=== PATIENT | female | born 2000 | race Caucasian/White ===

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

== ENCOUNTER 2018-04-27 08:47 | Outpatient (RCR) | payer MEDICAID ==
[~2018-04-27 08:47] MED LIST changes: -BENZ-13 PO; +BENZ100C18 PO; +HYDR-4226 PO; +HYDR-4227 PO; -HYDR-756 PO; -HYDR-757 PO
== END 2018-05-01 | disposition home or self-care (01) ==
PROVIDERS: ATTEND Pediatrics
DX: S83.92XA Sprain of unspecified site of left knee, initial encounter (principal); X50.0XXA Overexertion from strenuous movement or load, initial encounter; Y93.01 Activity, walking, marching and hiking

== ENCOUNTER 2018-05-19 08:06 | Outpatient (RCR) | payer MEDICAID | END 2018-05-25 13:05 | disposition home or self-care (01) | PROVIDERS: ATTEND Pediatrics | DX: S83.92XA Sprain of unspecified site of left knee, initial encounter (principal); X50.0XXA Overexertion from strenuous movement or load, initial encounter; Y93.01 Activity, walking, marching and hiking ==

== ENCOUNTER 2018-08-09 15:41 | Outpatient (RCR) | payer MEDICAID ==
[2018-08-09 16:29] LABS: BUN/CREATININE RATIO 11; CALCIUM 9.2 MG/DL (8.5-10.1); CARBON DIOXIDE 22 MMOL/L (21-32); CHLORIDE 108 MMOL/L (98-107); CREATININE SERUM 0.74 MG/DL (0.60-1.30); GFR ESTIMATED > 60; GLUCOSE 90 MG/DL (70-105); PHOSPHORUS 2.4 MG/DL (2.3-4.7); POTASSIUM 3.3 MMOL/L (3.6-5.0); SODIUM 140 MMOL/L (135-145); URIC ACID 5.8 MG/DL (2.6-7.2)
--- NOTE | 2018-08-09 16:51 | Diagnostic Imaging Report ---
INDICATION: Renal stones. TIME OF EXAM: 4:17 PM COMPARISON: Comparison is made with prior abdominal radiograph from 11/12/2017. FINDINGS: The bowel gas pattern is unremarkable. Subtle tiny calcifications overlie the right renal shadow, suggestive of previously seen right renal calculi. No calculi are identified overlying the left renal shadow. No definite ureteral calculi are seen. The pelvis is unremarkable. IMPRESSION: Right renal calculi. The study is otherwise unremarkable. Dictated by: Dictated on workstation # [id number]
== END 2018-11-07 | disposition home or self-care (01) ==
LOC: RAD 15:41
PROVIDERS: ATTEND Urology
DX: N20.0 Calculus of kidney (principal)
CPT/HCPCS: 36415; 74018; 80048; 82140; 82340; 82507; 82570; 83735; 83945; 83986; 84100; 84105; 84133; 84300; 84392; 84550; 84560

== ENCOUNTER 2019-02-16 07:42 | Emergency (ER) | payer MEDICAID | END 2019-02-16 10:03 | disposition home or self-care (01) | LOC: ER 07:42 ==

== ENCOUNTER → 2019-08-22 | Outpatient (CLI) | payer MEDICAID ==
[~2019-08-22] MED LIST changes: +ACET-93 PO; +CEPH500T PO; +IBUP-844 PO; +OXC5T PO; -TAMS0.4C98 PO; +TMSL.4C PO
--- NOTE | 2019-08-22 15:51 | Diagnostic Imaging Report ---
INDICATION: Vaginal bleeding. FINDINGS: There is an intrauterine gestational sac containing a pole measuring 2.3 cm consistent with 9 weeks 1 day gestation. No heart motion is detected consistent with demise. No preston-gestational sac hemorrhage is detected. Adnexa are unremarkable. No adnexal mass or free fluid is seen. IMPRESSION: Findings consistent with 9 week 1 day intrauterine demise. Dictated by: Dictated on workstation # [id number]
== END ==
LOC: RAD 12:17
PROVIDERS: ATTEND Obstetrics & Gynecology
DX: O46.91 Antepartum hemorrhage, unspecified, first trimester (principal); Z3A.09 9 weeks gestation of pregnancy
CPT/HCPCS: 76801; 76817

== ENCOUNTER 2020-01-11 19:27 | Emergency (ER) | payer MEDICAID ==
[~2020-01-11] VITALS: Ht 162 cm; Wt 70.0 kg
[2020-01-11 19:58] LABS: BILIRUBIN,URINE NEGATIVE (NEGATIVE); CLARITY,URINE CLEAR; COLOR,URINE YELLOW; GLUCOSE, URINE (UA) NEGATIVE (NEGATIVE); KETONES,URINE NEGATIVE (NEGATIVE); LEUKOCYTE ESTERASE ,URINE NEGATIVE (NEGATIVE); NITRITE,URINE NEGATIVE (NEGATIVE); PROTEIN,URINE NEGATIVE (NEGATIVE)
--- NOTE | 2020-01-11 20:03 | ED GU-Female ---
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 She had labs at Dr. Hickey. Her quant HCG had been going down. Had miscarriage in Aug 2019, required D and C. Emerson 2 days ago. Timing/Duration: just prior to arrival Severity/Quality: mild Radiation: none Associated Symptoms: denies symptoms Allergies and Home Medications Allergies Coded Allergies: levofloxacin (Verified Allergy, Severe, 12/08/16) tramadol (Verified Allergy, Unknown, HIVES, 07/10/14) Home Medications Acetaminophen 500 Mg Tablet, 1,000 MG PO Q8H PRN for PAIN-MILD (1-4) Prescribed by: ISRAEL FLORES on 08/24/19 1340 Ibuprofen 600 Mg Tablet, 600 MG PO Q6HR Prescribed by: ISRAEL FLORES on 08/24/19 1340 Oxycodone Hcl 5 Mg Tab, 5 MG PO Q4H PRN for PAIN-SEVERE (8-10) Prescribed by: ISRAEL FLORES on 08/24/19 1340 Patient Home Medication List Home Medication List Reviewed: Yes Review of Systems Review of Systems Constitutional: no symptoms reported, see HPI All Other Systemes Reviewed Negative Unless Noted: Yes Past Gxktpyv-Lihmhi-Fkqgrr Hx Past Med/Social Hx: Reviewed Nursing Past Med/Soc Hx Patient Social History Drug of Choice: marijuana use 2nd Hand Smoke Exposure: No Recent Hopitalizations: No Immunizations Up To Date Tetanus Booster (TDap): Less than 5yrs PED Vaccines UTD: Yes Date of Influenza Vaccine: May 03, 2017 Seasonal Allergies Seasonal Allergies: Yes Past Medical History Surgeries: Yes (R THUMB/TORN LIGAMENTS AND TENDONS, LITHOTRIPSY) Orthopedic, Renal Respiratory: Yes Asthma Currently Using CPAP: No Currently Using BIPAP: No Cardiac: No Neurological: No : Yes Last Menstrual Period: Oct 18, 2019 Hx : 2 Hx Para: 0 Hx Total # of Abortions (Sp): 1 Reproductive Disorders: No Sexually Transmitted Disease: No HIV/AIDS: No Genitourinary: Yes Kidney Stones Gastrointestinal: No Musculoskeletal: Yes (R THUMB) Fractures Endocrine: No HEENT: No Loss of Vision: Denies Hearing Impairment: Denies Cancer: No Psychosocial: No Integumentary: No Blood Disorders: No Family Medical History Cardiovascular disease 17 FATHER Hypertension 19 FATHER Respiratory disorder 19 FATHER No Pertinent Family Hx Physical Exam Vital Signs Vital Signs - First Documented 01/11/20 01/11/20 19:46 21:00 Temp 37.0 Pulse 88 Resp 18 B/P (MAP) 125/78 (94) Pulse Ox 100 O2 Delivery Room Air Capillary Refill : Height, Weight, BMI Height: 5'3.00" Weight: 165lbs. 0.0oz. 74.016408rv; 24.23 BMI Method:Stated General Appearance: WD/WN, no apparent distress Neck: non-tender, full range of motion, supple, normal inspection Cardiovascular: normal peripheral pulses, regular rate, rhythm Respiratory: chest non-tender, lungs clear, normal breath sounds Gastrointestinal: normal bowel sounds, non tender; No guarding, No rebound, No tenderness Back: normal inspection, no CVA tenderness, no vertebral tenderness Neurologic/Psychiatric: alert, normal mood/affect, oriented x 3 Skin: normal color, warm/dry Progress/Results/Core Measures Suspected Sepsis SIRS Temperature: Pulse: Respiratory Rate: Laboratory Tests 01/11/20 20:00: White Blood Count 7.6 Blood Pressure / Mean: Laboratory Tests 01/11/20 20:00: Creatinine 0.80, Platelet Count 369, Total Bilirubin 0.2 Results/Orders Lab Results Laboratory Tests Test 01/11/20 19:48 01/11/20 20:00 Range/Units Urine Color YELLOW Urine Clarity CLEAR Urine pH 6.0 5-9 Urine Specific Benjamin >=1.030 1.016-1.022 Urine Protein NEGATIVE NEGATIVE Urine Glucose (UA) NEGATIVE NEGATIVE Urine Ketones NEGATIVE NEGATIVE Urine Nitrite NEGATIVE NEGATIVE Urine Bilirubin NEGATIVE NEGATIVE Urine Urobilinogen 0.2 < = 1.0 MG/DL Urine Leukocyte Esterase NEGATIVE NEGATIVE Urine RBC (Auto) 3+ H NEGATIVE Urine RBC >100 H /HPF Urine WBC NONE /HPF Urine Squamous Epithelial Cells 2-5 /HPF Urine Crystals PRESENT H /LPF Urine Amorphous Sediment FEW KELLY URATES H /LPF Urine Bacteria FEW H /HPF Urine Casts NONE /LPF Urine Mucus NEGATIVE /LPF Urine Culture Indicated NO White Blood Count 7.6 4.3-11.0 10^3/uL Red Blood Count 4.44 4.35-5.85 10^6/uL Hemoglobin 12.2 11.5-16.0 G/DL Hematocrit 36 35-52 % Mean Corpuscular Volume 81 80-99 FL Mean Corpuscular Hemoglobin 28 25-34 PG Mean Corpuscular Hemoglobin Concent 34 32-36 G/DL Red Cell Distribution Width 11.9 10.0-14.5 % Platelet Count 369 130-400 10^3/uL Mean Platelet Volume 8.7 7.4-10.4 FL Neutrophils (%) (Auto) 47 42-75 % Lymphocytes (%) (Auto) 41 12-44 % Monocytes (%) (Auto) 9 0-12 % Eosinophils (%) (Auto) 3 0-10 % Basophils (%) (Auto) 0 0-10 % Neutrophils # (Auto) 3.6 1.8-7.8 X 10^3 Lymphocytes # (Auto) 3.1 1.0-4.0 X 10^3 Monocytes # (Auto) 0.7 0.0-1.0 X 10^3 Eosinophils # (Auto) 0.2 0.0-0.3 10^3/uL Basophils # (Auto) 0.0 0.0-0.1 10^3/uL Sodium Level 140 135-145 MMOL/L Potassium Level 3.7 3.6-5.0 MMOL/L Chloride Level 109 H 98-107 MMOL/L Carbon Dioxide Level 20 L 21-32 MMOL/L Anion Gap 11 5-14 MMOL/L Blood Urea Nitrogen 13 7-18 MG/DL Creatinine 0.80 0.60-1.30 MG/DL Estimat Glomerular Filtration Rate > 60 BUN/Creatinine Ratio 16 Glucose Level 73 70-105 MG/DL Calcium Level 9.2 8.5-10.1 MG/DL Corrected Calcium 9.0 8.5-10.1 MG/DL Total Bilirubin 0.2 0.1-1.0 MG/DL Aspartate Amino Transf (AST/SGOT) 14 5-34 U/L Alanine Aminotransferase (ALT/SGPT) 16 0-55 U/L Alkaline Phosphatase 67 40-136 U/L Total Protein 7.4 6.4-8.2 GM/DL Albumin 4.2 3.2-4.5 GM/DL Human Chorionic Gonadotropin, Quant 1046 H <5 MIU/ML My Orders Orders - POLLO RUIZ Cbc With Automated Diff (6/11/20 19:30) Hcg,Quantitative (01/11/20 19:30) Comprehensive Metabolic Panel (01/11/20 19:30) Urine Bedside (01/11/20 19:34) Ua Culture If Indicated (01/11/20 19:34) Vital Signs/I&O 01/11/20 01/11/20 19:46 21:00 Temp 37.0 37.0 Pulse 88 82 Resp 18 16 B/P (MAP) 125/78 (94) 122/79 (94) Pulse Ox 100 O2 Delivery Room Air Room Air Capillary Refill : Progress Note : Time: 19:40 Progress Note Patient seen and evaluated, will obtain labs. Declining need for Tylenol. Patient A+ blood type. 2230 Labs reviewed with patient. Will follow up with OB tomorrow. Discharge instructions and return precautions reviewed. Departure Impression Primary Impression: Threatened in first trimester Additional Impression: Vaginal spotting Disposition: HOME, SELF-CARE Condition: Stable Departure-Patient Inst. Decision time for Depature: 20:30 Referrals: NO,LOCAL PHYSICIAN (PCP) Primary Care Physician ISRAEL FLORES DO (Family) Primary Care Physician Patient Instructions: Threatened Miscarriage (DC) Add. Discharge Instructions: Increase water intake. You may take Tylenol 650 mg every 6-8 hours as needed for abdominal pain or cramping. Complete Vaginal rest Call for Follow Up with Dr. Flores. Return to the Emergency Dept for new,urgent health care needs. All discharge instructions reviewed with patient and/or family. Voiced understanding. Copy Copies To 1: ISRAEL FLORES AMY ARNP Jan 11, 2020 20:03
[2020-01-11 20:09] LABS: BASOPHILS % (AUTO) 0 % (0-10); EOSINOPHILS # (AUTO) 0.2 10^3/uL (0.0-0.3); EOSINOPHILS % (AUTO) 3 % (0-10); HEMATOCRIT 36 % (35-52); HEMOGLOBIN 12.2 G/DL (11.5-16.0); LYMPHOCYTES # (AUTO) 3.1 X 10^3 (1.0-4.0); LYMPHOCYTES % (AUTO) 41 % (12-44); MEAN CORPUSCULAR HEMOGLOBIN 28 PG (25-34); MEAN CORPUSCULAR HGB CONC 34 G/DL (32-36); MEAN CORPUSCULAR VOLUME 81 FL (80-99); MEAN PLATELET VOLUME 8.7 FL (7.4-10.4); MONOCYTES # (AUTO) 0.7 X 10^3 (0.0-1.0); MONOCYTES % (AUTO) 9 % (0-12); NEUTROPHILS # (AUTO) 3.6 X 10^3 (1.8-7.8); NEUTROPHILS % (AUTO) 47 % (42-75); PLATELET COUNT 369 10^3/uL (130-400); RED CELL DISTRIBUTION WIDTH 11.9 % (10.0-14.5); WHITE BLOOD COUNT 7.6 10^3/uL (4.3-11.0)
[2020-01-11 20:33] LABS: ALANINE AMINOTRANSFERASE 16 U/L (0-55); ALBUMIN 4.2 GM/DL (3.2-4.5); ALKALINE PHOSPHATASE 67 U/L (40-136); BILIRUBIN,TOTAL 0.2 MG/DL (0.1-1.0); BUN/CREATININE RATIO 16; CALCIUM 9.2 MG/DL (8.5-10.1); CARBON DIOXIDE 20 MMOL/L (21-32); CHLORIDE 109 MMOL/L (98-107); GFR ESTIMATED > 60; GLUCOSE 73 MG/DL (70-105); POTASSIUM 3.7 MMOL/L (3.6-5.0); SODIUM 140 MMOL/L (135-145); TOTAL PROTEIN 7.4 GM/DL (6.4-8.2)
[2020-01-11 20:34] LABS: BACTERIA,URINE FEW /HPF; RBC,URINE >100 /HPF
[2020-01-11 20:35] LABS: AMORPHOUS SEDIMENT,UR FEW AMOR URATES /LPF
[2020-01-11 21:00] VITALS: BP 122/79
--- OUTSIDE RECORDS SUMMARY | 2020-01-11 22:59 | XMS REPORT ---
Author Author Cedric MCPHERSON Organization [facility] Address [address] [place] [address] Care Team Providers Care Behavioral Therapist Name Role Phone RONDA MCPHERSON Unavailable PROBLEMS Type Condition ICD9-CM Code [id number] Code Onset Dates Condition S tatus SNOMED Code Problem Other chronic pain G89.29 Active 8 6696225 Problem Seasonal allergies J30.2 Active 4 20057236 Problem Asthma, exercise induced J45.990 Activ e 68898962 Problem Recurrent kidney stones N20.0 Active [id number] ALLERGIES No Information ENCOUNTERS Encounter Location Date Diagnosis [facility] [address] [facility] [id number] [address] [place] [phone] Sep, [facility] [address] [facility] [id number] [address] [place] [address] Aug, Fever R50.9 and Flu-like sym ptoms R68.89 [facility] [address] [facility] [id number] [address] [place] [address] Jul, care in first trime ster Z34.91 [facility] [address] [facility] [id number] [address] [place] [id number] Jul, [facility] [address] [facility] [id number] [address] [place] [address] Jul, Currently in first trimester with unknown gestational age Z34.91 and care in first trimester Z34.91 [facility] [address] [facility] [id number] [address] [address] Jul, care in first trime ster Z34.91 [facility] [address] [facility] [id number] [address] [address] Jul, Currently in first trimester with unknown gestational age Z34.91 and care, first in first trimester Z34.01 [facility] [address] [place] [id number] [address] [place] [address] May, [facility] [address] [place] [id number] [address] [place] [address] Apr, Sprain of left knee, unspeci fied ligament, initial encounter S83.92XA [place] [address] [address] Mar, [facility] [address] [address] Mar, [place] [address] [address] Mar, Injury of left knee, initial encounter S89.92XA and Acute pain of left knee M25.562 [facility] [address] [place] [id number] [address] [place] [address] Dec, Seasonal allergies J30.2 ; C ough R05 and Gagging episode R19.8 [place] [address] [address] November, Sore throat J02.9 ; Otalgia, bilateral H92.03 and Allergic rhinitis, unspecified seasonality, unspecified trigger J30.9 [place] [address] [place] [id number] [address] [address] Oct, [place] [address] [address] Jun, Encounter for Depo-Provera c ontraception Z30.42 [place] [address] [place] [id number] [address] [place] [address] Mar, Encounter for Depo-Provera c ontraception Z30.42 [place] [address] [place] [id number] [address] [place] [address] Jan, test negative Z32. 02 [place] [address] [facility] [id number] [address] [place] [address] 15 Dec, 2016 Surveillance for contr ol, oral contraceptives Z30.41 and Encounter for Depo-Provera contraception Z30.42 [place] [address] [facility] [id number] [address] [place] [address] November, Well woman exam without gyne cological exam Z00.00 [place] [address] [facility] [id number] [address] [place] [address] Sep, Pharyngitis due to other org anism J02.8 [place] [address] [facility] [id number] [address] [place] [address] Aug, [place] [address] [place] [id number] [address] [address] Aug, [place] [address] [address] Aug, Vaginal candidiasis B37.3 [place] [address] [place] [id number] [address] [address] Aug, Vaginal candidiasis B37.3 [place] [address] [place] [id number] [address] [place] [address] 14 Apr, 2016 Visit for TB skin test Z11.1 [place] [address] [place] [id number] [address] [place] [address] Mar, Visit for TB skin test Z11.1 and Screening for tuberculosis Z11.1 [place] [address] [facility] [id number] [address] [place] [address] Mar, Routine health maintenance Z 00.00 and Recurrent kidney stones N20.0 [place] [address] [facility] [id number] [address] [place] [address] Mar, Ingrown right greater toenai l L60.0 and Acute non-recurrent frontal sinusitis J01.10 [place] [address] [place] [address] Mar, Ingrowing right great toenai l L60.0 and Recurrent kidney stones N20.0 [place] [address] [place] [id number] [address] [place] [address] Dec, Well woman exam without gyne cological exam Z00.00 and Encounter for surveillance of contraceptive pills Z30.41 [place] [address] [address] Oct, Surveillance for contr ol, oral contraceptives Z30.41 and Sore throat J02.9 [place] [address] [address] Sep, Renal calculi N20.0 [place] [address] [address] Aug, Surveillance of contraceptiv e injection Z30.42 ; Encounter for Depo-Provera contraception Z30.42 and Encounter for counseling regarding contraception Z30.9 [place] [address] [address] Aug, Asthma, exercise induced J45 .990 [place] [address] [place] [address] May, [facility] [place] [id number] [place] [id number] Mar, Sports physical V70.3 ; Exer cise counseling V65.41 ; Dietary counseling V65.3 and Asthma 493.90 [place] [address] [place] [id number] [address] [place] [address] Mar, Encounter for contraceptive management V25.9 [place] [address] [place] [address] Jan, Routine child health exam V2 0.2 ; GARDASIL (HPV) DX V04.89 ; MENINGOCOCCAL DX V03.89 ; Dietary counseling and surveillance V65.3 ; Exercise counseling V65.41 and Recurrent nephrolithiasis 592.0 [facility] [address] [id number] [address] [place] [address] 17 Jan, 2015 Kidney stone 592.0 [facility] [address] [id number] [address] [address] 08 Jan, 2015 Herpes simplex without menti on of complication 054.9 [facility] [address] [id number] [address] [address] Dec, [facility] [address] [id number] [address] [address] November, Encounter for contraceptive management V25.9 [facility] [address] [id number] [address] [address] 14 Oct, 2014 [facility] [address] [facility] [id number] [address] [address] Oct, [facility] [address] [id number] [address] [address] Sep, [facility] [address] [id number] [address] [address] Sep, [facility] [address] [facility] [id number] [address] [address] Sep, [facility] [address] [id number] [address] [address] Sep, [facility] [address] [id number] [address] [address] Aug, [facility] [address] [id number] [address] [address] Aug, [facility] [address] [id number] [address] [address] Aug, [facility] [address] [id number] [address] [place] [address] Aug, [facility] [address] [id number] [address] [place] [address], [place] [address] 16 Jul, 2014 [facility] [address] [id number] [address] [place] [address], [place] [address] Jul, [facility] [address] [id number] [address] [place] [address], [place] [address] Jul, [facility] [address] [id number] [address] [place] [address], [place] [address] Jul, [facility] [address] [id number] [address] [place] [address], [place] [address] Jul, [facility] [address] [id number] [address] [place] [address], [place] [address] Jul, [facility] [address] [id number] [address] [place] [address], [place] [address] Jul, [facility] [address] [id number] [address] [place] [address], [place] [address] Jul, [facility] [address] [id number] [address] [place] [address], [place] [address] Jul, [facility] [address] [id number] [address] [place] [address], [place] [address] Jun, [facility] [address] [id number] [address] [place] [address], [place] [address] Jun, [facility] [address] [id number] [address] [place] [address], [place] [address] Jun, [facility] [address] [id number] [address] [place] [address], [place] [address] Jun, [facility] [address] [id number] [address] [place] [address], [place] [address] Jun, [facility] [address] [id number] [address] [place] [address], [place] [address] Jun, [facility] [address] [id number] [address] [place] [address], [place] [address] Jun, [facility] [address] [id number] [address] [place] [address], [place] [address] Jun, [facility] [address] [id number] [address] [place] [address], [place] [address] Jun, [facility] [address] [id number] [address] [place] [address], [place] [address] Jun, [facility] [address] [id number] [address] [place] [address], [place] [address] Jun, [facility] [address] [id number] [address] [place] [address], [place] [address] Jun, [facility] [address] [id number] [address] [place] [address], [place] [address] Jun, [facility] [address] [id number] [address] [place] [address], [place] [address] Jun, [facility] [address] [id number] [address] [place] [address], [place] [address] May, [facility] [address] [id number] [address] [place] [address], [place] [address] May, [facility] [address] [id number] [address] [place] [address], [place] [address] May, [facility] [address] [id number] [address] [place] [address], [place] [address] May, [facility] [address] [id number] [address] [place] [address], [place] [address] May, [facility] [address] [id number] [address] [place] [address], [place] [address] May, [facility] [address] [id number] [address] [place] [address], [place] [address] May, [facility] [address] [id number] [address] [place] [address], [place] [address] May, [facility] [address] [id number] [address] [place] [address], [place] [address] May, [facility] [address] [id number] [address] [place] [address], [place] [address] May, [facility] [address] [id number] [address] [place] [address], [place] [address] Mar, [facility] [address] [id number] [address] [place] [address], [place] [address] Mar, [facility] [address] [id number] [address] [place] [address], [place] [address] Jan, [facility] [address] [id number] [address] [place] [address], [place] [address] Jan, [facility] [address] [id number] [address] [place] [address], [place] [address] Jan, [facility] [address] [id number] [address] [place] [address], [place] [address] Jan, [facility] [address] [id number] [address] [place] [address], [place] [address] Jan, [facility] [address] [id number] [address] [place] [address], [place] [address] Jan, [facility] [address] [id number] [address] [place] [address], [place] [address] November, [facility] [address] [id number] [address] [place] [address], [place] [address] November, [facility] [address] [id number] [address] [place] [address], [place] [address] November, [facility] [address] [id number] [address] [place] [address], [place] [address] November, [facility] [address] [id number] [address] [place] [address], [place] [address] Oct, [facility] [address] [id number] [address] [place] [address], [place] [address] Oct, [facility] [address] [id number] [address] [place] [address], [place] [address] Oct, [facility] [address] [id number] [address] [place] [address], [place] [address] Oct, [facility] [address] [id number] [address] [place] [address], [place] [address] Sep, [facility] [address] [id number] [address] [place] [address], [place] [address] Sep, [facility] [address] [id number] [address] [place] [address], [place] [address] Sep, [facility] [address] [id number] [address] [place] [address], [place] [address] Sep, [facility] [address] [id number] [address] [place] [address], [place] [address] Aug, [facility] [address] [id number] [address] [place] [address], [place] [address] Aug, [facility] [address] [id number] [address] [place] [address], [place] [address] Aug, [facility] [address] [id number] [address] [place] [address], [place] [address] Aug, [facility] [address] [id number] [address] [place] [address], [place] [address] Aug, [facility] [address] [id number] [address] [place] [address], [place] [address] Aug, [facility] [address] [id number] [address] [place] [address], [place] [address] Jul, [facility] [address] [id number] [address] [place] [address], [place] [address] Jul, [facility] [address] [id number] [address] [place] [address], [place] [address] Jul, [facility] [address] [id number] [address] [place] [address], [place] [address] Jul, [facility] [address] [id number] [address] [place] [address], [place] [address] Jun, [facility] [address] [id number] [address] [place] [address], [place] [address] Jun, [facility] [address] [id number] [address] [place] [address], [place] [address] Jun, [facility] [address] [id number] [address] [place] [address], [place] [address] Jun, [facility] [address] [id number] [address] [place] [address], [place] [address] Jun, [facility] [address] [id number] [address] [place] [address], [place] [address] May, [facility] [address] [id number] [address] [place] [address], [place] [address] May, [facility] [address] [id number] [address] [address] May, [facility] [address] [id number] [address] [place] [address] 19 May, 2013 [facility] [address] [id number] [address] [place] [address] 18 May, 2013 [facility] [address] [id number] [address] [place] [address] 18 May, 2013 [facility] [address] [id number] [address] [place] [address] 14 May, 2013 [facility] [address] [id number] [address] [address] 12 May, 2013 [facility] [address] [id number] [address] [place] [address] 11 May, 2013 [facility] [address] [id number] [address] [place] [address] 10 May, 2013 [facility] [address] [id number] [address] [place] [address] 10 May, 2013 [facility] [address] [id number] [address] [place] [address], [place] [address] 27 Apr, 2013 [facility] [address] [id number] [address] [place] [address], [place] [address] 19 Apr, 2013 [facility] [address] [id number] [address] [place] [address], [place] [address] 18 Jan, 2013 [facility] [address] [id number] [address] [place] [address], [place] [address] 16 Jan, 2013 [facility] [address] [id number] [address] [place] [address], [place] [address] 14 Dec, 2012 [facility] [address] [id number] [address] [place] [address], [place] [address] Dec, [facility] [address] [id number] [address] [place] [address], [place] [address] November, [facility] [address] [id number] [address] [place] [address], [place] [address] November, [facility] [address] [id number] [address] [place] [address], [place] [address] November, [facility] [address] [id number] [address] [place] [address], [place] [address] November, [facility] [address] [id number] [address] [place] [address], [place] [address] 24 Oct, 2012 [facility] [address] [id number] [address] [place] [address], [place] [address] 14 Sep, 2012 [facility] [address] [id number] [address] [place] [address], [place] [address] 13 Sep, 2012 [facility] [address] [id number] [address] [place] [address], [place] [address] 15 Sep, 2012 [facility] [address] [id number] [address] [place] [address], [place] [address] 14 Sep, 2012 [facility] [address] [id number] [address] [place] [address], [place] [address] 08 Sep, 2012 [facility] [address] [id number] [address] [place] [address], [place] [address] Sep, [facility] [address] [id number] [address] [place] [address], [place] [address] Aug, [facility] [address] [id number] [address] [place] [address], [place] [address] Aug, [facility] [address] [id number] [address] [place] [address], [place] [address] Jul, [facility] [address] [id number] [address] [place] [address], [place] [address] Jul, [facility] [address] [id number] [address] [place] [address], [place] [address] Jun, [facility] [address] [id number] [address] [place] [address], [place] [address] Jun, [facility] [address] [id number] [address] [place] [address], [place] [address] Jun, [facility] [address] [id number] [address] [place] [address], [place] [address] May, [facility] [address] [id number] [address] [place] [address], [place] [address] 31 May, 2012 [facility] [address] [id number] [address] [place] [address], [place] [address] 24 May, 2012 [facility] [address] [id number] [address] [place] [address], [place] [address] 24 May, 2012 [facility] [address] [id number] [address] [place] [address], [place] [address] 27 Apr, 2012 [facility] [address] [id number] [address] [place] [address], [place] [address] 15 Apr, 2012 [facility] [address] [id number] [address] [phone] Sep, [facility] [address] [facility] [id number] [address] [place] [phone] Mar, [facility] [address] [facility] [id number] [address] [place] [phone] Jan, [facility] [address] [facility] [id number] [address] [place] [phone] Oct, [facility] [address] [facility] [id number] [address] [place] [id number] May, IMMUNIZATIONS No Known Immunizations SOCIAL HISTORY Never Assessed REASON FOR VISIT PLAN OF CARE VITAL SIGNS MEDICATIONS Unknown Medications RESULTS No Results PROCEDURES No Known procedures INSTRUCTIONS MEDICATIONS ADMINISTERED No Known Medications MEDICAL (GENERAL) HISTORY Type Description Date Medical History asthma Medical History kidney stones Medical History 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
--- OUTSIDE RECORDS SUMMARY | 2020-01-11 22:59 | XMS REPORT ---
Author Author Cedric AVELAR Organization [facility] Address [address] [place] [address] Care Team Providers Care Energy Infrastructure Engineer Name Role Phone LIZA AVELAR Unavailable PROBLEMS Type Condition ICD9-CM Code ICC62-YB Code Onset Dates Condition S tatus SNOMED Code Problem Other chronic pain G89.29 Active 8 3783307 Problem Seasonal allergies J30.2 Active 4 58258843 Problem Asthma, exercise induced J45.990 Activ e 01840200 Problem Recurrent kidney stones N20.0 Active [id number] ALLERGIES No Information ENCOUNTERS Encounter Location Date Diagnosis [facility] [address] [id number] [address] [place] [address] Sep, [facility] [address] [facility] [id number] [address] [place] [address] Aug, Fever R50.9 and Flu-like sym ptoms R68.89 [facility] [address] [facility] [id number] [address] [place] [address] Jul, care in first trime ster Z34.91 [facility] [address] [id number] [address] [place] [address] Jul, [facility] [address] [facility] [id number] [address] [place] [address] Jul, Currently in first trimester with unknown gestational age Z34.91 and care in first trimester Z34.91 [facility] [address] [facility] [id number] [address] [place] [address] Jul, care in first trime ster Z34.91 [facility] [address] [id number] [address] [place] [address] Jul, Currently in first trimester with unknown gestational age Z34.91 and care, first in first trimester Z34.01 [facility] [address] [address] May, [facility] [address] [address] Apr, Sprain of left knee, unspeci fied ligament, initial encounter S83.92XA [place] [address] [address] Mar, [place] [address] [address] Mar, [place] [address] [address] Mar, Injury of left knee, initial encounter S89.92XA and Acute pain of left knee M25.562 [facility] [address] [address] Dec, Seasonal allergies J30.2 ; C ough R05 and Gagging episode R19.8 [place] [address] [address] November, Sore throat J02.9 ; Otalgia, bilateral H92.03 and Allergic rhinitis, unspecified seasonality, unspecified trigger J30.9 [place] [address] [address] Oct, [place] [address] [address] Jun, Encounter for Depo-Provera c ontraception Z30.42 [place] [address] [address] Mar, Encounter for Depo-Provera c ontraception Z30.42 [place] [address] [address] Jan, test negative Z32. 02 [place] [address] [facility] [id number] [address] [place] [address] 15 Dec, 2016 Surveillance for contr ol, oral contraceptives Z30.41 and Encounter for Depo-Provera contraception Z30.42 [place] [address] [place] [id number] [address] [place] [address] November, Well woman exam without gyne cological exam Z00.00 [place] [address] [id number] [address] [place] [address] Sep, Pharyngitis due to other org anism J02.8 [place] [address] [place] [id number] [address] [place] [address] Aug, [place] [address] [place] [id number] [address] [place] [address] Aug, [place] [address] [place] [id number] [address] [place] [address] Aug, Vaginal candidiasis B37.3 [place] [address] [id number] [address] [place] [address] Aug, Vaginal candidiasis B37.3 [place] [address] [id number] [address] [place] [address] 14 Apr, 2016 Visit for TB skin test Z11.1 [place] [id number] [place] [address] Mar, Visit for TB skin test Z11.1 and Screening for tuberculosis Z11.1 [place] [address] [address] [id number] [address] [place] [address] Mar, Routine health maintenance Z 00.00 and Recurrent kidney stones N20.0 [place] [address] [id number] [address] [place] [address] 05 Mar, 2016 Ingrown right greater toenai l L60.0 and Acute non-recurrent frontal sinusitis J01.10 [place] [address] [place] [id number] [address] [place] [address] Mar, Ingrowing right great toenai l L60.0 and Recurrent kidney stones N20.0 [place] [address] [place] [id number] [address] [place] [address] Dec, Well woman exam without gyne cological exam Z00.00 and Encounter for surveillance of contraceptive pills Z30.[address] [address] Oct, Surveillance for contr ol, oral contraceptives Z30.41 and Sore throat J02.[address] [address] Sep, Renal calculi N20.[address] [address] Aug, Surveillance of contraceptiv e injection Z30.42 ; Encounter for Depo-Provera contraception Z30.42 and Encounter for counseling regarding contraception Z30.9 [place] [address] [place] [address] Aug, Asthma, exercise induced J45 .990 [place] [address] [place] [address] May, [facility] [id number] [place] [id number] Mar, Sports physical V70.3 ; Exer cise counseling V65.41 ; Dietary counseling V65.3 and Asthma 493.90 [place] [address] [place] [address] [id number] [address] [place] [address] Mar, Encounter for contraceptive management V25.9 [place] [address] [place] [address] Jan, Routine child health exam V2 0.2 ; GARDASIL (HPV) DX V04.89 ; MENINGOCOCCAL DX V03.89 ; Dietary counseling and surveillance V65.3 ; Exercise counseling V65.41 and Recurrent nephrolithiasis 592.0 [facility] [address] [id number] [address] [place] [address] 17 Jan, 2015 Kidney stone 592.0 [facility] [address] [facility] [id number] [address] [place] [address] 08 Jan, 2015 Herpes simplex without menti on of complication 054.9 [facility] [address] [id number] [address] [place] [address] Dec, [facility] [address] [id number] [address] [place] [address] November, Encounter for contraceptive management V25.9 [facility] [address] [id number] [address] [place] [address] 14 Oct, 2014 [facility] [address] [facility] [id number] [address] [place] [address] Oct, [facility] [address] [id number] [address] [place] [address] Sep, [facility] [address] [id number] [address] [place] [address] Sep, [facility] [address] [facility] [id number] [address] [place] [address] Sep, [facility] [address] [id number] [address] [place] [address] Sep, [facility] [address] [id number] [address] [place] [address] Aug, [facility] [address] [id number] [address] [place] [address] Aug, [facility] [address] [facility] [id number] [address] [place] [address] Aug, [facility] [address] [id number] [address] [place] [address] Aug, [facility] [address] [id number] [address] [place] [address], [place] [address] 16 Jul, 2014 [facility] [address] [id number] [address] [place] [address], [place] [address] Jul, [facility] [address] [id number] [address] [place] [address], [place] [address] Jul, [facility] [address] [id number] [address] [place] [address], [place] [address] Jul, [facility] [address] [id number] [address] [place] [address], [place] [address] Jul, [facility] [address] [id number] [address] [place] [address], [place] [address] Jul, [facility] [address] [id number] [address] [place] [address], [place] [address] Jul, [facility] [address] [id number] [address] [place] [address], [place] [address] Jul, [facility] [address] [id number] [address] [place] [address], [place] [address] Jul, [facility] [address] [id number] [address] [place] [address], [place] [address] Jun, [facility] [address] [id number] [address] [place] [address], [place] [address] Jun, [facility] [address] [id number] [address] [place] [address], [place] [address] Jun, [facility] [address] [id number] [address] [place] [address], [place] [address] Jun, [facility] [address] [id number] [address] [place] [address], [place] [address] Jun, [facility] [address] [id number] [address] [place] [address], [place] [address] Jun, [facility] [address] [id number] [address] [place] [address], [place] [address] Jun, [facility] [address] [id number] [address] [place] [address], [place] [address] Jun, [facility] [address] [id number] [address] [place] [address], [place] [address] Jun, [facility] [address] [id number] [address] [place] [address], [place] [address] Jun, [facility] [address] [id number] [address] [place] [address], [place] [address] Jun, [facility] [address] [id number] [address] [place] [address], [place] [address] Jun, [facility] [address] [id number] [address] [place] [address], [place] [address] Jun, [facility] [address] [id number] [address] [place] [address], [place] [address] Jun, [facility] [address] [id number] [address] [place] [address], [place] [address] May, [facility] [address] [id number] [address] [place] [address], [place] [address] May, [facility] [address] [id number] [address] [place] [address] May, [facility] [address] [id number] [address] [place] [address] May, [facility] [address] [id number] [address] [place] [address] May, [facility] [address] [id number] [address] [place] [address], [place] [address] May, [facility] [address] [id number] [address] [place] [address] May, [facility] [address] [id number] [address] [place] [address] May, [facility] [address] [id number] [address] [place] [address] May, [facility] [address] [id number] [address] [place] [address], [place] [address] May, [facility] [address] [id number] [address] [place] [address], [place] [address] Mar, [facility] [address] [id number] [address] [place] [address], [place] [address] Mar, [facility] [address] [id number] [address] [place] [address], [place] [address] Jan, [facility] [address] [id number] [address] [place] [address], [place] [address] Jan, [facility] [address] [id number] [address] [place] [address], [place] [address] Jan, [facility] [address] [id number] [address] [place] [address], [place] [address] Jan, [facility] [address] [id number] [address] [place] [address], [place] [address] Jan, [facility] [address] [id number] [address] [place] [address], [place] [address] Jan, [facility] [address] [id number] [address] [place] [address], [place] [address] November, [facility] [address] [id number] [address] [place] [address], [place] [address] November, [facility] [address] [id number] [address] [place] [address], [place] [address] November, [facility] [address] [id number] [address] [place] [address], [place] [address] November, [facility] [address] [id number] [address] [place] [address], [place] [address] Oct, [facility] [address] [id number] [address] [place] [address], [place] [address] Oct, [facility] [address] [id number] [address] [place] [address], [place] [address] Oct, [facility] [address] [id number] [address] [place] [address], [place] [address] Oct, [facility] [address] [id number] [address] [place] [address], [place] [address] Sep, [facility] [address] [id number] [address] [place] [address], [place] [address] Sep, [facility] [address] [id number] [address] [place] [address], [place] [address] Sep, [facility] [address] [id number] [address] [place] [address], [place] [address] Sep, [facility] [address] [id number] [address] [place] [address], [place] [address] Aug, [facility] [address] [id number] [address] [place] [address], [place] [address] Aug, [facility] [address] [id number] [address] [place] [address], [place] [address] Aug, [facility] [address] [id number] [address] [place] [address], [place] [address] Aug, [facility] [address] [id number] [address] [place] [address], [place] [address] Aug, [facility] [address] [id number] [address] [place] [address], [place] [address] Aug, [facility] [address] [id number] [address] [place] [address], [place] [address] Jul, [facility] [address] [id number] [address] [place] [address], [place] [address] Jul, [facility] [address] [id number] [address] [place] [address], [place] [address] Jul, [facility] [address] [id number] [address] [place] [address], [place] [address] Jul, [facility] [address] [id number] [address] [place] [address], [place] [address] Jun, [facility] [address] [id number] [address] [place] [address], [place] [address] Jun, [facility] [address] [id number] [address] [place] [address], [place] [address] Jun, [facility] [address] [id number] [address] [place] [address], [place] [address] Jun, [facility] [address] [id number] [address] [place] [address], [place] [address] Jun, [facility] [address] [id number] [address] [place] [address], [place] [address] May, [facility] [address] [id number] [address] [place] [address], [place] [address] May, [facility] [address] [id number] [address] [place] [address] May, [facility] [address] [id number] [address] [place] [address], [place] [address] 19 May, 2013 [facility] [address] [id number] [address] [place] [address] 18 May, 2013 [facility] [address] [id number] [address] [place] [address] 18 May, 2013 [facility] [address] [id number] [address] [place] [address] 14 May, 2013 [facility] [address] [id number] [address] [place] [address], [place] [address] 12 May, 2013 [facility] [address] [id number] [address] [place] [address] 11 May, 2013 [facility] [address] [id number] [address] [place] [address] 10 May, 2013 [facility] [address] [id number] [address] [place] [address], [place] [address] 10 May, 2013 [facility] [address] [id number] [address] [place] [address], [place] [address] 27 Apr, 2013 [facility] [address] [id number] [address] [place] [address], [place] [address] 19 Apr, 2013 [facility] [address] [id number] [address] [place] [address], [place] [address] 18 Jan, 2013 [facility] [address] [id number] [address] [place] [address], [place] [address] 16 Jan, 2013 [facility] [address] [id number] [address] [place] [address], [place] [address] 14 Dec, 2012 [facility] [address] [id number] [address] [place] [address], [place] [address] Dec, [facility] [address] [id number] [address] [place] [address], [place] [address] November, [facility] [address] [id number] [address] [place] [address], [place] [address] November, [facility] [address] [id number] [address] [place] [address], [place] [address] November, [facility] [address] [id number] [address] [place] [address], [place] [address] November, [facility] [address] [id number] [address] [place] [address], [place] [address] 24 Oct, 2012 [facility] [address] [id number] [address] [place] [address], [place] [address] 14 Sep, 2012 [facility] [address] [id number] [address] [place] [address], [place] [address] Sep, [facility] [address] [id number] [address] [place] [address], [place] [address] 15 Sep, 2012 [facility] [address] [id number] [address] [place] [address], [place] [address] 14 Sep, 2012 [facility] [address] [id number] [address] [place] [address], [place] [address] 08 Sep, 2012 [facility] [address] [id number] [address] [place] [address], [place] [address] Sep, [facility] [address] [id number] [address] [place] [address], [place] [address] Aug, [facility] [address] [id number] [address] [place] [address], [place] [address] Aug, [facility] [address] [id number] [address] [place] [address], [place] [address] Jul, [facility] [address] [id number] [address] [place] [address], [place] [address] Jul, [facility] [address] [id number] [address] [place] [address], [place] [address] Jun, [facility] [address] [id number] [address] [place] [address], [place] [address] Jun, [facility] [address] [id number] [address] [place] [address], [place] [address] Jun, [facility] [address] [id number] [address] [place] [address] May, [facility] [address] [id number] [address] [place] [address] 31 May, 2012 [facility] [address] [id number] [address] [place] [address] 24 May, 2012 [facility] [address] [id number] [address] [place] [address], [place] [id number] 24 May, 2012 [facility] [address] [id number] [address] [place] [address], [place] [phone] 27 Apr, 2012 [facility] [address] [id number] [address] [place] [id number] 15 Apr, 2012 [facility] [address] [id number] [address] [place] [phone] Sep, [facility] [address] [facility] [id number] [address] [place] [phone] Mar, [facility] [address] [facility] [id number] [address] [place] [phone] Jan, [facility] [address] [facility] [id number] [address] [place] [phone] Oct, [facility] [address] [facility] [id number] [address] [place] [id number] May, IMMUNIZATIONS No Known Immunizations SOCIAL HISTORY Never Assessed REASON FOR VISIT PLAN OF CARE VITAL SIGNS Height 62 in 2013-04-28 Weight 125.4 lbs 2013-04-28 Temperature 98.3 degrees Fahrenheit 2013-04-28 Heart Rate 88 bpm 2013-04-28 Respiratory Rate 16 2013-04-28 Blood pressure systolic 118 mmHg 2013-04-28 Blood pressure diastolic 82 mmHg 2013-04-28 MEDICATIONS Unknown Medications RESULTS No Results PROCEDURES No Known procedures INSTRUCTIONS MEDICATIONS ADMINISTERED No Known Medications MEDICAL (GENERAL) HISTORY Type Description Date Medical History asthma Medical History kidney stones Medical History HSV 1 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
--- OUTSIDE RECORDS SUMMARY | 2020-01-11 22:59 | XMS REPORT ---
Author Author Cedric COFFEY Organization [facility] Address [address] [place] [address] Care Team Providers Care Janitor Supervisor Name Role Phone CATARINA COFFEY Unavailable PROBLEMS Type Condition ICD9-CM Code QDB58-WQ Code Onset Dates Condition S tatus SNOMED Code Problem Other chronic pain G89.29 Active 8 4336576 Problem Seasonal allergies J30.2 Active 4 42084691 Problem Asthma, exercise induced J45.990 Activ e 49403469 Problem Recurrent kidney stones N20.0 Active [id number] ALLERGIES No Information ENCOUNTERS Encounter Location Date Diagnosis [facility] [address] [facility] [id number] [address] [place] [address] Sep, [facility] [address] [facility] [id number] [address] [place] [address] Aug, Fever R50.9 and Flu-like sym ptoms R68.89 [facility] [address] [facility] [id number] [address] [place] [address] Jul, care in first trime ster Z34.91 [facility] [address] [facility] [id number] [address] [place] [address] Jul, [facility] [address] [place] [id number] [address] [place] [address] Jul, Currently in first trimester with unknown gestational age Z34.91 and care in first trimester Z34.91 [facility] [address] [facility] [id number] [address] [place] [address] Jul, care in first trime ster Z34.91 [facility] [address] [facility] [id number] [address] [place] [address] Jul, Currently in first trimester with unknown gestational age Z34.91 and care, first in first trimester Z34.01 [facility] [address] [place] [id number] [address] [place] [address] May, [facility] [address] [address] Apr, Sprain of left knee, unspeci fied ligament, initial encounter S83.92XA [place] [address] [address] Mar, [facility] [address] [address] Mar, [place] [address] [address] Mar, Injury of left knee, initial encounter S89.92XA and Acute pain of left knee M25.562 [facility] [address] [address] Dec, Seasonal allergies J30.2 ; C ough R05 and Gagging episode R19.8 [place] [address] [address] November, Sore throat J02.9 ; Otalgia, bilateral H92.03 and Allergic rhinitis, unspecified seasonality, unspecified trigger J30.9 [place] [address] [address] Oct, [place] [address] [address] Jun, Encounter for Depo-Provera c ontraception Z30.42 [place] [address] [address] Mar, Encounter for Depo-Provera c ontraception Z30.42 [place] [address] [place] [id number] [address] [place] [address] 05 Marlo, 2017 test negative Z32. 02 [place] [id number] [facility] [id number] [address] [place] [address] 15 Dec, 2016 Surveillance for contr ol, oral contraceptives Z30.41 and Encounter for Depo-Provera contraception Z30.42 [place] [address] [facility] [id number] [address] [place] [address] November, Well woman exam without gyne cological exam Z00.00 [place] [address] [facility] [id number] [address] [place] [address] 23 Sep, 2016 Pharyngitis due to other org anism J02.8 [place] [address] [facility] [id number] [address] [place] [address] Aug, [place] [address] [facility] [id number] [address] [place] [address] Aug, [place] [address] [place] [id number] [address] [place] [address] Aug, Vaginal candidiasis B37.3 [place] [address] [place] [id number] [address] [place] [address] Aug, Vaginal candidiasis B37.3 [place] [address] [place] [id number] [address] [place] [address] 14 Apr, 2016 Visit for TB skin test Z11.1 [place] [address] [place] [id number] [address] [place] [address] Mar, Visit for TB skin test Z11.1 and Screening for tuberculosis Z11.1 [place] [address] [place] [id number] [address] [place] [address] Mar, Routine health maintenance Z 00.00 and Recurrent kidney stones N20.0 [place] [address] [facility] [id number] [address] [place] [address] 05 Mar, 2016 Ingrown right greater toenai l L60.0 and Acute non-recurrent frontal sinusitis J01.10 [place] [address] [place] [id number] [address] [place] [address] Mar, Ingrowing right great toenai l L60.0 and Recurrent kidney stones N20.0 [place] [address] [place] [id number] [address] [place] [address] Dec, Well woman exam without gyne cological exam Z00.00 and Encounter for surveillance of contraceptive pills Z30.41 [place] [address] [address] Oct, Surveillance for contr ol, oral contraceptives Z30.41 and Sore throat J02.9 [place] [address] [address] Sep, Renal calculi N20.0 [place] [address] [place] [id number] [address] [place] [address] 18 Aug, 2015 Surveillance of contraceptiv e injection Z30.42 ; Encounter for Depo-Provera contraception Z30.42 and Encounter for counseling regarding contraception Z30.9 [place] [id number] [place] [address] Aug, Asthma, exercise induced J45 .990 [place] [id number] [place] [address] May, [facility] [id number] [place] [id number] Mar, Sports physical V70.3 ; Exer cise counseling V65.41 ; Dietary counseling V65.3 and Asthma 493.90 [place] [address] [place] [id number] [address] [place] [address] Mar, Encounter for contraceptive management V25.9 [place] [address] [place] [address] Jan, Routine child health exam V2 0.2 ; GARDASIL (HPV) DX V04.89 ; MENINGOCOCCAL DX V03.89 ; Dietary counseling and surveillance V65.3 ; Exercise counseling V65.41 and Recurrent nephrolithiasis 592.0 [facility] [address] [id number] [address] [place] [address] 17 Jan, 2015 Kidney stone 592.0 [facility] [address] [id number] [address] [place] [address] 08 Jan, 2015 Herpes simplex without menti on of complication 054.9 [facility] [address] [id number] [address] [place] [address] 07 Dec, 2014 [facility] [address] [id number] [address] [place] [address] November, Encounter for contraceptive management V25.9 [facility] [address] [id number] [address] [place] [address] 14 Oct, 2014 [facility] [address] [id number] [address] [place] [address] Oct, [facility] [address] [id number] [address] [place] [address] Sep, [facility] [address] [id number] [address] [place] [address] Sep, [facility] [address] [id number] [address] [place] [address] Sep, [facility] [address] [id number] [address] [place] [address] Sep, [facility] [address] [id number] [address] [place] [address] Aug, [facility] [address] [id number] [address] [place] [address] Aug, [facility] [address] [id number] [address] [place] [address] Aug, [facility] [address] [id number] [address] [place] [address] Aug, [facility] [address] [id number] [address] [place] [address], [place] [address] 16 Jul, 2014 [facility] [address] [id number] [address] [place] [address], [place] [address] 16 Jul, 2014 [facility] [address] [id number] [address] [place] [address], [place] [address] Jul, [facility] [address] [id number] [address] [place] [address], [place] [address] Jul, [facility] [address] [id number] [address] [place] [address], [place] [address] Jul, [facility] [address] [id number] [address] [place] [address], [place] [address] Jul, [facility] [address] [id number] [address] [place] [address], [place] [address] Jul, [facility] [address] [id number] [address] [place] [address], [place] [address] Jul, [facility] [address] [id number] [address] [place] [address], [place] [address] Jul, [facility] [address] [id number] [address] [place] [address], [place] [address] Jun, [facility] [address] [id number] [address] [place] [address], [place] [address] Jun, [facility] [address] [id number] [address] [place] [address], [place] [address] Jun, [facility] [address] [id number] [address] [place] [address], [place] [address] Jun, [facility] [address] [id number] [address] [place] [address], [place] [address] Jun, [facility] [address] [id number] [address] [place] [address], [place] [address] Jun, [facility] [address] [id number] [address] [place] [address], [place] [address] Jun, [facility] [address] [id number] [address] [place] [address], [place] [address] Jun, [facility] [address] [id number] [address] [place] [address], [place] [address] Jun, [facility] [address] [id number] [address] [place] [address], [place] [address] Jun, [facility] [address] [id number] [address] [place] [address], [place] [address] Jun, [facility] [address] [id number] [address] [place] [address], [place] [address] Jun, [facility] [address] [id number] [address] [place] [address], [place] [address] Jun, [facility] [address] [id number] [address] [place] [address], [place] [address] Jun, [facility] [address] [id number] [address] [place] [address], [place] [address] May, [facility] [address] [id number] [address] [place] [address], [place] [address] May, [facility] [address] [id number] [address] [place] [address], [place] [address] May, [facility] [address] [id number] [address] [place] [address], [place] [address] May, [facility] [address] [id number] [address] [place] [address], [place] [address] May, [facility] [address] [id number] [address] [place] [address], [place] [address] May, [facility] [address] [id number] [address] [place] [address], [place] [address] May, [facility] [address] [id number] [address] [place] [address], [place] [address] 07 May, 2014 [facility] [address] [id number] [address] [place] [address], [place] [address] May, [facility] [address] [id number] [address] [place] [address], [place] [address] May, [facility] [address] [id number] [address] [place] [address], [place] [address] Mar, [facility] [address] [id number] [address] [place] [address], [place] [address] Mar, [facility] [address] [id number] [address] [place] [address], [place] [address] Jan, [facility] [address] [id number] [address] [place] [address], [place] [address] Jan, [facility] [address] [id number] [address] [place] [address], [place] [address] Jan, [facility] [address] [id number] [address] [place] [address], [place] [address] Jan, [facility] [address] [id number] [address] [place] [address], [place] [address] Jan, [facility] [address] [id number] [address] [place] [address], [place] [address] Jan, [facility] [address] [id number] [address] [place] [address], [place] [address] November, [facility] [address] [id number] [address] [place] [address], [place] [address] November, [facility] [address] [id number] [address] [place] [address], [place] [address] November, [facility] [address] [id number] [address] [place] [address], [place] [address] November, [facility] [address] [id number] [address] [place] [address], [place] [address] Oct, [facility] [address] [id number] [address] [place] [address], [place] [address] Oct, [facility] [address] [id number] [address] [place] [address], [place] [address] Oct, [facility] [address] [id number] [address] [place] [address], [place] [address] Oct, [facility] [address] [id number] [address] [place] [address], [place] [address] Sep, [facility] [address] [id number] [address] [place] [address], [place] [address] Sep, [facility] [address] [id number] [address] [place] [address], [place] [address] Sep, [facility] [address] [id number] [address] [place] [address], [place] [address] Sep, [facility] [address] [id number] [address] [place] [address], [place] [address] Aug, [facility] [address] [id number] [address] [place] [address], [place] [address] Aug, [facility] [address] [id number] [address] [place] [address], [place] [address] Aug, [facility] [address] [id number] [address] [place] [address], [place] [address] Aug, [facility] [address] [id number] [address] [place] [address], [place] [address] Aug, [facility] [address] [id number] [address] [place] [address], [place] [address] Aug, [facility] [address] [id number] [address] [place] [address], [place] [address] Jul, [facility] [address] [id number] [address] [place] [address], [place] [address] Jul, [facility] [address] [id number] [address] [place] [address], [place] [address] Jul, [facility] [address] [id number] [address] [place] [address], [place] [address] Jul, [facility] [address] [id number] [address] [place] [address], [place] [address] Jun, [facility] [address] [id number] [address] [place] [address], [place] [address] Jun, [facility] [address] [id number] [address] [place] [address], [place] [address] Jun, [facility] [address] [id number] [address] [place] [address], [place] [address] Jun, [facility] [address] [id number] [address] [place] [address], [place] [address] Jun, [facility] [address] [id number] [address] [place] [address], [place] [address] May, [facility] [address] [id number] [address] [place] [address], [place] [address] May, [facility] [address] [id number] [address] [place] [address] May, [facility] [address] [id number] [address] [place] [address], [place] [address] 19 May, 2013 [facility] [address] [id number] [address] [place] [address] 18 May, 2013 [facility] [address] [id number] [address] [place] [address] 18 May, 2013 [facility] [address] [id number] [address] [place] [address] 14 May, 2013 [facility] [address] [id number] [address] [place] [address] 12 May, 2013 [facility] [address] [id number] [address] [place] [address] 11 May, 2013 [facility] [address] [id number] [address] [place] [address] 10 May, 2013 [facility] [address] [id number] [address] [place] [address] 10 May, 2013 [facility] [address] [id number] [address] [place] [address], [place] [address] 27 Apr, 2013 [facility] [address] [id number] [address] [place] [address], [place] [address] 19 Apr, 2013 [facility] [address] [id number] [address] [place] [address], [place] [address] 18 Jan, 2013 [facility] [address] [id number] [address] [place] [address], [place] [address] 16 Jan, 2013 [facility] [address] [id number] [address] [place] [address], [place] [address] 14 Dec, 2012 [facility] [address] [id number] [address] [place] [address], [place] [address] Dec, [facility] [address] [id number] [address] [place] [address], [place] [address] November, [facility] [address] [id number] [address] [place] [address], [place] [address] November, [facility] [address] [id number] [address] [place] [address], [place] [address] November, [facility] [address] [id number] [address] [place] [address], [place] [address] November, [facility] [address] [id number] [address] [place] [address], [place] [address] 24 Oct, 2012 [facility] [address] [id number] [address] [place] [address], [place] [address] 14 Sep, 2012 [facility] [address] [id number] [address] [place] [address], [place] [address] 13 Sep, 2012 [facility] [address] [id number] [address] [place] [address], [place] [address] 15 Sep, 2012 [facility] [address] [id number] [address] [place] [address], [place] [address] 14 Sep, 2012 [facility] [address] [id number] [address] [place] [address], [place] [address] 08 Sep, 2012 [facility] [address] [id number] [address] [place] [address], [place] [address] Sep, [facility] [address] [id number] [address] [place] [address], [place] [address] Aug, [facility] [address] [id number] [address] [place] [address], [place] [address] Aug, [facility] [address] [id number] [address] [place] [address], [place] [address] Jul, [facility] [address] [id number] [address] [place] [address], [place] [address] Jul, [facility] [address] [id number] [address] [place] [address], [place] [address] Jun, [facility] [address] [id number] [address] [place] [address], [place] [id number] Jun, [facility] [address] [id number] [address] [place] [address], [place] [id number] Jun, [facility] [address] [id number] [address] [place] [address], [place] [id number] May, [facility] [address] [id number] [address] [place] [address], [place] [id number] 31 May, 2012 [facility] [address] [id number] [address] [place] [address], [place] [id number] 24 May, 2012 [facility] [address] [id number] [address] [place] [address], [place] [id number] 24 May, 2012 [facility] [address] [id number] [address] [place] [address], [place] [id number] 27 Apr, 2012 [facility] [address] [id number] [address] [place] [address], [place] [id number] 15 Apr, 2012 [facility] [address] [id number] [address] [place] [id number] Sep, [facility] [address] [facility] [id number] [address] [place] [id number] Mar, [facility] [address] [facility] [id number] [address] [place] [id number] Jan, [facility] [address] [facility] [id number] [address] [place] [phone] Oct, [facility] [address] [facility] [id number] [address] [place] [phone] May, IMMUNIZATIONS No Known Immunizations SOCIAL HISTORY Never Assessed REASON FOR VISIT PLAN OF CARE VITAL SIGNS Height 62 in 2013-04-20 Weight 127 lbs 2013-04-20 Temperature 98.2 degrees Fahrenheit 2013-04-20 Heart Rate 67 bpm 2013-04-20 Respiratory Rate 18 2013-04-20 Blood pressure systolic 116 mmHg 2013-04-20 Blood pressure diastolic 65 mmHg 2013-04-20 MEDICATIONS Unknown Medications RESULTS No Results PROCEDURES Procedure Date Ordered Result Body Site HETEROPHILE ANTIBODIES Apr 20, 2013 URINE TEST Apr 20, 2013 INSTRUCTIONS MEDICATIONS ADMINISTERED No Known Medications MEDICAL (GENERAL) HISTORY Type Description Date Medical History asthma Medical History kidney stones Medical History HSV 1 [employer] Surgical History thumb broken age 11 Surgical History kidney stone removed 03/18/2016 Hospitalization History kidney stones/ dehydration/ UTI Dece mber 2013 Hospitalization History ER visit for knee injury March 2018
--- OUTSIDE RECORDS SUMMARY | 2020-01-11 22:59 | XMS REPORT ---
Author Author Cedric ABDULLAHI Organization [facility] Address [address] [place] [address] Care Team Providers Care Disintegrator Feeder Name Role Phone SHUN ABDULLAHI Unavailable PROBLEMS Type Condition ICD9-CM Code SRJ56-UD Code Onset Dates Condition S tatus SNOMED Code Problem Other chronic pain G89.29 Active 8 3623577 Problem Seasonal allergies J30.2 Active 4 25715945 Problem Asthma, exercise induced J45.990 Activ e 64665801 Problem Recurrent kidney stones N20.0 Active [id number] ALLERGIES No Information ENCOUNTERS Encounter Location Date Diagnosis [facility] [address] [facility] [id number] [address] [place] [address] Sep, [facility] [address] [facility] [id number] [address] [place] [address] Aug, Fever R50.9 and Flu-like sym ptoms R68.89 [facility] [address] [facility] [id number] [address] [place] [address] Jul, care in first trime ster Z34.91 [facility] [address] [facility] [id number] [address] [place] [address] Jul, [facility] [address] [place] [id number] [address] [place] [address] Jul, Currently in first trimester with unknown gestational age Z34.91 and care in first trimester Z34.91 [facility] [address] [facility] [id number] [address] [place] [address] Jul, care in first trime ster Z34.91 [facility] [address] [facility] [id number] [address] [place] [address] Jul, Currently in first trimester with unknown gestational age Z34.91 and care, first in first trimester Z34.01 [facility] [address] [place] [id number] [address] [place] [address] May, [facility] [address] [address] Apr, Sprain of left knee, unspeci fied ligament, initial encounter S83.92XA [place] [address] [address] Mar, [facility] [address] [address] Mar, [place] [address] [address] Mar, Injury of left knee, initial encounter S89.92XA and Acute pain of left knee M25.562 [facility] [address] [address] Dec, Seasonal allergies J30.2 ; C ough R05 and Gagging episode R19.8 [place] [address] [address] November, Sore throat J02.9 ; Otalgia, bilateral H92.03 and Allergic rhinitis, unspecified seasonality, unspecified trigger J30.9 [place] [address] [address] Oct, [place] [address] [address] Jun, Encounter for Depo-Provera c ontraception Z30.42 [place] [address] [address] Mar, Encounter for Depo-Provera c ontraception Z30.42 [place] [address] [place] [id number] [address] [place] [address] 05 Marlo, 2017 test negative Z32. 02 [place] [id number] [facility] [id number] [address] [place] [address] 15 Dec, 2016 Surveillance for contr ol, oral contraceptives Z30.41 and Encounter for Depo-Provera contraception Z30.42 [place] [address] [facility] [id number] [address] [place] [address] November, Well woman exam without gyne cological exam Z00.00 [place] [address] [facility] [id number] [address] [place] [address] 23 Sep, 2016 Pharyngitis due to other org anism J02.8 [place] [address] [facility] [id number] [address] [place] [address] Aug, [place] [address] [facility] [id number] [address] [place] [address] Aug, [place] [address] [place] [id number] [address] [place] [address] Aug, Vaginal candidiasis B37.3 [place] [address] [place] [id number] [address] [place] [address] Aug, Vaginal candidiasis B37.3 [place] [address] [place] [id number] [address] [place] [address] 14 Apr, 2016 Visit for TB skin test Z11.1 [place] [address] [place] [id number] [address] [place] [address] Mar, Visit for TB skin test Z11.1 and Screening for tuberculosis Z11.1 [place] [address] [place] [id number] [address] [place] [address] Mar, Routine health maintenance Z 00.00 and Recurrent kidney stones N20.0 [place] [address] [facility] [id number] [address] [place] [id number] 05 Mar, 2016 Ingrown right greater toenai l L60.0 and Acute non-recurrent frontal sinusitis J01.10 [place] [address] [place] [id number] [address] [place] [address] Mar, Ingrowing right great toenai l L60.0 and Recurrent kidney stones N20.0 [place] [address] [place] [id number] [address] [place] [address] Dec, Well woman exam without gyne cological exam Z00.00 and Encounter for surveillance of contraceptive pills Z30.41 [place] [address] [address] Oct, Surveillance for contr ol, oral contraceptives Z30.41 and Sore throat J02.9 [place] [address] [address] Sep, Renal calculi N20.0 [place] [address] [place] [id number] [address] [place] [address] 18 Aug, 2015 Surveillance of contraceptiv e injection Z30.42 ; Encounter for Depo-Provera contraception Z30.42 and Encounter for counseling regarding contraception Z30.9 [place] [address] [place] [address] Aug, Asthma, exercise induced J45 .990 [place] [address] [place] [address] May, [facility] [id number] [place] [id number] Mar, Sports physical V70.3 ; Exer cise counseling V65.41 ; Dietary counseling V65.3 and Asthma 493.90 [place] [address] [place] [id number] [address] [place] [address] Mar, Encounter for contraceptive management V25.9 [place] [address] [place] [address] Jan, Routine child health exam V2 0.2 ; GARDASIL (HPV) DX V04.89 ; MENINGOCOCCAL DX V03.89 ; Dietary counseling and surveillance V65.3 ; Exercise counseling V65.41 and Recurrent nephrolithiasis 592.0 [facility] [address] [id number] [address] [place] [address] 17 Jan, 2015 Kidney stone 592.0 [facility] [address] [id number] [address] [place] [address] 08 Jan, 2015 Herpes simplex without menti on of complication 054.9 [facility] [address] [id number] [address] [place] [address] 07 Dec, 2014 [facility] [address] [id number] [address] [place] [address] November, Encounter for contraceptive management V25.9 [facility] [address] [id number] [address] [place] [address] 14 Oct, 2014 [facility] [address] [id number] [address] [place] [address] Oct, [facility] [address] [id number] [address] [place] [address] Sep, [facility] [address] [id number] [address] [place] [address] Sep, [facility] [address] [id number] [address] [place] [address] Sep, [facility] [address] [id number] [address] [place] [address] Sep, [facility] [address] [id number] [address] [place] [address] Aug, [facility] [address] [id number] [address] [place] [address] Aug, [facility] [address] [id number] [address] [place] [address] Aug, [facility] [address] [id number] [address] [place] [address] Aug, [facility] [address] [id number] [address] [place] [address], [place] [address] 16 Jul, 2014 [facility] [address] [id number] [address] [place] [address], [place] [address] 16 Jul, 2014 [facility] [address] [id number] [address] [place] [address], [place] [address] Jul, [facility] [address] [id number] [address] [place] [address], [place] [address] Jul, [facility] [address] [id number] [address] [place] [address], [place] [address] Jul, [facility] [address] [id number] [address] [place] [address], [place] [address] Jul, [facility] [address] [id number] [address] [place] [address], [place] [address] Jul, [facility] [address] [id number] [address] [place] [address], [place] [address] Jul, [facility] [address] [id number] [address] [place] [address], [place] [address] Jul, [facility] [address] [id number] [address] [place] [address], [place] [address] Jun, [facility] [address] [id number] [address] [place] [address], [place] [address] Jun, [facility] [address] [id number] [address] [place] [address], [place] [address] Jun, [facility] [address] [id number] [address] [place] [address], [place] [address] Jun, [facility] [address] [id number] [address] [place] [address], [place] [address] Jun, [facility] [address] [id number] [address] [place] [address], [place] [address] Jun, [facility] [address] [id number] [address] [place] [address], [place] [address] Jun, [facility] [address] [id number] [address] [place] [address], [place] [address] Jun, [facility] [address] [id number] [address] [place] [address], [place] [address] Jun, [facility] [address] [id number] [address] [place] [address], [place] [address] Jun, [facility] [address] [id number] [address] [place] [address], [place] [address] Jun, [facility] [address] [id number] [address] [place] [address], [place] [address] Jun, [facility] [address] [id number] [address] [place] [address], [place] [address] Jun, [facility] [address] [id number] [address] [place] [address], [place] [address] Jun, [facility] [address] [id number] [address] [place] [address], [place] [address] May, [facility] [address] [id number] [address] [place] [address], [place] [address] May, [facility] [address] [id number] [address] [place] [address], [place] [address] May, [facility] [address] [id number] [address] [place] [address], [place] [address] May, [facility] [address] [id number] [address] [place] [address], [place] [address] May, [facility] [address] [id number] [address] [place] [address], [place] [address] May, [facility] [address] [id number] [address] [place] [address], [place] [address] May, [facility] [address] [id number] [address] [place] [address], [place] [address] 07 May, 2014 [facility] [address] [id number] [address] [place] [address], [place] [address] May, [facility] [address] [id number] [address] [place] [address], [place] [address] May, [facility] [address] [id number] [address] [place] [address], [place] [address] Mar, [facility] [address] [id number] [address] [place] [address], [place] [address] Mar, [facility] [address] [id number] [address] [place] [address], [place] [address] Jan, [facility] [address] [id number] [address] [place] [address], [place] [address] Jan, [facility] [address] [id number] [address] [place] [address], [place] [address] Jan, [facility] [address] [id number] [address] [place] [address], [place] [address] Jan, [facility] [address] [id number] [address] [place] [address], [place] [address] Jan, [facility] [address] [id number] [address] [place] [address], [place] [address] Jan, [facility] [address] [id number] [address] [place] [address], [place] [address] November, [facility] [address] [id number] [address] [place] [address], [place] [address] November, [facility] [address] [id number] [address] [place] [address], [place] [address] November, [facility] [address] [id number] [address] [place] [address], [place] [address] November, [facility] [address] [id number] [address] [place] [address], [place] [address] Oct, [facility] [address] [id number] [address] [place] [address], [place] [address] Oct, [facility] [address] [id number] [address] [place] [address], [place] [address] Oct, [facility] [address] [id number] [address] [place] [address], [place] [address] Oct, [facility] [address] [id number] [address] [place] [address], [place] [address] Sep, [facility] [address] [id number] [address] [place] [address], [place] [address] Sep, [facility] [address] [id number] [address] [place] [address], [place] [address] Sep, [facility] [address] [id number] [address] [place] [address], [place] [address] Sep, [facility] [address] [id number] [address] [place] [address], [place] [address] Aug, [facility] [address] [id number] [address] [place] [address], [place] [address] Aug, [facility] [address] [id number] [address] [place] [address], [place] [address] Aug, [facility] [address] [id number] [address] [place] [address], [place] [address] Aug, [facility] [address] [id number] [address] [place] [address], [place] [address] Aug, [facility] [address] [id number] [address] [place] [address], [place] [address] Aug, [facility] [address] [id number] [address] [place] [address], [place] [address] Jul, [facility] [address] [id number] [address] [place] [address], [place] [address] Jul, [facility] [address] [id number] [address] [place] [address], [place] [address] Jul, [facility] [address] [id number] [address] [place] [address], [place] [address] Jul, [facility] [address] [id number] [address] [place] [address], [place] [address] Jun, [facility] [address] [id number] [address] [place] [address], [place] [address] Jun, [facility] [address] [id number] [address] [place] [address], [place] [address] Jun, [facility] [address] [id number] [address] [place] [address], [place] [address] Jun, [facility] [address] [id number] [address] [place] [address], [place] [address] Jun, [facility] [address] [id number] [address] [place] [address], [place] [address] May, [facility] [address] [id number] [address] [place] [address], [place] [address] May, [facility] [address] [id number] [address] [place] [address] May, [facility] [address] [id number] [address] [place] [address], [place] [address] 19 May, 2013 [facility] [address] [id number] [address] [place] [id number] 18 May, 2013 [facility] [address] [id number] [address] [place] [address] 18 May, 2013 [facility] [address] [id number] [address] [place] [address] 14 May, 2013 [facility] [address] [id number] [address] [place] [address] 12 May, 2013 [facility] [address] [id number] [address] [place] [id number] 11 May, 2013 [facility] [address] [id number] [address] [place] [address] 10 May, 2013 [facility] [address] [id number] [address] [place] [address] 10 May, 2013 [facility] [address] [id number] [address] [place] [address], [place] [address] 27 Apr, 2013 [facility] [address] [id number] [address] [place] [address], [place] [address] 19 Apr, 2013 [facility] [address] [id number] [address] [place] [address], [place] [address] 18 Jan, 2013 [facility] [address] [id number] [address] [place] [address], [place] [address] 16 Jan, 2013 [facility] [address] [id number] [address] [place] [address], [place] [address] 14 Dec, 2012 [facility] [address] [id number] [address] [place] [address], [place] [address] Dec, [facility] [address] [id number] [address] [place] [address], [place] [address] November, [facility] [address] [id number] [address] [place] [address], [place] [address] November, [facility] [address] [id number] [address] [place] [address], [place] [address] November, [facility] [address] [id number] [address] [place] [address], [place] [address] November, [facility] [address] [id number] [address] [place] [address], [place] [address] 24 Oct, 2012 [facility] [address] [id number] [address] [place] [address], [place] [address] 14 Sep, 2012 [facility] [address] [id number] [address] [place] [address], [place] [address] 13 Sep, 2012 [facility] [address] [id number] [address] [place] [address], [place] [address] 15 Sep, 2012 [facility] [address] [id number] [address] [place] [address], [place] [address] 14 Sep, 2012 [facility] [address] [id number] [address] [place] [address], [place] [address] 08 Sep, 2012 [facility] [address] [id number] [address] [place] [address], [place] [address] Sep, [facility] [address] [id number] [address] [place] [address], [place] [address] Aug, [facility] [address] [id number] [address] [place] [address], [place] [address] Aug, [facility] [address] [id number] [address] [place] [address], [place] [address] Jul, [facility] [address] [id number] [address] [place] [address], [place] [address] Jul, [facility] [address] [id number] [address] [place] [address], [place] [id number] Jun, [facility] [address] [id number] [address] [place] [address], [place] [id number] Jun, [facility] [address] [id number] [address] [place] [address], [place] [id number] Jun, [facility] [address] [id number] [address] [place] [address], [place] [id number] May, [facility] [address] [id number] [address] [place] [address], [place] [id number] 31 May, 2012 [facility] [address] [id number] [address] [place] [address], [place] [id number] 24 May, 2012 [facility] [address] [id number] [address] [place] [address], [place] [id number] 24 May, 2012 [facility] [address] [id number] [address] [place] [address], [place] [id number] 27 Apr, 2012 [facility] [address] [id number] [address] [place] [address], [place] [id number] 15 Apr, 2012 [facility] [address] [id number] [address] [place] [id number] Sep, [facility] [address] [facility] [id number] [address] [place] [id number] Mar, [facility] [address] [facility] [id number] [address] [place] [id number] Jan, [facility] [address] [facility] [id number] [address] [place] [phone] Oct, [facility] [address] [facility] [id number] [address] [place] [phone] May, IMMUNIZATIONS Vaccine Route Administration Date Status influenza IIV3 (history) Unknown Jul 24, 2013 Adminis tered SOCIAL HISTORY Never Assessed REASON FOR VISIT PLAN OF CARE VITAL SIGNS Height 62 in 2013-07-24 Weight 140.6 lbs 2013-07-24 Temperature 98.2 degrees Fahrenheit 2013-07-24 Heart Rate 86 bpm 2013-07-24 Respiratory Rate 16 2013-07-24 Blood pressure systolic 110 mmHg 2013-07-24 Blood pressure diastolic 72 mmHg 2013-07-24 MEDICATIONS Unknown Medications RESULTS No Results PROCEDURES Procedure Date Ordered Result Body Site INFLUENZA ASSAY W/OPTIC Jul 24, 2013 INSTRUCTIONS MEDICATIONS ADMINISTERED No Known Medications MEDICAL (GENERAL) HISTORY Type Description Date Medical History asthma Medical History kidney stones Medical History HSV 1 [employer] Surgical History thumb broken age 11 Surgical History kidney stone removed 03/18/2016 Hospitalization History kidney stones/ dehydration/ UTI Dece mber 2013 Hospitalization History ER visit for knee injury March 2018
--- OUTSIDE RECORDS SUMMARY | 2020-01-11 22:59 | XMS REPORT ---
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 01-11-2020 PENDING L OCATION 15:48-0400 [facility] (04254) Platelet mean 8.7 (NEG) 01-11-2020 PENDING LOCA TION volume (Bld) 16:00-0400 [facility] (39702) [Entitic vol] Platelets (Bld) 369 10*3/uL (NEG) 150 - 450 01-11-2020 PEND ING LOCATION [#/Vol] 10*3/uL 16:00-0400 [facility] (95173) Potassium 3.7 mmol/L (NEG) 3.7 - 5.2 mmol/L 01-11-2020 PEND ING LOCATION [Moles/Vol] 16:00-0400 [facility] (45683) Protein 7.4 g/dL (NEG) 6.4 - 8.3 g/dL 01-11-2020 PENDING LOCATION [Mass/Vol] 16:00-0400 [facility] (57230) Protein Ql (U) Negative (no code) 01-11-2020 PENDING LOC ATION 15:48-0400 [facility] (78329) RBC (Bld) 4.44 10*6/uL (NEG) 4.2 - 6.1 01-11-2020 PENDING L OCATION [#/Vol] 10*6/uL 16:00-0400 [facility] (66676) RBC LM.HPF > (A) 01-11-2020 PENDING LOCATI ON (Urine sed) 15:48-0400 [facility] (25954) [#/Area] RBC Ql (U) 3+ (A) 01-11-2020 PENDING LOCATI ON 15:48-0400 [facility] (05734) Sodium 140 mmol/L (NEG) 135 - 145 mmol/L 01-11-2020 PEND ING LOCATION [Moles/Vol] 16:00-0400 [facility] (38125) Specific gravity >= (no code) 01-11-2020 PENDING L OCATION (U) [Rel 15:48-0400 [facility] (82050) density] Urea nitrogen 13 mg/dL (NEG) 7 - 20 mg/dL 01-11-2020 PENDI NG LOCATION [Mass/Vol] 16:00-0400 [facility] (03264) Urea 16 mg/mg (no code) 6 - 22 mg/mg 01-11-2020 PENDING L OCATION nitrogen/Creatin 16:00-0400 [facility] (92016) ine [Mass ratio] Urinalysis NO (no code) 01-11-2020 PENDING LOCATI ON complete W 15:48-0400 [facility] (33346) Reflex Culture panel - Urine Urobilinogen (U) 0.2 mg/dL (no code) 01-11-2020 PENDING L OCATION [Mass/Vol] 15:48-0400 [facility] (68292) WBC (Bld) 7.6 10*3/uL (NEG) 3.5 - 10.5 01-11-2020 PENDING L OCATION [#/Vol] 10*3/uL 16:00-0400 [facility] (94278) WBC LM.HPF NONE (no code) 01-11-2020 PENDING LOCATI ON (Urine sed) 15:48-0400 [facility] (00301) [#/Area] not yet categorized on 2019-08-30 Control Negative (no code) [facility] (81048) Exp date 2021-05-10 (no code) [facility] (04543) Lot # [id number] (no code) [facility] (03092) laboratory on 2019-07-20 ABO group Nom A (no code) [facility] (Bld) [facility] (71906) Basophils (Bld) 0.048 10*3/uL (N) 0 - 0.3 10*3/uL [facility] [#/Vol] [facility] (72170) Basophils/100 0.7 % (N) 0.5 - 1 % [facility] WBC (Bld) [facility] (41323) Blood group NO ANTIBODIES (N) [facility] antibody screen DETECTED [facility] (11588) Eosinophils 0.129 10*3/uL (N) 0.05 - 0.5 [facility] (Bld) [#/Vol] 10*3/uL [facility] (94438) Eosinophils/100 1.9 % (N) 1 - 4 % [facility] WBC (Bld) [facility] (10677) Erythrocyte 11.5 % (N) 11.6 - 14.6 % [facility] ealth distribution [facility] (RBC) [facility] [Ratio] (21441) Hematocrit (Bld) 39.2 % (N) 36.1 - 50.3 % [facility] [Volume [facility]] [facility] (72466) Hemoglobin (Bld) 12.7 g/dL (N) 12.1 - 17.2 g/dL [facility] m[facility] Health [Mass/Vol] [facility] (48641) Lymphocytes 2.176 10*3/uL (N) 0.9 - 2.9 [facility] (Bld) [#/Vol] 10*3/uL Center [facility] (97530) Lymphocytes/100 32.0 % (N) 20 - 40 % [facility] WBC (Bld) [facility] (79488) MCH (RBC) 27.3 pg (N) 27 - 31 pg [facility] [Entitic mass] [facility] (39017) MCHC (RBC) 32.4 g/dL (N) 32 - 36 g/dL [facility] [Mass/Vol] [facility] (68458) MCV (RBC) 84.3 fL (N) 80 - 100 fL [facility] He[facility] lth [Entitic vol] [facility] (91550) Monocytes (Bld) 0.653 10*3/uL (N) 0.3 - 0.9 [facility] [#/Vol] 10*3/uL [facility] (36338) Monocytes/100 9.6 % (N) 2 - 8 % [facility] WBC (Bld) [facility] (30264) Neutrophils 3.794 10*3/uL (N) 1.7 - 7 10*3/uL [facility] (Bld) [#/Vol] [facility] (76094) Neutrophils/100 55.8 % (N) 40 - 60 % [facility] WBC (Bld) [facility] (93225) Platelet mean 9.5 fL (N) 7.2 - 11.7 fL [facility] volume (Bld) [facility] [Entitic vol] [facility] (96556) Platelets (Bld) 419 10*3/uL (H) 150 - 450 [facility] [#/Vol] 10*3/uL [facility] (59111) RBC (Bld) 4.65 10*6/uL (N) 4.2 - 6.1 [facility] [#/Vol] 10*6/uL [facility] (77455) Rh Nom (Bld) Positive (no code) [facility] (35645) Rubella virus 1.50 (N) [facility] IgG Qn (S) [facility] (78242) TSH Qn 1.72 m[IU]/L (N) 0.4 - 4 m[IU]/L [facility] (32708) WBC (Bld) 6.8 10*3/uL (N) 3.5 - 10.5 [facility] [#/Vol] 10*3/uL [facility] (04826) not yet categorized on 2019-07-13 BLO trace-lysed (no code) [facility] (98471) CLINICAL no information (N) [facility] INFORMATION: [facility] (68930) COMMENT no information (no code) [facility] (61339) Date of previous no information (N) [facility] biopsy [facility] (66258) Date of previous no information (N) [facility] PAP smear [facility] (35499) Exp date +~3-21 (no code) [facility] (75548) GC Neg~Neg (no code) [facility] (94683) KET 22-08-30~cloudy~ (no code) [facility] dark [facility]~none~nega [facility] tive~negative~ne (27366) gative Last menstrual no information (N) [facility] period start [facility] (31281) ERNIE Negative (no code) [facility] (30511) Lot # [id number] (no code) [facility] (04682) Lot # [id number] (no code) [facility] (02322) Lot # [id number] (no code) [facility] (78124) RESULTS Positive (no code) [facility] (97230) SG 1.020 (no code) [facility] (04703) TCA 12-20~+~negative (no code) [facility] ~negative~negati [facility] ve~Positive~nega [facility] itve~negative~ne (97162) gaitve~negative~ negative~negativ e~negaitve~negat [place]~negative URO 0.2 (no code) [facility] (36235) laboratory on 2019-07-13 Bacteria SEE NOTE (no code) [facility] identified Cx [facility] Nom (U) [facility] (63053) Evs Manager Cyto no information (N) [facility] stain [facility] (Cvx/Vag) [ID] [facility] (01682) Cytology study no information (N) [facility] comment Cyto [facility] stain [facility] (Cvx/Vag) (32231) [Interp] General no information (A) [facility] categories Cyto [facility] stain (Cvx/Vag) [facility] [Interp] (60774) Microscopic no information (A) [facility] observation Cyto [facility] stain [facility] (Cvx) [facility] (41112) Pathologist Cyto no information (N) [facility] lt stain [facility] (Cvx/Vag) [ID] [facility] (56060) pH (Bld) 7.0 [pH] (no code) 7.38 - 7.42 [pH] [facility] (23767) Protein (U) Negative (no code) 0 - 20 mg/dL [facility] He alth [Mass/Vol] [facility] (75805) Specimen source Cervix (N) [facility] Cyto stain [facility] (Cvx/Vag) [facility] (34864) Statement of no information (N) [facility] adequacy [facility] (Cvx/Vag) [facility] [Interp] (20652) Vital Signs Vital Sign Value Interpretation Reference Date Time Care Prov ider Facility (Normalized) (Normalized) Range BMI (Body Mass 33.55 kg/m2 (no code) 15 - 25 kg/m2 04-06-2018 Hernan JOHNS Community Index) 10:00-0400 98594 [facility] (79447) BMI (Body Mass 32.77 kg/m2 (no code) 15 - 25 kg/m2 03-28-2018 Michael LOPEZ Community Index) 10:20-0400 82137 [facility] (85665) BMI (Body Mass 29.23 kg/m2 (no code) 15 - 25 kg/m2 01-24-2018 N JAMES ELDRIDGE Community Index) 20:10-0400 [facility] [id number] [place] [address] (42606) Body height 158.75 cm (no code) cm 06-13-2014 [facility] 14:450500 66123 [facility] (30000) Body height 160.02 cm (no code) cm 12-20-2013 CATARINA [facility] 10:520400 05818 [facility] Center [facility] (08605) Body height 160.02 cm (no code) cm 10-31-2013 [facility] 10:080400 99468 [facility] (01407) Body height 157.48 cm (no code) cm 07-24-2013 SHUN Co mmunity 15: KAYLEN [facility] Center (Other Phone: of [facility] ) [place] (83380) Body height 157.48 cm (no code) cm 06-23-2013 [facility] 10:140500 82910 (Other Health Center Phone: of [facility] ) [place] (42575) Body height 157.48 cm (no code) cm 04-28-2013 LIZA AVELAR [facility] 11:370400 23572 (Other Health Center Phone: of [facility] ) [place] (68910) Body height 157.48 cm (no code) cm 04-20-2013 [facility] 12:51-0400 32315 (Other Health Center Phone: of [facility] ) [place] (06852) Body 98 [degF] (no code) 97.8 - 99.0 04-06-2018 BRO Agustin Community Temperature [degF] 10:00-0400 26764 Health Cent[facility] r of [facility] (73429) Body 97.8 [degF] (no code) 97.8 - 99.0 03-28-2018 ENRIQUE LI Community Temperature [degF] 10:20-0400 09700 Health Cent[facility] r of [facility] (34657) Body 99.1 [degF] (no code) 97.8 - 99.0 01-24-2018 NOEMI LOVE [facility] Temperature [degF] 20:10-0400 [facility] [address] [facility] [address] of [facility] (84861) Body 97.8 [degF] (no code) 97.8 - 99.0 09-13-2014 PALOMA ruizEMILIANO [facility] Temperature [degF] 08:06-0500 08679 Health Cent[facility] r of [facility] (52122) Body 97.9 [degF] (no code) 97.8 - 99.0 07-17-2014 [facility] Temperature [degF] 11:45-0500 25621 Health Cent[facility] r of [facility] (47161) Body 97 [degF] (no code) 97.8 - 99.0 06-26-2014 NORM Stewart [facility] Temperature [degF] 18:21-0500 [facility] [address] [facility] (91201) Body 97.4 [degF] (no code) 97.8 - 99.0 06-13-2014 [facility] temperature [degF] 14:45-0500 46169 Health Cente r [facility] (88978) Body 97.8 [degF] (no code) 97.8 - 99.0 05-08-2014 PILAR [facility] Temperature [degF] 14:30-0400 Zan [facility] 80181 [facility] (99082) Body 98 [degF] (no code) 97.8 - 99.0 12-20-2013 CATARINA COFFEY Community temperature [degF] 10:52-0400 18558 Health Cent[facility] r of [facility] (02334) Body 98.2 [degF] (no code) 97.8 - 99.0 10-31-2013 RONDA VILLA CARLIE Community temperature [degF] 10:080400 09150 Health Cent[facility] r of [facility] (46114) Body 98.2 [degF] (no code) 97.8 - 99.0 07-24-2013 SHUN Community temperature [degF] 15:010500 ABDULLAHI 00832 Health nter (Other Phone: of [facility] ) [place] (75628) Body 97.7 [degF] (no code) 97.8 - 99.0 06-23-2013 RONDA VILLA CARLIE [facility] temperature [degF] 10:140500 97056 (Other Health Cent er Phone: of [facility] ) [place] (41858) Body 98.3 [degF] (no code) 97.8 - 99.0 04-28-2013 LIZA Watson Community temperature [degF] 11:370400 86758 (Other Health Cent er Phone: of [facility] ) [place] (77767) Body 98.2 [degF] (no code) 97.8 - 99.0 04-20-2013 CATARINA Don Community temperature [degF] 12:510400 97805 (Other Health Cent er Phone: of [facility] ) [place] (33514) Body weight 65.04 kg (no code) kg 09-13-2014 PALOMA Zuñiga [facility] 08:060500 72155 [facility] (65850) Body weight 67.59 kg (no code) kg 07-17-2014 RONDA Greenberg [facility] 11:45-0500 04090 [facility] (67070) Body weight 68.4 kg (no code) kg 06-26-2014 NORM Com munity 18:210500 [facility] 75987 of [facility] (23720) Body weight 67.27 kg (no code) kg 06-13-2014 RONDA Greenberg [facility] 14:450500 33011 Health Center of [facility] (68385) Body weight 67.31 kg (no code) kg 05-08-2014 PILAR Com munity 14:300400 [facility] 80792 of [facility] (75164) Body weight 66.4 kg (no code) kg 12-20-2013 CATARINA COFFEY [facility] 10:52-0400 14861 Health Center of [facility] (47460) Body weight 63.5 kg (no code) kg 10-31-2013 RONDA Greenberg [facility] 10:080400 71293 Health Center of [facility] (27114) Body weight 63.78 kg (no code) kg 07-24-2013 SHUN Com munity 15:010500 [place] [address] Health Center (Other Phone: of [facility] ) [place] (85577) Body weight 59 kg (no code) kg 06-23-2013 RONDA Greenberg [facility] 10:143670 58346 (Other Health Center Phone: of [facility] ) [place] (39571) Body weight 56.88 kg (no code) kg 04-28-2013 LIZA KEVINShirley [facility] 11:370400 36443 (Other Health Center Phone: of [facility] ) [place] (30256) Body weight 57.61 kg (no code) kg 04-20-2013 CATARINA COFFEY Community 12:510400 36608 (Other Health Center Phone: of [facility] ) [place] (18081) Height 160.02 cm (no code) cm 04-06-2018 BRO JOHNS Community 10:00-0400 26642 Health Center [facility] (01374) Height 160.02 cm (no code) cm 03-28-2018 ENRIQUE LOPEZ Community 10:20-[address] [place] [address] (01850) Height 160.02 cm (no code) cm 01-24-2018 NOEMI ELDRIDGE [facility] 20:10-[address] (23860) Height 157.48 cm (no code) cm 09-13-2014 PALOMA Lamb [facility] 08:06-[address] [place] [address] (87120) Height 157.48 cm (no code) cm 07-17-2014 RONDA MCPHERSON [facility] 11:45-[address] [place] [address] (91258) Height 157.48 cm (no code) cm 06-26-2014 NORM Commu nity 18:21-[address] (57006) Height 157.48 cm (no code) cm 05-08-2014 PILAR Commu nity 14:300400 [address] (38907) Weight 85.91 kg (no code) kg 04-06-2018 BRO JOHNS Thierno ommunity 10:00-[address] [place] [address] (38817) Weight 83.92 kg (no code) kg 03-28-2018 ENRIQUE LOPEZ ommunity 10:20-[address] [place] [address] (11808) Weight 74.84 kg (no code) kg 01-24-2018 NOEMI ELDRIDGE ommunity 20:10-[address] (91504) Interventions No Information Plan of Treatment The data below is from unstructured sources Discharge Date 12/08/16 3:17pm Disposition 01 HOME, SELF-CARE Condition at Discharge Stable Instructions/Education Provided Toe Injury (DC) Prescriptions See Medication Section Referrals [facility] Order Date: Primary Care Physician Address: [address] [place], [place] [id number] Additional Instructions/Education Bu ddy toe fourth and fifth together with tape. Ice and elevate for 20 minutes every 2 hours. Wears her or different, firm soled shoes. Ibuprofen 600 mg every 8 hours. Use prescription pain medicine as needed for significant pain. Return to emergency department for increased symptoms or new problems. All discharge instructions reviewed with patient and/or family. Voiced understanding. Discharge Date 02/21/16 3:02pm Disposition 01 HOME, SELF-CARE Condition at Discharge Improved Instructions/Education Provided NO I NSTRUCTIONS GIVEN Prescriptions See Medication Section Referrals RONDA MCPHERSON MD [facility] Physician Additional Instructions/Education 1. Make an appointment to follow-up with [facility] 2. Return to ER for any fevers, intolera ble pain or other symptoms All discharge instructions reviewed with patient and/or family. Voiced understanding. Discharge Date 03/12/16 3:45pm Disposition 01 HOME, SELF-CARE Condition at Discharge Stable/Unchan ged Prescriptions See Medication Section Referrals [facility] - Primary Care Physician Additional Instructions/Education Al l discharge instructions reviewed with patient and/or family. Voiced understanding. Plenty of liquids Keep appointment with Dr. Rush for 03/16 Pain meds as directed Return if unrelieved pain, fever or chills Discharge Date 03/16/16 3:35pm Prescriptions See Medication Section Discharge Date 03/18/16 3:40pm Instructions/Education Provided ANEDionicio THESIA INSTRUCTIONS POSTOP Cystoscopy (DC) Ureteroscopic Kidney Stone Removal (DC) Prescriptions See Medication Section Prescriptions See Medication Section Discharge Date 10/21/15 11:03am Disposition 01 HOME, SELF-CARE Condition at Discharge Improved Instructions/Education Provided Neph rolithiasis (ED) Urinary Tract Infection in Women (ED) Prescriptions See Medication Section Referrals RONDA MCPHERSON MD [facility] Physician Additional Instructions/Education Dr marshall plenty of clear liquids. Complete the antibiotics as prescribed unless otherwise directed by your doctor. Follow-up with your urologist as soon as possible. Bring the disc of your images with you to that appointment. Contact Dr. Rush's office if you decide to seek follow-up care in [place]. Return to emergency room if symptoms worsen. You may take ibuprofen up to 600 mg every 6 hours as needed for pain. Add Tylenol up to 1000 mg every 6 hours as needed for additional pain relief. All discharge instructions reviewed with patient and/or family. Voiced understanding. Discharge Date 07/11/14 4:41pm Disposition 01 HOME, SELF-CARE Instructions/Education Provided Acut e Pyelonephritis (GEN) Forms Provided PDI Medical Prescriptions See Medications Sectio n Referrals (Unspecified) Reason(s) for Referral: Pyelonephritis, acute Renal stones Follow up with Dr. Mcpherson at [facility] on 07/17/14. RONDA MCPHERSON MD (Unspecified) 07/17/14 Address: [address] [place] [address], [place] [address] Reason(s) for Referral: FOLLOW UP APPOINTMENT 07/17/14 AT 11:45 AM Activity Details Follow Up prn Reason: Discharge Date 09/21/17 1:39pm Disposition 01 HOME, SELF-CARE Condition at Discharge Improved Instructions/Education Provided Kidn ey Stones (DC) Urinary Tract Infection, Adult (DC) Prescriptions See Medication Section Referrals [facility] Order Date: Primary Care Physician Address: [address] [address] Additional Instructions/Education In crease fluid intake. Drink 1 glass of cranberry juice or eat 1 cup of fresh blueberries twice daily. Use hydrocodone as needed for severe pain. May take ibuprofen 600 mg every 8 hours for pain. Take Antibiotic as prescribed. Follow-up with Dr. Rush will September 23. Come to outpatient admission at [facility] for xray at 1:00, then appt with Dr. Rush at 2:15. Return to emergency department for painful urination, either greater than 101 inability to urinate, new problems or concerns. All discharge instructions reviewed with patient and/or family. Voiced understanding. Discharge Date 09/27/17 12:44pm Prescriptions See Medication Section Activity Details Follow Up 3 Months Reason: Activity Details Follow Up 1 Week, prn Reason:if symp toms worsen or not improving Discharge Date 03/25/18 10:31pm Disposition 01 HOME, SELF-CARE Condition at Discharge Stable Instructions/Education Provided Knee Sprain (DC) Forms Provided Work Release Form Prescriptions See Medication Section Referrals MILTON WALSH DO Order Date: Primary Care Physician Address: [address] [place] [address] [id number] ENRIQUE LOPEZ DIRECTOR OF TRANSPORTATION Order Date: Primary Care Physician Address: [address] [place] [address] [id number] Additional Instructions/Education 1. Ice pack to area 2. Wear the Reid wrap to the knee on duri ng the day and off at night for the next 2-3 days. If you have persistent pain ne xt week follow-up with [facility] to discuss further evaluation which may include MRI. Activity Details Follow Up 4 Weeks Reason: Goals No Information Social History No Information Functional Status The data below is from unstructured sources Query Response Date Lobo rded Patient Orientation Person Place Time Situation July 11, 2014 4:51pm Mental Status No Information Encounters Encounter Normalized Encounter Encounter Diagnosis Care Provi sarah Organization Date Type 04-06-2018 (ACUTE) Acute Visit Sprain of unspecified BRO THOMPSON (no [facility] - site of left knee, phone) (no phone) 04-06-2018 initial encounter - 04-06-2018 03-28-2018 (ACUTE) Acute Visit Unspecified injury of ENRIQUE Thierno ZAMARRIPA (no [facility] - left lower leg, phone) ENRIQUE Denise (no ph one) 03-28-2018 initial encounter (no phone) - 03-28-2018 12-15-2017 (SD) Same Day Acute pharyngitis, RANDY SABILLON (no [facility] - unspecified phone) RANDY [place] (no phon e) 12-15-2017 (no phone) - 12-15-2017 01-24-2018 (WALK-IN) Walk-In Care Other seasonal NOEMI LOPEZ [facility] WALK IN - allergic rhinitis (no phone) NOEMI CARE (no p unique) 01-24-2018 ELZBIETA LOPEZ (no - phone) 01-24-2018 11-25-2017 [facility] no information ENRIQUE LOPEZ (no [facility] - phone) ENRIQUE Denise (no phone) 11-25-2017 (no phone) - 11-25-2017 04-27-2018 Discharged Recurring no information BRO JOHNS Work no organization name - 05-02-2018 01-11-2020 Emergency department no information LISA ARTIS DO (no [facility] - patient visit phone) POLLO RUIZ [facility] 01-11-2020 (no phone) (no phone) 02-16-2019 Emergency department no information no name no organization name - patient visit 02-16-2019 02-16-2019 Emergency department no information MICHAEL WEINER MD (no [facility] - patient visit phone) [facility] 02-16-2019 (no phone) 03-25-2018 Emergency department no information RIDGE Becerra APRN, BA JUSTINA no organization name - patient visit Work Phone: 03-25-2018 03-25-2018 Emergency department no information RIDGE EMERSON (no [facility] - patient visit phone) [facility] 03-25-2018 (no phone) 12-16-2017 Emergency department no information MICHAEL WEINER MD (no [facility] - patient visit phone) [facility] 12-17-2017 (no phone) 11-03-2017 Emergency department no information no name no organization name - patient visit 11-04-2017 11-03-2017 Emergency department no information BRETT CAVANAUGH [facility] - patient visit (no phone) [facility] 11-03-2017 (no phone) 12-08-2016 Emergency department no information POLLO SAM (no [facility] - patient visit phone) [facility] 12-08-2016 (no phone) 02-21-2016 Emergency department no information RIDGE EMERSON (no [facility] - patient visit phone) [facility] 02-21-2016 (no phone) 02-14-2015 Emergency department no information no name no organization name - patient visit 02-14-2015 02-14-2015 Emergency department no information WILTON NEWELL [facility] - patient visit (no phone) [facility] 02-14-2015 (no phone) 07-06-2014 Emergency department no information no name no organization name - patient visit 07-07-2014 02-04-2012 Emergency department no information no name no organization name - patient visit 02-04-2012 05-19-2018 Patient encounter no information no name no or ganization name - 05-25-2018 05-16-2018 Patient encounter no information no name no or ganization name 05-11-2018 Patient encounter no information no name no or ganization name 05-09-2018 Patient encounter no information no name no or ganization name 05-05-2018 Patient encounter no information no name no or ganization name 05-02-2018 Patient encounter no information no name no or ganization name 05-02-2018 Patient encounter no information no name no or ganization name 05-02-2018 Patient encounter no information no name no or ganization name 04-27-2018 Patient encounter no information no name no or ganization name - 05-01-2018 04-25-2018 Patient encounter no information no name no or ganization name NEGATED Patient encounter no information no name no or ganization name 04-21-2018 03-28-2018 Patient encounter no information no name no or ganization name 03-25-2018 Patient encounter no information no name no or ganization name 01-24-2018 Patient encounter no information no name no or ganization name 12-17-2017 Patient encounter no information no name no or ganization name 12-15-2017 Patient encounter no information no name no or ganization name 11-12-2017 Patient encounter no information no name no or ganization name 09-28-2017 Patient encounter no information no name no or ganization name 09-21-2017 Patient encounter no information no name no or ganization name 07-01-2016 Patient encounter no information AURORA RUSH MD ( no [facility] phone) [facility] (no phone) 04-05-2016 Patient encounter no information no name no or ganization name - 06-30-2016 03-18-2016 Patient encounter no information no name no or ganization name - 03-18-2016 11-11-2015 Patient encounter no information no name no or ganization name 05-11-2013 Patient encounter no information no name no or ganization name 06-16-2012 Patient encounter no information no name no or ganization name - 06-28-2012 08-30-2019 Patient encounter no information no name no or ganization name procedure 08-24-2019 Patient encounter no information no name no or ganization name - procedure 08-24-2019 08-22-2019 Patient encounter no information ISRAEL FLORES DO ( no [facility] procedure phone) [facility] (no phone) 07-20-2019 Patient encounter no information no name no or ganization name procedure 07-13-2019 Patient encounter no information no name no or ganization name procedure 02-16-2019 Patient encounter no information no name no or ganization name procedure 11-08-2018 Patient encounter no information AURORA RUSH MD ( no [facility] procedure phone) [facility] (no phone) 08-09-2018 Patient encounter no information no name no or ganization name - procedure 11-07-2018 08-09-2018 Patient encounter no information AURORA RUSH MD ( no [facility] - procedure phone) [facility] 11-06-2018 (no phone) 05-19-2018 Patient encounter no information BRO JOHNS MD (no [facility] - procedure phone) [facility] 05-25-2018 (no phone) 11-12-2017 Patient encounter no information AURORA RUSH MD ( no [facility] procedure phone) [facility] (no phone) 09-28-2017 Patient encounter no information AURORA RUSH MD ( no [facility] procedure phone) [facility] (no phone) 09-23-2017 Patient encounter no information AURORA RUSH MD ( no [facility] procedure phone) [facility] (no phone) 12-08-2016 Patient encounter no information no name no or ganization name procedure 04-05-2016 Patient encounter no information AURORA RUSH MD ( no [facility] - procedure phone) [facility] 06-29-2016 (no phone) 03-18-2016 Patient encounter no information AURORA RUSH MD ( no [facility] - procedure phone) [facility] 03-18-2016 (no phone) 03-16-2016 Patient encounter no information AURORA RUSH MD ( no [facility] - procedure phone) [facility] 03-16-2016 (no phone) 11-11-2015 Patient encounter no information AGNES MARTINEZ MD (n o [facility] procedure phone) [facility] (no phone) 05-19-2018 Telephone encounter no information BRO JOHNS (n o [facility] - phone) (no phone) 05-19-2018 - 05-19-2018 03-29-2018 Telephone encounter no information ENRIQUE LOPEZ (n o [facility] - phone) ENRIQUE Denise (no phone) 03-29-2018 (no phone) - 03-29-2018 03-28-2018 Telephone encounter no information ENRIQUE LOPEZ (n o [facility] - phone) ENRIQUE Denise (no phone) 03-28-2018 (no phone) - 03-28-2018 no information Encounter for other no name no organiz ation name preprocedural examination no information Routine or no name no organizat ion name child health check no information Encounter for general no name no organ ization name adult medical examination without abnormal findings no information Encounter for no name (no phone) preprocedural laboratory examination Medical Equipment No Information Payers No Information Advance Directives Directive Response Recor ded Date/Time Advance Directives No 1:47pm Health Care Power of Floor Sanding Machine Operator No 12/08/16 1:47pm Organ Donor Yes 12/08/16 1:47pm Resuscitation Status Full Code 12/08/16 1:47pm Directive Response Recor ded Date/Time Advance Directives No 2:37pm Health Care Power of Floor Sanding Machine Operator No 02/21/16 2:37pm Organ Donor Yes 02/21/16 2:37pm Resuscitation Status Full Code 02/21/16 2:37pm Directive Response Recor ded Date/Time Advance Directives No 2:37pm Health Care Power of Floor Sanding Machine Operator No 02/21/16 2:37pm Organ Donor Yes 02/21/16 2:37pm Directive Response Recor ded Date/Time Advance Directives No 3:11pm Health Care Power of Floor Sanding Machine Operator No 03/16/16 3:11pm Organ Donor Yes 03/16/16 3:11pm Resuscitation Status Full Code 03/16/16 3:11pm Directive Response Recor ded Date/Time Advance Directives No 11:10am Health Care Power of Floor Sanding Machine Operator No 03/18/16 11:10am Organ Donor Yes 03/18/16 11:10am Resuscitation Status Full Code 03/18/16 11:10am Directive Response Recor ded Date/Time Advance Directives No 11:10am Health Care Power of Floor Sanding Machine Operator No 03/18/16 11:10am Organ Donor Yes 03/18/16 11:10am Directive Response Recor ded Date/Time Advance Directives No 8:30am Health Care Power of Floor Sanding Machine Operator No 10/21/15 8:30am Organ Donor Yes 10/21/15 8:30am Resuscitation Status Full Code 10/21/15 8:30am Directive Response Recor ded Date/Time Advance Directives No 10:42am Health Care Power of Floor Sanding Machine Operator No 07/06/14 7:44pm Organ Donor Yes 07/06/14 7:44pm Resuscitation Status Full Code 07/10/14 10:42am Directive Response Recor ded Date/Time Advance Directives No 7:44pm Health Care Power of Floor Sanding Machine Operator No 07/06/14 7:44pm Organ Donor Yes 07/06/14 7:44pm Resuscitation Status Full Code 07/06/14 7:44pm Directive Response Recor ded Date/Time Advance Directives No 12:05pm Health Care Power of Floor Sanding Machine Operator No 09/21/17 12:05pm Organ Donor Yes 09/21/17 12:05pm Resuscitation Status Full Code 09/21/17 12:05pm Directive Response Recor ded Date/Time Advance Directives No 12:33pm Health Care Power of Floor Sanding Machine Operator No 09/27/17 12:33pm Organ Donor Yes 09/27/17 12:33pm Resuscitation Status Full Code 09/27/17 12:33pm Directive Response Recor ded Date/Time Advance Directives No 9:48pm Health Care Power of Floor Sanding Machine Operator No 03/25/18 9:48pm Organ Donor Yes 03/25/18 9:48pm Resuscitation Status Full Code 03/25/18 9:48pm Directive Response Recor ded Date/Time Advance Directives No 9:48pm Health Care Power of Floor Sanding Machine Operator No 03/25/18 9:48pm Organ Donor Yes 03/25/18 9:48pm Discharge Instructions No hospital discharge instruction information available.No hospital discharge instructions.No hospital discharge instructions.No hospital discharge instructions. Patient Instructions Physician Instructions New, Converted, or Re-newed RX: RX on Chart Plan Please make appointment to been seen in office in 2 weeks. Increase oral fluids for 48 hours and then as needed. Diet and Activity as tolerated. If questions or concerns contact your physician Or seek help at emergency department. No hospital discharge instructions.No hospital discharge instructions. Patient Instructions Physician Instructions New, Converted or Re-Newed RX: RX Given to Pt/Family Patient Instructions Take 1 capsule of omnicef twice daily for the next 10 days. She should drink at least 2L of water daily. Please follow up with Dr. Mcpherson on 07/17/14 for hospital follow up. [facility] to [facility] For: Inability to tolerate any fluids by mouth or respiratory distress. Discharge Diet: No Restrictions Activity as Tolerated: Yes No hospital discharge instructions.No hospital discharge instruction information available.No hospital discharge instruction information available.No hospital discharge instruction information available.No hospital discharge instruction information available. Summary Purpose [employer] SubmissioneClinicalWorks SubmissioneClinicalWorks SubmissioneClinicalWorks SubmissioneClinicalWorks SubmissioneClinicalWorks SubmissioneClinicalWorks SubmissioneClinicalWorks Submission Additional Source Comments This clinical document has been generated using [employer] software that has been certified by the Office of the National Coordinator for Health Information Technology (ONC 15.99.04.3023.Diam.[id number]) and the National Committee for Account Planner (NCQA, as an eMeasure certified technology). FOR RECORDS PERTAINING TO PATIENTS WHO ARE OR HAVE BEEN ENROLLED IN A CHEMICAL D EPENDENCY/SUBSTANCE ABUSE PROGRAM, SOME INFORMATION MAY BE OMITTED. This clinica l summary was aggregated from multiple sources. Caution should be exercised in using it in the provision of clinical care. This summary normalizes information from multiple sources, and as a consequence, information in this document may ma terially change the coding, format and clinical context of patient data. In eusebio tion, data may be omitted in some cases. CLINICAL DECISIONS SHOULD BE BASED ON T HE PRIMARY CLINICAL RECORDS. [employer] provides no warranty or guara ntee of the accuracy or completeness of information in this document.The followi ng information is based on time limited clinical information UNRECOGNIZED CONTENT PROVIDED BELOW FOR UNRECOGNIZED SECTION MEDICAL (GENERAL) HISTORY Type Description Date Medical History asthma Medical History kidney stones Surgical History thumb broken age 11 Surgical History kidney stone removed 03/18/2016 Hospitalization History kidney stone s/ dehydration/ UTI July 2014 Type Description Date Medical History asthma Medical History kidney stones Surgical History thumb broken age 11 Surgical History kidney stone removed 03/18/2016 Hospitalization History kidney stone s/ dehydration/ UTI July 2014 Hospitalization History ER visit for knee injury March 2018 Type Description Date Medical History asthma Medical History kidney stones Medical History HSV 1 [employer] Surgical History thumb broken age 11 Surgical History kidney stone removed 03/18/2016 Hospitalization History kidney stone s/ dehydration/ UTI July 2014 Hospitalization History ER visit for knee injury March 2018 UNRECOGNIZED CONTENT PROVIDED BELOW FOR UNRECOGNIZED SECTION REASON FOR VISIT N/V since last noc. started having a sore throat et congestion this am. carline rnRequests return callknee pain-Eddie, Pt states she went to ER Wednesday, they said if pain isn't better by today to come get a referral for MRI from PCP.Pain (acute)knee x2 weeks while chasing dog. Went to ER for eval, told patient if not better in a week to seek further guidance thad leon, MRI ordered on 03/25/18, still in review for prior authorization, ER records requestedRefill [id number]
--- OUTSIDE RECORDS SUMMARY | 2020-01-11 23:00 | XMS REPORT ---
Author Author Cedric Garcia Doctor Organization [facility] Address Unknown Phone Unavailable Care Team Providers Care Payroll Associate Name Role Phone Migration, Doctor Unavailable Unavailable PROBLEMS Type Condition ICD9-CM Code [id number] Code Onset Dates Condition S tatus SNOMED Code Problem Other chronic pain G89.29 Active 8 0315319 Problem Seasonal allergies J30.2 Active 4 24283892 Problem Asthma, exercise induced J45.990 Activ e 78847381 Problem Recurrent kidney stones N20.0 Active [id number] ALLERGIES No Information ENCOUNTERS Encounter Location Date Diagnosis [facility] [address] [facility] [id number] [address] [place] [address] Sep, [facility] [address] [facility] [id number] [address] [place] [address] Aug, Fever R50.9 and Flu-like sym ptoms R68.89 [facility] [address] [facility] [id number] [address] [place] [address] Jul, care in first trime ster Z34.91 [facility] [address] [facility] [id number] [address] [place] [address] Jul, [facility] [address] [facility] [id number] [address] [place] [address] Jul, Currently in first trimester with unknown gestational age Z34.91 and care in first trimester Z34.91 [facility] [address] [facility] [id number] [address] [place] [address] Jul, care in first trime ster Z34.91 [facility] [address] [facility] [id number] [address] [place] [address] Jul, Currently in first trimester with unknown gestational age Z34.91 and care, first in first trimester Z34.01 [facility] [address] [facility] [id number] [address] [place] [address] May, [facility] [address] [address] Apr, Sprain of left knee, unspeci fied ligament, initial encounter S83.92XA [facility] [address] [place] [id number] [place] [address] Mar, [facility] [address] [place] [id number] [place] [address] Mar, [facility] [address] [place] [id number] [place] [address] Mar, Injury of left knee, initial encounter S89.92XA and Acute pain of left knee M25.562 [facility] [address] [place] [id number] [place] [address] Dec, Seasonal allergies J30.2 ; C ough R05 and Gagging episode R19.8 [place] [id number] [address] November, Sore throat J02.9 ; Otalgia, bilateral H92.03 and Allergic rhinitis, unspecified seasonality, unspecified trigger J30.9 [place] [address] [address] Oct, [facility] [address] [address] Jun, Encounter for Depo-Provera c ontraception Z30.42 [facility] [address] [place] [id number] [address] [place] [address] Mar, Encounter for Depo-Provera c ontraception Z30.42 [place] [id number] [place] [id number] [address] [place] [address] Jan, test negative Z32. 02 [place] [address] [place] [id number] [place] [address] 15 Dec, 2016 Surveillance for contr ol, oral contraceptives Z30.41 and Encounter for Depo-Provera contraception Z30.42 [place] [address] [facility] [id number] [address] [place] [address] November, Well woman exam without gyne cological exam Z00.00 [place] [address] [facility] [id number] [address] [place] [address] Sep, Pharyngitis due to other org anism J02.8 [place] [address] [facility] [id number] [address] [place] [address] Aug, [place] [address] [place] [id number] [address] [place] [address] Aug, [place] [address] [place] [id number] [address] [place] [address] Aug, Vaginal candidiasis B37.3 [place] [address] [place] [id number] [address] [place] [address] Aug, Vaginal candidiasis B37.3 [place] [address] [place] [id number] [address] [place] [address] 14 Apr, 2016 Visit for TB skin test Z11.1 [place] [address] [place] [id number] [address] [place] [address] Mar, Visit for TB skin test Z11.1 and Screening for tuberculosis Z11.1 [place] [address] [place] [id number] [address] [place] [address] Mar, Routine health maintenance Z 00.00 and Recurrent kidney stones N20.0 [place] [address] [place] [id number] [address] [place] [address] 05 Mar, 2016 Ingrown right greater toenai l L60.0 and Acute non-recurrent frontal sinusitis J01.10 [place] [address] [place] [id number] [address] [place] [address] Mar, Ingrowing right great toenai l L60.0 and Recurrent kidney stones N20.0 [facility] [address] [place] [address] 08 Jan, 2016 Well woman exam without gyne cological exam Z00.00 and Encounter for surveillance of contraceptive pills Z30.41 [place] [address] [place] [id number] [address] [place] [address] 15 Nov, 2015 Surveillance for contr ol, oral contraceptives Z30.41 and Sore throat J02.9 [place] [address] [place] [id number] [address] [place] [address] Sep, Renal calculi N20.0 [place] [address] [address] Aug, Surveillance of contraceptiv e injection Z30.42 ; Encounter for Depo-Provera contraception Z30.42 and Encounter for counseling regarding contraception Z30.9 [place] [address] [place] [id number] [address] [place] [address] Aug, Asthma, exercise induced J45 .990 [place] [address] [place] [id number] [address] [place] [address] May, [facility] [address] [place] [id number] [place] [id number] Mar, Sports physical V70.3 ; Exer cise counseling V65.41 ; Dietary counseling V65.3 and Asthma 493.90 [place] [address] [place] [address] Mar, Encounter for contraceptive management V25.9 [place] [address] [place] [address] Jan, Routine child health exam V2 0.2 ; GARDASIL (HPV) DX V04.89 ; MENINGOCOCCAL DX V03.89 ; Dietary counseling and surveillance V65.3 ; Exercise counseling V65.41 and Recurrent nephrolithiasis 592.0 [place] [address] [place] [id number] [address] [place] [address] Jan, Kidney stone 592.0 [facility] [address] [id number] [address] [place] [address] 08 Jan, 2015 Herpes simplex without menti on of complication 054.9 [facility] [address] [id number] [address] [place] [address] 07 Dec, 2014 [facility] [address] [id number] [address] [place] [address] November, Encounter for contraceptive management V25.9 [facility] [address] [id number] [address] [place] [address] Oct, [facility] [address] [id number] [address] [place] [address] Oct, [facility] [address] [id number] [address] [place] [address] Sep, [facility] [address] [id number] [address] [place] [address] Sep, [facility] [address] [id number] [address] [place] [address] Sep, [facility] [address] [id number] [address] [place] [address] Sep, [facility] [address] [id number] [address] [place] [address] Aug, [facility] [address] [id number] [address] [place] [address] Aug, [facility] [address] [id number] [address] [place] [address] Aug, [facility] [address] [id number] [address] [place] [address] Aug, [facility] [address] [id number] [address] [place] [address] Jul, [facility] [address] [id number] [address] [place] [address], [place] [address] 16 Jul, 2014 [facility] [address] [id number] [address] [place] [address], [place] [address] Jul, [facility] [address] [id number] [address] [place] [address], [place] [address] Jul, [facility] [address] [id number] [address] [place] [address], [place] [address] Jul, [facility] [address] [id number] [address] [place] [address], [place] [address] Jul, [facility] [address] [id number] [address] [place] [address], [place] [address] Jul, [facility] [address] [id number] [address] [place] [address], [place] [address] Jul, [facility] [address] [id number] [address] [place] [address], [place] [address] Jul, [facility] [address] [id number] [address] [place] [address], [place] [address] Jun, [facility] [address] [id number] [address] [place] [address], [place] [address] Jun, [facility] [address] [id number] [address] [place] [address], [place] [address] Jun, [facility] [address] [id number] [address] [place] [address], [place] [address] Jun, [facility] [address] [id number] [address] [place] [address], [place] [address] Jun, [facility] [address] [id number] [address] [place] [address], [place] [address] Jun, [facility] [address] [id number] [address] [place] [address], [place] [address] Jun, [facility] [address] [id number] [address] [place] [address], [place] [address] Jun, [facility] [address] [id number] [address] [place] [address], [place] [address] Jun, [facility] [address] [id number] [address] [place] [address], [place] [address] Jun, [facility] [address] [id number] [address] [place] [address], [place] [address] Jun, [facility] [address] [id number] [address] [place] [address], [place] [address] Jun, [facility] [address] [id number] [address] [place] [address], [place] [address] Jun, [facility] [address] [id number] [address] [place] [address], [place] [address] Jun, [facility] [address] [id number] [address] [place] [address], [place] [address] May, [facility] [address] [id number] [address] [place] [address] May, [facility] [address] [id number] [address] [place] [address], [place] [address] May, [facility] [address] [id number] [address] [place] [address] May, [facility] [address] [id number] [address] [place] [address] May, [facility] [address] [id number] [address] [place] [address] May, [facility] [address] [id number] [address] [place] [address], [place] [address] May, [facility] [address] [id number] [address] [place] [address] May, [facility] [address] [id number] [address] [place] [address] May, [facility] [address] [id number] [address] [place] [address] May, [facility] [address] [id number] [address] [place] [address], [place] [address] Mar, [facility] [address] [id number] [address] [place] [address], [place] [address] Mar, [facility] [address] [id number] [address] [place] [address], [place] [address] Jan, [facility] [address] [id number] [address] [place] [address], [place] [address] Jan, [facility] [address] [id number] [address] [place] [address], [place] [address] Jan, [facility] [address] [id number] [address] [place] [address], [place] [address] Jan, [facility] [address] [id number] [address] [place] [address], [place] [address] Jan, [facility] [address] [id number] [address] [place] [address], [place] [address] Jan, [facility] [address] [id number] [address] [place] [address], [place] [address] November, [facility] [address] [id number] [address] [place] [address], [place] [address] November, [facility] [address] [id number] [address] [place] [address], [place] [address] November, [facility] [address] [id number] [address] [place] [address], [place] [address] November, [facility] [address] [id number] [address] [place] [address], [place] [address] Oct, [facility] [address] [id number] [address] [place] [address], [place] [address] Oct, [facility] [address] [id number] [address] [place] [address], [place] [address] Oct, [facility] [address] [id number] [address] [place] [address], [place] [address] Oct, [facility] [address] [id number] [address] [place] [address], [place] [address] Sep, [facility] [address] [id number] [address] [place] [address], [place] [address] Sep, [facility] [address] [id number] [address] [place] [address], [place] [address] Sep, [facility] [address] [id number] [address] [place] [address], [place] [address] Sep, [facility] [address] [id number] [address] [place] [address], [place] [address] Aug, [facility] [address] [id number] [address] [place] [address], [place] [address] Aug, [facility] [address] [id number] [address] [place] [address], [place] [address] Aug, [facility] [address] [id number] [address] [place] [address], [place] [address] Aug, [facility] [address] [id number] [address] [place] [address], [place] [address] Aug, [facility] [address] [id number] [address] [place] [address], [place] [address] Aug, [facility] [address] [id number] [address] [place] [address], [place] [address] Jul, [facility] [address] [id number] [address] [place] [address], [place] [address] Jul, [facility] [address] [id number] [address] [place] [address], [place] [address] Jul, [facility] [address] [id number] [address] [place] [address], [place] [address] Jul, [facility] [address] [id number] [address] [place] [address] [address] Jun, [facility] [address] [id number] [address] [place] [address], [place] [address] Jun, [facility] [address] [id number] [address] [place] [address], [place] [address] Jun, [facility] [address] [id number] [address] [place] [address], [place] [address] Jun, [facility] [address] [id number] [address] [place] [address], [place] [address] Jun, [facility] [address] [id number] [address] [place] [address], [place] [address] May, [facility] [address] [id number] [address] [place] [address], [place] [address] 24 May, 2013 [facility] [address] [id number] [address] [place] [address], [place] [address] May, [facility] [address] [id number] [address] [place] [address] 19 May, 2013 [facility] [address] [id number] [address] [place] [address], [place] [address] 18 May, 2013 [facility] [address] [id number] [address] [place] [address] 18 May, 2013 [facility] [address] [id number] [address] [place] [address] 14 May, 2013 [facility] [address] [id number] [address] [place] [address] 12 May, 2013 [facility] [address] [id number] [address] [place] [address] 11 May, 2013 [facility] [address] [id number] [address] [place] [address] 10 May, 2013 [facility] [address] [id number] [address] [place] [address] 10 May, 2013 [facility] [address] [id number] [address] [place] [address], [place] [address] 27 Apr, 2013 [facility] [address] [id number] [address] [place] [address], [place] [address] 19 Apr, 2013 [facility] [address] [id number] [address] [place] [address], [place] [address] 18 Jan, 2013 [facility] [address] [id number] [address] [place] [address], [place] [address] 16 Jan, 2013 [facility] [address] [id number] [address] [place] [address], [place] [address] 14 Dec, 2012 [facility] [address] [id number] [address] [place] [address], [place] [address] Dec, [facility] [address] [id number] [address] [place] [address], [place] [address] November, [facility] [address] [id number] [address] [place] [address], [place] [address] November, [facility] [address] [id number] [address] [place] [address], [place] [address] November, [facility] [address] [id number] [address] [place] [address], [place] [address] November, [facility] [address] [id number] [address] [place] [address], [place] [address] 24 Oct, 2012 [facility] [address] [id number] [address] [place] [address], [place] [address] 14 Sep, 2012 [facility] [address] [id number] [address] [place] [address], [place] [address] 13 Sep, 2012 [facility] [address] [id number] [address] [place] [address], [place] [address] 15 Sep, 2012 [facility] [address] [id number] [address] [place] [address], [place] [address] 14 Sep, 2012 [facility] [address] [id number] [address] [place] [address], [place] [address] 08 Sep, 2012 [facility] [address] [id number] [address] [place] [address], [place] [address] Sep, [facility] [address] [id number] [address] [place] [address], [place] [address] Aug, [facility] [address] [id number] [address] [place] [address], [place] [address] Aug, [facility] [address] [id number] [address] [place] [address], [place] [address] Jul, [facility] [address] [id number] [address] [place] [address], [place] [address] Jul, [facility] [address] [id number] [address] [place] [address], [place] [id number] Jun, [facility] [address] [id number] [address] [place] [address], [place] [id number] Jun, [facility] [address] [id number] [address] [place] [id number] Jun, [facility] [address] [id number] [address] [place] [address], [place] [id number] May, [facility] [address] [id number] [address] [place] [id number] May, [facility] [address] [id number] [address] [place] [id number] May, [facility] [address] [id number] [address] [place] [id number] May, [facility] [address] [id number] [address] [place] [address], [place] [id number] Apr, [facility] [address] [id number] [address] [place] [id number] 15 Apr, 2012 [facility] [address] [id number] [address] [place] [phone] Sep, [facility] [address] [id number] [address] [place] [id number] Mar, [facility] [address] [facility] [id number] [address] [place] [id number] Jan, [facility] [address] [facility] [id number] [address] [place] [id number] Oct, [facility] [address] [facility] [id number] [address] [place] [phone] May, IMMUNIZATIONS No Known Immunizations SOCIAL HISTORY Never Assessed REASON FOR VISIT PLAN OF CARE VITAL SIGNS MEDICATIONS Unknown Medications RESULTS No Results PROCEDURES Procedure Date Ordered Result Body Site THER/PROPH/DIAG INJ, SC/IM May 02, 2014 Medroxyprogesterone inj May 02, 2014 URINE TEST May 02, 2014 INSTRUCTIONS MEDICATIONS ADMINISTERED No Known Medications MEDICAL (GENERAL) HISTORY Type Description Date Medical History asthma Medical History kidney stones Medical History HSV 1 [employer] Surgical History thumb broken age 11 Surgical History kidney stone removed 03/18/2016 Hospitalization History kidney stones/ dehydration/ UTI Dece mber 2013 Hospitalization History ER visit for knee injury March 2018
--- OUTSIDE RECORDS SUMMARY | 2020-01-11 23:00 | XMS REPORT ---
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 Name Role Phone NAYAN WARD Unavailable PROBLEMS Type Condition ICD9-CM Code VEY29-KM Code Onset Dates Condition S tatus SNOMED Code Problem Other chronic pain G89.29 Active 8 8272269 Problem Seasonal allergies J30.2 Active 4 93587651 Problem Asthma, exercise induced J45.990 Activ e 60532674 Problem Recurrent kidney stones N20.0 Active [id number] ALLERGIES No Information ENCOUNTERS Encounter Location Date Diagnosis [facility] [address] [facility] [id number] [address] [place] [address] Sep, [facility] [address] [facility] [id number] [address] [place] [address] Aug, Fever R50.9 and Flu-like sym ptoms R68.89 [facility] [address] [facility] [id number] [address] [place] [address] Jul, care in first trime ster Z34.91 [facility] [address] [facility] [id number] [address] [place] [address] Jul, [facility] [address] [facility] [id number] [address] [place] [address] Jul, Currently in first trimester with unknown gestational age Z34.91 and care in first trimester Z34.91 [facility] [address] [facility] [id number] [address] [place] [address] Jul, care in first trime ster Z34.91 [facility] [address] [facility] [id number] [address] [place] [address] Jul, Currently in first trimester with unknown gestational age Z34.91 and care, first in first trimester Z34.01 [facility] [address] [place] [id number] [address] [place] [address] May, [facility] [address] [address] Apr, Sprain of left knee, unspeci fied ligament, initial encounter S83.92XA [place] [address] [address] Mar, [facility] [address] [address] Mar, [place] [address] [address] Mar, Injury of left knee, initial encounter S89.92XA and Acute pain of left knee M25.562 [facility] [address] [address] Dec, Seasonal allergies J30.2 ; C ough R05 and Gagging episode R19.8 [place] [address] [address] November, Sore throat J02.9 ; Otalgia, bilateral H92.03 and Allergic rhinitis, unspecified seasonality, unspecified trigger J30.9 [place] [address] [address] Oct, [place] [address] [address] Jun, Encounter for Depo-Provera c ontraception Z30.42 [place] [address] [address] Mar, Encounter for Depo-Provera c ontraception Z30.42 [place] [address] [place] [id number] [address] [place] [address] 05 Marlo, 2017 test negative Z32. 02 [place] [id number] [facility] [id number] [address] [place] [address] 15 Dec, 2016 Surveillance for contr ol, oral contraceptives Z30.41 and Encounter for Depo-Provera contraception Z30.42 [place] [address] [facility] [id number] [address] [place] [address] November, Well woman exam without gyne cological exam Z00.00 [place] [address] [facility] [id number] [address] [place] [address] 23 Sep, 2016 Pharyngitis due to other org anism J02.8 [place] [address] [facility] [id number] [address] [place] [address] Aug, [place] [address] [facility] [id number] [address] [place] [address] Aug, [place] [address] [place] [id number] [address] [place] [address] Aug, Vaginal candidiasis B37.3 [place] [address] [place] [id number] [address] [place] [address] Aug, Vaginal candidiasis B37.3 [place] [address] [place] [id number] [address] [place] [address] 14 Apr, 2016 Visit for TB skin test Z11.1 [place] [address] [place] [id number] [address] [place] [address] Mar, Visit for TB skin test Z11.1 and Screening for tuberculosis Z11.1 [place] [address] [place] [id number] [address] [place] [address] Mar, Routine health maintenance Z 00.00 and Recurrent kidney stones N20.0 [place] [address] [facility] [id number] [address] [place] [address] 05 Mar, 2016 Ingrown right greater toenai l L60.0 and Acute non-recurrent frontal sinusitis J01.10 [place] [address] [place] [id number] [address] [place] [address] Mar, Ingrowing right great toenai l L60.0 and Recurrent kidney stones N20.0 [place] [address] [place] [id number] [address] [place] [address] Dec, Well woman exam without gyne cological exam Z00.00 and Encounter for surveillance of contraceptive pills Z30.41 [place] [address] [address] Oct, Surveillance for contr ol, oral contraceptives Z30.41 and Sore throat J02.9 [place] [address] [address] Sep, Renal calculi N20.0 [place] [address] [place] [id number] [address] [place] [address] 18 Aug, 2015 Surveillance of contraceptiv e injection Z30.42 ; Encounter for Depo-Provera contraception Z30.42 and Encounter for counseling regarding contraception Z30.9 [place] [id number] [place] [address] Aug, Asthma, exercise induced J45 .990 [place] [address] [place] [address] May, [facility] [id number] [place] [id number] Mar, Sports physical V70.3 ; Exer cise counseling V65.41 ; Dietary counseling V65.3 and Asthma 493.90 [place] [address] [place] [id number] [address] [place] [address] Mar, Encounter for contraceptive management V25.9 [place] [address] [place] [address] Jan, Routine child health exam V2 0.2 ; GARDASIL (HPV) DX V04.89 ; MENINGOCOCCAL DX V03.89 ; Dietary counseling and surveillance V65.3 ; Exercise counseling V65.41 and Recurrent nephrolithiasis 592.0 [facility] [address] [id number] [address] [place] [address] 17 Jan, 2015 Kidney stone 592.0 [facility] [address] [id number] [address] [place] [address] 08 Jan, 2015 Herpes simplex without menti on of complication 054.9 [facility] [address] [id number] [address] [place] [address] 07 Dec, 2014 [facility] [address] [id number] [address] [place] [address] November, Encounter for contraceptive management V25.9 [facility] [address] [id number] [address] [place] [address] 14 Oct, 2014 [facility] [address] [id number] [address] [place] [address] Oct, [facility] [address] [id number] [address] [place] [address] Sep, [facility] [address] [id number] [address] [place] [address] Sep, [facility] [address] [id number] [address] [place] [address] Sep, [facility] [address] [id number] [address] [place] [address] Sep, [facility] [address] [id number] [address] [place] [address] Aug, [facility] [address] [id number] [address] [place] [address] Aug, [facility] [address] [id number] [address] [place] [address] Aug, [facility] [address] [id number] [address] [place] [address] Aug, [facility] [address] [id number] [address] [place] [address], [place] [address] 16 Jul, 2014 [facility] [address] [id number] [address] [place] [address], [place] [address] 16 Jul, 2014 [facility] [address] [id number] [address] [place] [address], [place] [address] Jul, [facility] [address] [id number] [address] [place] [address], [place] [address] Jul, [facility] [address] [id number] [address] [place] [address], [place] [address] Jul, [facility] [address] [id number] [address] [place] [address], [place] [address] Jul, [facility] [address] [id number] [address] [place] [address], [place] [address] Jul, [facility] [address] [id number] [address] [place] [address], [place] [address] Jul, [facility] [address] [id number] [address] [place] [address], [place] [address] Jul, [facility] [address] [id number] [address] [place] [address], [place] [address] Jun, [facility] [address] [id number] [address] [place] [address], [place] [address] Jun, [facility] [address] [id number] [address] [place] [address], [place] [address] Jun, [facility] [address] [id number] [address] [place] [address], [place] [address] Jun, [facility] [address] [id number] [address] [place] [address], [place] [address] Jun, [facility] [address] [id number] [address] [place] [address], [place] [address] Jun, [facility] [address] [id number] [address] [place] [address], [place] [address] Jun, [facility] [address] [id number] [address] [place] [address], [place] [address] Jun, [facility] [address] [id number] [address] [place] [address], [place] [address] Jun, [facility] [address] [id number] [address] [place] [address], [place] [address] Jun, [facility] [address] [id number] [address] [place] [address], [place] [address] Jun, [facility] [address] [id number] [address] [place] [address], [place] [address] Jun, [facility] [address] [id number] [address] [place] [address], [place] [address] Jun, [facility] [address] [id number] [address] [place] [address], [place] [address] Jun, [facility] [address] [id number] [address] [place] [address], [place] [address] May, [facility] [address] [id number] [address] [place] [address], [place] [address] May, [facility] [address] [id number] [address] [place] [address], [place] [address] May, [facility] [address] [id number] [address] [place] [address], [place] [address] May, [facility] [address] [id number] [address] [place] [address], [place] [address] May, [facility] [address] [id number] [address] [place] [address], [place] [address] May, [facility] [address] [id number] [address] [place] [address], [place] [address] May, [facility] [address] [id number] [address] [place] [address], [place] [address] 07 May, 2014 [facility] [address] [id number] [address] [place] [address], [place] [address] May, [facility] [address] [id number] [address] [place] [address], [place] [address] May, [facility] [address] [id number] [address] [place] [address], [place] [address] Mar, [facility] [address] [id number] [address] [place] [address], [place] [address] Mar, [facility] [address] [id number] [address] [place] [address], [place] [address] Jan, [facility] [address] [id number] [address] [place] [address], [place] [address] Jan, [facility] [address] [id number] [address] [place] [address], [place] [address] Jan, [facility] [address] [id number] [address] [place] [address], [place] [address] Jan, [facility] [address] [id number] [address] [place] [address], [place] [address] Jan, [facility] [address] [id number] [address] [place] [address], [place] [address] Jan, [facility] [address] [id number] [address] [place] [address], [place] [address] November, [facility] [address] [id number] [address] [place] [address], [place] [address] November, [facility] [address] [id number] [address] [place] [address], [place] [address] November, [facility] [address] [id number] [address] [place] [address], [place] [address] November, [facility] [address] [id number] [address] [place] [address], [place] [address] Oct, [facility] [address] [id number] [address] [place] [address], [place] [address] Oct, [facility] [address] [id number] [address] [place] [address], [place] [address] Oct, [facility] [address] [id number] [address] [place] [address], [place] [address] Oct, [facility] [place] [address] [id number] [address] [place] [address], [place] [address] Sep, [facility] [place] [address] [id number] [address] [place] [address], [place] [address] Sep, [facility] [address] [id number] [address] [place] [address], [place] [address] Sep, [facility] [address] [id number] [address] [place] [address], [place] [address] Sep, [facility] [address] [id number] [address] [place] [address], [place] [address] Aug, [facility] [address] [id number] [address] [place] [address], [place] [address] Aug, [facility] [address] [id number] [address] [place] [address], [place] [address] Aug, [facility] [place] [address] [id number] [address] [place] [address], [place] [address] Aug, [facility] [address] [id number] [address] [place] [address], [place] [address] Aug, [facility] [address] [id number] [address] [place] [address], [place] [address] Aug, [facility] [address] [id number] [address] [place] [address], [place] [address] Jul, [facility] [address] [id number] [address] [place] [address], [place] [address] Jul, [facility] [address] [id number] [address] [place] [address], [place] [address] Jul, [facility] [address] [id number] [address] [place] [address], [place] [address] Jul, [facility] [address] [id number] [address] [place] [address], [place] [address] Jun, [facility] [address] [id number] [address] [place] [address], [place] [address] Jun, [facility] [address] [id number] [address] [place] [address], [place] [address] Jun, [facility] [address] [id number] [address] [place] [address], [place] [address] Jun, [facility] [address] [id number] [address] [place] [address], [place] [address] Jun, [facility] [address] [id number] [address] [place] [address], [place] [address] May, [facility] [address] [id number] [address] [place] [address], [place] [address] May, [facility] [address] [id number] [address] [place] [address] May, [facility] [address] [id number] [address] [place] [address], [place] [address] 19 May, 2013 [facility] [address] [id number] [address] [place] [address] 18 May, 2013 [facility] [address] [id number] [address] [place] [address] 18 May, 2013 [facility] [address] [id number] [address] [place] [address] 14 May, 2013 [facility] [address] [id number] [address] [place] [address] 12 May, 2013 [facility] [address] [id number] [address] [place] [address] 11 May, 2013 [facility] [address] [id number] [address] [place] [address] 10 May, 2013 [facility] [address] [id number] [address] [place] [address] 10 May, 2013 [facility] [address] [id number] [address] [place] [address], [place] [address] 27 Apr, 2013 [facility] [address] [id number] [address] [place] [address], [place] [address] 19 Apr, 2013 [facility] [address] [id number] [address] [place] [address], [place] [address] 18 Jan, 2013 [facility] [address] [id number] [address] [place] [address], [place] [address] 16 Jan, 2013 [facility] [address] [id number] [address] [place] [address], [place] [address] 14 Dec, 2012 [facility] [address] [id number] [address] [place] [address], [place] [address] Dec, [facility] [address] [id number] [address] [place] [address], [place] [address] November, [facility] [address] [id number] [address] [place] [address], [place] [address] November, [facility] [address] [id number] [address] [place] [address], [place] [address] November, [facility] [address] [id number] [address] [place] [address], [place] [address] November, [facility] [address] [id number] [address] [place] [address], [place] [address] 24 Oct, 2012 [facility] [address] [id number] [address] [place] [address], [place] [address] 14 Sep, 2012 [facility] [address] [id number] [address] [place] [address], [place] [address] 13 Sep, 2012 [facility] [address] [id number] [address] [place] [address], [place] [address] 15 Sep, 2012 [facility] [address] [id number] [address] [place] [address], [place] [address] 14 Sep, 2012 [facility] [address] [id number] [address] [place] [address], [place] [address] 08 Sep, 2012 [facility] [address] [id number] [address] [place] [address], [place] [address] Sep, [facility] [address] [id number] [address] [place] [address], [place] [address] Aug, [facility] [address] [id number] [address] [place] [address], [place] [address] Aug, [facility] [address] [id number] [address] [place] [address], [place] [address] Jul, [facility] [address] [id number] [address] [place] [address], [place] [address] Jul, [facility] [address] [id number] [address] [place] [address], [place] [address] Jun, [facility] [address] [id number] [address] [place] [address], [place] [address] Jun, [facility] [address] [id number] [address] [place] [address], [place] [address] Jun, [facility] [address] [id number] [address] [place] [address], [place] [address] May, [facility] [address] [id number] [address] [place] [address], [place] [address] 31 May, 2012 [facility] [address] [id number] [address] [place] [address], [place] [address] 24 May, 2012 [facility] [address] [id number] [address] [place] [address], [place] [address] 24 May, 2012 [facility] [address] [id number] [address] [place] [address], [place] [address] 27 Apr, 2012 [facility] [address] [id number] [address] [place] [address], [place] [address] 15 Apr, 2012 [facility] [address] [id number] [address] [place] [id number] Sep, [facility] [address] [facility] [id number] [address] [place] [id number] Mar, [facility] [address] [facility] [id number] [address] [place] [phone] Jan, [facility] [address] [facility] [id number] [address] [place] [id number] Oct, [facility] [address] [facility] [id number] [address] [place] [phone] May, IMMUNIZATIONS No Known Immunizations SOCIAL HISTORY Never Assessed REASON FOR VISIT PLAN OF CARE VITAL SIGNS MEDICATIONS Unknown Medications RESULTS No Results PROCEDURES No Known procedures INSTRUCTIONS MEDICATIONS ADMINISTERED No Known Medications MEDICAL (GENERAL) HISTORY Type Description Date Medical History asthma Medical History kidney stones Medical History HSV 1 [employer]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
--- OUTSIDE RECORDS SUMMARY | 2020-01-11 23:00 | XMS REPORT ---
Author Author Cedric Garcia Doctor Organization [facility] Address Unknown Phone Unavailable Care Team Providers Care Electroneurodiagnostic Technician Name Role Phone Migration, Doctor Unavailable Unavailable PROBLEMS Type Condition ICD9-CM Code [id number] Code Onset Dates Condition S tatus SNOMED Code Problem Other chronic pain G89.29 Active 8 6575086 Problem Seasonal allergies J30.2 Active 4 49612748 Problem Asthma, exercise induced J45.990 Activ e 25302084 Problem Recurrent kidney stones N20.0 Active [id number] ALLERGIES No Information ENCOUNTERS Encounter Location Date Diagnosis [facility], [place] [address] [facility] [id number] [address] [place] [phone] Sep, [facility] [address] [facility] [id number] [address] [place] [phone] Aug, Fever R50.9 and Flu-like sym ptoms R68.89 [facility], [place] [address] [facility] [id number] [address] [place] [phone] Jul, care in first trime ster Z34.91 [facility], [place] [address] [facility] [id number] [address] [place] [phone] Jul, [facility], [place] [address] [facility] [id number] [address] [place] [phone] Jul, Currently in first trimester with unknown gestational age Z34.91 and care in first trimester Z34.91 [facility], [place] [address] [facility] [id number] [address] [place] [phone] Jul, care in first trime ster Z34.91 [facility], [place] [address] [facility] [id number] [address] [place] [phone] Jul, Currently in first trimester with unknown gestational age Z34.91 and care, first in first trimester Z34.01 [facility], [place] [address] [facility] [id number] [address] [place] [address] May, [facility], [place] [address] [address] Apr, Sprain of left knee, unspeci fied ligament, initial encounter S83.92XA [facility], [place] [address] [place] [id number] [place] [address] Mar, [facility], [place] [address] [place] [id number] [place] [address] Mar, [facility], [place] [address] [place] [id number] [place] [address] Mar, Injury of left knee, initial encounter S89.92XA and Acute pain of left knee M25.562 [facility] [address] [place] [id number] [place] [address] Dec, Seasonal allergies J30.2 ; C ough R05 and Gagging episode R19.8 [place] [id number] [address] November, Sore throat J02.9 ; Otalgia, bilateral H92.03 and Allergic rhinitis, unspecified seasonality, unspecified trigger J30.9 [place] [address] [address] Oct, [facility], [place] [address] [address] Jun, Encounter for Depo-Provera c ontraception Z30.42 [facility], [place] [address] [place] [id number] [address] [place] [phone] Mar, Encounter for Depo-Provera c ontraception Z30.42 [place] [address] [place] [id number] [address] [place] [address] Jan, test negative Z32. 02 [place] [address] [place] [id number] [place] [phone] 15 Dec, 2016 Surveillance for contr ol, oral contraceptives Z30.41 and Encounter for Depo-Provera contraception Z30.42 [place] [address] [facility] [id number] [address] [place] [address] November, Well woman exam without gyne cological exam Z00.00 [place] [address] [facility] [id number] [address] [place] [address] Sep, Pharyngitis due to other org anism J02.8 [place] [address] [facility] [id number] [address] [place] [address] Aug, [place] [address] [place] [id number] [address] [place] [address] Aug, [place] [address] [place] [id number] [address] [place] [address] Aug, Vaginal candidiasis B37.3 [place] [address] [place] [id number] [address] [place] [address] Aug, Vaginal candidiasis B37.3 [place] [address] [place] [id number] [address] [place] [phone] 14 Apr, 2016 Visit for TB skin test Z11.1 [place] [address] [place] [id number] [address] [place] [address] Mar, Visit for TB skin test Z11.1 and Screening for tuberculosis Z11.1 [place] [address] [place] [id number] [address] [place] [address] Mar, Routine health maintenance Z 00.00 and Recurrent kidney stones N20.0 [place] [address] [place] [id number] [address] [place] [phone] 05 Mar, 2016 Ingrown right greater toenai l L60.0 and Acute non-recurrent frontal sinusitis J01.10 [place] [address] [place] [id number] [address] [place] [address] Mar, Ingrowing right great toenai l L60.0 and Recurrent kidney stones N20.0 [facility], [place] [address] [place] [address] 08 Jan, 2016 Well woman exam without gyne cological exam Z00.00 and Encounter for surveillance of contraceptive pills Z30.41 [place] [address] [place] [id number] [address] [place] [address] 15 Nov, 2015 Surveillance for contr ol, oral contraceptives Z30.41 and Sore throat J02.9 [place] [address] [place] [id number] [address] [place] [address] Sep, Renal calculi N20.0 [place] [address] [address] Aug, Surveillance of contraceptiv e injection Z30.42 ; Encounter for Depo-Provera contraception Z30.42 and Encounter for counseling regarding contraception Z30.9 [place] [address] [place] [id number] [address] [place] [address] Aug, Asthma, exercise induced J45 .990 [place] [address] [place] [id number] [address] [place] [address] May, [facility] [address] [place] [id number] [place] [id number] Mar, Sports physical V70.3 ; Exer cise counseling V65.41 ; Dietary counseling V65.3 and Asthma 493.90 [place] [address] [place] [address] Mar, Encounter for contraceptive management V25.9 [place] [address] [place] [address] Jan, Routine child health exam V2 0.2 ; GARDASIL (HPV) DX V04.89 ; MENINGOCOCCAL DX V03.89 ; Dietary counseling and surveillance V65.3 ; Exercise counseling V65.41 and Recurrent nephrolithiasis 592.0 [place] [address] [place] [id number] [address] [place] [address] Jan, Kidney stone 592.0 [facility], [place] [address] [id number] [address] [place] [phone] 08 Jan, 2015 Herpes simplex without menti on of complication 054.9 [facility], [place] [address] [id number] [address] [place] [phone] 07 Dec, 2014 [facility] [place] [address] [id number] [address] [place] [address] November, Encounter for contraceptive management V25.9 [facility] [place] [address] [id number] [address] [place] [address] Oct, [facility] [place] [address] [id number] [address] [place] [address] Oct, [facility] [place] [address] [id number] [address] [place] [address] Sep, [facility] [place] [address] [id number] [address] [place] [phone] Sep, [facility] [place] [address] [id number] [address] [place] [phone] Sep, [facility] [place] [address] [id number] [address] [place] [phone] Sep, [facility] [place] [address] [id number] [address] [place] [phone] Aug, [facility] [place] [address] [id number] [address] [place] [phone] Aug, [facility] [place] [address] [id number] [address] [place] [address] Aug, [facility] [place] [address] [id number] [address] [place] [address] Aug, [facility] [place] [address] [id number] [address] [place] [phone] Jul, [facility] [address] [id number] [address] [place] [address], [place] [address] 16 Jul, 2014 [facility] [address] [id number] [address] [place] [address], [place] [address] Jul, [facility] [address] [id number] [address] [place] [address], [place] [address] Jul, [facility] [address] [id number] [address] [place] [address], [place] [address] Jul, [facility] [address] [id number] [address] [place] [address], [place] [address] Jul, [facility] [address] [id number] [address] [place] [address], [place] [address] Jul, [facility] [address] [id number] [address] [place] [address], [place] [address] Jul, [facility] [address] [id number] [address] [place] [address], [place] [address] Jul, [facility] [address] [id number] [address] [place] [address], [place] [address] Jun, [facility] [address] [id number] [address] [place] [address], [place] [address] Jun, [facility] [address] [id number] [address] [place] [address], [place] [address] Jun, [facility] [address] [id number] [address] [place] [address], [place] [address] Jun, [facility] [address] [id number] [address] [place] [address], [place] [address] Jun, [facility] [address] [id number] [address] [place] [address], [place] [address] Jun, [facility] [address] [id number] [address] [place] [address], [place] [address] Jun, [facility] [address] [id number] [address] [place] [address], [place] [address] Jun, [facility] [address] [id number] [address] [place] [address], [place] [address] Jun, [facility] [address] [id number] [address] [place] [address], [place] [address] Jun, [facility] [address] [id number] [address] [place] [address], [place] [address] Jun, [facility] [address] [id number] [address] [place] [address], [place] [address] Jun, [facility] [address] [id number] [address] [place] [address], [place] [address] Jun, [facility] [address] [id number] [address] [place] [address], [place] [address] Jun, [facility] [address] [id number] [address] [place] [address], [place] [address] May, [facility] [address] [id number] [address] [place] [address] May, [facility] [address] [id number] [address] [place] [address], [place] [address] May, [facility] [address] [id number] [address] [place] [phone] May, [facility] [address] [id number] [address] [place] [address] May, [facility] [address] [id number] [address] [place] [address] May, [facility] [address] [id number] [address] [place] [address], [place] [address] May, [facility] [address] [id number] [address] [place] [address] May, [facility] [address] [id number] [address] [place] [address] May, [facility] [address] [id number] [address] [place] [address] May, [facility] [address] [id number] [address] [place] [address], [place] [address] Mar, [facility] [address] [id number] [address] [place] [address], [place] [address] Mar, [facility] [address] [id number] [address] [place] [address], [place] [address] Jan, [facility] [address] [id number] [address] [place] [address], [place] [address] Jan, [facility] [address] [id number] [address] [place] [address], [place] [address] Jan, [facility] [address] [id number] [address] [place] [address], [place] [address] Jan, [facility] [address] [id number] [address] [place] [address], [place] [address] Jan, [facility] [address] [id number] [address] [place] [address], [place] [address] Jan, [facility] [address] [id number] [address] [place] [address], [place] [address] November, [facility] [address] [id number] [address] [place] [address], [place] [address] November, [facility] [address] [id number] [address] [place] [address], [place] [address] November, [facility] [address] [id number] [address] [place] [address], [place] [address] November, [facility] [address] [id number] [address] [place] [address], [place] [address] Oct, [facility] [address] [id number] [address] [place] [address], [place] [address] Oct, [facility] [address] [id number] [address] [place] [address], [place] [address] Oct, [facility] [address] [id number] [address] [place] [address], [place] [address] Oct, [facility] [address] [id number] [address] [place] [address], [place] [address] Sep, [facility] [address] [id number] [address] [place] [address], [place] [address] Sep, [facility] [address] [id number] [address] [place] [address], [place] [address] Sep, [facility] [address] [id number] [address] [place] [address], [place] [address] Sep, [facility] [address] [id number] [address] [place] [address], [place] [address] Aug, [facility] [address] [id number] [address] [place] [address], [place] [address] Aug, [facility] [address] [id number] [address] [place] [address], [place] [address] Aug, [facility] [address] [id number] [address] [place] [address], [place] [address] Aug, [facility] [address] [id number] [address] [place] [address], [place] [address] Aug, [facility] [address] [id number] [address] [place] [address], [place] [address] Aug, [facility] [address] [id number] [address] [place] [address], [place] [address] Jul, [facility] [address] [id number] [address] [place] [address], [place] [address] Jul, [facility] [address] [id number] [address] [place] [address], [place] [address] Jul, [facility] [address] [id number] [address] [place] [address], [place] [address] Jul, [facility] [address] [id number] [address] [place] [address] [address] Jun, [facility] [address] [id number] [address] [place] [address], [place] [address] Jun, [facility] [address] [id number] [address] [place] [address], [place] [address] Jun, [facility] [address] [id number] [address] [place] [address], [place] [address] Jun, [facility] [address] [id number] [address] [place] [address], [place] [address] Jun, [facility] [address] [id number] [address] [place] [address], [place] [address] May, [facility] [address] [id number] [address] [place] [address], [place] [address] 24 May, 2013 [facility] [address] [id number] [address] [place] [address], [place] [address] May, [facility] [address] [id number] [address] [place] [address] 19 May, 2013 [facility] [address] [id number] [address] [place] [address], [place] [address] 18 May, 2013 [facility] [address] [id number] [address] [place] [address] 18 May, 2013 [facility] [address] [id number] [address] [place] [address] 14 May, 2013 [facility] [address] [id number] [address] [place] [address] 12 May, 2013 [facility] [address] [id number] [address] [place] [phone] 11 May, 2013 [facility] [address] [id number] [address] [place] [address] 10 May, 2013 [facility] [address] [id number] [address] [place] [address] 10 May, 2013 [facility] [address] [id number] [address] [place] [address], [place] [address] 27 Apr, 2013 [facility] [address] [id number] [address] [place] [address], [place] [address] 19 Apr, 2013 [facility] [address] [id number] [address] [place] [address], [place] [address] 18 Jan, 2013 [facility] [address] [id number] [address] [place] [address], [place] [address] 16 Jan, 2013 [facility] [address] [id number] [address] [place] [address], [place] [address] 14 Dec, 2012 [facility] [address] [id number] [address] [place] [address], [place] [address] Dec, [facility] [address] [id number] [address] [place] [address], [place] [address] November, [facility] [address] [id number] [address] [place] [address], [place] [address] November, [facility] [address] [id number] [address] [place] [address], [place] [address] November, [facility] [address] [id number] [address] [place] [address], [place] [address] November, [facility] [address] [id number] [address] [place] [address], [place] [address] 24 Oct, 2012 [facility] [address] [id number] [address] [place] [address], [place] [address] 14 Sep, 2012 [facility] [address] [id number] [address] [place] [address], [place] [address] 13 Sep, 2012 [facility] [address] [id number] [address] [place] [address], [place] [address] 15 Sep, 2012 [facility] [address] [id number] [address] [place] [address], [place] [address] 14 Sep, 2012 [facility] [address] [id number] [address] [place] [address], [place] [address] 08 Sep, 2012 [facility] [address] [id number] [address] [place] [address], [place] [address] Sep, [facility] [address] [id number] [address] [place] [address], [place] [address] Aug, [facility] [address] [id number] [address] [place] [address], [place] [address] Aug, [facility] [address] [id number] [address] [place] [address], [place] [address] Jul, [facility] [address] [id number] [address] [place] [address], [place] [address] Jul, [facility] [address] [id number] [address] [place] [address], [place] [address] Jun, [facility] [address] [id number] [address] [place] [address], [place] [address] Jun, [facility] [address] [id number] [address] [place] [phone] Jun, [facility] [address] [id number] [address] [place] [address], [place] [address] May, [facility] [address] [id number] [address] [place] [phone] May, [facility] [address] [id number] [address] [place] [phone] May, [facility] [address] [id number] [address] [place] [phone] May, [facility] [address] [id number] [address] [place] [address], [place] [address] Apr, [facility] [address] [id number] [address] [place] [phone] 15 Apr, 2012 [facility] [address] [id number] [address] [place] [phone] Sep, [facility] [address] [id number] [address] [place] [phone] Mar, [facility] [place] [address] [facility] [id number] [address] [place] [id number] Jan, [facility] [place] [address] [facility] [id number] [address] [place] [phone] Oct, [facility] [place] [address] [facility] [id number] [address] [place] [phone] May, IMMUNIZATIONS No Known Immunizations SOCIAL HISTORY Never Assessed REASON FOR VISIT PLAN OF CARE VITAL SIGNS MEDICATIONS Unknown Medications RESULTS No Results PROCEDURES Procedure Date Ordered Result Body Site Medroxyprogesterone inj February 16, 2013 URINE TEST February 16, 2013 INSTRUCTIONS MEDICATIONS ADMINISTERED No Known Medications MEDICAL (GENERAL) HISTORY Type Description Date Medical History asthma Medical History kidney stones Medical History HSV 1 [employer] Surgical History thumb broken age 11 Surgical History kidney stone removed 03/18/2016 Hospitalization History kidney stones/ dehydration/ UTI Dece mber 2013 Hospitalization History ER visit for knee injury March 2018
--- OUTSIDE RECORDS SUMMARY | 2020-01-11 23:00 | XMS REPORT ---
Author Author Cedric MCPHERSON Organization [facility] Address [address] [place] [address] Care Team Providers Care Line Therapist Name Role Phone RONDA MCPHERSON Unavailable PROBLEMS Type Condition ICD9-CM Code [id number] Code Onset Dates Condition S tatus SNOMED Code Problem Other chronic pain G89.29 Active 8 4668445 Problem Seasonal allergies J30.2 Active 4 77030629 Problem Asthma, exercise induced J45.990 Activ e 87839267 Problem Recurrent kidney stones N20.0 Active [id number] ALLERGIES No Information ENCOUNTERS Encounter Location Date Diagnosis [facility] [address] [facility] [id number] [address] [place] [address] Sep, [facility] [address] [facility] [id number] [address] [place] [address] Aug, Fever R50.9 and Flu-like sym ptoms R68.89 [facility] [address] [facility] [id number] [address] [place] [address] Jul, care in first trime ster Z34.91 [facility] [address] [facility] [id number] [address] [place] [address] Jul, [facility] [address] [facility] [id number] [address] [place] [address] Jul, Currently in first trimester with unknown gestational age Z34.91 and care in first trimester Z34.91 [facility] [address] [facility] [id number] [address] [place] [address] Jul, care in first trime ster Z34.91 [facility] [address] [facility] [id number] [address] [place] [address] Jul, Currently in first trimester with unknown gestational age Z34.91 and care, first in first trimester Z34.01 [facility] [address] [place] [id number] [address] [place] [address] May, [facility] [address] [place] [id number] [address] [place] [address] Apr, Sprain of left knee, unspeci fied ligament, initial encounter S83.92XA [place] [address] [address] Mar, [facility] [address] [address] Mar, [place] [address] [address] Mar, Injury of left knee, initial encounter S89.92XA and Acute pain of left knee M25.562 [facility] [address] [place] [id number] [address] [place] [address] Dec, Seasonal allergies J30.2 ; C ough R05 and Gagging episode R19.8 [place] [address] [address] November, Sore throat J02.9 ; Otalgia, bilateral H92.03 and Allergic rhinitis, unspecified seasonality, unspecified trigger J30.9 [place] [address] [place] [id number] [address] [place] [address] Oct, [place] [address] [address] Jun, Encounter for Depo-Provera c ontraception Z30.42 [place] [address] [place] [id number] [address] [place] [address] Mar, Encounter for Depo-Provera c ontraception Z30.42 [place] [address] [place] [id number] [address] [place] [address] Jan, test negative Z32. 02 [place] [address] [facility] [id number] [address] [place] [address] 15 Dec, 2016 Surveillance for contr ol, oral contraceptives Z30.41 and Encounter for Depo-Provera contraception Z30.42 [place] [address] [facility] [id number] [address] [place] [address] November, Well woman exam without gyne cological exam Z00.00 [place] [address] [facility] [id number] [address] [place] [address] Sep, Pharyngitis due to other org anism J02.8 [place] [address] [facility] [id number] [address] [place] [address] Aug, [place] [address] [place] [id number] [address] [place] [address] Aug, [place] [address] [place] [address] Aug, Vaginal candidiasis B37.3 [place] [address] [place] [id number] [address] [place] [address] Aug, Vaginal candidiasis B37.3 [place] [address] [place] [id number] [address] [place] [address] 14 Apr, 2016 Visit for TB skin test Z11.1 [place] [address] [place] [id number] [address] [place] [address] Mar, Visit for TB skin test Z11.1 and Screening for tuberculosis Z11.1 [place] [address] [facility] [id number] [address] [place] [address] Mar, Routine health maintenance Z 00.00 and Recurrent kidney stones N20.0 [place] [address] [facility] [id number] [address] [place] [address] Mar, Ingrown right greater toenai l L60.0 and Acute non-recurrent frontal sinusitis J01.10 [place] [address] [place] [address] Mar, Ingrowing right great toenai l L60.0 and Recurrent kidney stones N20.0 [place] [address] [place] [id number] [address] [place] [address] Dec, Well woman exam without gyne cological exam Z00.00 and Encounter for surveillance of contraceptive pills Z30.41 [place] [address] [address] Oct, Surveillance for contr ol, oral contraceptives Z30.41 and Sore throat J02.9 [place] [address] [address] Sep, Renal calculi N20.0 [place] [address] [address] Aug, Surveillance of contraceptiv e injection Z30.42 ; Encounter for Depo-Provera contraception Z30.42 and Encounter for counseling regarding contraception Z30.9 [place] [address] [place] [address] Aug, Asthma, exercise induced J45 .990 [place] [address] [place] [address] May, [facility] [id number] [place] [id number] Mar, Sports physical V70.3 ; Exer cise counseling V65.41 ; Dietary counseling V65.3 and Asthma 493.90 [place] [address] [place] [id number] [address] [place] [address] Mar, Encounter for contraceptive management V25.9 [place] [address] [place] [address] Jan, Routine child health exam V2 0.2 ; GARDASIL (HPV) DX V04.89 ; MENINGOCOCCAL DX V03.89 ; Dietary counseling and surveillance V65.3 ; Exercise counseling V65.41 and Recurrent nephrolithiasis 592.0 [facility] [address] [id number] [address] [place] [address] 17 Jan, 2015 Kidney stone 592.0 [facility] [address] [id number] [address] [place] [phone] 08 Jan, 2015 Herpes simplex without menti on of complication 054.9 [facility] [address] [id number] [address] [place] [address] Dec, [facility] [address] [id number] [address] [place] [address] November, Encounter for contraceptive management V25.9 [facility] [address] [id number] [address] [place] [address] 14 Oct, 2014 [facility] [address] [facility] [id number] [address] [place] [address] Oct, [facility] [address] [id number] [address] [place] [address] Sep, [facility] [address] [id number] [address] [place] [address] Sep, [facility] [address] [facility] [id number] [address] [place] [address] Sep, [facility] [address] [id number] [address] [place] [address] Sep, [facility] [address] [id number] [address] [place] [address] Aug, [facility] [address] [id number] [address] [place] [address] Aug, [facility] [address] [id number] [address] [place] [address] Aug, [facility] [address] [id number] [address] [place] [address] Aug, [facility] [address] [id number] [address] [place] [address], [place] [address] 16 Jul, 2014 [facility] [address] [id number] [address] [place] [address], [place] [address] Jul, [facility] [address] [id number] [address] [place] [address], [place] [address] Jul, [facility] [address] [id number] [address] [place] [address], [place] [address] Jul, [facility] [address] [id number] [address] [place] [address], [place] [address] Jul, [facility] [address] [id number] [address] [place] [address], [place] [address] Jul, [facility] [address] [id number] [address] [place] [address], [place] [address] Jul, [facility] [address] [id number] [address] [place] [address], [place] [address] Jul, [facility] [address] [id number] [address] [place] [address], [place] [address] Jul, [facility] [address] [id number] [address] [place] [address], [place] [address] Jun, [facility] [address] [id number] [address] [place] [address], [place] [address] Jun, [facility] [address] [id number] [address] [place] [address], [place] [address] Jun, [facility] [address] [id number] [address] [place] [address], [place] [address] Jun, [facility] [address] [id number] [address] [place] [address], [place] [address] Jun, [facility] [address] [id number] [address] [place] [address], [place] [address] Jun, [facility] [address] [id number] [address] [place] [address], [place] [address] Jun, [facility] [address] [id number] [address] [place] [address], [place] [address] Jun, [facility] [address] [id number] [address] [place] [address], [place] [address] Jun, [facility] [address] [id number] [address] [place] [address], [place] [address] Jun, [facility] [address] [id number] [address] [place] [address], [place] [address] Jun, [facility] [address] [id number] [address] [place] [address], [place] [address] Jun, [facility] [address] [id number] [address] [place] [address], [place] [address] Jun, [facility] [address] [id number] [address] [place] [address], [place] [address] Jun, [facility] [address] [id number] [address] [place] [address], [place] [address] May, [facility] [address] [id number] [address] [place] [address], [place] [address] May, [facility] [address] [id number] [address] [place] [address], [place] [address] May, [facility] [address] [id number] [address] [place] [address], [place] [address] May, [facility] [address] [id number] [address] [place] [address], [place] [address] May, [facility] [address] [id number] [address] [place] [address], [place] [address] May, [facility] [address] [id number] [address] [place] [address], [place] [address] May, [facility] [address] [id number] [address] [place] [address], [place] [address] May, [facility] [address] [id number] [address] [place] [address], [place] [address] May, [facility] [address] [id number] [address] [place] [address], [place] [address] May, [facility] [address] [id number] [address] [place] [address], [place] [address] Mar, [facility] [address] [id number] [address] [place] [address], [place] [address] Mar, [facility] [address] [id number] [address] [place] [address], [place] [address] Jan, [facility] [address] [id number] [address] [place] [address], [place] [address] Jan, [facility] [address] [id number] [address] [place] [address], [place] [address] Jan, [facility] [address] [id number] [address] [place] [address], [place] [address] Jan, [facility] [address] [id number] [address] [place] [address], [place] [address] Jan, [facility] [address] [id number] [address] [place] [address], [place] [address] Jan, [facility] [address] [id number] [address] [place] [address], [place] [address] November, [facility] [address] [id number] [address] [place] [address], [place] [address] November, [facility] [address] [id number] [address] [place] [address], [place] [address] November, [facility] [address] [id number] [address] [place] [address], [place] [address] November, [facility] [address] [id number] [address] [place] [address], [place] [address] Oct, [facility] [address] [id number] [address] [place] [address], [place] [address] Oct, [facility] [address] [id number] [address] [place] [address], [place] [address] Oct, [facility] [address] [id number] [address] [place] [address], [place] [address] Oct, [facility] [address] [id number] [address] [place] [address], [place] [address] Sep, [facility] [address] [id number] [address] [place] [address], [place] [address] Sep, [facility] [address] [id number] [address] [place] [address], [place] [address] Sep, [facility] [address] [id number] [address] [place] [address], [place] [address] Sep, [facility] [address] [id number] [address] [place] [address], [place] [address] Aug, [facility] [address] [id number] [address] [place] [address], [place] [address] Aug, [facility] [address] [id number] [address] [place] [address], [place] [address] Aug, [facility] [address] [id number] [address] [place] [address], [place] [address] Aug, [facility] [address] [id number] [address] [place] [address], [place] [address] Aug, [facility] [address] [id number] [address] [place] [address], [place] [address] Aug, [facility] [address] [id number] [address] [place] [address], [place] [address] Jul, [facility] [address] [id number] [address] [place] [address], [place] [address] Jul, [facility] [address] [id number] [address] [place] [address], [place] [address] Jul, [facility] [address] [id number] [address] [place] [address], [place] [address] Jul, [facility] [address] [id number] [address] [place] [address], [place] [address] Jun, [facility] [address] [id number] [address] [place] [address], [place] [address] Jun, [facility] [address] [id number] [address] [place] [address], [place] [address] Jun, [facility] [address] [id number] [address] [place] [address], [place] [address] Jun, [facility] [address] [id number] [address] [place] [address], [place] [address] Jun, [facility] [address] [id number] [address] [place] [address], [place] [address] May, [facility] [address] [id number] [address] [place] [address], [place] [address] May, [facility] [address] [id number] [address] [place] [address] May, [facility] [address] [id number] [address] [place] [address] 19 May, 2013 [facility] [address] [id number] [address] [place] [address] 18 May, 2013 [facility] [address] [id number] [address] [place] [address] 18 May, 2013 [facility] [address] [id number] [address] [place] [address] 14 May, 2013 [facility] [address] [id number] [address] [place] [address] 12 May, 2013 [facility] [address] [id number] [address] [place] [address] 11 May, 2013 [facility] [address] [id number] [address] [place] [address] 10 May, 2013 [facility] [address] [id number] [address] [place] [id number] 10 May, 2013 [facility] [address] [id number] [address] [place] [address], [place] [address] 27 Apr, 2013 [facility] [address] [id number] [address] [place] [address], [place] [address] 19 Apr, 2013 [facility] [address] [id number] [address] [place] [address], [place] [address] 18 Jan, 2013 [facility] [address] [id number] [address] [place] [address], [place] [address] 16 Jan, 2013 [facility] [address] [id number] [address] [place] [address], [place] [address] 14 Dec, 2012 [facility] [address] [id number] [address] [place] [address], [place] [address] Dec, [facility] [address] [id number] [address] [place] [address], [place] [address] November, [facility] [address] [id number] [address] [place] [address], [place] [address] November, [facility] [address] [id number] [address] [place] [address], [place] [address] November, [facility] [address] [id number] [address] [place] [address], [place] [address] November, [facility] [address] [id number] [address] [place] [address], [place] [address] 24 Oct, 2012 [facility] [address] [id number] [address] [place] [address], [place] [address] 14 Sep, 2012 [facility] [address] [id number] [address] [place] [address], [place] [address] 13 Sep, 2012 [facility] [address] [id number] [address] [place] [address], [place] [address] 15 Sep, 2012 [facility] [address] [id number] [address] [place] [address], [place] [address] 14 Sep, 2012 [facility] [address] [id number] [address] [place] [address], [place] [address] 08 Sep, 2012 [facility] [address] [id number] [address] [place] [address], [place] [address] Sep, [facility] [address] [id number] [address] [place] [address], [place] [address] Aug, [facility] [address] [id number] [address] [place] [address], [place] [address] Aug, [facility] [address] [id number] [address] [place] [address], [place] [address] Jul, [facility] [address] [id number] [address] [place] [address], [place] [address] Jul, [facility] [address] [id number] [address] [place] [address], [place] [address] Jun, [facility] [address] [id number] [address] [place] [address], [place] [address] Jun, [facility] [address] [id number] [address] [place] [address], [place] [address] Jun, [facility] [address] [id number] [address] [place] [address], [place] [address] May, [facility] [address] [id number] [address] [place] [address], [place] [address] 31 May, 2012 [facility] [address] [id number] [address] [place] [address], [place] [address] 24 May, 2012 [facility] [address] [id number] [address] [place] [address], [place] [address] 24 May, 2012 [facility] [address] [id number] [address] [place] [address], [place] [address] 27 Apr, 2012 [facility] [address] [id number] [address] [place] [address], [place] [address] 15 Apr, 2012 [facility] [address] [id number] [address] [address] Sep, [facility] [address] [facility] [id number] [address] [place] [address] Mar, [facility] [address] [facility] [id number] [address] [place] [address] Jan, [facility] [address] [facility] [id number] [address] [place] [id number] Oct, [facility] [address] [facility] [id number] [address] [place] [address] May, IMMUNIZATIONS No Known Immunizations SOCIAL HISTORY Never Assessed REASON FOR VISIT PLAN OF CARE VITAL SIGNS Height 62 in 2013-06-23 Weight 130.06 lbs 2013-06-23 Temperature 97.7 degrees Fahrenheit 2013-06-23 Heart Rate 77 bpm 2013-06-23 Respiratory Rate 16 2013-06-23 Blood pressure systolic 115 mmHg 2013-06-23 Blood pressure diastolic 62 mmHg 2013-06-23 MEDICATIONS Unknown Medications RESULTS No Results PROCEDURES Procedure Date Ordered Result Body Site STREP A ASSAY W/OPTIC Jun 23, 2013 CULTURE, BACTERIA, OTHER Jun 23, 2013 INSTRUCTIONS MEDICATIONS ADMINISTERED No Known Medications MEDICAL (GENERAL) HISTORY Type Description Date Medical History asthma Medical History kidney stones Medical History HSV 1 Administrative Library Assistant Surgical History thumb broken age 11 Surgical History kidney stone removed 03/18/2016 Hospitalization History kidney stones/ dehydration/ UTI Dece mber 2013 Hospitalization History ER visit for knee injury March 2018
--- OUTSIDE RECORDS SUMMARY | 2020-01-11 23:00 | XMS REPORT ---
Author Author Cedric MCPHERSON Organization [facility] Address [address] [place] [address] Care Team Providers Care Meter Readers Supervisor Name Role Phone RONDA MCPHERSON Unavailable PROBLEMS Type Condition ICD9-CM Code BNN33-ZS Code Onset Dates Condition S tatus SNOMED Code Problem Other chronic pain G89.29 Active 8 0900796 Problem Seasonal allergies J30.2 Active 4 56648560 Problem Asthma, exercise induced J45.990 Activ e 38338849 Problem Recurrent kidney stones N20.0 Active [id number] ALLERGIES No Information ENCOUNTERS Encounter Location Date Diagnosis [facility] [address] [facility] [id number] [address] [place] [id number] Sep, [facility] [address] [facility] [id number] [address] [place] [address] Aug, Fever R50.9 and Flu-like sym ptoms R68.89 [facility] [address] [facility] [id number] [address] [place] [address] Jul, care in first trime ster Z34.91 [facility] [address] [facility] [id number] [address] [place] [address] Jul, [facility] [address] [facility] [id number] [address] [place] [address] Jul, Currently in first trimester with unknown gestational age Z34.91 and care in first trimester Z34.91 [facility] [address] [facility] [id number] [address] [place] [address] Jul, care in first trime ster Z34.91 [facility] [address] [facility] [id number] [address] [place] [address] Jul, Currently in first trimester with unknown gestational age Z34.91 and care, first in first trimester Z34.01 [facility] [address] [place] [id number] [address] [place] [address] May, [facility] [address] [place] [id number] [address] [place] [address] Apr, Sprain of left knee, unspeci fied ligament, initial encounter S83.92XA [place] [address] [address] Mar, [facility] [address] [address] Mar, [place] [address] [address] Mar, Injury of left knee, initial encounter S89.92XA and Acute pain of left knee M25.562 [facility] [address] [place] [id number] [place] [address] Dec, Seasonal allergies J30.2 ; C ough R05 and Gagging episode R19.8 [place] [address] [address] November, Sore throat J02.9 ; Otalgia, bilateral H92.03 and Allergic rhinitis, unspecified seasonality, unspecified trigger J30.9 [place] [address] [place] [id number] [place] [address] Oct, [place] [address] [address] Jun, Encounter for Depo-Provera c ontraception Z30.42 [place] [address] [place] [id number] [place] [address] Mar, Encounter for Depo-Provera c ontraception Z30.42 [place] [address] [place] [id number] [place] [address] Jan, test negative Z32. 02 [place] [address] [facility] [id number] [address] [place] [address] 15 Dec, 2016 Surveillance for contr ol, oral contraceptives Z30.41 and Encounter for Depo-Provera contraception Z30.42 [place] [address] [facility] [id number] [address] [place] [address] November, Well woman exam without gyne cological exam Z00.00 [place] [address] [facility] [id number] [address] [place] [address] Sep, Pharyngitis due to other org anism J02.8 [place] [address] [facility] [id number] [address] [place] [address] Aug, [place] [address] [place] [id number] [address] [place] [address] Aug, [place] [id number] [place] [id number] Aug, Vaginal candidiasis B37.3 [place] [address] [place] [id number] [address] [place] [address] Aug, Vaginal candidiasis B37.3 [place] [address] [place] [id number] [address] [place] [address] 14 Apr, 2016 Visit for TB skin test Z11.1 [place] [address] [place] [id number] [address] [place] [address] Mar, Visit for TB skin test Z11.1 and Screening for tuberculosis Z11.1 [place] [address] [facility] [id number] [address] [place] [address] Mar, Routine health maintenance Z 00.00 and Recurrent kidney stones N20.0 [place] [address] [facility] [id number] [address] [place] [address] Mar, Ingrown right greater toenai l L60.0 and Acute non-recurrent frontal sinusitis J01.10 [place] [address] [place] [address] Mar, Ingrowing right great toenai l L60.0 and Recurrent kidney stones N20.0 [place] [address] [place] [id number] [place] [address] Dec, Well woman exam without gyne cological exam Z00.00 and Encounter for surveillance of contraceptive pills Z30.41 [place] [address] [address] Oct, Surveillance for contr ol, oral contraceptives Z30.41 and Sore throat J02.9 [place] [address] [address] Sep, Renal calculi N20.0 [place] [address] [address] Aug, Surveillance of contraceptiv e injection Z30.42 ; Encounter for Depo-Provera contraception Z30.42 and Encounter for counseling regarding contraception Z30.9 [place] [address] [place] [address] Aug, Asthma, exercise induced J45 .990 [place] [id number] [place] [address] May, [facility] [id number] [place] [id number] Mar, Sports physical V70.3 ; Exer cise counseling V65.41 ; Dietary counseling V65.3 and Asthma 493.90 [place] [address] [place] [id number] [address] [place] [address] Mar, Encounter for contraceptive management V25.9 [place] [address] [place] [address] Jan, Routine child health exam V2 0.2 ; GARDASIL (HPV) DX V04.89 ; MENINGOCOCCAL DX V03.89 ; Dietary counseling and surveillance V65.3 ; Exercise counseling V65.41 and Recurrent nephrolithiasis 592.0 [facility] [address] [id number] [address] [place] [address] 17 Jan, [address] [facility] [address] [id number] [address] [place] [address] 08 Jan, 2015 Herpes simplex without menti on of complication 054.9 [facility] [address] [id number] [address] [place] [address] Dec, [facility] [address] [id number] [address] [place] [address] November, Encounter for contraceptive management V25.9 [facility] [address] [id number] [address] [place] [address] [address], [address] [facility] [address] [facility] [id number] [address] [place] [address] Oct, [facility] [address] [id number] [address] [place] [address] Sep, [facility] [address] [id number] [address] [place] [address] Sep, [facility] [address] [facility] [id number] [address] [place] [address] Sep, [facility] [address] [id number] [address] [place] [address] Sep, [facility] [address] [id number] [address] [place] [address] Aug, [facility] [address] [id number] [address] [place] [address] Aug, [facility] [address] [id number] [address] [place] [address] Aug, [facility] [address] [id number] [address] [place] [address] Aug, [facility] [address] [id number] [address] [place] [address], [place] [address] 16 Jul, 2014 [facility] [address] [id number] [address] [place] [address], [place] [address] Jul, [facility] [address] [id number] [address] [place] [address], [place] [address] Jul, [facility] [address] [id number] [address] [place] [address], [place] [address] Jul, [facility] [address] [id number] [address] [place] [address], [place] [address] Jul, [facility] [address] [id number] [address] [place] [address], [place] [address] Jul, [facility] [address] [id number] [address] [place] [address], [place] [address] Jul, [facility] [address] [id number] [address] [place] [address], [place] [address] Jul, [facility] [address] [id number] [address] [place] [address], [place] [address] Jul, [facility] [address] [id number] [address] [place] [address], [place] [address] Jun, [facility] [address] [id number] [address] [place] [address], [place] [address] Jun, [facility] [address] [id number] [address] [place] [address], [place] [address] Jun, [facility] [address] [id number] [address] [place] [address], [place] [address] Jun, [facility] [address] [id number] [address] [place] [address], [place] [address] Jun, [facility] [address] [id number] [address] [place] [address], [place] [address] Jun, [facility] [address] [id number] [address] [place] [address], [place] [address] Jun, [facility] [address] [id number] [address] [place] [address], [place] [address] Jun, [facility] [address] [id number] [address] [place] [address], [place] [address] Jun, [facility] [address] [id number] [address] [place] [address], [place] [address] Jun, [facility] [address] [id number] [address] [place] [address], [place] [address] Jun, [facility] [address] [id number] [address] [place] [address], [place] [address] Jun, [facility] [address] [id number] [address] [place] [address], [place] [address] Jun, [facility] [address] [id number] [address] [place] [address], [place] [address] Jun, [facility] [address] [id number] [address] [place] [address], [place] [address] May, [facility] [address] [id number] [address] [place] [address], [place] [address] May, [facility] [address] [id number] [address] [place] [address], [place] [address] May, [facility] [address] [id number] [address] [place] [address], [place] [address] May, [facility] [address] [id number] [address] [place] [address], [place] [address] May, [facility] [address] [id number] [address] [place] [address], [place] [address] May, [facility] [address] [id number] [address] [place] [address], [place] [address] May, [facility] [address] [id number] [address] [place] [address], [place] [address] May, [facility] [address] [id number] [address] [place] [address], [place] [address] May, [facility] [address] [id number] [address] [place] [address], [place] [address] May, [facility] [address] [id number] [address] [place] [address], [place] [address] Mar, [facility] [address] [id number] [address] [place] [address], [place] [address] Mar, [facility] [address] [id number] [address] [place] [address], [place] [address] Jan, [facility] [address] [id number] [address] [place] [address], [place] [address] Jan, [facility] [address] [id number] [address] [place] [address], [place] [address] Jan, [facility] [address] [id number] [address] [place] [address], [place] [address] Jan, [facility] [address] [id number] [address] [place] [address], [place] [address] Jan, [facility] [address] [id number] [address] [place] [address], [place] [address] Jan, [facility] [address] [id number] [address] [place] [address], [place] [address] November, [facility] [address] [id number] [address] [place] [address], [place] [address] November, [facility] [address] [id number] [address] [place] [address], [place] [address] November, [facility] [address] [id number] [address] [place] [address], [place] [address] November, [facility] [address] [id number] [address] [place] [address], [place] [address] Oct, [facility] [address] [id number] [address] [place] [address], [place] [address] Oct, [facility] [address] [id number] [address] [place] [address], [place] [address] Oct, [facility] [address] [id number] [address] [place] [address], [place] [address] Oct, [facility] [address] [id number] [address] [place] [address], [place] [address] Sep, [facility] [address] [id number] [address] [place] [address], [place] [address] Sep, [facility] [address] [id number] [address] [place] [address], [place] [address] Sep, [facility] [address] [id number] [address] [place] [address], [place] [address] Sep, [facility] [address] [id number] [address] [place] [address], [place] [address] Aug, [facility] [address] [id number] [address] [place] [address], [place] [address] Aug, [facility] [address] [id number] [address] [place] [address], [place] [address] Aug, [facility] [address] [id number] [address] [place] [address], [place] [address] Aug, [facility] [address] [id number] [address] [place] [address], [place] [address] Aug, [facility] [address] [id number] [address] [place] [address], [place] [address] Aug, [facility] [address] [id number] [address] [place] [address], [place] [address] Jul, [facility] [address] [id number] [address] [place] [address], [place] [address] Jul, [facility] [address] [id number] [address] [place] [address], [place] [address] Jul, [facility] [address] [id number] [address] [place] [address], [place] [address] Jul, [facility] [address] [id number] [address] [place] [address], [place] [address] Jun, [facility] [address] [id number] [address] [place] [address], [place] [address] Jun, [facility] [address] [id number] [address] [place] [address], [place] [address] Jun, [facility] [address] [id number] [address] [place] [address], [place] [address] Jun, [facility] [address] [id number] [address] [place] [address], [place] [address] Jun, [facility] [address] [id number] [address] [place] [address], [place] [address] May, [facility] [address] [id number] [address] [place] [address], [place] [address] May, [facility] [address] [id number] [address] [place] [id number] May, [facility] [address] [id number] [address] [place] [address] 19 May, 2013 [facility] [address] [id number] [address] [place] [address] 18 May, 2013 [facility] [address] [id number] [address] [place] [id number] 18 May, 2013 [facility] [address] [id number] [address] [place] [address] 14 May, 2013 [facility] [address] [id number] [address] [place] [address] 12 May, 2013 [facility] [address] [id number] [address] [place] [address] 11 May, 2013 [facility] [address] [id number] [address] [place] [address] 10 May, 2013 [facility] [address] [id number] [address] [place] [address] 10 May, 2013 [facility] [address] [id number] [address] [place] [address], [place] [address] 27 Apr, 2013 [facility] [address] [id number] [address] [place] [address], [place] [address] 19 Apr, 2013 [facility] [address] [id number] [address] [place] [address], [place] [address] 18 Jan, 2013 [facility] [address] [id number] [address] [place] [address], [place] [address] 16 Jan, 2013 [facility] [address] [id number] [address] [place] [address], [place] [address] 14 Dec, 2012 [facility] [address] [id number] [address] [place] [address], [place] [address] Dec, [facility] [address] [id number] [address] [place] [address], [place] [address] November, [facility] [address] [id number] [address] [place] [address], [place] [address] November, [facility] [address] [id number] [address] [place] [address], [place] [address] November, [facility] [address] [id number] [address] [place] [address], [place] [address] November, [facility] [address] [id number] [address] [place] [address], [place] [address] 24 Oct, 2012 [facility] [address] [id number] [address] [place] [address], [place] [address] 14 Sep, 2012 [facility] [address] [id number] [address] [place] [address], [place] [address] 13 Sep, 2012 [facility] [address] [id number] [address] [place] [address], [place] [address] 15 Sep, 2012 [facility] [address] [id number] [address] [place] [address], [place] [address] 14 Sep, 2012 [facility] [address] [id number] [address] [place] [address], [place] [address] 08 Sep, 2012 [facility] [address] [id number] [address] [place] [address], [place] [address] Sep, [facility] [address] [id number] [address] [place] [address], [place] [address] Aug, [facility] [address] [id number] [address] [place] [address], [place] [address] Aug, [facility] [address] [id number] [address] [place] [address], [place] [address] Jul, [facility] [address] [id number] [address] [place] [address], [place] [address] Jul, [facility] [address] [id number] [address] [place] [address], [place] [address] Jun, [facility] [address] [id number] [address] [place] [address], [place] [address] Jun, [facility] [address] [id number] [address] [place] [address], [place] [id number] Jun, [facility] [address] [id number] [address] [place] [address], [place] [id number] May, [facility] [address] [id number] [address] [place] [address], [place] [id number] 31 May, 2012 [facility] [address] [id number] [address] [place] [address], [place] [id number] 24 May, 2012 [facility] [address] [id number] [address] [place] [address], [place] [phone] 24 May, 2012 [facility] [address] [id number] [address] [place] [address], [place] [id number] 27 Apr, 2012 [facility] [address] [id number] [address] [place] [address], [place] [id number] 15 Apr, 2012 [facility] [address] [id number] [address] [address] Sep, [facility] [address] [facility] [id number] [address] [place] [phone] Mar, [facility] [address] [facility] [id number] [address] [place] [phone] Jan, [facility] [address] [facility] [id number] [address] [place] [phone] Oct, [facility] [address] [facility] [id number] [address] [place] [phone] May, IMMUNIZATIONS No Known Immunizations SOCIAL HISTORY Never Assessed REASON FOR VISIT PLAN OF CARE VITAL SIGNS Height 62.5 in 2014-06-13 Weight 148.31 lbs 2014-06-13 Temperature 97.4 degrees Fahrenheit 2014-06-13 Heart Rate 101 bpm 2014-06-13 Respiratory Rate 20 2014-06-13 Blood pressure systolic 148 mmHg 2014-06-13 Blood pressure diastolic 83 mmHg 2014-06-13 MEDICATIONS Unknown Medications RESULTS No Results PROCEDURES No Known procedures INSTRUCTIONS MEDICATIONS ADMINISTERED No Known Medications MEDICAL (GENERAL) HISTORY Type Description Date Medical History asthma Medical History kidney stones 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
--- OUTSIDE RECORDS SUMMARY | 2020-01-11 23:01 | XMS REPORT ---
Author Author Cedric Garcia Doctor Organization [facility] Address Unknown Phone Unavailable Care Team Providers Care Animal Pathologist Name Role Phone Migration, Doctor Unavailable Unavailable PROBLEMS Type Condition ICD9-CM Code [id number] Code Onset Dates Condition S tatus SNOMED Code Problem Other chronic pain G89.29 Active 8 4149961 Problem Seasonal allergies J30.2 Active 4 41189115 Problem Asthma, exercise induced J45.990 Activ e [id number] Problem Recurrent kidney stones N20.0 Active 16069948 ALLERGIES No Information ENCOUNTERS Encounter Location Date Diagnosis [facility] [address] [facility] [id number] [address] [place] [address] Aug, Fever R50.9 and Flu-like sym ptoms R68.89 [facility] [id number] [place] [address] Jul, care in first trimester Z34.91 [facility] [address] [address] Jul, [facility] [address] [address] Jul, Currently in first trimester wi th unknown gestational age Z34.91 and care in first trimester Z34.91 [facility] [address] [address] Jul, care in first trimester Z34.91 [facility] [address] [address] Jul, Currently in first trimester wi th unknown gestational age Z34.91 and care, first in first trimester Z34.01 [facility] [address] [address] May, [facility] [address] [address] Apr, Sprain of left knee, unspecified ligamen t, initial encounter S83.92XA [place] [address] [address] Mar, [facility] [address] [address] Mar, [place] [address] [address] Mar, Injury of left knee, initial encounter S 89.92XA and Acute pain of left knee M25.562 [facility] [address] [facility] [id number] [address] [place] [address] Dec, Seasonal allergies J30.2 ; C ough R05 and Gagging episode R19.8 [place] [address] [address] November, Sore throat J02.9 ; Otalgia, bilateral H 92.03 and Allergic rhinitis, unspecified seasonality, unspecified trigger J30.9 [place] [address] [address] Oct, [place] [address] [address] Jun, Encounter for Depo-Provera contraception Z30.42 [place] [address] [address] Mar, Encounter for Depo-Provera contraception Z30.42 [place] [address] [address] Jan, test negative Z32.02 [place] [address] [address] Dec, Surveillance for control, oral con traceptives Z30.41 and Encounter for Depo-Provera contraception Z30.42 [place] [address] [address] November, Well woman exam without gynecological ex am Z00.00 [place] [address] [address] Sep, Pharyngitis due to other organism J02.8 [place] [address] [address] Aug, [place] [address] [address] Aug, [place] [address] [address] Aug, Vaginal candidiasis B37.3 [place] [address] [address] Aug, Vaginal candidiasis B37.3 [place] [address] [address] 14 Apr, 2016 Visit for TB skin test Z11.1 [place] [address] [address] Mar, Visit for TB skin test Z11.1 and Screeni ng for tuberculosis Z11.1 [place] [address] [address] Mar, Routine health maintenance Z00.00 and Re current kidney stones N20.0 [place] [address] [address] Mar, Ingrown right greater toenail L60.0 and Acute non-recurrent frontal sinusitis J01.10 [place] [address] [address] Mar, Ingrowing right great toenail L60.0 and Recurrent kidney stones N20.0 [place] [address] [address] Dec, Well woman exam without gynecological ex am Z00.00 and Encounter for surveillance of contraceptive pills Z30.41 [place] [address] [address] Oct, Surveillance for control, oral con traceptives Z30.41 and Sore throat J02.9 [place] [address] [address] Sep, Renal calculi N20.0 [place] [address] [address] Aug, Surveillance of contraceptive injection Z30.42 ; Encounter for Depo- Provera contraception Z30.42 and Encounter for counseling regarding contraception Z30.9 [place] [address] [address] Aug, Asthma, exercise induced J45.[address] [address] May, [facility] [place] [address] [id number] [id number] Mar, Sports physical V70.3 ; Exercise dependency counselor ing V65.41 ; Dietary counseling V65.3 and Asthma 493.[address] [address] Mar, Encounter for contraceptive management V 25.[address] [address] Jan, Routine child health exam V20.2 ; GARDAS [place] (HPV) DX V04.89 ; MENINGOCOCCAL DX V03.89 ; Dietary counseling and surveillance V65.3 ; Exercise counseling V65.41 and Recurrent nephrolithiasis 592.0 [place] [address] [address] Jan, Kidney stone 592.[address] [address] Jan, Herpes simplex without mention of compli cation 054.[address] [address] Dec, [address] [address] November, Encounter for contraceptive management V 25.9 [facility] [address] [id number] [place] [address] 14 Oct, 2014 [facility] [address] [id number] [place] [address] Oct, [facility] [address] [id number] [place] [address] Sep, [facility] [address] [id number] [place] [address] Sep, [facility] [address] [id number] [place] [address] Sep, [facility] [address] [id number] [place] [address] Sep, [facility] [id number] [place] [address] Aug, [facility] [id number] [place] [address] Aug, [facility] [address] [id number] [place] [address] Aug, [facility] [address] [id number] [place] [address] Aug, [facility] [address] [id number] [place] [address] Jul, [facility] [address] [id number] [place] [address] Jul, [facility] [address] [id number] [place] [address] Jul, [facility] [id number] [place] [address] Jul, [facility] [address] [id number] [place] [address] Jul, [facility] [address] [id number] [place] [address] Jul, [facility] [place] [facility] [address] [id number] [place] [address] Jul, [facility] [place] [facility] [address] [id number] [place] [address] Jul, [facility] [place] [facility] [address] [id number] [place] [address] Jul, [facility] [place] [facility] [address] [id number] [place] [address] Jun, [facility] [place] [facility] [address] [id number] [place] [address] Jun, [facility] [place] [facility] [address] [id number] [place] [address] Jun, [facility] [place] [facility] [address] [id number] [place] [address] Jun, [facility] [place] [facility] [address] [id number] [place] [address] Jun, [facility] [place] [facility] [address] [id number] [place] [address] Jun, [facility] [place] [facility] [address] [id number] [place] [address] Jun, [facility] [place] [facility] [address] [id number] [place] [address] Jun, [facility] [place] [facility] [address] [id number] [place] [address] Jun, [facility] [place] [facility] [address] [id number] [place] [address] Jun, [facility] [place] [facility] [address] [id number] [place] [address] Jun, [facility] [place] [facility] [address] [id number] [place] [address] Jun, [facility] [place] [facility] [address] [id number] [place] [address] Jun, [facility] [place] [facility] [address] [id number] [place] [address] Jun, [facility] [place] [facility] [address] [facility] [id number] [place] [address] May, [facility] [place] [facility] [address] [facility] [id number] [place] [address] May, [facility] [place] [facility] [address] [id number] [place] [address] May, [facility] [place] [facility] [address] [facility] [id number] [place] [address] May, [facility] [place] [facility] [address] [facility] [id number] [place] [address] May, [facility] [place] [facility] [address] [id number] [place] [address] May, 2013 [facility] [place] [facility] [address] [id number] [place] [address] May, [facility] [place] [facility] [address] [id number] [place] [address] May, 2013 [facility] [place] [facility] [address] [id number] [place] [address] May, [facility] [place] [facility] [address] [id number] [place] [address] May, [facility] [place] [facility] [address] [id number] [place] [address] Mar, [facility] [place] [facility] [address] [id number] [place] [address] Mar, [facility] [place] [facility] [address] [facility] [id number] [place] [address] Jan, 2013 [facility] [place] [facility] [address] [facility] [id number] [place] [address] Jan, 2013 [facility] [place] [facility] [address] [id number] [place] [address] Jan, 2013 [facility] [place] [facility] [address] [id number] [place] [address] Jan, 2013 [facility] [place] [facility] [address] [id number] [place] [address] Jan, [facility] [place] [facility] [address] [id number] [place] [address] Jan, [facility] [place] [facility] [address] [id number] [place] [address] November, [facility] [place] [facility] [address] [id number] [place] [address] November, [facility] [place] [facility] [address] [id number] [place] [address] November, [facility] [place] [facility] [address] [id number] [place] [address] November, [facility] [place] [facility] [address] [id number] [place] [address] Oct, [facility] [place] [facility] [address] [id number] [place] [address] Oct, [facility] [place] [facility] [address] [id number] [place] [address] Oct, [facility] [place] [facility] [address] [id number] [place] [address] Oct, [facility] [place] [facility] [address] [id number] [place] [address] Sep, [facility] [place] [facility] [address] [id number] [place] [address] Sep, [facility] [place] [facility] [address] [id number] [place] [address] Sep, [facility] [place] [facility] [address] [id number] [place] [address] Sep, [facility] [place] [facility] [address] [id number] [place] [address] Aug, [facility] [place] [facility] [address] [id number] [place] [address] Aug, [facility] [place] [facility] [address] [id number] [place] [address] Aug, [facility] [place] [facility] [address] [id number] [place] [address] Aug, [facility] [place] [facility] [address] [id number] [place] [address] Aug, [facility] [place] [facility] [address] [id number] [place] [address] Aug, [facility] [place] [facility] [address] [id number] [place] [address] Jul, [facility] [place] [facility] [address] [id number] [place] [address] Jul, [facility] [place] [facility] [address] [id number] [place] [address] Jul, [facility] [place] [facility] [address] [id number] [place] [address] Jul, [facility] [place] [facility] [id number] [place] [address] Jun, [facility] [place] [facility] [address] [id number] [place] [address] Jun, [facility] [place] [facility] [address] [id number] [place] [address] Jun, [facility] [place] [facility] [address] [id number] [place] [address] Jun, [facility] [place] [facility] [address] [id number] [place] [address] Jun, [facility] [place] [facility] [address] [id number] [place] [address] May, [facility] [place] [facility] [address] [id number] [place] [address] May, [facility] [place] [facility] [id number] [place] [address] May, [facility] [place] [facility] [address] [id number] [place] [address] May, [facility] [place] [facility] [address] [id number] [place] [address] 18 May, 2013 [facility] [place] [facility] [address] [facility] [id number] [place] [address] 18 May, 2013 [facility] [place] [facility] [address] [facility] [id number] [place] [address] 14 May, 2013 [facility] [place] [facility] [address] [id number] [place] [address] 12 May, 2013 [facility] [place] [facility] [address] [id number] [place] [address] 11 May, 2013 [facility] [place] [facility] [address] [facility] [id number] [place] [address] 10 May, 2013 [facility] [place] [facility] [address] [id number] [place] [address] 10 May, 2013 [facility] [place] [facility] [address] [id number] [place] [address] 27 Apr, 2013 [facility] [place] [facility] [address] [id number] [place] [address] 19 Apr, 2013 [facility] [place] [facility] [address] [facility] [id number] [place] [address] 18 Jan, 2013 [facility] [place] [facility] [address] [id number] [place] [address] Jan, [facility] [place] [facility] [address] [id number] [place] [address] Dec, [facility] [place] [facility] [address] [id number] [place] [address] Dec, [facility] [place] [facility] [address] [facility] [id number] [place] [address] November, [facility] [place] [facility] [address] [facility] [id number] [place] [address] November, [facility] [place] [facility] [address] [id number] [place] [address] November, [facility] [place] [facility] [address] [id number] [place] [address] November, [facility] [place] [facility] [address] [id number] [place] [address] 24 Oct, 2012 [facility] [place] [facility] [address] [id number] [place] [address] 14 Sep, 2012 [facility] [place] [facility] [address] [id number] [place] [address] Sep, [facility] [place] [facility] [address] [id number] [place] [address] 15 Sep, 2012 [facility] [place] [facility] [address] [id number] [place] [address] 14 Sep, 2012 [facility] [place] [facility] [address] [id number] [place] [address] 08 Sep, 2012 [facility] [place] [facility] [address] [id number] [place] [address] 04 Sep, 2012 [facility] [place] [facility] [id number] [place] [address] Aug, [facility] [place] [facility] [id number] [place] [address] Aug, [facility] [place] [facility] [address] [id number] [place] [address] Jul, [facility] [place] [facility] [id number] [place] [address] Jul, [facility] [place] [facility] [id number] [place] [address] Jun, [facility] [place] [facility] [id number] [place] [address] Jun, [facility] [place] [facility] [address] [id number] [place] [address] 15 Jun, 2012 [facility] [place] [facility] [id number] [place] [address] 31 May, 2012 [facility] [place] [facility] [address] [id number] [place] [address] May, [facility] [place] [facility] [id number] [place] [address] May, [facility] [address] [id number] [place] [address] May, [facility] [id number] [place] [address] Apr, [facility] [address] [id number] [place] [address] Apr, [facility] [id number] [place] [address] Sep, [facility] [id number] [place] [address] Mar, [facility] [id number] [place] [address] Jan, [facility] [address] [id number] [place] [address] Oct, [facility] [id number] [place] [address] May, IMMUNIZATIONS No Known Immunizations SOCIAL HISTORY Never Assessed REASON FOR VISIT PLAN OF CARE VITAL SIGNS MEDICATIONS No Known Medications RESULTS No Results PROCEDURES No Known procedures INSTRUCTIONS MEDICATIONS ADMINISTERED No Known Medications MEDICAL (GENERAL) HISTORY Type Description Date Medical History asthma Medical History kidney stones Medical History HSV 1 Die Maker Surgical History thumb broken age 11 Surgical History kidney stone removed 03/18/2016 Hospitalization History kidney stones/ dehydration/ UTI Dece mber 2013 Hospitalization History ER visit for knee injury March 2018
--- OUTSIDE RECORDS SUMMARY | 2020-01-11 23:01 | XMS REPORT ---
Author Author Cedric Garcia Doctor Organization [facility] Address Unknown Phone Unavailable Care Team Providers Care Toolsmith Name Role Phone Migration, Doctor Unavailable Unavailable PROBLEMS Type Condition ICD9-CM Code NQZ90-MR Code Onset Dates Condition S tatus SNOMED Code Problem Other chronic pain G89.29 Active 8 4069501 Problem Seasonal allergies J30.2 Active 4 61183683 Problem Asthma, exercise induced J45.990 Activ e 01486886 Problem Recurrent kidney stones N20.0 Active [id number] ALLERGIES No Information ENCOUNTERS Encounter Location Date Diagnosis [place] [address] [address] Oct, [place] [address] [address] Sep, [facility] [address] [facility] [id number] [address] [place] [address] Aug, Fever R50.9 and Flu-like sym ptoms R68.89 [place] [address] [address] Jul, care in first trimester Z34.91 [place] [address] [address] Jul, [place] [address] [address] Jul, Currently in first trimester wi th unknown gestational age Z34.91 and care in first trimester Z34.91 [place] [address] [address] Jul, care in first trimester Z34.91 [place] [address] [address] Jul, Currently in first trimester wi th unknown gestational age Z34.91 and care, first in first trimester Z34.01 [place] [address] [address] May, [place] [address] [address] Apr, Sprain of left knee, unspecified ligamen t, initial encounter S83.92XA [place] [address] [address] Mar, [place] [address] [address] Mar, [place] [address] [address] Mar, Injury of left knee, initial encounter S 89.92XA and Acute pain of left knee M25.562 [facility] [address] [facility] [id number] [address] [place] [address] Dec, Seasonal allergies J30.2 ; C ough R05 and Gagging episode R19.8 [place] [address] [address] November, Sore throat J02.9 ; Otalgia, bilateral H 92.03 and Allergic rhinitis, unspecified seasonality, unspecified trigger J30.9 [place] [address] [address] Oct, [place] [address] [address] Jun, Encounter for Depo-Provera contraception Z30.42 [place] [address] [address] Mar, Encounter for Depo-Provera contraception Z30.42 [place] [address] [address] Jan, test negative Z32.02 [place] [address] [address] 15 Thierno, 2017 Surveillance for control, oral con traceptives Z30.41 and Encounter for Depo-Provera contraception Z30.42 [place] [address] [address] November, Well woman exam without gynecological ex am Z00.00 [place] [address] [address] 23 Sep, 2016 Pharyngitis due to other organism J02.8 [place] [address] [address] Aug, [place] [address] [address] Aug, [place] [address] [address] Aug, Vaginal candidiasis B37.3 [place] [address] [address] Aug, Vaginal candidiasis B37.3 [place] [address] [address] 14 Apr, 2016 Visit for TB skin test Z11.1 [place] [address] [address] 31 Mar, 2016 Visit for TB skin test Z11.1 and Screeni ng for tuberculosis Z11.1 [place] [address] [address] 16 Mar, 2016 Routine health maintenance Z00.00 and Re current kidney stones N20.0 [place] [address] [address] 05 Mar, 2016 Ingrown right greater toenail L60.0 and Acute non-recurrent frontal sinusitis J01.10 [place] [address] [address] 03 Mar, 2016 Ingrowing right great toenail L60.0 and Recurrent kidney stones N20.0 [place] [address] [address] Dec, Well woman exam without gynecological ex am Z00.00 and Encounter for surveillance of contraceptive pills Z30.[address] [address] Oct, Surveillance for control, oral con traceptives Z30.41 and Sore throat J02.[address] [address] Sep, Renal calculi N20.[address] [address] Aug, Surveillance of contraceptive injection Z30.42 ; Encounter for Depo- Provera contraception Z30.42 and Encounter for counseling regarding contraception Z30.[address] [address] Aug, Asthma, exercise induced J45.[address] [address] May, [facility] [address] [address] Mar, Sports physical V70.3 ; Exercise counselor aid ing V65.41 ; Dietary counseling V65.3 and Asthma 493.[address] [address] Mar, Encounter for contraceptive management V 25.[address] [address] Jan, Routine child health exam V20.2 ; GARD[place] (HPV) DX V04.89 ; MENINGOCOCCAL DX V03.89 ; Dietary counseling and surveillance V65.3 ; Exercise counseling V65.41 and Recurrent nephrolithiasis 592.[address] [address] Jan, Kidney stone 592.[address] [address] Jan, Herpes simplex without mention of compli cation 054.9 [facility] [address] [id number] [place] [address] 07 Dec, 2014 [facility] [address] [place] [id number] [place] [address] November, Encounter for contraceptive management V 25.9 [facility] [address] [place] [id number] [place] [address] 14 Oct, 2014 [facility] [address] [place] [id number] [place] [address] 13 Oct, 2014 [facility] [address] [place] [id number] [place] [address] Sep, [facility] [address] [place] [id number] [place] [address] Sep, [facility] [address] [address] Sep, [facility] [address] [place] [id number] [place] [address] Sep, [facility] [address] [place] [id number] [place] [address] Aug, [facility] [address] [place] [id number] [place] [address] Aug, [facility] [address] [place] [id number] [place] [address] Aug, [facility] [address] [place] [id number] [place] [address] Aug, [facility] [address] [place] [id number] [place] [address] Jul, [facility] [address] [place] [id number] [place] [address] Jul, [facility] [address] [place] [id number] [place] [address] Jul, [facility] [address] [place] [id number] [place] [address] Jul, [facility] [place] [facility] [address] [id number] [place] [address] Jul, [facility] [place] [facility] [address] [id number] [place] [address] Jul, [facility] [place] [facility] [address] [id number] [place] [address] Jul, [facility] [place] [facility] [address] [id number] [place] [address] Jul, [facility] [place] [facility] [address] [id number] [place] [address] Jul, [facility] [place] [facility] [address] [id number] [place] [address] Jun, [facility] [place] [facility] [address] [id number] [place] [address] Jun, [facility] [place] [facility] [address] [id number] [place] [address] Jun, [facility] [place] [facility] [address] [id number] [place] [address] Jun, [facility] [place] [facility] [address] [id number] [place] [address] Jun, [facility] [place] [facility] [address] [id number] [place] [address] Jun, [facility] [place] [facility] [address] [id number] [place] [address] Jun, [facility] [place] [facility] [address] [id number] [place] [address] Jun, [facility] [place] [facility] [address] [id number] [place] [address] Jun, [facility] [place] [facility] [address] [id number] [place] [address] Jun, [facility] [place] [facility] [address] [id number] [place] [address] Jun, [facility] [place] [facility] [address] [id number] [place] [address] Jun, 2013 [facility] [place] [facility] [address] [facility] [id number] [place] [address] Jun, [facility] [place] [facility] [address] [facility] [id number] [place] [address] Jun, [facility] [place] [facility] [address] [id number] [place] [address] May, [facility] [place] [facility] [address] [id number] [place] [address] 15 May, 2014 [facility] [place] [facility] [address] [facility] [id number] [place] [address] May, [facility] [place] [facility] [address] [id number] [place] [address] May, [facility] [place] [facility] [address] [id number] [place] [address] May, 2013 [facility] [place] [facility] [address] [id number] [place] [address] May, 2013 [facility] [place] [facility] [address] [id number] [place] [address] May, [facility] [place] [facility] [address] [id number] [place] [address] May, 2013 [facility] [place] [facility] [address] [id number] [place] [address] May, [facility] [place] [facility] [address] [id number] [place] [address] May, [facility] [place] [facility] [address] [facility] [id number] [place] [address] Mar, [facility] [place] [facility] [address] [facility] [id number] [place] [address] Mar, [facility] [place] [facility] [address] [id number] [place] [address] Jan, [facility] [place] [facility] [address] [id number] [place] [address] Jan, [facility] [place] [facility] [address] [id number] [place] [address] Jan, [facility] [place] [facility] [address] [id number] [place] [address] Jan, [facility] [place] [facility] [address] [id number] [place] [address] Jan, [facility] [place] [facility] [address] [id number] [place] [address] Jan, [facility] [place] [facility] [address] [id number] [place] [address] November, [facility] [place] [facility] [address] [facility] [id number] [place] [address] November, [facility] [place] [facility] [address] [id number] [place] [address] November, [facility] [place] [facility] [address] [id number] [place] [address] November, [facility] [place] [facility] [address] [id number] [place] [address] Oct, [facility] [place] [facility] [address] [id number] [place] [address] Oct, [facility] [place] [facility] [address] [id number] [place] [address] Oct, [facility] [place] [facility] [address] [id number] [place] [address] Oct, [facility] [place] [facility] [address] [id number] [place] [address] Sep, [facility] [place] [facility] [address] [id number] [place] [address] Sep, [facility] [place] [facility] [address] [id number] [place] [address] Sep, [facility] [place] [facility] [address] [id number] [place] [address] Sep, [facility] [place] [facility] [address] [id number] [place] [address] Aug, [facility] [place] [facility] [address] [id number] [place] [address] Aug, [facility] [place] [facility] [address] [id number] [place] [address] Aug, [facility] [place] [facility] [address] [id number] [place] [address] Aug, [facility] [place] [facility] [address] [id number] [place] [address] Aug, [facility] [place] [facility] [address] [id number] [place] [address] Aug, [facility] [place] [facility] [address] [id number] [place] [address] Jul, [facility] [place] [facility] [address] [id number] [place] [address] Jul, [facility] [place] [facility] [address] [place] [id number] [place] [address] Jul, [facility] [place] [facility] [address] [id number] [place] [address] Jul, [facility] [place] [facility] [address] [id number] [place] [address] Jun, [facility] [place] [facility] [address] [id number] [place] [address] Jun, [facility] [place] [facility] [address] [id number] [place] [address] Jun, [facility] [place] [facility] [address] [id number] [place] [address] Jun, [facility] [place] [facility] [address] [id number] [place] [address] Jun, [facility] [place] [facility] [address] [place] [id number] [place] [address] May, [facility] [place] [facility] [address] [id number] [place] [address] May, [facility] [place] [facility] [address] [id number] [place] [address] 19 May, 2013 [facility] [place] [facility] [address] [facility] [id number] [place] [address] 19 May, 2013 [facility] [place] [facility] [address] [facility] [id number] [place] [address] 18 May, 2013 [facility] [place] [facility] [address] [id number] [place] [address] 18 May, 2013 [facility] [place] [facility] [address] [id number] [place] [address] 14 May, 2013 [facility] [place] [facility] [address] [facility] [id number] [place] [address] 12 May, 2013 [facility] [place] [facility] [address] [id number] [place] [address] 11 May, 2013 [facility] [place] [facility] [address] [id number] [place] [address] 10 May, 2013 [facility] [place] [facility] [address] [id number] [place] [address] 10 May, 2013 [facility] [place] [facility] [address] [facility] [id number] [place] [address] 27 Apr, 2013 [facility] [place] [facility] [address] [id number] [place] [address] 19 Apr, 2013 [facility] [place] [facility] [address] [id number] [place] [address] 18 Jan, 2013 [facility] [place] [facility] [address] [id number] [place] [address] 16 Jan, 2013 [facility] [place] [facility] [address] [facility] [id number] [place] [address] Dec, [facility] [place] [facility] [address] [facility] [id number] [place] [address] Dec, [facility] [place] [facility] [address] [id number] [place] [address] November, [facility] [place] [facility] [address] [id number] [place] [address] November, [facility] [place] [facility] [address] [id number] [place] [address] November, [facility] [place] [facility] [address] [id number] [place] [address] November, [facility] [place] [facility] [address] [id number] [place] [address] Oct, [facility] [place] [facility] [address] [id number] [place] [address] Sep, [facility] [place] [facility] [address] [id number] [place] [address] Sep, [facility] [place] [facility] [address] [id number] [place] [address] 15 Sep, 2012 [facility] [place] [facility] [address] [id number] [place] [address] 14 Sep, 2012 [facility] [place] [facility] [address] [place] [id number] [place] [address] 08 Sep, 2012 [facility] [place] [facility] [address] [place] [id number] [place] [address] 04 Sep, 2012 [facility] [place] [facility] [address] [id number] [place] [address] Aug, [facility] [place] [facility] [address] [id number] [place] [address] Aug, [facility] [place] [facility] [address] [place] [id number] [place] [address] Jul, [facility] [place] [facility] [address] [id number] [place] [address] Jul, [facility] [place] [facility] [address] [id number] [place] [address] Jun, [facility] [place] [facility] [address] [place] [id number] [place] [address] Jun, [facility] [place] [facility] [address] [id number] [place] [address] 15 Jun, 2012 [facility] [place] [facility] [address] [place] [address] [id number] [place] [address] May, [facility] [address] [id number] [place] [address] May, [facility] [id number] [place] [address] May, [facility] [address] [id number] [place] [address] May, [facility] [id number] [place] [address] Apr, [facility] [id number] [place] [address] Apr, [facility] [id number] [place] [address] Sep, [facility] [address] [id number] [place] [address] Mar, [facility] [id number] [place] [address] Jan, [facility] [address] [id number] [place] [address] Oct, [facility] [id number] [place] [address] May, IMMUNIZATIONS No Known Immunizations SOCIAL HISTORY Never Assessed REASON FOR VISIT PLAN OF CARE VITAL SIGNS MEDICATIONS Unknown Medications RESULTS No Results PROCEDURES No Known procedures INSTRUCTIONS MEDICATIONS ADMINISTERED No Known Medications MEDICAL (GENERAL) HISTORY Type Description Date Medical History asthma Medical History kidney stones Medical History HSV 1 [facility] Surgical History thumb broken age 11 Surgical History kidney stone removed 03/18/2016 Hospitalization History kidney stones/ dehydration/ UTI Dece mber 2013 Hospitalization History ER visit for knee injury March 2018
--- OUTSIDE RECORDS SUMMARY | 2020-01-11 23:01 | XMS REPORT ---
Author Author Cedric MCPHERSON Organization [facility] Address [address] [place] [address] Care Team Providers Care Hardware Trainer Name Role Phone RONDA MCPHERSON Unavailable PROBLEMS Type Condition ICD9-CM Code UTH15-RO Code Onset Dates Condition S tatus SNOMED Code Problem Other chronic pain G89.29 Active 8 3903732 Problem Seasonal allergies J30.2 Active 4 51357832 Problem Asthma, exercise induced J45.990 Activ e 47000369 Problem Recurrent kidney stones N20.0 Active [id number] ALLERGIES No Information ENCOUNTERS Encounter Location Date Diagnosis [facility] [address] [id number] [address] Aug, Fever R50.9 and Flu-like sym ptoms R68.89 [facility] [address] [address] Jul, care in first trimester Z34.91 [facility] [address] [address] Jul, [place] [address] [address] Jul, Currently in first trimester wi th unknown gestational age Z34.91 and care in first trimester Z34.91 [facility] [address] [address] 13 Jul, 2019 care in first trimester Z34.91 [place] [address] [address] Jul, Currently in first trimester wi th unknown gestational age Z34.91 and care, first in first trimester Z34.01 [place] [address] [address] May, [facility] [address] [address] Apr, Sprain of left knee, unspecified ligamen t, initial encounter S83.92XA [place] [address] [address] Mar, [place] [address] [address] Mar, [place] [address] [address] Mar, Injury of left knee, initial encounter S 89.92XA and Acute pain of left knee M25.562 [facility] [address] [id number] [place] [address] Dec, Seasonal allergies J30.2 ; C ough R05 and Gagging episode R19.8 [place] [address] [address] November, Sore throat J02.9 ; Otalgia, bilateral H 92.03 and Allergic rhinitis, unspecified seasonality, unspecified trigger J30.9 [place] [address] [address] Oct, [place] [address] [address] Jun, Encounter for Depo-Provera contraception Z30.42 [place] [address] [address] Mar, Encounter for Depo-Provera contraception Z30.42 [place] [address] [address] Jan, test negative Z32.02 [place] [address] [address] Dec, Surveillance for control, oral con traceptives Z30.41 and Encounter for Depo-Provera contraception Z30.42 [place] [address] [address] November, Well woman exam without gynecological ex am Z00.00 [place] [address] [address] Sep, Pharyngitis due to other organism J02.8 [place] [address] [address] Aug, [place] [address] [address] Aug, [place] [address] [address] Aug, Vaginal candidiasis B37.3 [place] [address] [address] Aug, Vaginal candidiasis B37.3 [place] [address] [address] 14 Apr, 2016 Visit for TB skin test Z11.1 [place] [address] [address] 31 Mar, 2016 Visit for TB skin test Z11.1 and Screeni ng for tuberculosis Z11.1 [place] [address] [address] 16 Mar, 2016 Routine health maintenance Z00.00 and Re current kidney stones N20.0 [place] [address] [address] 05 Mar, 2016 Ingrown right greater toenail L60.0 and Acute non-recurrent frontal sinusitis J01.10 [place] [address] [address] 03 Mar, 2016 Ingrowing right great toenail L60.0 and Recurrent kidney stones N20.0 [place] [address] [address] 08 Jan, 2016 Well woman exam without gynecological ex am Z00.00 and Encounter for surveillance of contraceptive pills Z30.41 [place] [address] [place] [id number] [place] [address] Oct, Surveillance for control, oral con traceptives Z30.41 and Sore throat J02.[address] [address] Sep, Renal calculi N20.[address] [address] Aug, Surveillance of contraceptive injection Z30.42 ; Encounter for Depo- Provera contraception Z30.42 and Encounter for counseling regarding contraception Z30.[address] [address] Aug, Asthma, exercise induced J45.[address] [address] May, [id number] [id number] Mar, Sports physical V70.3 ; Exercise cruise counselor ing V65.41 ; Dietary counseling V65.3 and Asthma 493.[address] [address] Mar, Encounter for contraceptive management V 25.[address] [address] Jan, Routine child health exam V20.2 ; GARD[place] (HPV) DX V04.89 ; MENINGOCOCCAL DX V03.89 ; Dietary counseling and surveillance V65.3 ; Exercise counseling V65.41 and Recurrent nephrolithiasis 592.[address] [address] Jan, Kidney stone 592.[address] [address] Jan, Herpes simplex without mention of compli cation 054.[address] [address] Dec, [facility] [address] [id number] [place] [address] 15 Nov, 2014 Encounter for contraceptive management V 25.9 [facility] [address] [id number] [place] [address] 14 Oct, 2014 [facility] [address] [id number] [place] [address] Oct, [facility] [address] [id number] [place] [address] Sep, [facility] [address] [id number] [place] [address] Sep, [facility] [address] [id number] [place] [address] Sep, [facility] [address] [id number] [place] [address] Sep, [facility] [address] [place] [id number] [place] [address] Aug, [facility] [address] [id number] [place] [address] Aug, [facility] [address] [place] [id number] [place] [address] Aug, [facility] [address] [id number] [place] [address] Aug, [facility] [address] [place] [id number] [place] [address] Jul, [facility] [address] [id number] [place] [address] Jul, [facility] [address] [place] [id number] [place] [address] Jul, [facility] [address] [id number] [place] [address] Jul, [facility] [address] [id number] [place] [address] Jul, [facility] [address] [id number] [place] [address] Jul, [facility] [address] [id number] [place] [address] Jul, [facility] [address] [id number] [place] [address] Jul, [facility] [address] [id number] [place] [address] Jul, [facility] [address] [id number] [place] [address] Jun, [facility] [address] [id number] [place] [address] Jun, [facility] [address] [id number] [place] [address] Jun, [facility] [address] [id number] [place] [address] Jun, [facility] [address] [id number] [place] [address] Jun, [facility] [address] [id number] [place] [address] Jun, [facility] [address] [id number] [place] [address] Jun, [facility] [address] [id number] [place] [address] Jun, [facility] [address] [id number] [place] [address] Jun, [facility] [address] [id number] [place] [address] Jun, [facility] [address] [id number] [place] [address] Jun, [facility] [address] [id number] [place] [address] Jun, [facility] [address] [id number] [place] [address] Jun, 2013 [facility] [address] [id number] [place] [address] Jun, 2013 [facility] [address] [id number] [place] [address] May, [facility] [address] [id number] [place] [address] 15 May, 2014 [facility] [address] [id number] [place] [address] May, [facility] [address] [id number] [place] [address] May, [facility] [address] [id number] [place] [address] May, [facility] [address] [id number] [place] [address] May, 2013 [facility] [address] [id number] [place] [address] May, 2013 [facility] [address] [id number] [place] [address] May, 2013 [facility] [address] [id number] [place] [address] May, [facility] [address] [id number] [place] [address] May, [facility] [address] [id number] [place] [address] Mar, [facility] [address] [id number] [place] [address] Mar, [facility] [address] [id number] [place] [address] Jan, 2013 [facility] [address] [id number] [place] [address] Jan, 2013 [facility] [address] [id number] [place] [address] Jan, 2013 [facility] [address] [id number] [place] [address] Jan, [facility] [address] [id number] [facility] [place] [address] Jan, [facility] [address] [id number] [place] [address] Jan, [facility] [address] [id number] [place] [address] November, [facility] [address] [id number] [place] [address] November, [facility] [address] [id number] [place] [address] November, [facility] [address] [id number] [place] [address] November, [facility] [address] [id number] [place] [address] Oct, [facility] [address] [id number] [place] [address] Oct, [facility] [address] [id number] [place] [address] Oct, [facility] [address] [id number] [place] [address] Oct, [facility] [address] [id number] [place] [address] Sep, [facility] [address] [id number] [place] [address] Sep, [facility] [address] [id number] [place] [address] Sep, [facility] [address] [id number] [place] [address] Sep, [facility] [address] [id number] [place] [address] Aug, [facility] [address] [id number] [place] [address] Aug, [facility] [address] [id number] [place] [address] Aug, [facility] [address] [id number] [place] [address] Aug, [facility] [address] [id number] [place] [address] Aug, [facility] [address] [id number] [place] [address] Aug, [facility] [address] [id number] [place] [address] Jul, [facility] [address] [id number] [place] [address] Jul, [facility] [address] [id number] [place] [address] Jul, [facility] [address] [id number] [place] [address] Jul, [facility] [address] [id number] [place] [address] Jun, [facility] [address] [id number] [place] [address] Jun, [facility] [address] [id number] [place] [address] Jun, [facility] [address] [id number] [place] [address] Jun, [facility] [address] [id number] [place] [address] Jun, [facility] [address] [id number] [place] [address] May, [facility] [address] [place] [id number] [place] [address] May, [facility] [address] [id number] [place] [address] May, [facility] [address] [id number] [place] [address] 19 May, 2013 [facility] [address] [id number] [facility] [place] [address] 18 May, 2013 [facility] [address] [id number] [facility] [place] [address] 18 May, 2013 [facility] [address] [id number] [place] [address] 14 May, 2013 [facility] [address] [id number] [facility] [place] [address] 12 May, 2013 [facility] [address] [id number] [facility] [place] [address] 11 May, 2013 [facility] [address] [id number] [place] [address] 10 May, 2013 [facility] [address] [id number] [place] [address] 10 May, 2013 [facility] [address] [id number] [place] [address] 27 Apr, 2013 [facility] [address] [facility] [address] [id number] [place] [address] 19 Apr, 2013 [facility] [address] [id number] [place] [address] 18 Jan, 2013 [facility] [address] [id number] [place] [address] 16 Jan, 2013 [facility] [address] [id number] [place] [address] Dec, [facility] [address] [facility] [address] [id number] [place] [address] Dec, [facility] [address] [id number] [place] [address] November, [facility] [address] [id number] [place] [address] November, [facility] [address] [id number] [place] [address] November, [facility] [address] [id number] [place] [address] November, [facility] [address] [id number] [place] [address] 24 Oct, 2012 [facility] [address] [id number] [place] [address] Sep, [facility] [address] [id number] [place] [address] Sep, [facility] [address] [id number] [place] [address] 15 Sep, 2012 [facility] [address] [id number] [place] [address] Sep, [facility] [address] [id number] [place] [address] 08 Sep, 2012 [facility] [address] [place] [id number] [place] [address] Sep, [facility] [address] [place] [id number] [place] [address] Aug, [facility] [address] [id number] [place] [address] Aug, [facility] [address] [place] [id number] [place] [address] Jul, [facility] [address] [place] [id number] [place] [address] Jul, [facility] [address] [id number] [place] [address] Jun, [facility] [address] [id number] [place] [address] Jun, [facility] [address] [place] [id number] [place] [address] Jun, [facility] [address] [id number] [place] [address] May, [facility] [address] [place] [id number] [place] [address] May, [facility] [address] [id number] [place] [address] May, [facility] [address] [id number] [place] [address] May, [facility] [address] [id number] [place] [address] Apr, [facility] [address] [place] [id number] [place] [address] Apr, [facility] [address] [place] [id number] [place] [address] Sep, [facility] [address] [place] [id number] [place] [address] Mar, [facility] [address] [id number] [place] [address] Jan, [facility] [address] [id number] [place] [address] Oct, [facility] [address] [id number] [place] [address] May, IMMUNIZATIONS No Known Immunizations SOCIAL HISTORY Never Assessed REASON FOR VISIT PLAN OF CARE VITAL SIGNS MEDICATIONS No Known Medications RESULTS No Results PROCEDURES No Known procedures INSTRUCTIONS MEDICATIONS ADMINISTERED No Known Medications MEDICAL (GENERAL) HISTORY Type Description Date Medical History asthma Medical History kidney stones Medical History 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
--- OUTSIDE RECORDS SUMMARY | 2020-01-11 23:01 | XMS REPORT ---
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 Name Role Phone PALOMA Lamb Unavailable PROBLEMS Type Condition ICD9-CM Code [id number] Code Onset Dates Condition S tatus SNOMED Code Problem Other chronic pain G89.29 Active 8 6504396 Problem Seasonal allergies J30.2 Active 4 51821133 Problem Asthma, exercise induced J45.990 Activ e 49723848 Problem Recurrent kidney stones N20.0 Active 98268851 ALLERGIES No Information ENCOUNTERS Encounter Location Date Diagnosis [facility], [place] [id number] [place] [address] Sep, [facility] [place] [id number] [place] [address] Sep, [facility] [address] [facility] [id number] [address] [place] [address] Aug, Fever R50.9 and Flu-like sym ptoms R68.89 [facility] [place] [id number] [place] [address] Jul, care in first trimester Z34.91 [facility] [place] [id number] [place] [address] Jul, [facility] [place] [id number] [place] [address] Jul, Currently in first trimester wi th unknown gestational age Z34.91 and care in first trimester Z34.91 [facility] [place] [id number] [place] [address] Jul, care in first trimester Z34.91 [facility] [place] [address] [address] Jul, Currently in first trimester wi th unknown gestational age Z34.91 and care, first in first trimester Z34.01 [address] [place] [address] [address] May, [address] [address] [address] Apr, Sprain of left knee, unspecified ligamen t, initial encounter S83.92XA [place] [address] [address] Mar, [address] [address] [address] Mar, [address] [address] [address] Mar, Injury of left knee, initial encounter S 89.92XA and Acute pain of left knee M25.562 [facility] [address] [facility] [id number] [address] [place] [address] Dec, Seasonal allergies J30.2 ; C ough R05 and Gagging episode R19.8 [place] [address] [address] November, Sore throat J02.9 ; Otalgia, bilateral H 92.03 and Allergic rhinitis, unspecified seasonality, unspecified trigger J30.9 [place] [address] [address] Oct, [place] [address] [address] Jun, Encounter for Depo-Provera contraception Z30.42 [place] [address] [address] Mar, Encounter for Depo-Provera contraception Z30.42 [place] [address] [address] Jan, test negative Z32.02 [place] [address] [address] 15 Dec, 2016 Surveillance for control, oral con traceptives Z30.41 and Encounter for Depo-Provera contraception Z30.42 [place] [address] [address] 18 Nov, 2016 Well woman exam without gynecological ex am Z00.00 [place] [address] [address] 23 Sep, 2016 Pharyngitis due to other organism J02.8 [place] [address] [address] Aug, [place] [address] [address] Aug, [place] [address] [address] Aug, Vaginal candidiasis B37.3 [place] [address] [address] Aug, Vaginal candidiasis B37.3 [place] [address] [address] 14 Apr, 2016 Visit for TB skin test Z11.1 [place] [address] [address] 31 Mar, 2016 Visit for TB skin test Z11.1 and Screeni ng for tuberculosis Z11.1 [place] [address] [address] 16 Mar, 2016 Routine health maintenance Z00.00 and Re current kidney stones N20.0 [place] [address] [address] 05 Mar, 2016 Ingrown right greater toenail L60.0 and Acute non-recurrent frontal sinusitis J01.10 [place] [address] [address] Mar, Ingrowing right great toenail L60.0 and Recurrent kidney stones N20.0 [place] [id number] [place] [address] Dec, Well woman exam without gynecological ex am Z00.00 and Encounter for surveillance of contraceptive pills Z30.41 [place] [address] [address] Oct, Surveillance for control, oral con traceptives Z30.41 and Sore throat J02.9 [place] [address] [address] Sep, Renal calculi N20.[address] [address] Aug, Surveillance of contraceptive injection Z30.42 ; Encounter for Depo- Provera contraception Z30.42 and Encounter for counseling regarding contraception Z30.[address] [address] Aug, Asthma, exercise induced J45.990 [id number] [place] [address] May, [address] [id number] Mar, Sports physical V70.3 ; Exercise adolescent counselor ing V65.41 ; Dietary counseling V65.3 and Asthma 493.[address] [address] Mar, Encounter for contraceptive management V 25.[address] [address] Jan, Routine child health exam V20.2 ; GARDAS IL (HPV) DX V04.89 ; MENINGOCOCCAL DX V03.89 ; Dietary counseling and surveillance V65.3 ; Exercise counseling V65.41 and Recurrent nephrolithiasis 592.0 [place] [address] [address] Jan, Kidney stone 592.0 [place] [id number] [place] [address] 08 Jan, 2015 Herpes simplex without mention of compli cation 054.9 [facility] [place] [id number] [place] [address] 07 Dec, 2014 [facility] [place] [address] [id number] [place] [address] 15 Nov, 2014 Encounter for contraceptive management V 25.9 [facility] [place] [id number] [place] [address] 14 Oct, 2014 [facility] [place] [id number] [place] [address] Oct, [facility] [place] [id number] [place] [address] 12 Sep, 2014 [facility] [place] [id number] [place] [address] Sep, [facility] [place] [id number] [place] [address] Sep, [facility] [place] [id number] [place] [address] Sep, [facility] [place] [id number] [place] [address] Aug, [facility] [place] [id number] [place] [address] Aug, [facility] [place] [id number] [place] [address] Aug, [facility] [place] [id number] [place] [address] Aug, [facility] [place] [id number] [place] [address] Jul, [facility] [place] [id number] [place] [address] Jul, [facility] [place] [id number] [place] [address] Jul, [facility] [address] [id number] [place] [address] Jul, [facility] [address] [id number] [place] [address] Jul, [facility] [address] [id number] [place] [address] Jul, [facility] [address] [id number] [place] [address] Jul, [facility] [address] [id number] [place] [address] Jul, [facility] [address] [id number] [place] [address] Jul, [facility] [address] [id number] [place] [address] Jun, [facility] [address] [id number] [place] [address] Jun, [facility] [address] [id number] [place] [address] Jun, [facility] [address] [id number] [place] [address] Jun, [facility] [address] [id number] [place] [address] Jun, [facility] [address] [id number] [place] [address] Jun, [facility] [address] [id number] [place] [address] Jun, [facility] [address] [id number] [place] [address] Jun, [facility] [address] [id number] [place] [address] Jun, [facility] [address] [id number] [place] [address] Jun, [facility] [address] [id number] [place] [address] Jun, [facility] [address] [facility] [id number] [place] [address] Jun, [facility] [address] [facility] [id number] [place] [address] Jun, [facility] [address] [id number] [place] [address] Jun, [facility] [address] [id number] [place] [address] May, [facility] [address] [facility] [id number] [place] [address] May, [facility] [address] [id number] [place] [address] May, [facility] [address] [id number] [place] [address] May, [facility] [address] [id number] [place] [address] May, [facility] [address] [id number] [place] [address] May, [facility] [address] [id number] [place] [address] May, [facility] [address] [id number] [place] [address] May, [facility] [address] [id number] [place] [address] May, [facility] [address] [id number] [place] [address] May, [facility] [address] [id number] [place] [address] Mar, [facility] [address] [id number] [place] [address] Mar, [facility] [address] [id number] [place] [address] Jan, [facility] [address] [id number] [place] [address] Jan, [facility] [address] [id number] [place] [address] Jan, [facility] [address] [id number] [place] [address] Jan, [facility] [address] [id number] [place] [address] Jan, [facility] [address] [id number] [place] [address] Jan, [facility] [address] [id number] [place] [address] November, [facility] [address] [id number] [place] [address] November, [facility] [address] [id number] [place] [address] November, [facility] [address] [id number] [place] [address] November, [facility] [address] [id number] [place] [address] Oct, [facility] [address] [id number] [place] [address] Oct, [facility] [address] [id number] [place] [address] Oct, [facility] [address] [id number] [place] [address] Oct, [facility] [address] [id number] [place] [address] Sep, [facility] [address] [id number] [place] [address] Sep, [facility] [address] [id number] [place] [address] Sep, [facility] [address] [id number] [place] [address] Sep, [facility] [address] [id number] [place] [address] Aug, [facility] [address] [id number] [place] [address] Aug, [facility] [address] [id number] [place] [address] Aug, [facility] [address] [id number] [place] [address] Aug, [facility] [address] [id number] [place] [address] Aug, [facility] [address] [id number] [place] [address] Aug, [facility] [address] [id number] [place] [address] Jul, [facility] [address] [id number] [place] [address] Jul, [facility] [address] [id number] [place] [address] Jul, [facility] [address] [id number] [place] [address] Jul, [facility] [address] [id number] [place] [address] Jun, [facility] [address] [id number] [place] [address] Jun, [facility] [address] [id number] [place] [address] Jun, [facility] [address] [id number] [place] [address] Jun, [facility] [id number] [place] [address] Jun, [facility] [address] [id number] [place] [address] May, [facility] [address] [id number] [place] [address] 24 May, 2013 [facility] [address] [facility] [id number] [place] [address] May, [facility] [address] [facility] [id number] [place] [address] 19 May, 2013 [facility] [address] [id number] [place] [address] 18 May, 2013 [facility] [address] [facility] [id number] [place] [address] 18 May, 2013 [facility] [address] [facility] [id number] [place] [address] 14 May, 2013 [facility] [address] [id number] [place] [address] 12 May, 2013 [facility] [address] [id number] [place] [address] 11 May, 2013 [facility] [address] [id number] [place] [address] 10 May, 2013 [facility] [address] [facility] [id number] [place] [address] 10 May, 2013 [facility] [address] [id number] [place] [address] 27 Apr, 2013 [facility] [address] [id number] [place] [address] Apr, [facility] [address] [id number] [place] [address] 18 Jan, 2013 [facility] [address] [facility] [id number] [place] [address] 16 Jan, 2013 [facility] [address] [facility] [id number] [place] [address] Dec, [facility] [address] [facility] [id number] [place] [address] Dec, [facility] [address] [id number] [place] [address] November, [facility] [address] [id number] [place] [address] November, [facility] [address] [id number] [place] [address] November, [facility] [address] [id number] [place] [address] November, [facility] [address] [id number] [place] [address] Oct, [facility] [address] [id number] [place] [address] Sep, [facility] [address] [id number] [place] [address] Sep, [facility] [address] [id number] [place] [address] 15 Sep, 2012 [facility] [address] [id number] [place] [address] 14 Sep, 2012 [facility] [id number] [place] [address] 08 Sep, 2012 [facility] [address] [id number] [place] [address] Sep, [facility] [address] [id number] [place] [address] Aug, [facility] [address] [id number] [place] [address] Aug, [facility] [address] [id number] [place] [address] Jul, [facility] [address] [id number] [place] [address] Jul, [facility] [id number] [place] [address] Jun, [facility] [address] [id number] [place] [address] 15 Jun, 2012 [facility] [id number] [place] [address] Jun, [facility] [place] [id number] [place] [address] May, [facility] [place] [id number] [place] [address] May, [facility] [place] [id number] [place] [address] May, [facility] [place] [address] [address] May, [facility] [place] [address] [address] Apr, [facility] [place] [address] [address] Apr, [facility] [place] [address] [address] Sep, [facility] [place] [address] [address] Mar, [facility] [place] [id number] [place] [address] Jan, [facility] [place] [address] [address] Oct, [facility] [place] [id number] [place] [address] May, IMMUNIZATIONS No Known Immunizations SOCIAL HISTORY Never Assessed REASON FOR VISIT PLAN OF CARE VITAL SIGNS Height 62 in 2013-08-31 Weight 138.3 lbs 2013-08-31 Temperature 97.7 degrees Fahrenheit 2013-08-31 Heart Rate 88 bpm 2013-08-31 Respiratory Rate 18 2013-08-31 Blood pressure systolic 118 mmHg 2013-08-31 Blood pressure diastolic 82 mmHg 2013-08-31 MEDICATIONS Unknown Medications RESULTS No Results PROCEDURES Procedure Date Ordered Result Body Site THER/PROPH/DIAG INJ, SC/IM Aug 31, 2013 Medroxyprogesterone inj Aug 31, 2013 INJ MDRXYPRGESTRON CNTRACPT 150 MG Aug 31, 2013 URINE TEST Aug 31, 2013 INSTRUCTIONS MEDICATIONS ADMINISTERED No Known Medications MEDICAL (GENERAL) HISTORY Type Description Date Medical History asthma Medical History kidney stones Medical History HSV 1 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
--- OUTSIDE RECORDS SUMMARY | 2020-01-11 23:01 | XMS REPORT ---
Author Author Cedric MCPHERSON Organization [facility] Address [address] [place] [address] Care Team Providers Care Medication Technician Name Role Phone RONDA MCPHERSON Unavailable PROBLEMS Type Condition ICD9-CM Code [id number] Code Onset Dates Condition S tatus SNOMED Code Problem Other chronic pain G89.29 Active 8 0757430 Problem Seasonal allergies J30.2 Active 4 54909486 Problem Asthma, exercise induced J45.990 Activ e 30503621 Problem Recurrent kidney stones N20.0 Active [id number] ALLERGIES No Information ENCOUNTERS Encounter Location Date Diagnosis [facility] [address] [facility] [id number] [address] [place] [address] Aug, Fever R50.9 and Flu-like sym ptoms R68.89 [facility] [address] [address] Jul, care in first trimester Z34.91 [facility] [address] [address] Jul, [place] [address] [address] Jul, Currently in first trimester wi th unknown gestational age Z34.91 and care in first trimester Z34.91 [facility] [address] [address] 13 Jul, 2019 care in first trimester Z34.91 [place] [address] [address] Jul, Currently in first trimester wi th unknown gestational age Z34.91 and care, first in first trimester Z34.01 [place] [address] [address] May, [facility] [address] [address] Apr, Sprain of left knee, unspecified ligamen t, initial encounter S83.92XA [place] [address] [address] Mar, [place] [address] [address] Mar, [place] [address] [address] Mar, Injury of left knee, initial encounter S 89.92XA and Acute pain of left knee M25.562 [facility] [address] [facility] [id number] [address] [place] [address] Dec, Seasonal allergies J30.2 ; C ough R05 and Gagging episode R19.8 [place] [address] [address] November, Sore throat J02.9 ; Otalgia, bilateral H 92.03 and Allergic rhinitis, unspecified seasonality, unspecified trigger J30.9 [place] [address] [address] Oct, [place] [address] [address] Jun, Encounter for Depo-Provera contraception Z30.42 [place] [address] [address] Mar, Encounter for Depo-Provera contraception Z30.42 [place] [address] [address] Jan, test negative Z32.02 [place] [address] [address] Dec, Surveillance for control, oral con traceptives Z30.41 and Encounter for Depo-Provera contraception Z30.42 [place] [address] [address] November, Well woman exam without gynecological ex am Z00.00 [place] [address] [address] Sep, Pharyngitis due to other organism J02.8 [place] [address] [address] Aug, [place] [address] [address] Aug, [place] [address] [address] Aug, Vaginal candidiasis B37.3 [place] [address] [address] Aug, Vaginal candidiasis B37.3 [place] [address] [address] 14 Apr, 2016 Visit for TB skin test Z11.1 [place] [address] [address] 31 Mar, 2016 Visit for TB skin test Z11.1 and Screeni ng for tuberculosis Z11.1 [place] [address] [address] 16 Mar, 2016 Routine health maintenance Z00.00 and Re current kidney stones N20.0 [place] [address] [address] 05 Mar, 2016 Ingrown right greater toenail L60.0 and Acute non-recurrent frontal sinusitis J01.10 [place] [address] [address] 03 Mar, 2016 Ingrowing right great toenail L60.0 and Recurrent kidney stones N20.0 [place] [address] [address] 08 Jan, 2016 Well woman exam without gynecological ex am Z00.00 and Encounter for surveillance of contraceptive pills Z30.41 [place] [address] [place] [id number] [place] [address] Oct, Surveillance for control, oral con traceptives Z30.41 and Sore throat J02.[address] [address] Sep, Renal calculi N20.[address] [address] Aug, Surveillance of contraceptive injection Z30.42 ; Encounter for Depo- Provera contraception Z30.42 and Encounter for counseling regarding contraception Z30.[address] [address] Aug, Asthma, exercise induced J45.[address] [address] May, [id number] [id number] Mar, Sports physical V70.3 ; Exercise drug and alcohol counselor ing V65.41 ; Dietary counseling V65.3 and Asthma 493.[address] [address] Mar, Encounter for contraceptive management V 25.[address] [address] Jan, Routine child health exam V20.2 ; GARDAS IL (HPV) DX V04.89 ; MENINGOCOCCAL DX V03.89 ; Dietary counseling and surveillance V65.3 ; Exercise counseling V65.41 and Recurrent nephrolithiasis 592.[address] [address] Jan, Kidney stone 592.[address] [address] Jan, Herpes simplex without mention of compli cation 054.[address] [address] Dec, [facility] [address] [id number] [place] [address] 15 Nov, 2014 Encounter for contraceptive management V 25.9 [facility] [address] [id number] [place] [address] 14 Oct, 2014 [facility] [address] [id number] [place] [address] Oct, [facility] [address] [id number] [place] [address] Sep, [facility] [address] [id number] [place] [address] Sep, [facility] [address] [id number] [place] [address] Sep, [facility] [address] [id number] [place] [address] Sep, [facility] [address] [place] [id number] [place] [address] Aug, [facility] [address] [id number] [place] [address] Aug, [facility] [address] [place] [id number] [place] [address] Aug, [facility] [address] [id number] [place] [address] Aug, [facility] [address] [place] [id number] [place] [address] Jul, [facility] [address] [id number] [place] [address] Jul, [facility] [address] [place] [id number] [place] [address] Jul, [facility] [address] [id number] [place] [address] Jul, [facility] [address] [id number] [place] [address] Jul, [facility] [address] [id number] [place] [address] Jul, [facility] [address] [id number] [place] [address] Jul, [facility] [address] [id number] [place] [address] Jul, [facility] [address] [id number] [place] [address] Jul, [facility] [address] [id number] [place] [address] Jun, [facility] [address] [id number] [place] [address] Jun, [facility] [address] [id number] [place] [address] Jun, [facility] [address] [id number] [place] [address] Jun, [facility] [address] [id number] [place] [address] Jun, [facility] [address] [id number] [place] [address] Jun, [facility] [address] [id number] [place] [address] Jun, [facility] [address] [id number] [place] [address] Jun, [facility] [address] [id number] [place] [address] Jun, [facility] [address] [id number] [place] [address] Jun, [facility] [address] [id number] [place] [address] Jun, [facility] [address] [id number] [place] [address] Jun, [facility] [address] [id number] [place] [address] Jun, 2013 [facility] [address] [facility] [id number] [place] [address] Jun, 2013 [facility] [address] [facility] [id number] [place] [address] May, [facility] [address] [id number] [place] [address] 15 May, 2014 [facility] [address] [facility] [id number] [place] [address] May, [facility] [address] [facility] [id number] [place] [address] May, [facility] [address] [id number] [place] [address] May, [facility] [address] [id number] [place] [address] May, 2013 [facility] [address] [id number] [place] [address] May, 2013 [facility] [address] [id number] [place] [address] May, 2013 [facility] [address] [id number] [place] [address] May, [facility] [address] [id number] [place] [address] May, [facility] [address] [id number] [place] [address] Mar, [facility] [address] [facility] [id number] [place] [address] Mar, [facility] [address] [id number] [place] [address] Jan, 2013 [facility] [address] [id number] [place] [address] Jan, 2013 [facility] [address] [id number] [place] [address] Jan, 2013 [facility] [address] [id number] [place] [address] Jan, [facility] [address] [facility] [id number] [place] [address] Jan, [facility] [address] [id number] [place] [address] Jan, [facility] [address] [id number] [place] [address] November, [facility] [address] [id number] [place] [address] November, [facility] [address] [id number] [place] [address] November, [facility] [address] [id number] [place] [address] November, [facility] [address] [id number] [place] [address] Oct, [facility] [address] [id number] [place] [address] Oct, [facility] [address] [id number] [place] [address] Oct, [facility] [address] [id number] [place] [address] Oct, [facility] [address] [id number] [place] [address] Sep, [facility] [address] [id number] [place] [address] Sep, [facility] [address] [id number] [place] [address] Sep, [facility] [address] [id number] [place] [address] Sep, [facility] [address] [id number] [place] [address] Aug, [facility] [address] [id number] [place] [address] Aug, [facility] [address] [id number] [place] [address] Aug, [facility] [address] [id number] [place] [address] Aug, [facility] [address] [id number] [place] [address] Aug, [facility] [address] [id number] [place] [address] Aug, [facility] [address] [id number] [place] [address] Jul, [facility] [address] [id number] [place] [address] Jul, [facility] [address] [id number] [place] [address] Jul, [facility] [address] [id number] [place] [address] Jul, [facility] [address] [id number] [place] [address] Jun, [facility] [address] [id number] [place] [address] Jun, [facility] [address] [id number] [place] [address] Jun, [facility] [address] [id number] [place] [address] Jun, [facility] [address] [id number] [place] [address] Jun, [facility] [address] [id number] [place] [address] May, [facility] [address] [place] [id number] [place] [address] May, [facility] [address] [id number] [place] [address] May, [facility] [address] [id number] [place] [address] 19 May, 2013 [facility] [address] [facility] [id number] [place] [address] 18 May, 2013 [facility] [address] [facility] [id number] [place] [address] 18 May, 2013 [facility] [address] [id number] [place] [address] 14 May, 2013 [facility] [address] [facility] [id number] [place] [address] 12 May, 2013 [facility] [address] [facility] [id number] [place] [address] 11 May, 2013 [facility] [address] [id number] [place] [address] 10 May, 2013 [facility] [address] [id number] [place] [address] 10 May, 2013 [facility] [address] [id number] [place] [address] 27 Apr, 2013 [facility] [address] [facility] [id number] [place] [address] 19 Apr, 2013 [facility] [address] [id number] [place] [address] 18 Jan, 2013 [facility] [address] [id number] [place] [address] 16 Jan, 2013 [facility] [address] [id number] [place] [address] Dec, [facility] [address] [facility] [id number] [place] [address] Dec, [facility] [address] [id number] [place] [address] November, [facility] [address] [id number] [place] [address] November, [facility] [address] [id number] [place] [address] November, [facility] [address] [id number] [place] [address] November, [facility] [address] [id number] [place] [address] 24 Oct, 2012 [facility] [address] [id number] [place] [address] Sep, [facility] [address] [id number] [place] [address] Sep, [facility] [address] [id number] [place] [address] 15 Sep, 2012 [facility] [address] [id number] [place] [address] Sep, [facility] [address] [id number] [place] [address] 08 Sep, 2012 [facility] [address] [place] [id number] [place] [address] Sep, [facility] [address] [place] [id number] [place] [address] Aug, [facility] [address] [id number] [place] [address] Aug, [facility] [address] [place] [id number] [place] [address] Jul, [facility] [address] [place] [address] [id number] [place] [address] Jul, [facility] [address] [id number] [place] [address] Jun, [facility] [address] [id number] [place] [address] Jun, [facility] [address] [place] [address] [id number] [place] [address] Jun, [facility] [address] [id number] [place] [address] May, [facility] [address] [id number] [place] [address] May, [facility] [address] [id number] [place] [address] May, [facility] [address] [id number] [place] [address] May, [facility] [address] [id number] [place] [address] Apr, [facility] [id number] [place] [address] Apr, [facility] [id number] [place] [address] Sep, [facility] [id number] [place] [address] Mar, [facility] [address] [id number] [place] [address] Jan, [facility] [address] [id number] [place] [address] Oct, [facility] [address] [id number] [place] [address] May, IMMUNIZATIONS No Known Immunizations SOCIAL HISTORY Never Assessed REASON FOR VISIT PLAN OF CARE VITAL SIGNS MEDICATIONS No Known Medications RESULTS No Results PROCEDURES No Known procedures INSTRUCTIONS MEDICATIONS ADMINISTERED No Known Medications MEDICAL (GENERAL) HISTORY Type Description Date Medical History asthma Medical History kidney stones Medical History HSV 1 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
--- OUTSIDE RECORDS SUMMARY | 2020-01-11 23:02 | XMS REPORT ---
Author Author RadhaSuzieblanche Doctor Organization [facility] Address Unknown Phone Unavailable Care Team Providers Care Manufacturing Chief Engineer Name Role Phone Migration, Doctor Unavailable Unavailable PROBLEMS Type Condition ICD9-CM Code [id number] Code Onset Dates Condition S tatus SNOMED Code Problem Other chronic pain G89.29 Active 8 0233514 Problem Seasonal allergies J30.2 Active 4 07762972 Problem Asthma, exercise induced J45.990 Activ e [id number] Problem Recurrent kidney stones N20.0 Active [id number] ALLERGIES No Information ENCOUNTERS Encounter Location Date Diagnosis [facility] [address] [address] May, [facility] [address] [address] 05 Apr, 2018 Sprain of left knee, unspeci fied ligament, initial encounter S83.92XA [facility] [address] [address] Mar, [facility] [address] [address] Mar, [facility] [address] [address] Mar, Injury of left knee, initial encounter S89.92XA and Acute pain of left knee M25.562 [facility] [address] [address] Dec, Seasonal allergies J30.2 ; C ough R05 and Gagging episode R19.8 [facility] [address] [address] November, Sore throat J02.9 ; Otalgia, bilateral H92.03 and Allergic rhinitis, unspecified seasonality, unspecified trigger J30.9 [place] [address] [id number] [address] [place] [address] Oct, [place] [address] [facility] [id number] [address] [place] [address] Jun, Encounter for Depo-Provera c ontraception Z30.42 [place] [address] [address] [facility] [id number] [address] [place] [address] Mar, Encounter for Depo-Provera c ontraception Z30.42 [place] [address] [address] [facility] [id number] [address] [place] [address] Jan, test negative Z32. 02 [place] [address] [address] [facility] [id number] [address] [place] [address] 15 Dec, 2016 Surveillance for contr ol, oral contraceptives Z30.41 and Encounter for Depo-Provera contraception Z30.42 [place] [address] [address] [facility] [id number] [address] [place] [address] November, Well woman exam without gyne cological exam Z00.00 [place] [address] [address] [facility] [id number] [address] [place] [address] Sep, Pharyngitis due to other org anism J02.8 [place] [address] [address] [facility] [id number] [address] [place] [address] Aug, [place] [address] [address] [facility] [id number] [address] [place] [address] Aug, [place] [address] [address] [facility] [id number] [address] [place] [address] Aug, Vaginal candidiasis B37.3 [place] [address] [address] [facility] [id number] [address] [place] [address] Aug, Vaginal candidiasis B37.3 [place] [address] [address] [facility] [id number] [address] [place] [address] 14 Apr, 2016 Visit for TB skin test Z11.1 [place] [address] [address] [place] [id number] [address] [place] [address] 31 Mar, 2016 Visit for TB skin test Z11.1 and Screening for tuberculosis Z11.1 [place] [address] [address] [place] [id number] [address] [place] [address] Mar, Routine health maintenance Z 00.00 and Recurrent kidney stones N20.0 [place] [address] [address] [facility] [id number] [address] [place] [address] Mar, Ingrown right greater toenai l L60.0 and Acute non-recurrent frontal sinusitis J01.10 [place] [id number] [place] [address] Mar, Ingrowing right great toenai l L60.0 and Recurrent kidney stones N20.0 [place] [address] [place] [address] Dec, Well woman exam without gyne cological exam Z00.00 and Encounter for surveillance of contraceptive pills Z30.41 [place] [address] [place] [address] Oct, Surveillance for contr ol, oral contraceptives Z30.41 and Sore throat J02.9 [place] [address] [place] [address] Sep, Renal calculi N20.0 [place] [address] [place] [address] Aug, Surveillance of contraceptiv e injection Z30.42 ; Encounter for Depo-Provera contraception Z30.42 and Encounter for counseling regarding contraception Z30.9 [place] [address] [place] [address] Aug, Asthma, exercise induced J45 .990 [place] [address] [address] [place] [id number] [address] [place] [address] May, [facility] [address] [id number] Mar, Sports physical V70.3 ; Exer cise counseling V65.41 ; Dietary counseling V65.3 and Asthma 493.90 [facility] [address] [facility] [id number] [address] [place] [address] Mar, Encounter for contraceptive management V25.9 [facility] [address] [facility] [id number] [address] [place] [address] Jan, Routine child health exam V2 0.2 ; GARDASIL (HPV) DX V04.89 ; MENINGOCOCCAL DX V03.89 ; Dietary counseling and surveillance V65.3 ; Exercise counseling V65.41 and Recurrent nephrolithiasis 592.0 [facility] [address] [facility] [id number] [address] [place] [address] Jan, Kidney stone 592.0 [facility] [address] [facility] [id number] [address] [place] [address] Jan, Herpes simplex without menti on of complication 054.9 [facility] [address] [facility] [id number] [address] [place] [address] Dec, [facility] [address] [facility] [id number] [address] [place] [address] November, Encounter for contraceptive management V25.9 [facility] [address] [facility] [id number] [address] [place] [address] Oct, [facility] [address] [facility] [id number] [address] [place] [address] Oct, [facility] [address] [facility] [id number] [address] [place] [address] Sep, [facility] [address] [facility] [id number] [address] [place] [address] Sep, [facility] [address] [facility] [id number] [address] [place] [address] Sep, [facility] [address] [id number] [address] [place] [address], [place] [address] 10 Sep, 2014 [facility] [address] [id number] [address] [place] [address], [place] [address] Aug, [facility] [address] [id number] [address] [place] [address], [place] [address] Aug, [facility] [address] [id number] [address] [place] [address], [place] [address] Aug, [facility] [address] [id number] [address] [place] [address], [place] [address] Aug, [facility] [address] [id number] [address] [place] [address], [place] [address] Jul, [facility] [address] [id number] [address] [place] [address], [place] [address] Jul, [facility] [address] [id number] [address] [place] [address], [place] [address] Jul, [facility] [address] [id number] [address] [place] [address], [place] [address] Jul, [facility] [address] [id number] [address] [place] [address], [place] [address] Jul, [facility] [address] [id number] [address] [place] [address], [place] [address] Jul, [facility] [address] [id number] [address] [place] [address], [place] [address] Jul, [facility] [address] [id number] [address] [place] [address], [place] [address] Jul, [facility] [address] [id number] [address] [place] [address], [place] [address] Jul, [facility] [address] [id number] [address] [place] [address], [place] [address] Jun, [facility] [address] [id number] [address] [place] [address], [place] [address] Jun, [facility] [address] [id number] [address] [place] [address], [place] [address] Jun, [facility] [address] [id number] [address] [place] [address], [place] [address] Jun, [facility] [address] [id number] [address] [place] [address], [place] [address] Jun, [facility] [address] [id number] [address] [place] [address], [place] [address] Jun, [facility] [address] [id number] [address] [place] [address], [place] [address] Jun, [facility] [address] [id number] [address] [place] [address], [place] [address] Jun, [facility] [address] [id number] [address] [place] [address], [place] [address] Jun, [facility] [address] [id number] [address] [place] [address], [place] [address] Jun, [facility] [address] [id number] [address] [place] [address], [place] [address] Jun, [facility] [address] [id number] [address] [place] [address], [place] [address] Jun, [facility] [address] [id number] [address] [place] [address], [place] [address] Jun, [facility] [address] [id number] [address] [place] [address], [place] [address] Jun, [facility] [address] [id number] [address] [place] [address], [place] [address] May, [facility] [address] [id number] [address] [place] [address], [place] [address] 15 May, 2014 [facility] [address] [id number] [address] [place] [address], [place] [address] 14 May, 2014 [facility] [address] [id number] [address] [place] [address], [place] [address] May, [facility] [address] [id number] [address] [place] [address], [place] [address] May, [facility] [address] [id number] [address] [place] [address], [place] [address] May, [facility] [address] [id number] [address] [place] [address], [place] [address] May, [facility] [address] [id number] [address] [place] [address], [place] [address] May, [facility] [address] [id number] [address] [place] [address], [place] [address] May, [facility] [address] [id number] [address] [place] [address], [place] [address] May, [facility] [address] [id number] [address] [place] [address], [place] [address] Mar, [facility] [address] [id number] [address] [place] [address], [place] [address] Mar, [facility] [address] [id number] [address] [place] [address], [place] [address] Jan, [facility] [address] [id number] [address] [place] [address], [place] [address] Jan, [facility] [address] [id number] [address] [place] [address], [place] [address] Jan, [facility] [address] [id number] [address] [place] [address], [place] [address] Jan, [facility] [address] [id number] [address] [place] [address], [place] [address] Jan, [facility] [address] [id number] [address] [place] [address], [place] [address] Jan, [facility] [address] [id number] [address] [place] [address], [place] [address] November, [facility] [address] [id number] [address] [place] [address], [place] [address] November, [facility] [address] [id number] [address] [place] [address], [place] [address] November, [facility] [address] [id number] [address] [place] [address], [place] [address] November, [facility] [address] [id number] [address] [place] [address], [place] [address] Oct, [facility] [address] [id number] [address] [place] [address], [place] [address] Oct, [facility] [address] [id number] [address] [place] [address], [place] [address] Oct, [facility] [address] [id number] [address] [place] [address], [place] [address] Oct, [facility] [address] [id number] [address] [place] [address], [place] [address] Sep, [facility] [address] [id number] [address] [place] [address], [place] [address] Sep, [facility] [address] [id number] [address] [place] [address], [place] [address] Sep, [facility] [address] [id number] [address] [place] [address], [place] [address] Sep, [facility] [address] [id number] [address] [place] [address], [place] [address] Aug, [facility] [address] [id number] [address] [place] [address], [place] [address] Aug, [facility] [address] [id number] [address] [place] [address], [place] [address] Aug, [facility] [address] [id number] [address] [place] [address], [place] [address] Aug, [facility] [address] [id number] [address] [place] [address], [place] [address] Aug, [facility] [address] [id number] [address] [place] [address], [place] [address] Aug, [facility] [address] [id number] [address] [place] [address], [place] [address] Jul, [facility] [address] [id number] [address] [place] [address], [place] [address] Jul, [facility] [address] [id number] [address] [place] [address], [place] [address] Jul, [facility] [address] [id number] [address] [place] [address], [place] [address] Jul, [facility] [address] [id number] [address] [place] [address], [place] [address] Jun, [facility] [address] [id number] [address] [place] [address], [place] [address] Jun, [facility] [address] [id number] [address] [place] [address] Jun, [facility] [address] [id number] [address] [place] [address], [place] [address] Jun, [facility] [address] [id number] [address] [place] [address] Jun, [facility] [address] [id number] [address] [place] [address] May, [facility] [address] [id number] [address] [place] [address] May, [facility] [address] [id number] [address] [place] [address], [place] [address] May, [facility] [address] [id number] [address] [place] [address] May, [facility] [address] [id number] [address] [place] [address] 18 May, 2013 [facility] [address] [id number] [address] [place] [address] 18 May, 2013 [facility] [address] [id number] [address] [place] [address], [place] [address] 14 May, 2013 [facility] [address] [id number] [address] [place] [address], [place] [address] 12 May, 2013 [facility] [address] [id number] [address] [place] [address], [place] [address] 11 May, 2013 [facility] [address] [id number] [address] [place] [address], [place] [address] 10 May, 2013 [facility] [address] [id number] [address] [place] [address], [place] [address] 10 May, 2013 [facility] [address] [id number] [address] [place] [address], [place] [address] 27 Apr, 2013 [facility] [address] [id number] [address] [place] [address], [place] [address] 19 Apr, 2013 [facility] [address] [id number] [address] [place] [address], [place] [address] 18 Jan, 2013 [facility] [address] [id number] [address] [place] [address], [place] [address] 16 Jan, 2013 [facility] [address] [id number] [address] [place] [address], [place] [address] Dec, [facility] [address] [id number] [address] [place] [address], [place] [address] Dec, [facility] [address] [id number] [address] [place] [address], [place] [address] November, [facility] [address] [id number] [address] [place] [address], [place] [address] November, [facility] [address] [id number] [address] [place] [address], [place] [address] November, [facility] [address] [id number] [address] [place] [address], [place] [address] November, [facility] [address] [id number] [address] [place] [address], [place] [address] 24 Oct, 2012 [facility] [address] [id number] [address] [place] [address], [place] [address] 14 Sep, 2012 [facility] [address] [id number] [address] [place] [address], [place] [address] 13 Sep, 2012 [facility] [address] [id number] [address] [place] [address], [place] [address] 15 Sep, 2012 [facility] [address] [id number] [address] [place] [address], [place] [address] 14 Sep, 2012 [facility] [address] [id number] [address] [place] [address], [place] [address] 08 Sep, 2012 [facility] [address] [id number] [address] [place] [address], [place] [address] 04 Sep, 2012 [facility] [address] [id number] [address] [place] [address], [place] [address] 30 Aug, 2012 [facility] [address] [id number] [address] [place] [address], [place] [address] Aug, [facility] [address] [id number] [address] [place] [address], [place] [address] Jul, [facility] [address] [id number] [address] [place] [address], [place] [address] Jul, [facility] [address] [id number] [address] [place] [address], [place] [address] 19 Jun, 2012 [facility] [address] [id number] [address] [place] [address], [place] [address] 15 Jun, 2012 [facility] [address] [id number] [address] [place] [address], [place] [address] 15 Jun, 2012 [facility] [address] [id number] [address] [place] [address], [place] [address] 31 May, 2012 [facility] [address] [id number] [address] [address] May, [facility] [address] [id number] [address] [place] [address] May, [facility] [address] [id number] [address] [place] [address] May, [facility] [address] [id number] [address] [place] [address] Apr, [facility] [address] [id number] [address] [place] [address] Apr, [facility] [address] [id number] [address] [place] [address] Sep, [facility] [address] [id number] [address] [place] [phone] Mar, [facility] [address] [id number] [address] [place] [phone] Jan, [facility] [address] [id number] [address] [place] [phone] Oct, [facility] [address] [id number] [address] [place] [phone] May, IMMUNIZATIONS No Known Immunizations SOCIAL HISTORY Never Assessed REASON FOR VISIT PLAN OF CARE VITAL SIGNS MEDICATIONS Unknown Medications RESULTS No Results PROCEDURES Procedure Date Ordered Result Body Site THER/PROPH/DIAG INJ, SC/IM January 30, 2014 Medroxyprogesterone inj January 30, 2014 URINE TEST January 30, 2014 INSTRUCTIONS MEDICATIONS ADMINISTERED No Known Medications MEDICAL (GENERAL) HISTORY Type Description Date Medical History asthma Medical History kidney stones 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
--- OUTSIDE RECORDS SUMMARY | 2020-01-11 23:02 | XMS REPORT ---
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 Name Role Phone RONDA MCPHERSON Unavailable PROBLEMS Type Condition ICD9-CM Code WOL45-NJ Code Onset Dates Condition S tatus SNOMED Code Problem Other chronic pain G89.29 Active 8 1957858 Problem Seasonal allergies J30.2 Active 4 05238869 Problem Asthma, exercise induced J45.990 Activ e 63683312 Problem Recurrent kidney stones N20.0 Active 80770063 ALLERGIES No Information ENCOUNTERS Encounter Location Date Diagnosis [facility] [address] [facility] [id number] [address] [place] [address] Aug, Fever R50.9 and Flu-like sym ptoms R68.89 [facility] [address] [address] Jul, care in first trimester Z34.91 [facility] [address] [address] Jul, [place] [address] [address] Jul, Currently in first trimester wi th unknown gestational age Z34.91 and care in first trimester Z34.91 [facility] [address] [address] 13 Jul, 2019 care in first trimester Z34.91 [place] [address] [address] Jul, Currently in first trimester wi th unknown gestational age Z34.91 and care, first in first trimester Z34.01 [place] [address] [address] May, [facility] [address] [address] Apr, Sprain of left knee, unspecified ligamen t, initial encounter S83.92XA [place] [address] [address] Mar, [place] [address] [address] Mar, [place] [address] [address] Mar, Injury of left knee, initial encounter S 89.92XA and Acute pain of left knee M25.562 [facility] [address] [facility] [id number] [address] [place] [address] Dec, Seasonal allergies J30.2 ; C ough R05 and Gagging episode R19.8 [place] [address] [address] November, Sore throat J02.9 ; Otalgia, bilateral H 92.03 and Allergic rhinitis, unspecified seasonality, unspecified trigger J30.9 [place] [address] [address] Oct, [place] [address] [address] Jun, Encounter for Depo-Provera contraception Z30.42 [place] [address] [address] Mar, Encounter for Depo-Provera contraception Z30.42 [place] [address] [address] Jan, test negative Z32.02 [place] [address] [address] Dec, Surveillance for control, oral con traceptives Z30.41 and Encounter for Depo-Provera contraception Z30.42 [place] [address] [address] November, Well woman exam without gynecological ex am Z00.00 [place] [address] [address] Sep, Pharyngitis due to other organism J02.8 [place] [address] [address] Aug, [place] [address] [address] Aug, [place] [address] [address] Aug, Vaginal candidiasis B37.3 [place] [address] [address] Aug, Vaginal candidiasis B37.3 [place] [address] [address] 14 Apr, 2016 Visit for TB skin test Z11.1 [place] [address] [address] 31 Mar, 2016 Visit for TB skin test Z11.1 and Screeni ng for tuberculosis Z11.1 [place] [address] [address] 16 Mar, 2016 Routine health maintenance Z00.00 and Re current kidney stones N20.0 [place] [address] [address] 05 Mar, 2016 Ingrown right greater toenail L60.0 and Acute non-recurrent frontal sinusitis J01.10 [place] [address] [address] 03 Mar, 2016 Ingrowing right great toenail L60.0 and Recurrent kidney stones N20.0 [place] [address] [address] 08 Jan, 2016 Well woman exam without gynecological ex am Z00.00 and Encounter for surveillance of contraceptive pills Z30.41 [place] [address] [place] [id number] [place] [address] Oct, Surveillance for control, oral con traceptives Z30.41 and Sore throat J02.[address] [address] Sep, Renal calculi N20.[address] [address] Aug, Surveillance of contraceptive injection Z30.42 ; Encounter for Depo- Provera contraception Z30.42 and Encounter for counseling regarding contraception Z30.[address] [address] Aug, Asthma, exercise induced J45.[address] [address] May, [id number] [id number] Mar, Sports physical V70.3 ; Exercise delinquency counselor ing V65.41 ; Dietary counseling V65.3 and Asthma 493.[address] [address] Mar, Encounter for contraceptive management V 25.[address] [address] Jan, Routine child health exam V20.2 ; GARDAS [place] (HPV) DX V04.89 ; MENINGOCOCCAL DX V03.89 ; Dietary counseling and surveillance V65.3 ; Exercise counseling V65.41 and Recurrent nephrolithiasis 592.[address] [address] Jan, Kidney stone 592.[address] [address] Jan, Herpes simplex without mention of compli cation 054.[address] [address] Dec, [facility] [address] [id number] [place] [address] 15 Nov, 2014 Encounter for contraceptive management V 25.9 [facility] [address] [id number] [place] [address] 14 Oct, 2014 [facility] [address] [id number] [place] [address] Oct, [facility] [address] [id number] [place] [address] Sep, [facility] [address] [id number] [place] [address] Sep, [facility] [address] [id number] [place] [address] Sep, [facility] [address] [id number] [place] [address] Sep, [facility] [address] [place] [id number] [place] [address] Aug, [facility] [address] [id number] [place] [address] Aug, [facility] [address] [place] [id number] [place] [address] Aug, [facility] [address] [id number] [place] [address] Aug, [facility] [address] [place] [id number] [place] [address] Jul, [facility] [address] [id number] [place] [address] Jul, [facility] [address] [place] [id number] [place] [address] Jul, [facility] [address] [id number] [place] [address] Jul, [facility] [address] [id number] [place] [address] Jul, [facility] [address] [id number] [place] [address] Jul, [facility] [address] [id number] [place] [address] Jul, [facility] [address] [id number] [place] [address] Jul, [facility] [address] [id number] [place] [address] Jul, [facility] [address] [id number] [place] [address] Jun, [facility] [address] [id number] [place] [address] Jun, [facility] [address] [id number] [place] [address] Jun, [facility] [address] [id number] [place] [address] Jun, [facility] [address] [id number] [place] [address] Jun, [facility] [address] [id number] [place] [address] Jun, [facility] [address] [id number] [place] [address] Jun, [facility] [address] [id number] [place] [address] Jun, [facility] [address] [id number] [place] [address] Jun, [facility] [address] [id number] [place] [address] Jun, [facility] [address] [id number] [place] [address] Jun, [facility] [address] [id number] [place] [address] Jun, [facility] [address] [id number] [place] [address] Jun, 2013 [facility] [address] [facility] [id number] [place] [address] Jun, 2013 [facility] [address] [facility] [id number] [place] [address] May, [facility] [address] [id number] [place] [address] 15 May, 2014 [facility] [address] [facility] [id number] [place] [address] May, [facility] [address] [facility] [id number] [place] [address] May, [facility] [address] [id number] [place] [address] May, [facility] [address] [id number] [place] [address] May, 2013 [facility] [address] [id number] [place] [address] May, 2013 [facility] [address] [id number] [place] [address] May, 2013 [facility] [address] [id number] [place] [address] May, [facility] [address] [id number] [place] [address] May, [facility] [address] [id number] [place] [address] Mar, [facility] [address] [facility] [id number] [place] [address] Mar, [facility] [address] [id number] [place] [address] Jan, 2013 [facility] [address] [id number] [place] [address] Jan, 2013 [facility] [address] [id number] [place] [address] Jan, 2013 [facility] [address] [id number] [place] [address] Jan, [facility] [address] [facility] [id number] [place] [address] Jan, [facility] [address] [id number] [place] [address] Jan, [facility] [address] [id number] [place] [address] November, [facility] [address] [id number] [place] [address] November, [facility] [address] [id number] [place] [address] November, [facility] [address] [id number] [place] [address] November, [facility] [address] [id number] [place] [address] Oct, [facility] [address] [id number] [place] [address] Oct, [facility] [address] [id number] [place] [address] Oct, [facility] [address] [id number] [place] [address] Oct, [facility] [address] [id number] [place] [address] Sep, [facility] [address] [id number] [place] [address] Sep, [facility] [address] [id number] [place] [address] Sep, [facility] [address] [id number] [place] [address] Sep, [facility] [address] [id number] [place] [address] Aug, [facility] [address] [id number] [place] [address] Aug, [facility] [address] [id number] [place] [address] Aug, [facility] [address] [id number] [place] [address] Aug, [facility] [address] [id number] [place] [address] Aug, [facility] [address] [id number] [place] [address] Aug, [facility] [address] [id number] [place] [address] Jul, [facility] [address] [id number] [place] [address] Jul, [facility] [address] [id number] [place] [address] Jul, [facility] [address] [id number] [place] [address] Jul, [facility] [address] [id number] [place] [address] Jun, [facility] [address] [id number] [place] [address] Jun, [facility] [address] [id number] [place] [address] Jun, [facility] [address] [id number] [place] [address] Jun, [facility] [address] [id number] [place] [address] Jun, [facility] [address] [id number] [place] [address] May, [facility] [address] [place] [id number] [place] [address] May, [facility] [address] [id number] [place] [address] May, [facility] [address] [id number] [place] [address] 19 May, 2013 [facility] [address] [facility] [id number] [place] [address] 18 May, 2013 [facility] [address] [facility] [id number] [place] [address] 18 May, 2013 [facility] [address] [id number] [place] [address] 14 May, 2013 [facility] [address] [facility] [id number] [place] [address] 12 May, 2013 [facility] [address] [facility] [id number] [place] [address] 11 May, 2013 [facility] [address] [id number] [place] [address] 10 May, 2013 [facility] [address] [id number] [place] [address] 10 May, 2013 [facility] [address] [id number] [place] [address] 27 Apr, 2013 [facility] [address] [facility] [id number] [place] [address] 19 Apr, 2013 [facility] [address] [id number] [place] [address] 18 Jan, 2013 [facility] [address] [id number] [place] [address] 16 Jan, 2013 [facility] [address] [id number] [place] [address] Dec, [facility] [address] [facility] [id number] [place] [address] Dec, [facility] [address] [id number] [place] [address] November, [facility] [address] [id number] [place] [address] November, [facility] [address] [id number] [place] [address] November, [facility] [address] [id number] [place] [address] November, [facility] [address] [id number] [place] [address] 24 Oct, 2012 [facility] [address] [id number] [place] [address] Sep, [facility] [address] [id number] [place] [address] Sep, [facility] [address] [id number] [place] [address] 15 Sep, 2012 [facility] [address] [id number] [place] [address] Sep, [facility] [address] [id number] [place] [address] 08 Sep, 2012 [facility] [address] [place] [id number] [place] [address] Sep, [facility] [address] [place] [id number] [place] [address] Aug, [facility] [address] [id number] [place] [address] Aug, [facility] [address] [place] [id number] [place] [address] Jul, [facility] [address] [place] [id number] [place] [address] Jul, [facility] [address] [id number] [place] [address] Jun, [facility] [address] [id number] [place] [address] Jun, [facility] [address] [place] [id number] [place] [address] Jun, [facility] [address] [id number] [place] [address] May, [facility] [address] [place] [id number] [place] [address] May, [facility] [address] [id number] [place] [address] May, [facility] [address] [id number] [place] [address] May, [facility] [address] [id number] [place] [address] Apr, [facility] [address] [place] [id number] [place] [address] Apr, [facility] [address] [place] [address] [id number] [place] [address] Sep, [facility] [address] [place] [id number] [place] [address] Mar, [facility] [address] [id number] [place] [address] Jan, [facility] [address] [id number] [place] [address] Oct, [facility] [address] [id number] [place] [address] May, IMMUNIZATIONS No Known Immunizations SOCIAL HISTORY Never Assessed REASON FOR VISIT PLAN OF CARE VITAL SIGNS MEDICATIONS No Known Medications RESULTS No Results PROCEDURES No Known procedures INSTRUCTIONS MEDICATIONS ADMINISTERED No Known Medications MEDICAL (GENERAL) HISTORY Type Description Date Medical History asthma Medical History kidney stones Medical History HSV 1 Telecommunications Analyst Surgical History thumb broken age 11 Surgical History kidney stone removed 03/18/2016 Hospitalization History kidney stones/ dehydration/ UTI Dece mber 2014 Hospitalization History ER visit for knee injury March 2018
--- OUTSIDE RECORDS SUMMARY | 2020-01-11 23:02 | XMS REPORT ---
Author Author Cedric MCPHERSON Organization [facility] Address [address] [place] [address] Care Team Providers Care Neuroradiologist Name Role Phone RONDA MCPHERSON Unavailable PROBLEMS Type Condition ICD9-CM Code CUR03-BH Code Onset Dates Condition S tatus SNOMED Code Problem Other chronic pain G89.29 Active 8 4849430 Problem Seasonal allergies J30.2 Active 4 19442823 Problem Asthma, exercise induced J45.990 Activ e 99140212 Problem Recurrent kidney stones N20.0 Active 85413031 ALLERGIES No Information ENCOUNTERS Encounter Location Date Diagnosis [place] [address] [address] Aug, First trimester Z34.91 [place] [address] [address] Jul, care in first trimester Z34.91 [place] [address] [address] Jul, [place] [address] [address] Jul, Currently in first trimester wi th unknown gestational age Z34.91 and care in first trimester Z34.91 [place] [address] [address] Jul, care in first trimester Z34.91 [place] [address] [address] Jul, Currently in first trimester wi th unknown gestational age Z34.91 and care, first in first trimester Z34.01 [place] [address] [address] May, [place] [address] [address] Apr, Sprain of left knee, unspecified ligamen t, initial encounter S83.92XA [place] [address] [address] Mar, [facility] [address] [address] Mar, [place] [address] [address] Mar, Injury of left knee, initial encounter S 89.92XA and Acute pain of left knee M25.562 [facility] [address] [facility] [id number] [place] [address] Dec, Seasonal allergies J30.2 ; C ough R05 and Gagging episode R19.8 [place] [address] [address] November, Sore throat J02.9 ; Otalgia, bilateral H 92.03 and Allergic rhinitis, unspecified seasonality, unspecified trigger J30.9 [place] [address] [address] Oct, [place] [address] [address] Jun, Encounter for Depo-Provera contraception Z30.42 [place] [address] [address] Mar, Encounter for Depo-Provera contraception Z30.42 [place] [address] [address] Jan, test negative Z32.02 [place] [address] [address] Dec, Surveillance for control, oral con traceptives Z30.41 and Encounter for Depo-Provera contraception Z30.42 [place] [address] [address] November, Well woman exam without gynecological ex am Z00.00 [place] [address] [address] Sep, Pharyngitis due to other organism J02.8 [place] [address] [address] Aug, [place] [address] [address] Aug, [place] [address] [address] Aug, Vaginal candidiasis B37.3 [place] [address] [address] Aug, Vaginal candidiasis B37.3 [place] [address] [address] 14 Apr, 2016 Visit for TB skin test Z11.1 [place] [address] [address] Mar, Visit for TB skin test Z11.1 and Screeni ng for tuberculosis Z11.1 [place] [address] [address] Mar, Routine health maintenance Z00.00 and Re current kidney stones N20.0 [place] [address] [address] Mar, Ingrown right greater toenail L60.0 and Acute non-recurrent frontal sinusitis J01.10 [place] [address] [address] Mar, Ingrowing right great toenail L60.0 and Recurrent kidney stones N20.0 [place] [address] [address] Dec, Well woman exam without gynecological ex am Z00.00 and Encounter for surveillance of contraceptive pills Z30.41 [place] [address] [place] [address] Oct, Surveillance for control, oral con traceptives Z30.41 and Sore throat J02.9 [place] [address] [address] Sep, Renal calculi N20.0 [place] [address] [place] [id number] [place] [address] Aug, Surveillance of contraceptive injection Z30.42 ; Encounter for Depo- Provera contraception Z30.42 and Encounter for counseling regarding contraception Z30.9 [place] [address] [address] Aug, Asthma, exercise induced J45.990 [place] [address] [address] May, [place] [address] [place] [id number] [id number] Mar, Sports physical V70.3 ; 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 ; Dietary counseling V65.3 and Asthma 493.90 [place] [address] [address] Mar, Encounter for contraceptive management V 25.9 [place] [address] [address] Jan, Routine child health exam V20.2 ; GARDAS IL (HPV) DX V04.89 ; MENINGOCOCCAL DX V03.89 ; Dietary counseling and surveillance V65.3 ; Exercise counseling V65.41 and Recurrent nephrolithiasis 592.0 [place] [address] [address] Jan, Kidney stone 592.0 [place] [address] [address] Jan, Herpes simplex without mention of compli cation 054.9 [place] [address] [address] Dec, [place] [address] [id number] [place] [address] 15 Nov, 2014 Encounter for contraceptive management V 25.9 [facility] [address] [id number] [place] [address] 14 Oct, 2014 [facility] [address] [id number] [place] [address] Oct, [facility] [address] [id number] [place] [address] Sep, [facility] [address] [id number] [place] [address] Sep, [facility] [address] [place] [id number] [place] [address] Sep, [facility] [address] [id number] [place] [address] Sep, [facility] [address] [place] [id number] [place] [address] Aug, [facility] [address] [id number] [place] [address] Aug, [facility] [address] [place] [id number] [place] [address] Aug, [facility] [address] [id number] [place] [address] Aug, [facility] [address] [place] [id number] [place] [address] Jul, [facility] [address] [id number] [place] [address] 16 Jul, 2014 [facility] [address] [id number] [place] [address] Jul, [facility] [address] [id number] [place] [address] Jul, [facility] [address] [id number] [place] [address] Jul, [facility] [address] [id number] [place] [address] Jul, [facility] [address] [id number] [place] [address] Jul, [facility] [address] [id number] [place] [address] Jul, [facility] [address] [id number] [place] [address] Jul, [facility] [address] [id number] [place] [address] Jun, [facility] [address] [id number] [place] [address] Jun, [facility] [address] [id number] [place] [address] Jun, [facility] [address] [id number] [place] [address] Jun, [facility] [address] [id number] [place] [address] Jun, [facility] [address] [id number] [place] [address] Jun, [facility] [address] [id number] [place] [address] Jun, [facility] [address] [id number] [place] [address] Jun, [facility] [address] [id number] [place] [address] Jun, [facility] [address] [id number] [place] [address] Jun, [facility] [address] [id number] [place] [address] Jun, [facility] [address] [id number] [place] [address] Jun, [facility] [address] [id number] [place] [address] Jun, [facility] [address] [facility] [id number] [place] [address] Jun, [facility] [address] [facility] [id number] [place] [address] May, [facility] [address] [facility] [id number] [place] [address] 15 May, 2014 [facility] [address] [id number] [place] [address] May, [facility] [address] [facility] [id number] [place] [address] May, [facility] [address] [id number] [place] [address] May, [facility] [address] [id number] [place] [address] May, [facility] [address] [id number] [place] [address] May, [facility] [address] [id number] [place] [address] May, [facility] [address] [id number] [place] [address] May, [facility] [address] [id number] [place] [address] May, [facility] [address] [id number] [place] [address] Mar, [facility] [address] [id number] [place] [address] Mar, [facility] [address] [id number] [place] [address] Jan, [facility] [address] [id number] [place] [address] Jan, 2013 [facility] [address] [id number] [place] [address] Jan, 2013 [facility] [address] [id number] [place] [address] Jan, [facility] [address] [facility] [id number] [place] [address] Jan, [facility] [address] [id number] [place] [address] Jan, [facility] [address] [id number] [place] [address] November, [facility] [address] [id number] [place] [address] November, [facility] [address] [facility] [id number] [place] [address] November, [facility] [address] [id number] [place] [address] November, [facility] [address] [id number] [place] [address] Oct, [facility] [address] [id number] [place] [address] Oct, [facility] [address] [id number] [place] [address] Oct, [facility] [address] [id number] [place] [address] Oct, [facility] [address] [id number] [place] [address] Sep, [facility] [address] [id number] [place] [address] Sep, [facility] [address] [id number] [place] [address] Sep, [facility] [address] [id number] [place] [address] Sep, [facility] [address] [id number] [place] [address] Aug, [facility] [address] [id number] [place] [address] Aug, [facility] [address] [id number] [place] [address] Aug, [facility] [address] [id number] [place] [address] Aug, [facility] [address] [id number] [place] [address] Aug, [facility] [address] [id number] [place] [address] Aug, [facility] [address] [id number] [place] [address] Jul, [facility] [address] [id number] [place] [address] Jul, [facility] [address] [id number] [place] [address] Jul, [facility] [address] [id number] [place] [address] Jul, [facility] [address] [id number] [place] [address] Jun, [facility] [address] [id number] [place] [address] Jun, [facility] [address] [id number] [place] [address] Jun, [facility] [address] [id number] [place] [address] Jun, [facility] [address] [id number] [place] [address] Jun, [facility] [address] [id number] [place] [address] May, [facility] [address] [id number] [place] [address] May, [facility] [address] [id number] [place] [address] May, [facility] [address] [id number] [place] [address] May, [facility] [address] [facility] [id number] [place] [address] 18 May, 2013 [facility] [address] [facility] [id number] [place] [address] 18 May, 2013 [facility] [address] [id number] [place] [address] 14 May, 2013 [facility] [address] [id number] [place] [address] 12 May, 2013 [facility] [address] [id number] [place] [address] 11 May, 2013 [facility] [address] [id number] [place] [address] 10 May, 2013 [facility] [address] [id number] [place] [address] 10 May, 2013 [facility] [address] [id number] [place] [address] 27 Apr, 2013 [facility] [address] [id number] [place] [address] 19 Apr, 2013 [facility] [address] [id number] [place] [address] 18 Jan, 2013 [facility] [address] [id number] [place] [address] 16 Jan, 2013 [facility] [address] [id number] [place] [address] 14 Dec, 2012 [facility] [address] [id number] [place] [address] Dec, [facility] [address] [id number] [place] [address] November, [facility] [address] [id number] [place] [address] November, [facility] [address] [id number] [place] [address] November, [facility] [address] [id number] [place] [address] November, [facility] [address] [id number] [place] [address] Oct, [facility] [address] [id number] [place] [address] 14 Sep, 2012 [facility] [address] [id number] [place] [address] Sep, [facility] [address] [id number] [place] [address] 15 Sep, 2012 [facility] [address] [id number] [place] [address] 14 Sep, 2012 [facility] [address] [id number] [place] [address] 08 Sep, 2012 [facility] [address] [id number] [place] [address] 04 Sep, 2012 [facility] [address] [id number] [place] [address] Aug, [facility] [address] [id number] [place] [address] Aug, [facility] [address] [id number] [place] [address] Jul, [facility] [address] [id number] [place] [address] Jul, [facility] [address] [id number] [place] [address] Jun, [facility] [address] [id number] [place] [address] Jun, [facility] [address] [id number] [place] [address] Jun, [facility] [address] [id number] [place] [address] May, [facility] [address] [id number] [place] [address] May, [facility] [address] [id number] [place] [address] May, [facility] [address] [place] [id number] [place] [address] May, [facility] [address] [place] [id number] [place] [address] Apr, [facility] [address] [address] Apr, [facility] [address] [address] Sep, [facility] [address] [address] Mar, [facility] [address] [address] Jan, [facility] [address] [place] [id number] [place] [address] Oct, [facility] [address] [place] [id number] [place] [address] May, IMMUNIZATIONS No Known Immunizations SOCIAL HISTORY Never Assessed REASON FOR VISIT PLAN OF CARE VITAL SIGNS MEDICATIONS Unknown Medications RESULTS No Results PROCEDURES No Known procedures INSTRUCTIONS MEDICATIONS ADMINISTERED No Known Medications MEDICAL (GENERAL) HISTORY Type Description Date Medical History asthma Medical History kidney stones Medical History HSV 1 Cloth Drier Surgical History thumb broken age 11 Surgical History kidney stone removed 03/18/2016 Hospitalization History kidney stones/ dehydration/ UTI Dece mber 2013 Hospitalization History ER visit for knee injury March 2018
--- OUTSIDE RECORDS SUMMARY | 2020-01-11 23:02 | XMS REPORT ---
Author Author Cedric MCPHERSON Organization [facility] Address [address] [place] [address] Care Team Providers Care House Director Name Role Phone RONDA MCPHERSON Unavailable PROBLEMS Type Condition ICD9-CM Code [id number] Code Onset Dates Condition S tatus SNOMED Code Problem Other chronic pain G89.29 Active 8 2351153 Problem Seasonal allergies J30.2 Active 4 24639999 Problem Asthma, exercise induced J45.990 Activ e [id number] Problem Recurrent kidney stones N20.0 Active [id number] ALLERGIES No Information ENCOUNTERS Encounter Location Date Diagnosis [facility] [address] [address] May, [facility] [address] [address] Apr, Sprain of left knee, unspeci fied ligament, initial encounter S83.92XA [place] [address] [place] [id number] [address] [place] [address] Mar, [facility] [address] [address] Mar, [facility] [address] [address] Mar, Injury of left knee, initial encounter S89.92XA and Acute pain of left knee M25.562 [facility] [address] [address] Dec, Seasonal allergies J30.2 ; C ough R05 and Gagging episode R19.8 [facility] [address] [place] [id number] [place] [address] 16 May, 2018 Sore throat J02.9 ; Otalgia, bilateral H92.03 and Allergic rhinitis, unspecified seasonality, unspecified trigger J30.9 [place] [address] [facility] [id number] [address] [place] [address] Oct, [place] [address] [address] [facility] [id number] [address] [place] [address] Jun, Encounter for Depo-Provera c ontraception Z30.42 [place] [address] [address] [facility] [id number] [address] [place] [address] Mar, Encounter for Depo-Provera c ontraception Z30.42 [place] [address] [place] [id number] [place] [address] Jan, test negative Z32. 02 [place] [address] [place] [id number] [address] [place] [address] Dec, Surveillance for contr ol, oral contraceptives Z30.41 and Encounter for Depo-Provera contraception Z30.42 [place] [address] [place] [id number] [address] [place] [address] November, Well woman exam without gyne cological exam Z00.00 [place] [address] [place] [id number] [address] [place] [address] Sep, Pharyngitis due to other org anism J02.8 [place] [address] [facility] [id number] [address] [place] [address] Aug, [place] [address] [facility] [id number] [address] [place] [address] Aug, [place] [address] [place] [id number] [place] [address] Aug, Vaginal candidiasis B37.3 [place] [address] [place] [id number] [address] [place] [address] Aug, Vaginal candidiasis B37.3 [place] [address] [place] [id number] [address] [place] [address] 14 Apr, 2016 Visit for TB skin test Z11.1 [place] [address] [address] Mar, Visit for TB skin test Z11.1 and Screening for tuberculosis Z11.1 [place] [address] [address] Mar, Routine health maintenance Z 00.00 and Recurrent kidney stones N20.0 [place] [address] [address] Mar, Ingrown right greater toenai l L60.0 and Acute non-recurrent frontal sinusitis J01.10 [place] [address] [address] Mar, Ingrowing right great toenai l L60.0 and Recurrent kidney stones N20.0 [place] [address] [address] Dec, Well woman exam without gyne cological exam Z00.00 and Encounter for surveillance of contraceptive pills Z30.[address] [address] Oct, Surveillance for contr ol, oral contraceptives Z30.41 and Sore throat J02.9 [place] [address] [place] [id number] [place] [address] Sep, Renal calculi N20.0 [place] [address] [place] [id number] [place] [address] Aug, Surveillance of contraceptiv e injection Z30.42 ; Encounter for Depo-Provera contraception Z30.42 and Encounter for counseling regarding contraception Z30.9 [place] [address] [place] [id number] [place] [address] Aug, Asthma, exercise induced J45 .990 [place] [address] [place] [id number] [place] [address] May, [facility] [address] [id number] [place] [id number] Mar, Sports physical V70.3 ; Exer cise counseling V65.41 ; Dietary counseling V65.3 and Asthma 493.90 [facility] [address] [facility] [id number] [address] [place] [address] Mar, Encounter for contraceptive management V25.9 [facility] [address] [id number] [address] [place] [address] Jan, Routine child health exam V2 0.2 ; GARDASIL (HPV) DX V04.89 ; MENINGOCOCCAL DX V03.89 ; Dietary counseling and surveillance V65.3 ; Exercise counseling V65.41 and Recurrent nephrolithiasis 592.0 [facility] [address] [facility] [id number] [address] [place] [address] Jan, Kidney stone 592.0 [facility] [address] [facility] [id number] [address] [place] [address] Jan, Herpes simplex without menti on of complication 054.9 [facility] [address] [facility] [id number] [address] [place] [address] Dec, [facility] [address] [facility] [id number] [address] [place] [address] November, Encounter for contraceptive management V25.9 [facility] [address] [id number] [address] [place] [address] Oct, [facility] [address] [id number] [address] [place] [address] Oct, [facility] [address] [facility] [id number] [address] [place] [address] Sep, [facility] [address] [facility] [id number] [address] [place] [address] Sep, [facility] [address] [facility] [id number] [address] [place] [address] Sep, [facility] [address] [id number] [address] [place] [address], [place] [address] Sep, [facility] [address] [id number] [address] [place] [address], [place] [address] Aug, [facility] [address] [id number] [address] [place] [address], [place] [address] Aug, [facility] [address] [id number] [address] [place] [address], [place] [address] Aug, [facility] [address] [id number] [address] [place] [address], [place] [address] Aug, [facility] [address] [id number] [address] [place] [address], [place] [address] Jul, [facility] [address] [id number] [address] [place] [address], [place] [address] Jul, [facility] [address] [id number] [address] [place] [address], [place] [address] Jul, [facility] [address] [id number] [address] [place] [address], [place] [address] Jul, [facility] [address] [id number] [address] [place] [address], [place] [address] Jul, [facility] [address] [id number] [address] [place] [address], [place] [address] Jul, [facility] [address] [id number] [address] [place] [address], [place] [address] Jul, [facility] [address] [id number] [address] [place] [address], [place] [address] Jul, [facility] [address] [id number] [address] [place] [address], [place] [address] Jul, [facility] [address] [id number] [address] [place] [address], [place] [address] Jun, [facility] [address] [id number] [address] [place] [address], [place] [address] Jun, [facility] [address] [id number] [address] [place] [address], [place] [address] Jun, [facility] [address] [id number] [address] [place] [address], [place] [address] Jun, [facility] [address] [id number] [address] [place] [address], [place] [address] Jun, [facility] [address] [id number] [address] [place] [address], [place] [address] Jun, [facility] [address] [id number] [address] [place] [address], [place] [address] Jun, [facility] [address] [id number] [address] [place] [address], [place] [address] Jun, [facility] [address] [id number] [address] [place] [address], [place] [address] Jun, [facility] [address] [id number] [address] [place] [address], [place] [address] Jun, [facility] [address] [id number] [address] [place] [address], [place] [address] Jun, [facility] [address] [id number] [address] [place] [address], [place] [address] Jun, [facility] [address] [id number] [address] [place] [address], [place] [address] Jun, [facility] [address] [id number] [address] [place] [address], [place] [address] Jun, [facility] [address] [id number] [address] [place] [address], [place] [address] 15 May, 2014 [facility] [address] [id number] [address] [place] [address], [place] [address] 15 May, 2014 [facility] [address] [id number] [address] [place] [address], [place] [address] May, 2013 [facility] [address] [id number] [address] [place] [address], [place] [address] May, 2013 [facility] [address] [id number] [address] [place] [address], [place] [address] May, [facility] [address] [id number] [address] [place] [address], [place] [address] May, 2013 [facility] [address] [id number] [address] [place] [address], [place] [address] May, 2013 [facility] [address] [id number] [address] [place] [address], [place] [address] May, [facility] [address] [id number] [address] [place] [address], [place] [address] May, [facility] [address] [id number] [address] [place] [address], [place] [address] May, [facility] [address] [id number] [address] [place] [address], [place] [address] Mar, [facility] [address] [id number] [address] [place] [address], [place] [address] Mar, [facility] [address] [id number] [address] [place] [address], [place] [address] Jan, 2013 [facility] [address] [id number] [address] [place] [address], [place] [address] Jan, 2013 [facility] [address] [id number] [address] [place] [address] Jan, [facility] [address] [id number] [address] [place] [address], [place] [address] Jan, [facility] [address] [id number] [address] [place] [address], [place] [address] Jan, [facility] [address] [id number] [address] [place] [address], [place] [address] Jan, [facility] [address] [id number] [address] [place] [address], [place] [address] November, [facility] [address] [id number] [address] [place] [address], [place] [address] November, [facility] [address] [id number] [address] [place] [address], [place] [address] November, [facility] [address] [id number] [address] [place] [address], [place] [address] November, [facility] [address] [id number] [address] [place] [address], [place] [address] Oct, [facility] [address] [id number] [address] [place] [address], [place] [address] Oct, [facility] [address] [id number] [address] [place] [address], [place] [address] Oct, [facility] [address] [id number] [address] [place] [address], [place] [address] Oct, [facility] [address] [id number] [address] [place] [address], [place] [address] Sep, [facility] [address] [id number] [address] [place] [address], [place] [address] Sep, [facility] [address] [id number] [address] [place] [address], [place] [address] Sep, [facility] [address] [id number] [address] [place] [address], [place] [address] Sep, [facility] [address] [id number] [address] [place] [address], [place] [address] Aug, [facility] [address] [id number] [address] [place] [address], [place] [address] Aug, [facility] [address] [id number] [address] [place] [address], [place] [address] Aug, [facility] [address] [id number] [address] [place] [address], [place] [address] Aug, [facility] [address] [id number] [address] [place] [address], [place] [address] Aug, [facility] [address] [id number] [address] [place] [address], [place] [address] Aug, [facility] [address] [id number] [address] [place] [address], [place] [address] Jul, [facility] [address] [id number] [address] [place] [address], [place] [address] Jul, [facility] [address] [id number] [address] [place] [address], [place] [address] Jul, [facility] [address] [id number] [address] [place] [address], [place] [address] Jul, [facility] [address] [id number] [address] [place] [address], [place] [address] Jun, [facility] [address] [id number] [address] [place] [address], [place] [address] Jun, [facility] [address] [id number] [address] [place] [address], [place] [address] Jun, [facility] [address] [id number] [address] [place] [address], [place] [address] Jun, [facility] [address] [id number] [address] [place] [address], [place] [address] Jun, [facility] [address] [id number] [address] [place] [address], [place] [address] May, [facility] [address] [id number] [address] [place] [address], [place] [address] May, [facility] [address] [id number] [address] [place] [address], [place] [address] May, [facility] [address] [id number] [address] [place] [address], [place] [address] May, [facility] [address] [id number] [address] [place] [address], [place] [address] 18 May, 2013 [facility] [address] [id number] [address] [place] [address], [place] [address] 18 May, 2013 [facility] [address] [id number] [address] [place] [address], [place] [address] 14 May, 2013 [facility] [address] [id number] [address] [place] [address], [place] [address] 12 May, 2013 [facility] [address] [id number] [address] [place] [address], [place] [address] 11 May, 2013 [facility] [address] [id number] [address] [place] [address], [place] [address] 10 May, 2013 [facility] [address] [id number] [address] [place] [address], [place] [address] 10 May, 2013 [facility] [address] [id number] [address] [place] [address], [place] [address] 27 Apr, 2013 [facility] [address] [id number] [address] [place] [address], [place] [address] 19 Apr, 2013 [facility] [address] [id number] [address] [place] [address], [place] [address] 18 Jan, 2013 [facility] [address] [id number] [address] [place] [address], [place] [address] 16 Jan, 2013 [facility] [address] [id number] [address] [place] [address], [place] [address] Dec, [facility] [address] [id number] [address] [place] [address], [place] [address] Dec, [facility] [address] [id number] [address] [place] [address], [place] [address] November, [facility] [address] [id number] [address] [place] [address], [place] [address] November, [facility] [address] [id number] [address] [place] [address], [place] [address] November, [facility] [address] [id number] [address] [place] [address], [place] [address] November, [facility] [address] [id number] [address] [place] [address], [place] [address] 24 Oct, 2012 [facility] [address] [id number] [address] [place] [address], [place] [address] 14 Sep, 2012 [facility] [address] [id number] [address] [place] [address], [place] [address] Sep, [facility] [address] [id number] [address] [place] [address], [place] [address] 15 Sep, 2012 [facility] [address] [id number] [address] [place] [address], [place] [address] 14 Sep, 2012 [facility] [address] [id number] [address] [place] [address], [place] [address] 08 Sep, 2012 [facility] [address] [id number] [address] [place] [address], [place] [address] 04 Sep, 2012 [facility] [address] [id number] [address] [place] [address], [place] [address] 30 Aug, 2012 [facility] [address] [id number] [address] [place] [address], [place] [address] Aug, [facility] [address] [id number] [address] [place] [address], [place] [address] Jul, [facility] [address] [id number] [address] [place] [address], [place] [address] Jul, [facility] [address] [id number] [address] [place] [address], [place] [address] Jun, [facility] [address] [id number] [address] [place] [address], [place] [address] 15 Jun, 2012 [facility] [address] [id number] [address] [place] [address], [place] [phone] 15 Jun, 2012 [facility] [address] [id number] [address] [place] [address], [place] [phone] May, [facility] [address] [id number] [address] [place] [phone] May, [facility] [address] [id number] [address] [place] [phone] May, [facility] [address] [id number] [address] [place] [phone] May, [facility] [address] [id number] [address] [place] [id number] Apr, [facility] [address] [id number] [address] [place] [phone] Apr, [facility] [address] [id number] [address] [place] [phone] Sep, [facility] [address] [id number] [address] [place] [phone] Mar, [facility] [address] [id number] [address] [place] [phone] Jan, [facility] [address] [id number] [address] [place] [phone] Oct, [facility] [address] [id number] [address] [place] [phone] May, IMMUNIZATIONS No Known Immunizations SOCIAL HISTORY Never Assessed REASON FOR VISIT PLAN OF CARE VITAL SIGNS MEDICATIONS Unknown Medications RESULTS No Results PROCEDURES No Known procedures INSTRUCTIONS MEDICATIONS ADMINISTERED No Known Medications MEDICAL (GENERAL) HISTORY Type Description Date Medical History asthma Medical History kidney stones Medical History HSV 1 [employer] Surgical History thumb broken age 11 Surgical History kidney stone removed 03/18/2016 Hospitalization History kidney stones/ dehydration/ UTI Dece mber 2013 Hospitalization History ER visit for knee injury March 2018
--- OUTSIDE RECORDS SUMMARY | 2020-01-11 23:02 | XMS REPORT ---
Author Author Cedric MCPHERSON Organization [facility] Address [address] [place] [address] Care Team Providers Care Court Supervisor Name Role Phone RONDA MCPHERSON Unavailable PROBLEMS Type Condition ICD9-CM Code MGU70-KM Code Onset Dates Condition S tatus SNOMED Code Problem Other chronic pain G89.29 Active 8 0743812 Problem Seasonal allergies J30.2 Active 4 94230164 Problem Asthma, exercise induced J45.990 Activ e 98310624 Problem Recurrent kidney stones N20.0 Active [id number] ALLERGIES No Information ENCOUNTERS Encounter Location Date Diagnosis [facility] [address] [facility] [id number] [address] [place] [address] Aug, Fever R50.9 and Flu-like sym ptoms R68.89 [facility] [address] [address] Jul, care in first trimester Z34.91 [facility] [address] [address] Jul, [place] [address] [address] Jul, Currently in first trimester wi th unknown gestational age Z34.91 and care in first trimester Z34.91 [facility] [address] [address] 13 Jul, 2019 care in first trimester Z34.91 [place] [address] [address] Jul, Currently in first trimester wi th unknown gestational age Z34.91 and care, first in first trimester Z34.01 [place] [address] [address] May, [facility] [address] [address] Apr, Sprain of left knee, unspecified ligamen t, initial encounter S83.92XA [place] [address] [address] Mar, [place] [address] [address] Mar, [place] [address] [address] Mar, Injury of left knee, initial encounter S 89.92XA and Acute pain of left knee M25.562 [facility] [address] [facility] [id number] [address] [place] [address] Dec, Seasonal allergies J30.2 ; C ough R05 and Gagging episode R19.8 [place] [address] [address] November, Sore throat J02.9 ; Otalgia, bilateral H 92.03 and Allergic rhinitis, unspecified seasonality, unspecified trigger J30.9 [place] [address] [address] Oct, [place] [address] [address] Jun, Encounter for Depo-Provera contraception Z30.42 [place] [address] [address] Mar, Encounter for Depo-Provera contraception Z30.42 [place] [address] [address] Jan, test negative Z32.02 [place] [address] [address] Dec, Surveillance for control, oral con traceptives Z30.41 and Encounter for Depo-Provera contraception Z30.42 [place] [address] [address] November, Well woman exam without gynecological ex am Z00.00 [place] [address] [address] Sep, Pharyngitis due to other organism J02.8 [place] [address] [address] Aug, [place] [address] [address] Aug, [place] [address] [address] Aug, Vaginal candidiasis B37.3 [place] [address] [address] Aug, Vaginal candidiasis B37.3 [place] [address] [address] 14 Apr, 2016 Visit for TB skin test Z11.1 [place] [address] [address] 31 Mar, 2016 Visit for TB skin test Z11.1 and Screeni ng for tuberculosis Z11.1 [place] [address] [address] 16 Mar, 2016 Routine health maintenance Z00.00 and Re current kidney stones N20.0 [place] [address] [address] 05 Mar, 2016 Ingrown right greater toenail L60.0 and Acute non-recurrent frontal sinusitis J01.10 [place] [address] [address] 03 Mar, 2016 Ingrowing right great toenail L60.0 and Recurrent kidney stones N20.0 [place] [address] [address] 08 Jan, 2016 Well woman exam without gynecological ex am Z00.00 and Encounter for surveillance of contraceptive pills Z30.41 [place] [address] [place] [id number] [place] [address] Oct, Surveillance for control, oral con traceptives Z30.41 and Sore throat J02.[address] [address] Sep, Renal calculi N20.[address] [address] Aug, Surveillance of contraceptive injection Z30.42 ; Encounter for Depo- Provera contraception Z30.42 and Encounter for counseling regarding contraception Z30.[address] [address] Aug, Asthma, exercise induced J45.[address] [address] May, [id number] [id number] Mar, Sports physical V70.3 ; Exercise compliance counsel ing V65.41 ; Dietary counseling V65.3 and Asthma 493.[address] [address] Mar, Encounter for contraceptive management V 25.[address] [address] Jan, Routine child health exam V20.2 ; GARDAS IL (HPV) DX V04.89 ; MENINGOCOCCAL DX V03.89 ; Dietary counseling and surveillance V65.3 ; Exercise counseling V65.41 and Recurrent nephrolithiasis 592.[address] [address] Jan, Kidney stone 592.[address] [address] Jan, Herpes simplex without mention of compli cation 054.[address] [address] Dec, [facility] [address] [id number] [place] [address] 15 Nov, 2014 Encounter for contraceptive management V 25.9 [facility] [address] [id number] [place] [address] 14 Oct, 2014 [facility] [address] [id number] [place] [address] Oct, [facility] [address] [id number] [place] [address] Sep, [facility] [address] [id number] [place] [address] Sep, [facility] [address] [id number] [place] [address] Sep, [facility] [address] [id number] [place] [address] Sep, [facility] [address] [place] [id number] [place] [address] Aug, [facility] [address] [id number] [place] [address] Aug, [facility] [address] [place] [id number] [place] [address] Aug, [facility] [address] [id number] [place] [address] Aug, [facility] [address] [place] [id number] [place] [address] Jul, [facility] [address] [id number] [place] [address] Jul, [facility] [address] [place] [id number] [place] [address] Jul, [facility] [address] [id number] [place] [address] Jul, [facility] [address] [id number] [place] [address] Jul, [facility] [address] [id number] [place] [address] Jul, [facility] [address] [id number] [place] [address] Jul, [facility] [address] [id number] [place] [address] Jul, [facility] [address] [id number] [place] [address] Jul, [facility] [address] [id number] [place] [address] Jun, [facility] [address] [id number] [place] [address] Jun, [facility] [address] [id number] [place] [address] Jun, [facility] [address] [id number] [place] [address] Jun, [facility] [address] [id number] [place] [address] Jun, [facility] [address] [id number] [place] [address] Jun, [facility] [address] [id number] [place] [address] Jun, [facility] [address] [id number] [place] [address] Jun, [facility] [address] [id number] [place] [address] Jun, [facility] [address] [id number] [place] [address] Jun, [facility] [address] [id number] [place] [address] Jun, [facility] [address] [id number] [place] [address] Jun, [facility] [address] [id number] [place] [address] Jun, 2013 [facility] [address] [facility] [id number] [place] [address] Jun, 2013 [facility] [address] [facility] [id number] [place] [address] May, [facility] [address] [id number] [place] [address] 15 May, 2014 [facility] [address] [facility] [id number] [place] [address] May, [facility] [address] [facility] [id number] [place] [address] May, [facility] [address] [id number] [place] [address] May, [facility] [address] [id number] [place] [address] May, 2013 [facility] [address] [id number] [place] [address] May, 2013 [facility] [address] [id number] [place] [address] May, 2013 [facility] [address] [id number] [place] [address] May, [facility] [address] [id number] [place] [address] May, [facility] [address] [id number] [place] [address] Mar, [facility] [address] [facility] [id number] [place] [address] Mar, [facility] [address] [id number] [place] [address] Jan, 2013 [facility] [address] [id number] [place] [address] Jan, 2013 [facility] [address] [id number] [place] [address] Jan, 2013 [facility] [address] [id number] [place] [address] Jan, [facility] [address] [facility] [id number] [place] [address] Jan, [facility] [address] [id number] [place] [address] Jan, [facility] [address] [id number] [place] [address] November, [facility] [address] [id number] [place] [address] November, [facility] [address] [id number] [place] [address] November, [facility] [address] [id number] [place] [address] November, [facility] [address] [id number] [place] [address] Oct, [facility] [address] [id number] [place] [address] Oct, [facility] [address] [id number] [place] [address] Oct, [facility] [address] [id number] [place] [address] Oct, [facility] [address] [id number] [place] [address] Sep, [facility] [address] [id number] [place] [address] Sep, [facility] [address] [id number] [place] [address] Sep, [facility] [address] [id number] [place] [address] Sep, [facility] [address] [id number] [place] [address] Aug, [facility] [address] [id number] [place] [address] Aug, [facility] [address] [id number] [place] [address] Aug, [facility] [address] [id number] [place] [address] Aug, [facility] [address] [id number] [place] [address] Aug, [facility] [address] [id number] [place] [address] Aug, [facility] [address] [id number] [place] [address] Jul, [facility] [address] [id number] [place] [address] Jul, [facility] [address] [id number] [place] [address] Jul, [facility] [address] [id number] [place] [address] Jul, [facility] [address] [id number] [place] [address] Jun, [facility] [address] [id number] [place] [address] Jun, [facility] [address] [id number] [place] [address] Jun, [facility] [address] [id number] [place] [address] Jun, [facility] [address] [id number] [place] [address] Jun, [facility] [address] [id number] [place] [address] May, [facility] [address] [place] [id number] [place] [address] May, [facility] [address] [id number] [place] [address] May, [facility] [address] [id number] [place] [address] 19 May, 2013 [facility] [address] [facility] [id number] [place] [address] 18 May, 2013 [facility] [address] [facility] [id number] [place] [address] 18 May, 2013 [facility] [address] [id number] [place] [address] 14 May, 2013 [facility] [address] [facility] [id number] [place] [address] 12 May, 2013 [facility] [address] [facility] [id number] [facility] [address] 11 May, 2013 [facility] [address] [id number] [place] [address] 10 May, 2013 [facility] [address] [id number] [place] [address] 10 May, 2013 [facility] [address] [id number] [place] [address] 27 Apr, 2013 [facility] [address] [facility] [id number] [place] [address] 19 Apr, 2013 [facility] [address] [id number] [place] [address] 18 Jan, 2013 [facility] [address] [id number] [place] [address] 16 Jan, 2013 [facility] [address] [id number] [place] [address] Dec, [facility] [address] [facility] [id number] [place] [address] Dec, [facility] [address] [id number] [place] [address] November, [facility] [address] [id number] [place] [address] November, [facility] [address] [id number] [place] [address] November, [facility] [address] [id number] [place] [address] November, [facility] [address] [id number] [place] [address] 24 Oct, 2012 [facility] [address] [id number] [place] [address] Sep, [facility] [address] [id number] [place] [address] Sep, [facility] [address] [id number] [place] [address] 15 Sep, 2012 [facility] [address] [id number] [place] [address] Sep, [facility] [address] [id number] [place] [address] 08 Sep, 2012 [facility] [address] [place] [id number] [place] [address] Sep, [facility] [address] [place] [id number] [place] [address] Aug, [facility] [address] [id number] [place] [address] Aug, [facility] [address] [place] [id number] [place] [address] Jul, [facility] [address] [place] [id number] [place] [address] Jul, [facility] [address] [id number] [place] [address] Jun, [facility] [address] [id number] [place] [address] Jun, [facility] [address] [place] [id number] [place] [address] Jun, [facility] [address] [id number] [place] [address] May, [facility] [address] [place] [id number] [place] [address] May, [facility] [address] [id number] [place] [address] May, [facility] [address] [id number] [place] [address] May, [facility] [address] [id number] [place] [address] Apr, [facility] [address] [id number] [place] [address] Apr, [facility] [address] [id number] [place] [address] Sep, [facility] [address] [id number] [place] [address] Mar, [facility] [address] [id number] [place] [address] Jan, [facility] [address] [id number] [place] [address] Oct, [facility] [address] [id number] [place] [address] May, IMMUNIZATIONS No Known Immunizations SOCIAL HISTORY Never Assessed REASON FOR VISIT PLAN OF CARE VITAL SIGNS Height 63 in 2013-10-31 Weight 140 lbs 2013-10-31 Temperature 98.2 degrees Fahrenheit 2013-10-31 Heart Rate 73 bpm 2013-10-31 Respiratory Rate 16 2013-10-31 Blood pressure systolic 117 mmHg 2013-10-31 Blood pressure diastolic 61 mmHg 2013-10-31 MEDICATIONS No Known Medications RESULTS No Results PROCEDURES Procedure Date Ordered Result Body Site Medroxyprogesterone inj October 31, 2013 URINE TEST October 31, 2013 INSTRUCTIONS MEDICATIONS ADMINISTERED No Known Medications MEDICAL (GENERAL) HISTORY Type Description Date Medical History asthma Medical History kidney stones Medical History HSV 1 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
--- OUTSIDE RECORDS SUMMARY | 2020-01-11 23:02 | XMS REPORT ---
Author Author Cedric COFFEY Organization [facility] Address [address] [place] [address] Care Team Providers Care Manager Multimedia Name Role Phone CATARINA COFFEY Unavailable PROBLEMS Type Condition ICD9-CM Code XPG30-GM Code Onset Dates Condition S tatus SNOMED Code Problem Other chronic pain G89.29 Active 8 5166499 Problem Seasonal allergies J30.2 Active 4 32590221 Problem Asthma, exercise induced J45.990 Activ e 97873864 Problem Recurrent kidney stones N20.0 Active 43991366 ALLERGIES No Information ENCOUNTERS Encounter Location Date Diagnosis [facility] [address] [facility] [id number] [address] [place] [address] Aug, Fever R50.9 and Flu-like sym ptoms R68.89 [facility] [id number] [place] [address] Jul, care in first trimester Z34.91 [place] [address] [address] Jul, [place] [address] [address] Jul, Currently in first trimester wi th unknown gestational age Z34.91 and care in first trimester Z34.91 [facility] [address] [address] Jul, care in first trimester Z34.91 [place] [address] [address] Jul, Currently in first trimester wi th unknown gestational age Z34.91 and care, first in first trimester Z34.01 [place] [address] [address] May, [facility] [address] [address] Apr, Sprain of left knee, unspecified ligamen t, initial encounter S83.92XA [place] [address] [address] Mar, [facility] [address] [address] Mar, [place] [address] [address] Mar, Injury of left knee, initial encounter S 89.92XA and Acute pain of left knee M25.562 [facility] [address] [facility] [id number] [address] [place] [address] Dec, Seasonal allergies J30.2 ; C ough R05 and Gagging episode R19.8 [place] [address] [address] November, Sore throat J02.9 ; Otalgia, bilateral H 92.03 and Allergic rhinitis, unspecified seasonality, unspecified trigger J30.9 [place] [address] [address] Oct, [place] [address] [address] Jun, Encounter for Depo-Provera contraception Z30.42 [place] [address] [address] Mar, Encounter for Depo-Provera contraception Z30.42 [place] [address] [address] Jan, test negative Z32.02 [place] [address] [address] Dec, Surveillance for control, oral con traceptives Z30.41 and Encounter for Depo-Provera contraception Z30.42 [place] [address] [address] November, Well woman exam without gynecological ex am Z00.00 [place] [address] [address] Sep, Pharyngitis due to other organism J02.8 [place] [address] [address] Aug, [place] [address] [address] Aug, [place] [address] [address] Aug, Vaginal candidiasis B37.3 [place] [address] [address] Aug, Vaginal candidiasis B37.3 [place] [address] [address] 14 Apr, 2016 Visit for TB skin test Z11.1 [place] [address] [address] 31 Mar, 2016 Visit for TB skin test Z11.1 and Screeni ng for tuberculosis Z11.1 [place] [address] [address] 16 Mar, 2016 Routine health maintenance Z00.00 and Re current kidney stones N20.0 [place] [address] [address] 05 Mar, 2016 Ingrown right greater toenail L60.0 and Acute non-recurrent frontal sinusitis J01.10 [place] [address] [address] 03 Mar, 2016 Ingrowing right great toenail L60.0 and Recurrent kidney stones N20.0 [place] [address] [address] 08 Jan, 2016 Well woman exam without gynecological ex am Z00.00 and Encounter for surveillance of contraceptive pills Z30.41 [place] [address] [address] Oct, Surveillance for control, oral con traceptives Z30.41 and Sore throat J02.[address] [address] Sep, Renal calculi N20.[address] [address] Aug, Surveillance of contraceptive injection Z30.42 ; Encounter for Depo- Provera contraception Z30.42 and Encounter for counseling regarding contraception Z30.[address] [address] Aug, Asthma, exercise induced J45.[address] [address] May, [id number] [id number] Mar, Sports physical V70.3 ; 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 ; Dietary counseling V65.3 and Asthma 493.[address] [address] Mar, Encounter for contraceptive management V 25.[address] [address] Jan, Routine child health exam V20.2 ; [place] (HPV) DX V04.89 ; MENINGOCOCCAL DX V03.89 ; Dietary counseling and surveillance V65.3 ; Exercise counseling V65.41 and Recurrent nephrolithiasis 592.[address] [address] Jan, Kidney stone 592.[address] [address] Jan, Herpes simplex without mention of compli cation 054.[address] [address] Dec, [facility] [address] [id number] [place] [address] 15 Nov, 2014 Encounter for contraceptive management V 25.9 [facility] [address] [id number] [place] [address] 14 Oct, 2014 [facility] [address] [id number] [place] [address] Oct, [facility] [address] [id number] [place] [address] 12 Sep, 2014 [facility] [address] [id number] [place] [address] Sep, [facility] [address] [id number] [place] [address] 10 Sep, 2014 [facility] [address] [id number] [place] [address] Sep, [facility] [address] [id number] [place] [address] Aug, [facility] [address] [id number] [place] [address] Aug, [facility] [address] [id number] [place] [address] Aug, [facility] [address] [id number] [place] [address] Aug, [facility] [address] [id number] [place] [address] Jul, [facility] [address] [id number] [place] [address] Jul, [facility] [address] [id number] [place] [address] Jul, [facility] [address] [id number] [place] [address] Jul, [facility] [address] [id number] [place] [address] Jul, [facility] [address] [id number] [place] [address] Jul, [facility] [address] [id number] [place] [address] Jul, [facility] [address] [id number] [place] [address] Jul, [facility] [address] [id number] [place] [address] Jul, [facility] [address] [id number] [place] [address] Jun, [facility] [address] [id number] [place] [address] Jun, [facility] [address] [id number] [place] [address] Jun, [facility] [address] [id number] [place] [address] Jun, [facility] [address] [id number] [place] [address] Jun, [facility] [address] [id number] [place] [address] Jun, [facility] [address] [id number] [place] [address] Jun, [facility] [address] [id number] [place] [address] Jun, [facility] [address] [id number] [place] [address] Jun, [facility] [address] [id number] [place] [address] Jun, [facility] [id number] [place] [address] Jun, [facility] [address] [id number] [place] [address] Jun, [facility] [address] [id number] [place] [address] Jun, [facility] [address] [id number] [place] [address] Jun, [facility] [address] [id number] [place] [address] May, [facility] [address] [id number] [place] [address] 15 May, 2013 [facility] [address] [id number] [place] [address] May, [facility] [address] [facility] [id number] [place] [address] May, 2013 [facility] [address] [id number] [place] [address] May, 2013 [facility] [address] [id number] [place] [address] May, 2013 [facility] [address] [id number] [place] [address] May, 2013 [facility] [address] [id number] [place] [address] May, 2013 [facility] [address] [id number] [place] [address] May, [facility] [address] [id number] [place] [address] May, [facility] [address] [id number] [place] [address] Mar, [facility] [address] [id number] [place] [address] Mar, 2013 [facility] [address] [id number] [place] [address] Jan, [facility] [address] [id number] [place] [address] Jan, 2013 [facility] [address] [id number] [place] [address] Jan, 2013 [facility] [address] [id number] [place] [address] Jan, [facility] [address] [facility] [id number] [place] [address] Jan, [facility] [address] [facility] [id number] [place] [address] Jan, [facility] [address] [id number] [place] [address] November, [facility] [address] [id number] [place] [address] November, [facility] [address] [facility] [id number] [place] [address] November, [facility] [address] [id number] [place] [address] November, [facility] [address] [id number] [place] [address] Oct, [facility] [address] [id number] [place] [address] Oct, [facility] [address] [id number] [place] [address] Oct, [facility] [address] [id number] [place] [address] Oct, [facility] [address] [id number] [place] [address] Sep, [facility] [address] [id number] [place] [address] Sep, [facility] [address] [id number] [place] [address] Sep, [facility] [address] [id number] [place] [address] Sep, [facility] [address] [id number] [place] [address] Aug, [facility] [address] [id number] [place] [address] Aug, [facility] [address] [id number] [place] [address] Aug, [facility] [address] [id number] [place] [address] Aug, [facility] [address] [id number] [place] [address] Aug, [facility] [address] [id number] [place] [address] Aug, [facility] [address] [id number] [place] [address] Jul, [facility] [address] [id number] [place] [address] Jul, [facility] [address] [id number] [place] [address] Jul, [facility] [address] [id number] [place] [address] Jul, [facility] [address] [id number] [place] [address] Jun, [facility] [address] [id number] [place] [address] Jun, [facility] [address] [id number] [place] [address] Jun, [facility] [address] [id number] [place] [address] Jun, [facility] [address] [id number] [place] [address] Jun, [facility] [address] [id number] [place] [address] May, [facility] [id number] [place] [address] May, [facility] [address] [id number] [place] [address] May, [facility] [address] [id number] [place] [address] May, [facility] [address] [facility] [id number] [place] [address] 18 May, 2013 [facility] [address] [facility] [id number] [place] [address] 18 May, 2013 [facility] [address] [id number] [place] [address] 14 May, 2013 [facility] [address] [id number] [place] [address] 12 May, 2013 [facility] [address] [facility] [id number] [place] [address] 11 May, 2013 [facility] [address] [id number] [place] [address] 10 May, 2013 [facility] [address] [id number] [place] [address] 10 May, 2013 [facility] [address] [id number] [place] [address] 27 Apr, 2013 [facility] [address] [id number] [place] [address] Apr, [facility] [address] [id number] [place] [address] 18 Jan, 2013 [facility] [address] [id number] [place] [address] 16 Jan, 2013 [facility] [address] [id number] [place] [address] Dec, [facility] [address] [id number] [place] [address] Dec, [facility] [address] [id number] [place] [address] November, [facility] [address] [id number] [place] [address] November, [facility] [address] [id number] [place] [address] November, [facility] [address] [id number] [place] [address] November, [facility] [address] [id number] [place] [address] 24 Oct, 2012 [facility] [address] [id number] [place] [address] Sep, [facility] [address] [id number] [place] [address] Sep, [facility] [id number] [place] [address] 15 Sep, 2012 [facility] [address] [id number] [place] [address] Sep, [facility] [id number] [place] [address] 08 Sep, 2012 [facility] [id number] [place] [address] Sep, [facility] [id number] [place] [address] Aug, [facility] [address] [id number] [place] [address] Aug, [facility] [id number] [place] [address] Jul, [facility] [address] [id number] [place] [address] Jul, [facility] [id number] [place] [address] Jun, [facility] [address] [id number] [place] [address] 15 Jun, 2012 [facility] [id number] [place] [address] Jun, [facility] [address] [id number] [place] [address] May, [facility] [id number] [place] [address] May, [facility] [address] [id number] [place] [address] May, [facility] [address] [id number] [place] [address] May, [facility] [address] [id number] [place] [address] Apr, [facility] [address] [id number] [place] [address] Apr, [facility] [address] [id number] [place] [address] Sep, [facility] [address] [id number] [place] [address] Mar, [facility] [address] [id number] [place] [address] Jan, [facility] [address] [id number] [place] [address] Oct, [facility] [address] [id number] [place] [address] May, IMMUNIZATIONS No Known Immunizations SOCIAL HISTORY Never Assessed REASON FOR VISIT PLAN OF CARE VITAL SIGNS Height 63 in 2013-12-20 Weight 146.38 lbs 2013-12-20 Temperature 98 degrees Fahrenheit 2013-12-20 Heart Rate 85 bpm 2013-12-20 Respiratory Rate 16 2013-12-20 Blood pressure systolic 124 mmHg 2013-12-20 Blood pressure diastolic 73 mmHg 2013-12-20 MEDICATIONS No Known Medications RESULTS No Results PROCEDURES No Known procedures INSTRUCTIONS MEDICATIONS ADMINISTERED No Known Medications MEDICAL (GENERAL) HISTORY Type Description Date Medical History asthma Medical History kidney stones Medical History HSV 1 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
--- OUTSIDE RECORDS SUMMARY | 2020-01-11 23:03 | XMS REPORT ---
Author Author Cedric MCPHERSON Organization [facility] Address [address] [place] [address] Care Team Providers Care School Administrator Name Role Phone RONDA MCPHERSON Unavailable PROBLEMS Type Condition ICD9-CM Code JVV87-NE Code Onset Dates Condition S tatus SNOMED Code Problem Other chronic pain G89.29 Active 8 3903516 Problem Seasonal allergies J30.2 Active 4 00281108 Problem Asthma, exercise induced J45.990 Activ e 21341986 Problem Recurrent kidney stones N20.0 Active [id number] ALLERGIES No Information ENCOUNTERS Encounter Location Date Diagnosis [facility] [address] [address] May, [facility] [address] [address] Apr, Sprain of left knee, unspeci fied ligament, initial encounter S83.92XA [place] [address] [place] [id number] [place] [address] Mar, [facility] [address] [address] Mar, [facility] [address] [address] Mar, Injury of left knee, initial encounter S89.92XA and Acute pain of left knee M25.562 [facility] [address] [address] Dec, Seasonal allergies J30.2 ; C ough R05 and Gagging episode R19.8 [facility] [address] [place] [id number] [place] [address] 16 May, 2018 Sore throat J02.9 ; Otalgia, bilateral H92.03 and Allergic rhinitis, unspecified seasonality, unspecified trigger J30.9 [place] [id number] [facility] [id number] [address] [place] [address] Oct, [place] [address] [facility] [id number] [address] [place] [address] Jun, Encounter for Depo-Provera c ontraception Z30.42 [place] [address] [facility] [id number] [address] [place] [address] Mar, Encounter for Depo-Provera c ontraception Z30.42 [place] [address] [place] [id number] [place] [address] Jan, test negative Z32. 02 [place] [address] [place] [id number] [address] [place] [address] Dec, Surveillance for contr ol, oral contraceptives Z30.41 and Encounter for Depo-Provera contraception Z30.42 [place] [address] [place] [id number] [address] [place] [address] November, Well woman exam without gyne cological exam Z00.00 [place] [address] [place] [id number] [address] [place] [address] Sep, Pharyngitis due to other org anism J02.8 [place] [address] [facility] [id number] [address] [place] [address] Aug, [place] [address] [facility] [id number] [address] [place] [address] Aug, [place] [address] [place] [id number] [place] [address] Aug, Vaginal candidiasis B37.3 [place] [address] [place] [id number] [address] [place] [address] Aug, Vaginal candidiasis B37.3 [place] [address] [place] [id number] [address] [place] [address] 14 Apr, 2016 Visit for TB skin test Z11.1 [place] [address] [address] Mar, Visit for TB skin test Z11.1 and Screening for tuberculosis Z11.1 [place] [address] [address] Mar, Routine health maintenance Z 00.00 and Recurrent kidney stones N20.0 [place] [address] [address] Mar, Ingrown right greater toenai l L60.0 and Acute non-recurrent frontal sinusitis J01.10 [place] [address] [address] Mar, Ingrowing right great toenai l L60.0 and Recurrent kidney stones N20.0 [place] [address] [address] Dec, Well woman exam without gyne cological exam Z00.00 and Encounter for surveillance of contraceptive pills Z30.[address] [address] Oct, Surveillance for contr ol, oral contraceptives Z30.41 and Sore throat J02.9 [place] [address] [place] [id number] [place] [address] Sep, Renal calculi N20.0 [place] [address] [place] [id number] [place] [address] Aug, Surveillance of contraceptiv e injection Z30.42 ; Encounter for Depo-Provera contraception Z30.42 and Encounter for counseling regarding contraception Z30.9 [place] [address] [place] [id number] [place] [address] Aug, Asthma, exercise induced J45 .990 [place] [address] [place] [id number] [place] [address] May, [facility] [place] [address] [id number] [place] [id number] Mar, Sports physical V70.3 ; Exer cise counseling V65.41 ; Dietary counseling V65.3 and Asthma 493.90 [facility] [address] [facility] [id number] [address] [place] [address] Mar, Encounter for contraceptive management V25.9 [facility] [address] [id number] [address] [place] [address] Jan, Routine child health exam V2 0.2 ; GARDASIL (HPV) DX V04.89 ; MENINGOCOCCAL DX V03.89 ; Dietary counseling and surveillance V65.3 ; Exercise counseling V65.41 and Recurrent nephrolithiasis 592.0 [facility] [address] [facility] [id number] [address] [place] [address] Jan, Kidney stone 592.0 [facility] [address] [facility] [id number] [address] [place] [address] Jan, Herpes simplex without menti on of complication 054.9 [facility] [address] [facility] [id number] [address] [place] [address] Dec, [facility] [address] [facility] [id number] [address] [place] [address] November, Encounter for contraceptive management V25.9 [facility] [address] [id number] [address] [place] [address] Oct, [facility] [address] [id number] [address] [place] [address] Oct, [facility] [address] [facility] [id number] [address] [place] [address] Sep, [facility] [address] [facility] [id number] [address] [place] [address] Sep, [facility] [address] [facility] [id number] [address] [place] [address] Sep, [facility] [address] [id number] [address] [place] [address], [place] [address] Sep, [facility] [address] [id number] [address] [place] [address], [place] [address] Aug, [facility] [address] [id number] [address] [place] [address], [place] [address] Aug, [facility] [address] [id number] [address] [place] [address], [place] [address] Aug, [facility] [address] [id number] [address] [place] [address], [place] [address] Aug, [facility] [address] [id number] [address] [place] [address], [place] [address] Jul, [facility] [address] [id number] [address] [place] [address], [place] [address] Jul, [facility] [address] [id number] [address] [place] [address], [place] [address] Jul, [facility] [address] [id number] [address] [place] [address], [place] [address] Jul, [facility] [address] [id number] [address] [place] [address], [place] [address] Jul, [facility] [address] [id number] [address] [place] [address], [place] [address] Jul, [facility] [address] [id number] [address] [place] [address], [place] [address] Jul, [facility] [address] [id number] [address] [place] [address], [place] [address] Jul, [facility] [address] [id number] [address] [place] [address], [place] [address] Jul, [facility] [address] [id number] [address] [place] [address], [place] [address] Jun, [facility] [address] [id number] [address] [place] [address], [place] [address] Jun, [facility] [address] [id number] [address] [place] [address], [place] [address] Jun, [facility] [address] [id number] [address] [place] [address], [place] [address] Jun, [facility] [address] [id number] [address] [place] [address], [place] [address] Jun, [facility] [address] [id number] [address] [place] [address], [place] [address] Jun, [facility] [address] [id number] [address] [place] [address], [place] [address] Jun, [facility] [address] [id number] [address] [place] [address], [place] [address] Jun, [facility] [address] [id number] [address] [place] [address], [place] [address] Jun, [facility] [address] [id number] [address] [place] [address], [place] [address] Jun, [facility] [address] [id number] [address] [place] [address], [place] [address] Jun, [facility] [address] [id number] [address] [place] [address], [place] [address] Jun, [facility] [address] [id number] [address] [place] [address], [place] [address] Jun, [facility] [address] [id number] [address] [place] [address], [place] [address] Jun, [facility] [address] [id number] [address] [place] [address], [place] [address] 15 May, 2014 [facility] [address] [id number] [address] [place] [address], [place] [address] 15 May, 2014 [facility] [address] [id number] [address] [place] [address], [place] [address] May, 2013 [facility] [address] [id number] [address] [place] [address], [place] [address] May, 2013 [facility] [address] [id number] [address] [place] [address], [place] [address] May, [facility] [address] [id number] [address] [place] [address], [place] [address] May, 2013 [facility] [address] [id number] [address] [place] [address], [place] [address] May, 2013 [facility] [address] [id number] [address] [place] [address], [place] [address] May, [facility] [address] [id number] [address] [place] [address], [place] [address] May, [facility] [address] [id number] [address] [place] [address], [place] [address] May, [facility] [address] [id number] [address] [place] [address], [place] [address] Mar, [facility] [address] [id number] [address] [place] [address], [place] [address] Mar, [facility] [address] [id number] [address] [place] [address], [place] [address] Jan, 2013 [facility] [address] [id number] [address] [place] [address], [place] [address] Jan, 2013 [facility] [address] [id number] [address] [place] [address] Jan, [facility] [address] [id number] [address] [place] [address], [place] [address] Jan, [facility] [address] [id number] [address] [place] [address], [place] [address] Jan, [facility] [address] [id number] [address] [place] [address], [place] [address] Jan, [facility] [address] [id number] [address] [place] [address], [place] [address] November, [facility] [address] [id number] [address] [place] [address], [place] [address] November, [facility] [address] [id number] [address] [place] [address], [place] [address] November, [facility] [address] [id number] [address] [place] [address], [place] [address] November, [facility] [address] [id number] [address] [place] [address], [place] [address] Oct, [facility] [address] [id number] [address] [place] [address], [place] [address] Oct, [facility] [address] [id number] [address] [place] [address], [place] [address] Oct, [facility] [address] [id number] [address] [place] [address], [place] [address] Oct, [facility] [address] [id number] [address] [place] [address], [place] [address] Sep, [facility] [address] [id number] [address] [place] [address], [place] [address] Sep, [facility] [address] [id number] [address] [place] [address], [place] [address] Sep, [facility] [address] [id number] [address] [place] [address], [place] [address] Sep, [facility] [address] [id number] [address] [place] [address], [place] [address] Aug, [facility] [address] [id number] [address] [place] [address], [place] [address] Aug, [facility] [address] [id number] [address] [place] [address], [place] [address] Aug, [facility] [address] [id number] [address] [place] [address], [place] [address] Aug, [facility] [address] [id number] [address] [place] [address], [place] [address] Aug, [facility] [address] [id number] [address] [place] [address], [place] [address] Aug, [facility] [address] [id number] [address] [place] [address], [place] [address] Jul, [facility] [address] [id number] [address] [place] [address], [place] [address] Jul, [facility] [address] [id number] [address] [place] [address], [place] [address] Jul, [facility] [address] [id number] [address] [place] [address], [place] [address] Jul, [facility] [address] [id number] [address] [place] [address], [place] [address] Jun, [facility] [address] [id number] [address] [place] [address], [place] [address] Jun, [facility] [address] [id number] [address] [place] [address], [place] [address] Jun, [facility] [address] [id number] [address] [place] [address], [place] [address] Jun, [facility] [address] [id number] [address] [place] [address], [place] [address] Jun, [facility] [address] [id number] [address] [place] [address], [place] [address] May, [facility] [address] [id number] [address] [place] [address], [place] [address] May, [facility] [address] [id number] [address] [place] [address], [place] [address] May, [facility] [address] [id number] [address] [place] [address], [place] [address] May, [facility] [address] [id number] [address] [place] [address], [place] [address] 18 May, 2013 [facility] [address] [id number] [address] [place] [address], [place] [address] 18 May, 2013 [facility] [address] [id number] [address] [place] [address], [place] [address] 14 May, 2013 [facility] [address] [id number] [address] [place] [address], [place] [address] 12 May, 2013 [facility] [address] [id number] [address] [place] [address], [place] [address] 11 May, 2013 [facility] [address] [id number] [address] [place] [address], [place] [address] 10 May, 2013 [facility] [address] [id number] [address] [place] [address], [place] [address] 10 May, 2013 [facility] [address] [id number] [address] [place] [address], [place] [address] 27 Apr, 2013 [facility] [address] [id number] [address] [place] [address], [place] [address] 19 Apr, 2013 [facility] [address] [id number] [address] [place] [address], [place] [address] 18 Jan, 2013 [facility] [address] [id number] [address] [place] [address], [place] [address] 16 Jan, 2013 [facility] [address] [id number] [address] [place] [address], [place] [address] Dec, [facility] [address] [id number] [address] [place] [address], [place] [address] Dec, [facility] [address] [id number] [address] [place] [address], [place] [address] November, [facility] [address] [id number] [address] [place] [address], [place] [address] November, [facility] [address] [id number] [address] [place] [address], [place] [address] November, [facility] [address] [id number] [address] [place] [address], [place] [address] November, [facility] [address] [id number] [address] [place] [address], [place] [address] 24 Oct, 2012 [facility] [address] [id number] [address] [place] [address], [place] [address] 14 Sep, 2012 [facility] [address] [id number] [address] [place] [address], [place] [address] Sep, [facility] [address] [id number] [address] [place] [address], [place] [address] 15 Sep, 2012 [facility] [address] [id number] [address] [place] [address], [place] [address] 14 Sep, 2012 [facility] [address] [id number] [address] [place] [address], [place] [address] 08 Sep, 2012 [facility] [address] [id number] [address] [place] [address], [place] [address] 04 Sep, 2012 [facility] [address] [id number] [address] [place] [address], [place] [address] 30 Aug, 2012 [facility] [address] [id number] [address] [place] [address], [place] [address] Aug, [facility] [address] [id number] [address] [place] [address], [place] [address] Jul, [facility] [address] [id number] [address] [place] [address], [place] [address] Jul, [facility] [address] [id number] [address] [place] [address], [place] [address] Jun, [facility] [address] [id number] [address] [place] [address], [place] [address] 15 Jun, 2012 [facility] [address] [id number] [address] [place] [address], [place] [address] 15 Jun, 2012 [facility] [address] [id number] [address] [place] [address], [place] [address] May, [facility] [address] [id number] [address] [place] [address] May, [facility] [address] [id number] [address] [place] [address] May, [facility] [address] [id number] [address] [place] [address] May, [facility] [address] [id number] [address] [place] [address] Apr, [facility] [address] [id number] [address] [place] [address] Apr, [facility] [address] [id number] [address] [place] [address] Sep, [facility] [address] [id number] [address] [place] [address] Mar, [facility] [address] [id number] [address] [place] [address] Jan, [facility] [address] [id number] [address] [place] [address] Oct, [facility] [address] [id number] [address] [place] [address] May, IMMUNIZATIONS No Known Immunizations SOCIAL HISTORY Never Assessed REASON FOR VISIT PLAN OF CARE VITAL SIGNS Height 62 in 2014-07-05 Weight 151 lbs 2014-07-05 Temperature 97.8 degrees Fahrenheit 2014-07-05 Heart Rate 78 bpm 2014-07-05 Respiratory Rate 18 2014-07-05 Blood pressure systolic 121 mmHg 2014-07-05 Blood pressure diastolic 74 mmHg 2014-07-05 MEDICATIONS Unknown Medications RESULTS No Results PROCEDURES Procedure Date Ordered Result Body Site URINALYSIS, AUTO, W/O SCOPE Jul 05, 2014 INSTRUCTIONS MEDICATIONS ADMINISTERED No Known Medications MEDICAL (GENERAL) HISTORY Type Description Date Medical History asthma Medical History kidney stones Medical History HSV 1 [employer] Surgical History thumb broken age 11 Surgical History kidney stone removed 03/18/2016 Hospitalization History kidney stones/ dehydration/ UTI Dece mber 2013 Hospitalization History ER visit for knee injury March 2018
--- OUTSIDE RECORDS SUMMARY | 2020-01-11 23:03 | XMS REPORT ---
Author Author Cedric Reyes Organization [facility] Address [address] [place] [address] Care Team Providers Care Electrician Ship Name Role Phone NORM Reyes Unavailable PROBLEMS Type Condition ICD9-CM Code [id number] Code Onset Dates Condition S tatus SNOMED Code Problem Other chronic pain G89.29 Active 8 9107141 Problem Seasonal allergies J30.2 Active 4 30905721 Problem Asthma, exercise induced J45.990 Activ e 30972632 Problem Recurrent kidney stones N20.0 Active [id number] ALLERGIES No Information ENCOUNTERS Encounter Location Date Diagnosis [facility] [address] [address] May, [facility] [address] [address] Apr, Sprain of left knee, unspeci fied ligament, initial encounter S83.92XA [facility] [address] [place] [id number] [address] [place] [address] Mar, [facility] [address] [address] Mar, [facility] [address] [address] Mar, Injury of left knee, initial encounter S89.92XA and Acute pain of left knee M25.562 [facility] [address] [id number] [address] [place] [address] Dec, Seasonal allergies J30.2 ; C ough R05 and Gagging episode R19.8 [facility] [address] [address] November, Sore throat J02.9 ; Otalgia, bilateral H92.03 and Allergic rhinitis, unspecified seasonality, unspecified trigger J30.9 [place] [id number] [place] [address] Oct, [place] [address] [place] [id number] [address] [place] [address] Jun, Encounter for Depo-Provera c ontraception Z30.42 [place] [address] [place] [id number] [place] [address] Mar, Encounter for Depo-Provera c ontraception Z30.42 [place] [address] [place] [id number] [place] [address] Jan, test negative Z32. 02 [place] [address] [address] Dec, Surveillance for contr ol, oral contraceptives Z30.41 and Encounter for Depo-Provera contraception Z30.42 [place] [address] [place] [id number] [place] [address] November, Well woman exam without gyne cological exam Z00.00 [place] [address] [place] [id number] [address] [place] [address] Sep, Pharyngitis due to other org anism J02.8 [place] [id number] [place] [address] Aug, [place] [address] [place] [address] Aug, [place] [address] [place] [id number] [place] [address] Aug, Vaginal candidiasis B37.3 [place] [address] [place] [address] Aug, Vaginal candidiasis B37.3 [place] [address] [place] [id number] [place] [address] 14 Apr, 2016 Visit for TB skin test Z11.1 [place] [address] [address] 31 Mar, 2016 Visit for TB skin test Z11.1 and Screening for tuberculosis Z11.1 [place] [address] [address] Mar, Routine health maintenance Z 00.00 and Recurrent kidney stones N20.0 [place] [address] [place] [id number] [place] [address] Mar, Ingrown right greater toenai l L60.0 and Acute non-recurrent frontal sinusitis J01.10 [place] [address] [address] Mar, Ingrowing right great toenai l L60.0 and Recurrent kidney stones N20.0 [place] [address] [place] [id number] [place] [address] Dec, Well woman exam without gyne cological exam Z00.00 and Encounter for surveillance of contraceptive pills Z30.41 [place] [address] [place] [id number] [place] [address] Oct, Surveillance for contr ol, oral contraceptives Z30.41 and Sore throat J02.9 [place] [id number] [address] [place] [address] Sep, Renal calculi N20.0 [place] [address] [place] [id number] [place] [address] Aug, Surveillance of contraceptiv e injection Z30.42 ; Encounter for Depo-Provera contraception Z30.42 and Encounter for counseling regarding contraception Z30.9 [place] [address] [place] [id number] [address] [place] [address] Aug, Asthma, exercise induced J45 .990 [place] [address] [place] [id number] [place] [address] May, [facility] [address] [id number] [place] [id number] Mar, Sports physical V70.3 ; Exer cise counseling V65.41 ; Dietary counseling V65.3 and Asthma 493.90 [facility] [address] [id number] [address] [place] [address] Mar, Encounter for contraceptive management V25.9 [facility] [address] [id number] [address] [place] [address] Jan, Routine child health exam V2 0.2 ; GARDASIL (HPV) DX V04.89 ; MENINGOCOCCAL DX V03.89 ; Dietary counseling and surveillance V65.3 ; Exercise counseling V65.41 and Recurrent nephrolithiasis 592.0 [facility] [address] [facility] [id number] [address] [place] [address] Jan, Kidney stone 592.0 [facility] [address] [facility] [id number] [address] [place] [address] Jan, Herpes simplex without menti on of complication 054.9 [facility] [address] [facility] [id number] [address] [place] [address] Dec, [facility] [address] [facility] [id number] [address] [place] [address] November, Encounter for contraceptive management V25.9 [facility] [address] [id number] [address] [place] [address] Oct, [facility] [address] [id number] [address] [place] [address] Oct, [facility] [address] [facility] [id number] [address] [place] [address] Sep, [facility] [address] [facility] [id number] [address] [place] [address] Sep, [facility] [address] [id number] [address] [place] [address], [place] [address] 10 Sep, 2014 [facility] [address] [id number] [address] [place] [address], [place] [address] 10 Sep, 2014 [facility] [address] [id number] [address] [place] [address], [place] [address] Aug, [facility] [address] [id number] [address] [place] [address], [place] [address] Aug, [facility] [address] [id number] [address] [place] [address], [place] [address] Aug, [facility] [address] [id number] [address] [place] [address], [place] [address] Aug, [facility] [address] [id number] [address] [place] [address], [place] [address] Jul, [facility] [address] [id number] [address] [place] [address], [place] [address] Jul, [facility] [address] [id number] [address] [place] [address], [place] [address] Jul, [facility] [address] [id number] [address] [place] [address], [place] [address] Jul, [facility] [address] [id number] [address] [place] [address], [place] [address] Jul, [facility] [address] [id number] [address] [place] [address], [place] [address] Jul, [facility] [address] [id number] [address] [place] [address], [place] [address] Jul, [facility] [address] [id number] [address] [place] [address], [place] [address] Jul, [facility] [address] [id number] [address] [place] [address], [place] [address] Jul, [facility] [address] [id number] [address] [place] [address], [place] [address] Jun, [facility] [address] [id number] [address] [place] [address], [place] [address] Jun, [facility] [address] [id number] [address] [place] [address], [place] [address] Jun, [facility] [address] [id number] [address] [place] [address], [place] [address] Jun, [facility] [address] [id number] [address] [place] [address], [place] [address] Jun, [facility] [address] [id number] [address] [place] [address], [place] [address] Jun, [facility] [address] [id number] [address] [place] [address], [place] [address] Jun, [facility] [address] [id number] [address] [place] [address], [place] [address] Jun, [facility] [address] [id number] [address] [place] [address], [place] [address] Jun, [facility] [address] [id number] [address] [place] [address], [place] [address] Jun, [facility] [address] [id number] [address] [place] [address], [place] [address] Jun, [facility] [address] [id number] [address] [place] [address], [place] [address] Jun, [facility] [address] [id number] [address] [place] [address], [place] [address] Jun, [facility] [address] [id number] [address] [place] [address], [place] [address] Jun, [facility] [address] [id number] [address] [place] [address], [place] [address] May, [facility] [address] [id number] [address] [place] [address], [place] [address] May, [facility] [address] [id number] [address] [place] [address] May, [facility] [address] [id number] [address] [place] [address], [place] [address] May, [facility] [address] [id number] [address] [place] [address], [place] [address] May, [facility] [address] [id number] [address] [place] [address], [place] [address] May, 2013 [facility] [address] [id number] [address] [place] [address], [place] [address] May, [facility] [address] [id number] [address] [place] [address], [place] [address] May, [facility] [address] [id number] [address] [place] [address], [place] [address] May, [facility] [address] [id number] [address] [place] [address], [place] [address] May, [facility] [address] [id number] [address] [place] [address], [place] [address] Mar, [facility] [address] [id number] [address] [place] [address], [place] [address] Mar, [facility] [address] [id number] [address] [place] [address], [place] [address] Jan, [facility] [address] [id number] [address] [place] [address], [place] [address] Jan, 2013 [facility] [address] [id number] [address] [place] [address] Jan, [facility] [address] [id number] [address] [place] [address], [place] [address] Jan, 2013 [facility] [address] [id number] [address] [place] [address], [place] [address] Jan, [facility] [address] [id number] [address] [place] [address], [place] [address] Jan, 2013 [facility] [address] [id number] [address] [place] [address], [place] [id number] November, [facility] [address] [id number] [address] [place] [address], [place] [address] November, [facility] [address] [id number] [address] [place] [address], [place] [address] November, [facility] [address] [id number] [address] [place] [address], [place] [address] November, [facility] [address] [id number] [address] [place] [address], [place] [address] Oct, [facility] [address] [id number] [address] [place] [address], [place] [address] Oct, [facility] [address] [id number] [address] [place] [address], [place] [address] Oct, [facility] [address] [id number] [address] [place] [address], [place] [address] Oct, [facility] [address] [id number] [address] [place] [address], [place] [address] Sep, [facility] [address] [id number] [address] [place] [address], [place] [address] Sep, [facility] [address] [id number] [address] [place] [address], [place] [address] Sep, [facility] [address] [id number] [address] [place] [address], [place] [address] Sep, [facility] [address] [id number] [address] [place] [address], [place] [address] Aug, [facility] [address] [id number] [address] [place] [address], [place] [address] Aug, [facility] [address] [id number] [address] [place] [address], [place] [address] Aug, [facility] [address] [id number] [address] [place] [address], [place] [address] Aug, [facility] [address] [id number] [address] [place] [address], [place] [address] Aug, [facility] [address] [id number] [address] [place] [address], [place] [address] Aug, [facility] [address] [id number] [address] [place] [address], [place] [address] Jul, [facility] [address] [id number] [address] [place] [address], [place] [address] Jul, [facility] [address] [id number] [address] [place] [address], [place] [address] Jul, [facility] [address] [id number] [address] [place] [address], [place] [address] Jul, [facility] [address] [id number] [address] [place] [address], [place] [address] Jun, [facility] [address] [id number] [address] [place] [address], [place] [address] Jun, [facility] [address] [id number] [address] [place] [address], [place] [address] Jun, [facility] [address] [id number] [address] [place] [address], [place] [address] Jun, [facility] [address] [id number] [address] [place] [address], [place] [address] Jun, [facility] [address] [id number] [address] [place] [address], [place] [address] May, [facility] [address] [id number] [address] [place] [address], [place] [address] May, [facility] [address] [id number] [address] [place] [address], [place] [address] May, [facility] [address] [id number] [address] [place] [address], [place] [address] May, [facility] [address] [id number] [address] [place] [address] [place] [address] 18 May, 2013 [facility] [address] [id number] [address] [place] [address], [place] [address] 18 May, 2013 [facility] [address] [id number] [address] [place] [address], [place] [address] 14 May, 2013 [facility] [address] [id number] [address] [place] [address], [place] [address] 12 May, 2013 [facility] [address] [id number] [address] [place] [address], [place] [address] 11 May, 2013 [facility] [address] [id number] [address] [place] [address], [place] [address] 10 May, 2013 [facility] [address] [id number] [address] [place] [address], [place] [address] 10 May, 2013 [facility] [address] [id number] [address] [place] [address], [place] [address] 27 Apr, 2013 [facility] [address] [id number] [address] [place] [address], [place] [address] 19 Apr, 2013 [facility] [address] [id number] [address] [place] [address], [place] [address] 18 Jan, 2013 [facility] [address] [id number] [address] [place] [address], [place] [address] 16 Jan, 2013 [facility] [address] [id number] [address] [place] [address], [place] [address] 14 Dec, 2012 [facility] [address] [id number] [address] [place] [address], [place] [address] Dec, [facility] [address] [id number] [address] [place] [address], [place] [address] November, [facility] [address] [id number] [address] [place] [address], [place] [address] November, [facility] [address] [id number] [address] [place] [address], [place] [address] November, [facility] [address] [id number] [address] [place] [address], [place] [address] November, [facility] [address] [id number] [address] [place] [address], [place] [address] 24 Oct, 2012 [facility] [address] [id number] [address] [place] [address], [place] [address] 14 Sep, 2012 [facility] [address] [id number] [address] [place] [address], [place] [address] Sep, [facility] [address] [id number] [address] [place] [address], [place] [address] 15 Sep, 2012 [facility] [address] [id number] [address] [place] [address], [place] [address] 14 Sep, 2012 [facility] [address] [id number] [address] [place] [address], [place] [address] 08 Sep, 2012 [facility] [address] [id number] [address] [place] [address], [place] [address] 04 Sep, 2012 [facility] [address] [id number] [address] [place] [address], [place] [address] Aug, [facility] [address] [id number] [address] [place] [address], [place] [address] Aug, [facility] [address] [id number] [address] [place] [address], [place] [address] Jul, [facility] [address] [id number] [address] [place] [address], [place] [address] Jul, [facility] [address] [id number] [address] [place] [address], [place] [address] Jun, [facility] [address] [id number] [address] [place] [address], [place] [address] Jun, [facility] [address] [id number] [address] [place] [address], [place] [id number] 15 Jun, 2012 [facility] [address] [id number] [address] [place] [phone] May, [facility] [address] [id number] [address] [place] [phone] May, [facility] [address] [id number] [address] [place] [phone] May, [facility] [address] [id number] [address] [place] [id number] May, [facility] [address] [id number] [address] [place] [id number] Apr, [facility] [address] [id number] [address] [place] [phone] Apr, [facility] [address] [id number] [address] [place] [phone] Sep, [facility] [address] [id number] [address] [place] [id number] Mar, [facility] [address] [id number] [address] [place] [phone] Jan, [facility] [address] [id number] [address] [place] [phone] Oct, [facility] [address] [id number] [address] [place] [phone] May, IMMUNIZATIONS No Known Immunizations SOCIAL HISTORY Never Assessed REASON FOR VISIT PLAN OF CARE VITAL SIGNS MEDICATIONS Unknown Medications RESULTS No Results PROCEDURES Procedure Date Ordered Result Body Site COMPLETE CBC W/AUTO DIFF WBC Jun 27, 2014 URINE CULTURE/COLONY COUNT Jun 27, 2014 ASSAY THYROID STIM HORMONE Jun 27, 2014 URINE TEST Jun 27, 2014 LIPID PANEL Jun 27, 2014 COMPREHEN METABOLIC PANEL Jun 27, 2014 URINALYSIS, AUTO, W/O SCOPE Jun 27, 2014 VENIPUNCT, ROUTINE* Jun 27, 2014 INSTRUCTIONS MEDICATIONS ADMINISTERED No Known Medications MEDICAL (GENERAL) HISTORY Type Description Date Medical History asthma Medical History kidney stones Medical History HSV 1 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
--- OUTSIDE RECORDS SUMMARY | 2020-01-11 23:03 | XMS REPORT ---
Author Author Cedric MCPHERSON Organization [facility] Address [address] [place] [address] Care Team Providers Care Transportation Modeler Name Role Phone RONDA MCPHERSON Unavailable PROBLEMS Type Condition ICD9-CM Code [id number] Code Onset Dates Condition S tatus SNOMED Code Problem Other chronic pain G89.29 Active 8 3918921 Problem Seasonal allergies J30.2 Active 4 77657605 Problem Asthma, exercise induced J45.990 Activ e 53076003 Problem Recurrent kidney stones N20.0 Active [id number] ALLERGIES No Information ENCOUNTERS Encounter Location Date Diagnosis [facility] [address] [address] May, [facility] [address] [address] Apr, Sprain of left knee, unspeci fied ligament, initial encounter S83.92XA [place] [address] [place] [id number] [place] [address] Mar, [facility] [address] [address] Mar, [facility] [address] [address] Mar, Injury of left knee, initial encounter S89.92XA and Acute pain of left knee M25.562 [facility] [address] [address] Dec, Seasonal allergies J30.2 ; C ough R05 and Gagging episode R19.8 [facility] [address] [place] [id number] [place] [address] 16 May, 2018 Sore throat J02.9 ; Otalgia, bilateral H92.03 and Allergic rhinitis, unspecified seasonality, unspecified trigger J30.9 [place] [id number] [facility] [id number] [address] [place] [address] Oct, [place] [address] [facility] [id number] [address] [place] [address] Jun, Encounter for Depo-Provera c ontraception Z30.42 [place] [address] [facility] [id number] [address] [place] [address] Mar, Encounter for Depo-Provera c ontraception Z30.42 [place] [address] [place] [id number] [address] [place] [address] Jan, test negative Z32. 02 [place] [address] [place] [id number] [address] [place] [address] Dec, Surveillance for contr ol, oral contraceptives Z30.41 and Encounter for Depo-Provera contraception Z30.42 [place] [address] [place] [id number] [address] [place] [address] November, Well woman exam without gyne cological exam Z00.00 [place] [address] [place] [id number] [address] [place] [address] Sep, Pharyngitis due to other org anism J02.8 [place] [address] [facility] [id number] [address] [place] [address] Aug, [place] [address] [facility] [id number] [address] [place] [address] Aug, [place] [address] [place] [id number] [place] [address] Aug, Vaginal candidiasis B37.3 [place] [address] [place] [id number] [address] [place] [address] Aug, Vaginal candidiasis B37.3 [place] [address] [place] [id number] [address] [place] [address] 14 Apr, 2016 Visit for TB skin test Z11.1 [place] [address] [address] Mar, Visit for TB skin test Z11.1 and Screening for tuberculosis Z11.1 [place] [address] [address] Mar, Routine health maintenance Z 00.00 and Recurrent kidney stones N20.0 [place] [address] [address] Mar, Ingrown right greater toenai l L60.0 and Acute non-recurrent frontal sinusitis J01.10 [place] [address] [address] Mar, Ingrowing right great toenai l L60.0 and Recurrent kidney stones N20.0 [place] [address] [address] Dec, Well woman exam without gyne cological exam Z00.00 and Encounter for surveillance of contraceptive pills Z30.[address] [address] Oct, Surveillance for contr ol, oral contraceptives Z30.41 and Sore throat J02.9 [place] [address] [place] [id number] [place] [address] Sep, Renal calculi N20.0 [place] [address] [place] [id number] [place] [address] Aug, Surveillance of contraceptiv e injection Z30.42 ; Encounter for Depo-Provera contraception Z30.42 and Encounter for counseling regarding contraception Z30.9 [place] [address] [place] [id number] [place] [address] Aug, Asthma, exercise induced J45 .990 [place] [address] [place] [id number] [place] [address] May, [facility] [place] [address] [id number] [place] [id number] Mar, Sports physical V70.3 ; Exer cise counseling V65.41 ; Dietary counseling V65.3 and Asthma 493.90 [facility] [address] [facility] [id number] [address] [place] [address] Mar, Encounter for contraceptive management V25.9 [facility] [address] [id number] [address] [place] [address] Jan, Routine child health exam V2 0.2 ; GARDASIL (HPV) DX V04.89 ; MENINGOCOCCAL DX V03.89 ; Dietary counseling and surveillance V65.3 ; Exercise counseling V65.41 and Recurrent nephrolithiasis 592.0 [facility] [address] [facility] [id number] [address] [place] [address] Jan, Kidney stone 592.0 [facility] [address] [facility] [id number] [address] [place] [address] Jan, Herpes simplex without menti on of complication 054.9 [facility] [address] [facility] [id number] [address] [place] [address] Dec, [facility] [address] [facility] [id number] [address] [place] [address] November, Encounter for contraceptive management V25.9 [facility] [address] [id number] [address] [place] [address] Oct, [facility] [address] [id number] [address] [place] [address] Oct, [facility] [address] [facility] [id number] [address] [place] [address] Sep, [facility] [address] [facility] [id number] [address] [place] [address] Sep, [facility] [address] [facility] [id number] [address] [place] [address] Sep, [facility] [address] [id number] [address] [place] [address], [place] [address] Sep, [facility] [address] [id number] [address] [place] [address], [place] [address] Aug, [facility] [address] [id number] [address] [place] [address], [place] [address] Aug, [facility] [address] [id number] [address] [place] [address], [place] [address] Aug, [facility] [address] [id number] [address] [place] [address], [place] [address] Aug, [facility] [address] [id number] [address] [place] [address], [place] [address] Jul, [facility] [address] [id number] [address] [place] [address], [place] [address] Jul, [facility] [address] [id number] [address] [place] [address], [place] [address] Jul, [facility] [address] [id number] [address] [place] [address], [place] [address] Jul, [facility] [address] [id number] [address] [place] [address], [place] [address] Jul, [facility] [address] [id number] [address] [place] [address], [place] [address] Jul, [facility] [address] [id number] [address] [place] [address], [place] [address] Jul, [facility] [address] [id number] [address] [place] [address], [place] [address] Jul, [facility] [address] [id number] [address] [place] [address], [place] [address] Jul, [facility] [address] [id number] [address] [place] [address], [place] [address] Jun, [facility] [address] [id number] [address] [place] [address], [place] [address] Jun, [facility] [address] [id number] [address] [place] [address], [place] [address] Jun, [facility] [address] [id number] [address] [place] [address], [place] [address] Jun, [facility] [address] [id number] [address] [place] [address], [place] [address] Jun, [facility] [address] [id number] [address] [place] [address], [place] [address] Jun, [facility] [address] [id number] [address] [place] [address], [place] [address] Jun, [facility] [address] [id number] [address] [place] [address], [place] [address] Jun, [facility] [address] [id number] [address] [place] [address], [place] [address] Jun, [facility] [address] [id number] [address] [place] [address], [place] [address] Jun, [facility] [address] [id number] [address] [place] [address], [place] [address] Jun, [facility] [address] [id number] [address] [place] [address], [place] [address] Jun, [facility] [address] [id number] [address] [place] [address], [place] [address] Jun, [facility] [address] [id number] [address] [place] [address], [place] [address] Jun, [facility] [address] [id number] [address] [place] [address], [place] [address] 15 May, 2014 [facility] [address] [id number] [address] [place] [address], [place] [address] 15 May, 2014 [facility] [address] [id number] [address] [place] [address], [place] [address] May, 2013 [facility] [address] [id number] [address] [place] [address], [place] [address] May, 2013 [facility] [address] [id number] [address] [place] [address], [place] [address] May, [facility] [address] [id number] [address] [place] [address], [place] [address] May, 2013 [facility] [address] [id number] [address] [place] [address], [place] [address] May, 2013 [facility] [address] [id number] [address] [place] [address], [place] [address] May, [facility] [address] [id number] [address] [place] [address], [place] [address] May, [facility] [address] [id number] [address] [place] [address], [place] [address] May, [facility] [address] [id number] [address] [place] [address], [place] [address] Mar, [facility] [address] [id number] [address] [place] [address], [place] [address] Mar, [facility] [address] [id number] [address] [place] [address], [place] [address] Jan, 2013 [facility] [address] [id number] [address] [place] [address], [place] [address] Jan, 2013 [facility] [address] [id number] [address] [place] [address] Jan, [facility] [address] [id number] [address] [place] [address], [place] [address] Jan, [facility] [address] [id number] [address] [place] [address], [place] [address] Jan, [facility] [address] [id number] [address] [place] [address], [place] [address] Jan, [facility] [address] [id number] [address] [place] [address], [place] [address] November, [facility] [address] [id number] [address] [place] [address], [place] [address] November, [facility] [address] [id number] [address] [place] [address], [place] [address] November, [facility] [address] [id number] [address] [place] [address], [place] [address] November, [facility] [address] [id number] [address] [place] [address], [place] [address] Oct, [facility] [address] [id number] [address] [place] [address], [place] [address] Oct, [facility] [address] [id number] [address] [place] [address], [place] [address] Oct, [facility] [address] [id number] [address] [place] [address], [place] [address] Oct, [facility] [address] [id number] [address] [place] [address], [place] [address] Sep, [facility] [address] [id number] [address] [place] [address], [place] [address] Sep, [facility] [address] [id number] [address] [place] [address], [place] [address] Sep, [facility] [address] [id number] [address] [place] [address], [place] [address] Sep, [facility] [address] [id number] [address] [place] [address], [place] [address] Aug, [facility] [address] [id number] [address] [place] [address], [place] [address] Aug, [facility] [address] [id number] [address] [place] [address], [place] [address] Aug, [facility] [address] [id number] [address] [place] [address], [place] [address] Aug, [facility] [address] [id number] [address] [place] [address], [place] [address] Aug, [facility] [address] [id number] [address] [place] [address], [place] [address] Aug, [facility] [address] [id number] [address] [place] [address], [place] [address] Jul, [facility] [address] [id number] [address] [place] [address], [place] [address] Jul, [facility] [address] [id number] [address] [place] [address], [place] [address] Jul, [facility] [address] [id number] [address] [place] [address], [place] [address] Jul, [facility] [address] [id number] [address] [place] [address], [place] [address] Jun, [facility] [address] [id number] [address] [place] [address], [place] [address] Jun, [facility] [address] [id number] [address] [place] [address], [place] [address] Jun, [facility] [address] [id number] [address] [place] [address], [place] [address] Jun, [facility] [address] [id number] [address] [place] [address], [place] [address] Jun, [facility] [address] [id number] [address] [place] [address], [place] [address] May, [facility] [address] [id number] [address] [place] [address], [place] [address] May, [facility] [address] [id number] [address] [place] [address], [place] [address] May, [facility] [address] [id number] [address] [place] [address], [place] [address] May, [facility] [address] [id number] [address] [place] [address], [place] [address] 18 May, 2013 [facility] [address] [id number] [address] [place] [address], [place] [address] 18 May, 2013 [facility] [address] [id number] [address] [place] [address], [place] [address] 14 May, 2013 [facility] [address] [id number] [address] [place] [address], [place] [address] 12 May, 2013 [facility] [address] [id number] [address] [place] [address], [place] [address] 11 May, 2013 [facility] [address] [id number] [address] [place] [address], [place] [address] 10 May, 2013 [facility] [address] [id number] [address] [place] [address], [place] [address] 10 May, 2013 [facility] [address] [id number] [address] [place] [address], [place] [address] 27 Apr, 2013 [facility] [address] [id number] [address] [place] [address], [place] [address] 19 Apr, 2013 [facility] [address] [id number] [address] [place] [address], [place] [address] 18 Jan, 2013 [facility] [address] [id number] [address] [place] [address], [place] [address] 16 Jan, 2013 [facility] [address] [id number] [address] [place] [address], [place] [address] Dec, [facility] [address] [id number] [address] [place] [address], [place] [address] Dec, [facility] [address] [id number] [address] [place] [address], [place] [address] November, [facility] [address] [id number] [address] [place] [address], [place] [address] November, [facility] [address] [id number] [address] [place] [address], [place] [address] November, [facility] [address] [id number] [address] [place] [address], [place] [address] November, [facility] [place] [facility] [address] [id number] [address] [place] [address], [place] [address] 24 Oct, 2012 [facility] [address] [id number] [address] [place] [address], [place] [address] 14 Sep, 2012 [facility] [address] [id number] [address] [place] [address], [place] [address] Sep, [facility] [address] [id number] [address] [place] [address], [place] [address] 15 Sep, 2012 [facility] [address] [id number] [address] [place] [address], [place] [address] 14 Sep, 2012 [facility] [place] [address] [id number] [address] [place] [address], [place] [address] 08 Sep, 2012 [facility] [address] [id number] [address] [place] [address], [place] [address] 04 Sep, 2012 [facility] [place] [address] [id number] [address] [place] [address], [place] [address] 30 Aug, 2012 [facility] [place] [address] [id number] [address] [place] [address], [place] [address] Aug, [facility] [address] [id number] [address] [place] [address], [place] [address] Jul, [facility] [address] [id number] [address] [place] [address], [place] [address] Jul, [facility] [address] [id number] [address] [place] [address], [place] [address] Jun, [facility] [address] [id number] [address] [place] [address], [place] [address] 15 Jun, 2012 [facility] [address] [id number] [address] [place] [address], [place] [address] 15 Jun, 2012 [facility] [address] [id number] [address] [place] [address], [place] [address] May, [facility] [address] [id number] [address] [place] [phone] May, [facility] [address] [id number] [address] [place] [phone] May, [facility] [address] [id number] [address] [place] [id number] May, [facility] [address] [id number] [address] [place] [phone] Apr, [facility] [address] [id number] [address] [place] [phone] Apr, [facility] [address] [id number] [address] [place] [phone] Sep, [facility] [address] [id number] [address] [place] [phone] Mar, [facility] [address] [id number] [address] [place] [phone] Jan, [facility] [address] [id number] [address] [place] [id number] Oct, [facility] [address] [id number] [address] [place] [phone] May, IMMUNIZATIONS No Known Immunizations SOCIAL HISTORY Never Assessed REASON FOR VISIT PLAN OF CARE VITAL SIGNS MEDICATIONS Unknown Medications RESULTS No Results PROCEDURES No Known procedures INSTRUCTIONS MEDICATIONS ADMINISTERED No Known Medications MEDICAL (GENERAL) HISTORY Type Description Date Medical History asthma Medical History kidney stones Medical History HSV 1 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
--- OUTSIDE RECORDS SUMMARY | 2020-01-11 23:03 | XMS REPORT ---
Author Author Cedric Zuluaga Organization [facility] Address [address] [place] [address] Care Team Providers Care Plate Molder Name Role Phone PILAR Zuluaga Unavailable PROBLEMS Type Condition ICD9-CM Code OUP30-KO Code Onset Dates Condition S tatus SNOMED Code Problem Other chronic pain G89.29 Active 8 9410867 Problem Seasonal allergies J30.2 Active 4 62409203 Problem Asthma, exercise induced J45.990 Activ e 06247897 Problem Recurrent kidney stones N20.0 Active [id number] ALLERGIES No Information ENCOUNTERS Encounter Location Date Diagnosis [place] [id number] [address] May, [facility] [address] [address] Apr, Sprain of left knee, unspeci fied ligament, initial encounter S83.92XA [place] [address] [place] [id number] [place] [address] Mar, [facility] [address] [address] Mar, [facility] [address] [address] Mar, Injury of left knee, initial encounter S89.92XA and Acute pain of left knee M25.562 [facility] [address] [place] [id number] [address] [place] [address] Dec, Seasonal allergies J30.2 ; C ough R05 and Gagging episode R19.8 [facility] [address] [place] [id number] [address] [place] [address] November, Sore throat J02.9 ; Otalgia, bilateral H92.03 and Allergic rhinitis, unspecified seasonality, unspecified trigger J30.9 [place] [address] [place] [id number] [place] [address] Oct, [place] [address] [place] [id number] [address] [place] [address] Jun, Encounter for Depo-Provera c ontraception Z30.42 [place] [address] [place] [id number] [place] [address] Mar, Encounter for Depo-Provera c ontraception Z30.42 [place] [address] [place] [id number] [place] [address] Jan, test negative Z32. 02 [place] [address] [address] Dec, Surveillance for contr ol, oral contraceptives Z30.41 and Encounter for Depo-Provera contraception Z30.42 [place] [address] [place] [id number] [place] [address] November, Well woman exam without gyne cological exam Z00.00 [place] [address] [place] [id number] [address] [place] [address] Sep, Pharyngitis due to other org anism J02.8 [place] [address] [place] [address] Aug, [place] [address] [place] [address] Aug, [place] [address] [place] [id number] [place] [address] Aug, Vaginal candidiasis B37.3 [place] [address] [place] [address] Aug, Vaginal candidiasis B37.3 [place] [address] [place] [address] [place] [address] 14 Apr, 2016 Visit for TB skin test Z11.1 [place] [address] [address] 31 Mar, 2016 Visit for TB skin test Z11.1 and Screening for tuberculosis Z11.1 [place] [address] [address] Mar, Routine health maintenance Z 00.00 and Recurrent kidney stones N20.0 [place] [address] [place] [id number] [place] [address] Mar, Ingrown right greater toenai l L60.0 and Acute non-recurrent frontal sinusitis J01.10 [place] [address] [address] Mar, Ingrowing right great toenai l L60.0 and Recurrent kidney stones N20.0 [place] [address] [place] [id number] [place] [address] Dec, Well woman exam without gyne cological exam Z00.00 and Encounter for surveillance of contraceptive pills Z30.41 [place] [address] [place] [id number] [place] [address] Oct, Surveillance for contr ol, oral contraceptives Z30.41 and Sore throat J02.9 [place] [id number] [address] [place] [address] Sep, Renal calculi N20.0 [place] [address] [place] [id number] [place] [address] Aug, Surveillance of contraceptiv e injection Z30.42 ; Encounter for Depo-Provera contraception Z30.42 and Encounter for counseling regarding contraception Z30.9 [place] [address] [place] [id number] [address] [place] [address] Aug, Asthma, exercise induced J45 .990 [place] [address] [place] [id number] [place] [address] May, [facility] [address] [id number] [place] [id number] Mar, Sports physical V70.3 ; Exer cise counseling V65.41 ; Dietary counseling V65.3 and Asthma 493.90 [facility] [address] [id number] [address] [place] [address] Mar, Encounter for contraceptive management V25.9 [facility] [address] [id number] [address] [place] [address] Jan, Routine child health exam V2 0.2 ; GARDASIL (HPV) DX V04.89 ; MENINGOCOCCAL DX V03.89 ; Dietary counseling and surveillance V65.3 ; Exercise counseling V65.41 and Recurrent nephrolithiasis 592.0 [facility] [address] [facility] [id number] [address] [place] [address] Jan, Kidney stone 592.0 [facility] [address] [facility] [id number] [address] [place] [address] Jan, Herpes simplex without menti on of complication 054.9 [facility] [address] [facility] [id number] [address] [place] [address] Dec, [facility] [address] [facility] [id number] [address] [place] [address] November, Encounter for contraceptive management V25.9 [facility] [address] [id number] [address] [place] [address] Oct, [facility] [address] [id number] [address] [place] [address] Oct, [facility] [address] [facility] [id number] [address] [place] [address] Sep, [facility] [address] [facility] [id number] [address] [place] [address] Sep, [facility] [address] [id number] [address] [place] [address], [place] [address] 10 Sep, 2014 [facility] [address] [id number] [address] [place] [address], [place] [address] 10 Sep, 2014 [facility] [address] [id number] [address] [place] [address], [place] [address] Aug, [facility] [address] [id number] [address] [place] [address], [place] [address] Aug, [facility] [address] [id number] [address] [place] [address], [place] [address] Aug, [facility] [address] [id number] [address] [place] [address], [place] [address] Aug, [facility] [address] [id number] [address] [place] [address], [place] [address] Jul, [facility] [address] [id number] [address] [place] [address], [place] [address] Jul, [facility] [address] [id number] [address] [place] [address], [place] [address] Jul, [facility] [address] [id number] [address] [place] [address], [place] [address] Jul, [facility] [address] [id number] [address] [place] [address], [place] [address] Jul, [facility] [address] [id number] [address] [place] [address], [place] [address] Jul, [facility] [address] [id number] [address] [place] [address], [place] [address] Jul, [facility] [address] [id number] [address] [place] [address], [place] [address] Jul, [facility] [address] [id number] [address] [place] [address], [place] [address] Jul, [facility] [address] [id number] [address] [place] [address], [place] [address] Jun, [facility] [address] [id number] [address] [place] [address], [place] [address] Jun, [facility] [address] [id number] [address] [place] [address], [place] [address] Jun, [facility] [address] [id number] [address] [place] [address], [place] [address] Jun, [facility] [address] [id number] [address] [place] [address], [place] [address] Jun, [facility] [address] [id number] [address] [place] [address], [place] [address] Jun, [facility] [address] [id number] [address] [place] [address], [place] [address] Jun, [facility] [address] [id number] [address] [place] [address], [place] [address] Jun, [facility] [address] [id number] [address] [place] [address], [place] [address] Jun, [facility] [address] [id number] [address] [place] [address], [place] [address] Jun, [facility] [address] [id number] [address] [place] [address], [place] [address] Jun, [facility] [address] [id number] [address] [place] [address], [place] [address] Jun, [facility] [address] [id number] [address] [place] [address], [place] [address] Jun, [facility] [address] [id number] [address] [place] [address], [place] [address] Jun, [facility] [address] [id number] [address] [place] [address], [place] [address] May, [facility] [address] [id number] [address] [place] [address], [place] [address] May, [facility] [address] [id number] [address] [place] [address] May, [facility] [address] [id number] [address] [place] [address], [place] [address] May, [facility] [address] [id number] [address] [place] [address], [place] [address] May, [facility] [address] [id number] [address] [place] [address], [place] [address] May, 2013 [facility] [address] [id number] [address] [place] [address], [place] [address] May, [facility] [address] [id number] [address] [place] [address], [place] [address] May, [facility] [address] [id number] [address] [place] [address], [place] [address] May, [facility] [address] [id number] [address] [place] [address], [place] [address] May, [facility] [address] [id number] [address] [place] [address], [place] [address] Mar, [facility] [address] [id number] [address] [place] [address], [place] [address] Mar, [facility] [address] [id number] [address] [place] [address], [place] [address] Jan, [facility] [address] [id number] [address] [place] [address], [place] [address] Jan, 2013 [facility] [address] [id number] [address] [place] [address] Jan, [facility] [address] [id number] [address] [place] [address], [place] [address] Jan, 2013 [facility] [address] [id number] [address] [place] [address], [place] [address] Jan, [facility] [address] [id number] [address] [place] [address], [place] [address] Jan, 2013 [facility] [address] [id number] [address] [place] [address], [place] [address] November, [facility] [address] [id number] [address] [place] [address], [place] [address] November, [facility] [address] [id number] [address] [place] [address], [place] [address] November, [facility] [address] [id number] [address] [place] [address], [place] [address] November, [facility] [address] [id number] [address] [place] [address], [place] [address] Oct, [facility] [address] [id number] [address] [place] [address], [place] [address] Oct, [facility] [address] [id number] [address] [place] [address], [place] [address] Oct, [facility] [address] [id number] [address] [place] [address], [place] [address] Oct, [facility] [address] [id number] [address] [place] [address], [place] [address] Sep, [facility] [address] [id number] [address] [place] [address], [place] [address] Sep, [facility] [address] [id number] [address] [place] [address], [place] [address] Sep, [facility] [address] [id number] [address] [place] [address], [place] [address] Sep, [facility] [address] [id number] [address] [place] [address], [place] [address] Aug, [facility] [address] [id number] [address] [place] [address], [place] [address] Aug, [facility] [address] [id number] [address] [place] [address], [place] [address] Aug, [facility] [address] [id number] [address] [place] [address], [place] [address] Aug, [facility] [address] [id number] [address] [place] [address], [place] [address] Aug, [facility] [address] [id number] [address] [place] [address], [place] [address] Aug, [facility] [address] [id number] [address] [place] [address], [place] [address] Jul, [facility] [address] [id number] [address] [place] [address], [place] [address] Jul, [facility] [address] [id number] [address] [place] [address], [place] [address] Jul, [facility] [address] [id number] [address] [place] [address], [place] [address] Jul, [facility] [address] [id number] [address] [place] [address], [place] [address] Jun, [facility] [address] [id number] [address] [place] [address], [place] [address] Jun, [facility] [address] [id number] [address] [place] [address], [place] [address] Jun, [facility] [address] [id number] [address] [place] [address], [place] [address] Jun, [facility] [address] [id number] [address] [place] [address], [place] [address] Jun, [facility] [address] [id number] [address] [place] [address], [place] [address] May, [facility] [address] [id number] [address] [place] [address], [place] [address] May, [facility] [address] [id number] [address] [place] [address], [place] [address] May, [facility] [address] [id number] [address] [place] [address], [place] [address] May, [facility] [address] [id number] [address] [place] [address] [place] [address] 18 May, 2013 [facility] [address] [id number] [address] [place] [address], [place] [address] 18 May, 2013 [facility] [address] [id number] [address] [place] [address], [place] [address] 14 May, 2013 [facility] [address] [id number] [address] [place] [address], [place] [address] 12 May, 2013 [facility] [address] [id number] [address] [place] [address], [place] [address] 11 May, 2013 [facility] [address] [id number] [address] [place] [address], [place] [address] 10 May, 2013 [facility] [address] [id number] [address] [place] [address], [place] [address] 10 May, 2013 [facility] [address] [id number] [address] [place] [address], [place] [id number] 27 Apr, 2013 [facility] [address] [id number] [address] [place] [address], [place] [address] 19 Apr, 2013 [facility] [address] [id number] [address] [place] [address], [place] [address] 18 Jan, 2013 [facility] [address] [id number] [address] [place] [address], [place] [address] 16 Jan, 2013 [facility] [address] [id number] [address] [place] [address], [place] [address] 14 Dec, 2012 [facility] [address] [id number] [address] [place] [address], [place] [address] Dec, [facility] [address] [id number] [address] [place] [address], [place] [address] November, [facility] [address] [id number] [address] [place] [address], [place] [address] November, [facility] [address] [id number] [address] [place] [address], [place] [address] November, [facility] [address] [id number] [address] [place] [address], [place] [address] November, [facility] [address] [id number] [address] [place] [address], [place] [address] 24 Oct, 2012 [facility] [address] [id number] [address] [place] [address], [place] [address] 14 Sep, 2012 [facility] [address] [id number] [address] [place] [address], [place] [address] Sep, [facility] [address] [id number] [address] [place] [address], [place] [address] 15 Sep, 2012 [facility] [address] [id number] [address] [place] [address], [place] [address] 14 Sep, 2012 [facility] [address] [id number] [address] [place] [address], [place] [address] 08 Sep, 2012 [facility] [address] [id number] [address] [place] [address], [place] [address] 04 Sep, 2012 [facility] [address] [id number] [address] [place] [address], [place] [address] Aug, [facility] [address] [id number] [address] [place] [address], [place] [address] Aug, [facility] [address] [id number] [address] [place] [address], [place] [address] Jul, [facility] [address] [id number] [address] [place] [address], [place] [address] Jul, [facility] [address] [id number] [address] [place] [address], [place] [address] Jun, [facility] [address] [id number] [address] [place] [address], [place] [id number] Jun, [facility] [address] [id number] [address] [place] [address], [place] [id number] 15 Jun, 2012 [facility] [address] [id number] [address] [place] [id number] May, [facility] [address] [id number] [address] [place] [id number] May, [facility] [address] [id number] [address] [place] [id number] May, [facility] [address] [id number] [address] [place] [id number] May, [facility] [address] [id number] [address] [place] [id number] Apr, [facility] [address] [id number] [address] [place] [id number] Apr, [facility] [address] [id number] [address] [place] [id number] Sep, [facility] [address] [id number] [address] [place] [id number] Mar, [facility] [address] [id number] [address] [place] [id number] Jan, [facility] [address] [id number] [address] [place] [id number] Oct, [facility] [address] [id number] [address] [place] [id number] May, IMMUNIZATIONS No Known Immunizations SOCIAL HISTORY Never Assessed REASON FOR VISIT PLAN OF CARE VITAL SIGNS MEDICATIONS Unknown Medications RESULTS No Results PROCEDURES No Known procedures INSTRUCTIONS MEDICATIONS ADMINISTERED No Known Medications MEDICAL (GENERAL) HISTORY Type Description Date Medical History asthma Medical History kidney stones Medical History HSV 1 [employer] Of [employer] Surgical History thumb broken age 11 Surgical History kidney stone removed 03/18/2016 Hospitalization History kidney stones/ dehydration/ UTI Dece mber 2014 Hospitalization History ER visit for knee injury March 2018
--- OUTSIDE RECORDS SUMMARY | 2020-01-11 23:03 | XMS REPORT ---
Author Author Cedric COFFEY Organization [facility] Address [address] [place] [address] Care Team Providers Care Career Agent Name Role Phone ERLINDASASHAAN Unavailable PROBLEMS Type Condition ICD9-CM Code PFZ46-QO Code Onset Dates Condition S tatus SNOMED Code Problem Other chronic pain G89.29 Active 8 5551639 Problem Seasonal allergies J30.2 Active 4 19946726 Problem Asthma, exercise induced J45.990 Activ e 74548679 Problem Recurrent kidney stones N20.0 Active [id number] ALLERGIES No Information ENCOUNTERS Encounter Location Date Diagnosis [facility] [address] [address] May, [facility] [address] [address] Apr, Sprain of left knee, unspeci fied ligament, initial encounter S83.92XA [place] [address] [address] Mar, [facility] [address] [address] Mar, [facility] [address] [address] Mar, Injury of left knee, initial encounter S89.92XA and Acute pain of left knee M25.562 [facility] [address] [address] Dec, Seasonal allergies J30.2 ; C ough R05 and Gagging episode R19.8 [facility] [address] [address] November, Sore throat J02.9 ; Otalgia, bilateral H92.03 and Allergic rhinitis, unspecified seasonality, unspecified trigger J30.9 [place] [id number] [address] [place] [address] Oct, [place] [address] [address] [facility] [id number] [address] [place] [address] Jun, Encounter for Depo-Provera c ontraception Z30.42 [place] [address] [place] [id number] [address] [place] [address] Mar, Encounter for Depo-Provera c ontraception Z30.42 [place] [address] [address] Jan, test negative Z32. 02 [place] [address] [address] Dec, Surveillance for contr ol, oral contraceptives Z30.41 and Encounter for Depo-Provera contraception Z30.42 [place] [address] [place] [id number] [address] [place] [address] November, Well woman exam without gyne cological exam Z00.00 [place] [address] [place] [id number] [address] [place] [address] Sep, Pharyngitis due to other org anism J02.8 [place] [address] [place] [id number] [address] [place] [address] Aug, [place] [address] [place] [id number] [address] [place] [address] Aug, [place] [address] [place] [id number] [address] [place] [address] Aug, Vaginal candidiasis B37.3 [place] [address] [place] [id number] [address] [place] [address] Aug, Vaginal candidiasis B37.3 [place] [address] [place] [id number] [address] [place] [address] 14 Apr, 2016 Visit for TB skin test Z11.1 [place] [address] [address] 31 Mar, 2016 Visit for TB skin test Z11.1 and Screening for tuberculosis Z11.1 [place] [address] [place] [id number] [address] [place] [address] Mar, Routine health maintenance Z 00.00 and Recurrent kidney stones N20.0 [place] [address] [place] [id number] [address] [place] [address] Mar, Ingrown right greater toenai l L60.0 and Acute non-recurrent frontal sinusitis J01.10 [place] [address] [address] Mar, Ingrowing right great toenai l L60.0 and Recurrent kidney stones N20.0 [place] [address] [address] Dec, Well woman exam without gyne cological exam Z00.00 and Encounter for surveillance of contraceptive pills Z30.[address] [address] 15 Nov, 2015 Surveillance for contr ol, oral contraceptives Z30.41 and Sore throat J02.9 [place] [address] [place] [id number] [address] [place] [address] Sep, Renal calculi N20.0 [place] [address] [place] [id number] [address] [place] [address] Aug, Surveillance of contraceptiv e injection Z30.42 ; Encounter for Depo-Provera contraception Z30.42 and Encounter for counseling regarding contraception Z30.9 [place] [id number] [place] [address] Aug, Asthma, exercise induced J45 .990 [place] [address] [place] [id number] [address] [place] [address] May, [facility] [address] [id number] [place] [id number] Mar, Sports physical V70.3 ; Exer cise counseling V65.41 ; Dietary counseling V65.3 and Asthma 493.90 [facility] [address] [id number] [address] [place] [address] Mar, Encounter for contraceptive management V25.9 [facility] [address] [id number] [address] [place] [address] Jan, Routine child health exam V2 0.2 ; GARDASIL (HPV) DX V04.89 ; MENINGOCOCCAL DX V03.89 ; Dietary counseling and surveillance V65.3 ; Exercise counseling V65.41 and Recurrent nephrolithiasis 592.0 [facility] [address] [facility] [id number] [address] [place] [address] Jan, Kidney stone 592.0 [facility] [address] [facility] [id number] [address] [place] [address] Jan, Herpes simplex without menti on of complication 054.9 [facility] [address] [id number] [address] [place] [address] Dec, [facility] [address] [facility] [id number] [address] [place] [address] November, Encounter for contraceptive management V25.9 [facility] [address] [id number] [address] [place] [address] Oct, [facility] [address] [id number] [address] [place] [address] Oct, [facility] [address] [facility] [id number] [address] [place] [address] Sep, [facility] [address] [id number] [address] [place] [address] Sep, [facility] [address] [facility] [id number] [address] [place] [address] Sep, [facility] [address] [id number] [address] [place] [address], [place] [address] Sep, [facility] [address] [id number] [address] [place] [address], [place] [address] Aug, [facility] [address] [id number] [address] [place] [address], [place] [address] Aug, [facility] [address] [id number] [address] [place] [address], [place] [address] Aug, [facility] [address] [id number] [address] [place] [address], [place] [address] Aug, [facility] [address] [id number] [address] [place] [address], [place] [address] Jul, [facility] [address] [id number] [address] [place] [address], [place] [address] Jul, [facility] [address] [id number] [address] [place] [address], [place] [address] Jul, [facility] [address] [id number] [address] [place] [address], [place] [address] Jul, [facility] [address] [id number] [address] [place] [address], [place] [address] Jul, [facility] [address] [id number] [address] [place] [address], [place] [address] Jul, [facility] [address] [id number] [address] [place] [address], [place] [address] Jul, [facility] [address] [id number] [address] [place] [address], [place] [address] Jul, [facility] [address] [id number] [address] [place] [address], [place] [address] Jul, [facility] [address] [id number] [address] [place] [address], [place] [address] Jun, [facility] [address] [id number] [address] [place] [address], [place] [address] Jun, [facility] [address] [id number] [address] [place] [address], [place] [address] Jun, [facility] [address] [id number] [address] [place] [address], [place] [address] Jun, [facility] [address] [id number] [address] [place] [address], [place] [address] Jun, [facility] [address] [id number] [address] [place] [address], [place] [address] Jun, [facility] [address] [id number] [address] [place] [address], [place] [address] Jun, [facility] [address] [id number] [address] [place] [address], [place] [address] Jun, [facility] [address] [id number] [address] [place] [address], [place] [address] Jun, [facility] [address] [id number] [address] [place] [address], [place] [address] Jun, [facility] [address] [id number] [address] [place] [address], [place] [address] Jun, [facility] [address] [id number] [address] [place] [address], [place] [address] Jun, [facility] [address] [id number] [address] [place] [address], [place] [address] Jun, [facility] [address] [id number] [address] [place] [address], [place] [address] Jun, [facility] [address] [id number] [address] [place] [address], [place] [address] 15 May, 2014 [facility] [address] [id number] [address] [place] [address], [place] [address] 15 May, 2014 [facility] [address] [id number] [address] [place] [address], [place] [address] 14 May, 2014 [facility] [address] [id number] [address] [place] [address], [place] [address] May, 2013 [facility] [address] [id number] [address] [place] [address], [place] [address] May, [facility] [address] [id number] [address] [place] [address], [place] [address] May, 2013 [facility] [address] [id number] [address] [place] [address], [place] [address] May, 2013 [facility] [address] [id number] [address] [place] [address], [place] [address] May, [facility] [address] [id number] [address] [place] [address], [place] [address] May, [facility] [address] [id number] [address] [place] [address], [place] [address] May, [facility] [address] [id number] [address] [place] [address], [place] [address] Mar, [facility] [address] [id number] [address] [place] [address], [place] [address] Mar, [facility] [address] [id number] [address] [place] [address], [place] [address] Jan, 2013 [facility] [address] [id number] [address] [place] [address], [place] [address] Jan, 2013 [facility] [address] [id number] [address] [place] [address], [place] [address] Jan, [facility] [address] [id number] [address] [place] [address], [place] [address] Jan, [facility] [address] [id number] [address] [place] [address], [place] [address] Jan, [facility] [address] [id number] [address] [place] [address], [place] [address] Jan, [facility] [address] [id number] [address] [place] [address] [place] [address] November, [facility] [address] [id number] [address] [place] [address], [place] [address] November, [facility] [address] [id number] [address] [place] [address], [place] [address] November, [facility] [address] [id number] [address] [place] [address], [place] [address] November, [facility] [address] [id number] [address] [place] [address], [place] [address] Oct, [facility] [address] [id number] [address] [place] [address], [place] [address] Oct, [facility] [address] [id number] [address] [place] [address], [place] [address] Oct, [facility] [address] [id number] [address] [place] [address], [place] [address] Oct, [facility] [address] [id number] [address] [place] [address], [place] [address] Sep, [facility] [address] [id number] [address] [place] [address], [place] [address] Sep, [facility] [address] [id number] [address] [place] [address], [place] [address] Sep, [facility] [address] [id number] [address] [place] [address], [place] [address] Sep, [facility] [address] [id number] [address] [place] [address], [place] [address] Aug, [facility] [address] [id number] [address] [place] [address], [place] [address] Aug, [facility] [address] [id number] [address] [place] [address], [place] [address] Aug, [facility] [address] [id number] [address] [place] [address], [place] [address] Aug, [facility] [address] [id number] [address] [place] [address], [place] [address] Aug, [facility] [address] [id number] [address] [place] [address], [place] [address] Aug, [facility] [address] [id number] [address] [place] [address], [place] [address] Jul, [facility] [address] [id number] [address] [place] [address], [place] [address] Jul, [facility] [address] [id number] [address] [place] [address], [place] [address] Jul, [facility] [address] [id number] [address] [place] [address], [place] [address] Jul, [facility] [address] [id number] [address] [place] [address], [place] [address] Jun, [facility] [address] [id number] [address] [place] [address], [place] [address] Jun, [facility] [address] [id number] [address] [place] [address], [place] [address] Jun, [facility] [address] [id number] [address] [place] [address], [place] [address] Jun, [facility] [address] [id number] [address] [place] [address], [place] [address] Jun, [facility] [address] [id number] [address] [place] [address], [place] [address] May, [facility] [address] [id number] [address] [place] [address], [place] [address] May, [facility] [address] [id number] [address] [place] [address], [place] [address] May, [facility] [address] [id number] [address] [place] [address], [place] [address] May, [facility] [address] [id number] [address] [place] [address], [place] [address] 18 May, 2013 [facility] [address] [id number] [address] [place] [address], [place] [address] 18 May, 2013 [facility] [address] [id number] [address] [place] [address], [place] [address] 14 May, 2013 [facility] [address] [id number] [address] [place] [address], [place] [address] 12 May, 2013 [facility] [address] [id number] [address] [place] [address], [place] [address] 11 May, 2013 [facility] [address] [id number] [address] [place] [address], [place] [address] 10 May, 2013 [facility] [address] [id number] [address] [place] [address], [place] [address] 10 May, 2013 [facility] [address] [id number] [address] [place] [address], [place] [address] 27 Apr, 2013 [facility] [address] [id number] [address] [place] [address], [place] [address] 19 Apr, 2013 [facility] [address] [id number] [address] [place] [address], [place] [address] 18 Jan, 2013 [facility] [address] [id number] [address] [place] [address], [place] [address] 16 Jan, 2013 [facility] [address] [id number] [address] [place] [address], [place] [address] 14 Dec, 2012 [facility] [address] [id number] [address] [place] [address] Dec, [facility] [address] [id number] [address] [place] [address], [place] [address] November, [facility] [address] [id number] [address] [place] [address], [place] [address] November, [facility] [address] [id number] [address] [place] [address], [place] [address] November, [facility] [address] [id number] [address] [place] [address], [place] [address] November, [facility] [address] [id number] [address] [place] [address], [place] [address] 24 Oct, 2012 [facility] [address] [id number] [address] [place] [address], [place] [address] 14 Sep, 2012 [facility] [address] [id number] [address] [place] [address], [place] [address] Sep, [facility] [address] [id number] [address] [place] [address], [place] [address] 15 Sep, 2012 [facility] [address] [id number] [address] [place] [address], [place] [address] 14 Sep, 2012 [facility] [address] [id number] [address] [place] [address], [place] [address] 08 Sep, 2012 [facility] [address] [id number] [address] [place] [address], [place] [address] 04 Sep, 2012 [facility] [address] [id number] [address] [place] [address], [place] [address] Aug, [facility] [address] [id number] [address] [place] [address], [place] [address] Aug, [facility] [address] [id number] [address] [place] [address], [place] [address] Jul, [facility] [address] [id number] [address] [place] [address], [place] [address] Jul, [facility] [address] [id number] [address] [place] [address], [place] [address] Jun, [facility] [address] [id number] [address] [place] [address], [place] [address] 15 Jun, 2012 [facility] [address] [id number] [address] [place] [address], [place] [address] 15 Jun, 2012 [facility] [address] [id number] [address] [place] [address], [place] [address] May, [facility] [address] [id number] [address] [place] [phone] May, [facility] [address] [id number] [address] [place] [phone] May, [facility] [address] [id number] [address] [place] [id number] May, [facility] [address] [id number] [address] [place] [phone] Apr, [facility] [address] [id number] [address] [place] [id number] Apr, [facility] [address] [id number] [address] [place] [id number] Sep, [facility] [address] [id number] [address] [place] [id number] Mar, [facility] [address] [id number] [address] [place] [phone] Jan, [facility] [address] [id number] [address] [place] [id number] Oct, [facility] [address] [id number] [address] [place] [id number] May, IMMUNIZATIONS No Known Immunizations SOCIAL HISTORY Never Assessed REASON FOR VISIT PLAN OF CARE VITAL SIGNS Height 62.4 in 2014-07-10 Weight 152.5 lbs 2014-07-10 Temperature 98.3 degrees Fahrenheit 2014-07-10 Heart Rate 82 bpm 2014-07-10 Respiratory Rate 16 2014-07-10 Blood pressure systolic 120 mmHg 2014-07-10 Blood pressure diastolic 83 mmHg 2014-07-10 MEDICATIONS Unknown Medications RESULTS No Results PROCEDURES Procedure Date Ordered Result Body Site URINE CULTURE/COLONY COUNT Jul 10, 2014 URINALYSIS, AUTO, W/O SCOPE Jul 10, 2014 INSTRUCTIONS MEDICATIONS ADMINISTERED No Known Medications MEDICAL (GENERAL) HISTORY Type Description Date Medical History asthma Medical History kidney stones Medical History HSV 1 [employer]ip Saw [employer] Surgical History thumb broken age 11 Surgical History kidney stone removed 03/18/2016 Hospitalization History kidney stones/ dehydration/ UTI Dece mber 2013 Hospitalization History ER visit for knee injury March 2018
--- OUTSIDE RECORDS SUMMARY | 2020-01-11 23:04 | XMS REPORT ---
Author Author Cedric Zuluaga Organization [facility] Address [address] [place] [address] Care Team Providers Care Impress Associate Name Role Phone PILAR Zuluaga Unavailable PROBLEMS Type Condition ICD9-CM Code DWO39-OH Code Onset Dates Condition S tatus SNOMED Code Problem Other chronic pain G89.29 Active 8 4855166 Problem Seasonal allergies J30.2 Active 4 97192576 Problem Asthma, exercise induced J45.990 Activ e 65670345 Problem Recurrent kidney stones N20.0 Active [id number] ALLERGIES No Information ENCOUNTERS Encounter Location Date Diagnosis [place] [address] [address] May, [facility] [address] [address] Apr, Sprain of left knee, unspeci fied ligament, initial encounter S83.92XA [place] [address] [place] [id number] [place] [address] Mar, [facility] [address] [address] Mar, [facility] [address] [address] Mar, Injury of left knee, initial encounter S89.92XA and Acute pain of left knee M25.562 [facility] [address] [place] [id number] [address] [place] [address] Dec, Seasonal allergies J30.2 ; C ough R05 and Gagging episode R19.8 [facility] [address] [place] [id number] [place] [address] November, Sore throat J02.9 ; Otalgia, bilateral H92.03 and Allergic rhinitis, unspecified seasonality, unspecified trigger J30.9 [place] [address] [place] [id number] [place] [address] Oct, [place] [address] [place] [id number] [address] [place] [address] Jun, Encounter for Depo-Provera c ontraception Z30.42 [place] [address] [place] [id number] [place] [address] Mar, Encounter for Depo-Provera c ontraception Z30.42 [place] [address] [place] [id number] [place] [address] Jan, test negative Z32. 02 [place] [address] [address] Dec, Surveillance for contr ol, oral contraceptives Z30.41 and Encounter for Depo-Provera contraception Z30.42 [place] [address] [place] [id number] [place] [address] November, Well woman exam without gyne cological exam Z00.00 [place] [address] [place] [id number] [address] [place] [address] Sep, Pharyngitis due to other org anism J02.8 [place] [address] [place] [address] Aug, [place] [address] [place] [address] Aug, [place] [address] [place] [id number] [place] [address] Aug, Vaginal candidiasis B37.3 [place] [address] [place] [address] Aug, Vaginal candidiasis B37.3 [place] [address] [place] [address] [place] [address] 14 Apr, 2016 Visit for TB skin test Z11.1 [place] [address] [address] 31 Mar, 2016 Visit for TB skin test Z11.1 and Screening for tuberculosis Z11.1 [place] [address] [address] Mar, Routine health maintenance Z 00.00 and Recurrent kidney stones N20.0 [place] [address] [place] [id number] [place] [address] Mar, Ingrown right greater toenai l L60.0 and Acute non-recurrent frontal sinusitis J01.10 [place] [address] [address] Mar, Ingrowing right great toenai l L60.0 and Recurrent kidney stones N20.0 [place] [address] [place] [id number] [place] [address] Dec, Well woman exam without gyne cological exam Z00.00 and Encounter for surveillance of contraceptive pills Z30.41 [place] [address] [place] [id number] [place] [address] Oct, Surveillance for contr ol, oral contraceptives Z30.41 and Sore throat J02.9 [place] [id number] [place] [address] Sep, Renal calculi N20.0 [place] [address] [place] [id number] [place] [address] Aug, Surveillance of contraceptiv e injection Z30.42 ; Encounter for Depo-Provera contraception Z30.42 and Encounter for counseling regarding contraception Z30.9 [place] [address] [place] [id number] [address] [place] [address] Aug, Asthma, exercise induced J45 .990 [place] [address] [place] [id number] [place] [address] May, [facility] [address] [id number] [place] [id number] Mar, Sports physical V70.3 ; Exer cise counseling V65.41 ; Dietary counseling V65.[address] [facility] [address] [id number] [address] [place] [address] Mar, Encounter for contraceptive management V25.9 [facility] [address] [id number] [address] [place] [address] Jan, Routine child health exam V2 0.2 ; GARDASIL (HPV) DX V04.89 ; MENINGOCOCCAL DX V03.89 ; Dietary counseling and surveillance V65.3 ; Exercise counseling V65.41 and Recurrent nephrolithiasis 592.0 [facility] [address] [facility] [id number] [address] [place] [address] Jan, Kidney stone 592.0 [facility] [address] [facility] [id number] [address] [place] [address] Jan, Herpes simplex without menti on of complication 054.9 [facility] [address] [facility] [id number] [address] [place] [address] Dec, [facility] [address] [facility] [id number] [address] [place] [address] November, Encounter for contraceptive management V25.9 [facility] [address] [id number] [address] [place] [address] Oct, [facility] [address] [id number] [address] [place] [address] Oct, [facility] [address] [facility] [id number] [address] [place] [address] Sep, [facility] [address] [facility] [id number] [address] [place] [address] Sep, [facility] [address] [id number] [address] [place] [address], [place] [address] 10 Sep, 2014 [facility] [address] [id number] [address] [place] [address], [place] [address] 10 Sep, 2014 [facility] [address] [id number] [address] [place] [address], [place] [address] Aug, [facility] [address] [id number] [address] [place] [address], [place] [address] Aug, [facility] [address] [id number] [address] [place] [address], [place] [address] Aug, [facility] [address] [id number] [address] [place] [address], [place] [address] Aug, [facility] [address] [id number] [address] [place] [address], [place] [address] Jul, [facility] [address] [id number] [address] [place] [address], [place] [address] Jul, [facility] [address] [id number] [address] [place] [address], [place] [address] Jul, [facility] [address] [id number] [address] [place] [address], [place] [address] Jul, [facility] [address] [id number] [address] [place] [address], [place] [address] Jul, [facility] [address] [id number] [address] [place] [address], [place] [address] Jul, [facility] [address] [id number] [address] [place] [address], [place] [address] Jul, [facility] [address] [id number] [address] [place] [address], [place] [address] Jul, [facility] [address] [id number] [address] [place] [address], [place] [address] Jul, [facility] [address] [id number] [address] [place] [address], [place] [address] Jun, [facility] [address] [id number] [address] [place] [address], [place] [address] Jun, [facility] [address] [id number] [address] [place] [address], [place] [address] Jun, [facility] [address] [id number] [address] [place] [address], [place] [address] Jun, [facility] [address] [id number] [address] [place] [address], [place] [address] Jun, [facility] [address] [id number] [address] [place] [address], [place] [address] Jun, [facility] [address] [id number] [address] [place] [address], [place] [address] Jun, [facility] [address] [id number] [address] [place] [address], [place] [address] Jun, [facility] [address] [id number] [address] [place] [address], [place] [address] Jun, [facility] [address] [id number] [address] [place] [address], [place] [address] Jun, [facility] [address] [id number] [address] [place] [address], [place] [address] Jun, [facility] [address] [id number] [address] [place] [address], [place] [address] Jun, [facility] [address] [id number] [address] [place] [address], [place] [address] Jun, [facility] [address] [id number] [address] [place] [address], [place] [address] Jun, [facility] [address] [id number] [address] [place] [address], [place] [address] May, [facility] [address] [id number] [address] [place] [address], [place] [address] May, [facility] [address] [id number] [address] [place] [address] May, [facility] [address] [id number] [address] [place] [address], [place] [address] May, [facility] [address] [id number] [address] [place] [address], [place] [address] May, [facility] [address] [id number] [address] [place] [address], [place] [address] May, 2013 [facility] [address] [id number] [address] [place] [address], [place] [address] May, [facility] [address] [id number] [address] [place] [address], [place] [address] May, [facility] [address] [id number] [address] [place] [address], [place] [address] May, [facility] [address] [id number] [address] [place] [address], [place] [address] May, [facility] [address] [id number] [address] [place] [address], [place] [address] Mar, [facility] [address] [id number] [address] [place] [address], [place] [address] Mar, [facility] [address] [id number] [address] [place] [address], [place] [address] Jan, [facility] [address] [id number] [address] [place] [address], [place] [address] Jan, 2013 [facility] [address] [id number] [address] [place] [address] Jan, [facility] [address] [id number] [address] [place] [address], [place] [address] Jan, 2013 [facility] [address] [id number] [address] [place] [address], [place] [address] Jan, [facility] [address] [id number] [address] [place] [address], [place] [address] Jan, 2013 [facility] [address] [id number] [address] [place] [address], [place] [address] November, [facility] [address] [id number] [address] [place] [address], [place] [address] November, [facility] [address] [id number] [address] [place] [address], [place] [address] November, [facility] [address] [id number] [address] [place] [address], [place] [address] November, [facility] [address] [id number] [address] [place] [address], [place] [address] Oct, [facility] [address] [id number] [address] [place] [address], [place] [address] Oct, [facility] [address] [id number] [address] [place] [address], [place] [address] Oct, [facility] [address] [id number] [address] [place] [address], [place] [address] Oct, [facility] [address] [id number] [address] [place] [address], [place] [address] Sep, [facility] [address] [id number] [address] [place] [address], [place] [address] Sep, [facility] [address] [id number] [address] [place] [address], [place] [address] Sep, [facility] [address] [id number] [address] [place] [address], [place] [address] Sep, [facility] [address] [id number] [address] [place] [address], [place] [address] Aug, [facility] [address] [id number] [address] [place] [address], [place] [address] Aug, [facility] [address] [id number] [address] [place] [address], [place] [address] Aug, [facility] [address] [id number] [address] [place] [address], [place] [address] Aug, [facility] [address] [id number] [address] [place] [address], [place] [address] Aug, [facility] [address] [id number] [address] [place] [address], [place] [address] Aug, [facility] [address] [id number] [address] [place] [address], [place] [address] Jul, [facility] [address] [id number] [address] [place] [address], [place] [address] Jul, [facility] [address] [id number] [address] [place] [address], [place] [address] Jul, [facility] [address] [id number] [address] [place] [address], [place] [address] Jul, [facility] [address] [id number] [address] [place] [address], [place] [address] Jun, [facility] [address] [id number] [address] [place] [address], [place] [address] Jun, [facility] [address] [id number] [address] [place] [address], [place] [address] Jun, [facility] [address] [id number] [address] [place] [address], [place] [address] Jun, [facility] [address] [id number] [address] [place] [address], [place] [address] Jun, [facility] [address] [id number] [address] [place] [address], [place] [address] May, [facility] [address] [id number] [address] [place] [address], [place] [address] May, [facility] [address] [id number] [address] [place] [address], [place] [address] May, [facility] [address] [id number] [address] [place] [address], [place] [address] May, [facility] [address] [id number] [address] [place] [address] [place] [address] 18 May, 2013 [facility] [address] [id number] [address] [place] [address], [place] [address] 18 May, 2013 [facility] [address] [id number] [address] [place] [address], [place] [address] 14 May, 2013 [facility] [address] [id number] [address] [place] [address], [place] [address] 12 May, 2013 [facility] [address] [id number] [address] [place] [address], [place] [address] 11 May, 2013 [facility] [address] [id number] [address] [place] [address], [place] [address] 10 May, 2013 [facility] [address] [id number] [address] [place] [address], [place] [address] 10 May, 2013 [facility] [address] [id number] [address] [place] [address], [place] [address] 27 Apr, 2013 [facility] [address] [id number] [address] [place] [address], [place] [address] 19 Apr, 2013 [facility] [address] [id number] [address] [place] [address], [place] [address] 18 Jan, 2013 [facility] [address] [id number] [address] [place] [address], [place] [address] 16 Jan, 2013 [facility] [address] [id number] [address] [place] [address], [place] [address] 14 Dec, 2012 [facility] [address] [id number] [address] [place] [address], [place] [address] Dec, [facility] [address] [id number] [address] [place] [address], [place] [address] November, [facility] [address] [id number] [address] [place] [address], [place] [address] November, [facility] [address] [id number] [address] [place] [address], [place] [address] November, [facility] [address] [id number] [address] [place] [address], [place] [address] November, [facility] [address] [id number] [address] [place] [address], [place] [address] 24 Oct, 2012 [facility] [address] [id number] [address] [place] [address], [place] [address] 14 Sep, 2012 [facility] [address] [id number] [address] [place] [address], [place] [address] Sep, [facility] [address] [id number] [address] [place] [address], [place] [address] 15 Sep, 2012 [facility] [address] [id number] [address] [place] [address], [place] [address] 14 Sep, 2012 [facility] [address] [id number] [address] [place] [address], [place] [address] 08 Sep, 2012 [facility] [address] [id number] [address] [place] [address], [place] [address] 04 Sep, 2012 [facility] [address] [id number] [address] [place] [address], [place] [address] Aug, [facility] [address] [id number] [address] [place] [address], [place] [address] Aug, [facility] [address] [id number] [address] [place] [address], [place] [address] Jul, [facility] [address] [id number] [address] [place] [address], [place] [address] Jul, [facility] [address] [id number] [address] [place] [address], [place] [address] Jun, [facility] [address] [id number] [address] [place] [address], [place] [address] Jun, [facility] [address] [id number] [address] [place] [address], [place] [address] 15 Jun, 2012 [facility] [address] [id number] [address] [place] [address] May, [facility] [address] [id number] [address] [place] [address] May, [facility] [address] [id number] [address] [place] [phone] May, [facility] [address] [id number] [address] [place] [phone] May, [facility] [address] [id number] [address] [place] [phone] Apr, [facility] [address] [id number] [address] [place] [id number] Apr, [facility] [address] [id number] [address] [place] [phone] Sep, [facility] [address] [id number] [address] [place] [phone] Mar, [facility] [address] [id number] [address] [place] [phone] Jan, [facility] [address] [id number] [address] [place] [phone] Oct, [facility] [address] [id number] [address] [place] [phone] May, IMMUNIZATIONS No Known Immunizations SOCIAL HISTORY Never Assessed REASON FOR VISIT PLAN OF CARE VITAL SIGNS MEDICATIONS Unknown Medications RESULTS No Results PROCEDURES No Known procedures INSTRUCTIONS MEDICATIONS ADMINISTERED No Known Medications MEDICAL (GENERAL) HISTORY Type Description Date Medical History asthma Medical History kidney stones Medical History HSV 1 [employer] Surgical History thumb broken age 11 Surgical History kidney stone removed 03/18/2016 Hospitalization History kidney stones/ dehydration/ UTI Dece mber 2014 Hospitalization History ER visit for knee injury March 2018
--- OUTSIDE RECORDS SUMMARY | 2020-01-11 23:04 | XMS REPORT ---
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 Name Role Phone RONDA MCPHERSON Unavailable PROBLEMS Type Condition ICD9-CM Code ONN82-DW Code Onset Dates Condition S tatus SNOMED Code Problem Other chronic pain G89.29 Active 8 6400574 Problem Seasonal allergies J30.2 Active 4 05990101 Problem Asthma, exercise induced J45.990 Activ e 94866773 Problem Recurrent kidney stones N20.0 Active 06629981 ALLERGIES No Information ENCOUNTERS Encounter Location Date Diagnosis [facility] [address] [address] May, [facility] [address] [address] Apr, Sprain of left knee, unspeci fied ligament, initial encounter S83.92XA [place] [address] [place] [id number] [address] [place] [address] Mar, [facility] [address] [address] Mar, [facility] [address] [address] Mar, Injury of left knee, initial encounter S89.92XA and Acute pain of left knee M25.562 [facility] [address] [address] Dec, Seasonal allergies J30.2 ; C ough R05 and Gagging episode R19.8 [facility] [address] [place] [id number] [place] [address] 16 May, 2018 Sore throat J02.9 ; Otalgia, bilateral H92.03 and Allergic rhinitis, unspecified seasonality, unspecified trigger J30.9 [place] [address] [facility] [id number] [address] [place] [address] Oct, [place] [address] [facility] [id number] [address] [place] [address] Jun, Encounter for Depo-Provera c ontraception Z30.42 [place] [address] [facility] [id number] [address] [place] [address] Mar, Encounter for Depo-Provera c ontraception Z30.42 [place] [address] [place] [id number] [place] [address] Jan, test negative Z32. 02 [place] [address] [place] [id number] [address] [place] [address] Dec, Surveillance for contr ol, oral contraceptives Z30.41 and Encounter for Depo-Provera contraception Z30.42 [place] [address] [place] [id number] [address] [place] [address] November, Well woman exam without gyne cological exam Z00.00 [place] [address] [place] [id number] [address] [place] [address] Sep, Pharyngitis due to other org anism J02.8 [place] [address] [facility] [id number] [address] [place] [address] Aug, [place] [address] [facility] [id number] [address] [place] [address] Aug, [place] [address] [place] [id number] [place] [address] Aug, Vaginal candidiasis B37.3 [place] [address] [place] [id number] [address] [place] [address] Aug, Vaginal candidiasis B37.3 [place] [address] [place] [id number] [address] [place] [address] 14 Apr, 2016 Visit for TB skin test Z11.1 [place] [address] [address] Mar, Visit for TB skin test Z11.1 and Screening for tuberculosis Z11.1 [place] [address] [address] Mar, Routine health maintenance Z 00.00 and Recurrent kidney stones N20.0 [place] [address] [address] Mar, Ingrown right greater toenai l L60.0 and Acute non-recurrent frontal sinusitis J01.10 [place] [address] [address] Mar, Ingrowing right great toenai l L60.0 and Recurrent kidney stones N20.0 [place] [address] [address] Dec, Well woman exam without gyne cological exam Z00.00 and Encounter for surveillance of contraceptive pills Z30.[address] [address] Oct, Surveillance for contr ol, oral contraceptives Z30.41 and Sore throat J02.9 [place] [address] [place] [id number] [place] [address] Sep, Renal calculi N20.0 [place] [address] [place] [id number] [place] [address] Aug, Surveillance of contraceptiv e injection Z30.42 ; Encounter for Depo-Provera contraception Z30.42 and Encounter for counseling regarding contraception Z30.9 [place] [address] [place] [id number] [place] [address] Aug, Asthma, exercise induced J45 .990 [place] [address] [place] [id number] [place] [address] May, [facility] [place] [address] [id number] [place] [id number] Mar, Sports physical V70.3 ; Exer cise counseling V65.41 ; Dietary counseling V65.3 and Asthma 493.90 [facility] [address] [facility] [id number] [address] [place] [address] Mar, Encounter for contraceptive management V25.9 [facility] [address] [id number] [address] [place] [address] Jan, Routine child health exam V2 0.2 ; GARDASIL (HPV) DX V04.89 ; MENINGOCOCCAL DX V03.89 ; Dietary counseling and surveillance V65.3 ; Exercise counseling V65.41 and Recurrent nephrolithiasis 592.0 [facility] [address] [facility] [id number] [address] [place] [address] Jan, Kidney stone 592.0 [facility] [address] [facility] [id number] [address] [place] [address] Jan, Herpes simplex without menti on of complication 054.9 [facility] [address] [facility] [id number] [address] [place] [address] Dec, [facility] [address] [facility] [id number] [address] [place] [id number] November, Encounter for contraceptive management V25.9 [facility] [address] [id number] [address] [place] [id number] Oct, [facility] [address] [id number] [address] [place] [address] Oct, [facility] [address] [facility] [id number] [address] [place] [id number] Sep, [facility] [address] [facility] [id number] [address] [place] [id number] Sep, [facility] [address] [facility] [id number] [address] [place] [id number] Sep, [facility] [address] [id number] [address] [place] [address], [place] [address] Sep, [facility] [address] [id number] [address] [place] [address], [place] [address] Aug, [facility] [address] [id number] [address] [place] [address], [place] [address] Aug, [facility] [address] [id number] [address] [place] [address], [place] [address] Aug, [facility] [address] [id number] [address] [place] [address], [place] [address] Aug, [facility] [address] [id number] [address] [place] [address], [place] [address] Jul, [facility] [address] [id number] [address] [place] [address], [place] [address] Jul, [facility] [address] [id number] [address] [place] [address], [place] [address] Jul, [facility] [address] [id number] [address] [place] [address], [place] [address] Jul, [facility] [address] [id number] [address] [place] [address], [place] [address] Jul, [facility] [address] [id number] [address] [place] [address], [place] [address] Jul, [facility] [address] [id number] [address] [place] [address], [place] [address] Jul, [facility] [address] [id number] [address] [place] [address], [place] [address] Jul, [facility] [address] [id number] [address] [place] [address], [place] [address] Jul, [facility] [address] [id number] [address] [place] [address], [place] [address] Jun, [facility] [address] [id number] [address] [place] [address], [place] [address] Jun, [facility] [address] [id number] [address] [place] [address], [place] [address] Jun, [facility] [address] [id number] [address] [place] [address], [place] [address] Jun, [facility] [address] [id number] [address] [place] [address], [place] [address] Jun, [facility] [address] [id number] [address] [place] [address], [place] [address] Jun, [facility] [address] [id number] [address] [place] [address], [place] [address] Jun, [facility] [address] [id number] [address] [place] [address], [place] [address] Jun, [facility] [address] [id number] [address] [place] [address], [place] [address] Jun, [facility] [address] [id number] [address] [place] [address], [place] [address] Jun, [facility] [address] [id number] [address] [place] [address], [place] [address] Jun, [facility] [address] [id number] [address] [place] [address], [place] [address] Jun, [facility] [address] [id number] [address] [place] [address], [place] [address] Jun, [facility] [address] [id number] [address] [place] [address], [place] [address] Jun, [facility] [address] [id number] [address] [place] [address], [place] [address] 15 May, 2014 [facility] [address] [id number] [address] [place] [address], [place] [address] 15 May, 2014 [facility] [address] [id number] [address] [place] [address], [place] [address] May, 2013 [facility] [address] [id number] [address] [place] [address], [place] [address] May, 2013 [facility] [address] [id number] [address] [place] [address], [place] [address] May, [facility] [address] [id number] [address] [place] [address], [place] [address] May, 2013 [facility] [address] [id number] [address] [place] [address], [place] [address] May, 2013 [facility] [address] [id number] [address] [place] [address], [place] [address] May, [facility] [address] [id number] [address] [place] [address], [place] [address] May, [facility] [address] [id number] [address] [place] [address], [place] [address] May, [facility] [address] [id number] [address] [place] [address], [place] [address] Mar, [facility] [address] [id number] [address] [place] [address], [place] [address] Mar, [facility] [address] [id number] [address] [place] [address], [place] [address] Jan, 2013 [facility] [address] [id number] [address] [place] [address], [place] [address] Jan, 2013 [facility] [address] [id number] [address] [place] [id number] Jan, [facility] [address] [id number] [address] [place] [address], [place] [address] Jan, [facility] [address] [id number] [address] [place] [address], [place] [address] Jan, [facility] [address] [id number] [address] [place] [address], [place] [address] Jan, [facility] [address] [id number] [address] [place] [address], [place] [address] November, [facility] [address] [id number] [address] [place] [address], [place] [address] November, [facility] [address] [id number] [address] [place] [address], [place] [address] November, [facility] [address] [id number] [address] [place] [address], [place] [address] November, [facility] [address] [id number] [address] [place] [address], [place] [address] Oct, [facility] [address] [id number] [address] [place] [address], [place] [address] Oct, [facility] [address] [id number] [address] [place] [address], [place] [address] Oct, [facility] [address] [id number] [address] [place] [address], [place] [address] Oct, [facility] [address] [id number] [address] [place] [address], [place] [address] Sep, [facility] [address] [id number] [address] [place] [address], [place] [address] Sep, [facility] [address] [id number] [address] [place] [address], [place] [address] Sep, [facility] [address] [id number] [address] [place] [address], [place] [address] Sep, [facility] [address] [id number] [address] [place] [address], [place] [address] Aug, [facility] [address] [id number] [address] [place] [address], [place] [address] Aug, [facility] [address] [id number] [address] [place] [address], [place] [address] Aug, [facility] [address] [id number] [address] [place] [address], [place] [address] Aug, [facility] [address] [id number] [address] [place] [address], [place] [address] Aug, [facility] [address] [id number] [address] [place] [address], [place] [address] Aug, [facility] [address] [id number] [address] [place] [address], [place] [address] Jul, [facility] [address] [id number] [address] [place] [address], [place] [address] Jul, [facility] [address] [id number] [address] [place] [address], [place] [address] Jul, [facility] [address] [id number] [address] [place] [address], [place] [address] Jul, [facility] [address] [id number] [address] [place] [address], [place] [address] Jun, [facility] [address] [id number] [address] [place] [address], [place] [address] Jun, [facility] [address] [id number] [address] [place] [address], [place] [address] Jun, [facility] [address] [id number] [address] [place] [address], [place] [address] Jun, [facility] [address] [id number] [address] [place] [address], [place] [address] Jun, [facility] [address] [id number] [address] [place] [address], [place] [address] May, [facility] [address] [id number] [address] [place] [address], [place] [address] May, [facility] [address] [id number] [address] [place] [address], [place] [address] May, [facility] [address] [id number] [address] [place] [address], [place] [address] May, [facility] [address] [id number] [address] [place] [address], [place] [address] 18 May, 2013 [facility] [address] [id number] [address] [place] [address], [place] [address] 18 May, 2013 [facility] [address] [id number] [address] [place] [address], [place] [address] 14 May, 2013 [facility] [address] [id number] [address] [place] [address], [place] [address] 12 May, 2013 [facility] [address] [id number] [address] [place] [address], [place] [address] 11 May, 2013 [facility] [address] [id number] [address] [place] [address], [place] [address] 10 May, 2013 [facility] [address] [id number] [address] [place] [address], [place] [address] 10 May, 2013 [facility] [address] [id number] [address] [place] [address], [place] [address] 27 Apr, 2013 [facility] [address] [id number] [address] [place] [address], [place] [address] 19 Apr, 2013 [facility] [address] [id number] [address] [place] [address], [place] [address] 18 Jan, 2013 [facility] [address] [id number] [address] [place] [address], [place] [address] 16 Jan, 2013 [facility] [address] [id number] [address] [place] [address], [place] [address] Dec, [facility] [address] [id number] [address] [place] [address], [place] [address] Dec, [facility] [address] [id number] [address] [place] [address], [place] [address] November, [facility] [address] [id number] [address] [place] [address], [place] [address] November, [facility] [address] [id number] [address] [place] [address], [place] [address] November, [facility] [address] [id number] [address] [place] [address], [place] [address] November, [facility] [address] [id number] [address] [place] [address], [place] [address] 24 Oct, 2012 [facility] [address] [id number] [address] [place] [address], [place] [address] 14 Sep, 2012 [facility] [address] [id number] [address] [place] [address], [place] [address] Sep, [facility] [address] [id number] [address] [place] [address], [place] [address] 15 Sep, 2012 [facility] [address] [id number] [address] [place] [address], [place] [address] 14 Sep, 2012 [facility] [address] [id number] [address] [place] [address], [place] [address] 08 Sep, 2012 [facility] [address] [id number] [address] [place] [address], [place] [address] 04 Sep, 2012 [facility] [address] [id number] [address] [place] [address], [place] [address] 30 Aug, 2012 [facility] [address] [id number] [address] [place] [address], [place] [address] Aug, [facility] [address] [id number] [address] [place] [address], [place] [address] Jul, [facility] [address] [id number] [address] [place] [address], [place] [address] Jul, [facility] [address] [id number] [address] [place] [address], [place] [address] Jun, [facility] [address] [id number] [address] [place] [address], [place] [address] 15 Jun, 2012 [facility] [address] [id number] [address] [place] [address], [place] [address] 15 Jun, 2012 [facility] [address] [id number] [address] [place] [address], [place] [address] May, [facility] [address] [id number] [address] [place] [address] May, [facility] [address] [id number] [address] [place] [phone] May, [facility] [address] [id number] [address] [place] [phone] May, [facility] [address] [id number] [address] [place] [phone] Apr, [facility] [address] [id number] [address] [place] [phone] Apr, [facility] [address] [id number] [address] [place] [phone] Sep, [facility] [address] [id number] [address] [place] [phone] Mar, [facility] [address] [id number] [address] [place] [phone] Jan, [facility] [address] [id number] [address] [place] [phone] Oct, [facility] [address] [id number] [address] [place] [phone] May, IMMUNIZATIONS No Known Immunizations SOCIAL HISTORY Never Assessed REASON FOR VISIT PLAN OF CARE VITAL SIGNS MEDICATIONS Unknown Medications RESULTS No Results PROCEDURES No Known procedures INSTRUCTIONS MEDICATIONS ADMINISTERED No Known Medications MEDICAL (GENERAL) HISTORY Type Description Date Medical History asthma Medical History kidney stones Medical History HSV 1 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
--- OUTSIDE RECORDS SUMMARY | 2020-01-11 23:04 | XMS REPORT ---
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 Name Role Phone PILAR Zuluaga Unavailable PROBLEMS Type Condition ICD9-CM Code VUX49-RR Code Onset Dates Condition S tatus SNOMED Code Problem Other chronic pain G89.29 Active 8 3034358 Problem Seasonal allergies J30.2 Active 4 44550993 Problem Asthma, exercise induced J45.990 Activ e 79318250 Problem Recurrent kidney stones N20.0 Active 43363761 ALLERGIES No Information ENCOUNTERS Encounter Location Date Diagnosis [place] [address] [address] May, [facility] [address] [address] Apr, Sprain of left knee, unspeci fied ligament, initial encounter S83.92XA [place] [address] [place] [id number] [place] [address] Mar, [facility] [address] [address] Mar, [facility] [address] [address] Mar, Injury of left knee, initial encounter S89.92XA and Acute pain of left knee M25.562 [facility] [address] [place] [id number] [place] [address] Dec, Seasonal allergies J30.2 ; C ough R05 and Gagging episode R19.8 [facility] [address] [place] [id number] [place] [address] November, Sore throat J02.9 ; Otalgia, bilateral H92.03 and Allergic rhinitis, unspecified seasonality, unspecified trigger J30.9 [place] [address] [place] [id number] [place] [address] Oct, [place] [address] [place] [id number] [address] [place] [address] Jun, Encounter for Depo-Provera c ontraception Z30.42 [place] [address] [place] [id number] [place] [address] Mar, Encounter for Depo-Provera c ontraception Z30.42 [place] [address] [place] [id number] [place] [address] Jan, test negative Z32. 02 [place] [address] [address] Dec, Surveillance for contr ol, oral contraceptives Z30.41 and Encounter for Depo-Provera contraception Z30.42 [place] [address] [place] [id number] [place] [address] November, Well woman exam without gyne cological exam Z00.00 [place] [address] [place] [id number] [address] [place] [address] Sep, Pharyngitis due to other org anism J02.8 [place] [id number] [place] [address] Aug, [place] [id number] [place] [address] Aug, [place] [address] [place] [id number] [place] [address] Aug, Vaginal candidiasis B37.3 [place] [id number] [place] [address] Aug, Vaginal candidiasis B37.3 [place] [address] [place] [id number] [place] [address] 14 Apr, 2016 Visit for TB skin test Z11.1 [place] [address] [address] 31 Mar, 2016 Visit for TB skin test Z11.1 and Screening for tuberculosis Z11.1 [place] [address] [address] Mar, Routine health maintenance Z 00.00 and Recurrent kidney stones N20.0 [place] [address] [place] [id number] [place] [address] Mar, Ingrown right greater toenai l L60.0 and Acute non-recurrent frontal sinusitis J01.10 [place] [address] [address] Mar, Ingrowing right great toenai l L60.0 and Recurrent kidney stones N20.0 [place] [address] [place] [id number] [place] [address] Dec, Well woman exam without gyne cological exam Z00.00 and Encounter for surveillance of contraceptive pills Z30.41 [place] [address] [place] [id number] [place] [address] Oct, Surveillance for contr ol, oral contraceptives Z30.41 and Sore throat J02.9 [place] [id number] [address] [place] [address] Sep, Renal calculi N20.0 [place] [address] [place] [id number] [place] [address] Aug, Surveillance of contraceptiv e injection Z30.42 ; Encounter for Depo-Provera contraception Z30.42 and Encounter for counseling regarding contraception Z30.9 [place] [address] [place] [id number] [address] [place] [address] Aug, Asthma, exercise induced J45 .990 [place] [address] [place] [id number] [place] [address] May, [facility] [address] [id number] [place] [id number] Mar, Sports physical V70.3 ; Exer cise counseling V65.41 ; Dietary counseling V65.3 and Asthma 493.90 [facility] [address] [id number] [address] [place] [address] Mar, Encounter for contraceptive management V25.9 [facility] [address] [id number] [address] [place] [address] Jan, Routine child health exam V2 0.2 ; GARDASIL (HPV) DX V04.89 ; MENINGOCOCCAL DX V03.89 ; Dietary counseling and surveillance V65.3 ; Exercise counseling V65.41 and Recurrent nephrolithiasis 592.0 [facility] [address] [facility] [id number] [address] [place] [address] Jan, Kidney stone 592.0 [facility] [address] [facility] [id number] [address] [place] [address] Jan, Herpes simplex without menti on of complication 054.9 [facility] [address] [facility] [id number] [address] [place] [address] Dec, [facility] [address] [facility] [id number] [address] [place] [address] November, Encounter for contraceptive management V25.9 [facility] [address] [id number] [address] [place] [address] Oct, [facility] [address] [id number] [address] [place] [address] Oct, [facility] [address] [facility] [id number] [address] [place] [address] Sep, [facility] [address] [facility] [id number] [address] [place] [address] Sep, [facility] [address] [id number] [address] [place] [address], [place] [address] 10 Sep, 2014 [facility] [address] [id number] [address] [place] [address], [place] [address] 10 Sep, 2014 [facility] [address] [id number] [address] [place] [address], [place] [address] Aug, [facility] [address] [id number] [address] [place] [address], [place] [address] Aug, [facility] [address] [id number] [address] [place] [address], [place] [address] Aug, [facility] [address] [id number] [address] [place] [address], [place] [address] Aug, [facility] [address] [id number] [address] [place] [address], [place] [address] Jul, [facility] [address] [id number] [address] [place] [address], [place] [address] Jul, [facility] [address] [id number] [address] [place] [address], [place] [address] Jul, [facility] [address] [id number] [address] [place] [address], [place] [address] Jul, [facility] [address] [id number] [address] [place] [address], [place] [address] Jul, [facility] [address] [id number] [address] [place] [address], [place] [address] Jul, [facility] [address] [id number] [address] [place] [address], [place] [address] Jul, [facility] [address] [id number] [address] [place] [address], [place] [address] Jul, [facility] [address] [id number] [address] [place] [address], [place] [address] Jul, [facility] [address] [id number] [address] [place] [address], [place] [address] Jun, [facility] [address] [id number] [address] [place] [address], [place] [address] Jun, [facility] [address] [id number] [address] [place] [address], [place] [address] Jun, [facility] [address] [id number] [address] [place] [address], [place] [address] Jun, [facility] [address] [id number] [address] [place] [address], [place] [address] Jun, [facility] [address] [id number] [address] [place] [address], [place] [address] Jun, [facility] [address] [id number] [address] [place] [address], [place] [address] Jun, [facility] [address] [id number] [address] [place] [address], [place] [address] Jun, [facility] [address] [id number] [address] [place] [address], [place] [address] Jun, [facility] [address] [id number] [address] [place] [address], [place] [address] Jun, [facility] [address] [id number] [address] [place] [address], [place] [address] Jun, [facility] [address] [id number] [address] [place] [address], [place] [address] Jun, [facility] [address] [id number] [address] [place] [address], [place] [address] Jun, [facility] [address] [id number] [address] [place] [address], [place] [address] Jun, [facility] [address] [id number] [address] [place] [address], [place] [address] May, [facility] [address] [id number] [address] [place] [address], [place] [address] May, [facility] [address] [id number] [address] [place] [address] May, [facility] [address] [id number] [address] [place] [address], [place] [address] May, [facility] [address] [id number] [address] [place] [address], [place] [address] May, [facility] [address] [id number] [address] [place] [address], [place] [address] May, 2013 [facility] [address] [id number] [address] [place] [address], [place] [address] May, [facility] [address] [id number] [address] [place] [address], [place] [address] May, [facility] [address] [id number] [address] [place] [address], [place] [address] May, [facility] [address] [id number] [address] [place] [address], [place] [address] May, [facility] [address] [id number] [address] [place] [address], [place] [address] Mar, [facility] [address] [id number] [address] [place] [address], [place] [address] Mar, [facility] [address] [id number] [address] [place] [address], [place] [address] Jan, [facility] [address] [id number] [address] [place] [address], [place] [address] Jan, 2013 [facility] [address] [id number] [address] [place] [address] Jan, [facility] [address] [id number] [address] [place] [address], [place] [address] Jan, 2013 [facility] [address] [id number] [address] [place] [address], [place] [address] Jan, [facility] [address] [id number] [address] [place] [address], [place] [address] Jan, 2013 [facility] [address] [id number] [address] [place] [address], [place] [address] November, [facility] [address] [id number] [address] [place] [address], [place] [address] November, [facility] [address] [id number] [address] [place] [address], [place] [address] November, [facility] [address] [id number] [address] [place] [address], [place] [address] November, [facility] [address] [id number] [address] [place] [address], [place] [address] Oct, [facility] [address] [id number] [address] [place] [address], [place] [address] Oct, [facility] [address] [id number] [address] [place] [address], [place] [address] Oct, [facility] [address] [id number] [address] [place] [address], [place] [address] Oct, [facility] [address] [id number] [address] [place] [address], [place] [address] Sep, [facility] [address] [id number] [address] [place] [address], [place] [address] Sep, [facility] [address] [id number] [address] [place] [address], [place] [address] Sep, [facility] [address] [id number] [address] [place] [address], [place] [address] Sep, [facility] [address] [id number] [address] [place] [address], [place] [address] Aug, [facility] [address] [id number] [address] [place] [address], [place] [address] Aug, [facility] [address] [id number] [address] [place] [address], [place] [address] Aug, [facility] [address] [id number] [address] [place] [address], [place] [address] Aug, [facility] [address] [id number] [address] [place] [address], [place] [address] Aug, [facility] [address] [id number] [address] [place] [address], [place] [address] Aug, [facility] [address] [id number] [address] [place] [address], [place] [address] Jul, [facility] [address] [id number] [address] [place] [address], [place] [address] Jul, [facility] [address] [id number] [address] [place] [address], [place] [address] Jul, [facility] [address] [id number] [address] [place] [address], [place] [address] Jul, [facility] [address] [id number] [address] [place] [address], [place] [address] Jun, [facility] [address] [id number] [address] [place] [address], [place] [address] Jun, [facility] [address] [id number] [address] [place] [address], [place] [address] Jun, [facility] [address] [id number] [address] [place] [address], [place] [address] Jun, [facility] [address] [id number] [address] [place] [address], [place] [address] Jun, [facility] [address] [id number] [address] [place] [address], [place] [address] May, [facility] [address] [id number] [address] [place] [address], [place] [address] May, [facility] [address] [id number] [address] [place] [address], [place] [address] May, [facility] [address] [id number] [address] [place] [address], [place] [address] May, [facility] [address] [id number] [address] [place] [address] [place] [address] 18 May, 2013 [facility] [address] [id number] [address] [place] [address], [place] [address] 18 May, 2013 [facility] [address] [id number] [address] [place] [address], [place] [address] 14 May, 2013 [facility] [address] [id number] [address] [place] [address], [place] [address] 12 May, 2013 [facility] [address] [id number] [address] [place] [address], [place] [address] 11 May, 2013 [facility] [address] [id number] [address] [place] [address], [place] [address] 10 May, 2013 [facility] [address] [id number] [address] [place] [address], [place] [address] 10 May, 2013 [facility] [address] [id number] [address] [place] [address], [place] [address] 27 Apr, 2013 [facility] [address] [id number] [address] [place] [address], [place] [address] 19 Apr, 2013 [facility] [address] [id number] [address] [place] [address], [place] [address] 18 Jan, 2013 [facility] [address] [id number] [address] [place] [address], [place] [address] 16 Jan, 2013 [facility] [address] [id number] [address] [place] [address], [place] [address] 14 Dec, 2012 [facility] [address] [id number] [address] [place] [address], [place] [address] Dec, [facility] [address] [id number] [address] [place] [address], [place] [address] November, [facility] [address] [id number] [address] [place] [address], [place] [address] November, [facility] [address] [id number] [address] [place] [address], [place] [address] November, [facility] [address] [id number] [address] [place] [address], [place] [address] November, [facility] [address] [id number] [address] [place] [address], [place] [address] 24 Oct, 2012 [facility] [address] [id number] [address] [place] [address], [place] [address] 14 Sep, 2012 [facility] [address] [id number] [address] [place] [address], [place] [address] Sep, [facility] [address] [id number] [address] [place] [address], [place] [address] 15 Sep, 2012 [facility] [address] [id number] [address] [place] [address], [place] [address] 14 Sep, 2012 [facility] [address] [id number] [address] [place] [address], [place] [address] 08 Sep, 2012 [facility] [address] [id number] [address] [place] [address], [place] [address] 04 Sep, 2012 [facility] [address] [id number] [address] [place] [address], [place] [address] Aug, [facility] [address] [id number] [address] [place] [address], [place] [address] Aug, [facility] [address] [id number] [address] [place] [address], [place] [address] Jul, [facility] [address] [id number] [address] [place] [address], [place] [address] Jul, [facility] [address] [id number] [address] [place] [address], [place] [address] Jun, [facility] [address] [id number] [address] [place] [address], [place] [address] Jun, [facility] [address] [id number] [address] [place] [address], [place] [address] 15 Jun, 2012 [facility] [address] [id number] [address] [place] [address] May, [facility] [address] [id number] [address] [place] [address] May, [facility] [address] [id number] [address] [place] [phone] May, [facility] [address] [id number] [address] [place] [phone] May, [facility] [address] [id number] [address] [place] [phone] Apr, [facility] [address] [id number] [address] [place] [phone] Apr, [facility] [address] [id number] [address] [place] [phone] Sep, [facility] [address] [id number] [address] [place] [phone] Mar, [facility] [address] [id number] [address] [place] [phone] Jan, [facility] [address] [id number] [address] [place] [phone] Oct, [facility] [address] [id number] [address] [place] [phone] May, IMMUNIZATIONS No Known Immunizations SOCIAL HISTORY Never Assessed REASON FOR VISIT PLAN OF CARE VITAL SIGNS MEDICATIONS Unknown Medications RESULTS No Results PROCEDURES No Known procedures INSTRUCTIONS MEDICATIONS ADMINISTERED No Known Medications MEDICAL (GENERAL) HISTORY Type Description Date Medical History asthma Medical History kidney stones Medical History HSV 1 [employer] Surgical History thumb broken age 11 Surgical History kidney stone removed 03/18/2016 Hospitalization History kidney stones/ dehydration/ UTI Dece mber 2014 Hospitalization History ER visit for knee injury March 2018
--- OUTSIDE RECORDS SUMMARY | 2020-01-11 23:04 | XMS REPORT ---
Author Author Cedric Zuluaga Organization [facility] Address [address] [place] [address] Care Team Providers Care Splunk Dashboard Developer Name Role Phone PILAR Zuluaga Unavailable PROBLEMS Type Condition ICD9-CM Code CGM98-VX Code Onset Dates Condition S tatus SNOMED Code Problem Other chronic pain G89.29 Active 8 4930745 Problem Seasonal allergies J30.2 Active 4 53053957 Problem Asthma, exercise induced J45.990 Activ e 93918641 Problem Recurrent kidney stones N20.0 Active [id number] ALLERGIES No Information ENCOUNTERS Encounter Location Date Diagnosis [place] [address] [address] May, [facility] [address] [address] Apr, Sprain of left knee, unspeci fied ligament, initial encounter S83.92XA [place] [address] [place] [id number] [place] [address] Mar, [facility] [address] [address] Mar, [facility] [address] [address] Mar, Injury of left knee, initial encounter S89.92XA and Acute pain of left knee M25.562 [facility] [address] [place] [id number] [place] [address] Dec, Seasonal allergies J30.2 ; C ough R05 and Gagging episode R19.8 [facility] [address] [place] [id number] [place] [address] November, Sore throat J02.9 ; Otalgia, bilateral H92.03 and Allergic rhinitis, unspecified seasonality, unspecified trigger J30.9 [place] [address] [place] [id number] [place] [address] Oct, [place] [address] [place] [id number] [address] [place] [address] Jun, Encounter for Depo-Provera c ontraception Z30.42 [place] [address] [place] [id number] [place] [address] Mar, Encounter for Depo-Provera c ontraception Z30.42 [place] [address] [place] [id number] [place] [address] Jan, test negative Z32. 02 [place] [address] [address] Dec, Surveillance for contr ol, oral contraceptives Z30.41 and Encounter for Depo-Provera contraception Z30.42 [place] [address] [place] [id number] [place] [address] November, Well woman exam without gyne cological exam Z00.00 [place] [address] [place] [id number] [address] [place] [address] Sep, Pharyngitis due to other org anism J02.8 [place] [address] [place] [address] Aug, [place] [address] [place] [address] Aug, [place] [address] [place] [id number] [place] [address] Aug, Vaginal candidiasis B37.3 [place] [address] [place] [address] Aug, Vaginal candidiasis B37.3 [place] [address] [place] [address] [place] [address] 14 Apr, 2016 Visit for TB skin test Z11.1 [place] [address] [address] 31 Mar, 2016 Visit for TB skin test Z11.1 and Screening for tuberculosis Z11.1 [place] [address] [address] Mar, Routine health maintenance Z 00.00 and Recurrent kidney stones N20.0 [place] [address] [place] [id number] [place] [address] Mar, Ingrown right greater toenai l L60.0 and Acute non-recurrent frontal sinusitis J01.10 [place] [address] [address] Mar, Ingrowing right great toenai l L60.0 and Recurrent kidney stones N20.0 [place] [address] [place] [id number] [place] [address] Dec, Well woman exam without gyne cological exam Z00.00 and Encounter for surveillance of contraceptive pills Z30.41 [place] [address] [place] [id number] [place] [address] Oct, Surveillance for contr ol, oral contraceptives Z30.41 and Sore throat J02.9 [place] [id number] [place] [address] Sep, Renal calculi N20.0 [place] [address] [place] [id number] [place] [address] Aug, Surveillance of contraceptiv e injection Z30.42 ; Encounter for Depo-Provera contraception Z30.42 and Encounter for counseling regarding contraception Z30.9 [place] [address] [place] [id number] [address] [place] [address] Aug, Asthma, exercise induced J45 .990 [place] [address] [place] [id number] [place] [address] May, [facility] [place] [address] [id number] [place] [id number] Mar, Sports physical V70.3 ; Exer cise counseling V65.41 ; Dietary counseling V65.3 and Asthma 493.90 [facility] [address] [id number] [address] [place] [address] Mar, Encounter for contraceptive management V25.9 [facility] [address] [id number] [address] [place] [address] Jan, Routine child health exam V2 0.2 ; GARDASIL (HPV) DX V04.89 ; MENINGOCOCCAL DX V03.89 ; Dietary counseling and surveillance V65.3 ; Exercise counseling V65.41 and Recurrent nephrolithiasis 592.0 [facility] [address] [facility] [facility] [id number] [address] [place] [address] Jan, Kidney stone 592.0 [facility] [address] [facility] [address] [facility] [id number] [address] [place] [address] Jan, Herpes simplex without menti on of complication 054.9 [facility] [address] [facility] [address] [facility] [id number] [address] [place] [address] Dec, [facility] [address] [address] [facility] [id number] [address] [place] [address] November, Encounter for contraceptive management V25.9 [facility] [address] [id number] [address] [place] [address] Oct, [facility] [address] [id number] [address] [place] [address] Oct, [facility] [address] [facility] [address] [facility] [id number] [address] [place] [address] Sep, [facility] [address] [facility] [address] [facility] [id number] [address] [place] [address] Sep, [facility] [address] [id number] [address] [place] [address], [place] [address] 10 Sep, 2014 [facility] [address] [id number] [address] [place] [address], [place] [address] 10 Sep, 2014 [facility] [address] [id number] [address] [place] [address], [place] [address] Aug, [facility] [address] [id number] [address] [place] [address], [place] [address] Aug, [facility] [address] [id number] [address] [place] [address], [place] [address] Aug, [facility] [address] [id number] [address] [place] [address], [place] [address] Aug, [facility] [address] [id number] [address] [place] [address], [place] [address] Jul, [facility] [address] [id number] [address] [place] [address], [place] [address] Jul, [facility] [address] [id number] [address] [place] [address], [place] [address] Jul, [facility] [address] [id number] [address] [place] [address], [place] [address] Jul, [facility] [address] [id number] [address] [place] [address], [place] [address] Jul, [facility] [address] [id number] [address] [place] [address], [place] [address] Jul, [facility] [address] [id number] [address] [place] [address], [place] [address] Jul, [facility] [address] [id number] [address] [place] [address], [place] [address] Jul, [facility] [address] [id number] [address] [place] [address], [place] [address] Jul, [facility] [address] [id number] [address] [place] [address], [place] [address] Jun, [facility] [address] [id number] [address] [place] [address], [place] [address] Jun, [facility] [address] [id number] [address] [place] [address], [place] [address] Jun, [facility] [address] [id number] [address] [place] [address], [place] [address] Jun, [facility] [address] [id number] [address] [place] [address], [place] [address] Jun, [facility] [address] [id number] [address] [place] [address], [place] [address] Jun, [facility] [address] [id number] [address] [place] [address], [place] [address] Jun, [facility] [address] [id number] [address] [place] [address], [place] [address] Jun, [facility] [address] [id number] [address] [place] [address], [place] [address] Jun, [facility] [address] [id number] [address] [place] [address], [place] [address] Jun, [facility] [address] [id number] [address] [place] [address], [place] [address] Jun, [facility] [address] [id number] [address] [place] [address], [place] [address] Jun, [facility] [address] [id number] [address] [place] [address], [place] [address] Jun, [facility] [address] [id number] [address] [place] [address], [place] [address] Jun, [facility] [address] [id number] [address] [place] [address], [place] [address] May, [facility] [address] [id number] [address] [place] [address], [place] [address] May, [facility] [address] [id number] [address] [place] [address] May, [facility] [address] [id number] [address] [place] [address], [place] [address] May, [facility] [address] [id number] [address] [place] [address], [place] [address] May, [facility] [address] [id number] [address] [place] [address], [place] [address] May, 2013 [facility] [address] [id number] [address] [place] [address], [place] [address] May, [facility] [address] [id number] [address] [place] [address], [place] [address] May, [facility] [address] [id number] [address] [place] [address], [place] [address] May, [facility] [address] [id number] [address] [place] [address], [place] [address] May, [facility] [address] [id number] [address] [place] [address], [place] [address] Mar, [facility] [address] [id number] [address] [place] [address], [place] [address] Mar, [facility] [address] [id number] [address] [place] [address], [place] [address] Jan, [facility] [address] [id number] [address] [place] [address], [place] [address] Jan, 2013 [facility] [address] [id number] [address] [place] [address] Jan, [facility] [address] [id number] [address] [place] [address], [place] [address] Jan, 2013 [facility] [address] [id number] [address] [place] [address], [place] [address] Jan, [facility] [address] [id number] [address] [place] [address], [place] [address] Jan, 2013 [facility] [address] [id number] [address] [place] [address], [place] [address] November, [facility] [address] [id number] [address] [place] [address], [place] [address] November, [facility] [address] [id number] [address] [place] [address], [place] [address] November, [facility] [address] [id number] [address] [place] [address], [place] [address] November, [facility] [address] [id number] [address] [place] [address], [place] [address] Oct, [facility] [address] [id number] [address] [place] [address], [place] [address] Oct, [facility] [address] [id number] [address] [place] [address], [place] [address] Oct, [facility] [address] [id number] [address] [place] [address], [place] [address] Oct, [facility] [address] [id number] [address] [place] [address], [place] [address] Sep, [facility] [address] [id number] [address] [place] [address], [place] [address] Sep, [facility] [address] [id number] [address] [place] [address], [place] [address] Sep, [facility] [address] [id number] [address] [place] [address], [place] [address] Sep, [facility] [address] [id number] [address] [place] [address], [place] [address] Aug, [facility] [address] [id number] [address] [place] [address], [place] [address] Aug, [facility] [address] [id number] [address] [place] [address], [place] [address] Aug, [facility] [address] [id number] [address] [place] [address], [place] [address] Aug, [facility] [address] [id number] [address] [place] [address], [place] [address] Aug, [facility] [address] [id number] [address] [place] [address], [place] [address] Aug, [facility] [address] [id number] [address] [place] [address], [place] [address] Jul, [facility] [address] [id number] [address] [place] [address], [place] [address] Jul, [facility] [address] [id number] [address] [place] [address], [place] [address] Jul, [facility] [address] [id number] [address] [place] [address], [place] [address] Jul, [facility] [address] [id number] [address] [place] [address], [place] [address] Jun, [facility] [address] [id number] [address] [place] [address], [place] [address] Jun, [facility] [address] [id number] [address] [place] [address], [place] [address] Jun, [facility] [address] [id number] [address] [place] [address], [place] [address] Jun, [facility] [address] [id number] [address] [place] [address], [place] [address] Jun, [facility] [address] [id number] [address] [place] [address], [place] [address] May, [facility] [address] [id number] [address] [place] [address], [place] [address] May, [facility] [address] [id number] [address] [place] [address], [place] [address] May, [facility] [address] [id number] [address] [place] [address], [place] [address] May, [facility] [address] [id number] [address] [place] [address] [place] [address] 18 May, 2013 [facility] [address] [id number] [address] [place] [address], [place] [address] 18 May, 2013 [facility] [address] [id number] [address] [place] [address], [place] [address] 14 May, 2013 [facility] [address] [id number] [address] [place] [address], [place] [address] 12 May, 2013 [facility] [address] [id number] [address] [place] [address], [place] [address] 11 May, 2013 [facility] [address] [id number] [address] [place] [address], [place] [address] 10 May, 2013 [facility] [address] [id number] [address] [place] [address], [place] [address] 10 May, 2013 [facility] [address] [id number] [address] [place] [address], [place] [address] 27 Apr, 2013 [facility] [address] [id number] [address] [place] [address], [place] [address] 19 Apr, 2013 [facility] [address] [id number] [address] [place] [address], [place] [address] 18 Jan, 2013 [facility] [address] [id number] [address] [place] [address], [place] [address] 16 Jan, 2013 [facility] [address] [id number] [address] [place] [address], [place] [address] 14 Dec, 2012 [facility] [address] [id number] [address] [place] [address], [place] [address] Dec, [facility] [address] [id number] [address] [place] [address], [place] [address] November, [facility] [address] [id number] [address] [place] [address], [place] [address] November, [facility] [address] [id number] [address] [place] [address], [place] [address] November, [facility] [address] [id number] [address] [place] [address], [place] [address] November, [facility] [address] [id number] [address] [place] [address], [place] [address] 24 Oct, 2012 [facility] [address] [id number] [address] [place] [address], [place] [address] 14 Sep, 2012 [facility] [address] [id number] [address] [place] [address], [place] [address] Sep, [facility] [address] [id number] [address] [place] [address], [place] [address] 15 Sep, 2012 [facility] [address] [id number] [address] [place] [address], [place] [address] 14 Sep, 2012 [facility] [address] [id number] [address] [place] [address], [place] [address] 08 Sep, 2012 [facility] [address] [id number] [address] [place] [address], [place] [address] 04 Sep, 2012 [facility] [address] [id number] [address] [place] [address], [place] [address] Aug, [facility] [address] [id number] [address] [place] [address], [place] [address] Aug, [facility] [address] [id number] [address] [place] [address], [place] [address] Jul, [facility] [address] [id number] [address] [place] [address], [place] [address] Jul, [facility] [address] [id number] [address] [place] [address], [place] [address] Jun, [facility] [address] [id number] [address] [place] [address], [place] [address] Jun, [facility] [address] [id number] [address] [place] [address], [place] [address] 15 Jun, 2012 [facility] [address] [id number] [address] [place] [phone] May, [facility] [address] [id number] [address] [place] [phone] May, [facility] [address] [id number] [address] [place] [phone] May, [facility] [address] [id number] [address] [place] [phone] May, [facility] [address] [id number] [address] [place] [phone] Apr, [facility] [address] [id number] [address] [place] [phone] Apr, [facility] [address] [id number] [address] [place] [id number] Sep, [facility] [address] [id number] [address] [place] [phone] Mar, [facility] [address] [id number] [address] [place] [id number] Jan, [facility] [address] [id number] [address] [place] [phone] Oct, [facility] [address] [id number] [address] [place] [phone] May, IMMUNIZATIONS No Known Immunizations SOCIAL HISTORY Never Assessed REASON FOR VISIT PLAN OF CARE VITAL SIGNS Height 62 in 2014-05-08 Weight 148.4 lbs 2014-05-08 Temperature 97.8 degrees Fahrenheit 2014-05-08 Heart Rate 85 bpm 2014-05-08 Respiratory Rate 16 2014-05-08 Blood pressure systolic 100 mmHg 2014-05-08 Blood pressure diastolic 70 mmHg 2014-05-08 MEDICATIONS Unknown Medications RESULTS No Results PROCEDURES Procedure Date Ordered Result Body Site X-RAY EXAM OF HAND May 08, 2014 INSTRUCTIONS MEDICATIONS ADMINISTERED No Known Medications MEDICAL (GENERAL) HISTORY Type Description Date Medical History asthma Medical History kidney stones Medical History HSV 1 [employer] Surgical History thumb broken age 11 Surgical History kidney stone removed 03/18/2016 Hospitalization History kidney stones/ dehydration/ UTI Dece mber 2014 Hospitalization History ER visit for knee injury March 2018
--- OUTSIDE RECORDS SUMMARY | 2020-01-11 23:04 | XMS REPORT ---
Author Author Cedric MCPHERSON Organization 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 [address] [address] May, [facility] [address] [address] Apr, Sprain of left knee, unspeci fied ligament, initial encounter S83.92XA [place] [address] [place] [id number] [address] [place] [address] Mar, [facility] [address] [address] Mar, [facility] [address] [address] Mar, Injury of left knee, initial encounter S89.92XA and Acute pain of left knee M25.562 [facility] [address] [address] Dec, Seasonal allergies J30.2 ; C ough R05 and Gagging episode R19.8 [facility] [address] [place] [id number] [place] [address] 16 May, 2018 Sore throat J02.9 ; Otalgia, bilateral H92.03 and Allergic rhinitis, unspecified seasonality, unspecified trigger J30.9 [place] [address] [facility] [id number] [address] [place] [address] Oct, [place] [address] [address] [facility] [id number] [address] [place] [address] Jun, Encounter for Depo-Provera c ontraception Z30.42 [place] [address] [address] [facility] [id number] [address] [place] [address] Mar, Encounter for Depo-Provera c ontraception Z30.42 [place] [address] [place] [id number] [place] [address] Jan, test negative Z32. 02 [place] [address] [place] [id number] [address] [place] [address] Dec, Surveillance for contr ol, oral contraceptives Z30.41 and Encounter for Depo-Provera contraception Z30.42 [place] [address] [place] [id number] [address] [place] [address] November, Well woman exam without gyne cological exam Z00.00 [place] [address] [place] [id number] [address] [place] [address] Sep, Pharyngitis due to other org anism J02.8 [place] [address] [address] [facility] [id number] [address] [place] [address] Aug, [place] [address] [facility] [id number] [address] [place] [address] Aug, [place] [address] [place] [id number] [place] [address] Aug, Vaginal candidiasis B37.3 [place] [address] [place] [id number] [address] [place] [address] Aug, Vaginal candidiasis B37.3 [place] [address] [place] [id number] [address] [place] [address] 14 Apr, 2016 Visit for TB skin test Z11.1 [place] [address] [address] Mar, Visit for TB skin test Z11.1 and Screening for tuberculosis Z11.1 [place] [address] [address] Mar, Routine health maintenance Z 00.00 and Recurrent kidney stones N20.0 [place] [address] [address] Mar, Ingrown right greater toenai l L60.0 and Acute non-recurrent frontal sinusitis J01.10 [place] [address] [address] Mar, Ingrowing right great toenai l L60.0 and Recurrent kidney stones N20.0 [place] [address] [address] Dec, Well woman exam without gyne cological exam Z00.00 and Encounter for surveillance of contraceptive pills Z30.[address] [address] Oct, Surveillance for contr ol, oral contraceptives Z30.41 and Sore throat J02.9 [place] [address] [place] [id number] [place] [address] Sep, Renal calculi N20.0 [place] [address] [place] [id number] [place] [address] Aug, Surveillance of contraceptiv e injection Z30.42 ; Encounter for Depo-Provera contraception Z30.42 and Encounter for counseling regarding contraception Z30.9 [place] [address] [place] [id number] [place] [address] Aug, Asthma, exercise induced J45 .990 [place] [address] [place] [id number] [place] [address] May, [facility] [address] [id number] [place] [id number] Mar, Sports physical V70.3 ; Exer cise counseling V65.41 ; Dietary counseling V65.[address] [facility] [address] [facility] [id number] [address] [place] [address] Mar, Encounter for contraceptive management V25.9 [facility] [address] [id number] [address] [place] [address] Jan, Routine child health exam V2 0.2 ; GARDASIL (HPV) DX V04.89 ; MENINGOCOCCAL DX V03.89 ; Dietary counseling and surveillance V65.3 ; Exercise counseling V65.41 and Recurrent nephrolithiasis 592.0 [facility] [address] [facility] [id number] [address] [place] [address] Jan, Kidney stone 592.0 [facility] [address] [facility] [id number] [address] [place] [address] Jan, Herpes simplex without menti on of complication 054.9 [facility] [address] [facility] [id number] [address] [place] [address] Dec, [facility] [address] [facility] [id number] [address] [place] [address] November, Encounter for contraceptive management V25.9 [facility] [address] [id number] [address] [place] [address] Oct, [facility] [address] [id number] [address] [place] [address] Oct, [facility] [address] [facility] [id number] [address] [place] [address] Sep, [facility] [address] [facility] [id number] [address] [place] [address] Sep, [facility] [address] [facility] [id number] [address] [place] [address] Sep, [facility] [address] [id number] [address] [place] [address], [place] [address] Sep, [facility] [address] [id number] [address] [place] [address], [place] [address] Aug, [facility] [address] [id number] [address] [place] [address], [place] [address] Aug, [facility] [address] [id number] [address] [place] [address], [place] [address] Aug, [facility] [address] [id number] [address] [place] [address], [place] [address] Aug, [facility] [address] [id number] [address] [place] [address], [place] [address] Jul, [facility] [address] [id number] [address] [place] [address], [place] [address] Jul, [facility] [address] [id number] [address] [place] [address], [place] [address] Jul, [facility] [address] [id number] [address] [place] [address], [place] [address] Jul, [facility] [address] [id number] [address] [place] [address], [place] [address] Jul, [facility] [address] [id number] [address] [place] [address], [place] [address] Jul, [facility] [address] [id number] [address] [place] [address], [place] [address] Jul, [facility] [address] [id number] [address] [place] [address], [place] [address] Jul, [facility] [address] [id number] [address] [place] [address], [place] [address] Jul, [facility] [address] [id number] [address] [place] [address], [place] [address] Jun, [facility] [address] [id number] [address] [place] [address], [place] [address] Jun, [facility] [address] [id number] [address] [place] [address], [place] [address] Jun, [facility] [address] [id number] [address] [place] [address], [place] [address] Jun, [facility] [address] [id number] [address] [place] [address], [place] [address] Jun, [facility] [address] [id number] [address] [place] [address], [place] [address] Jun, [facility] [address] [id number] [address] [place] [address], [place] [address] Jun, [facility] [address] [id number] [address] [place] [address], [place] [address] Jun, [facility] [address] [id number] [address] [place] [address], [place] [address] Jun, [facility] [address] [id number] [address] [place] [address], [place] [address] Jun, [facility] [address] [id number] [address] [place] [address], [place] [address] Jun, [facility] [address] [id number] [address] [place] [address], [place] [address] Jun, [facility] [address] [id number] [address] [place] [address], [place] [address] Jun, [facility] [address] [id number] [address] [place] [address], [place] [address] Jun, [facility] [address] [id number] [address] [place] [address], [place] [address] 15 May, 2014 [facility] [address] [id number] [address] [place] [address], [place] [address] 15 May, 2014 [facility] [address] [id number] [address] [place] [address], [place] [address] May, 2013 [facility] [address] [id number] [address] [place] [address], [place] [address] May, 2013 [facility] [address] [id number] [address] [place] [address], [place] [address] May, [facility] [address] [id number] [address] [place] [address], [place] [address] May, 2013 [facility] [address] [id number] [address] [place] [address], [place] [address] May, 2013 [facility] [address] [id number] [address] [place] [address], [place] [address] May, [facility] [address] [id number] [address] [place] [address], [place] [address] May, [facility] [address] [id number] [address] [place] [address], [place] [address] May, [facility] [address] [id number] [address] [place] [address], [place] [address] Mar, [facility] [address] [id number] [address] [place] [address], [place] [address] Mar, [facility] [address] [id number] [address] [place] [address], [place] [address] Jan, 2013 [facility] [address] [id number] [address] [place] [address], [place] [address] Jan, 2013 [facility] [address] [id number] [address] [place] [address] Jan, [facility] [address] [id number] [address] [place] [address], [place] [address] Jan, [facility] [address] [id number] [address] [place] [address], [place] [address] Jan, [facility] [address] [id number] [address] [place] [address], [place] [address] Jan, [facility] [address] [id number] [address] [place] [address], [place] [address] November, [facility] [address] [id number] [address] [place] [address], [place] [address] November, [facility] [address] [id number] [address] [place] [address], [place] [address] November, [facility] [address] [id number] [address] [place] [address], [place] [address] November, [facility] [address] [id number] [address] [place] [address], [place] [address] Oct, [facility] [address] [id number] [address] [place] [address], [place] [address] Oct, [facility] [address] [id number] [address] [place] [address], [place] [address] Oct, [facility] [address] [id number] [address] [place] [address], [place] [address] Oct, [facility] [address] [id number] [address] [place] [address], [place] [address] Sep, [facility] [address] [id number] [address] [place] [address], [place] [address] Sep, [facility] [address] [id number] [address] [place] [address], [place] [address] Sep, [facility] [address] [id number] [address] [place] [address], [place] [address] Sep, [facility] [address] [id number] [address] [place] [address], [place] [address] Aug, [facility] [address] [id number] [address] [place] [address], [place] [address] Aug, [facility] [address] [id number] [address] [place] [address], [place] [address] Aug, [facility] [address] [id number] [address] [place] [address], [place] [address] Aug, [facility] [address] [id number] [address] [place] [address], [place] [address] Aug, [facility] [address] [id number] [address] [place] [address], [place] [address] Aug, [facility] [address] [id number] [address] [place] [address], [place] [address] Jul, [facility] [address] [id number] [address] [place] [address], [place] [address] Jul, [facility] [address] [id number] [address] [place] [address], [place] [address] Jul, [facility] [address] [id number] [address] [place] [address], [place] [address] Jul, [facility] [address] [id number] [address] [place] [address], [place] [address] Jun, [facility] [address] [id number] [address] [place] [address], [place] [address] Jun, [facility] [address] [id number] [address] [place] [address], [place] [address] Jun, [facility] [address] [id number] [address] [place] [address], [place] [address] Jun, [facility] [address] [id number] [address] [place] [address], [place] [address] Jun, [facility] [address] [id number] [address] [place] [address], [place] [address] May, [facility] [address] [id number] [address] [place] [address], [place] [address] May, [facility] [address] [id number] [address] [place] [address], [place] [address] May, [facility] [address] [id number] [address] [place] [address], [place] [address] May, [facility] [address] [id number] [address] [place] [address], [place] [address] 18 May, 2013 [facility] [address] [id number] [address] [place] [address], [place] [address] 18 May, 2013 [facility] [address] [id number] [address] [place] [address], [place] [address] 14 May, 2013 [facility] [address] [id number] [address] [place] [address], [place] [address] 12 May, 2013 [facility] [address] [id number] [address] [place] [address], [place] [address] 11 May, 2013 [facility] [address] [id number] [address] [place] [address], [place] [address] 10 May, 2013 [facility] [address] [id number] [address] [place] [address], [place] [address] 10 May, 2013 [facility] [address] [id number] [address] [place] [address], [place] [address] 27 Apr, 2013 [facility] [address] [id number] [address] [place] [address], [place] [address] 19 Apr, 2013 [facility] [address] [id number] [address] [place] [address], [place] [address] 18 Jan, 2013 [facility] [address] [id number] [address] [place] [address], [place] [address] 16 Jan, 2013 [facility] [address] [id number] [address] [place] [address], [place] [address] Dec, [facility] [address] [id number] [address] [place] [address], [place] [address] Dec, [facility] [address] [id number] [address] [place] [address], [place] [address] November, [facility] [address] [id number] [address] [place] [address], [place] [address] November, [facility] [address] [id number] [address] [place] [address], [place] [address] November, [facility] [address] [id number] [address] [place] [address], [place] [address] November, [facility] [address] [id number] [address] [place] [address], [place] [address] 24 Oct, 2012 [facility] [address] [id number] [address] [place] [address], [place] [address] 14 Sep, 2012 [facility] [address] [id number] [address] [place] [address], [place] [address] Sep, [facility] [address] [id number] [address] [place] [address], [place] [address] 15 Sep, 2012 [facility] [address] [id number] [address] [place] [address], [place] [address] 14 Sep, 2012 [facility] [address] [id number] [address] [place] [address], [place] [address] 08 Sep, 2012 [facility] [address] [id number] [address] [place] [address], [place] [address] 04 Sep, 2012 [facility] [address] [id number] [address] [place] [address], [place] [address] 30 Aug, 2012 [facility] [address] [id number] [address] [place] [address], [place] [address] Aug, [facility] [address] [id number] [address] [place] [address], [place] [address] Jul, [facility] [address] [id number] [address] [place] [address], [place] [address] Jul, [facility] [address] [id number] [address] [place] [address], [place] [address] Jun, [facility] [address] [id number] [address] [place] [address], [place] [address] 15 Jun, 2012 [facility] [address] [id number] [address] [place] [address], [place] [address] 15 Jun, 2012 [facility] [address] [id number] [address] [place] [address], [place] [address] May, [facility] [address] [id number] [address] [place] [address] May, [facility] [address] [id number] [address] [place] [address] May, [facility] [address] [id number] [address] [place] [address] May, [facility] [address] [id number] [address] [place] [id number] Apr, [facility] [address] [id number] [address] [place] [phone] Apr, [facility] [address] [id number] [address] [place] [phone] Sep, [facility] [address] [id number] [address] [place] [id number] Mar, [facility] [address] [id number] [address] [place] [id number] Jan, [facility] [address] [id number] [address] [place] [id number] Oct, [facility] [address] [id number] [address] [place] [phone] May, IMMUNIZATIONS No Known Immunizations SOCIAL HISTORY Never Assessed REASON FOR VISIT PLAN OF CARE VITAL SIGNS MEDICATIONS Unknown Medications RESULTS No Results PROCEDURES No Known procedures INSTRUCTIONS MEDICATIONS ADMINISTERED No Known Medications MEDICAL (GENERAL) HISTORY Type Description Date Medical History asthma Medical History kidney stones Medical History HSV 1 [employer] Surgical History thumb broken age 11 Surgical History kidney stone removed 03/18/2016 Hospitalization History kidney stones/ dehydration/ UTI Dece mber 2013 Hospitalization History ER visit for knee injury March 2018
--- OUTSIDE RECORDS SUMMARY | 2020-01-11 23:05 | XMS REPORT ---
Author Author Cedric Reyes Organization [facility] Address [address] [place] [address] Care Team Providers Care Sales Training Coordinator Name Role Phone NORM Reyes Unavailable PROBLEMS Type Condition ICD9-CM Code ZWY83-CI Code Onset Dates Condition S tatus SNOMED Code Problem Other chronic pain G89.29 Active 8 8264769 Problem Seasonal allergies J30.2 Active 4 67604642 Problem Asthma, exercise induced J45.990 Activ e 89960231 Problem Recurrent kidney stones N20.0 Active [id number] ALLERGIES No Information ENCOUNTERS Encounter Location Date Diagnosis [facility] [address] [address] May, [facility] [address] [address] Apr, Sprain of left knee, unspeci fied ligament, initial encounter S83.92XA [facility] [address] [place] [place] [id number] [place] [address] Mar, [facility] [address] [address] Mar, [facility] [address] [address] Mar, Injury of left knee, initial encounter S89.92XA and Acute pain of left knee M25.562 [facility] [address] [id number] [place] [address] Dec, Seasonal allergies J30.2 ; C ough R05 and Gagging episode R19.8 [facility] [address] [address] November, Sore throat J02.9 ; Otalgia, bilateral H92.03 and Allergic rhinitis, unspecified seasonality, unspecified trigger J30.9 [place] [address] [id number] [place] [address] Oct, [place] [address] [place] [id number] [address] [place] [address] Jun, Encounter for Depo-Provera c ontraception Z30.42 [place] [address] [id number] [place] [address] Mar, Encounter for Depo-Provera c ontraception Z30.42 [place] [address] [place] [place] [id number] [place] [address] Jan, test negative Z32. 02 [place] [address] [address] Dec, Surveillance for contr ol, oral contraceptives Z30.41 and Encounter for Depo-Provera contraception Z30.42 [place] [address] [place] [id number] [place] [address] November, Well woman exam without gyne cological exam Z00.00 [place] [address] [place] [id number] [address] [place] [address] Sep, Pharyngitis due to other org anism J02.8 [place] [address] [place] [address] Aug, [place] [address] [place] [address] Aug, [place] [address] [place] [id number] [place] [address] Aug, Vaginal candidiasis B37.3 [place] [address] [place] [address] Aug, Vaginal candidiasis B37.3 [place] [address] [place] [address] [place] [address] 14 Apr, 2016 Visit for TB skin test Z11.1 [place] [address] [address] 31 Mar, 2016 Visit for TB skin test Z11.1 and Screening for tuberculosis Z11.1 [place] [address] [address] Mar, Routine health maintenance Z 00.00 and Recurrent kidney stones N20.0 [place] [address] [place] [id number] [place] [address] Mar, Ingrown right greater toenai l L60.0 and Acute non-recurrent frontal sinusitis J01.10 [place] [address] [address] Mar, Ingrowing right great toenai l L60.0 and Recurrent kidney stones N20.0 [place] [address] [place] [id number] [place] [address] Dec, Well woman exam without gyne cological exam Z00.00 and Encounter for surveillance of contraceptive pills Z30.41 [place] [address] [place] [id number] [place] [address] Oct, Surveillance for contr ol, oral contraceptives Z30.41 and Sore throat J02.9 [place] [id number] [place] [address] Sep, Renal calculi N20.0 [place] [address] [place] [id number] [place] [address] Aug, Surveillance of contraceptiv e injection Z30.42 ; Encounter for Depo-Provera contraception Z30.42 and Encounter for counseling regarding contraception Z30.9 [place] [address] [place] [id number] [address] [place] [address] Aug, Asthma, exercise induced J45 .990 [place] [address] [place] [id number] [place] [address] May, [facility] [address] [id number] [place] [id number] Mar, Sports physical V70.3 ; Exer cise counseling V65.41 ; Dietary counseling V65.3 and Asthma 493.90 [facility] [address] [id number] [address] [place] [address] Mar, Encounter for contraceptive management V25.9 [facility] [address] [id number] [address] [place] [address] Jan, Routine child health exam V2 0.2 ; GARDASIL (HPV) DX V04.89 ; MENINGOCOCCAL DX V03.89 ; Dietary counseling and surveillance V65.3 ; Exercise counseling V65.41 and Recurrent nephrolithiasis 592.0 [facility] [address] [facility] [id number] [address] [place] [address] Jan, Kidney stone 592.0 [facility] [address] [facility] [id number] [address] [place] [address] Jan, Herpes simplex without menti on of complication 054.9 [facility] [address] [facility] [id number] [address] [place] [address] Dec, [facility] [address] [facility] [id number] [address] [place] [address] November, Encounter for contraceptive management V25.9 [facility] [address] [id number] [address] [place] [address] Oct, [facility] [address] [id number] [address] [place] [address] Oct, [facility] [address] [facility] [id number] [address] [place] [address] Sep, [facility] [address] [facility] [id number] [address] [place] [address] Sep, [facility] [address] [id number] [address] [place] [address], [place] [address] 10 Sep, 2014 [facility] [address] [id number] [address] [place] [address], [place] [address] 10 Sep, 2014 [facility] [address] [id number] [address] [place] [address], [place] [address] Aug, [facility] [address] [id number] [address] [place] [address], [place] [address] Aug, [facility] [address] [id number] [address] [place] [address], [place] [address] Aug, [facility] [address] [id number] [address] [place] [address], [place] [address] Aug, [facility] [address] [id number] [address] [place] [address], [place] [address] Jul, [facility] [address] [id number] [address] [place] [address], [place] [address] Jul, [facility] [address] [id number] [address] [place] [address], [place] [address] Jul, [facility] [address] [id number] [address] [place] [address], [place] [address] Jul, [facility] [address] [id number] [address] [place] [address], [place] [address] Jul, [facility] [address] [id number] [address] [place] [address], [place] [address] Jul, [facility] [address] [id number] [address] [place] [address], [place] [address] Jul, [facility] [address] [id number] [address] [place] [address], [place] [address] Jul, [facility] [address] [id number] [address] [place] [address], [place] [address] Jul, [facility] [address] [id number] [address] [place] [address], [place] [address] Jun, [facility] [address] [id number] [address] [place] [address], [place] [address] Jun, [facility] [address] [id number] [address] [place] [address], [place] [address] Jun, [facility] [address] [id number] [address] [place] [address], [place] [address] Jun, [facility] [address] [id number] [address] [place] [address], [place] [address] Jun, [facility] [address] [id number] [address] [place] [address], [place] [address] Jun, [facility] [address] [id number] [address] [place] [address], [place] [address] Jun, [facility] [address] [id number] [address] [place] [address], [place] [address] Jun, [facility] [address] [id number] [address] [place] [address], [place] [address] Jun, [facility] [address] [id number] [address] [place] [address], [place] [address] Jun, [facility] [address] [id number] [address] [place] [address], [place] [address] Jun, [facility] [address] [id number] [address] [place] [address], [place] [address] Jun, [facility] [address] [id number] [address] [place] [address], [place] [address] Jun, [facility] [address] [id number] [address] [place] [address], [place] [address] Jun, [facility] [address] [id number] [address] [place] [address], [place] [address] May, [facility] [address] [id number] [address] [place] [address], [place] [address] May, [facility] [address] [id number] [address] [place] [address] May, [facility] [address] [id number] [address] [place] [address], [place] [address] May, [facility] [address] [id number] [address] [place] [address], [place] [address] May, [facility] [address] [id number] [address] [place] [address], [place] [address] May, 2013 [facility] [address] [id number] [address] [place] [address], [place] [address] May, [facility] [address] [id number] [address] [place] [address], [place] [address] May, [facility] [address] [id number] [address] [place] [address], [place] [address] May, [facility] [address] [id number] [address] [place] [address], [place] [address] May, [facility] [address] [id number] [address] [place] [address], [place] [address] Mar, [facility] [address] [id number] [address] [place] [address], [place] [address] Mar, [facility] [address] [id number] [address] [place] [address], [place] [address] Jan, [facility] [address] [id number] [address] [place] [address], [place] [address] Jan, 2013 [facility] [address] [id number] [address] [place] [address] Jan, [facility] [address] [id number] [address] [place] [address], [place] [address] Jan, 2013 [facility] [address] [id number] [address] [place] [address], [place] [address] Jan, [facility] [address] [id number] [address] [place] [address], [place] [address] Jan, 2013 [facility] [address] [id number] [address] [place] [address], [place] [address] November, [facility] [address] [id number] [address] [place] [address], [place] [address] November, [facility] [address] [id number] [address] [place] [address], [place] [address] November, [facility] [address] [id number] [address] [place] [address], [place] [address] November, [facility] [address] [id number] [address] [place] [address], [place] [address] Oct, [facility] [address] [id number] [address] [place] [address], [place] [address] Oct, [facility] [address] [id number] [address] [place] [address], [place] [address] Oct, [facility] [address] [id number] [address] [place] [address], [place] [address] Oct, [facility] [address] [id number] [address] [place] [address], [place] [address] Sep, [facility] [address] [id number] [address] [place] [address], [place] [address] Sep, [facility] [address] [id number] [address] [place] [address], [place] [address] Sep, [facility] [address] [id number] [address] [place] [address], [place] [address] Sep, [facility] [address] [id number] [address] [place] [address], [place] [address] Aug, [facility] [address] [id number] [address] [place] [address], [place] [address] Aug, [facility] [address] [id number] [address] [place] [address], [place] [address] Aug, [facility] [address] [id number] [address] [place] [address], [place] [address] Aug, [facility] [address] [id number] [address] [place] [address], [place] [address] Aug, [facility] [address] [id number] [address] [place] [address], [place] [address] Aug, [facility] [address] [id number] [address] [place] [address], [place] [address] Jul, [facility] [address] [id number] [address] [place] [address], [place] [address] Jul, [facility] [address] [id number] [address] [place] [address], [place] [address] Jul, [facility] [address] [id number] [address] [place] [address], [place] [address] Jul, [facility] [address] [id number] [address] [place] [address], [place] [address] Jun, [facility] [address] [id number] [address] [place] [address], [place] [address] Jun, [facility] [address] [id number] [address] [place] [address], [place] [address] Jun, [facility] [address] [id number] [address] [place] [address], [place] [address] Jun, [facility] [address] [id number] [address] [place] [address], [place] [address] Jun, [facility] [address] [id number] [address] [place] [address], [place] [address] May, [facility] [address] [id number] [address] [place] [address], [place] [address] May, [facility] [address] [id number] [address] [place] [address], [place] [address] May, [facility] [address] [id number] [address] [place] [address], [place] [address] May, [facility] [address] [id number] [address] [place] [address] [place] [address] 18 May, 2013 [facility] [address] [id number] [address] [place] [address], [place] [address] 18 May, 2013 [facility] [address] [id number] [address] [place] [address], [place] [address] 14 May, 2013 [facility] [address] [id number] [address] [place] [address], [place] [address] 12 May, 2013 [facility] [address] [id number] [address] [place] [address], [place] [address] 11 May, 2013 [facility] [address] [id number] [address] [place] [address], [place] [address] 10 May, 2013 [facility] [address] [id number] [address] [place] [address], [place] [address] 10 May, 2013 [facility] [address] [id number] [address] [place] [address], [place] [address] 27 Apr, 2013 [facility] [address] [id number] [address] [place] [address], [place] [address] 19 Apr, 2013 [facility] [address] [id number] [address] [place] [address], [place] [address] 18 Jan, 2013 [facility] [address] [id number] [address] [place] [address], [place] [address] 16 Jan, 2013 [facility] [address] [id number] [address] [place] [address], [place] [address] 14 Dec, 2012 [facility] [address] [id number] [address] [place] [address], [place] [address] Dec, [facility] [address] [id number] [address] [place] [address], [place] [address] November, [facility] [address] [id number] [address] [place] [address], [place] [address] November, [facility] [address] [id number] [address] [place] [address], [place] [address] November, [facility] [address] [id number] [address] [place] [address], [place] [address] November, [facility] [address] [id number] [address] [place] [address], [place] [address] 24 Oct, 2012 [facility] [address] [id number] [address] [place] [address], [place] [address] 14 Sep, 2012 [facility] [address] [id number] [address] [place] [address], [place] [address] Sep, [facility] [address] [id number] [address] [place] [address], [place] [address] 15 Sep, 2012 [facility] [address] [id number] [address] [place] [address], [place] [address] 14 Sep, 2012 [facility] [address] [id number] [address] [place] [address], [place] [address] 08 Sep, 2012 [facility] [address] [id number] [address] [place] [address], [place] [address] 04 Sep, 2012 [facility] [address] [id number] [address] [place] [address], [place] [address] Aug, [facility] [address] [id number] [address] [place] [address], [place] [address] Aug, [facility] [address] [id number] [address] [place] [address], [place] [address] Jul, [facility] [address] [id number] [address] [place] [address], [place] [address] Jul, [facility] [address] [id number] [address] [place] [address], [place] [address] Jun, [facility] [address] [id number] [address] [place] [address], [place] [address] Jun, [facility] [address] [id number] [address] [place] [address], [place] [address] 15 Jun, 2012 [facility] [address] [id number] [address] [place] [address] May, [facility] [address] [id number] [address] [place] [phone] May, [facility] [address] [id number] [address] [place] [phone] May, [facility] [address] [id number] [address] [place] [phone] May, [facility] [address] [id number] [address] [place] [phone] Apr, [facility] [address] [id number] [address] [place] [phone] Apr, [facility] [address] [id number] [address] [place] [phone] Sep, [facility] [address] [id number] [address] [place] [phone] Mar, [facility] [address] [id number] [address] [place] [phone] Jan, [facility] [address] [id number] [address] [place] [phone] Oct, [facility] [address] [id number] [address] [place] [phone] May, IMMUNIZATIONS No Known Immunizations SOCIAL HISTORY Never Assessed REASON FOR VISIT PLAN OF CARE VITAL SIGNS MEDICATIONS Unknown Medications RESULTS No Results PROCEDURES No Known procedures INSTRUCTIONS MEDICATIONS ADMINISTERED No Known Medications MEDICAL (GENERAL) HISTORY Type Description Date Medical History asthma Medical History kidney stones Medical History HSV 1 [employer] Surgical History thumb broken age 11 Surgical History kidney stone removed 03/18/2016 Hospitalization History kidney stones/ dehydration/ UTI Dece mber 2014 Hospitalization History ER visit for knee injury March 2018
--- OUTSIDE RECORDS SUMMARY | 2020-01-11 23:05 | XMS REPORT ---
Author Author Cedric Reyes Organization [facility] Address [address] [place] [address] Care Team Providers Care Donation Worker Name Role Phone NORM Reyes Unavailable PROBLEMS Type Condition ICD9-CM Code [id number] Code Onset Dates Condition S tatus SNOMED Code Problem Other chronic pain G89.29 Active 8 6631494 Problem Seasonal allergies J30.2 Active 4 10809081 Problem Asthma, exercise induced J45.990 Activ e 86472619 Problem Recurrent kidney stones N20.0 Active 24317947 ALLERGIES No Information ENCOUNTERS Encounter Location Date Diagnosis [facility] [address] [address] May, [facility] [address] [address] Apr, Sprain of left knee, unspeci fied ligament, initial encounter S83.92XA [facility] [address] [place] [id number] [place] [address] Mar, [facility] [address] [address] Mar, [facility] [address] [address] Mar, Injury of left knee, initial encounter S89.92XA and Acute pain of left knee M25.562 [facility] [address] [place] [place] [id number] [place] [address] Dec, Seasonal allergies J30.2 ; C ough R05 and Gagging episode R19.8 [facility] [address] [address] November, Sore throat J02.9 ; Otalgia, bilateral H92.03 and Allergic rhinitis, unspecified seasonality, unspecified trigger J30.9 [place] [address] [place] [id number] [place] [address] Oct, [place] [address] [place] [id number] [address] [place] [address] Jun, Encounter for Depo-Provera c ontraception Z30.42 [place] [address] [place] [id number] [place] [address] Mar, Encounter for Depo-Provera c ontraception Z30.42 [place] [address] [place] [id number] [place] [address] Jan, test negative Z32. 02 [place] [address] [address] Dec, Surveillance for contr ol, oral contraceptives Z30.41 and Encounter for Depo-Provera contraception Z30.42 [place] [address] [place] [id number] [place] [address] November, Well woman exam without gyne cological exam Z00.00 [place] [address] [place] [id number] [address] [place] [address] Sep, Pharyngitis due to other org anism J02.8 [place] [address] [place] [address] Aug, [place] [address] [place] [address] Aug, [place] [address] [place] [id number] [place] [address] Aug, Vaginal candidiasis B37.3 [place] [address] [place] [address] Aug, Vaginal candidiasis B37.3 [place] [address] [place] [address] [place] [address] 14 Apr, 2016 Visit for TB skin test Z11.1 [place] [address] [address] 31 Mar, 2016 Visit for TB skin test Z11.1 and Screening for tuberculosis Z11.1 [place] [address] [address] Mar, Routine health maintenance Z 00.00 and Recurrent kidney stones N20.0 [place] [address] [place] [id number] [place] [phone] Mar, Ingrown right greater toenai l L60.0 and Acute non-recurrent frontal sinusitis J01.10 [place] [address] [address] Mar, Ingrowing right great toenai l L60.0 and Recurrent kidney stones N20.0 [place] [address] [place] [id number] [place] [address] Dec, Well woman exam without gyne cological exam Z00.00 and Encounter for surveillance of contraceptive pills Z30.41 [place] [address] [place] [id number] [place] [address] Oct, Surveillance for contr ol, oral contraceptives Z30.41 and Sore throat J02.9 [place] [id number] [place] [address] Sep, Renal calculi N20.0 [place] [address] [place] [id number] [place] [address] Aug, Surveillance of contraceptiv e injection Z30.42 ; Encounter for Depo-Provera contraception Z30.42 and Encounter for counseling regarding contraception Z30.9 [place] [address] [place] [id number] [address] [place] [address] Aug, Asthma, exercise induced J45 .990 [place] [address] [place] [id number] [place] [address] May, [facility] [address] [id number] [place] [id number] Mar, Sports physical V70.3 ; Exer cise counseling V65.41 ; Dietary counseling V65.3 and Asthma 493.90 [facility] [address] [id number] [address] [place] [address] Mar, Encounter for contraceptive management V25.9 [facility] [address] [id number] [address] [place] [address] Jan, Routine child health exam V2 0.2 ; GARDASIL (HPV) DX V04.89 ; MENINGOCOCCAL DX V03.89 ; Dietary counseling and surveillance V65.3 ; Exercise counseling V65.41 and Recurrent nephrolithiasis 592.0 [facility] [address] [facility] [id number] [address] [place] [address] Jan, Kidney stone 592.0 [facility] [address] [facility] [id number] [address] [place] [address] Jan, Herpes simplex without menti on of complication 054.9 [facility] [address] [facility] [id number] [address] [place] [address] Dec, [facility] [address] [facility] [id number] [address] [place] [address] November, Encounter for contraceptive management V25.9 [facility] [address] [id number] [address] [place] [id number] Oct, [facility] [address] [id number] [address] [place] [address] Oct, [facility] [address] [facility] [id number] [address] [place] [id number] Sep, [facility] [address] [facility] [id number] [address] [place] [phone] Sep, [facility] [address] [id number] [address] [place] [address], [place] [address] 10 Sep, 2014 [facility] [address] [id number] [address] [place] [address], [place] [address] 10 Sep, 2014 [facility] [address] [id number] [address] [place] [address], [place] [address] Aug, [facility] [address] [id number] [address] [place] [address], [place] [address] Aug, [facility] [address] [id number] [address] [place] [address], [place] [address] Aug, [facility] [address] [id number] [address] [place] [address], [place] [address] Aug, [facility] [address] [id number] [address] [place] [address], [place] [address] Jul, [facility] [address] [id number] [address] [place] [address], [place] [address] Jul, [facility] [address] [id number] [address] [place] [address], [place] [address] Jul, [facility] [address] [id number] [address] [place] [address], [place] [address] Jul, [facility] [address] [id number] [address] [place] [address], [place] [address] Jul, [facility] [address] [id number] [address] [place] [address], [place] [address] Jul, [facility] [address] [id number] [address] [place] [address], [place] [address] Jul, [facility] [address] [id number] [address] [place] [address], [place] [address] Jul, [facility] [address] [id number] [address] [place] [address], [place] [address] Jul, [facility] [address] [id number] [address] [place] [address], [place] [address] Jun, [facility] [address] [id number] [address] [place] [address], [place] [address] Jun, [facility] [address] [id number] [address] [place] [address], [place] [address] Jun, [facility] [address] [id number] [address] [place] [address], [place] [address] Jun, [facility] [address] [id number] [address] [place] [address], [place] [address] Jun, [facility] [address] [id number] [address] [place] [address], [place] [address] Jun, [facility] [address] [id number] [address] [place] [address], [place] [address] Jun, [facility] [address] [id number] [address] [place] [address], [place] [address] Jun, [facility] [address] [id number] [address] [place] [address], [place] [address] Jun, [facility] [address] [id number] [address] [place] [address], [place] [address] Jun, [facility] [address] [id number] [address] [place] [address], [place] [address] Jun, [facility] [address] [id number] [address] [place] [address], [place] [address] Jun, [facility] [address] [id number] [address] [place] [address], [place] [address] Jun, [facility] [address] [id number] [address] [place] [address], [place] [address] Jun, [facility] [address] [id number] [address] [place] [address], [place] [address] May, [facility] [address] [id number] [address] [place] [address], [place] [address] May, [facility] [address] [id number] [address] [place] [id number] May, [facility] [address] [id number] [address] [place] [address], [place] [address] May, [facility] [address] [id number] [address] [place] [address], [place] [address] May, [facility] [address] [id number] [address] [place] [address], [place] [address] May, 2013 [facility] [address] [id number] [address] [place] [address], [place] [address] May, [facility] [address] [id number] [address] [place] [address], [place] [address] May, [facility] [address] [id number] [address] [place] [address], [place] [address] May, [facility] [address] [id number] [address] [place] [address], [place] [address] May, [facility] [address] [id number] [address] [place] [address], [place] [address] Mar, [facility] [address] [id number] [address] [place] [address], [place] [address] Mar, [facility] [address] [id number] [address] [place] [address], [place] [address] Jan, [facility] [address] [id number] [address] [place] [address], [place] [address] Jan, 2013 [facility] [address] [id number] [address] [place] [id number] Jan, [facility] [address] [id number] [address] [place] [address], [place] [address] Jan, 2013 [facility] [address] [id number] [address] [place] [address], [place] [address] Jan, [facility] [address] [id number] [address] [place] [address], [place] [address] Jan, 2013 [facility] [address] [id number] [address] [place] [address], [place] [address] November, [facility] [address] [id number] [address] [place] [address], [place] [address] November, [facility] [address] [id number] [address] [place] [address], [place] [address] November, [facility] [address] [id number] [address] [place] [address], [place] [address] November, [facility] [address] [id number] [address] [place] [address], [place] [address] Oct, [facility] [address] [id number] [address] [place] [address], [place] [address] Oct, [facility] [address] [id number] [address] [place] [address], [place] [address] Oct, [facility] [address] [id number] [address] [place] [address], [place] [address] Oct, [facility] [address] [id number] [address] [place] [address], [place] [address] Sep, [facility] [address] [id number] [address] [place] [address], [place] [address] Sep, [facility] [address] [id number] [address] [place] [address], [place] [address] Sep, [facility] [address] [id number] [address] [place] [address], [place] [address] Sep, [facility] [address] [id number] [address] [place] [address], [place] [address] Aug, [facility] [address] [id number] [address] [place] [address], [place] [address] Aug, [facility] [address] [id number] [address] [place] [address], [place] [address] Aug, [facility] [address] [id number] [address] [place] [address], [place] [address] Aug, [facility] [address] [id number] [address] [place] [address], [place] [address] Aug, [facility] [address] [id number] [address] [place] [address], [place] [address] Aug, [facility] [address] [id number] [address] [place] [address], [place] [address] Jul, [facility] [address] [id number] [address] [place] [address], [place] [address] Jul, [facility] [address] [id number] [address] [place] [address], [place] [address] Jul, [facility] [address] [id number] [address] [place] [address], [place] [address] Jul, [facility] [address] [id number] [address] [place] [address], [place] [address] Jun, [facility] [address] [id number] [address] [place] [address], [place] [address] Jun, [facility] [address] [id number] [address] [place] [address], [place] [address] Jun, [facility] [address] [id number] [address] [place] [address], [place] [address] Jun, [facility] [address] [id number] [address] [place] [address], [place] [address] Jun, [facility] [address] [id number] [address] [place] [address], [place] [address] May, [facility] [address] [id number] [address] [place] [address], [place] [address] May, [facility] [address] [id number] [address] [place] [address], [place] [address] May, [facility] [address] [id number] [address] [place] [address], [place] [address] May, [facility] [address] [id number] [address] [place] [address] [place] [address] 18 May, 2013 [facility] [address] [id number] [address] [place] [address], [place] [address] 18 May, 2013 [facility] [address] [id number] [address] [place] [address], [place] [address] 14 May, 2013 [facility] [address] [id number] [address] [place] [address], [place] [address] 12 May, 2013 [facility] [address] [id number] [address] [place] [address], [place] [address] 11 May, 2013 [facility] [address] [id number] [address] [place] [address], [place] [address] 10 May, 2013 [facility] [address] [id number] [address] [place] [address], [place] [address] 10 May, 2013 [facility] [address] [id number] [address] [place] [address], [place] [address] 27 Apr, 2013 [facility] [address] [id number] [address] [place] [address], [place] [address] 19 Apr, 2013 [facility] [address] [id number] [address] [place] [address], [place] [address] 18 Jan, 2013 [facility] [address] [id number] [address] [place] [address], [place] [address] 16 Jan, 2013 [facility] [address] [id number] [address] [place] [address], [place] [address] 14 Dec, 2012 [facility] [address] [id number] [address] [place] [address], [place] [address] Dec, [facility] [address] [id number] [address] [place] [address], [place] [address] November, [facility] [address] [id number] [address] [place] [address], [place] [address] November, [facility] [address] [id number] [address] [place] [address], [place] [address] November, [facility] [address] [id number] [address] [place] [address], [place] [address] November, [facility] [address] [id number] [address] [place] [address], [place] [address] 24 Oct, 2012 [facility] [address] [id number] [address] [place] [address], [place] [address] 14 Sep, 2012 [facility] [address] [id number] [address] [place] [address], [place] [address] Sep, [facility] [address] [id number] [address] [place] [address], [place] [address] 15 Sep, 2012 [facility] [address] [id number] [address] [place] [address], [place] [address] 14 Sep, 2012 [facility] [address] [id number] [address] [place] [address], [place] [address] 08 Sep, 2012 [facility] [address] [id number] [address] [place] [address], [place] [address] 04 Sep, 2012 [facility] [address] [id number] [address] [place] [address], [place] [address] Aug, [facility] [address] [id number] [address] [place] [address], [place] [address] Aug, [facility] [address] [id number] [address] [place] [address], [place] [address] Jul, [facility] [address] [id number] [address] [place] [address], [place] [address] Jul, [facility] [address] [id number] [address] [place] [address], [place] [address] Jun, [facility] [address] [id number] [address] [place] [address], [place] [address] Jun, [facility] [address] [id number] [address] [place] [address], [place] [address] 15 Jun, 2012 [facility] [address] [id number] [address] [place] [address] May, [facility] [address] [id number] [address] [place] [address] May, [facility] [address] [id number] [address] [place] [address] May, [facility] [address] [id number] [address] [place] [phone] May, [facility] [address] [id number] [address] [place] [phone] Apr, [facility] [address] [id number] [address] [place] [phone] Apr, [facility] [address] [id number] [address] [place] [phone] Sep, [facility] [address] [id number] [address] [place] [phone] Mar, [facility] [address] [id number] [address] [place] [phone] Jan, [facility] [address] [id number] [address] [place] [phone] Oct, [facility] [address] [id number] [address] [place] [phone] May, IMMUNIZATIONS No Known Immunizations SOCIAL HISTORY Never Assessed REASON FOR VISIT PLAN OF CARE VITAL SIGNS MEDICATIONS Unknown Medications RESULTS No Results PROCEDURES No Known procedures INSTRUCTIONS MEDICATIONS ADMINISTERED No Known Medications MEDICAL (GENERAL) HISTORY Type Description Date Medical History asthma Medical History kidney stones Medical History HSV 1 [employer] Surgical History thumb broken age 11 Surgical History kidney stone removed 03/18/2016 Hospitalization History kidney stones/ dehydration/ UTI Dece mber 2014 Hospitalization History ER visit for knee injury March 2018
--- OUTSIDE RECORDS SUMMARY | 2020-01-11 23:05 | XMS REPORT ---
Author Author Cedric Reyes Organization [facility] Address [address] [place] [address] Care Team Providers Care Rn Ent Name Role Phone NORM Reyes Unavailable PROBLEMS Type Condition ICD9-CM Code JJY12-UG Code Onset Dates Condition S tatus SNOMED Code Problem Other chronic pain G89.29 Active 8 7032678 Problem Seasonal allergies J30.2 Active 4 40726769 Problem Asthma, exercise induced J45.990 Activ e 77293587 Problem Recurrent kidney stones N20.0 Active [id number] ALLERGIES No Information ENCOUNTERS Encounter Location Date Diagnosis [facility] [address] [address] May, [facility] [address] [address] Apr, Sprain of left knee, unspeci fied ligament, initial encounter S83.92XA [facility] [address] [place] [id number] [place] [address] Mar, [facility] [address] [address] Mar, [facility] [address] [address] Mar, Injury of left knee, initial encounter S89.92XA and Acute pain of left knee M25.562 [facility] [id number] [place] [address] Dec, Seasonal allergies J30.2 ; C ough R05 and Gagging episode R19.8 [facility] [address] [address] November, Sore throat J02.9 ; Otalgia, bilateral H92.03 and Allergic rhinitis, unspecified seasonality, unspecified trigger J30.9 [place] [address] [place] [id number] [place] [address] Oct, [place] [address] [place] [id number] [address] [place] [address] Jun, Encounter for Depo-Provera c ontraception Z30.42 [place] [address] [place] [id number] [place] [address] Mar, Encounter for Depo-Provera c ontraception Z30.42 [place] [address] [place] [id number] [place] [address] Jan, test negative Z32. 02 [place] [address] [address] Dec, Surveillance for contr ol, oral contraceptives Z30.41 and Encounter for Depo-Provera contraception Z30.42 [place] [address] [place] [id number] [place] [address] November, Well woman exam without gyne cological exam Z00.00 [place] [address] [place] [id number] [address] [place] [address] Sep, Pharyngitis due to other org anism J02.8 [place] [id number] [place] [address] Aug, [place] [address] [place] [address] Aug, [place] [address] [place] [id number] [place] [address] Aug, Vaginal candidiasis B37.3 [place] [address] [place] [address] Aug, Vaginal candidiasis B37.3 [place] [address] [place] [id number] [place] [address] 14 Apr, 2016 Visit for TB skin test Z11.1 [place] [address] [address] 31 Mar, 2016 Visit for TB skin test Z11.1 and Screening for tuberculosis Z11.1 [place] [address] [address] Mar, Routine health maintenance Z 00.00 and Recurrent kidney stones N20.0 [place] [address] [place] [id number] [place] [address] Mar, Ingrown right greater toenai l L60.0 and Acute non-recurrent frontal sinusitis J01.10 [place] [address] [address] Mar, Ingrowing right great toenai l L60.0 and Recurrent kidney stones N20.0 [place] [address] [place] [id number] [place] [address] Dec, Well woman exam without gyne cological exam Z00.00 and Encounter for surveillance of contraceptive pills Z30.41 [place] [address] [place] [id number] [place] [address] Oct, Surveillance for contr ol, oral contraceptives Z30.41 and Sore throat J02.9 [place] [id number] [place] [address] Sep, Renal calculi N20.0 [place] [address] [place] [id number] [place] [address] Aug, Surveillance of contraceptiv e injection Z30.42 ; Encounter for Depo-Provera contraception Z30.42 and Encounter for counseling regarding contraception Z30.9 [place] [address] [place] [id number] [address] [place] [address] Aug, Asthma, exercise induced J45 .990 [place] [address] [place] [id number] [place] [address] May, [facility] [address] [id number] [place] [id number] Mar, Sports physical V70.3 ; Exer cise counseling V65.41 ; Dietary counseling V65.3 and Asthma 493.90 [facility] [address] [id number] [address] [place] [address] Mar, Encounter for contraceptive management V25.9 [facility] [address] [id number] [address] [place] [address] Jan, Routine child health exam V2 0.2 ; GARDASIL (HPV) DX V04.89 ; MENINGOCOCCAL DX V03.89 ; Dietary counseling and surveillance V65.3 ; Exercise counseling V65.41 and Recurrent nephrolithiasis 592.0 [facility] [address] [facility] [id number] [address] [place] [address] Jan, Kidney stone 592.0 [facility] [address] [facility] [id number] [address] [place] [address] Jan, Herpes simplex without menti on of complication 054.9 [facility] [address] [facility] [id number] [address] [place] [address] Dec, [facility] [address] [facility] [id number] [address] [place] [address] November, Encounter for contraceptive management V25.9 [facility] [address] [id number] [address] [place] [address] Oct, [facility] [address] [id number] [address] [place] [address] Oct, [facility] [address] [facility] [id number] [address] [place] [address] Sep, [facility] [address] [facility] [id number] [address] [place] [address] Sep, [facility] [address] [id number] [address] [place] [address], [place] [address] 10 Sep, 2014 [facility] [address] [id number] [address] [place] [address], [place] [address] 10 Sep, 2014 [facility] [address] [id number] [address] [place] [address], [place] [address] Aug, [facility] [address] [id number] [address] [place] [address], [place] [address] Aug, [facility] [address] [id number] [address] [place] [address], [place] [address] Aug, [facility] [address] [id number] [address] [place] [address], [place] [address] Aug, [facility] [address] [id number] [address] [place] [address], [place] [address] Jul, [facility] [address] [id number] [address] [place] [address], [place] [address] Jul, [facility] [address] [id number] [address] [place] [address], [place] [address] Jul, [facility] [address] [id number] [address] [place] [address], [place] [address] Jul, [facility] [address] [id number] [address] [place] [address], [place] [address] Jul, [facility] [address] [id number] [address] [place] [address], [place] [address] Jul, [facility] [address] [id number] [address] [place] [address], [place] [address] Jul, [facility] [address] [id number] [address] [place] [address], [place] [address] Jul, [facility] [address] [id number] [address] [place] [address], [place] [address] Jul, [facility] [address] [id number] [address] [place] [address], [place] [address] Jun, [facility] [address] [id number] [address] [place] [address], [place] [address] Jun, [facility] [address] [id number] [address] [place] [address], [place] [address] Jun, [facility] [address] [id number] [address] [place] [address], [place] [address] Jun, [facility] [address] [id number] [address] [place] [address], [place] [address] Jun, [facility] [address] [id number] [address] [place] [address], [place] [address] Jun, [facility] [address] [id number] [address] [place] [address], [place] [address] Jun, [facility] [address] [id number] [address] [place] [address], [place] [address] Jun, [facility] [address] [id number] [address] [place] [address], [place] [address] Jun, [facility] [address] [id number] [address] [place] [address], [place] [address] Jun, [facility] [address] [id number] [address] [place] [address], [place] [address] Jun, [facility] [address] [id number] [address] [place] [address], [place] [address] Jun, [facility] [address] [id number] [address] [place] [address], [place] [address] Jun, [facility] [address] [id number] [address] [place] [address], [place] [address] Jun, [facility] [address] [id number] [address] [place] [address], [place] [address] May, [facility] [address] [id number] [address] [place] [address], [place] [address] May, [facility] [address] [id number] [address] [place] [address] May, [facility] [address] [id number] [address] [place] [address], [place] [address] May, [facility] [address] [id number] [address] [place] [address], [place] [address] May, [facility] [address] [id number] [address] [place] [address], [place] [address] May, 2013 [facility] [address] [id number] [address] [place] [address], [place] [address] May, [facility] [address] [id number] [address] [place] [address], [place] [address] May, [facility] [address] [id number] [address] [place] [address], [place] [address] May, [facility] [address] [id number] [address] [place] [address], [place] [address] May, [facility] [address] [id number] [address] [place] [address], [place] [address] Mar, [facility] [address] [id number] [address] [place] [address], [place] [address] Mar, [facility] [address] [id number] [address] [place] [address], [place] [address] Jan, [facility] [address] [id number] [address] [place] [address], [place] [address] Jan, 2013 [facility] [address] [id number] [address] [place] [address] Jan, [facility] [address] [id number] [address] [place] [address], [place] [address] Jan, 2013 [facility] [address] [id number] [address] [place] [address], [place] [address] Jan, [facility] [address] [id number] [address] [place] [address], [place] [address] Jan, 2013 [facility] [address] [id number] [address] [place] [address], [place] [address] November, [facility] [address] [id number] [address] [place] [address], [place] [address] November, [facility] [address] [id number] [address] [place] [address], [place] [address] November, [facility] [address] [id number] [address] [place] [address], [place] [address] November, [facility] [address] [id number] [address] [place] [address], [place] [address] Oct, [facility] [address] [id number] [address] [place] [address], [place] [address] Oct, [facility] [address] [id number] [address] [place] [address], [place] [address] Oct, [facility] [address] [id number] [address] [place] [address], [place] [address] Oct, [facility] [address] [id number] [address] [place] [address], [place] [address] Sep, [facility] [address] [id number] [address] [place] [address], [place] [address] Sep, [facility] [address] [id number] [address] [place] [address], [place] [address] Sep, [facility] [address] [id number] [address] [place] [address], [place] [address] Sep, [facility] [address] [id number] [address] [place] [address], [place] [address] Aug, [facility] [address] [id number] [address] [place] [address], [place] [address] Aug, [facility] [address] [id number] [address] [place] [address], [place] [address] Aug, [facility] [address] [id number] [address] [place] [address], [place] [address] Aug, [facility] [address] [id number] [address] [place] [address], [place] [address] Aug, [facility] [address] [id number] [address] [place] [address], [place] [address] Aug, [facility] [address] [id number] [address] [place] [address], [place] [address] Jul, [facility] [address] [id number] [address] [place] [address], [place] [address] Jul, [facility] [address] [id number] [address] [place] [address], [place] [address] Jul, [facility] [address] [id number] [address] [place] [address], [place] [address] Jul, [facility] [address] [id number] [address] [place] [address], [place] [address] Jun, [facility] [address] [id number] [address] [place] [address], [place] [address] Jun, [facility] [address] [id number] [address] [place] [address], [place] [address] Jun, [facility] [address] [id number] [address] [place] [address], [place] [address] Jun, [facility] [address] [id number] [address] [place] [address], [place] [address] Jun, [facility] [address] [id number] [address] [place] [address], [place] [address] May, [facility] [address] [id number] [address] [place] [address], [place] [address] May, [facility] [address] [id number] [address] [place] [address], [place] [address] May, [facility] [address] [id number] [address] [place] [address], [place] [address] May, [facility] [address] [id number] [address] [place] [address] [place] [address] 18 May, 2013 [facility] [address] [id number] [address] [place] [address], [place] [address] 18 May, 2013 [facility] [address] [id number] [address] [place] [address], [place] [address] 14 May, 2013 [facility] [address] [id number] [address] [place] [address], [place] [address] 12 May, 2013 [facility] [address] [id number] [address] [place] [address], [place] [address] 11 May, 2013 [facility] [address] [id number] [address] [place] [address], [place] [address] 10 May, 2013 [facility] [address] [id number] [address] [place] [address], [place] [address] 10 May, 2013 [facility] [address] [id number] [address] [place] [address], [place] [address] 27 Apr, 2013 [facility] [address] [id number] [address] [place] [address], [place] [address] 19 Apr, 2013 [facility] [address] [id number] [address] [place] [address], [place] [address] 18 Jan, 2013 [facility] [address] [id number] [address] [place] [address], [place] [address] 16 Jan, 2013 [facility] [address] [id number] [address] [place] [address], [place] [address] 14 Dec, 2012 [facility] [address] [id number] [address] [place] [address], [place] [address] Dec, [facility] [address] [id number] [address] [place] [address], [place] [address] November, [facility] [address] [id number] [address] [place] [address], [place] [address] November, [facility] [address] [id number] [address] [place] [address], [place] [address] November, [facility] [address] [id number] [address] [place] [address], [place] [address] November, [facility] [address] [id number] [address] [place] [address], [place] [address] 24 Oct, 2012 [facility] [address] [id number] [address] [place] [address], [place] [address] 14 Sep, 2012 [facility] [address] [id number] [address] [place] [address], [place] [address] Sep, [facility] [address] [id number] [address] [place] [address], [place] [address] 15 Sep, 2012 [facility] [address] [id number] [address] [place] [address], [place] [address] 14 Sep, 2012 [facility] [address] [id number] [address] [place] [address], [place] [address] 08 Sep, 2012 [facility] [address] [id number] [address] [place] [address], [place] [address] 04 Sep, 2012 [facility] [address] [id number] [address] [place] [address], [place] [address] Aug, [facility] [address] [id number] [address] [place] [address], [place] [address] Aug, [facility] [address] [id number] [address] [place] [address], [place] [address] Jul, [facility] [address] [id number] [address] [place] [address], [place] [address] Jul, [facility] [address] [id number] [address] [place] [address], [place] [address] Jun, [facility] [address] [id number] [address] [place] [address], [place] [address] Jun, [facility] [address] [id number] [address] [place] [address], [place] [address] 15 Jun, 2012 [facility] [address] [id number] [address] [place] [address] May, [facility] [address] [id number] [address] [place] [address] May, [facility] [address] [id number] [address] [place] [address] May, [facility] [address] [id number] [address] [place] [address] May, [facility] [address] [id number] [address] [place] [address] Apr, [facility] [address] [id number] [address] [place] [address] Apr, [facility] [address] [id number] [address] [place] [address] Sep, [facility] [address] [id number] [address] [place] [address] Mar, [facility] [address] [id number] [address] [place] [address] Jan, [facility] [address] [id number] [address] [place] [address] Oct, [facility] [address] [id number] [address] [place] [address] May, IMMUNIZATIONS No Known Immunizations SOCIAL HISTORY Never Assessed REASON FOR VISIT PLAN OF CARE VITAL SIGNS Height 62 in 2014-06-26 Weight 150.8 lbs 2014-06-26 Temperature 97 degrees Fahrenheit 2014-06-26 Heart Rate 89 bpm 2014-06-26 Respiratory Rate 18 2014-06-26 Blood pressure systolic 130 mmHg 2014-06-26 Blood pressure diastolic 71 mmHg 2014-06-26 MEDICATIONS Unknown Medications RESULTS No Results PROCEDURES No Known procedures INSTRUCTIONS MEDICATIONS ADMINISTERED No Known Medications MEDICAL (GENERAL) HISTORY Type Description Date Medical History asthma Medical History kidney stones Medical History HSV 1 [employer] Surgical History thumb broken age 11 Surgical History kidney stone removed 03/18/2016 Hospitalization History kidney stones/ dehydration/ UTI Dece mber 2013 Hospitalization History ER visit for knee injury March 2018
--- OUTSIDE RECORDS SUMMARY | 2020-01-11 23:05 | XMS REPORT ---
Author Author Cedric MCPHERSON Organization [facility] Address [address] [place] [address] Care Team Providers Care Resin Maker Name Role Phone RONDA MCPHERSON Unavailable PROBLEMS Type Condition ICD9-CM Code LLN40-HT Code Onset Dates Condition S tatus SNOMED Code Problem Other chronic pain G89.29 Active 8 9372955 Problem Seasonal allergies J30.2 Active 4 14582507 Problem Asthma, exercise induced J45.990 Activ e 48316400 Problem Recurrent kidney stones N20.0 Active [id number] ALLERGIES No Information ENCOUNTERS Encounter Location Date Diagnosis [facility] [address] [address] May, [facility] [address] [address] Apr, Sprain of left knee, unspeci fied ligament, initial encounter S83.92XA [place] [address] [place] [id number] [address] [place] [address] Mar, [facility] [address] [address] Mar, [facility] [address] [address] Mar, Injury of left knee, initial encounter S89.92XA and Acute pain of left knee M25.562 [facility] [address] [address] Dec, Seasonal allergies J30.2 ; C ough R05 and Gagging episode R19.8 [facility] [address] [place] [id number] [address] [place] [id number] 16 May, 2018 Sore throat J02.9 ; Otalgia, bilateral H92.03 and Allergic rhinitis, unspecified seasonality, unspecified trigger J30.9 [place] [address] [facility] [id number] [address] [place] [phone] Oct, [place] [address] [facility] [id number] [address] [place] [address] Jun, Encounter for Depo-Provera c ontraception Z30.42 [place] [address] [facility] [id number] [address] [place] [address] Mar, Encounter for Depo-Provera c ontraception Z30.42 [place] [address] [place] [id number] [address] [place] [address] Jan, test negative Z32. 02 [place] [address] [place] [id number] [address] [place] [phone] Dec, Surveillance for contr ol, oral contraceptives Z30.41 and Encounter for Depo-Provera contraception Z30.42 [place] [address] [place] [id number] [address] [place] [phone] November, Well woman exam without gyne cological exam Z00.00 [place] [address] [place] [id number] [address] [place] [phone] Sep, Pharyngitis due to other org anism J02.8 [place] [address] [facility] [id number] [address] [place] [phone] Aug, [place] [address] [facility] [id number] [address] [place] [id number] Aug, [place] [address] [place] [id number] [address] [place] [phone] Aug, Vaginal candidiasis B37.3 [place] [address] [place] [id number] [address] [place] [phone] Aug, Vaginal candidiasis B37.3 [place] [address] [place] [id number] [address] [place] [address] 14 Apr, 2016 Visit for TB skin test Z11.1 [place] [address] [address] Mar, Visit for TB skin test Z11.1 and Screening for tuberculosis Z11.1 [place] [address] [address] Mar, Routine health maintenance Z 00.00 and Recurrent kidney stones N20.0 [place] [address] [address] Mar, Ingrown right greater toenai l L60.0 and Acute non-recurrent frontal sinusitis J01.10 [place] [address] [address] Mar, Ingrowing right great toenai l L60.0 and Recurrent kidney stones N20.0 [place] [address] [address] Dec, Well woman exam without gyne cological exam Z00.00 and Encounter for surveillance of contraceptive pills Z30.[address] [address] Oct, Surveillance for contr ol, oral contraceptives Z30.41 and Sore throat J02.9 [place] [address] [place] [id number] [address] [place] [phone] Sep, Renal calculi N20.0 [place] [address] [place] [id number] [address] [place] [address] Aug, Surveillance of contraceptiv e injection Z30.42 ; Encounter for Depo-Provera contraception Z30.42 and Encounter for counseling regarding contraception Z30.9 [place] [address] [place] [id number] [address] [place] [address] Aug, Asthma, exercise induced J45 .990 [place] [address] [place] [id number] [address] [place] [address] May, [facility] [address] [id number] [place] [id number] Mar, Sports physical V70.3 ; Exer cise counseling V65.41 ; Dietary counseling V65.3 and Asthma 493.90 [facility] [address] [facility] [id number] [address] [place] [address] Mar, Encounter for contraceptive management V25.9 [facility] [address] [id number] [address] [place] [phone] Jan, Routine child health exam V2 0.2 ; GARDASIL (HPV) DX V04.89 ; MENINGOCOCCAL DX V03.89 ; Dietary counseling and surveillance V65.3 ; Exercise counseling V65.41 and Recurrent nephrolithiasis 592.0 [facility] [address] [facility] [id number] [address] [place] [phone] Jan, Kidney stone 592.0 [facility] [address] [facility] [id number] [address] [place] [phone] Jan, Herpes simplex without menti on of complication 054.9 [facility] [address] [facility] [id number] [address] [place] [id number] Dec, [facility] [address] [facility] [id number] [address] [place] [phone] November, Encounter for contraceptive management V25.9 [facility] [address] [id number] [address] [place] [phone] Oct, [facility] [address] [id number] [address] [place] [phone] Oct, [facility] [address] [facility] [id number] [address] [place] [phone] Sep, [facility] [address] [facility] [id number] [address] [place] [phone] Sep, [facility] [address] [facility] [id number] [address] [place] [phone] Sep, [facility] [address] [id number] [address] [place] [address], [place] [address] Sep, [facility] [address] [id number] [address] [place] [address], [place] [address] Aug, [facility] [address] [id number] [address] [place] [address], [place] [address] Aug, [facility] [address] [id number] [address] [place] [address], [place] [address] Aug, [facility] [address] [id number] [address] [place] [address], [place] [address] Aug, [facility] [address] [id number] [address] [place] [address], [place] [address] Jul, [facility] [address] [id number] [address] [place] [address], [place] [address] Jul, [facility] [address] [id number] [address] [place] [address], [place] [address] Jul, [facility] [address] [id number] [address] [place] [address], [place] [address] Jul, [facility] [address] [id number] [address] [place] [address], [place] [address] Jul, [facility] [address] [id number] [address] [place] [address], [place] [address] Jul, [facility] [address] [id number] [address] [place] [address], [place] [address] Jul, [facility] [address] [id number] [address] [place] [address], [place] [address] Jul, [facility] [address] [id number] [address] [place] [address], [place] [address] Jul, [facility] [address] [id number] [address] [place] [address], [place] [address] Jun, [facility] [address] [id number] [address] [place] [address], [place] [address] Jun, [facility] [address] [id number] [address] [place] [address], [place] [address] Jun, [facility] [address] [id number] [address] [place] [address], [place] [address] Jun, [facility] [address] [id number] [address] [place] [address], [place] [address] Jun, [facility] [address] [id number] [address] [place] [address], [place] [address] Jun, [facility] [address] [id number] [address] [place] [address], [place] [address] Jun, [facility] [address] [id number] [address] [place] [address], [place] [address] Jun, [facility] [address] [id number] [address] [place] [address], [place] [address] Jun, [facility] [address] [id number] [address] [place] [address], [place] [address] Jun, [facility] [address] [id number] [address] [place] [address], [place] [address] Jun, [facility] [address] [id number] [address] [place] [address], [place] [address] Jun, [facility] [address] [id number] [address] [place] [address], [place] [address] Jun, [facility] [address] [id number] [address] [place] [address], [place] [address] Jun, [facility] [address] [id number] [address] [place] [address], [place] [address] 15 May, 2014 [facility] [address] [id number] [address] [place] [address], [place] [address] 15 May, 2014 [facility] [address] [id number] [address] [place] [address], [place] [address] May, 2013 [facility] [address] [id number] [address] [place] [address], [place] [address] May, 2013 [facility] [address] [id number] [address] [place] [address], [place] [address] May, [facility] [address] [id number] [address] [place] [address], [place] [address] May, 2013 [facility] [address] [id number] [address] [place] [address], [place] [address] May, 2013 [facility] [address] [id number] [address] [place] [address], [place] [address] May, [facility] [address] [id number] [address] [place] [address], [place] [address] May, [facility] [address] [id number] [address] [place] [address], [place] [address] May, [facility] [address] [id number] [address] [place] [address], [place] [address] Mar, [facility] [address] [id number] [address] [place] [address], [place] [address] Mar, [facility] [address] [id number] [address] [place] [address], [place] [address] Jan, 2013 [facility] [address] [id number] [address] [place] [address], [place] [address] Jan, 2013 [facility] [address] [id number] [address] [place] [id number] Jan, [facility] [address] [id number] [address] [place] [address], [place] [address] Jan, [facility] [address] [id number] [address] [place] [address], [place] [address] Jan, [facility] [address] [id number] [address] [place] [address], [place] [address] Jan, [facility] [address] [id number] [address] [place] [address], [place] [address] November, [facility] [address] [id number] [address] [place] [address], [place] [address] November, [facility] [address] [id number] [address] [place] [address], [place] [address] November, [facility] [address] [id number] [address] [place] [address], [place] [address] November, [facility] [address] [id number] [address] [place] [address], [place] [address] Oct, [facility] [address] [id number] [address] [place] [address], [place] [address] Oct, [facility] [address] [id number] [address] [place] [address], [place] [address] Oct, [facility] [address] [id number] [address] [place] [address], [place] [address] Oct, [facility] [address] [id number] [address] [place] [address], [place] [address] Sep, [facility] [address] [id number] [address] [place] [address], [place] [address] Sep, [facility] [address] [id number] [address] [place] [address], [place] [address] Sep, [facility] [address] [id number] [address] [place] [address], [place] [address] Sep, [facility] [address] [id number] [address] [place] [address], [place] [address] Aug, [facility] [address] [id number] [address] [place] [address], [place] [address] Aug, [facility] [address] [id number] [address] [place] [address], [place] [address] Aug, [facility] [address] [id number] [address] [place] [address], [place] [address] Aug, [facility] [address] [id number] [address] [place] [address], [place] [address] Aug, [facility] [address] [id number] [address] [place] [address], [place] [address] Aug, [facility] [address] [id number] [address] [place] [address], [place] [address] Jul, [facility] [address] [id number] [address] [place] [address], [place] [address] Jul, [facility] [address] [id number] [address] [place] [address], [place] [address] Jul, [facility] [address] [id number] [address] [place] [address], [place] [address] Jul, [facility] [address] [id number] [address] [place] [address], [place] [address] Jun, [facility] [address] [id number] [address] [place] [address], [place] [address] Jun, [facility] [address] [id number] [address] [place] [address], [place] [address] Jun, [facility] [address] [id number] [address] [place] [address], [place] [address] Jun, [facility] [address] [id number] [address] [place] [address], [place] [address] Jun, [facility] [address] [id number] [address] [place] [address], [place] [address] May, [facility] [address] [id number] [address] [place] [address], [place] [address] May, [facility] [address] [id number] [address] [place] [address], [place] [address] May, [facility] [address] [id number] [address] [place] [address], [place] [address] May, [facility] [address] [id number] [address] [place] [address], [place] [address] 18 May, 2013 [facility] [address] [id number] [address] [place] [address], [place] [address] 18 May, 2013 [facility] [address] [id number] [address] [place] [address], [place] [address] 14 May, 2013 [facility] [address] [id number] [address] [place] [address], [place] [address] 12 May, 2013 [facility] [address] [id number] [address] [place] [address], [place] [address] 11 May, 2013 [facility] [address] [id number] [address] [place] [address], [place] [address] 10 May, 2013 [facility] [address] [id number] [address] [place] [address], [place] [address] 10 May, 2013 [facility] [address] [id number] [address] [place] [address], [place] [address] 27 Apr, 2013 [facility] [address] [id number] [address] [place] [address], [place] [address] 19 Apr, 2013 [facility] [address] [id number] [address] [place] [address], [place] [address] 18 Jan, 2013 [facility] [address] [id number] [address] [place] [address], [place] [address] 16 Jan, 2013 [facility] [address] [id number] [address] [place] [address], [place] [address] Dec, [facility] [address] [id number] [address] [place] [address], [place] [address] Dec, [facility] [address] [id number] [address] [place] [address], [place] [address] November, [facility] [address] [id number] [address] [place] [address], [place] [address] November, [facility] [address] [id number] [address] [place] [address], [place] [address] November, [facility] [address] [id number] [address] [place] [address], [place] [address] November, [facility] [address] [id number] [address] [place] [address], [place] [address] 24 Oct, 2012 [facility] [address] [id number] [address] [place] [address], [place] [address] 14 Sep, 2012 [facility] [address] [id number] [address] [place] [address], [place] [address] Sep, [facility] [address] [id number] [address] [place] [address], [place] [address] 15 Sep, 2012 [facility] [address] [id number] [address] [place] [address], [place] [address] 14 Sep, 2012 [facility] [address] [id number] [address] [place] [address], [place] [address] 08 Sep, 2012 [facility] [address] [id number] [address] [place] [address], [place] [address] 04 Sep, 2012 [facility] [address] [id number] [address] [place] [address], [place] [address] 30 Aug, 2012 [facility] [address] [id number] [address] [place] [address], [place] [id number] Aug, [facility] [address] [id number] [address] [place] [address], [place] [address] Jul, [facility] [address] [id number] [address] [place] [address], [place] [address] Jul, [facility] [address] [id number] [address] [place] [address], [place] [address] Jun, [facility] [address] [id number] [address] [place] [address], [place] [id number] 15 Jun, 2012 [facility] [address] [id number] [address] [place] [address], [place] [phone] 15 Jun, 2012 [facility] [address] [id number] [address] [place] [address], [place] [id number] May, [facility] [address] [id number] [address] [place] [phone] May, [facility] [address] [id number] [address] [place] [id number] May, [facility] [address] [id number] [address] [place] [phone] May, [facility] [address] [id number] [address] [place] [phone] Apr, [facility] [address] [id number] [address] [place] [phone] Apr, [facility] [address] [id number] [address] [place] [id number] Sep, [facility] [address] [id number] [address] [place] [id number] Mar, [facility] [address] [id number] [address] [place] [phone] Jan, [facility] [address] [id number] [address] [place] [phone] Oct, [facility] [address] [id number] [address] [place] [id number] May, IMMUNIZATIONS No Known Immunizations SOCIAL HISTORY Never Assessed REASON FOR VISIT PLAN OF CARE VITAL SIGNS MEDICATIONS Unknown Medications RESULTS No Results PROCEDURES No Known procedures INSTRUCTIONS MEDICATIONS ADMINISTERED No Known Medications MEDICAL (GENERAL) HISTORY Type Description Date Medical History asthma Medical History kidney stones Medical History HSV 1 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
--- OUTSIDE RECORDS SUMMARY | 2020-01-11 23:05 | XMS REPORT ---
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 Role Phone RONDA MCPHERSON Unavailable PROBLEMS Type Condition ICD9-CM Code YFL80-DN Code Onset Dates Condition S tatus SNOMED Code Problem Other chronic pain G89.29 Active 8 1396063 Problem Seasonal allergies J30.2 Active 4 34013823 Problem Asthma, exercise induced J45.990 Activ e 73826251 Problem Recurrent kidney stones N20.0 Active [id number] ALLERGIES No Information ENCOUNTERS Encounter Location Date Diagnosis [facility] [address] [address] May, [facility] [address] [address] Apr, Sprain of left knee, unspeci fied ligament, initial encounter S83.92XA [place] [address] [place] [id number] [place] [address] Mar, [facility] [address] [address] Mar, [facility] [address] [address] Mar, Injury of left knee, initial encounter S89.92XA and Acute pain of left knee M25.562 [facility] [address] [address] Dec, Seasonal allergies J30.2 ; C ough R05 and Gagging episode R19.8 [facility] [address] [place] [id number] [place] [address] 16 May, 2018 Sore throat J02.9 ; Otalgia, bilateral H92.03 and Allergic rhinitis, unspecified seasonality, unspecified trigger J30.9 [place] [id number] [facility] [id number] [address] [place] [address] Oct, [place] [address] [facility] [id number] [address] [place] [address] Jun, Encounter for Depo-Provera c ontraception Z30.42 [place] [address] [facility] [id number] [address] [place] [address] Mar, Encounter for Depo-Provera c ontraception Z30.42 [place] [address] [place] [id number] [place] [address] Jan, test negative Z32. 02 [place] [address] [place] [id number] [address] [place] [address] Dec, Surveillance for contr ol, oral contraceptives Z30.41 and Encounter for Depo-Provera contraception Z30.42 [place] [address] [place] [id number] [address] [place] [address] November, Well woman exam without gyne cological exam Z00.00 [place] [address] [place] [id number] [address] [place] [address] Sep, Pharyngitis due to other org anism J02.8 [place] [address] [facility] [id number] [address] [place] [address] Aug, [place] [address] [facility] [id number] [address] [place] [address] Aug, [place] [address] [place] [id number] [place] [address] Aug, Vaginal candidiasis B37.3 [place] [address] [place] [id number] [address] [place] [address] Aug, Vaginal candidiasis B37.3 [place] [address] [place] [id number] [address] [place] [address] 14 Apr, 2016 Visit for TB skin test Z11.1 [place] [address] [address] Mar, Visit for TB skin test Z11.1 and Screening for tuberculosis Z11.1 [place] [address] [address] Mar, Routine health maintenance Z 00.00 and Recurrent kidney stones N20.0 [place] [address] [address] Mar, Ingrown right greater toenai l L60.0 and Acute non-recurrent frontal sinusitis J01.10 [place] [address] [address] Mar, Ingrowing right great toenai l L60.0 and Recurrent kidney stones N20.0 [place] [address] [address] Dec, Well woman exam without gyne cological exam Z00.00 and Encounter for surveillance of contraceptive pills Z30.[address] [address] Oct, Surveillance for contr ol, oral contraceptives Z30.41 and Sore throat J02.9 [place] [address] [place] [id number] [place] [address] Sep, Renal calculi N20.0 [place] [address] [place] [id number] [place] [address] Aug, Surveillance of contraceptiv e injection Z30.42 ; Encounter for Depo-Provera contraception Z30.42 and Encounter for counseling regarding contraception Z30.9 [place] [address] [place] [id number] [place] [address] Aug, Asthma, exercise induced J45 .990 [place] [address] [place] [id number] [place] [address] May, [facility] [address] [id number] [place] [id number] Mar, Sports physical V70.3 ; Exer cise counseling V65.41 ; Dietary counseling V65.3 and Asthma 493.90 [facility] [address] [facility] [id number] [address] [place] [address] Mar, Encounter for contraceptive management V25.9 [facility] [address] [id number] [address] [place] [address] Jan, Routine child health exam V2 0.2 ; GARDASIL (HPV) DX V04.89 ; MENINGOCOCCAL DX V03.89 ; Dietary counseling and surveillance V65.3 ; Exercise counseling V65.41 and Recurrent nephrolithiasis 592.0 [facility] [address] [facility] [id number] [address] [place] [address] Jan, Kidney stone 592.0 [facility] [address] [facility] [id number] [address] [place] [address] Jan, Herpes simplex without menti on of complication 054.9 [facility] [address] [facility] [id number] [address] [place] [address] Dec, [facility] [address] [facility] [id number] [address] [place] [address] November, Encounter for contraceptive management V25.9 [facility] [address] [id number] [address] [place] [address] Oct, [facility] [address] [id number] [address] [place] [address] Oct, [facility] [address] [facility] [id number] [address] [place] [address] Sep, [facility] [address] [facility] [id number] [address] [place] [address] Sep, [facility] [address] [facility] [id number] [address] [place] [address] Sep, [facility] [address] [id number] [address] [place] [address], [place] [address] Sep, [facility] [address] [id number] [address] [place] [address], [place] [address] Aug, [facility] [address] [id number] [address] [place] [address], [place] [address] Aug, [facility] [address] [id number] [address] [place] [address], [place] [address] Aug, [facility] [address] [id number] [address] [place] [address], [place] [address] Aug, [facility] [address] [id number] [address] [place] [address], [place] [address] Jul, [facility] [address] [id number] [address] [place] [address], [place] [address] Jul, [facility] [address] [id number] [address] [place] [address], [place] [address] Jul, [facility] [address] [id number] [address] [place] [address], [place] [address] Jul, [facility] [address] [id number] [address] [place] [address], [place] [address] Jul, [facility] [address] [id number] [address] [place] [address], [place] [address] Jul, [facility] [address] [id number] [address] [place] [address], [place] [address] Jul, [facility] [address] [id number] [address] [place] [address], [place] [address] Jul, [facility] [address] [id number] [address] [place] [address], [place] [address] Jul, [facility] [address] [id number] [address] [place] [address], [place] [address] Jun, [facility] [address] [id number] [address] [place] [address], [place] [address] Jun, [facility] [address] [id number] [address] [place] [address], [place] [address] Jun, [facility] [address] [id number] [address] [place] [address], [place] [address] Jun, [facility] [address] [id number] [address] [place] [address], [place] [address] Jun, [facility] [address] [id number] [address] [place] [address], [place] [address] Jun, [facility] [address] [id number] [address] [place] [address], [place] [address] Jun, [facility] [address] [id number] [address] [place] [address], [place] [address] Jun, [facility] [address] [id number] [address] [place] [address], [place] [address] Jun, [facility] [address] [id number] [address] [place] [address], [place] [address] Jun, [facility] [address] [id number] [address] [place] [address], [place] [address] Jun, [facility] [address] [id number] [address] [place] [address], [place] [address] Jun, [facility] [address] [id number] [address] [place] [address], [place] [address] Jun, [facility] [address] [id number] [address] [place] [address], [place] [address] Jun, [facility] [address] [id number] [address] [place] [address], [place] [address] 15 May, 2014 [facility] [address] [id number] [address] [place] [address], [place] [address] 15 May, 2014 [facility] [address] [id number] [address] [place] [address], [place] [address] May, 2013 [facility] [address] [id number] [address] [place] [address], [place] [address] May, 2013 [facility] [address] [id number] [address] [place] [address], [place] [address] May, [facility] [address] [id number] [address] [place] [address], [place] [address] May, 2013 [facility] [address] [id number] [address] [place] [address], [place] [address] May, 2013 [facility] [address] [id number] [address] [place] [address], [place] [address] May, [facility] [address] [id number] [address] [place] [address], [place] [address] May, [facility] [address] [id number] [address] [place] [address], [place] [address] May, [facility] [address] [id number] [address] [place] [address], [place] [address] Mar, [facility] [address] [id number] [address] [place] [address], [place] [address] Mar, [facility] [address] [id number] [address] [place] [address], [place] [address] Jan, 2013 [facility] [address] [id number] [address] [place] [address], [place] [address] Jan, 2013 [facility] [address] [id number] [address] [place] [address] Jan, [facility] [address] [id number] [address] [place] [address], [place] [address] Jan, [facility] [address] [id number] [address] [place] [address], [place] [address] Jan, [facility] [address] [id number] [address] [place] [address], [place] [address] Jan, [facility] [address] [id number] [address] [place] [address], [place] [address] November, [facility] [address] [id number] [address] [place] [address], [place] [address] November, [facility] [address] [id number] [address] [place] [address], [place] [address] November, [facility] [address] [id number] [address] [place] [address], [place] [address] November, [facility] [address] [id number] [address] [place] [address], [place] [address] Oct, [facility] [address] [id number] [address] [place] [address], [place] [address] Oct, [facility] [address] [id number] [address] [place] [address], [place] [address] Oct, [facility] [address] [id number] [address] [place] [address], [place] [address] Oct, [facility] [address] [id number] [address] [place] [address], [place] [address] Sep, [facility] [address] [id number] [address] [place] [address], [place] [address] Sep, [facility] [address] [id number] [address] [place] [address], [place] [address] Sep, [facility] [address] [id number] [address] [place] [address], [place] [address] Sep, [facility] [address] [id number] [address] [place] [address], [place] [address] Aug, [facility] [address] [id number] [address] [place] [address], [place] [address] Aug, [facility] [address] [id number] [address] [place] [address], [place] [address] Aug, [facility] [address] [id number] [address] [place] [address], [place] [address] Aug, [facility] [address] [id number] [address] [place] [address], [place] [address] Aug, [facility] [address] [id number] [address] [place] [address], [place] [address] Aug, [facility] [address] [id number] [address] [place] [address], [place] [address] Jul, [facility] [address] [id number] [address] [place] [address], [place] [address] Jul, [facility] [address] [id number] [address] [place] [address], [place] [address] Jul, [facility] [address] [id number] [address] [place] [address], [place] [address] Jul, [facility] [address] [id number] [address] [place] [address], [place] [address] Jun, [facility] [address] [id number] [address] [place] [address], [place] [address] Jun, [facility] [address] [id number] [address] [place] [address], [place] [address] Jun, [facility] [address] [id number] [address] [place] [address], [place] [address] Jun, [facility] [address] [id number] [address] [place] [address], [place] [address] Jun, [facility] [address] [id number] [address] [place] [address], [place] [address] May, [facility] [address] [id number] [address] [place] [address], [place] [address] May, [facility] [address] [id number] [address] [place] [address], [place] [address] May, [facility] [address] [id number] [address] [place] [address], [place] [address] May, [facility] [address] [id number] [address] [place] [address], [place] [address] 18 May, 2013 [facility] [address] [id number] [address] [place] [address], [place] [address] 18 May, 2013 [facility] [address] [id number] [address] [place] [address], [place] [address] 14 May, 2013 [facility] [address] [id number] [address] [place] [address], [place] [address] 12 May, 2013 [facility] [address] [id number] [address] [place] [address], [place] [address] 11 May, 2013 [facility] [address] [id number] [address] [place] [address], [place] [address] 10 May, 2013 [facility] [address] [id number] [address] [place] [address], [place] [address] 10 May, 2013 [facility] [address] [id number] [address] [place] [address], [place] [address] 27 Apr, 2013 [facility] [address] [id number] [address] [place] [address], [place] [address] 19 Apr, 2013 [facility] [address] [id number] [address] [place] [address], [place] [address] 18 Jan, 2013 [facility] [address] [id number] [address] [place] [address], [place] [address] 16 Jan, 2013 [facility] [address] [id number] [address] [place] [address], [place] [address] Dec, [facility] [address] [id number] [address] [place] [address], [place] [address] Dec, [facility] [address] [id number] [address] [place] [address], [place] [address] November, [facility] [address] [id number] [address] [place] [address], [place] [address] November, [facility] [address] [id number] [address] [place] [address], [place] [address] November, [facility] [address] [id number] [address] [place] [address], [place] [address] November, [facility] [address] [id number] [address] [place] [address], [place] [address] 24 Oct, 2012 [facility] [address] [id number] [address] [place] [address], [place] [address] 14 Sep, 2012 [facility] [address] [id number] [address] [place] [address], [place] [address] Sep, [facility] [address] [id number] [address] [place] [address], [place] [address] 15 Sep, 2012 [facility] [address] [id number] [address] [place] [address], [place] [address] 14 Sep, 2012 [facility] [address] [id number] [address] [place] [address], [place] [address] 08 Sep, 2012 [facility] [address] [id number] [address] [place] [address], [place] [address] 04 Sep, 2012 [facility] [address] [id number] [address] [place] [address], [place] [address] 30 Aug, 2012 [facility] [address] [id number] [address] [place] [address], [place] [address] Aug, [facility] [address] [id number] [address] [place] [address], [place] [address] Jul, [facility] [address] [id number] [address] [place] [address], [place] [address] Jul, [facility] [address] [id number] [address] [place] [address], [place] [address] Jun, [facility] [address] [id number] [address] [place] [address], [place] [address] 15 Jun, 2012 [facility] [address] [id number] [address] [place] [address], [place] [address] 15 Jun, 2012 [facility] [address] [id number] [address] [place] [address], [place] [address] May, [facility] [address] [id number] [address] [place] [address] May, [facility] [address] [id number] [address] [place] [address] May, [facility] [address] [id number] [address] [place] [address] May, [facility] [address] [id number] [address] [place] [address] 27 Apr, 2012 [facility] [address] [id number] [address] [place] [address] Apr, [facility] [address] [id number] [address] [place] [address] Sep, [facility] [address] [id number] [address] [place] [id number] Mar, [facility] [address] [id number] [address] [place] [id number] Jan, [facility] [address] [id number] [address] [place] [id number] Oct, [facility] [address] [id number] [address] [place] [phone] May, IMMUNIZATIONS No Known Immunizations SOCIAL HISTORY Never Assessed REASON FOR VISIT PLAN OF CARE VITAL SIGNS Height 62 in 2014-07-17 Weight 149 lbs 2014-07-17 Temperature 97.9 degrees Fahrenheit 2014-07-17 Heart Rate 94 bpm 2014-07-17 Respiratory Rate 20 2014-07-17 Blood pressure systolic 133 mmHg 2014-07-17 Blood pressure diastolic 80 mmHg 2014-07-17 MEDICATIONS Unknown Medications RESULTS No Results PROCEDURES No Known procedures INSTRUCTIONS MEDICATIONS ADMINISTERED No Known Medications MEDICAL (GENERAL) HISTORY Type Description Date Medical History asthma Medical History kidney stones Medical History HSV 1 [employer] Surgical History thumb broken age 11 Surgical History kidney stone removed 03/18/2016 Hospitalization History kidney stones/ dehydration/ UTI Dece mber 2013 Hospitalization History ER visit for knee injury March 2018
--- OUTSIDE RECORDS SUMMARY | 2020-01-11 23:06 | XMS REPORT ---
Author Author Cedric Lamb Organization [facility] Address [address] [place] [address] Care Team Providers Care Music Rehabilitation Therapist Name Role Phone PALOMA Lamb Unavailable PROBLEMS Type Condition ICD9-CM Code NPN18-VD Code Onset Dates Condition S tatus SNOMED Code Problem Other chronic pain G89.29 Active 8 1463923 Problem Seasonal allergies J30.2 Active 4 53840431 Problem Asthma, exercise induced J45.990 Activ e 61836807 Problem Recurrent kidney stones N20.0 Active [id number] ALLERGIES No Information ENCOUNTERS Encounter Location Date Diagnosis [facility] [address] [address] May, [facility] [address] [address] Apr, Sprain of left knee, unspeci fied ligament, initial encounter S83.92XA [facility] [address] [address] Mar, [facility] [address] [address] Mar, [facility] [address] [address] Mar, Injury of left knee, initial encounter S89.92XA and Acute pain of left knee M25.562 [facility] [address] [address] Dec, Seasonal allergies J30.2 ; C ough R05 and Gagging episode R19.8 [facility] [address] [address] November, Sore throat J02.9 ; Otalgia, bilateral H92.03 and Allergic rhinitis, unspecified seasonality, unspecified trigger J30.9 [facility] [address] [place] [id number] [address] [place] [address] Oct, [place] [address] [facility] [id number] [address] [place] [address] Jun, Encounter for Depo-Provera c ontraception Z30.42 [place] [address] [place] [id number] [address] [place] [address] Mar, Encounter for Depo-Provera c ontraception Z30.42 [place] [address] [address] Jan, test negative Z32. 02 [place] [address] [address] Dec, Surveillance for contr ol, oral contraceptives Z30.41 and Encounter for Depo-Provera contraception Z30.42 [place] [address] [place] [id number] [address] [place] [address] November, Well woman exam without gyne cological exam Z00.00 [place] [address] [place] [id number] [address] [place] [address] Sep, Pharyngitis due to other org anism J02.8 [place] [address] [place] [id number] [address] [place] [address] Aug, [place] [address] [place] [id number] [address] [place] [address] Aug, [place] [address] [place] [id number] [address] [place] [address] Aug, Vaginal candidiasis B37.3 [place] [address] [place] [id number] [address] [place] [address] Aug, Vaginal candidiasis B37.3 [place] [address] [place] [id number] [address] [place] [address] 14 Apr, 2016 Visit for TB skin test Z11.1 [place] [address] [address] 31 Mar, 2016 Visit for TB skin test Z11.1 and Screening for tuberculosis Z11.1 [place] [address] [address] 16 Mar, 2016 Routine health maintenance Z 00.00 and Recurrent kidney stones N20.0 [place] [address] [address] Mar, Ingrown right greater toenai l L60.0 and Acute non-recurrent frontal sinusitis J01.10 [place] [address] [address] Mar, Ingrowing right great toenai l L60.0 and Recurrent kidney stones N20.0 [place] [address] [address] Dec, Well woman exam without gyne cological exam Z00.00 and Encounter for surveillance of contraceptive pills Z30.41 [place] [address] [address] Oct, Surveillance for contr ol, oral contraceptives Z30.41 and Sore throat J02.9 [place] [address] [place] [id number] [address] [place] [address] Sep, Renal calculi N20.0 [place] [address] [place] [id number] [address] [place] [address] Aug, Surveillance of contraceptiv e injection Z30.42 ; Encounter for Depo-Provera contraception Z30.42 and Encounter for counseling regarding contraception Z30.9 [place] [id number] [place] [address] Aug, Asthma, exercise induced J45 .990 [place] [address] [place] [id number] [address] [place] [address] May, [facility] [address] [id number] [place] [id number] Mar, Sports physical V70.3 ; Exer cise counseling V65.41 ; Dietary counseling V65.3 and Asthma 493.90 [facility] [address] [facility] [id number] [address] [place] [address] Mar, Encounter for contraceptive management V25.9 [facility] [address] [id number] [address] [place] [address] Jan, Routine child health exam V2 0.2 ; GARDASIL (HPV) DX V04.89 ; MENINGOCOCCAL DX V03.89 ; Dietary counseling and surveillance V65.3 ; Exercise counseling V65.41 and Recurrent nephrolithiasis 592.0 [facility] [address] [facility] [id number] [address] [place] [address] Jan, Kidney stone 592.0 [facility] [address] [facility] [id number] [address] [place] [address] Jan, Herpes simplex without menti on of complication 054.9 [facility] [address] [facility] [id number] [address] [place] [address] Dec, [facility] [address] [facility] [id number] [address] [place] [address] November, Encounter for contraceptive management V25.9 [facility] [address] [facility] [id number] [address] [place] [address] Oct, [facility] [address] [facility] [id number] [address] [place] [address] Oct, [facility] [address] [facility] [id number] [address] [place] [address] Sep, [facility] [address] [facility] [id number] [address] [place] [address] Sep, [facility] [address] [facility] [id number] [address] [place] [address] 10 Sep, 2014 [facility] [address] [id number] [address] [place] [address], [place] [address] Sep, [facility] [address] [id number] [address] [place] [address], [place] [address] Aug, [facility] [address] [id number] [address] [place] [address], [place] [address] Aug, [facility] [address] [id number] [address] [place] [address], [place] [address] Aug, [facility] [address] [id number] [address] [place] [address], [place] [address] Aug, [facility] [address] [id number] [address] [place] [address], [place] [address] Jul, [facility] [address] [id number] [address] [place] [address], [place] [address] Jul, [facility] [address] [id number] [address] [place] [address], [place] [address] Jul, [facility] [address] [id number] [address] [place] [address], [place] [address] Jul, [facility] [address] [id number] [address] [place] [address], [place] [address] Jul, [facility] [address] [id number] [address] [place] [address], [place] [address] Jul, [facility] [address] [id number] [address] [place] [address], [place] [address] Jul, [facility] [address] [id number] [address] [place] [address], [place] [address] Jul, [facility] [address] [id number] [address] [place] [address], [place] [address] Jul, [facility] [address] [id number] [address] [place] [address], [place] [address] Jun, [facility] [address] [id number] [address] [place] [address], [place] [address] Jun, [facility] [address] [id number] [address] [place] [address], [place] [address] Jun, [facility] [address] [id number] [address] [place] [address], [place] [address] Jun, [facility] [address] [id number] [address] [place] [address], [place] [address] Jun, [facility] [address] [id number] [address] [place] [address], [place] [address] Jun, [facility] [address] [id number] [address] [place] [address], [place] [address] Jun, [facility] [address] [id number] [address] [place] [address], [place] [address] Jun, [facility] [address] [id number] [address] [place] [address], [place] [address] Jun, [facility] [address] [id number] [address] [place] [address], [place] [address] Jun, [facility] [address] [id number] [address] [place] [address], [place] [address] Jun, [facility] [address] [id number] [address] [place] [address], [place] [address] Jun, [facility] [address] [id number] [address] [place] [address], [place] [address] Jun, [facility] [address] [id number] [address] [place] [address], [place] [address] Jun, [facility] [address] [id number] [address] [place] [address], [place] [address] 15 May, 2014 [facility] [address] [id number] [address] [place] [address], [place] [address] 15 May, 2014 [facility] [address] [id number] [address] [place] [address], [place] [address] May, 2013 [facility] [address] [id number] [address] [place] [address], [place] [address] May, 2013 [facility] [address] [id number] [address] [place] [address], [place] [address] May, [facility] [address] [id number] [address] [place] [address], [place] [address] May, 2013 [facility] [address] [id number] [address] [place] [address], [place] [address] May, 2013 [facility] [address] [id number] [address] [place] [address], [place] [address] May, [facility] [address] [id number] [address] [place] [address], [place] [address] May, [facility] [address] [id number] [address] [place] [address], [place] [address] May, [facility] [address] [id number] [address] [place] [address], [place] [address] Mar, [facility] [address] [id number] [address] [place] [address], [place] [address] Mar, [facility] [address] [id number] [address] [place] [address], [place] [address] Jan, [facility] [address] [id number] [address] [place] [address], [place] [address] Jan, 2013 [facility] [address] [id number] [address] [place] [address] Jan, [facility] [address] [id number] [address] [place] [address], [place] [address] Jan, [facility] [address] [id number] [address] [place] [address], [place] [address] Jan, [facility] [address] [id number] [address] [place] [address], [place] [address] Jan, [facility] [address] [id number] [address] [place] [address], [place] [address] November, [facility] [address] [id number] [address] [place] [address], [place] [address] November, [facility] [address] [id number] [address] [place] [address], [place] [address] November, [facility] [address] [id number] [address] [place] [address], [place] [address] November, [facility] [address] [id number] [address] [place] [address], [place] [address] Oct, [facility] [address] [id number] [address] [place] [address], [place] [address] Oct, [facility] [address] [id number] [address] [place] [address], [place] [address] Oct, [facility] [address] [id number] [address] [place] [address], [place] [address] Oct, [facility] [address] [id number] [address] [place] [address], [place] [address] Sep, [facility] [address] [id number] [address] [place] [address], [place] [address] Sep, [facility] [address] [id number] [address] [place] [address], [place] [address] Sep, [facility] [address] [id number] [address] [place] [address], [place] [address] Sep, [facility] [address] [id number] [address] [place] [address], [place] [address] Aug, [facility] [address] [id number] [address] [place] [address], [place] [address] Aug, [facility] [address] [id number] [address] [place] [address], [place] [address] Aug, [facility] [address] [id number] [address] [place] [address], [place] [address] Aug, [facility] [address] [id number] [address] [place] [address], [place] [address] Aug, [facility] [address] [id number] [address] [place] [address], [place] [address] Aug, [facility] [address] [id number] [address] [place] [address], [place] [address] Jul, [facility] [address] [id number] [address] [place] [address], [place] [address] Jul, [facility] [address] [id number] [address] [place] [address], [place] [address] Jul, [facility] [address] [id number] [address] [place] [address], [place] [address] Jul, [facility] [address] [id number] [address] [place] [address], [place] [address] Jun, [facility] [address] [id number] [address] [place] [address], [place] [address] Jun, [facility] [address] [id number] [address] [place] [address], [place] [address] Jun, [facility] [address] [id number] [address] [place] [address], [place] [address] Jun, [facility] [address] [id number] [address] [place] [address], [place] [address] Jun, [facility] [address] [id number] [address] [place] [address], [place] [address] May, [facility] [address] [id number] [address] [place] [address], [place] [address] May, [facility] [address] [id number] [address] [place] [address], [place] [address] May, [facility] [address] [id number] [address] [place] [address], [place] [address] May, [facility] [address] [id number] [address] [place] [address] 18 May, 2013 [facility] [address] [id number] [address] [place] [address], [place] [address] 18 May, 2013 [facility] [address] [id number] [address] [place] [address], [place] [address] 14 May, 2013 [facility] [address] [id number] [address] [place] [address], [place] [address] 12 May, 2013 [facility] [address] [id number] [address] [place] [address], [place] [address] 11 May, 2013 [facility] [address] [id number] [address] [place] [address], [place] [address] 10 May, 2013 [facility] [address] [id number] [address] [place] [address], [place] [address] 10 May, 2013 [facility] [address] [id number] [address] [place] [address], [place] [address] 27 Apr, 2013 [facility] [address] [id number] [address] [place] [address], [place] [address] 19 Apr, 2013 [facility] [address] [id number] [address] [place] [address], [place] [address] 18 Jan, 2013 [facility] [address] [id number] [address] [place] [address], [place] [address] 16 Jan, 2013 [facility] [address] [id number] [address] [place] [address], [place] [address] Dec, [facility] [address] [id number] [address] [place] [address], [place] [address] Dec, [facility] [address] [id number] [address] [place] [address], [place] [address] November, [facility] [address] [id number] [address] [place] [address], [place] [address] November, [facility] [address] [id number] [address] [place] [address], [place] [address] November, [facility] [address] [id number] [address] [place] [address], [place] [address] November, [facility] [address] [id number] [address] [place] [address], [place] [address] 24 Oct, 2012 [facility] [address] [id number] [address] [place] [address], [place] [address] 14 Sep, 2012 [facility] [address] [id number] [address] [place] [address], [place] [address] Sep, [facility] [address] [id number] [address] [place] [address], [place] [address] 15 Sep, 2012 [facility] [address] [id number] [address] [place] [address], [place] [address] 14 Sep, 2012 [facility] [address] [id number] [address] [place] [address], [place] [address] 08 Sep, 2012 [facility] [address] [id number] [address] [place] [address], [place] [address] 04 Sep, 2012 [facility] [address] [id number] [address] [place] [address], [place] [address] 30 Aug, 2012 [facility] [address] [id number] [address] [place] [address], [place] [address] Aug, [facility] [address] [id number] [address] [place] [address], [place] [address] Jul, [facility] [address] [id number] [address] [place] [address], [place] [address] Jul, [facility] [address] [id number] [address] [place] [address], [place] [address] Jun, [facility] [address] [id number] [address] [place] [address], [place] [address] 15 Jun, 2012 [facility] [address] [id number] [address] [place] [address], [place] [address] 15 Jun, 2012 [facility] [address] [id number] [address] [place] [address], [place] [address] May, [facility] [address] [id number] [address] [place] [address] May, [facility] [address] [id number] [address] [place] [address] May, [facility] [address] [id number] [address] [place] [address] May, [facility] [address] [id number] [address] [place] [address] Apr, [facility] [address] [id number] [address] [place] [address] Apr, [facility] [address] [id number] [address] [place] [address] Sep, [facility] [address] [id number] [address] [place] [address] Mar, [facility] [address] [id number] [address] [place] [phone] Jan, [facility] [address] [id number] [address] [place] [id number] Oct, [facility] [address] [id number] [address] [place] [phone] May, IMMUNIZATIONS No Known Immunizations SOCIAL HISTORY Never Assessed REASON FOR VISIT PLAN OF CARE VITAL SIGNS Height 62 in 2014-09-13 Weight 143.39 lbs 2014-09-13 Temperature 97.8 degrees Fahrenheit 2014-09-13 Heart Rate 82 bpm 2014-09-13 Respiratory Rate 18 2014-09-13 Blood pressure systolic 122 mmHg 2014-09-13 Blood pressure diastolic 78 mmHg 2014-09-13 MEDICATIONS Unknown Medications RESULTS No Results PROCEDURES Procedure Date Ordered Result Body Site THER/PROPH/DIAG INJ, SC/IM Sep 13, 2014 Medroxyprogesterone inj Sep 13, 2014 URINE TEST Sep 13, 2014 INSTRUCTIONS MEDICATIONS ADMINISTERED No Known Medications MEDICAL (GENERAL) HISTORY Type Description Date Medical History asthma Medical History kidney stones Medical History HSV 1 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
--- OUTSIDE RECORDS SUMMARY | 2020-01-11 23:10 | XMS REPORT | Continuity of Care Document ---
Author Organization Unknown Address Unknown Phone Unavailable Allergies Active Description Code Type Severity Reaction Onset Reported/Identified Relationship to Patient Clinical Status Yes No Known Drug Allergies [id number] Drug Allergy Unknown N/A 02/04/2012 Yes tramadol [id number] Drug Allergy Unknown HIVES 07/10/2014 Yes tramadol Drug Allergy N/A N/A 11/13/2014 Yes levofloxacin [id number] Drug Allergy Severe N/A 12/08/2016 Medications There is no data. Problems Date Dx Coded Attending Type Code Diagnosis Diagnosed By 07/01/1304 BRO OWENS MD, Ot S83.92XA SPRAIN OF UNSPECIFIED SITE OF LEFT KNEE, 07/01/1304 BRO OWENS MD Ot X50.0XXA OVEREXERTION FROM STRENUOUS MOVEMENT OR 07/01/1304 RBO OWENS MD Ot Y93.01 ACTIVITY, WALKING, MARCHING AND HIKING 04/16/2008 MILTON WALSH DO 786.2 Cough 04/16/2008 RONDA MCPHERSON MD 786. 2 Cough 04/16/2008 786.2 Cough 04/16/2008 786.2 Cough 04/16/2008 786.2 Cough 04/16/2008 786.2 Cough 04/16/2008 786.2 Cough 04/16/2008 786.2 Cough 04/16/2008 786.2 Cough 04/16/2008 786.2 Cough 04/16/2008 786.2 Cough 04/16/2008 786.2 Cough 04/16/2008 CATARINA COFFEY MD 786.2 Cough 04/16/2008 MILTON WALSH DO 786.2 Cough 04/16/2008 MILTON WALSH DO 786.2 Cough 04/16/2008 RONDA MCPHERSON MD 786. 2 Cough 04/16/2008 RONDA MCPHERSON MD 786. 2 Cough 04/16/2008 SHUN ABDULLAHI APRN 786.2 Cough 04/16/2008 SHUN ABDULLAHI APRN 786.2 Cough 04/16/2008 [employer]NI [employer], PALOMA A 78 6.2 Cough 04/16/2008 [employer], PALOMA A 78 6.2 Cough 04/16/2008 RONDA MCPHERSON MD 786. 2 Cough 04/16/2008 CATARINA COFFEY MD 786.2 Cough 04/16/2008 WALSH DO, MILTON K 786.2 Cough 04/16/2008 WALSH DO, MILTON K 786.2 Cough 04/16/2008 WALSH DO MILTON K 786.2 Cough 04/16/2008 [employer], PILAR A 786.2 Cough 04/16/2008 [employer], PILAR A 786.2 Cough 04/16/2008 RONDA MCPHERSON MD 786. 2 Cough 04/16/2008 ISABELA [employer], NORM R 786.2 Cough 04/16/2008 RONDA MCPHERSON MD 786. 2 Cough 04/16/2008 ERLINDA VICENTE, CATARINA 786.2 Cough 04/16/2008 RONDA MCPHERSON MD 786. 2 Cough 04/16/2008 CATARINA COFFEY MD 786.2 Cough 04/16/2008 [employer], PALOMA A 78 6.2 Cough 04/16/2008 WALSH DO, MILTON K 786.2 Cough 05/29/2008 AYDIN WALSH DOA K 465.9 Upper Respiratory Infection 05/29/2008 RONDA MCPHERSON MD 465. 9 Upper Respiratory Infection 05/29/2008 465.9 Uppe r Respiratory Infection 05/29/2008 465.9 Uppe r Respiratory Infection 05/29/2008 465.9 Uppe r Respiratory Infection 05/29/2008 465.9 Uppe r Respiratory Infection 05/29/2008 465.9 Uppe r Respiratory Infection 05/29/2008 465.9 Uppe r Respiratory Infection 05/29/2008 465.9 Uppe r Respiratory Infection 05/29/2008 465.9 Uppe r Respiratory Infection 05/29/2008 465.9 Uppe r Respiratory Infection 05/29/2008 465.9 Uppe r Respiratory Infection 05/29/2008 CATARINA COFFEY MD 465.9 Upper Respiratory Infection 05/29/2008 NICO BETTS MILTON K 465.9 Upper Respiratory Infection 05/29/2008 NICO BETTS [place] K 465.9 Upper Respiratory Infection 05/29/2008 RONDA MCPHERSON MD 465. 9 Upper Respiratory Infection 05/29/2008 RONDA MCPHERSON MD 465. 9 Upper Respiratory Infection 05/29/2008 KAYLEN PALACIOS, SHUN R 465.9 Upper Respiratory Infection 05/29/2008 KAYLEN PALACIOS, SHUN R 465.9 Upper Respiratory Infection 05/29/2008 [employer], PALOMA A 46 5.9 Upper Respiratory Infection 05/29/2008 [employer], PALOMA A 46 5.9 Upper Respiratory Infection 05/29/2008 RONDA MCPHERSON MD 465. 9 Upper Respiratory Infection 05/29/2008 CATARINA COFFEY MD 465.9 Upper Respiratory Infection 05/29/2008 NICO BETTS [place] K 465.9 Upper Respiratory Infection 05/29/2008 AYDIN WALSH DOA K 465.9 Upper Respiratory Infection 05/29/2008 AYDIN WALSH DOA K 465.9 Upper Respiratory Infection 05/29/2008 BINTA [employer], PILAR A 465.9 Upper Respiratory Infection 05/29/2008 BINTA PALACIOS, PILAR A 465.9 Upper Respiratory Infection 05/29/2008 RADHA MCPHERSON MDISTA 465. 9 Upper Respiratory Infection 05/29/2008 ISABELA PALACIOS NORM R 465.9 Upper Respiratory Infection 05/29/2008 RONDA MCPHERSON MD 465. 9 Upper Respiratory Infection 05/29/2008 CATARINA COFFEY MD 465.9 Upper Respiratory Infection 05/29/2008 RADHA MCPHERSON MDISTA 465. 9 Upper Respiratory Infection 05/29/2008 CATARINA COFFEY MD 465.9 Upper Respiratory Infection 05/29/2008 GIOVANNI PAALCIOS, PALOMA A 46 5.9 Upper Respiratory Infection 05/29/2008 NICO BETTS MILTON K 465.9 Upper Respiratory Infection 11/15/2008 NICO BETTS [place] K 787.01 Nausea With Vomiting 11/15/2008 NICO BETTS [place] K 787.91 Diarrhea 11/15/2008 RONDA MCPHERSON MD 787. 01 Nausea With Vomiting 11/15/2008 RONDA MCPHERSON MD 787. 91 Diarrhea 11/15/2008 787.01 David sea With Vomiting 11/15/2008 787.91 Edith rrhea 11/15/2008 787.01 David sea With Vomiting 11/15/2008 787.91 Edith rrhea 11/15/2008 787.01 David sea With Vomiting 11/15/2008 787.91 Edith rrhea 11/15/2008 787.01 David sea With Vomiting 11/15/2008 787.91 Edith rrhea 11/15/2008 787.01 David sea With Vomiting 11/15/2008 787.91 Edith rrhea 11/15/2008 787.01 David sea With Vomiting 11/15/2008 787.91 Edith rrhea 11/15/2008 787.01 David sea With Vomiting 11/15/2008 787.91 Edith rrhea 11/15/2008 787.01 David sea With Vomiting 11/15/2008 787.91 Edith rrhea 11/15/2008 787.01 David sea With Vomiting 11/15/2008 787.91 Edith rrhea 11/15/2008 787.01 David sea With Vomiting 11/15/2008 787.91 Edith rrhea 11/15/2008 CATARINA COFFEY MD 787.01 Nausea With Vomiting 11/15/2008 CATARINA COFFEY MD 787.91 Diarrhea 11/15/2008 NICO BETTS [place] K 787.01 Nausea With Vomiting 11/15/2008 WALSH DO MILTON K 787.91 Diarrhea 11/15/2008 WALSH AYDIN BETTSA K 787.01 Nausea With Vomiting 11/15/2008 WALSH AYDIN BETTSA K 787.91 Diarrhea 11/15/2008 VIDA VICENTE RONDA 787. 01 Nausea With Vomiting 11/15/2008 RADHA MCPHERSON MDISTA 787. 91 Diarrhea 11/15/2008 VIDA VICENTE RONDA 787. 01 Nausea With Vomiting 11/15/2008 VIDA VICENTE RONDA 787. 91 Diarrhea 11/15/2008 SHUN ABDULLAHI APRN R 787.01 Nausea With Vomiting 11/15/2008 KOBE ABDULLAHI APRNIA R 787.91 Diarrhea 11/15/2008 KOBE ABDULLAHI APRNIA R 787.01 Nausea With Vomiting 11/15/2008 KOBE ABDULLAHI APRNIA R 787.91 Diarrhea 11/15/2008 PALOMA DAVILA APRN A 787.01 Nausea With Vomiting 11/15/2008 PALOMA DAVILA APRN A 787.91 Diarrhea 11/15/2008 GIOVANNI PALACIOS PALOMA A 787.01 Nausea With Vomiting 11/15/2008 GIOVANNI PALACIOS PALOMA A 787.91 Diarrhea 11/15/2008 VIDA VICENTE, RONDA 787. 01 Nausea With Vomiting 11/15/2008 VIDA VICENTE, RONDA 787. 91 Diarrhea 11/15/2008 ERLINDA VICENTE, CATARINA 787.01 Nausea With Vomiting 11/15/2008 ERLINDA VICENTE, CATARINA 787.91 Diarrhea 11/15/2008 WALSH DO, MILTON K 787.01 Nausea With Vomiting 11/15/2008 WALSH DO, MILTON K 787.91 Diarrhea 11/15/2008 WALSH DO, MILTON K 787.01 Nausea With Vomiting 11/15/2008 WALSH DO, MILTON K 787.91 Diarrhea 11/15/2008 WALSH DO, MILTON K 787.01 Nausea With Vomiting 11/15/2008 WALSH DO, MILTON K 787.91 Diarrhea 11/15/2008 BINTA PALACIOS PILAR A 787.01 Nausea With Vomiting 11/15/2008 BINTA PALACIOS PILAR A 787.91 Diarrhea 11/15/2008 BINTA PALACIOS PILAR A 787.01 Nausea With Vomiting 11/15/2008 BINTA PALACIOS PILAR A 787.91 Diarrhea 11/15/2008 RONDA MCPHERSON MD 787. 01 Nausea With Vomiting 11/15/2008 VIDA VICENTE, RONDA 787. 91 Diarrhea 11/15/2008 ISABELA PALACIOS NORM R 787.01 Nausea With Vomiting 11/15/2008 ISABELA PALACIOS NORM R 787.91 Diarrhea 11/15/2008 VIDA VICENTE, RONDA 787. 01 Nausea With Vomiting 11/15/2008 VIDA VICENTE, RONDA 787. 91 Diarrhea 11/15/2008 CATARINA COFFEY MD 787.01 Nausea With Vomiting 11/15/2008 ERLINDA VICENTE, CATARINA 787.91 Diarrhea 11/15/2008 VIDA VICENTE, RONDA 787. 01 Nausea With Vomiting 11/15/2008 VIDA VICENTE, RONDA 787. 91 Diarrhea 11/15/2008 CATARINA COFFEY MD 787.01 Nausea With Vomiting 11/15/2008 ERLINDA VICENTE, CATARINA 787.91 Diarrhea 11/15/2008 [employer], PALOMA A 787.01 Nausea With Vomiting 11/15/2008 [employer], PALOMA A 787.91 Diarrhea 11/15/2008 WALSH , MILTON K 787.01 Nausea With Vomiting 11/15/2008 WALSH DO, MILTON K 787.91 Diarrhea 02/13/2011 WALSH DO MILTON K 380.22 Other Acute Otitis Externa 02/13/2011 RONDA MCPHERSON MD 380. 22 Other Acute Otitis Externa 02/13/2011 380.22 Oth er Acute Otitis Externa 02/13/2011 380.22 Oth er Acute Otitis Externa 02/13/2011 380.22 Oth er Acute Otitis Externa 02/13/2011 380.22 Oth er Acute Otitis Externa 02/13/2011 380.22 Oth er Acute Otitis Externa 02/13/2011 380.22 Oth er Acute Otitis Externa 02/13/2011 380.22 Oth er Acute Otitis Externa 02/13/2011 380.22 Oth er Acute Otitis Externa 02/13/2011 380.22 Oth er Acute Otitis Externa 02/13/2011 380.22 Oth er Acute Otitis Externa 02/13/2011 CATARINA COFFEY MD 380.22 Other Acute Otitis Externa 02/13/2011 MILTON WALSH DO K 380.22 Other Acute Otitis Externa 02/13/2011 AYDIN WALSH DOA K 380.22 Other Acute Otitis Externa 02/13/2011 RONDA MCPHERSON MD 380. 22 Other Acute Otitis Externa 02/13/2011 RONDA MCPHERSON MD 380. 22 Other Acute Otitis Externa 02/13/2011 KAYLEN PALACIOS SHUN R 380.22 Other Acute Otitis Externa 02/13/2011 KAYLEN PALACIOS SHUN R 380.22 Other Acute Otitis Externa 02/13/2011 GIOVANNIEMILIANO Zuñiga APRNIDI A 380.22 Other Acute Otitis Externa 02/13/2011 GIOVANNIEMILIANO Zuñiga APRNIDI A 380.22 Other Acute Otitis Externa 02/13/2011 RONDA MCPHERSON MD 380. 22 Other Acute Otitis Externa 02/13/2011 CATARINA COFFEY MD 380.22 Other Acute Otitis Externa 02/13/2011 MILTON WALSH DO K 380.22 Other Acute Otitis Externa 02/13/2011 WALSH DO MILTON K 380.22 Other Acute Otitis Externa 02/13/2011 WALSH DO MILTON K 380.22 Other Acute Otitis Externa 02/13/2011 BINTA [employer]NS[employer]JEANNE ZuñigaYL A 380.22 Other Acute Otitis Externa 02/13/2011 ANGELINAOTTE [employer], PILAR A 380.22 Other Acute Otitis Externa 02/13/2011 VIDA VICENTE, RONDA 380. 22 Other Acute Otitis Externa 02/13/2011 WENDI MAR APRNINA R 380.22 Other Acute Otitis Externa 02/13/2011 VIDA VICENTE, RONDA 380. 22 Other Acute Otitis Externa 02/13/2011 CATARINA COFFEY MD 380.22 Other Acute Otitis Externa 02/13/2011 RONDA MCPHERSON MD 380. 22 Other Acute Otitis Externa 02/13/2011 CATARINA COFFEY MD 380.22 Other Acute Otitis Externa 02/13/2011 GIOVANNI PALACIOS, PALOMA A 380.22 Other Acute Otitis Externa 02/13/2011 AYDIN WALSH DOA K 380.22 Other Acute Otitis Externa 03/12/2011 AYDIN WALSH DOA K 703.0 Ingrowing Nail 03/12/2011 WALSH DO MILTON K V03.89 Meningococcal Dx 03/12/2011 NICO BETTS [place] K V05.3 Hep A (ped/adol 2-dose) Dx 03/12/2011 AYDIN WALSH DOA K V05.4 Varicella Dx 03/12/2011 AYDIN WALSH DOA K V06.1 Tdap Dx 03/12/2011 VIDA VICENTE, RONDA 703. 0 Ingrowing Nail 03/12/2011 VIDA VICENTE, RONDA V03. 89 Meningococcal Dx 03/12/2011 VIDA VICENTE, RONDA V05. 3 Hep A (ped/adol 2-dose) Dx 03/12/2011 VIDA VICENTE, RONDA V05. 4 Varicella Dx 03/12/2011 VIDA VICENTE, RONDA V06. 1 Tdap Dx 03/12/2011 703.0 Ingr owing Nail 03/12/2011 V03.89 Men ingococcal Dx 03/12/2011 V05.3 Hep A (ped/adol 2- dose) Dx 03/12/2011 V05.4 Vari lopez Dx 03/12/2011 V06.1 Tdap Dx 03/12/2011 703.0 Ingr owing Nail 03/12/2011 V03.89 Men ingococcal Dx 03/12/2011 V05.3 Hep A (ped/adol 2- dose) Dx 03/12/2011 V05.4 Vari lopez Dx 03/12/2011 V06.1 Tdap Dx 03/12/2011 703.0 Ingr owing Nail 03/12/2011 V03.89 Men ingococcal Dx 03/12/2011 V05.3 Hep A (ped/adol 2- dose) Dx 03/12/2011 V05.4 Vari lopez Dx 03/12/2011 V06.1 Tdap Dx 03/12/2011 703.0 Ingr owing Nail 03/12/2011 V03.89 Men ingococcal Dx 03/12/2011 V05.3 Hep A (ped/adol 2- dose) Dx 03/12/2011 V05.4 Vari lopez Dx 03/12/2011 V06.1 Tdap Dx 03/12/2011 703.0 Ingr owing Nail 03/12/2011 V03.89 Men ingococcal Dx 03/12/2011 V05.3 Hep A (ped/adol 2- dose) Dx 03/12/2011 V05.4 Vari lopez Dx 03/12/2011 V06.1 Tdap Dx 03/12/2011 703.0 Ingr owing Nail 03/12/2011 V03.89 Men ingococcal Dx 03/12/2011 V05.3 Hep A (ped/adol 2- dose) Dx 03/12/2011 V05.4 Vari lopez Dx 03/12/2011 V06.1 Tdap Dx 03/12/2011 703.0 Ingr owing Nail 03/12/2011 V03.89 Men ingococcal Dx 03/12/2011 V05.3 Hep A (ped/adol 2- dose) Dx 03/12/2011 V05.4 Vari lopez Dx 03/12/2011 V06.1 Tdap Dx 03/12/2011 703.0 Ingr owing Nail 03/12/2011 V03.89 Men ingococcal Dx 03/12/2011 V05.3 Hep A (ped/adol 2- dose) Dx 03/12/2011 V05.4 Vari lopez Dx 03/12/2011 V06.1 Tdap Dx 03/12/2011 703.0 Ingr owing Nail 03/12/2011 V03.89 Men ingococcal Dx 03/12/2011 V05.3 Hep A (ped/adol 2- dose) Dx 03/12/2011 V05.4 Vari lopez Dx 03/12/2011 V06.1 Tdap Dx 03/12/2011 703.0 Ingr owing Nail 03/12/2011 V03.89 Men ingococcal Dx 03/12/2011 V05.3 Hep A (ped/adol 2- dose) Dx 03/12/2011 V05.4 Vari lopez Dx 03/12/2011 V06.1 Tdap Dx 03/12/2011 ERLINDA VICENTE, CATARINA [...] V06.1 Tdap Dx 03/12/2011 VIDA VICENTE, RONDA 703. 0 Ingrowing Nail 03/12/2011 VIDA VICENTE, RONDA V03. 89 Meningococcal Dx 03/12/2011 VIDA VICENTE, RONDA V05. 3 Hep A (ped/adol 2-dose) Dx 03/12/2011 VIDA VICENTE, RONDA V05. 4 Varicella Dx 03/12/2011 VIDA VICENTE, RONDA V06. 1 Tdap Dx 03/12/2011 VIDA VICENTE, RONDA 703. 0 Ingrowing Nail 03/12/2011 VIDA VICENTE, RONDA V03. 89 Meningococcal Dx 03/12/2011 VIDA VICENTE, RONDA V05. 3 Hep A (ped/adol 2-dose) Dx 03/12/2011 VIDA VICENTE, RONDA V05. 4 Varicella Dx 03/12/2011 VIDA VICENTE, RONDA V06. 1 Tdap Dx 03/12/2011 ABDULLAHI [employer], SHUN R 703.0 Ingrowing Nail 03/12/2011 KAYLEN [employer], SHUN R V03.89 Meningococcal Dx 03/12/2011 ABDULLAHI [employer], SHUN R V05.3 Hep A (ped/adol 2-dose) Dx 03/12/2011 ABD[employer]AHI [employer], SHUN R V05.4 Varicella Dx 03/12/2011 ABDULLAHI [employer], SHUN R V06.1 Tdap Dx 03/12/2011 KAYLEN [employer], SHUN R 703.0 Ingrowing Nail 03/12/2011 KAYLEN [employer], SHUN R V03.89 Meningococcal Dx 03/12/2011 KAYLEN [employer], SHUN R V05.3 Hep A (ped/adol 2-dose) Dx 03/12/2011 ABDULLAHI [employer], SHUN R V05.4 Varicella Dx 03/12/2011 KAYLEN [employer], SHUN R V06.1 Tdap Dx 03/12/2011 GIOV[employer]NI [employer], PALOMA A 70 3.0 Ingrowing Nail 03/12/2011 [employer], PALOMA A V03.89 Meningococcal Dx 03/12/2011 [employer], PALOMA A V0 5.3 Hep A (ped/adol 2-dose) Dx 03/12/2011 [employer], PALOMA A V0 5.4 Varicella Dx 03/12/2011 [employer], PALOMA A V0 6.1 Tdap Dx 03/12/2011 [employer], PALOMA A 70 3.0 Ingrowing Nail 03/12/2011 [employer], PALOMA A V03.89 Meningococcal Dx 03/12/2011 [employer], PALOMA A V0 5.3 Hep A (ped/adol 2-dose) Dx 03/12/2011 [employer], PALOMA A V0 5.4 Varicella Dx 03/12/2011 [employer], PALOMA A V0 6.1 Tdap Dx 03/12/2011 VIDA VICENTE, RONDA 703. 0 Ingrowing Nail 03/12/2011 VIDA VICENTE, RONDA V03. 89 Meningococcal Dx 03/12/2011 VIDA VICENTE, RONDA V05. 3 Hep A (ped/adol 2-dose) Dx 03/12/2011 VIDA VICENTE, RONDA V05. 4 Varicella Dx 03/12/2011 VIDA VICENTE, RONDA V06. 1 Tdap Dx 03/12/2011 ERLINDA VICENTE, CATARINA 703.0 [...] MILTON K V06.1 Tdap Dx 03/12/2011 [employer], PILAR A 703.0 Ingrowing Nail 03/12/2011 [employer], PILAR A V03.89 Meningococcal Dx 03/12/2011 [employer], PILAR A V05.3 Hep A (ped/adol 2-dose) Dx 03/12/2011 [employer], PILAR A V05.4 Varicella Dx 03/12/2011 [employer], PILAR A V06.1 Tdap Dx 03/12/2011 [employer], PILAR A 703.0 Ingrowing Nail 03/12/2011 [employer], PILAR A V03.89 Meningococcal Dx 03/12/2011 [employer], PILAR A V05.3 Hep A (ped/adol 2-dose) Dx 03/12/2011 [employer], PILAR A V05.4 Varicella Dx 03/12/2011 [employer], PILAR A V06.1 Tdap Dx 03/12/2011 VIDA VICENTE, RONDA 703. 0 Ingrowing Nail 03/12/2011 VIDA VICENTE, RONDA V03. 89 Meningococcal Dx 03/12/2011 VIDA VICENTE, RONDA V05. 3 Hep A (ped/adol 2-dose) Dx 03/12/2011 VIDA VICENTE, RONDA V05. 4 Varicella Dx 03/12/2011 VIDA VICENTE, RONDA V06. 1 Tdap Dx 03/12/2011 ISABELA [employer], NORM R 703.0 Ingrowing Nail 03/12/2011 ISABELA [employer], NORM R V03.89 Meningococcal Dx 03/12/2011 ISABELA [employer], NORM R V05.3 Hep A (ped/adol 2-dose) Dx 03/12/2011 ISABELA [employer], NORM R V05.4 Varicella Dx 03/12/2011 IS[employer]A [employer], NORM R V06.1 Tdap Dx 03/12/2011 VIDA VICENTE, RONDA 703. 0 Ingrowing Nail 03/12/2011 VIDA VICENTE, RONDA V03. 89 Meningococcal Dx 03/12/2011 VIDA VICENTE, RONDA V05. 3 Hep A (ped/adol 2-dose) Dx 03/12/2011 VIDA VICENTE, RONDA V05. 4 Varicella Dx 03/12/2011 VIDA VICENTE, RONDA V06. 1 Tdap Dx 03/12/2011 ERLINDA VICENTE, CATARINA 703.0 Ingrowing Nail 03/12/2011 ERLINDA VICENTE, CATARINA V03.89 Meningococcal Dx 03/12/2011 ERLINDA VICENTE, CATARINA V05.3 Hep A (ped/adol 2-dose) Dx 03/12/2011 ERLINDA VICENTE, CATARINA V05.4 Varicella Dx 03/12/2011 ERLINDA VICENTE, CATARINA V06.1 Tdap Dx 03/12/2011 VIDA VICENTE, RONDA 703. 0 Ingrowing Nail 03/12/2011 VIDA VICENTE, RONDA V03. 89 Meningococcal Dx 03/12/2011 VIDA VICENTE, RONDA V05. 3 Hep A (ped/adol 2-dose) Dx 03/12/2011 VIDA VICENTE, RONDA V05. 4 Varicella Dx 03/12/2011 VIDA VICENTE, RONDA V06. 1 Tdap Dx 03/12/2011 ERLINDA VICENTE, CATARINA 703.0 Ingrowing Nail 03/12/2011 ERLINDA VICENTE, CATARINA V03.89 Meningococcal Dx 03/12/2011 ERLINDA VICENTE, CATARINA V05.3 Hep A (ped/adol 2-dose) Dx 03/12/2011 ERLINDA VICENTE, CATARINA V05.4 Varicella Dx 03/12/2011 ERLINDA VICENTE, CATARINA V06.1 Tdap Dx 03/12/2011 [employer]NI [employer], PALOMA A 70 3.0 Ingrowing Nail 03/12/2011 [employer], PALOMA A V03.89 Meningococcal Dx 03/12/2011 [employer], PALOMA A V0 5.3 Hep A (ped/adol 2-dose) Dx 03/12/2011 [employer], PALOMA A V0 5.4 Varicella Dx 03/12/2011 [employer], PALOMA A V0 6.1 Tdap Dx 03/12/2011 NICO BETTSMILTON 703.0 Ingrowing Nail 03/12/2011 NICO BETTS, MILTON Burrell V03.89 Meningococcal Dx 03/12/2011 NICO BETTS, MILTON K V05.3 Hep A (ped/adol 2-dose) Dx 03/12/2011 WALSH DO, MILTON K V05.4 Varicella Dx 03/12/2011 NICO BETTS, MILTON K V06.1 Tdap Dx 10/01/2011 NICO BETTSMILTON V04.89 GARDASIL (HPV) DX 10/01/2011 RONDA MCPHERSON MD V04. 89 GARDASIL (HPV) DX 10/01/2011 V04.89 GAR DASIL (HPV) DX 10/01/2011 V04.89 GAR DASIL (HPV) DX 10/01/2011 V04.89 GAR DASIL (HPV) DX 10/01/2011 V04.89 GAR DASIL (HPV) DX 10/01/2011 V04.89 GAR DASIL (HPV) DX 10/01/2011 V04.89 GAR DASIL (HPV) DX 10/01/2011 V04.89 GAR DASIL (HPV) DX 10/01/2011 V04.89 GAR DASIL (HPV) DX 10/01/2011 V04.89 GAR DASIL (HPV) DX 10/01/2011 V04.89 GAR DASIL (HPV) DX 10/01/2011 CATARINA COFFEY MD V04.89 GARDASIL (HPV) DX 10/01/2011 MILTON WALSH DO V04.89 GARDASIL (HPV) DX 10/01/2011 MILTON WALSH DO V04.89 GARDASIL (HPV) DX 10/01/2011 RONDA MCPHERSON MD V04. 89 GARDASIL (HPV) DX 10/01/2011 RONDA MCPHERSON MD V04. 89 GARDASIL (HPV) DX 10/01/2011 SHUN ABDULLAHI APRN V04.89 GARDASIL (HPV) DX 10/01/2011 SHUN ABDULLAHI APRN R V04.89 GARDASIL (HPV) DX 10/01/2011 GIOVANNI PALACIOS, PALOMA A V04.89 GARDASIL (HPV) DX 10/01/2011 GIOVANNI PALACIOS, PALOMA A V04.89 GARDASIL (HPV) DX 10/01/2011 RONDA MCPHERSON MD V04. 89 GARDASIL (HPV) DX 10/01/2011 CATARINA COFFEY MD V04.89 GARDASIL (HPV) DX 10/01/2011 MILTON WALSH DO V04.89 GARDASIL (HPV) DX 10/01/2011 MILTON WALSH DO V04.89 GARDASIL (HPV) DX 10/01/2011 MILTON WALSH DO V04.89 GARDASIL (HPV) DX 10/01/2011 PILAR JUDD APRN A V04.89 GARDASIL (HPV) DX 10/01/2011 PILAR JUDD APRN A V04.89 GARDASIL (HPV) DX 10/01/2011 RONDA MCPHERSON MD V04. 89 GARDASIL (HPV) DX 10/01/2011 NORM MAR APRN V04.89 GARDASIL (HPV) DX 10/01/2011 RONDA MCPHERSON MD V04. 89 GARDASIL (HPV) DX 10/01/2011 CATARINA COFFEY MD V04.89 GARDASIL (HPV) DX 10/01/2011 RONDA MCPHERSON MD V04. 89 GARDASIL (HPV) DX 10/01/2011 CATARINA COFFEY MD V04.89 GARDASIL (HPV) DX 10/01/2011 GIOVANNI PALACIOS, PALOMA A V04.89 GARDASIL (HPV) DX 10/01/2011 MILTON WALSH DO V04.89 GARDASIL (HPV) DX 02/04/2012 Ot 682.3 CELL ULITIS OF ARM 04/28/2012 MILTON WALSH DO 381.81 DYSFUNCTION OF EUSTACHIAN TUBE 04/28/2012 MILTON WALSH DO 477.9 ALLERGIC RHINITIS CAUSE UNSPECIFIED 04/28/2012 RONDA MCPHERSON MD 381. 81 DYSFUNCTION OF EUSTACHIAN TUBE 04/28/2012 RONDA MCPHERSON MD 477. 9 ALLERGIC RHINITIS CAUSE UNSPECIFIED 04/28/2012 381.81 DYS FUNCTION OF EUSTACHIAN TUBE 04/28/2012 477.9 CARLYN RGIC RHINITIS CAUSE UNSPECIFIED 04/28/2012 381.81 DYS FUNCTION OF EUSTACHIAN TUBE 04/28/2012 477.9 CARLYN RGIC RHINITIS CAUSE UNSPECIFIED 04/28/2012 381.81 DYS FUNCTION OF EUSTACHIAN TUBE 04/28/2012 477.9 CARLYN RGIC RHINITIS CAUSE UNSPECIFIED 04/28/2012 381.81 DYS FUNCTION OF EUSTACHIAN TUBE 04/28/2012 477.9 CARLYN RGIC RHINITIS CAUSE UNSPECIFIED 04/28/2012 381.81 DYS FUNCTION OF EUSTACHIAN TUBE 04/28/2012 477.9 CARLYN RGIC RHINITIS CAUSE UNSPECIFIED 04/28/2012 381.81 DYS FUNCTION OF EUSTACHIAN TUBE 04/28/2012 477.9 CARLYN RGIC RHINITIS CAUSE UNSPECIFIED 04/28/2012 381.81 DYS FUNCTION OF EUSTACHIAN TUBE 04/28/2012 477.9 CARLYN RGIC RHINITIS 04/28/2012 381.81 DYS FUNCTION OF EUSTACHIAN TUBE 04/28/2012 477.9 CARLYN RGIC RHINITIS 04/28/2012 381.81 DYS FUNCTION OF EUSTACHIAN TUBE 04/28/2012 477.9 CARLYN RGIC RHINITIS 04/28/2012 381.81 DYS FUNCTION OF EUSTACHIAN TUBE 04/28/2012 477.9 CARLYN RGIC RHINITIS 04/28/2012 CATARINA COFFEY MD 381.81 DYSFUNCTION OF EUSTACHIAN TUBE 04/28/2012 CATARINA COFFEY MD 477.9 ALLERGIC RHINITIS 04/28/2012 MILTON WALSH DO 381.81 DYSFUNCTION OF EUSTACHIAN TUBE 04/28/2012 WALSH AYDIN BETTSA K 477.9 ALLERGIC RHINITIS 04/28/2012 MILTON WALSH DO K 381.81 DYSFUNCTION OF EUSTACHIAN TUBE 04/28/2012 WALSH DO MILTON K 477.9 ALLERGIC RHINITIS 04/28/2012 RONDA MCPHERSON MD 381. 81 DYSFUNCTION OF EUSTACHIAN TUBE 04/28/2012 RONDA MCPHERSON MD 477. 9 ALLERGIC RHINITIS 04/28/2012 RONDA MCPHERSON MD 381. 81 DYSFUNCTION OF EUSTACHIAN TUBE 04/28/2012 RADHA MCPHERSON MDISTA 477. 9 ALLERGIC RHINITIS 04/28/2012 LEONILA ABDULLAHI APRNRICIA R 381.81 DYSFUNCTION OF EUSTACHIAN TUBE 04/28/2012 KAYLEN PALACIOS SHUN R 477.9 ALLERGIC RHINITIS 04/28/2012 LEONILA ABDULLAHI APRNRICIA R 381.81 DYSFUNCTION OF EUSTACHIAN TUBE 04/28/2012 KAYLEN PALACIOS SHUN R 477.9 ALLERGIC RHINITIS 04/28/2012 GIOVANNIZara PALACIOS PALOMA A 381.81 DYSFUNCTION OF EUSTACHIAN TUBE 04/28/2012 GIOVANNI APRN, PALOMA A 47 7.9 ALLERGIC RHINITIS 04/28/2012 GIOVANNI PALACIOS PALOMA A 381.81 DYSFUNCTION OF EUSTACHIAN TUBE 04/28/2012 GIOVANNI PLAACIOS, PALOMA A 47 7.9 ALLERGIC RHINITIS 04/28/2012 RONDA MCPHERSON MD 381. 81 DYSFUNCTION OF EUSTACHIAN TUBE 04/28/2012 RONDA MCPHERSON MD 477. 9 ALLERGIC RHINITIS 04/28/2012 CATARINA COFFEY MD 381.81 DYSFUNCTION OF EUSTACHIAN TUBE 04/28/2012 CATARINA COFFEY MD 477.9 ALLERGIC RHINITIS 04/28/2012 WALSH DO, MILTON K 381.81 DYSFUNCTION OF EUSTACHIAN TUBE 04/28/2012 WALSH DO, MILTON K 477.9 ALLERGIC RHINITIS 04/28/2012 WALSH DO MILTON K 381.81 DYSFUNCTION OF EUSTACHIAN TUBE 04/28/2012 WALSH DO, MILTON K 477.9 ALLERGIC RHINITIS 04/28/2012 WALSH DO, MILTON K 381.81 DYSFUNCTION OF EUSTACHIAN TUBE 04/28/2012 WALSH DO, MILTON K 477.9 ALLERGIC RHINITIS 04/28/2012 BINTA PALACIOS PILAR A 381.81 DYSFUNCTION OF EUSTACHIAN TUBE 04/28/2012 BINTA PALACIOS PILAR A 477.9 ALLERGIC RHINITIS 04/28/2012 BINTA PALACIOS PILAR A 381.81 DYSFUNCTION OF EUSTACHIAN TUBE 04/28/2012 BINTA PALACIOS PILAR A 477.9 ALLERGIC RHINITIS 04/28/2012 RONDA MCPHERSON MD 381. 81 DYSFUNCTION OF EUSTACHIAN TUBE 04/28/2012 RONDA MCPHERSON MD 477. 9 ALLERGIC RHINITIS 04/28/2012 NORM MAR APRN R 381.81 DYSFUNCTION OF EUSTACHIAN TUBE 04/28/2012 NORM MAR APRN R 477.9 ALLERGIC RHINITIS 04/28/2012 RONDA MCPHERSON MD 381. 81 DYSFUNCTION OF EUSTACHIAN TUBE 04/28/2012 RONDA MCPHERSON MD 477. 9 ALLERGIC RHINITIS 04/28/2012 CATARINA COFFEY MD 381.81 DYSFUNCTION OF EUSTACHIAN TUBE 04/28/2012 CATARINA COFFEY MD 477.9 ALLERGIC RHINITIS 04/28/2012 RONDA MCPHERSON MD 381. 81 DYSFUNCTION OF EUSTACHIAN TUBE 04/28/2012 RONDA MCPHERSON MD 477. 9 ALLERGIC RHINITIS 04/28/2012 CATARINA COFFEY MD 381.81 DYSFUNCTION OF EUSTACHIAN TUBE 04/28/2012 CATRAINA COFFEY MD 477.9 ALLERGIC RHINITIS 04/28/2012 EMILIANO DAVILA APRNIDI A 381.81 DYSFUNCTION OF EUSTACHIAN TUBE 04/28/2012 GIOVANNI PALACIOS PALOMA A 47 7.9 ALLERGIC RHINITIS 04/28/2012 NICO BETTS [place] K 381.81 DYSFUNCTION OF EUSTACHIAN TUBE 04/28/2012 AYDIN WALSH DOA K 477.9 ALLERGIC RHINITIS 06/01/2012 NICO BETTS [place] K V25.09 CONTRACEPTIVE COUNSELING - GENERAL 06/01/2012 RONDA MCPHERSON MD V25. 09 CONTRACEPTIVE COUNSELING - GENERAL 06/01/2012 V25.09 CON TRACEPTIVE COUNSELING - GENERAL 06/01/2012 V25.09 CON TRACEPTIVE COUNSELING - GENERAL 06/01/2012 V25.09 CON TRACEPTIVE COUNSELING - GENERAL 06/01/2012 V25.09 CON TRACEPTIVE COUNSELING - GENERAL 06/01/2012 V25.09 CON TRACEPTIVE COUNSELING - GENERAL 06/01/2012 V25.09 CON TRACEPTIVE COUNSELING - GENERAL 06/01/2012 V25.09 CON TRACEPTIVE COUNSELING - GENERAL 06/01/2012 V25.09 CON TRACEPTIVE COUNSELING - GENERAL 06/01/2012 V25.09 CON TRACEPTIVE COUNSELING - GENERAL 06/01/2012 V25.09 CON TRACEPTIVE COUNSELING - GENERAL 06/01/2012 CATARINA COFFEY MD V25.09 CONTRACEPTIVE COUNSELING - GENERAL 06/01/2012 MILTON WALSH DO K V25.09 CONTRACEPTIVE COUNSELING - GENERAL 06/01/2012 WALSH AYDIN BETTSA K V25.09 CONTRACEPTIVE COUNSELING - GENERAL 06/01/2012 RONDA MCPHERSON MD V25. 09 CONTRACEPTIVE COUNSELING - GENERAL 06/01/2012 RONDA MCPHERSON MD V25. 09 CONTRACEPTIVE COUNSELING - GENERAL 06/01/2012 KAYLEN [employer]NS[employer], SHUN R V25.09 CONTRACEPTIVE COUNSELING - GENERAL 06/01/2012 KAYLEN PALACIOS SHUN R V25.09 CONTRACEPTIVE COUNSELING - GENERAL 06/01/2012 GIOVANNIZara PALACIOS PALOMA A V25.09 CONTRACEPTIVE COUNSELING - GENERAL 06/01/2012 GIOVANNIZara PALACIOS PALOMA A V25.09 CONTRACEPTIVE COUNSELING - GENERAL 06/01/2012 RONDA MCPHERSON MD V25. 09 CONTRACEPTIVE COUNSELING - GENERAL 06/01/2012 CATARINA COFFEY MD V25.09 CONTRACEPTIVE COUNSELING - GENERAL 06/01/2012 MILTON WALSH DO K V25.09 CONTRACEPTIVE COUNSELING - GENERAL 06/01/2012 MILTON WALSH DO K V25.09 CONTRACEPTIVE COUNSELING - GENERAL 06/01/2012 MILTON WALSH DO K V25.09 CONTRACEPTIVE COUNSELING - GENERAL 06/01/2012 BINTA PALACIOS PILAR A V25.09 CONTRACEPTIVE COUNSELING - GENERAL 06/01/2012 BINTA PALACIOS PILAR A V25.09 CONTRACEPTIVE COUNSELING - GENERAL 06/01/2012 RONDA MCPHERSON MD V25. 09 CONTRACEPTIVE COUNSELING - GENERAL 06/01/2012 ISABELA PALACIOS NORM R V25.09 CONTRACEPTIVE COUNSELING - GENERAL 06/01/2012 RONDA MCPHERSON MD V25. 09 CONTRACEPTIVE COUNSELING - GENERAL 06/01/2012 CATARINA COFFEY MD V25.09 CONTRACEPTIVE COUNSELING - GENERAL 06/01/2012 RONDA MCPHERSON MD V25. 09 CONTRACEPTIVE COUNSELING - GENERAL 06/01/2012 CATARINA COFFEY MD V25.09 CONTRACEPTIVE COUNSELING - GENERAL 06/01/2012 GIOVANNI PALACIOS PALOMA A V25.09 CONTRACEPTIVE COUNSELING - GENERAL 06/01/2012 MILTON WALSH DO K V25.09 CONTRACEPTIVE COUNSELING - GENERAL 06/16/2012 MILTON WALSH DO K 461.9 SINUSITIS ACUTE 06/16/2012 MILTON WALSH DO 466.0 BRONCHITIS, ACUTE 06/16/2012 MILTON WALSH DO K 706.1 ACNE 06/16/2012 VIDA VICENTE, RONDA 461. 9 SINUSITIS ACUTE 06/16/2012 VIDA VICENTE, RONDA 466. 0 BRONCHITIS, ACUTE 06/16/2012 VIDA VICENTE, RONDA 706. 1 ACNE 06/16/2012 461.9 SINU SITIS ACUTE 06/16/2012 466.0 BRON CHITIS, ACUTE 06/16/2012 706.1 ACNE 06/16/2012 461.9 SINU SITIS ACUTE 06/16/2012 466.0 BRON CHITIS, ACUTE 06/16/2012 706.1 ACNE 06/16/2012 461.9 SINU SITIS ACUTE 06/16/2012 466.0 BRON CHITIS, ACUTE 06/16/2012 706.1 ACNE 06/16/2012 461.9 SINU SITIS ACUTE 06/16/2012 466.0 BRON CHITIS, ACUTE 06/16/2012 706.1 ACNE 06/16/2012 461.9 SINU SITIS ACUTE 06/16/2012 466.0 BRON CHITIS, ACUTE 06/16/2012 706.1 ACNE 06/16/2012 461.9 SINU SITIS ACUTE 06/16/2012 466.0 BRON CHITIS, ACUTE 06/16/2012 706.1 ACNE 06/16/2012 461.9 SINU SITIS ACUTE 06/16/2012 466.0 BRON CHITIS, ACUTE 06/16/2012 706.1 ACNE 06/16/2012 461.9 SINU SITIS ACUTE 06/16/2012 466.0 BRON CHITIS, ACUTE 06/16/2012 706.1 ACNE 06/16/2012 461.9 SINU SITIS ACUTE 06/16/2012 466.0 BRON CHITIS, ACUTE 06/16/2012 706.1 ACNE 06/16/2012 461.9 SINU SITIS ACUTE 06/16/2012 466.0 BRON CHITIS, ACUTE 06/16/2012 706.1 ACNE 06/16/2012 CATARINA COFFEY MD 461.9 SINUSITIS ACUTE 06/16/2012 CATARINA COFFEY MD 466.0 BRONCHITIS, ACUTE 06/16/2012 CATARINA COFFEY MD 706.1 ACNE 06/16/2012 WALSH DO, MILTON K 461.9 SINUSITIS ACUTE 06/16/2012 WALSH DO, MILTON K 466.0 BRONCHITIS, ACUTE 06/16/2012 WALSH DO, MILTON K 706.1 ACNE 06/16/2012 WALSH DO, MILTON K 461.9 SINUSITIS ACUTE 06/16/2012 WALSH DO, MILTON K 466.0 BRONCHITIS, ACUTE 06/16/2012 WALSH DO, MILTON K 706.1 ACNE 06/16/2012 VIDA VICENTE, RONDA 461. 9 SINUSITIS ACUTE 06/16/2012 VIDA VICENTE, RONDA 466. 0 BRONCHITIS, ACUTE 06/16/2012 VIDA VICENTE, RONDA 706. 1 ACNE 06/16/2012 VIDA VICENTE, RONDA 461. 9 SINUSITIS ACUTE 06/16/2012 VIDA VICENTE, RONDA 466. 0 BRONCHITIS, ACUTE 06/16/2012 VIDA VICENTE, RONDA 706. 1 ACNE 06/16/2012 K[employer]LEN [employer], SHUN R 461.9 SINUSITIS ACUTE 06/16/2012 KAYLEN [employer], SHUN R 466.0 BRONCHITIS, ACUTE 06/16/2012 ABDULLAHI K[employer]NSH[employer], SHUN R 706.1 ACNE 06/16/2012 KAYLEN [employer], SHUN R 461.9 SINUSITIS ACUTE 06/16/2012 ABDULLAHI K[employer]NSH[employer], SHUN R 466.0 BRONCHITIS, ACUTE 06/16/2012 ABDULLAHI K[employer]NSH[employer], SHUN R 706.1 ACNE 06/16/2012 GIOVANNI [employer], PALOMA A 46 1.9 SINUSITIS ACUTE 06/16/2012 GIOVANNI [employer]NS[employer], PALOMA A 46 6.0 BRONCHITIS, ACUTE 06/16/2012 GIOVANNI [employer]NS[employer], PALOMA A 70 6.1 ACNE 06/16/2012 GIOVANNI [employer]NS[employer], PALOMA A 46 1.9 SINUSITIS ACUTE 06/16/2012 GIOVANNI [employer]NSH[employer], PALOMA A 46 6.0 BRONCHITIS, ACUTE 06/16/2012 GIOVANNI [employer], PALOMA A 70 6.1 ACNE 06/16/2012 VIDA VICENTE, RONDA 461. 9 SINUSITIS ACUTE 06/16/2012 VIDA VICENTE, RONDA 466. 0 BRONCHITIS, ACUTE 06/16/2012 VIDA VICENTE, RONDA 706. 1 ACNE 06/16/2012 CATARINA COFFEY MD 461.9 SINUSITIS [...] DO, MILTON K 706.1 ACNE 06/16/2012 RAJOTTE [employer], PILAR A 461.9 SINUSITIS ACUTE 06/16/2012 [employer]TE [employer], PILAR A 466.0 BRONCHITIS, ACUTE 06/16/2012 [employer], PILAR A 706.1 ACNE 06/16/2012 [employer], PILAR A 461.9 SINUSITIS ACUTE 06/16/2012 [employer], PILAR A 466.0 BRONCHITIS, ACUTE 06/16/2012 [employer]TE [employer], PILAR A 706.1 ACNE 06/16/2012 VIDA VICENTE, RONDA 461. 9 SINUSITIS ACUTE 06/16/2012 VIDA VICENTE, RONDA 466. 0 BRONCHITIS, ACUTE 06/16/2012 VIDA VICENTE, RONDA 706. 1 ACNE 06/16/2012 ISABELA [employer]NS[employer], NORM R 461.9 SINUSITIS ACUTE 06/16/2012 ISABELA [employer], NORM R 466.0 BRONCHITIS, ACUTE 06/16/2012 ISABELA [employer], NORM R 706.1 ACNE 06/16/2012 RADHA MCPHERSON MDISTA 461. 9 SINUSITIS ACUTE 06/16/2012 RADHA MCPHERSON MDISTA 466. 0 BRONCHITIS, ACUTE 06/16/2012 VIDA VICENTE, RONDA 706. 1 ACNE 06/16/2012 CATARINA COFFEY MD 461.9 SINUSITIS ACUTE 06/16/2012 CATARINA COFFEY MD 466.0 BRONCHITIS, ACUTE 06/16/2012 ERLINDA VICENTE, CATARINA 706.1 ACNE 06/16/2012 VIDA VICENTE, RONDA 461. 9 SINUSITIS ACUTE 06/16/2012 VIDA VICENTE, RONDA 466. 0 BRONCHITIS, ACUTE 06/16/2012 VIDA VICENTE, RONDA 706. 1 ACNE 06/16/2012 ERLINDA VICENTE, CATARINA 461.9 SINUSITIS ACUTE 06/16/2012 ERLINDA VICENTE, CATARINA 466.0 BRONCHITIS, ACUTE 06/16/2012 ERLINDA VICENTE, CATARINA 706.1 ACNE 06/16/2012 GIOVANNI [employer], PALOMA A 46 1.9 SINUSITIS ACUTE 06/16/2012 GIOVANNI [employer], PALOMA A 46 6.0 BRONCHITIS, ACUTE 06/16/2012 GIOVANNI [employer], PALOMA A 70 6.1 ACNE 06/16/2012 MILTON WALSH DO 461.9 SINUSITIS ACUTE 06/16/2012 MILTON WALSH DO K 466.0 BRONCHITIS, ACUTE 06/16/2012 MILTON WALSH DO K 706.1 ACNE 06/28/2012 Ot 719.54 JT STIFFNESS NEC- HAND 06/28/2012 Ot V57.21 ENC OUNTER FOR OCCUPATIONAL THERAPY 06/28/2012 Ot V58.78 AFT [facility] POST SURGERY MUSCULOSKELETAL S 08/31/2012 V25.49 CON TRACEPTION SURVEILLANCE (REPEAT RX) 08/31/2012 V25.49 CON TRACEPTION SURVEILLANCE (REPEAT RX) 08/31/2012 V25.49 CON TRACEPTION SURVEILLANCE (REPEAT RX) 08/31/2012 V25.49 CON TRACEPTION SURVEILLANCE (REPEAT RX) 08/31/2012 V25.49 CON TRACEPTION SURVEILLANCE (REPEAT RX) 08/31/2012 V25.49 CON TRACEPTION SURVEILLANCE (REPEAT RX) 08/31/2012 V25.49 CON TRACEPTION SURVEILLANCE (REPEAT RX) 08/31/2012 V25.49 CON TRACEPTION SURVEILLANCE (REPEAT RX) 08/31/2012 V25.49 CON TRACEPTION SURVEILLANCE (REPEAT RX) 08/31/2012 V25.49 CON TRACEPTION SURVEILLANCE (REPEAT RX) 08/31/2012 CATARINA COFFEY MD V25.49 CONTRACEPTION SURVEILLANCE (REPEAT RX) 08/31/2012 WALSH DO, MILTON K V25.49 CONTRACEPTION SURVEILLANCE (REPEAT RX) 08/31/2012 NICO BETTS [place] K V25.49 CONTRACEPTION SURVEILLANCE (REPEAT RX) 08/31/2012 RONDA MCPHERSON MD V25. 49 CONTRACEPTION SURVEILLANCE (REPEAT RX) 08/31/2012 RONDA MCPHERSON MD V25. 49 CONTRACEPTION SURVEILLANCE (REPEAT RX) 08/31/2012 LEONILA ABDULLAHI APRNRICIA R V25.49 CONTRACEPTION SURVEILLANCE (REPEAT RX) 08/31/2012 KAYLEN PALACIOS SHUN R V25.49 CONTRACEPTION SURVEILLANCE (REPEAT RX) 08/31/2012 GIOVANNI PALACIOS, PALOMA A V25.49 CONTRACEPTION SURVEILLANCE (REPEAT RX) 08/31/2012 GIOVANNI PALACIOS, PALOMA A V25.49 CONTRACEPTION SURVEILLANCE (REPEAT RX) 08/31/2012 RONDA MCPHERSON MD V25. 49 CONTRACEPTION SURVEILLANCE (REPEAT RX) 08/31/2012 CATARINA COFFEY MD V25.49 CONTRACEPTION SURVEILLANCE (REPEAT RX) 08/31/2012 NICO BETTS [place] K V25.49 CONTRACEPTION SURVEILLANCE (REPEAT RX) 08/31/2012 AYDIN WALSH DOA K V25.49 CONTRACEPTION SURVEILLANCE (REPEAT RX) 08/31/2012 AYDIN WALSH DOA K V25.49 CONTRACEPTION SURVEILLANCE (REPEAT RX) 08/31/2012 JEANNE JUDD APRNYL A V25.49 CONTRACEPTION SURVEILLANCE (REPEAT RX) 08/31/2012 JEANNE JUDD APRNYL A V25.49 CONTRACEPTION SURVEILLANCE (REPEAT RX) 08/31/2012 RONDA MCPHERSON MD V25. 49 CONTRACEPTION SURVEILLANCE (REPEAT RX) 08/31/2012 WENDI MAR APRNINA Buck V25.49 CONTRACEPTION SURVEILLANCE (REPEAT RX) 08/31/2012 RONDA MCPHERSON MD V25. 49 CONTRACEPTION SURVEILLANCE (REPEAT RX) 08/31/2012 CATARINA COFFEY MD V25.49 CONTRACEPTION SURVEILLANCE (REPEAT RX) 08/31/2012 RONDA MCPHERSON MD V25. 49 CONTRACEPTION SURVEILLANCE (REPEAT RX) 08/31/2012 CATARINA COFFEY MD V25.49 CONTRACEPTION SURVEILLANCE (REPEAT RX) 08/31/2012 PALOMA DAVILA APRN A V25.49 CONTRACEPTION SURVEILLANCE (REPEAT RX) 08/31/2012 MILTON WALSH DO K V25.49 CONTRACEPTION SURVEILLANCE (REPEAT RX) 09/05/2012 465.9 UPPE R RESPIRATORY INFECTION 09/05/2012 465.9 UPPE R RESPIRATORY INFECTION 09/05/2012 465.9 UPPE R RESPIRATORY INFECTION 09/05/2012 465.9 UPPE R RESPIRATORY INFECTION 09/05/2012 465.9 UPPE R RESPIRATORY INFECTION 09/05/2012 465.9 UPPE R RESPIRATORY INFECTION 09/05/2012 465.9 UPPE R RESPIRATORY INFECTION 09/05/2012 465.9 UPPE R RESPIRATORY INFECTION 09/05/2012 465.9 UPPE R RESPIRATORY INFECTION 09/05/2012 CATARINA COFFEY MD 465.9 UPPER RESPIRATORY INFECTION 09/05/2012 WALSH DO, MILTON K 465.9 UPPER RESPIRATORY INFECTION 09/05/2012 WALSH DO, MILTON K 465.9 UPPER RESPIRATORY INFECTION 09/05/2012 RONDA MCPHERSON MD 465. 9 UPPER RESPIRATORY INFECTION 09/05/2012 RONDA MCPHERSON MD 465. 9 UPPER RESPIRATORY INFECTION 09/05/2012 ABDULLAHI [employer]NSH[employer], SHUN R 465.9 UPPER RESPIRATORY INFECTION 09/05/2012 ABDULLAHI PHILIP, SHUN R 465.9 UPPER RESPIRATORY INFECTION 09/05/2012 GIOVANNI [employer], PALOMA A 46 5.9 UPPER RESPIRATORY INFECTION 09/05/2012 GIOVANNI [employer], PALOMA A 46 5.9 UPPER RESPIRATORY INFECTION 09/05/2012 RONDA MCPHERSON MD 465. 9 UPPER RESPIRATORY INFECTION 09/05/2012 CATARINA COFFEY MD 465.9 UPPER RESPIRATORY INFECTION 09/05/2012 WALSH DO, MILTON K 465.9 UPPER RESPIRATORY INFECTION 09/05/2012 WALSH DO, MILTON K 465.9 UPPER RESPIRATORY INFECTION 09/05/2012 WALSH DO, MILTON K 465.9 UPPER RESPIRATORY INFECTION 09/05/2012 BINTA PALACIOS, PILAR A 465.9 UPPER RESPIRATORY INFECTION 09/05/2012 BINTA PALACIOS, PILAR A 465.9 UPPER RESPIRATORY INFECTION 09/05/2012 RONDA MCPHERSON MD 465. 9 UPPER RESPIRATORY INFECTION 09/05/2012 ISABELA PALACOIS NORM R 465.9 UPPER RESPIRATORY INFECTION 09/05/2012 RONDA MCPHERSON MD 465. 9 UPPER RESPIRATORY INFECTION 09/05/2012 CATARINA COFFEY MD 465.9 UPPER RESPIRATORY INFECTION 09/05/2012 RONDA MCPHERSON MD 465. 9 UPPER RESPIRATORY INFECTION 09/05/2012 CATARINA COFFEY MD 465.9 UPPER RESPIRATORY INFECTION 09/05/2012 PALOMA DAVILA APRN A 46 5.9 UPPER RESPIRATORY INFECTION 09/05/2012 MILTON WALSH DO 465.9 UPPER RESPIRATORY INFECTION 09/15/2012 493.81 EXE RCISE-INDUCED BRONCHOSPASM 09/15/2012 493.81 EXE RCISE-INDUCED BRONCHOSPASM 09/15/2012 493.81 EXE RCISE-INDUCED BRONCHOSPASM 09/15/2012 493.81 EXE RCISE-INDUCED BRONCHOSPASM 09/15/2012 493.81 EXE RCISE-INDUCED BRONCHOSPASM 09/15/2012 493.81 EXE RCISE-INDUCED BRONCHOSPASM 09/15/2012 493.81 EXE RCISE-INDUCED BRONCHOSPASM 09/15/2012 493.81 EXE RCISE-INDUCED BRONCHOSPASM 09/15/2012 CATARINA COFFEY MD 493.81 EXERCISE-INDUCED BRONCHOSPASM 09/15/2012 MILTON WALSH DO 493.81 EXERCISE-INDUCED BRONCHOSPASM 09/15/2012 MILTON WALSH DO K 493.81 EXERCISE-INDUCED BRONCHOSPASM 09/15/2012 RONDA MCPHERSON MD 493. 81 EXERCISE-INDUCED BRONCHOSPASM 09/15/2012 RONDA MCPHERSON MD 493. 81 EXERCISE-INDUCED BRONCHOSPASM 09/15/2012 SHUN ABDULLAHI APRN R 493.81 EXERCISE-INDUCED BRONCHOSPASM 09/15/2012 SHUN ABDULLAHI APRN R 493.81 EXERCISE-INDUCED BRONCHOSPASM 09/15/2012 PALOMA DAVILA APRN A 493.81 EXERCISE-INDUCED BRONCHOSPASM 09/15/2012 PALOMA DAVILA APRN A 493.81 EXERCISE-INDUCED BRONCHOSPASM 09/15/2012 RONDA MCPHERSON MD 493. 81 EXERCISE-INDUCED BRONCHOSPASM 09/15/2012 CATARINA COFFEY MD 493.81 EXERCISE-INDUCED BRONCHOSPASM 09/15/2012 MILTON WALSH DO K 493.81 EXERCISE-INDUCED BRONCHOSPASM 09/15/2012 AYDIN WALSH DOA K 493.81 EXERCISE-INDUCED BRONCHOSPASM 09/15/2012 AYDIN WALSH DOA K 493.81 EXERCISE-INDUCED BRONCHOSPASM 09/15/2012 JEANNE JUDD APRNYL A 493.81 EXERCISE-INDUCED BRONCHOSPASM 09/15/2012 BINTA PALACIOS PILAR A 493.81 EXERCISE-INDUCED BRONCHOSPASM 09/15/2012 RONDA MCPHERSON MD 493. 81 EXERCISE-INDUCED BRONCHOSPASM 09/15/2012 ISABELA [employer]NSH[employer], NORM R 493.81 EXERCISE-INDUCED BRONCHOSPASM 09/15/2012 RONDA MCPHERSON MD 493. 81 EXERCISE-INDUCED BRONCHOSPASM 09/15/2012 CATARINA COFFEY MD 493.81 EXERCISE-INDUCED BRONCHOSPASM 09/15/2012 RONDA MCPHERSON MD 493. 81 EXERCISE-INDUCED BRONCHOSPASM 09/15/2012 CATARINA COFFEY MD 493.81 EXERCISE-INDUCED BRONCHOSPASM 09/15/2012 GIOVANNI [employer]NSH[employer], PALOMA A 493.81 EXERCISE-INDUCED BRONCHOSPASM 09/15/2012 NICO BETTS MILTON K 493.81 EXERCISE-INDUCED BRONCHOSPASM 10/12/2012 493.90 AST HMA UNSPECIFIED 10/12/2012 493.90 AST HMA UNSPECIFIED 10/12/2012 493.90 AST HMA UNSPECIFIED 10/12/2012 493.90 AST HMA UNSPECIFIED 10/12/2012 493.90 AST HMA UNSPECIFIED 10/12/2012 493.90 AST HMA UNSPECIFIED 10/12/2012 493.90 AST HMA UNSPECIFIED 10/12/2012 CATARINA COFFEY MD 493.90 ASTHMA UNSPECIFIED 10/12/2012 NICO BETTS MIL[place] K 493.90 ASTHMA UNSPECIFIED 10/12/2012 NICO BETTS [place] K 493.90 ASTHMA UNSPECIFIED 10/12/2012 RONDA MCPHERSON MD 493. 90 ASTHMA UNSPECIFIED 10/12/2012 RONDA MCPHERSON MD 493. 90 ASTHMA UNSPECIFIED 10/12/2012 KOBE ABDULLAHI APRNIA R 493.90 ASTHMA UNSPECIFIED 10/12/2012 LEONILA ABDULLAHI APRNRICIA R 493.90 ASTHMA UNSPECIFIED 10/12/2012 PALOMA DAVILA APRN A 493.90 ASTHMA UNSPECIFIED 10/12/2012 GIOVANNI PALACIOS PALOMA A 493.90 ASTHMA UNSPECIFIED 10/12/2012 RONDA MCPHERSON MD 493. 90 ASTHMA UNSPECIFIED 10/12/2012 CATARINA COFFEY MD 493.90 ASTHMA UNSPECIFIED 10/12/2012 NICO BETTS MIL[place] K 493.90 ASTHMA UNSPECIFIED 10/12/2012 WALSH DO MILTON K 493.90 ASTHMA UNSPECIFIED 10/12/2012 WALSH DO MILTON K 493.90 ASTHMA UNSPECIFIED 10/12/2012 JEANNE JUDD APRNYL A 493.90 ASTHMA UNSPECIFIED 10/12/2012 JEANNE JUDD APRNYL A 493.90 ASTHMA UNSPECIFIED 10/12/2012 VIDA VICENTE, RONDA 493. 90 ASTHMA UNSPECIFIED 10/12/2012 NORM MAR APRN 493.90 ASTHMA UNSPECIFIED 10/12/2012 VIDA VICENTE, RONDA 493. 90 ASTHMA UNSPECIFIED 10/12/2012 CATARINA COFFEY MD 493.90 ASTHMA UNSPECIFIED 10/12/2012 VIDA VICENTE, RONDA 493. 90 ASTHMA UNSPECIFIED 10/12/2012 ERLINDA VICENTE, CATARINA 493.90 ASTHMA UNSPECIFIED 10/12/2012 GIOVANNI PALACIOS, PALOMA A 493.90 ASTHMA UNSPECIFIED 10/12/2012 MILTON WALSH DO 493.90 ASTHMA UNSPECIFIED 10/13/2012 845.03 SPR AIN LAT ANKLE 10/13/2012 845.10 SPR AIN/STRAIN FOOT 10/13/2012 845.03 SPR AIN LAT ANKLE 10/13/2012 845.10 SPR AIN/STRAIN FOOT 10/13/2012 845.03 SPR AIN LAT ANKLE 10/13/2012 845.10 SPR AIN/STRAIN FOOT 10/13/2012 845.03 SPR AIN LAT ANKLE 10/13/2012 845.10 SPR AIN/STRAIN FOOT 10/13/2012 845.03 SPR AIN LAT ANKLE 10/13/2012 845.10 SPR AIN/STRAIN FOOT 10/13/2012 845.03 SPR AIN LAT ANKLE 10/13/2012 845.10 SPR AIN/STRAIN FOOT 10/13/2012 CATARINA COFFEY MD 845.03 SPRAIN LAT ANKLE 10/13/2012 CATARINA COFFEY MD 845.10 SPRAIN/STRAIN FOOT 10/13/2012 MILTON WALSH DO 845.03 SPRAIN LAT ANKLE 10/13/2012 MILTON WALSH DO 845.10 SPRAIN/STRAIN FOOT 10/13/2012 MILTON WALSH DO 845.03 SPRAIN LAT ANKLE 10/13/2012 MILTON WALSH DO 845.10 SPRAIN/STRAIN FOOT 10/13/2012 RONDA MCPHERSON MD 845. 03 SPRAIN LAT ANKLE 10/13/2012 VIDA VICENTE RONDA 845. 10 SPRAIN/STRAIN FOOT 10/13/2012 VIDA VICENTE, RONDA 845. 03 SPRAIN LAT ANKLE 10/13/2012 VIDA VICENTE, RONDA 845. 10 SPRAIN/STRAIN FOOT 10/13/2012 KAYLEN PALACIOS, SHUN R 845.03 SPRAIN LAT ANKLE 10/13/2012 KAYLEN PALACIOS, SHUN R 845.10 SPRAIN/STRAIN FOOT 10/13/2012 KAYLEN PALACIOS SHUN R 845.03 SPRAIN LAT ANKLE 10/13/2012 KAYLEN PALACIOS SHUN R 845.10 SPRAIN/STRAIN FOOT 10/13/2012 GIOVANNI PALACIOS PALOMA A 845.03 SPRAIN LAT ANKLE 10/13/2012 GIOVANNI PALACIOS PALOMA A 845.10 SPRAIN/STRAIN FOOT 10/13/2012 GIOVANNI PALACIOS PALOMA A 845.03 SPRAIN LAT ANKLE 10/13/2012 GIOVANNI PALACIOS PALOMA A 845.10 SPRAIN/STRAIN FOOT 10/13/2012 VIDA VICENTE, RONDA 845. 03 SPRAIN LAT ANKLE 10/13/2012 VIDA VICENTE, RONDA 845. 10 SPRAIN/STRAIN FOOT 10/13/2012 CATARINA COFFEY MD 845.03 SPRAIN LAT ANKLE 10/13/2012 CATARINA COFFEY MD 845.10 SPRAIN/STRAIN FOOT 10/13/2012 WALSH DO, MILTON K 845.03 SPRAIN LAT ANKLE 10/13/2012 WALSH DO, MILTON K 845.10 SPRAIN/STRAIN FOOT 10/13/2012 WALSH DO, MILTON K 845.03 SPRAIN LAT ANKLE 10/13/2012 WALSH DO, MILTON K 845.10 SPRAIN/STRAIN FOOT 10/13/2012 WALSH DO, MILTON K 845.03 SPRAIN LAT ANKLE 10/13/2012 WALSH DO, MILTON K 845.10 SPRAIN/STRAIN FOOT 10/13/2012 BINTA PALACIOS PILAR A 845.03 SPRAIN LAT ANKLE 10/13/2012 BINTA PALACIOS PILAR A 845.10 SPRAIN/STRAIN FOOT 10/13/2012 BINTA PALACIOS PILAR A 845.03 SPRAIN LAT ANKLE 10/13/2012 PILAR JUDD APRN A 845.10 SPRAIN/STRAIN FOOT 10/13/2012 VIDA VICENTE, RONDA 845. 03 SPRAIN LAT ANKLE 10/13/2012 VIDA VICENTE, RONDA 845. 10 SPRAIN/STRAIN FOOT 10/13/2012 ISABELA PALACIOS, NORM R 845.03 SPRAIN LAT ANKLE 10/13/2012 ISABELA PALACIOS, NORM R 845.10 SPRAIN/STRAIN FOOT 10/13/2012 VIDA VICENTE, RONDA 845. 03 SPRAIN LAT ANKLE 10/13/2012 VIDA VICENTE, RONDA 845. 10 SPRAIN/STRAIN FOOT 10/13/2012 ERLINDA VICENTE, CATARINA 845.03 SPRAIN LAT ANKLE 10/13/2012 ERLINDA VICENTE, CATARINA 845.10 SPRAIN/STRAIN FOOT 10/13/2012 VIDA VICENTE, RONDA 845. 03 SPRAIN LAT ANKLE 10/13/2012 VIDA VICENTE, RONDA 845. 10 SPRAIN/STRAIN FOOT 10/13/2012 ERLINDA VICENTE, CATARINA 845.03 SPRAIN LAT ANKLE 10/13/2012 ERLINDA VICENTE, CATARINA 845.10 SPRAIN/STRAIN FOOT 10/13/2012 PALOMA DAVILA APRN A 845.03 SPRAIN LAT ANKLE 10/13/2012 PALOMA DAVILA APRN A 845.10 SPRAIN/STRAIN FOOT 10/13/2012 MILTON WALSH DO 845.03 SPRAIN LAT ANKLE 10/13/2012 MILTON WALSH DO 845.10 SPRAIN/STRAIN FOOT 11/23/2012 V25.9 CONT RACEPTION MANAGEMENT 11/23/2012 V25.9 CONT RACEPTION MANAGEMENT 11/23/2012 V25.9 CONT RACEPTION MANAGEMENT 11/23/2012 V25.9 CONT RACEPTION MANAGEMENT 11/23/2012 V25.9 CONT RACEPTION MANAGEMENT 11/23/2012 CATARINA COFFEY MD V25.9 CONTRACEPTION MANAGEMENT 11/23/2012 MILTON WALSH DO V25.9 CONTRACEPTION MANAGEMENT 11/23/2012 MILTON WALSH DO V25.9 CONTRACEPTION MANAGEMENT 11/23/2012 RONDA MCPHERSON MD V25. 9 CONTRACEPTION MANAGEMENT 11/23/2012 RONDA MCPHERSON MD V25. 9 CONTRACEPTION MANAGEMENT 11/23/2012 KAYLEN PALACIOS, SHUN R V25.9 CONTRACEPTION MANAGEMENT 11/23/2012 KAYLEN PALACIOS, SHUN R V25.9 CONTRACEPTION MANAGEMENT 11/23/2012 [employer], PALOMA A V2 5.9 CONTRACEPTION MANAGEMENT 11/23/2012 GIOVANNI BROWNN, PALOMA A V2 5.9 CONTRACEPTION MANAGEMENT 11/23/2012 RONDA MCPHERSON MD V25. 9 CONTRACEPTION MANAGEMENT 11/23/2012 CATARINA COFFEY MD V25.9 CONTRACEPTION MANAGEMENT 11/23/2012 WALSH DO, MILTON K V25.9 CONTRACEPTION MANAGEMENT 11/23/2012 WALSH DO, MILTON K V25.9 CONTRACEPTION MANAGEMENT 11/23/2012 WALSH DO, MILTON K V25.9 CONTRACEPTION MANAGEMENT 11/23/2012 BINTA PALACIOS PILAR A V25.9 CONTRACEPTION MANAGEMENT 11/23/2012 BINTA PALACIOS PILAR A V25.9 CONTRACEPTION MANAGEMENT 11/23/2012 RONDA MCPHERSON MD V25. 9 CONTRACEPTION MANAGEMENT 11/23/2012 ISABELA PALACIOS NORM R V25.9 CONTRACEPTION MANAGEMENT 11/23/2012 RONDA MCPHERSON MD V25. 9 CONTRACEPTION MANAGEMENT 11/23/2012 CATARINA COFFEY MD V25.9 CONTRACEPTION MANAGEMENT 11/23/2012 RONDA MCPHERSON MD V25. 9 CONTRACEPTION MANAGEMENT 11/23/2012 CATARINA COFFEY MD V25.9 CONTRACEPTION MANAGEMENT 11/23/2012 GIOVANNI PALACIOS, PALOMA A V2 5.9 CONTRACEPTION MANAGEMENT 11/23/2012 NICO BETTS, MILTON K V25.9 CONTRACEPTION MANAGEMENT 01/13/2013 473.9 UNSP ECIFIED SINUSITIS (CHRONIC) 01/13/2013 473.9 UNSP ECIFIED SINUSITIS (CHRONIC) 01/13/2013 CATARINA COFFEY MD 473.9 UNSPECIFIED SINUSITIS (CHRONIC) 01/13/2013 NICO BETTS MILTON K 473.9 UNSPECIFIED SINUSITIS (CHRONIC) 01/13/2013 WALSH DO MILTON K 473.9 UNSPECIFIED SINUSITIS (CHRONIC) 01/13/2013 RONDA MCPHERSON MD 473. 9 UNSPECIFIED SINUSITIS (CHRONIC) 01/13/2013 RONDA MCPHERSON MD 473. 9 UNSPECIFIED SINUSITIS (CHRONIC) 01/13/2013 [employer]BD[employer], SHUN R 473.9 UNSPECIFIED SINUSITIS (CHRONIC) 01/13/2013 KAYLEN BROWNN, SHUN R 473.9 UNSPECIFIED SINUSITIS (CHRONIC) 01/13/2013 [employer], PALOMA A 47 3.9 UNSPECIFIED SINUSITIS (CHRONIC) 01/13/2013 [employer], PALOMA A 47 3.9 UNSPECIFIED SINUSITIS (CHRONIC) 01/13/2013 RONDA MCPHERSON MD 473. 9 UNSPECIFIED SINUSITIS (CHRONIC) 01/13/2013 CATARINA COFFEY MD 473.9 UNSPECIFIED SINUSITIS (CHRONIC) 01/13/2013 NICO BETTS MILTON K 473.9 UNSPECIFIED SINUSITIS (CHRONIC) 01/13/2013 WALSH DO MILTON K 473.9 UNSPECIFIED SINUSITIS (CHRONIC) 01/13/2013 NICO BETTS MILTON K 473.9 UNSPECIFIED SINUSITIS (CHRONIC) 01/13/2013 BINTA PALACIOS PILAR A 473.9 UNSPECIFIED SINUSITIS (CHRONIC) 01/13/2013 BINTA PALACIOS PILAR A 473.9 UNSPECIFIED SINUSITIS (CHRONIC) 01/13/2013 RONDA MCPHERSON MD 473. 9 UNSPECIFIED SINUSITIS (CHRONIC) 01/13/2013 ISABELA PALACIOS NORM R 473.9 UNSPECIFIED SINUSITIS (CHRONIC) 01/13/2013 RONDA MCPHERSON MD 473. 9 UNSPECIFIED SINUSITIS (CHRONIC) 01/13/2013 CATARINA COFFEY MD 473.9 UNSPECIFIED SINUSITIS (CHRONIC) 01/13/2013 RONDA MCPHERSON MD 473. 9 UNSPECIFIED SINUSITIS (CHRONIC) 01/13/2013 CATARINA COFFEY MD 473.9 UNSPECIFIED SINUSITIS (CHRONIC) 01/13/2013 GIOVANNI PALACIOS, PALOMA A 47 3.9 UNSPECIFIED SINUSITIS (CHRONIC) 01/13/2013 NICO BETTS MILTON K 473.9 UNSPECIFIED SINUSITIS (CHRONIC) 05/11/2013 NICO BETTS MILTON K 729.5 PAIN- HAND 05/11/2013 VIDA VICENTE, RONDA 729. 5 PAIN- HAND 05/11/2013 RONDA MCPHERSON MD 729. 5 PAIN- HAND 05/11/2013 SHUN ABDULLAHI APRN R 729.5 PAIN- HAND 05/11/2013 [employer], SHUN R 729.5 PAIN- HAND 05/11/2013 [employer], PALOMA A 72 9.5 PAIN- HAND 05/11/2013 [employer], PALOMA A 72 9.5 PAIN- HAND 05/11/2013 VIDA VICENTE, RONDA 729. 5 PAIN- HAND 05/11/2013 ERLINDA VICENTE, CATARINA 729.5 PAIN- HAND 05/11/2013 WALSH DO, MILTON K 729.5 PAIN- HAND 05/11/2013 WALSH DO, MILTON K 729.5 PAIN- HAND 05/11/2013 WALSH DO, MILTON K 729.5 PAIN- HAND 05/11/2013 [employer], PILAR A 729.5 PAIN- HAND 05/11/2013 RAJOTTE PHILIP, PILAR A 729.5 PAIN- HAND 05/11/2013 VIDA VICENTE, RONDA 729. 5 PAIN- HAND 05/11/2013 ISABELA PALACIOS NORM R 729.5 PAIN- HAND 05/11/2013 VIDA VICENTE, RONDA 729. 5 PAIN- HAND 05/11/2013 ERLINDA VICENTE, CATARINA 729.5 PAIN- HAND 05/11/2013 VIDA VICENTE, RONDA 729. 5 PAIN- HAND 05/11/2013 ERLINDA VICENTE, CATARINA 729.5 PAIN- HAND 05/11/2013 [employer], PALOMA A 72 9.5 PAIN- HAND 05/11/2013 WALSH DO, MILTON K 729.5 PAIN- HAND 06/23/2013 VIDA VICENTE, RONDA 462 ACUTE PHARYNGITIS 06/23/2013 SHUN ABDULLAHI APRN R 462 ACUTE PHARYNGITIS 06/23/2013 LEONILA ABDULLAHI APRNRICIA R 462 ACUTE PHARYNGITIS 06/23/2013 GIOVANNI PALACIOS, PALOMA A 46 2 ACUTE PHARYNGITIS 06/23/2013 GIOVANNI PALACIOS, PALOMA A 46 2 ACUTE PHARYNGITIS 06/23/2013 VIDA VICENTE, RONDA 462 ACUTE PHARYNGITIS 06/23/2013 ERLINDA VICENTE, CATARINA 462 ACUTE PHARYNGITIS 06/23/2013 WALSH DO, MILTON K 462 ACUTE PHARYNGITIS 06/23/2013 WALSH DO, MILTON K 462 ACUTE PHARYNGITIS 06/23/2013 WALSH DO, MILTON K 462 ACUTE PHARYNGITIS 06/23/2013 BINTA PALACIOS PILAR A 462 ACUTE PHARYNGITIS 06/23/2013 BINTA PALACIOS, PILAR A 462 ACUTE PHARYNGITIS 06/23/2013 VIDA VICENTE, RONDA 462 ACUTE PHARYNGITIS 06/23/2013 NORM MAR APRN 4 62 ACUTE PHARYNGITIS 06/23/2013 VIDA VICENTE, RONDA 462 ACUTE PHARYNGITIS 06/23/2013 ERLINDA VICENTE, CATARINA 462 ACUTE PHARYNGITIS 06/23/2013 VIDA VICENTE, RONDA 462 ACUTE PHARYNGITIS 06/23/2013 ERLINDA VICENTE, CATARINA 462 ACUTE PHARYNGITIS 06/23/2013 GIOVANNI PALACIOS PALOMA A 46 2 ACUTE PHARYNGITIS 06/23/2013 NICO BETTS, MILTON K 462 ACUTE PHARYNGITIS 07/24/2013 KAYLEN PALACIOS, SHUN R V04.81 FLU SHOT 07/24/2013 KAYLEN PALACIOS SHUN R V04.81 FLU SHOT 07/24/2013 GIOVANNI PALACIOS, PALOMA A V04.81 FLU SHOT 07/24/2013 GIOVANNI PALACIOS, PALOMA A V04.81 FLU SHOT 07/24/2013 VIDA VICENTE, RONDA V04. 81 FLU SHOT 07/24/2013 ERLINDA VICENTE, CATARINA V04.81 FLU SHOT 07/24/2013 WALSH DO, MILTON K V04.81 FLU SHOT 07/24/2013 WALSH DO, MILTON K V04.81 FLU SHOT 07/24/2013 WALSH DO, MILTON K V04.81 FLU SHOT 07/24/2013 [employer]TA [employer], PILAR A V04.81 FLU SHOT 07/24/2013 BINTA PALACIOS, PILAR A V04.81 FLU SHOT 07/24/2013 VIDA VICENTE, RONDA V04. 81 FLU SHOT 07/24/2013 NORM MAR APRN R V04.81 FLU SHOT 07/24/2013 VIDA VICENTE, RONDA V04. 81 FLU SHOT 07/24/2013 ERLINDA VICENTE, CATARINA V04.81 FLU SHOT 07/24/2013 VIDA VICENTE, RONDA V04. 81 FLU SHOT 07/24/2013 ERLINDA VICENTE, CATARINA V04.81 FLU SHOT 07/24/2013 PALOMA DAVILA APRN A V04.81 FLU SHOT 07/24/2013 WALSH DO, MILTON K V04.81 FLU SHOT 10/31/2013 VIDA VICENTE, RONDA V20. 2 WELL CHILD 10/31/2013 ERLINDA VICENTE, CATARINA V20.2 WELL CHILD 10/31/2013 WALSH DO, MILTON K V20.2 WELL CHILD 10/31/2013 WALSH DO, MILTON K V20.2 WELL CHILD 10/31/2013 WALSH DO, MILTON K V20.2 WELL CHILD 10/31/2013 JEANNE JUDD APRNYL A V20.2 WELL CHILD 10/31/2013 BINTA PALACIOS, PILAR A V20.2 WELL CHILD 10/31/2013 VIDA VICENTE, RONDA V20. 2 WELL CHILD 10/31/2013 NORM MAR APRN R V20.2 WELL CHILD 10/31/2013 VIDA VICENTE, RONDA V20. 2 WELL CHILD 10/31/2013 ERLINDA VICENTE, CATARINA V20.2 WELL CHILD 10/31/2013 VIDA VICENTE, RONDA V20. 2 WELL CHILD 10/31/2013 ERLINDA VICENTE, CATARINA V20.2 WELL CHILD 10/31/2013 GIOVANNI PALACIOS, PALOMA A V2 0.2 WELL CHILD 10/31/2013 WALSH DO, MILTON K V20.2 WELL CHILD 03/20/2014 WALSH , MILTON K 786.2 COUGH 03/20/2014 WALSH , MILTON K 786.2 COUGH 03/20/2014 BINTA PALACIOS PILAR A 786.2 COUGH 03/20/2014 BINTA PALACIOS PILAR A 786.2 COUGH 03/20/2014 VIDA VICENTE, RONDA 786. 2 COUGH 03/20/2014 ISABELA PALACIOS NORM R 786.2 COUGH 03/20/2014 VIDA VICENTE, RONDA 786. 2 COUGH 03/20/2014 ERLINDA VICENTE, CATARINA 786.2 COUGH 03/20/2014 VIDA VICENTE, RONDA 786. 2 COUGH 03/20/2014 ERLINDA VICENTE, CATARINA 786.2 COUGH 03/20/2014 GIOVNANI [employer], PALOMA A 78 6.2 COUGH 03/20/2014 WALSH DO, MILTON K 786.2 COUGH 05/08/2014 [employer], PILAR A E849.0 HOME ACCIDENTS 05/08/2014 [employer], PILAR A E917.4 STRIKING AGAINST OR STRUCK ACCIDENTALLY BY OTHER STATIONARY OBJECT WITHOUT SUBSEQUENT FALL 05/08/2014 [employer], PILAR A E849.0 HOME ACCIDENTS 05/08/2014 [employer], PILAR A E917.4 STRIKING AGAINST OR STRUCK ACCIDENTALLY BY OTHER STATIONARY OBJECT WITHOUT SUBSEQUENT FALL 05/08/2014 RONDA MCPHERSON MD E849 .0 HOME ACCIDENTS 05/08/2014 RONDA MCPHERSON MD E917 .4 STRIKING AGAINST OR STRUCK ACCIDENTALLY BY OTHER STATIONARY OBJECT WITHOUT SUBSEQUENT FALL 05/08/2014 ISABELA [employer], NORM R E849.0 HOME ACCIDENTS 05/08/2014 ISABELA [employer], NORM R E917.4 STRIKING AGAINST OR STRUCK ACCIDENTALLY BY OTHER STATIONARY OBJECT WITHOUT SUBSEQUENT FALL 05/08/2014 RONDA MCPHERSON MD E849 .0 HOME ACCIDENTS 05/08/2014 RONDA MCPHERSON MD E917 .4 STRIKING AGAINST OR STRUCK ACCIDENTALLY BY OTHER STATIONARY OBJECT WITHOUT SUBSEQUENT FALL 05/08/2014 CATARINA COFFEY MD E849.0 HOME ACCIDENTS 05/08/2014 CATARINA COFFEY MD E917.4 STRIKING AGAINST OR STRUCK ACCIDENTALLY BY OTHER STATIONARY OBJECT WITHOUT SUBSEQUENT FALL 05/08/2014 RONDA MCPHERSON MD E849 .0 HOME ACCIDENTS 05/08/2014 RONDA MCPHERSON MD E917 .4 STRIKING AGAINST OR STRUCK ACCIDENTALLY BY OTHER STATIONARY OBJECT WITHOUT SUBSEQUENT FALL 05/08/2014 CATARINA COFFEY MD E849.0 HOME ACCIDENTS 05/08/2014 CATARINA COFFEY MD E917.4 STRIKING AGAINST OR STRUCK ACCIDENTALLY BY OTHER STATIONARY OBJECT WITHOUT SUBSEQUENT FALL 05/08/2014 GIOVANNI [employer], PALOMA A E849.0 HOME ACCIDENTS 05/08/2014 GIOV[employer]NI [employer], PALOMA A E917.4 STRIKING AGAINST OR STRUCK ACCIDENTALLY BY OTHER STATIONARY OBJECT WITHOUT SUBSEQUENT FALL 05/08/2014 WALSH DO, MILTON K E849.0 HOME ACCIDENTS 05/08/2014 WALSH DO, MILTON K E917.4 STRIKING AGAINST OR STRUCK ACCIDENTALLY BY OTHER STATIONARY OBJECT WITHOUT SUBSEQUENT FALL 06/13/2014 VIDA VICENTE, RONDA 054. 9 HERPES SIMPLEX WITHOUT COMPLICATION 06/13/2014 ISABELA PALACIOS, NORM R 054.9 HERPES SIMPLEX WITHOUT COMPLICATION 06/13/2014 VIDA VICENTE, RONDA 054. 9 HERPES SIMPLEX WITHOUT COMPLICATION 06/13/2014 ERLINDA VICENTE, CATARINA 054.9 HERPES SIMPLEX WITHOUT COMPLICATION 06/13/2014 VIDA VICENTE, RONDA 054. 9 HERPES SIMPLEX WITHOUT COMPLICATION 06/13/2014 ERLINDA VICENTE, CATARINA 054.9 HERPES SIMPLEX WITHOUT COMPLICATION 06/13/2014 GIOVANNI PALACIOS, PALOMA A 05 4.9 HERPES SIMPLEX WITHOUT COMPLICATION 06/13/2014 NICO DO, MILTON K 054.9 HERPES SIMPLEX WITHOUT COMPLICATION 06/26/2014 ISABELA PALACIOS, NORM R 784.0 HEADACHE 06/26/2014 ISABELA PALACIOS, NORM R 787.02 NAUSEA ALONE 06/26/2014 RADHA MCPHERSON MDISTA 784. 0 HEADACHE 06/26/2014 RADHA MCPHERSON MDISTA 787. 02 NAUSEA ALONE 06/26/2014 ERLINDA VICENTE, CATARINA 784.0 HEADACHE 06/26/2014 ERLINDA VICENTE, CATARINA 787.02 NAUSEA ALONE 06/26/2014 VIDA VICENTE, RONDA 784. 0 HEADACHE 06/26/2014 VIDA VICENTE, RONDA 787. 02 NAUSEA ALONE 06/26/2014 ERLINDA VICENTE, CATARINA 784.0 HEADACHE 06/26/2014 CATARINA COFFEY MD 787.02 NAUSEA ALONE 06/26/2014 GIOVANNI PALACIOS PALOMA A 78 4.0 HEADACHE 06/26/2014 EMILIANO DAVILA APRNIDI A 787.02 NAUSEA ALONE 06/26/2014 WALSH DO, MILTON K 784.0 HEADACHE 06/26/2014 WALSH DO, MILTON K 787.02 NAUSEA ALONE 07/05/2014 RONDA MCPHERSON MD 789. 09 ABDOMINAL PAIN OTHER SPECIFIED SITE 07/05/2014 CATARINA COFFEY MD 789.09 ABDOMINAL PAIN OTHER SPECIFIED SITE 07/05/2014 RONDA MCPHERSON MD 789. 09 ABDOMINAL PAIN OTHER SPECIFIED SITE 07/05/2014 CATARINA COFFEY MD 789.09 ABDOMINAL PAIN OTHER SPECIFIED SITE 07/05/2014 PALOMA DAVILA APRN A 789.09 ABDOMINAL PAIN OTHER SPECIFIED SITE 07/05/2014 WALSH MILTON BETTS K 789.09 ABDOMINAL PAIN OTHER SPECIFIED SITE 07/06/2014 Ot 719.46 07/06/2014 NIKC JEONG Ot 729.5 07/06/2014 WILTON SIM Ot 599.0 URIN TRACT INFECTION NOS 07/06/2014 WILTON SIM Ot 724.5 BACKACHE NOS 07/06/2014 WILTON SIM L Ot 788.0 RENAL COLIC 07/10/2014 ERLINDA VICENTE, CATARINA 599.0 URINARY TRACT INFECTION 07/10/2014 ERLINDA VICENTE, CATARINA 787.01 NAUSEA WITH VOMITING 07/10/2014 IVDA VICENTE, RONDA 599. 0 URINARY TRACT INFECTION 07/10/2014 RONDA MCPHERSON MD 787. 01 NAUSEA WITH VOMITING 07/10/2014 ERLINDA VICENTE, CATARINA 599.0 URINARY TRACT INFECTION 07/10/2014 CATARINA COFFEY MD 787.01 NAUSEA WITH VOMITING 07/10/2014 PALOMA DAVILA APRN A 59 9.0 URINARY TRACT INFECTION 07/10/2014 PALOMA DAVILA APRN A 787.01 NAUSEA WITH VOMITING 07/10/2014 WALSH AYDIN BETTSA K 599.0 URINARY TRACT INFECTION 07/10/2014 WALSH AYDIN BETTSA K 787.01 NAUSEA WITH VOMITING 07/10/2014 Ot 719.46 07/10/2014 NICK JEONG Ot 729.5 07/11/2014 WALTER DO, MICHELLE Ot 276.51 DEHYDRATION 07/11/2014 WALTER DO, MICHELLE Ot 590.80 PYELONEPHRITIS NOS 07/11/2014 WALTER DO, MICHELLE Ot 592.0 CALCULUS OF KIDNEY 07/11/2014 WALTER DO, MICHELLE Ot 276.51 07/11/2014 WALTER DO, MICHELLE Ot 590.80 07/11/2014 WALTER DO, MICHELLE Ot 592.0 07/17/2014 VIDA VICENTE, RONDA 592. 0 CALCULUS OF KIDNEY 07/17/2014 CATARINA COFFEY MD 592.0 CALCULUS OF KIDNEY 07/17/2014 PALOMA DAVILA APRN A 59 2.0 CALCULUS OF KIDNEY 07/17/2014 WALSH DO, MILTON K 592.0 CALCULUS OF KIDNEY 11/13/2014 WALSH DO, MILTON K 599.0 URINARY TRACT INFECTION 11/13/2014 WALSH DO, MILTON K 599.70 HEMATURIA 02/14/2015 Ot 719.46 02/14/2015 NICK JEONG Ot 729.5 02/14/2015 WILTON SIM Ot 592.1 CALCULUS OF URETER 02/14/2015 [...] Ot N39.0 11/11/2015 Ot 719.46 11/11/2015 NICK JEONG PRODUCT SUPPORT SALES REPRESENTATIVE Ot 729.5 11/21/2015 MICHELLE VICENTE, AGNES Ot N20.0 CALCULUS OF KIDNEY 11/27/2015 MICHELLE VICENTE, AGNES Ot N20.0 CALCULUS OF KIDNEY 02/21/2016 RIDGE RUIZ [employer] Ot N23 UNSPECIFIED RENAL COLIC 02/21/2016 RIDGE RUIZ APRN Ot R10.32 LEFT LOWER QUADRANT PAIN 02/21/2016 RIDGE RUIZ APRN Ot Z87.442 PERSONAL HISTORY OF URINARY CALCULI 02/24/2016 RIDGE RUIZ APRN Ot N23 UNSPECIFIED RENAL COLIC 02/24/2016 RIDGE RUIZ APRN Ot R10.32 LEFT LOWER QUADRANT PAIN 02/24/2016 RIDGE [employer] Ot Z87.442 PERSONAL HISTORY OF URINARY CALCULI 03/12/2016 JERRY VICENTE, ROBBIE Burrell Ot N20 .1 CALCULUS OF URETER 03/12/2016 JERRY VICENTE, ROBBIE Burrell Ot R10.32 LEFT LOWER QUADRANT PAIN 03/16/2016 Ot 719.46 MIKKI NT PAIN-L/LEG 03/16/2016 NICK JEONG PRODUCT SUPPORT SALES REPRESENTATIVE Ot 729.5 PAIN IN LIMB 03/16/2016 AGNES MARTINEZ MD Ot N20.0 CALCULUS OF KIDNEY 03/16/2016 AURORA RUSH MD Ot N20.2 CALCULUS OF KIDNEY WITH CALCULUS OF URET 03/16/2016 AURORA RUSH MD A Ot Z01.8 12 ENCOUNTER FOR PREPROCEDURAL LABORATORY E 03/16/2016 AURORA RUSH MD Ot Z11.2 ENCOUNTER FOR SCREENING FOR OTHER BACTER 03/17/2016 AURORA RUSH MD Ot N20.2 CALCULUS OF KIDNEY WITH CALCULUS OF URET 03/17/2016 AURORA RUSH MD A Ot Z01.8 12 ENCOUNTER FOR PREPROCEDURAL LABORATORY E 03/17/2016 AURORA RUSH MD A Ot Z11.2 ENCOUNTER FOR SCREENING FOR OTHER BACTER 03/18/2016 AURORA RUSH MD A Ot N20.1 CALCULUS OF URETER 03/19/2016 AURORA RUSH MD A Ot N20.1 CALCULUS OF URETER 03/26/2016 ROBBIE EDWARDS MD Ot N20 .1 CALCULUS OF URETER 03/26/2016 ROBBIE EDWARDS MD Ot R10.32 LEFT LOWER QUADRANT PAIN 04/15/2016 AURORA RUSH MD Ot N20.9 URINARY CALCULUS, UNSPECIFIED 06/30/2016 AURORA RUSH MD Ot N20.9 URINARY CALCULUS, UNSPECIFIED 12/08/2016 Ot 719.46 MIKKI NT PAIN-L/LEG 12/08/2016 NICK JEONG PRODUCT SUPPORT SALES REPRESENTATIVE Ot 729.5 PAIN IN LIMB 12/08/2016 AGNES MARTINEZ MD Ot N20.0 CALCULUS OF KIDNEY 12/08/2016 AURORA RUSH MD Ot N20.9 URINARY CALCULUS, UNSPECIFIED 12/08/2016 AURORA RUSH MD A Ot N20.9 URINARY CALCULUS, UNSPECIFIED 12/08/2016 SARA, POLLO PRODUCT SUPPORT SALES REPRESENTATIVE Ot S90.121A CONTUSION OF RIGHT LESSER TOE(S) W/O DAM 12/08/2016 SARA, POLLO PRODUCT SUPPORT SALES REPRESENTATIVE Ot S99.921A UNSPECIFIED INJURY OF RIGHT FOOT, INITIA 12/08/2016 SARA, POLLO [employer] SALES REPRESENTATIVE Ot W22.09XA STRIKING AGAINST OTHER STATIONARY OBJECT 12/08/2016 SARA, POLLO PRODUCT SUPPORT SALES REPRESENTATIVE Ot Y92.[address] IN [facility] NON-INSTITUT (PRIVATE 12/08/2016 SARA, POLLO PRODUCT SUPPORT SALES REPRESENTATIVE Ot Y99.8 OTHER EXTERNAL CAUSE STATUS 12/09/2016 SARA, POLLO PRODUCT SUPPORT SALES REPRESENTATIVE Ot S90.121A CONTUSION OF RIGHT LESSER TOE(S) W/O DAM 12/09/2016 SARA, POLLO [employer]ODUCT SUPPORT SALES REPRESENTATIVE Ot S99.921A UNSPECIFIED INJURY OF RIGHT FOOT, INITIA 12/09/2016 SARA, POLLO [employer] SUPPORT SALES REPRESENTATIVE Ot W22.09XA STRIKING AGAINST OTHER STATIONARY OBJECT 12/09/2016 SARA, POLLO PRODUCT SUPPORT SALES REPRESENTATIVE Ot Y92.[address] IN [facility] NON-INSTITUT (PRIVATE 12/09/2016 SARA, POLLO [employer] SUPPORT SALES REPRESENTATIVE Ot Y99.8 OTHER EXTERNAL CAUSE STATUS 12/17/2016 Ot 719.46 MIKKI NT PAIN-L/LEG 12/17/2016 NICK JEONG PRODUCT SUPPORT SALES REPRESENTATIVE Ot 729.5 PAIN IN LIMB 12/17/2016 MICHELLE VICENTE, AGNES Ot N20.0 CALCULUS OF KIDNEY 12/17/2016 VICTOR MANUEL VICENTE, AURORA Richter Ot N20.9 URINARY CALCULUS, UNSPECIFIED 01/03/2017 SARA, POLLO [employer]ODUCT SUPPORT SALES REPRESENTATIVE Ot S90.121A CONTUSION OF RIGHT LESSER TOE(S) W/O DAM 01/03/2017 SARA, POLLO PRODUCT SUPPORT SALES REPRESENTATIVE Ot S99.921A UNSPECIFIED INJURY OF RIGHT FOOT, INITIA 01/03/2017 SARA, POLLO [employer] SUPPORT SALES REPRESENTATIVE Ot W22.09XA STRIKING AGAINST OTHER STATIONARY OBJECT 01/03/2017 SARA, POLLO PRODUCT SUPPORT SALES REPRESENTATIVE Ot Y92.[address] IN [facility] NON-INSTITUT (PRIVATE 01/03/2017 SARA, POLLO PRODUCT SUPPORT SALES REPRESENTATIVE Ot Y99.8 OTHER EXTERNAL CAUSE STATUS 09/21/2017 SARA, POLLO [employer] SUPPORT SALES REPRESENTATIVE Ot J45.909 UNSPECIFIED ASTHMA, UNCOMPLICATED 09/21/2017 SARA, POLLO [employer] SUPPORT SALES REPRESENTATIVE Ot M54.5 LOW BACK PAIN 09/21/2017 SARA, POLLO [employer] SUPPORT SALES REPRESENTATIVE Ot N20.9 URINARY CALCULUS, UNSPECIFIED 09/21/2017 SARA, POLLO [employer] SUPPORT SALES REPRESENTATIVE Ot N39.0 URINARY TRACT INFECTION, SITE NOT SPECIF 09/21/2017 SARA, POLLO [employer] SUPPORT SALES REPRESENTATIVE Ot R10.9 UNSPECIFIED ABDOMINAL PAIN 09/21/2017 SARA, POLLO [employer] SUPPORT SALES REPRESENTATIVE Ot Z82.49 FAMILY HX OF ISCHEM HEART DIS AND OTH DI 09/21/2017 SARA, POLLO [employer] SUPPORT SALES REPRESENTATIVE Ot Z87.442 PERSONAL HISTORY OF URINARY CALCULI 09/21/2017 SARA, POLLO [employer] SUPPORT SALES REPRESENTATIVE Ot Z88.1 ALLERGY STATUS TO OTHER ANTIBIOTIC AGENT 09/21/2017 SARA, POLLO [employer] SUPPORT SALES REPRESENTATIVE Ot Z88.8 ALLERGY STATUS TO OTH DRUG/MEDS/BIOL SUB 09/21/2017 NICK JEONG PRODUCT SUPPORT SALES REPRESENTATIVE Ot 729.5 PAIN IN LIMB 09/21/2017 MICHELLE VICENTE, AGNES Ot N20.0 CALCULUS OF KIDNEY 09/21/2017 VICTOR MANUEL VICENTE, AURORA A Ot N20.9 URINARY CALCULUS, UNSPECIFIED 09/21/2017 NICK JEONG PRODUCT SUPPORT SALES REPRESENTATIVE Ot 729.5 PAIN IN LIMB 09/21/2017 MICHELLE VICENTE, AGNES Ot N20.0 CALCULUS OF KIDNEY 09/21/2017 VICTOR MANUEL VICENTE, AURORA Richter Ot N20.9 URINARY CALCULUS, UNSPECIFIED 09/23/2017 SARA, POLLO [employer] SUPPORT SALES REPRESENTATIVE Ot J45.909 UNSPECIFIED ASTHMA, UNCOMPLICATED 09/23/2017 SARA, POLLO [employer] SUPPORT SALES REPRESENTATIVE Ot M54.5 LOW BACK PAIN 09/23/2017 SARA, POLLO PRODUCT SUPPORT SALES REPRESENTATIVE Ot N20.9 URINARY CALCULUS, UNSPECIFIED 09/23/2017 SARA, POLLO PRODUCT SUPPORT SALES REPRESENTATIVE Ot N39.0 URINARY TRACT INFECTION, SITE NOT SPECIF 09/23/2017 SARA, POLLO PR[employer] SUPPORT SALES REPRESENTATIVE Ot Z82.49 FAMILY HX OF ISCHEM HEART DIS AND OTH DI 09/23/2017 SARA, POLLO PR[employer] SUPPORT SALES REPRESENTATIVE Ot Z87.442 PERSONAL HISTORY OF URINARY CALCULI 09/23/2017 SARA, POLLO PR[employer] SUPPORT SALES REPRESENTATIVE Ot Z88.1 ALLERGY STATUS TO OTHER ANTIBIOTIC AGENT 09/23/2017 SARA, POLLO PR[employer] SUPPORT SALES REPRESENTATIVE Ot Z88.8 ALLERGY STATUS TO OTH DRUG/MEDS/BIOL SUB 09/24/2017 AURORA RUSH MD Ot N20.1 CALCULUS OF URETER 09/27/2017 AURORA RUSH MD Ot N20.1 CALCULUS OF URETER 09/27/2017 AURORA RUSH MD Ot Z01.8 18 ENCOUNTER FOR OTHER PREPROCEDURAL EXAMIN 09/28/2017 AURORA RUSH MD Ot N20.1 CALCULUS OF URETER 09/28/2017 AURORA RUSH MD Ot Z01.8 18 ENCOUNTER FOR OTHER PREPROCEDURAL EXAMIN 09/28/2017 AURORA RUSH MD Ot N20.1 CALCULUS OF URETER 09/29/2017 AURORA RUSH MD, Ot N20.1 CALCULUS OF URETER 11/03/2017 NIKKY FRANCO MD Ot J45.909 UNSPECIFIED ASTHMA, UNCOMPLICATED 11/03/2017 NIKKY FRANCO MD Ot M54.5 LOW BACK PAIN 11/03/2017 NIKKY FRANCO MD, Ot M54.6 PAIN IN THORACIC SPINE 11/03/2017 NIKKY FRANCO MD Ot Z77.22 CNTCT W AND EXPSR TO ENVIRON TOBACCO SMO 11/03/2017 NIKKY FRANCO MD, Ot Z79.52 FPC (CURRENT) USE OF SYSTEMIC STER 11/03/2017 NIKKY FRANCO MD, Ot Z82.49 FAMILY HX OF ISCHEM HEART DIS AND OTH DI 11/03/2017 NIKKY FRANCO MD, Ot Z87.442 PERSONAL HISTORY OF URINARY CALCULI 11/03/2017 NIKKY FRANCO MD, Ot Z88.1 ALLERGY STATUS TO OTHER ANTIBIOTIC AGENT 11/03/2017 NIKKY FRANCO MD, Ot Z88.6 ALLERGY STATUS TO ANALGESIC AGENT STATUS 11/04/2017 NICK JEONG PRODUCT SUPPORT SALES REPRESENTATIVE Ot 729.5 PAIN IN LIMB 11/04/2017 MICHELLE VICENTE, AGNES Ot N20.0 CALCULUS OF KIDNEY 11/04/2017 AURORA RUSH MD Ot N20.9 URINARY CALCULUS, UNSPECIFIED 11/04/2017 AURORA RUSH MD Ot N20.1 CALCULUS OF URETER 11/04/2017 AURORA RUSH MD Ot N20.1 CALCULUS OF URETER 11/05/2017 VICTOR MANUEL VICENTE, AURORA Richter Ot N20.1 CALCULUS OF URETER 11/10/2017 NICK JEONG PRODUCT SUPPORT SALES REPRESENTATIVE Ot 729.5 PAIN IN LIMB 11/10/2017 MICHELLE VICENTE, AGNES Ot N20.0 CALCULUS OF KIDNEY 11/10/2017 AURORA RUSH MD Ot N20.9 URINARY CALCULUS, UNSPECIFIED 11/10/2017 AURORA RUSH MD Ot N20.1 CALCULUS OF URETER 11/10/2017 AURORA RUSH MD Ot N20.1 CALCULUS OF URETER 11/11/2017 NICK JEONG PRODUCT SUPPORT SALES REPRESENTATIVE Ot 729.5 PAIN IN LIMB 11/11/2017 MICHELLE VICENTE, AGNES Ot N20.0 CALCULUS OF KIDNEY 11/11/2017 AURORA RUSH MD Ot N20.9 URINARY CALCULUS, UNSPECIFIED 11/11/2017 AURORA RUSH MD Ot N20.1 CALCULUS OF URETER 11/11/2017 AURORA RUSH MD Ot N20.1 CALCULUS OF URETER 11/15/2017 AURORA RUSH MD Ot N13.2 HYDRONEPHROSIS WITH RENAL AND URETERAL C 11/18/2017 NICK JEONG PRODUCT SUPPORT SALES REPRESENTATIVE Ot 729.5 PAIN IN LIMB 11/18/2017 MICHELLE VICENTE, AGNES Ot N20.0 CALCULUS OF KIDNEY 11/18/2017 AURORA RUSH MD Ot N20.9 URINARY CALCULUS, UNSPECIFIED 11/18/2017 AURORA RUSH MD Ot N20.1 CALCULUS OF URETER 11/18/2017 AURORA RUSH MD Ot N20.1 CALCULUS OF URETER 11/18/2017 AURORA RUSH MD Ot N13.2 HYDRONEPHROSIS WITH RENAL AND URETERAL C 12/02/2017 AURORA RUSH MD Ot N13.2 HYDRONEPHROSIS WITH RENAL AND URETERAL C 12/03/2017 AURORA RUSH MD Ot N20.1 CALCULUS OF URETER 12/17/2017 REGINE VICENTE, GRETEL Becerra Ot H65. 93 UNSPECIFIED NONSUPPURATIVE OTITIS MEDIA, 12/17/2017 GRETEL WEINER MD Ot J06. 9 ACUTE UPPER RESPIRATORY INFECTION, UNSPE 12/17/2017 GRETEL WEINER MD Ot J45.909 UNSPECIFIED ASTHMA, UNCOMPLICATED 12/17/2017 GRETEL WEINER MD Ot R09. 82 POSTNASAL DRIP 12/17/2017 GRETEL WEINER MD Ot R11. 10 VOMITING, UNSPECIFIED 12/17/2017 GRETEL WEINER MD Ot R13. 10 DYSPHAGIA, UNSPECIFIED 12/17/2017 GRETEL WEINER MD Ot Z77. 22 CNTCT W AND EXPSR TO ENVIRON TOBACCO SMO 12/17/2017 GRETEL WEINER MD Ot Z79. 52 FPC (CURRENT) USE OF SYSTEMIC STER 12/17/2017 GRETEL WEINER MD Ot Z87.442 PERSONAL HISTORY OF URINARY CALCULI 12/17/2017 GRETEL WEINER MD Ot Z87. 81 PERSONAL HISTORY OF (HEALED) TRAUMATIC F 12/17/2017 GRETEL WEINER MD Ot Z87.828 PERSONAL HISTORY OF OTH (HEALED) PHYSICA 12/17/2017 GRETEL WEINER MD Ot Z88. 1 ALLERGY STATUS TO OTHER ANTIBIOTIC AGENT 12/17/2017 GRETEL WEINER MD Ot Z88. 6 ALLERGY STATUS TO ANALGESIC AGENT STATUS 12/20/2017 GRETEL WEINER MD Ot H65. 93 UNSPECIFIED NONSUPPURATIVE OTITIS MEDIA, 12/20/2017 GRETEL WEINER MD Ot J06. 9 ACUTE UPPER RESPIRATORY INFECTION, UNSPE 12/20/2017 GRETEL WEINER MD Ot J45.909 UNSPECIFIED ASTHMA, UNCOMPLICATED 12/20/2017 GRETEL WEINER MD Ot R09. 82 POSTNASAL DRIP 12/20/2017 GRETEL WEINER MD Ot R11. 10 VOMITING, UNSPECIFIED 12/20/2017 GRETEL WEINER MD Ot R13. 10 DYSPHAGIA, UNSPECIFIED 12/20/2017 GRETEL WEINER MD Ot Z77. 22 CNTCT W AND EXPSR TO ENVIRON TOBACCO SMO 12/20/2017 GRETEL WEINER MD Ot Z79. 52 FPC (CURRENT) USE OF SYSTEMIC STER 12/20/2017 GRETEL WEINER MD Ot Z87.442 PERSONAL HISTORY OF URINARY CALCULI 12/20/2017 REGINE VICENTE, GRETEL Becerra Ot Z87. 81 PERSONAL HISTORY OF (HEALED) TRAUMATIC F 12/20/2017 GRETEL WEINER MD Ot Z87.828 PERSONAL HISTORY OF OTH (HEALED) PHYSICA 12/20/2017 GRETEL WEINER MD Ot Z88. 1 ALLERGY STATUS TO OTHER ANTIBIOTIC AGENT 12/20/2017 GRETEL WEINER MD Ot Z88. 6 ALLERGY STATUS TO ANALGESIC AGENT STATUS 03/25/2018 RIDGE RUIZ APRN Ot J45.909 UNSPECIFIED ASTHMA, UNCOMPLICATED 03/25/2018 RIDGE RUIZ APRN Ot M25.562 PAIN IN LEFT KNEE 03/25/2018 RIDGE RUIZ APRN Ot S83.92XA SPRAIN OF UNSPECIFIED SITE OF LEFT KNEE, 03/25/2018 RIDGE RUIZ APRN Ot X50.0XXA OVEREXERTION FROM STRENUOUS MOVEMENT OR 03/25/2018 RIDGE RUIZ APRN Ot Y92.[address] IN [facility] NON-INSTITUT (PRIVATE 03/25/2018 RIDGE RUIZ APRN Ot Y93.01 ACTIVITY, WALKING, MARCHING AND HIKING 03/25/2018 RIDGE RUIZ APRN Ot Z77.22 CNTCT W AND EXPSR TO ENVIRON TOBACCO SMO 03/25/2018 RIDGE RUIZ APRN Ot Z87.442 PERSONAL HISTORY OF URINARY CALCULI 03/25/2018 RIDGE RUIZ APRN Ot Z88 .1 ALLERGY STATUS TO OTHER ANTIBIOTIC AGENT 03/25/2018 RIDGE RUIZ APRN Ot Z88 .5 ALLERGY STATUS TO NARCOTIC AGENT STATUS 03/28/2018 RIDGE RUIZ APRN Ot J45.909 UNSPECIFIED ASTHMA, UNCOMPLICATED 03/28/2018 RIDGE RUIZ APRN Ot M25.562 PAIN IN LEFT KNEE 03/28/2018 RIDGE RUIZ APRN Ot S83.92XA SPRAIN OF UNSPECIFIED SITE OF LEFT KNEE, 03/28/2018 RIDGE RUIZ APRN Ot X50.0XXA OVEREXERTION FROM STRENUOUS MOVEMENT OR 03/28/2018 RIDGE RUIZ APRN Ot Y92.[address] IN [facility] NON-INSTIT[facility] (PRIVATE 03/28/2018 RIDGE RUIZ APRN Ot Y93.01 ACTIVITY, WALKING, MARCHING AND HIKING 03/28/2018 RIDGE RUIZ APRN Ot Z77.22 CNTCT W AND EXPSR TO ENVIRON TOBACCO SMO 03/28/2018 RIDGE RUIZ APRN Ot Z87.442 PERSONAL HISTORY OF URINARY CALCULI 03/28/2018 RIDGE RUIZ APRN Ot Z88 .1 ALLERGY STATUS TO OTHER ANTIBIOTIC AGENT 03/28/2018 RIDGE RUIZ APRN Ot Z88 .5 ALLERGY STATUS TO NARCOTIC AGENT STATUS 03/28/2018 RIDGE RUIZ APRN Ot J45.909 UNSPECIFIED ASTHMA, UNCOMPLICATED 03/28/2018 RIDGE RUIZ APRN Ot M25.562 PAIN IN LEFT KNEE 03/28/2018 RIDGE RUIZ APRN Ot S83.92XA SPRAIN OF UNSPECIFIED SITE OF LEFT KNEE, 03/28/2018 RIDGE RUIZ APRN Ot X50.0XXA OVEREXERTION FROM STRENUOUS MOVEMENT OR 03/28/2018 RIDGE RUIZ APRN Ot Y92.[address] [facility] PL[address] IN [facility] NON-INSTITUT (PRIVATE 03/28/2018 RIDGE RUIZ APRN Ot Y93.01 ACTIVITY, WALKING, MARCHING AND HIKING 03/28/2018 RIDGE RUIZ APRN Ot Z77.22 CNTCT W AND EXPSR TO ENVIRON TOBACCO SMO 03/28/2018 RIDGE RUIZ APRN Ot Z87.442 PERSONAL HISTORY OF URINARY CALCULI 03/28/2018 RIDGE RUIZ APRN Ot Z88 .1 ALLERGY STATUS TO OTHER ANTIBIOTIC AGENT 03/28/2018 RIDGE RUIZ APRN Ot Z88 .5 ALLERGY STATUS TO NARCOTIC AGENT STATUS 04/26/2018 BRO OWENS MD Ot S83.92XA SPRAIN OF UNSPECIFIED SITE OF LEFT KNEE, 04/26/2018 BRO OWENS MD Ot X50.0XXA OVEREXERTION FROM STRENUOUS MOVEMENT OR 04/26/2018 BRO OWENS MD Ot Y93.01 ACTIVITY, WALKING, MARCHING AND HIKING 04/26/2018 BRO OWENS MD Ot S83.92XA SPRAIN OF UNSPECIFIED SITE OF LEFT KNEE, 04/26/2018 BRO OWENS MD Ot X50.0XXA OVEREXERTION FROM STRENUOUS MOVEMENT OR 04/26/2018 BRO OWENS MD Ot Y93.01 ACTIVITY, WALKING, MARCHING AND HIKING 05/01/2018 BRO OWENS MD Ot S83.92XA SPRAIN OF UNSPECIFIED SITE OF LEFT KNEE, 05/01/2018 BRO OWENS MD Ot X50.0XXA OVEREXERTION FROM STRENUOUS MOVEMENT OR 05/01/2018 BRO OWENS MD Ot Y93.01 ACTIVITY, WALKING, MARCHING AND HIKING 05/02/2018 BRO OWENS MD Ot S83.92XA SPRAIN OF UNSPECIFIED SITE OF LEFT KNEE, 05/02/2018 BRO OWENS MD Ot X50.0XXA OVEREXERTION FROM STRENUOUS MOVEMENT OR 05/02/2018 BRO OWENS MD Ot Y93.01 ACTIVITY, WALKING, MARCHING AND HIKING 05/04/2018 BRO OWENS MD Ot S83.92XA SPRAIN OF UNSPECIFIED SITE OF LEFT KNEE, 05/04/2018 BRO OWENS MD Ot X50.0XXA OVEREXERTION FROM STRENUOUS MOVEMENT OR 05/04/2018 BRO OWENS MD Ot Y93.01 ACTIVITY, WALKING, MARCHING AND HIKING 05/06/2018 BRO OWENS MD Ot S83.92XA SPRAIN OF UNSPECIFIED SITE OF LEFT KNEE, 05/06/2018 BRO OWENS MD Ot X50.0XXA OVEREXERTION FROM STRENUOUS MOVEMENT OR 05/06/2018 BRO OWENS MD Ot Y93.01 ACTIVITY, WALKING, MARCHING AND HIKING 05/25/2018 BRO OWENS MD Ot S83.92XA SPRAIN OF UNSPECIFIED SITE OF LEFT KNEE, 05/25/2018 BRO OWENS MD Ot X50.0XXA OVEREXERTION FROM STRENUOUS MOVEMENT OR 05/25/2018 BRO OWENS MD Ot Y93.01 ACTIVITY, WALKING, MARCHING AND HIKING 09/15/2018 AURORA RUSH MD Ot N20.0 CALCULUS OF KIDNEY 09/21/2018 POLLO RUIZ Ot J45.909 UNSPECIFIED ASTHMA, UNCOMPLICATED 09/21/2018 POLLO RUIZ Ot M54.5 LOW BACK PAIN 09/21/2018 SARA, [employer]ES REPRESENTATIVE Ot N20.9 URINARY CALCULUS, UNSPECIFIED 09/21/2018 SARA, [employer] SALES REPRESENTATIVE Ot N39.0 URINARY TRACT INFECTION, SITE NOT SPECIF 09/21/2018 SARA, POLLO [employer]ODUCT [employer]PPORT SALES REPRESENTATIVE Ot Z82.49 FAMILY HX OF ISCHEM HEART DIS AND OTH DI 09/21/2018 SARA, POLLO [employer] SUPPORT SALES REPRESENTATIVE Ot Z87.442 PERSONAL HISTORY OF URINARY CALCULI 09/21/2018 SRAA, POLLO [employer] SUPPORT SALES REPRESENTATIVE Ot Z88.1 ALLERGY STATUS TO OTHER ANTIBIOTIC AGENT 09/21/2018 SARA, POLLO [employer] SUPPORT SALES REPRESENTATIVE Ot Z88.8 ALLERGY STATUS TO OTH DRUG/MEDS/BIOL SUB 09/21/2018 SARA, POLLO [employer] SUPPORT SALES REPRESENTATIVE Ot J45.909 UNSPECIFIED ASTHMA, UNCOMPLICATED 09/21/2018 SARA, POLLO [employer]ODUCT SUPPORT SALES REPRESENTATIVE Ot M54.5 LOW BACK PAIN 09/21/2018 SARA, POLLO [employer]ODUCT SUPPORT SALES REPRESENTATIVE Ot N20.9 URINARY CALCULUS, UNSPECIFIED 09/21/2018 SARA, POLLO PRODUCT SUPPORT SALES REPRESENTATIVE Ot N39.0 URINARY TRACT INFECTION, SITE NOT SPECIF 09/21/2018 SARA, POLLO PRODUCT SUPPORT SALES REPRESENTATIVE Ot Z82.49 FAMILY HX OF ISCHEM HEART DIS AND OTH DI 09/21/2018 SARA, POLLO PRODUCT SUPPORT SALES REPRESENTATIVE Ot Z87.442 PERSONAL HISTORY OF URINARY CALCULI 09/21/2018 SARA, POLLO PRODUCT SUPPORT SALES REPRESENTATIVE Ot Z88.1 ALLERGY STATUS TO OTHER ANTIBIOTIC AGENT 09/21/2018 SARA, POLLO PRODUCT SUPPORT SALES REPRESENTATIVE Ot Z88.8 ALLERGY STATUS TO OTH DRUG/MEDS/BIOL SUB 09/21/2018 SARA, POLLO PRODUCT SUPPORT SALES REPRESENTATIVE Ot J45.909 UNSPECIFIED ASTHMA, UNCOMPLICATED 09/21/2018 SARA, POLLO PRODUCT SUPPORT SALES REPRESENTATIVE Ot M54.5 LOW BACK PAIN 09/21/2018 SARA, POLLO PRODUCT SUPPORT SALES REPRESENTATIVE Ot N20.9 URINARY CALCULUS, UNSPECIFIED 09/21/2018 SARA, POLLO PRODUCT SUPPORT SALES REPRESENTATIVE Ot N39.0 URINARY TRACT INFECTION, SITE NOT SPECIF 09/21/2018 SARA, POLLO PRODUCT SUPPORT SALES REPRESENTATIVE Ot Z82.49 FAMILY HX OF ISCHEM HEART DIS AND OTH DI 09/21/2018 SARA, POLLO PRODUCT SUPPORT SALES REPRESENTATIVE Ot Z87.442 PERSONAL HISTORY OF URINARY CALCULI 09/21/2018 SARA, POLLO PRODUCT SUPPORT SALES REPRESENTATIVE Ot Z88.1 ALLERGY STATUS TO OTHER ANTIBIOTIC AGENT 09/21/2018 SARA, POLLO PRODUCT SUPPORT SALES REPRESENTATIVE Ot Z88.8 ALLERGY STATUS TO OTH DRUG/MEDS/BIOL SUB 09/23/2018 SARA, POLLO PRODUCT SUPPORT SALES REPRESENTATIVE Ot J45.909 UNSPECIFIED ASTHMA, UNCOMPLICATED 09/23/2018 SARA, POLLO PRODUCT SUPPORT SALES REPRESENTATIVE Ot M54.5 LOW BACK PAIN 09/23/2018 SARA, POLLO PRODUCT SUPPORT SALES REPRESENTATIVE Ot N20.9 URINARY CALCULUS, UNSPECIFIED 09/23/2018 SARA, POLLO PRODUCT SUPPORT SALES REPRESENTATIVE Ot N39.0 URINARY TRACT INFECTION, SITE NOT SPECIF 09/23/2018 SARA, POLLO PRODUCT SUPPORT SALES REPRESENTATIVE Ot R10.9 UNSPECIFIED ABDOMINAL PAIN 09/23/2018 SARA, POLLO PRODUCT SUPPORT SALES REPRESENTATIVE Ot Z82.49 FAMILY HX OF ISCHEM HEART DIS AND OTH DI 09/23/2018 SARA, POLLO PRODUCT SUPPORT SALES REPRESENTATIVE Ot Z87.442 PERSONAL HISTORY OF URINARY CALCULI 09/23/2018 SARA POLLO PRODUCT SUPPORT SALES REPRESENTATIVE Ot Z88.1 ALLERGY STATUS TO OTHER ANTIBIOTIC AGENT 09/23/2018 SARA, POLLO PRODUCT SUPPORT SALES REPRESENTATIVE Ot Z88.8 ALLERGY STATUS TO OTH DRUG/MEDS/BIOL SUB 11/07/2018 VICTOR MANUEL VICENTE, AURORA Richter Ot N20.0 CALCULUS OF KIDNEY 11/08/2018 AURORA RUSH MD Ot N20.0 CALCULUS OF KIDNEY 02/16/2019 MICHELLE VICENTE, AGNES Ot N20.0 CALCULUS OF KIDNEY 02/16/2019 VICTOR MANUEL VICENTE, AURORA Richter Ot N20.9 URINARY CALCULUS, UNSPECIFIED 02/16/2019 AURORA RUSH MD Ot N20.1 CALCULUS OF URETER 02/16/2019 AURORA RUSH MD Ot N20.1 CALCULUS OF URETER 02/16/2019 VICTOR MANUEL VICENTE, AURORA Richter Ot N13.2 HYDRONEPHROSIS WITH RENAL AND URETERAL C 02/16/2019 AURORA RUSH MD A Ot N20.0 CALCULUS OF KIDNEY 02/16/2019 REGINE VICENTE, GRETEL J Ot J45.909 UNSPECIFIED ASTHMA, UNCOMPLICATED 02/16/2019 REGINE VICENTE, GRETEL J Ot M54. 5 LOW BACK PAIN 02/16/2019 REGINE VICENTE, GRETEL J Ot N20. 0 CALCULUS OF KIDNEY 02/16/2019 REGINE VICENTE, GRETEL J Ot N39. 0 URINARY TRACT INFECTION, SITE NOT SPECIF 02/16/2019 REGINE VICENTE, GRETEL J Ot Z77. 22 CNTCT W AND EXPSR TO ENVIRON TOBACCO SMO 02/16/2019 GRETEL WEINER MD J Ot Z82. 49 FAMILY HX OF ISCHEM HEART DIS AND OTH DI 02/16/2019 GRETEL WEINER MD Ot Z87.442 PERSONAL HISTORY OF URINARY CALCULI 02/16/2019 GRETEL WEINER MD Ot Z88. 1 ALLERGY STATUS TO OTHER ANTIBIOTIC AGENT 02/16/2019 GRETEL WEINER MD Ot Z88. 5 ALLERGY STATUS TO NARCOTIC AGENT STATUS 02/22/2019 GRETEL WEINER MD J Ot J45.909 UNSPECIFIED ASTHMA, UNCOMPLICATED 02/22/2019 GRETEL WEINER MD Ot M54. 5 LOW BACK PAIN 02/22/2019 GRETEL WEINER MD Ot N20. 0 CALCULUS OF KIDNEY 02/22/2019 GRETEL WEINER MD J Ot N39. 0 URINARY TRACT INFECTION, SITE NOT SPECIF 02/22/2019 GRETEL WEINER MD Ot Z77. 22 CNTCT W AND EXPSR TO ENVIRON TOBACCO SMO 02/22/2019 GRETEL WEINER MD Ot Z82. 49 FAMILY HX OF ISCHEM HEART DIS AND OTH DI 02/22/2019 GRETEL WEINER MD Ot Z87.442 PERSONAL HISTORY OF URINARY CALCULI 02/22/2019 GRETEL WEINER MD Ot Z88. 1 ALLERGY STATUS TO OTHER ANTIBIOTIC AGENT 02/22/2019 GRETEL WEINER MD Ot Z88. 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 RV TECHNICIAN (CURRENT) DRUG THERAPY 09/01/2019 ISRAEL FLORES DO Ot Z80.3 FAMILY HISTORY OF MALIGNANT NEOPLASM OF 09/01/2019 ISRAEL FLORES DO Ot Z82.4 9 FAMILY HX OF ISCHEM HEART DIS AND OTH DI 09/01/2019 ISRAEL FLORES DO Thierno Ot Z83.3 FAMILY HISTORY OF DIABETES MELLITUS 09/01/2019 ISRAEL FLORES DO Thierno Ot Z88.1 ALLERGY STATUS TO OTHER ANTIBIOTIC AGENT 09/01/2019 SANDRA BETTS ISRAEL C Ot Z88.5 ALLERGY STATUS TO NARCOTIC AGENT STATUS 09/13/2019 ISRAEL FLORES DO Thierno Ot O46.9 1 ANTEPARTUM HEMORRHAGE, UNSPECIFIED, FIRS 09/13/2019 ISRAEL FLORES DO Thierno Ot Z3A.0 9 9 WEEKS GESTATION OF Procedures Code Description [place] [address] THER APUTIC INJ SQ/IM 06/01/2012 J1055 DEPO -PROVERA INJ 150 MG 06/01/2012 39613 URIN E TEST (IN- HOUSE) 06/01/2012 27838 THER APUTIC INJ SQ/IM 08/31/2012 J1055 DEPO -PROVERA INJ 150 MG 08/31/2012 87215 URIN E TEST (IN- HOUSE) 08/31/2012 19951 OXIMETRY 09/15/2012 94249 SPIR OMETRY 10/12/2012 94913 BRON CHODILATION PRE/POST 10/12/2012 94586 RESP IRATORY FLOW VOLUME LOOP 10/12/2012 37524 XRAY ANKLE R COMP MIN, 3 VIEWS 10/13/2012 28194 XRAY FOOT RIGHT 2 VIEWS 10/13/2012 72262 URIN E TEST (IN- HOUSE) 11/23/2012 91988 THER APUTIC INJ SQ/IM 11/23/2012 J1055 Depo -Provera Contraceptive 150 mg/mL Suspension 11/23/2012 32898 MONO TEST (IN-HOUSE) 01/13/2013 23081 URIN E TEST (IN- HOUSE) 02/16/2013 J1050 DEPO PROVERA 02/16/2013 51809 MONO TEST (IN-HOUSE) 04/20/2013 89980 URIN E TEST (IN- HOUSE) 04/20/2013 21355 XRAY HAND RIGHT MIN 3 VIEWS 05/11/2013 62726 THER APUTIC INJ SQ/IM 05/19/2013 J1050 DEPO PROVERA 05/19/2013 53114 URIN E TEST (IN- HOUSE) 05/19/2013 15189 XRAY HAND RIGHT MIN 3 VIEWS 05/19/2013 42261 STRE P A (IN-HOUSE) 06/23/2013 51981 CULT URE THROAT 06/24/2013 87474 INFL UENZA A & B (IN-HOUSE) 07/24/2013 47808 PREG NOEMI TEST, URINE (IN- HOUSE) 08/31/2013 J1050 DEPO PROVERA 08/31/2013 21030 THER APUTIC INJ SQ/IM 08/31/2013 J1055 Depo -Provera Contraceptive 150 mg/mL Suspension 09/04/2013 J1050 DEPO PROVERA 10/31/2013 25351 PREG NOEMI TEST, URINE (IN- HOUSE) 10/31/2013 J1050 DEPO PROVERA 01/30/2014 66243 PREG NOEMI TEST, URINE (IN- HOUSE) 01/30/2014 06445 THER APUTIC INJ SQ/IM 01/30/2014 72928 PREG NOEMI TEST, URINE (IN- HOUSE) 05/02/2014 70666 THER APUTIC INJ SQ/IM 05/02/2014 J1050 DEPO PROVERA 05/02/2014 56061 XRAY HAND RIGHT MIN 3 VIEWS 05/09/2014 22947 PREG NOEMI TEST, URINE (IN- HOUSE) 06/27/2014 80063 UA W / CULTURE IF INDICATED 06/27/2014 70509 ROUT INE VENIPUNCTURE 06/27/2014 93190 CBC 06/27/2014 27479 CMP 06/27/2014 01881 LIPI D PANEL 06/27/2014 21881 TSH 06/27/2014 02605 CULT URE URINE 06/28/2014 76927 UA W / CULTURE IF INDICATED 07/05/2014 50161 URIN E MICROSCOPIC EXAM 07/07/2014 18032 CULT URE URINE 07/07/2014 29156 UA W / CULTURE IF INDICATED 07/10/2014 49578 CULT URE URINE 07/10/2014 59377 THER APUTIC INJ SQ/IM 09/13/2014 J1050 DEPO PROVERA 09/13/2014 64489 PREG NOEMI TEST, URINE (IN- HOUSE) 09/13/2014 89029 CULT URE URINE 11/13/2014 89357 UA L SANJIV DIP 11/13/2014 Results Test Result Range Complete urinalysis with reflex to cultu re - 03/12/16 13:05 Urine color determination YELLOW NRG Urine clarity determination CLEAR NR G Urine pH measurement by test strip 5 5-9 Specific gravity of urine by test strip 1.025 1.016-1.022 Urine protein assay by test strip, semi-quantitative 1+ NEGATIVE Urine glucose detection by automated test strip NE GATIVE NEGATIVE Erythrocytes detection in urine sediment by light micr oscopy 2+ NEGATIVE Urine ketones detection by automated test strip NE GATIVE NEGATIVE Urine nitrite detection by test strip NEGATIVE NEGATIVE Urine total bilirubin detection by test strip NEGA TIVE NEGATIVE Urine urobilinogen measurement by automated test strip (mass/volume) NORMAL NORMAL Urine leukocyte esterase detection by dipstick 1+ NEGATIVE Automated urine sediment erythrocyte cou nt by microscopy (number/high power field) [HPF] NRG Automated urine sediment leukocyte count by microscopy (number/high power field) [HPF] NRG Bacteria detection in urine sediment by light microsco py TRACE NRG Squamous epithelial cells detection in u rine sediment by light microscopy 10-25 NRG Crystals detection in urine sediment by light microsco py NONE NRG Casts detection in urine sediment by light microscopy NONE NRG Mucus detection in urine sediment by light microscopy NEGATIVE NRG Complete urinalysis with reflex to culture NO NRG Complete blood count (CBC) with automate d white blood cell (WBC) differential - 03/12/16 13:25 Blood leukocytes automated count (number/volume) 8.9 10*3/uL 4.3-11.0 Blood erythrocytes automated count (number/volume) 4.64 10*6/uL 4.35-5.85 Venous blood hemoglobin measurement (mass/volume) 12.2 g/dL 11.5-16.0 Blood hematocrit (volume fraction) 37 % 35-52 Automated erythrocyte mean corpuscular volume 79 [ foz_us] 80-99 Automated erythrocyte mean corpuscular h emoglobin (mass per erythrocyte) 26 pg 25-34 Automated erythrocyte mean corpuscular h emoglobin concentration measurement (mass/volume) 33 g/dL 32-36 Automated erythrocyte distribution width ratio 12. 3 % 10.0- 14.5 Automated blood platelet count (count/volume) 446 10*3/uL [...] 10*3 1.0-4.0 Blood monocytes automated count (number/volume) 0. 8 10*3 0.0-1.0 Automated eosinophil count 0.1 10*3/uL 0 .0-0.3 Automated blood basophil count (count/volume) 0.0 10*3/uL 0.0-0.1 Comprehensive metabolic panel - 03/12/16 13:25 Serum or plasma sodium measurement (moles/volume) 139 mmol/L 135-145 Serum or plasma potassium measurement (moles/volume) 3.7 mmol/L 3.6-5.0 Serum or plasma chloride measurement (moles/volume) 109 mmol/L 98-107 Carbon dioxide 24 mmol/L 21-32 Serum or plasma anion gap determination (moles/volume) 6 mmol/L 5-14 Serum or plasma urea nitrogen measurement (mass/volume ) 10 mg/dL 7-18 Serum or plasma creatinine measurement (mass/volume) 0.88 mg/dL 0.60-1.30 Serum or plasma urea nitrogen/creatinine mass ratio 11 NRG Serum or plasma glucose measurement (mass/volume) 100 mg/dL 70-105 Serum or plasma calcium measurement (mass/volume) 10.0 mg/dL 8.5-10.1 Serum or plasma total bilirubin measurement (mass/volu me) 0.3 mg/dL 0.1-1.0 Serum or plasma alkaline phosphatase staecy surement (enzymatic activity/volume) 94 U/L 60-350 Serum or plasma aspartate aminotransfera se measurement (enzymatic activity/volume) 13 U/L 5-34 Serum or plasma alanine aminotransferase measurement (enzymatic activity/volume) 14 U/L 0-55 Serum or plasma protein measurement (mass/volume) 7.3 g/dL 6.4-8.2 Serum or plasma albumin measurement (mass/volume) 4.1 g/dL 3.2-4.5 Serum or plasma uric acid measurement (m ass/volume) - 03/16/16 15:28 Serum or plasma uric acid measurement (mass/volume) 6.0 mg/dL 2.6-7.2 Serum or plasma phosphate measurement (m ass/volume) - 03/16/16 15:28 Serum or plasma phosphate measurement (mass/volume) 3.2 mg/dL 2.3-4.7 Serum or plasma intact pararthyroid horm one measurement (mass/volume) - 03/16/16 15:28 Serum or plasma intact parathyroid hormone measurement (mass/volume) 12 pg/mL 10-65 Bio-intact parathyroid hormone (PTH) measurement with calcium 9.6 % 8.5-10.5 Urine beta human chorionic gonadotropin (hCG) measurement - 03/16/16 15:30 Urine beta human chorionic gonadotropin (hCG) measurem ent NEGATIVE NEGATIVE Methicillin resistant Staphylococcus aur eus (MRSA) screening culture - 03/16/16 15:30 Methicillin resistant Staphylococcus aureus (MRSA) scr eening culture NEG NRG Whole blood basic metabolic panel - 03/04 08/17 15:39 Serum or plasma sodium measurement (moles/volume) 138 mmol/L 135-145 Serum or plasma potassium measurement (moles/volume) 3.9 mmol/L 3.6-5.0 Serum or plasma chloride measurement (moles/volume) 108 mmol/L 98-107 Carbon dioxide 20 mmol/L 21-32 Serum or plasma anion gap determination (moles/volume) 10 mmol/L 5-14 Serum or plasma urea nitrogen measurement (mass/volume ) 11 mg/dL 7-18 Serum or plasma creatinine measurement (mass/volume) 0.72 mg/dL 0.60-1.30 Serum or plasma urea nitrogen/creatinine mass ratio 15 NRG Serum or plasma glucose measurement (mass/volume) 90 mg/dL 70-105 Serum or plasma calcium measurement (mass/volume) 9.5 mg/dL 8.5-10.1 Serum or plasma uric acid measurement (m ass/volume) - 04/01/16 15:39 Serum or plasma uric acid measurement (mass/volume) 4.4 mg/dL 2.6-7.2 Serum or plasma phosphate measurement (m ass/volume) - 04/01/16 15:39 Serum or plasma phosphate measurement (mass/volume) 3.4 mg/dL 2.3-4.7 Serum or plasma intact pararthyroid horm one measurement (mass/volume) - 04/01/16 15:39 Serum or plasma intact parathyroid hormone [...] Sodium urate/total calculus mass ratio by infrared spe ctroscopy 136 % < 200 Sulfites [presence] in urine by test strip 15 < 30 Urine phosphate measurement (mass/volume) 1012 % < 1100 Urine magnesium measurement (mass/volume) 81 % > 60 Urine calcium oxalate measurement 2.52 < 2.00 Urine calcium phosphate crystals detecti on by computer assisted method 5.17 < 2.00 24 hour urine sodium urate (saturation fraction) 9 .46 < 2.00 Triple phosphate crystals detection in u rine sediment by light microscopy 6.05 < 75.00 24 hour urine uric acid (saturation fraction) 1.40 < 2.00 Urine ammonium measurement 23 % 14- 62 Urine potassium measurement 39 % 19 -135 24 hour urine creatinine measurement (mass/time) 1 703 % 600- 1800 Clinical ladle liner helper review of results See Below NRG Complete urinalysis with reflex to cultu re - 09/21/17 10:10 Urine color determination YELLOW NRG Urine clarity determination SLIGHTLY CLOUDY NRG Urine pH measurement by test strip 6 5-9 Specific gravity of urine by test strip 1.020 1.016-1.022 Urine protein assay by test strip, semi-quantitative 1+ NEGATIVE Urine glucose detection by automated test strip NE GATIVE NEGATIVE Erythrocytes detection in urine sediment by light micr oscopy 5+ NEGATIVE Urine ketones detection by automated test strip NE GATIVE NEGATIVE Urine nitrite detection by test strip NEGATIVE NEGATIVE Urine total bilirubin detection by test strip NEGA TIVE NEGATIVE Urine urobilinogen measurement by automated test strip (mass/volume) NORMAL NORMAL Urine leukocyte esterase detection by dipstick 2+ NEGATIVE Automated urine sediment erythrocyte cou nt by microscopy (number/high power field) > [HPF] NRG Automated urine sediment leukocyte count by microscopy (number/high power field) [HPF] NRG Bacteria detection in urine sediment by light microsco py LARGE NRG Squamous epithelial cells detection in u rine sediment by light microscopy 25-50 NRG Crystals detection in urine sediment by light microsco py NONE NRG Casts detection in urine sediment by light microscopy NONE NRG Mucus detection in urine sediment by light microscopy NEGATIVE NRG Complete urinalysis with reflex to culture YES NRG Bacterial urine culture - 09/21/17 10:10 URINE CULTURE RESULTS <10,000/ML NRG Complete blood count (CBC) with automate d white blood cell (WBC) differential - 09/21/17 12:20 Blood leukocytes automated count (number/volume) 8.1 10*3/uL 4.3-11.0 Blood erythrocytes automated count (number/volume) 4.79 10*6/uL 4.35-5.85 Venous blood hemoglobin measurement (mass/volume) 12.7 g/dL 11.5-16.0 Blood hematocrit (volume fraction) 38 % 35-52 Automated erythrocyte mean corpuscular volume 80 [ foz_us] 80-99 Automated erythrocyte mean corpuscular h emoglobin (mass per erythrocyte) 27 pg 25-34 Automated erythrocyte mean corpuscular h emoglobin concentration measurement (mass/volume) 33 g/dL 32-36 Automated erythrocyte distribution width ratio 12. 6 % 10.0- 14.5 Automated blood platelet count (count/volume) 425 10*3/uL [...] 10*3 1.0-4.0 Blood monocytes automated count (number/volume) 0. 8 10*3 0.0-1.0 Automated eosinophil count 0.2 10*3/uL 0 .0-0.3 Automated blood basophil count (count/volume) 0.1 10*3/uL 0.0-0.1 Comprehensive metabolic panel - 09/21/17 12:20 Serum or plasma sodium measurement (moles/volume) 139 mmol/L 135-145 Serum or plasma potassium measurement (moles/volume) 3.9 mmol/L 3.6-5.0 Serum or plasma chloride measurement (moles/volume) 110 mmol/L 98-107 Carbon dioxide 21 mmol/L 21-32 Serum or plasma anion gap determination (moles/volume) 8 mmol/L 5-14 Serum or plasma urea nitrogen measurement (mass/volume ) 9 mg/dL 7-18 Serum or plasma creatinine measurement (mass/volume) 0.79 mg/dL 0.60-1.30 Serum or plasma urea nitrogen/creatinine mass ratio 11 NRG Serum or plasma creatinine measurement w ith calculation of estimated glomerular filtration rate > NRG Serum or plasma glucose measurement (mass/volume) 84 mg/dL 70-105 Serum or plasma calcium measurement (mass/volume) 9.3 mg/dL 8.5-10.1 Serum or plasma total bilirubin measurement (mass/volu me) 0.6 mg/dL 0.1-1.0 Serum or plasma alkaline phosphatase stacey surement (enzymatic activity/volume) 106 U/L 40-136 Serum or plasma aspartate aminotransfera se measurement (enzymatic activity/volume) 18 U/L 5-34 Serum or plasma alanine aminotransferase measurement (enzymatic activity/volume) 19 U/L 0-55 Serum or plasma protein measurement (mass/volume) 7.5 g/dL 6.4-8.2 Serum or plasma albumin measurement (mass/volume) 4.3 g/dL 3.2-4.5 Complete urinalysis with reflex to cultu re - 11/03/17 22:14 Urine color determination YELLOW NRG Urine clarity determination CLEAR NR G Urine pH measurement by test strip 6 5-9 Specific gravity of urine by test strip 1.015 1.016-1.022 Urine protein assay by test strip, semi-quantitative NEGATIVE NEGATIVE Urine glucose detection by automated test strip NE GATIVE NEGATIVE Erythrocytes detection in urine sediment by light micr oscopy 1+ NEGATIVE Urine ketones detection by automated test strip NE GATIVE NEGATIVE Urine nitrite detection by test strip NEGATIVE NEGATIVE Urine total bilirubin detection by test strip NEGA TIVE NEGATIVE Urine urobilinogen measurement by automated test strip (mass/volume) NORMAL NORMAL Urine leukocyte esterase detection by dipstick 1+ NEGATIVE Automated urine sediment erythrocyte cou nt by microscopy (number/high power field) [HPF] NRG Automated urine sediment leukocyte count by microscopy (number/high power field) [HPF] NRG Bacteria detection in urine sediment by light microsco py FEW NRG Squamous epithelial cells detection in u rine sediment by light microscopy 5-10 NRG Crystals detection in urine sediment by light microsco py NONE NRG Casts detection in urine sediment by light microscopy NONE NRG Mucus detection in urine sediment by light microscopy NEGATIVE NRG Complete urinalysis with reflex to culture NO NRG Urine beta human chorionic gonadotropin (hCG) measurement - 11/03/17 22:14 Urine beta human chorionic gonadotropin (hCG) measurem ent NEGATIVE NEGATIVE Streptococcus pyogenes antigen detection - 12/17/17 01:10 Streptococcus pyogenes antigen detection NEGATIVE NEGATIVE Bacterial throat culture - 12/17/17 01:1 0 Bacterial throat culture NBS NRG Serum heterophile antibody titer - 12/17 01:30 Serum heterophile antibody titer NEGATIVE NEGATIVE Whole blood basic metabolic panel - 03/20 16:05 Serum or plasma sodium measurement (moles/volume) 140 mmol/L 135-145 Serum or plasma potassium measurement (moles/volume) 3.3 mmol/L 3.6-5.0 Serum or plasma chloride measurement (moles/volume) 108 mmol/L 98-107 Carbon dioxide 22 mmol/L 21-32 Serum or plasma anion gap determination (moles/volume) 10 mmol/L 5-14 Serum or plasma urea nitrogen measurement (mass/volume ) 8 mg/dL 7-18 Serum or plasma creatinine measurement (mass/volume) 0.74 mg/dL 0.60-1.30 Serum or plasma urea nitrogen/creatinine mass ratio 11 NRG Serum or plasma creatinine measurement w ith calculation of estimated glomerular filtration rate > NRG Serum or plasma glucose measurement (mass/volume) 90 mg/dL 70-105 Serum or plasma calcium measurement (mass/volume) 9.2 mg/dL 8.5-10.1 Serum or plasma uric acid measurement (m ass/volume) - 08/09/18 16:05 Serum or plasma uric acid measurement (mass/volume) 5.8 mg/dL 2.6-7.2 Serum or plasma phosphate measurement (m ass/volume) - 08/09/18 16:05 Serum or plasma phosphate measurement (mass/volume) 2.4 mg/dL 2.3-4.7 CD3+CD4+ (T4 helper) cells/100 cells in blood - 08/16/18 12:20 Timed urine calcium measurement (mass/volume) 382 % < 250 Urine oxalate detection 43 < 45 Urine uric acid measurement (mass/volume) 886 % < 700 Urine citrate measurement (mass/volume) 991 % > 320 Urine pH measurement 6.9 5.5-7.0 24 hour urine specimen volume measurement 2.46 % > 2.00 Sodium urate/total calculus mass ratio by infrared spe ctroscopy 412 % < 200 Sulfites [presence] in urine by test strip 15 < 30 Urine phosphate measurement (mass/volume) 1046 % < 1100 Urine magnesium measurement (mass/volume) 114 % > 60 Urine calcium oxalate measurement 1.73 < 2.00 Urine calcium phosphate crystals detecti on by computer assisted method 3.63 < 2.00 24 hour urine sodium urate (saturation fraction) 4 .89 < 2.00 Triple phosphate crystals detection in u rine sediment by light microscopy 4.05 < 75.00 24 hour urine uric acid (saturation fraction) 0.22 < 2.00 Urine ammonium measurement 32 % 14- 62 Urine potassium measurement 61 % 19 -135 24 hour urine creatinine measurement (mass/time) 1 546 % 600- 1800 Clinical ladle liner helper review of results See Below NRG Urine beta human chorionic gonadotropin (hCG) measurement - 02/16/19 08:08 Urine beta human chorionic gonadotropin (hCG) measurem ent NEGATIVE NEGATIVE Complete urinalysis with reflex to cultu re - 02/16/19 08:08 Urine color determination YELLOW NRG Urine clarity determination CLEAR NR G Urine pH measurement by test strip 6 5-9 Specific gravity of urine by test strip 1.025 1.016-1.022 Urine protein assay by test strip, semi-quantitative 2+ NEGATIVE Urine glucose detection by automated test strip NE GATIVE NEGATIVE Erythrocytes detection in urine sediment by light micr oscopy 4+ NEGATIVE Urine ketones detection by automated test strip NE GATIVE NEGATIVE Urine nitrite detection by test strip NEGATIVE NEGATIVE Urine total bilirubin detection by test strip NEGA TIVE NEGATIVE Urine urobilinogen measurement by automated test strip (mass/volume) 1 mg/dL NORMAL Urine leukocyte esterase detection by dipstick 1+ NEGATIVE Automated urine sediment erythrocyte cou nt by microscopy (number/high power field) RARE NRG Automated urine sediment leukocyte count by microscopy (number/high power field) [HPF] NRG Bacteria detection in urine sediment by light microsco py TRACE NRG Squamous epithelial cells detection in u rine sediment by light microscopy 5-10 NRG Crystals detection in urine sediment by light microsco py PRESENT NRG Casts detection in urine sediment by light microscopy NONE NRG Mucus detection in urine sediment by light microscopy NEGATIVE NRG Complete urinalysis with reflex to culture YES NRG Amorphous sediment detection in urine sediment by ligh t microscopy MOD KELLY URATES NRG Bacterial urine culture - 02/16/19 08:08 Bacterial urine culture 3 OR MORE NRG COLONY COUNT 40,000 CFU/ML NRG FTX;REPORTABLE GRAM POSITIVE ISOLATES; SUGGESTING NRG FREE TEXT ENTRY 2 PROBABLE COLLECTION CONTAMINATIO N WITH NRG FREE TEXT ENTRY 3 SKIN DERIK. NO SUSCEPTIBILITY PE RFORMED. NRG CULTURE, URINE - 07/13/19 15:49 CULTURE, URINE, ROUTINE SEE NOTE NRG SUREPATH PAP RFX HPV mRNA E6/E7 - 15:49 CLINICAL INFORMATION: NRG LMP: NRG PREV. PAP: NRG PREV. BX: NRG SOURCE: Cervix NRG STATEMENT OF ADEQUACY: NRG INTERPRETATION/RESULT: NRG FIELD MARKETING MANAGER: NRG GENERAL CATEGORIZATION: NRG COMMENT: NR PATHOLOGIST: NRG COMMENT NRG CBC - 07/20/19 12:47 WHITE BLOOD CELL COUNT 6.8 Thousand/uL 3 .8-10.8 RED BLOOD CELL COUNT 4.65 Million/uL 3.8 0-5.10 HEMOGLOBIN 12.7 g/dL 11.7-15.5 HEMATOCRIT 39.2 % 35.0-45.0 MCV 84.3 fL 80.0-100.0 MCH 27.3 pg 27.0-33.0 MCHC 32.4 g/dL 32.0-36.0 RDW 11.5 % 11.0-15.0 PLATELET COUNT 419 Thousand/uL 140-400 MPV 9.5 fL 7.5-12.5 ABSOLUTE NEUTROPHILS 3794 cells/uL 1500- 7800 ABSOLUTE LYMPHOCYTES 2176 cells/uL 850-3 900 ABSOLUTE MONOCYTES 653 cells/uL 200-950 ABSOLUTE EOSINOPHILS 129 cells/uL 15-500 ABSOLUTE BASOPHILS 48 cells/uL 0-200 NEUTROPHILS 55.8 % NRG LYMPHOCYTES 32.0 % NRG MONOCYTES 9.6 % NRG EOSINOPHILS 1.9 % NRG BASOPHILS 0.7 % NRG BLOOD TPYE/RH FACTOR - 07/20/19 12:47 ABO GROUP A NRG RH TYPE RH(D) POSITIVE NRG ANTIBODY SCREEN - 07/20/19 12:47 ANTIBODY SCREEN, RBC W/REFL ID, TITER AND AG NO ANTIBODIES DETECTED NRG TSH - 07/20/19 12:47 TSH 1.72 mIU/L NRG RUBELLA IMMUNE STATUS - 07/20/19 12:47 RUBELLA ANTIBODY (IGG) 1.50 index NRG Methicillin resistant Staphylococcus aur eus (MRSA) screening culture - 08/24/19 11:25 Methicillin resistant Staphylococcus aureus (MRSA) scr eening culture NEG NRG Complete blood count (CBC) with automate d white blood cell (WBC) differential - 08/24/19 11:35 Blood leukocytes automated count (number/volume) 9.9 10*3/uL 4.3-11.0 Blood erythrocytes automated count (number/volume) 4.24 10*6/uL 4.35-5.85 Venous blood hemoglobin measurement (mass/volume) 11.5 g/dL 11.5-16.0 Blood hematocrit (volume fraction) 35 % 35-52 Automated erythrocyte mean corpuscular volume 82 [ foz_us] 80-99 Automated erythrocyte mean corpuscular h emoglobin (mass per erythrocyte) 27 pg 25-34 Automated erythrocyte mean corpuscular h emoglobin concentration measurement (mass/volume) 33 g/dL 32-36 Automated erythrocyte distribution width ratio 12. 7 % 10.0- 14.5 Automated blood platelet count (count/volume) 365 10*3/uL 130-400 Automated blood platelet mean volume measurement 8.7 [foz_us] 7.4-10.4 Automated blood neutrophils/100 leukocytes 69 % 42-75 Automated blood lymphocytes/100 leukocytes 20 % 12-44 Blood monocytes/100 leukocytes 8 % 0-12 Automated blood eosinophils/100 leukocytes 2 % 0-10 Automated blood basophils/100 leukocytes 0 % 0-10 Blood neutrophils automated count (number/volume) 6.9 10*3 1.8-7.8 Blood lymphocytes automated count (number/volume) 2.0 10*3 1.0-4.0 Blood monocytes automated count (number/volume) 0. 8 10*3 0.0-1.0 Automated eosinophil count 0.2 10*3/uL 0 .0-0.3 Automated blood basophil count (count/volume) 0.0 10*3/uL 0.0-0.1 Blood type T Indirect antibody screen pa onesimo - 08/24/19 11:35 WRISTBAND NUMBER [id number] NRG ABO+Rh group AP NRG Blood group antibody screen NEGATIVE NR G Complete urinalysis with reflex to cultu re - 01/11/20 19:48 Urine color determination YELLOW NRG Urine clarity determination CLEAR NR G Urine pH measurement by test strip 6.0 5-9 Specific gravity of urine by test strip >= 1.016-1.022 Urine protein assay by test strip, semi-quantitative NEGATIVE NEGATIVE Urine glucose detection by automated test strip NE GATIVE NEGATIVE Erythrocytes detection in urine sediment by light micr oscopy 3+ NEGATIVE Urine ketones detection by automated test strip NE GATIVE NEGATIVE Urine nitrite detection by test strip NEGATIVE NEGATIVE Urine total bilirubin detection by test strip NEGA TIVE NEGATIVE Urine urobilinogen measurement by automated test strip (mass/volume) 0.2 mg/dL < = 1.0 Urine leukocyte esterase detection by dipstick NEG ATIVE NEGATIVE Automated urine sediment erythrocyte cou nt by microscopy (number/high power field) > [HPF] NRG Automated urine sediment leukocyte count by microscopy (number/high power field) NONE NRG Bacteria detection in urine sediment by light microsco py FEW NRG Squamous epithelial cells detection in u rine sediment by light microscopy 2-5 NRG Crystals detection in urine sediment by light microsco py PRESENT NRG Casts detection in urine sediment by light microscopy NONE NRG Mucus detection in urine sediment by light microscopy NEGATIVE NRG Complete urinalysis with reflex to culture NO NRG Amorphous sediment detection in urine sediment by ligh t microscopy FEW KELLY URATES NRG Complete blood count (CBC) with automate d white blood cell (WBC) differential - 01/11/20 20:00 Blood leukocytes automated count (number/volume) 7.6 10*3/uL 4.3-11.0 Blood erythrocytes automated count (number/volume) 4.44 10*6/uL 4.35-5.85 Venous blood hemoglobin measurement (mass/volume) 12.2 g/dL 11.5-16.0 Blood hematocrit (volume fraction) 36 % 35-52 Automated erythrocyte mean corpuscular volume 81 [ foz_us] 80-99 Automated erythrocyte mean corpuscular h emoglobin (mass per erythrocyte) 28 pg 25-34 Automated erythrocyte mean corpuscular h emoglobin concentration measurement (mass/volume) 34 g/dL 32-36 Automated erythrocyte distribution width ratio 11. 9 % 10.0- 14.5 Automated blood platelet count (count/volume) 369 10*3/uL 130-400 Automated blood platelet mean volume measurement 8.7 [foz_us] 7.4-10.4 Automated blood neutrophils/100 leukocytes 47 % 42-75 Automated blood lymphocytes/100 leukocytes 41 % 12-44 Blood monocytes/100 leukocytes 9 % 0-12 Automated blood eosinophils/100 leukocytes 3 % 0-10 Automated blood basophils/100 leukocytes 0 % 0-10 Blood neutrophils automated count (number/volume) 3.6 10*3 1.8-7.8 Blood lymphocytes automated count (number/volume) 3.1 10*3 1.0-4.0 Blood monocytes automated count (number/volume) 0. 7 10*3 0.0-1.0 Automated eosinophil count 0.2 10*3/uL 0 .0-0.3 Automated blood basophil count (count/volume) 0.0 10*3/uL 0.0-0.1 Comprehensive metabolic panel - 01/11/20 20:00 Serum or plasma sodium measurement (moles/volume) 140 mmol/L 135-145 Serum or plasma potassium measurement (moles/volume) 3.7 mmol/L 3.6-5.0 Serum or plasma chloride measurement (moles/volume) 109 mmol/L 98-107 Carbon dioxide 20 mmol/L 21-32 Serum or plasma anion gap determination (moles/volume) 11 mmol/L 5-14 Serum or plasma urea nitrogen measurement (mass/volume ) 13 mg/dL 7-18 Serum or plasma creatinine measurement (mass/volume) 0.80 mg/dL 0.60-1.30 Serum or plasma urea nitrogen/creatinine mass ratio 16 NRG Serum or plasma creatinine measurement w ith calculation of estimated glomerular filtration rate > NRG Serum or plasma glucose measurement (mass/volume) 73 mg/dL 70-105 Serum or plasma calcium measurement (mass/volume) 9.2 mg/dL 8.5-10.1 Serum or plasma total bilirubin measurement (mass/volu me) 0.2 mg/dL 0.1-1.0 Serum or plasma alkaline phosphatase stacey surement (enzymatic activity/volume) 67 U/L 40-136 Serum or plasma aspartate aminotransfera se measurement (enzymatic activity/volume) 14 U/L 5-34 Serum or plasma alanine aminotransferase measurement (enzymatic activity/volume) 16 U/L 0-55 Serum or plasma protein measurement (mass/volume) 7.4 g/dL 6.4-8.2 Serum or plasma albumin measurement (mass/volume) 4.2 g/dL 3.2-4.5 CALCIUM CORRECTED 9.0 mg/dL 8.5-10.1 Serum or plasma choriogonadotropin measu rement (units/volume) - 01/11/20 20:00 Serum or plasma choriogonadotropin measurement (units/ volume) 1046 m[iU]/mL <5 Encounters ACCT No. Visit Date/Time Discharge Status Pt. Type Provider Facility Loc./Unit Complaint [id number] 11/13/2014 09:43:00 11/13/2014 23:59: 59 CLS Outpatient AYDIN WALSH DOA [place] [id number] 09/13/2014 08:06:00 09/13/2014 23:59: 59 CLS Outpatient PALOMA DAVILA APRN [id number] 07/17/2014 11:45:00 07/17/2014 23:59: 59 CLS Outpatient RONDA MCPHERSON MD [id number] 07/10/2014 08:18:00 07/10/2014 23:59: 59 CLS Outpatient CATARINA COFFEY MD [id number] 07/10/2014 08:18:00 07/10/2014 23:59: 59 CLS Outpatient CATARINA COFFEY MD [id number] 07/05/2014 14:34:00 07/05/2014 23:59: 59 CLS Outpatient RONDA MCPHERSON MD [id number] 06/27/2014 08:13:00 06/27/2014 23:59: 59 CLS Outpatient NORM MAR APRN [id number] 06/13/2014 14:45:00 06/13/2014 23:59: 59 CLS Outpatient RONDA MCPHERSON MD [id number] 05/08/2014 15:11:00 05/08/2014 23:59: 59 CLS Outpatient PILAR JUDD APRN [id number] 05/08/2014 13:30:00 05/08/2014 23:59: 59 CLS Outpatient PILAR JUDD APRN [id number] 05/02/2014 08:15:00 05/02/2014 23:59: 59 CLS Outpatient MILTON WALSH DO [place] [id number] 03/20/2014 18:25:00 03/20/2014 23:59: 59 CLS Outpatient NICO BETTSMILTON [id number] 01/30/2014 09:15:00 01/30/2014 23:59: 59 CLS Outpatient NICO BETTSMILTON [id number] 12/20/2013 08:52:00 12/20/2013 23:59: 59 CLS Outpatient CATARINA COFFEY MD [id number] 10/31/2013 08:08:00 10/31/2013 23:59: 59 CLS Outpatient RONDA MCPHERSON MD [id number] 08/31/2013 17:50:00 08/31/2013 23:59: 59 CLS Outpatient PALOMA DAVILA APRN [id number] 08/31/2013 17:50:00 08/31/2013 23:59: 59 CLS Outpatient PALOMA DAVILA APRN [id number] 07/24/2013 15:01:00 07/24/2013 23:59: 59 CLS Outpatient SHUN ABDULLAHI APRN [id number] 07/24/2013 15:01:00 07/24/2013 23:59: 59 CLS Outpatient SHUN ABDULLAHI APRN [id number] 06/23/2013 10:14:00 06/23/2013 23:59: 59 CLS Outpatient RONDA MCPHERSON MD [id number] 05/25/2013 14:49:00 05/25/2013 23:59: 59 CLS Outpatient RONDA MCPHERSON MD [id number] 05/19/2013 14:59:00 05/19/2013 23:59: 59 CLS Outpatient MILTON WALSH DO [id number] 04/28/2013 10:37:00 04/28/2013 23:59: 59 CLS Outpatient MILTON WALSH DO [id number] 04/20/2013 11:51:00 04/20/2013 23:59: 59 CLS Outpatient CATARINA COFFEY MD [id number] 10/13/2012 08:00:00 10/13/2012 23:59: 59 CLS Outpatient [id number] 10/12/2012 10:06:00 10/12/2012 23:59: 59 CLS Outpatient [id number] 09/15/2012 15:43:00 09/15/2012 23:59: 59 CLS Outpatient [id number] 09/05/2012 12:20:00 09/05/2012 23:59: 59 CLS Outpatient [id number] 08/31/2012 09:48:00 08/31/2012 23:59: 59 CLS Outpatient [id number] 07/20/2012 11:14:00 07/20/2012 23:59: 59 CLS Outpatient RONDA MCPHERSON MD [id number] 06/01/2012 08:10:00 06/01/2012 23:59:5 9 CLS Outpatient MILTON WALSH DO [id number] 02/16/2013 12:48:00 Document Registration [id number] 01/13/2013 10:59:00 Document Registration [id number] 12/30/2012 13:24:00 Document Registration [id number] 12/27/2012 12:49:00 Document Registration [id number] 11/23/2012 09:34:00 Document Registration [id number] 08/24/2019 10:46:00 020 16:20:00 DIS Outpatient ISRAEL FLORES DO [facility] SDC MISSED AB [id number] 08/22/2019 12:17:00 23:59:59 CLS Outpatient FLORES DO ISRAEL C [facility] RAD ACCIDENTAL ANTEPARTUM H EMORRHAGE FIRST TRIMESTER [id number] 02/16/2019 07:42:00 10:03:00 DIS Emergency GRETEL WEINER MD [facility] ER LOWER BACK PAIN [id number] 11/08/2018 00:16:00 23:59:59 CLS Preadmit VICTOR MANUEL VICENTE, AURORA Loya ia [facility] RAD RENAL STONES [id number] 08/09/2018 15:41:00 019 00:01:00 DIS Outpatient AURORA RUSH MD [facility] RAD RENAL STONES [id number] 05/19/2018 08:06:00 13:05:00 DIS Outpatient BRO OWENS MD [facility] REHAB L KNEE PAIN [id number] 04/27/2018 08:47:00 018 00:01:00 DIS Outpatient BRO OWENS MD [facility] REHAB L KNEE PAIN [id number] 03/25/2018 21:42:00 018 22:31:00 DIS Emergency RIDGE RUIZ APRN [facility] ER L KNEE INJ [id number] 12/17/2017 01:00:00 018 02:15:00 DIS Emergency GRETEL WEINER MD [facility] ER CAN'T SWALLOW,COUGH,POS S FEVER,VOMITING [id number] 11/12/2017 15:58:00 018 23:59:59 CLS Outpatient AURORA RUSH MD [facility] RAD FLANK PAIN [id number] 11/03/2017 21:59:00 018 23:15:00 DIS Emergency NIKKY FRANCO MD [facility] ER BACK PAIN [id number] 09/29/2017 09:30:00 018 23:59:59 CLS Preadmit AURORA RUSH MD, V ia [facility] SDC LEFT URETERAL STONE [id number] 09/28/2017 13:57:00 018 23:59:59 CLS Outpatient AURORA RUSH MD [facility] RAD N20.0 [id number] 09/27/2017 05:40:00 018 12:44:00 DIS Outpatient AURORA RUSH MD [facility] PREOP LEFT URETERAL STONE [id number] 09/23/2017 13:21:00 018 23:59:59 CLS Outpatient AURORA RUSH MD [facility] RAD LT URETERAL STONE [id number] 09/21/2017 12:00:00 018 13:39:00 DIS Emergency POLLO RUIZ [facility] ER LEFT SIDE PAIN [id number] 12/08/2016 13:28:00 017 15:17:00 DIS Emergency POLLO RUIZ [facility] ER RIGHT PINKIE TOE INJURY [id number] 07/01/2016 00:10:00 23:59:59 CLS Preadmit VICTOR MANUEL VICENTE, AURORA Loya ia [facility] LAB STONES [id number] 04/05/2016 16:33:00 016 00:01:00 DIS Outpatient VICTOR MANUEL VICENTE, AURORA Richter [facility] LAB STONES [id number] 03/18/2016 11:02:00 15:40:00 DIS Outpatient VICTOR MANUEL VICENTE, AURORA Richter [facility] SDC LEFT STONE [id number] 03/16/2016 15:03:00 15:35:00 DIS Outpatient VICTOR MANUEL VICENTE, AURORA Richter [facility] PREOP LEFT STONE [id number] 03/12/2016 12:55:00 15:45:00 DIS Emergency JERRY VICENTE, ROBBIE Burrell [facility] ER LEFT FLANK PAIN [id number] 02/21/2016 14:24:00 016 15:02:00 DIS Emergency RIDGE RUIZ APRN [facility] ER LEFT FLANK PAIN [id number] 11/11/2015 15:26:00 23:59:59 CLS Outpatient MICHELLE VICENTE, AGNES [facility] LAB RENAL CALCULUS [id number] 10/21/2015 08:26:00 016 11:03:00 DIS Emergency NIKKY FRANCO MD [facility] ER FLANK PAIN [id number] 02/14/2015 11:04:00 015 13:22:00 DIS Emergency WILTON ISM [facility] ER ABD PAIN/VOMITING [id number] 07/10/2014 10:20:00 014 16:41:00 DIS Inpatient WALTER DO, MICHELLE V ia [facility] 4TH FLANK PAIN,UTI,N/V [id number] 07/06/2014 18:41:00 23:05:00 DIS Emergency WILTON SIM [facility] ER FLANK PAIN;PAIN URINAT ING [id number] 05/11/2013 18:47:00 013 23:59:59 CLS Outpatient NICK JEONG [facility] RAD XRAY RT HAND [id number] 01/11/2020 20:09:00 Document Registration [id number] 06/16/2012 16:00:00 Document Registration [id number] 02/04/2012 11:21:00 Document Registration [id number] 11/06/2011 12:15:00 Document Registration [id number] 07/20/2019 12:40:00 07/20/2019 23:59:5 9 CLS Outpatient KANWAL POSEY [facility] [id number] 07/20/2019 13:30:00 Document Registration [id number] 07/13/2019 14:20:00 Document Registration
== END 2020-01-11 21:00 | disposition home or self-care (01) ==
LOC: EDUNIT# 19:27 → ER 19:29
DX: O20.0 Threatened abortion (principal); Z3A.01 Less than 8 weeks gestation of pregnancy; Z87.59 Personal history of other complications of pregnancy, childbirth and the puerperium; Z88.1 Allergy status to other antibiotic agents; Z88.5 Allergy status to narcotic agent; Z82.49 Family history of ischemic heart disease and other diseases of the circulatory system
CPT/HCPCS: 36415; 80053; 81000; 84702; 84703; 85025; 99282

== ENCOUNTER → 2021-12-02 | Outpatient (CLI) | payer MEDICAID ==
[~2021-12-02] MED LIST changes: -CIPR500T4 PO; +CIPR500T5 PO; +CYCL10TA25 PO; -CYCL10TA9 PO; -SULF1TAB35 PO
[2021-12-02 14:15] LABS: BASOPHILS % (AUTO) 1 % (0-10); EOSINOPHILS # (AUTO) 0.1 10^3/uL (0.0-0.3); EOSINOPHILS % (AUTO) 2 % (0-10); HEMATOCRIT 40 % (35-52); LYMPHOCYTES # (AUTO) 2.3 10^3/uL (1.0-4.0); LYMPHOCYTES % (AUTO) 28 % (12-44); MEAN CORPUSCULAR HEMOGLOBIN 27 pg (25-34); MEAN CORPUSCULAR HGB CONC 33 g/dL (32-36); MEAN CORPUSCULAR VOLUME 83 fL (80-99); MEAN PLATELET VOLUME 9.5 fL (9.0-12.2); MONOCYTES # (AUTO) 0.6 10^3/uL (0.0-1.0); MONOCYTES % (AUTO) 7 % (0-12); NEUTROPHILS # (AUTO) 5.3 10^3/uL (1.8-7.8); NEUTROPHILS % (AUTO) 63 % (42-75); PLATELET COUNT 454 10^3/uL (130-400); WHITE BLOOD COUNT 8.5 10^3/uL (4.3-11.0)
[2021-12-02 14:27] LABS: ALANINE AMINOTRANSFERASE 13 U/L (0-55); ALBUMIN 4.7 GM/DL (3.2-4.5); ALKALINE PHOSPHATASE 77 U/L (40-136); BILIRUBIN,TOTAL 0.6 MG/DL (0.1-1.0); BUN/CREATININE RATIO 12; CALCIUM 9.6 MG/DL (8.5-10.1); CARBON DIOXIDE 21 MMOL/L (21-32); CHLORIDE 107 MMOL/L (98-107); CREATININE SERUM 0.74 MG/DL (0.60-1.30); GFR ESTIMATED 117; GLUCOSE 92 MG/DL (70-105); POTASSIUM 3.7 MMOL/L (3.6-5.0); SODIUM 140 MMOL/L (135-145); TOTAL PROTEIN 7.7 GM/DL (6.4-8.2)
== END ==
LOC: LABNPT 13:53
PROVIDERS: ATTEND Obstetrics & Gynecology
DX: Z01.419 Encounter for gynecological examination (general) (routine) without abnormal findings (principal); Z11.3 Encounter for screening for infections with a predominantly sexual mode of transmission; N91.2 Amenorrhea, unspecified
CPT/HCPCS: 80053; 83001; 83002; 84443; 85025; 86644; 86645; 86695; 86696; 86762; 86777; 86778; 87491; 87591

== ENCOUNTER 2022-01-01 13:22 | Emergency (ER) | payer MEDICAID ==
[2022-01-01] MEDS ORDERED: NS IV 1000 ML 1,000 ML IV STA (13:35)
--- NOTE | 2022-01-01 13:39 | ED Abdominal Pain ---
General Chief Complaint: Abdominal/GI Problems Stated Complaint: KNIGHT,DIARRHEA,N/V Source of Information: Patient Exam Limitations: No Limitations History of Present Illness Date Seen by Provider: Jan 01, 2022 Time Seen by Provider: 13:36 Initial Comments Patient is a 21-year-old female who presents to the ED by POV for dehydration, vomiting diarrhea. Symptoms started last night. She reports at least 7+ episodes of bilious vomiting since 5:00 this morning. Several bouts of diarrhea without any blood or mucus. She states she has generalized headache with body aches fatigue and weakness. Symptoms started yesterday evening. Denies of any recent travels or eating anything differently. She has no cough, chest pain, abdominal pain, dysuria, hematuria. Decreased urine output. Has not been able to eat or drink. She states every time she opens her eyes she feels like she is going to pass out. Denies visual changes, sore throat, ear pain, neck pain, focal neural deficits Allergies and Home Medications Allergies Coded Allergies: levofloxacin (Verified Allergy, Severe, 12/08/16) tramadol (Verified Allergy, Unknown, HIVES, 07/10/14) Patient Home Medication List Home Medication List Reviewed: Yes Acetaminophen (Acetaminophen) 500 Mg Tablet, 1,000 MG PO Q8H PRN for PAIN-MILD (1-4) Prescribed by: ISRAEL FLORES on 08/24/19 1340 Ibuprofen (Ibu) 600 Mg Tablet, 600 MG PO Q6HR Prescribed by: ISRAEL FLORES on 08/24/19 1340 Ondansetron (Ondansetron Odt) 4 Mg Tab.rapdis, 4 MG PO Q4H Prescribed by: OSIRIS RAMOS on 01/01/22 1436 Oxycodone Hcl (Oxycodone IR) 5 Mg Tab, 5 MG PO Q4H PRN for PAIN-SEVERE (8-10) Prescribed by: ISRAEL FLORES on 08/24/19 1340 Review of Systems Review of Systems Constitutional: chills, malaise EENTM: No Blurred Vision, No Double Vision, No Mouth Pain, No Throat Pain, No Throat Swelling Respiratory: Denies Cough, Denies Shortness of Air Cardiovascular: Denies Chest Pain, Denies Edema Gastrointestinal: Abdominal Pain, Diarrhea, Nausea, Vomiting Musculoskeletal: No back pain, No joint pain Skin: No change in color, No change in hair/nails Psychiatric/Neurological: Denies Anxiety, Denies Depressed All Other Systems Reviewed Negative Unless Noted: Yes Past Qpstizz-Gcxacd-Hafqve Hx Patient Social History Tobacco Use?: No Substance use?: Yes Substance type: Marijuana Substance frequency: Several times a month Alcohol Use?: Yes Alcohol type: Wine Alcohol Frequency: Rarely Pt feels they are or have been: No Immunizations Up To Date Tetanus Booster (TDap): Less than 5yrs PED Vaccines UTD: Yes Influenza Vaccine Up-to-Date: No; Not Current Seasonal Allergies Seasonal Allergies: Yes Past Medical History Surgery/Hospitalization HX: ASTHMA SX- LITHOTRIPSY, D&C, THUMB Surgeries: Yes (R THUMB/TORN LIGAMENTS AND TENDONS, LITHOTRIPSY; D&C) Orthopedic, Renal Respiratory: Yes Asthma Currently Using CPAP: No Currently Using BIPAP: No Cardiac: No Neurological: No Reproductive Disorders: No Sexually Transmitted Disease: No HIV/AIDS: No Genitourinary: Yes Kidney Stones Gastrointestinal: No Musculoskeletal: Yes (R THUMB) Fractures Endocrine: No HEENT: No Loss of Vision: Denies Hearing Impairment: Denies Cancer: No Psychosocial: No Integumentary: No Blood Disorders: No Family Medical History Cardiovascular disease 19 FATHER Hypertension 19 FATHER Respiratory disorder 19 FATHER No Pertinent Family Hx Physical Exam Vital Signs Vital Signs - First Documented 01/01/22 13:27 Temp 36.0 Pulse 81 Resp 16 B/P (MAP) 137/99 (112) Capillary Refill : Height/Weight/BMI Height: 5'3.00" Weight: 165lbs. 0.0oz. 74.595065gb; 26.00 BMI Method:Stated General Appearance: WD/WN, no apparent distress HEENT: PERRL/EOMI, normal ENT inspection, TMs normal, pharynx normal Neck: non-tender, full range of motion, supple, normal inspection Respiratory: chest non-tender, lungs clear, normal breath sounds, no respiratory distress, no accessory muscle use Cardiovascular: regular rate, rhythm, no edema, no gallop, no JVD Gastrointestinal: normal bowel sounds, non tender, soft, no organomegaly, no pulsatile mass Extremities: normal range of motion, non-tender, normal inspection, no pedal edema, no calf tenderness Back: normal inspection, no CVA tenderness Neurologic/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: 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, no motor/sensory deficits, alert, normal mood/affect, oriented x 3 Skin: normal color, warm/dry Progress/Results/Core Measures Results/Orders Lab Results Laboratory Tests Test 01/01/22 13:32 01/01/22 13:33 01/01/22 13:38 Range/Units White Blood Count 6.9 4.3-11.0 10^3/uL Red Blood Count 5.11 3.80-5.11 10^6/uL Hemoglobin 13.7 11.5-16.0 g/dL Hematocrit 42 35-52 % Mean Corpuscular Volume 83 80-99 fL Mean Corpuscular Hemoglobin 27 25-34 pg Mean Corpuscular Hemoglobin Concent 33 32-36 g/dL Red Cell Distribution Width 12.0 10.0-14.5 % Platelet Count 361 130-400 10^3/uL Mean Platelet Volume 9.1 9.0-12.2 fL Immature Granulocyte % (Auto) 0 % Neutrophils (%) (Auto) 72 42-75 % Lymphocytes (%) (Auto) 17 12-44 % Monocytes (%) (Auto) 9 0-12 % Eosinophils (%) (Auto) 2 0-10 % Basophils (%) (Auto) 0 0-10 % Neutrophils # (Auto) 5.0 1.8-7.8 10^3/uL Lymphocytes # (Auto) 1.2 1.0-4.0 10^3/uL Monocytes # (Auto) 0.6 0.0-1.0 10^3/uL Eosinophils # (Auto) 0.1 0.0-0.3 10^3/uL Basophils # (Auto) 0.0 0.0-0.1 10^3/uL Immature Granulocyte # (Auto) 0.0 0.0-0.1 10^3/uL Sodium Level 138 135-145 MMOL/L Potassium Level 3.9 3.6-5.0 MMOL/L Chloride Level 105 98-107 MMOL/L Carbon Dioxide Level 23 21-32 MMOL/L Anion Gap 10 5-14 MMOL/L Blood Urea Nitrogen 9 7-18 MG/DL Creatinine 0.71 0.60-1.30 MG/DL Estimat Glomerular Filtration Rate 122 BUN/Creatinine Ratio 13 Glucose Level 96 70-105 MG/DL Calcium Level 9.3 8.5-10.1 MG/DL Corrected Calcium 9.0 8.5-10.1 MG/DL Total Bilirubin 1.0 0.1-1.0 MG/DL Aspartate Amino Transf (AST/SGOT) 16 5-34 U/L Alanine Aminotransferase (ALT/SGPT) 16 0-55 U/L Alkaline Phosphatase 75 40-136 U/L Total Protein 7.6 6.4-8.2 GM/DL Albumin 4.4 3.2-4.5 GM/DL Lipase 9 8-78 U/L Influenza Type A (RT-PCR) Not Detected Not Detecte Influenza Type B (RT-PCR) Not Detected Not Detecte SARS-CoV-2 RNA (RT-PCR) Not Detected Not Detecte Urine Color YELLOW Urine Clarity SL CLOUDY Urine pH 6.0 5-9 Urine Specific [place] >=1.030 1.016-1.022 Urine Protein NEGATIVE NEGATIVE Urine Glucose (UA) NEGATIVE NEGATIVE Urine Ketones 1+ H NEGATIVE Urine Nitrite NEGATIVE NEGATIVE Urine Bilirubin NEGATIVE NEGATIVE Urine Urobilinogen 0.2 < = 1.0 MG/DL Urine Leukocyte Esterase NEGATIVE NEGATIVE Urine RBC (Auto) NEGATIVE NEGATIVE Urine RBC NONE /HPF Urine WBC RARE /HPF Urine Squamous Epithelial Cells 25-50 H /HPF Urine Crystals NONE /LPF Urine Bacteria MODERATE H /HPF Urine Casts NONE /LPF Urine Mucus MODERATE H /LPF Urine Culture Indicated NO Urine Test NEGATIVE NEGATIVE My Orders Orders - JAYLIN ALLEN Covid 19 Inhouse Test (01/01/22 13:25) Influenza A And B By Pcr (01/01/22 13:25) Cbc With Automated Diff (01/01/22 13:35) Comprehensive Metabolic Panel (01/01/22 13:35) Lipase (01/01/22 13:35) Ua Culture If Indicated (01/01/22 13:35) Hcg,Qualitative Urine (01/01/22 13:35) Ns Iv 1000 Ml (Sodium Chloride 0.9%) (01/01/22 13:35) Ondansetron Injection (Zofran Injectio (01/01/22 13:45) Ketorolac Injection (Toradol Injection) (01/01/22 14:45) Diphenhydramine Injection (Benadryl Inje (01/01/22 14:45) Medications Given in ED Current Medications Medications Dose Ordered Sig/Cecilia Route Start Time Stop Time Status Last Admin Dose Admin Diphenhydramine HCl 25 mg ONCE ONCE IVP 01/01/22 14:45 01/01/22 14:46 DC 01/01/22 14:46 25 MG Ketorolac Tromethamine 30 mg ONCE ONCE IVP 01/01/22 14:45 01/01/22 14:46 DC 01/01/22 14:46 30 MG Ondansetron HCl 4 mg ONCE ONCE IVP 01/01/22 13:45 01/01/22 13:46 DC 01/01/22 13:47 4 MG Vital Signs/I&O 01/01/22 01/01/22 13:27 15:22 Temp 36.0 36.0 Pulse 81 78 Resp 16 16 B/P (MAP) 137/99 (112) 135/87 Departure Communication (PCP) Patient on arrival no acute distress. Stable vital signs. No abdominal t enderness on palpation. Urinalysis was negative for or strong evidence of infection. Squamous cells noted in the urine. She has no urinary symptoms. Lab work was otherwise unremarkable. Normal COVID, influenza. She has no shortness of breath. She had no abdominal tenderness on palpation. Patient was given liter fluid, Zofran and medication for her headache. She had no meningeal signs. Afebrile. Symptoms seem to be more viral in nature. Patient was tolerating p.o. fluids at bedside. Discussed discharging with Zofran. Recommend oral hydration. No evidence of surgical abdomen. If any worsening symptoms return back to ED for further evaluation. Impression Primary Impression: Vomiting and diarrhea Disposition: 01 HOME, SELF-CARE Condition: Stable Departure-Patient Inst. Decision time for Depature: 14:35 Referrals: [facility]ALICE (PCP) Primary Care Physician REYNALDO OCHOA APRN (Family) Primary Care Physician Patient Instructions: Nausea and Vomiting, Adult ED Add. Discharge Instructions: Recommend sticking to clear liquids for the next 24 to 48 hours. May work to a bland diet after that. Zofran for nausea. Recommend oral hydration such as Pedialyte, electrolytes, water. Recommend rest. If any worsening symptoms return back to ED for further evaluation All discharge instructions reviewed with patient and/or family. Voiced understanding. Scripts Ondansetron (Ondansetron Odt) 4 Mg Tab.rapdis 4 MG PO Q4H, #8 TAB Prov: JAYLIN ALLEN 01/01/22 Work/School Note: Work Release Form Date Seen in the Emergency Department: Jan 01, 2022 Return to Work: Jan 04, 2022 JAYLIN ALLEN Jan 01, 2022 13:39
[2022-01-01 13:41] LABS: BASOPHILS % (AUTO) 0 % (0-10); EOSINOPHILS # (AUTO) 0.1 10^3/uL (0.0-0.3); EOSINOPHILS % (AUTO) 2 % (0-10); HEMATOCRIT 42 % (35-52); HEMOGLOBIN 13.7 g/dL (11.5-16.0); LYMPHOCYTES # (AUTO) 1.2 10^3/uL (1.0-4.0); LYMPHOCYTES % (AUTO) 17 % (12-44); MEAN CORPUSCULAR HEMOGLOBIN 27 pg (25-34); MEAN CORPUSCULAR HGB CONC 33 g/dL (32-36); MEAN CORPUSCULAR VOLUME 83 fL (80-99); MEAN PLATELET VOLUME 9.1 fL (9.0-12.2); MONOCYTES # (AUTO) 0.6 10^3/uL (0.0-1.0); MONOCYTES % (AUTO) 9 % (0-12); NEUTROPHILS % (AUTO) 72 % (42-75); PLATELET COUNT 361 10^3/uL (130-400); WHITE BLOOD COUNT 6.9 10^3/uL (4.3-11.0)
[2022-01-01] MEDS ORDERED: ONDANSETRON 4 MG/2 ML (SDV) Z0FRAN IVP ONE (13:45)
[2022-01-01 13:46] LABS: BILIRUBIN,URINE NEGATIVE (NEGATIVE); CLARITY,URINE SL CLOUDY; COLOR,URINE YELLOW; GLUCOSE, URINE (UA) NEGATIVE (NEGATIVE); KETONES,URINE 1+ (NEGATIVE); LEUKOCYTE ESTERASE ,URINE NEGATIVE (NEGATIVE); NITRITE,URINE NEGATIVE (NEGATIVE); PROTEIN,URINE NEGATIVE (NEGATIVE)
[2022-01-01 13:56] LABS: ALBUMIN 4.4 GM/DL (3.2-4.5); POTASSIUM 3.9 MMOL/L (3.6-5.0)
[2022-01-01 13:58] LABS: CALCIUM 9.3 MG/DL (8.5-10.1)
[2022-01-01 13:59] LABS: TOTAL PROTEIN 7.6 GM/DL (6.4-8.2)
[2022-01-01 14:02] LABS: CREATININE SERUM 0.71 MG/DL (0.60-1.30)
[2022-01-01 14:05] LABS: BACTERIA,URINE MODERATE /HPF; SQUAMOUS EPITHELIAL CELL,UR 25-50 /HPF; WBC,URINE RARE /HPF
[2022-01-01] MEDS ORDERED: ONDA4TAB11 PO (14:36)
[2022-01-01] MEDS ORDERED: KETOROLAC 30 MG/ML VIAL IVP ONE (14:45)
[2022-01-01] MEDS ORDERED: diphenhydrAMINE 50 MG/ML INJ (BENADRYL) IVP ONE (14:45)
[2022-01-01 15:22] VITALS: BP 135/87
== END 2022-01-01 15:23 | disposition home or self-care (01) ==
LOC: EDUNIT# 13:22 → ER 13:23
DX: R19.7 Diarrhea, unspecified (principal); R11.10 Vomiting, unspecified; Z20.822 Contact with and (suspected) exposure to COVID-19
CPT/HCPCS: 36415; 80053; 81000; 83690; 84703; 85025; 87636

== ENCOUNTER → 2022-10-05 | Outpatient (CLI) | payer MEDICAID | LOC: LABNPT 09:54 | PROVIDERS: ATTEND Obstetrics & Gynecology | DX: O13.9 Gestational [pregnancy-induced] hypertension without significant proteinuria, unspecified trimester (principal); Z3A.00 Weeks of gestation of pregnancy not specified | CPT/HCPCS: 82570; 84156 ==

== ENCOUNTER → 2022-10-12 | Outpatient (CLI) | payer MEDICAID ==
[~2022-10-12] MED LIST changes: +BUDE10.26; +CETI10TA17; +FLUT16SP22; +MONT-40; +PREN1TAB79 PO
== END ==
LOC: LABNPT 11:06
PROVIDERS: ATTEND Nurse Practitioner Women's Health
DX: O13.9 Gestational [pregnancy-induced] hypertension without significant proteinuria, unspecified trimester (principal); Z3A.00 Weeks of gestation of pregnancy not specified
CPT/HCPCS: 82570; 84156

== ENCOUNTER 2022-10-14 15:21 | Inpatient (IN) | payer MEDICAID ==
[~2022-10-14] VITALS: Ht 162.6 cm; Wt 92.9 kg
[2022-10-14] VITALS (12 sets, daily range): BP systolic 136–179; BP diastolic 71–99
[~2022-10-14 15:21] MED LIST changes: -BUDE10.26; -CETI10TA17; -FLUT16SP22; -HYDR-3817 PO; -MONT-40; -PREN1TAB79 PO
[2022-10-14] MEDS ORDERED: BUDE10.26 (16:05)
[2022-10-14] MEDS ORDERED: FLUT16SP22 (16:05)
[2022-10-14] MEDS ORDERED: PREN1TAB79 PO (16:05)
[2022-10-14] MEDS ORDERED: CETI10TA17 (16:05)
[2022-10-14] MEDS ORDERED: MONT-40 (16:05)
[2022-10-14] MEDS ORDERED: LACTATED RINGERS 1,000 ML IV SCH (17:00)
[2022-10-14] MEDS ORDERED: MINERAL OIL 30 ML UDC TOP PRN (17:00)
[2022-10-14] MEDS ORDERED: LIDOCAINE 1% INJ 20 ML VIAL IJ PRN (17:00)
[2022-10-14] MEDS: D5 LR IV SOLUTION 1,000 ML IV SCH (18:54)
[2022-10-14] MEDS: CATHETER FLUSH 10 ML SYR IV SCH (22:00)
[2022-10-15] VITALS (25 sets, daily range): BP systolic 118–177; BP diastolic 60–98
[2022-10-15] MEDS: D5 LR IV SOLUTION 1,000 ML IV SCH ×2 (02:23→17:17)
[2022-10-15] MEDS ORDERED: RT-ALBUTEROL HFA 8.5 GM INHALER IH PRN (07:15)
[2022-10-15] MEDS ORDERED: HYDR-3817 PO (07:33)
--- NOTE | 2022-10-15 08:20 | History & Physical-OB ---
OB - Chief Complaint & HPI Date/Time Date of Admission: Date of Admission: Oct 14, 2022 at 16:54 Date seen by a Provider: Oct 14, 2022 (1940) Time Seen by a Provider: 19:40 Chief Complaint/History OB-Reason for Admission/Chief: Induction of Labor Hx : 3 Hx Para: 0 Expected Date of Delivery: Oct 23, 2022 Gestational Age in Weeks: 38 Gestational Age in Days: 5 Indication for induction: medical complication (GESTATIONAL HYPERTENSION) Admission Nurse Assessment Rev: Yes History of Labs MBT A POS PNAS NEG HBSAG NR HIV NR GC/CT NEG X 2 RUBELLA IMMUNE HCV NEG TSH NORMAL MSAFP NEG GBS NEG 1 HR GLUCOLA 80 ADMISSION LABS: WBC 10.5 H/H 9.7/31.0 [id number] AST/ALT 13/9 CR 0.70 P/C RATIO 0.13 Allergies and Home Medications Allergies Coded Allergies: levofloxacin (Verified Allergy, Severe, 12/08/16) tramadol (Verified Allergy, Unknown, HIVES, 07/10/14) Patient Home Medication List Home Medication List Reviewed: Yes Budesonide/Formoterol Fumarate (Budesonide-Formoterol 160-4.5) 160 Mcg-4.5 Mc g/Actuation Hfa.aer.ad, (Reported) Entered as Reported by: BARI MARTINEZ on 10/14/221604 Last Action: Converted Cetirizine HCl (Cetirizine HCl) 10 Mg Tablet, (Reported) Entered as Reported by: BARI MARTINEZ on 10/14/221604 Last Action: Held Fluticasone Propionate (Fluticasone Propionate) 50 Mcg/Actuation Avalon.susp, (Reported) Entered as Reported by: BARI MARTINEZ on 10/14/221604 Last Action: Continued Montelukast Sodium (Montelukast Sodium) 10 Mg Tablet, (Reported) Entered as Reported by: BARI MARTINEZ on 10/14/221604 Last Action: Continued Vit W-Ca,Fe,FA(<1 mg) ( Vitamins) 27 Mg Iron-800 Mcg Tablet, 1 EACH PO DAILY, (Reported) Entered as Reported by: BARI MARTINEZ on 10/14/221604 Last Action: Converted Discontinued Medications Acetaminophen (Acetaminophen) 500 Mg Tablet, 1,000 MG PO Q8H PRN for PAIN-MILD (1-4) Discontinued Reason: No Longer Taking Prescribed by: ISRAEL FLORES on 08/24/191339 Last Action: Discontinued Ibuprofen (Ibu) 600 Mg Tablet, 600 MG PO Q6HR Discontinued Reason: No Longer Taking Prescribed by: ISRAEL FLORES on 08/24/191339 Last Action: Discontinued Ondansetron (Ondansetron Odt) 4 Mg Tab.rapdis, 4 MG PO Q4H Discontinued Reason: No Longer Taking Prescribed by: OSIRIS RAMOS on 01/01/22 1436 Last Action: Discontinued Oxycodone Hcl (Oxycodone IR) 5 Mg Tab, 5 MG PO Q4H PRN for PAIN-SEVERE (8-10) Discontinued Reason: No Longer Taking Prescribed by: ISRAEL FLORES on 08/24/191339 Last Action: Discontinued OB - History Hx of Present Care: Yes Obstetrical Complications: Gestational Hypertension Medical Complications: Other (ASTHMA) Information Induced Hypertension: Yes Obstetrical History Hx : 3 Hx Para: 0 Hx Total # of Abortions (Spona: 2 Delivery History Hx Blood Disorders: No Patient Past Medical History Asthma: controlled with meds Social History/Family History Alcohol Use: Denies Use Recreational Drug Use: Yes 2nd Hand Smoke Exposure: Yes Immunizations Influenza Vaccine Up-to-Date: No; Not Current Hepatitis A: Yes Hepatitis B: Yes Tetanus Booster (TDap): Less than 5yrs OB - Admission Exam Physical Exam Vitals: Vital Signs 10/14/22 10/15/22 10/15/22 10/15/22 20:30 02:00 02:30 06:54 Temp 36.8 Pulse 82 Resp 18 B/P (MAP) 143/87 (105) Pulse Ox 98 O2 Delivery Room Air HEENT: Moist Membranes Lungs: Clear Abdomen: Gravid Extremities: Normal Reflexes: Normal Cervical Dilatation: 2cm Effacement: Other (30) Station: -3 Membranes: Intact Heart Rate: 130's Accelerations: Accelerations Present Decelerations: No Decelerations Short Term Variability: Present Cementer Machine Variability: Average (6-25) Contractions on Admission: 6-10 Minutes Apart Frequency of Contractions: IRREGULAR AND MILD Intensity: Mild [place] Scoring Tool (Modified) Dilation (cm): 1-2cm (1) Effacement (%): 0-30% (0) Descent/Station: -3 (0) Cervix Consistency: Firm (0) Cervix Position: Posterior (0) Labs Laboratory Tests Test 10/14/22 17:40 Range/Units OB - Assessment/Plan/Diagnosis Assessment Assessment: other ( @ 38 5/7 WITH GESTATIONAL HTN ADMITTED FOR CX RIPENING AND IOL. CYTOTEC 25 MCG VAGINALLY PLACED BY ME AT 1945 ON 10/14/22 (#1). GBS NEGATIVE. CATEGORY I FHR. PIH LABS NORMAL. DISCUSSED MEDICAL CONDITION WITH PATIENT. NO QUESTIONS OR CONCERNS VOICED. HX ASTHMA, CONTROLLED. AVOID HEMABATE.) Admission Dx # 38 5/7 WEEKS # GESTATIONAL HYPERTENSION Admission Status: Inpatient Order (span 2 midnights) Reason for Inpatient Admission: # 38 5/7 WEEKS # GESTATIONAL HYPERTENSION Plan Plan: Other ( ABOVE) Induction Method: per Misoprostol Protocol Reason for Induction: GESTATIONAL HYPERTENSION RA DESIR DO Oct 15, 2022 08:20
[2022-10-15] MEDS: PRENATAL VITAMIN 1 EA TAB PO SCH (08:30)
[2022-10-15] MEDS ORDERED: PATIENT MAY USE OWN MEDS, ALL MC SCH (08:30)
[2022-10-15] MEDS: MONTELUKAST 10 MG (SINGULAIR) TAB PO SCH (09:13)
[2022-10-15] MEDS: BUDESONIDE/FORMOTEROL 80/4.5 MCG INHALER IH SCH (09:14)
[2022-10-15] MEDS: FLUTICASONE NASAL SPRAY (FLONASE) 16 GM BTL NS SCH (09:14)
[2022-10-15] MEDS: CETIRIZINE 10MG TABLET PO SCH (10:44)
[2022-10-15] MEDS: CATHETER FLUSH 10 ML SYR IV SCH ×2 (14:00→23:15)
[2022-10-15] MEDS ORDERED: fentaNYL INJ 100 MCG/2 ML AMP IVP PRN (19:00)
[2022-10-16] VITALS (70 sets, daily range): BP systolic 111–184; BP diastolic 56–103
[2022-10-16 06:02] LABS: BASOPHILS % (AUTO) 0 % (0-10); EOSINOPHILS # (AUTO) 0.2 10^3/uL (0.0-0.3); EOSINOPHILS % (AUTO) 2 % (0-10); HEMATOCRIT 30 % (35-52); HEMOGLOBIN 9.9 g/dL (11.5-16.0); LYMPHOCYTES # (AUTO) 2.3 10^3/uL (1.0-4.0); LYMPHOCYTES % (AUTO) 19 % (12-44); MEAN CORPUSCULAR HEMOGLOBIN 27 pg (25-34); MEAN CORPUSCULAR HGB CONC 33 g/dL (32-36); MEAN CORPUSCULAR VOLUME 81 fL (80-99); MEAN PLATELET VOLUME 8.8 fL (9.0-12.2); MONOCYTES % (AUTO) 8 % (0-12); NEUTROPHILS # (AUTO) 8.4 10^3/uL (1.8-7.8); NEUTROPHILS % (AUTO) 70 % (42-75); PLATELET COUNT 314 10^3/uL (130-400); WHITE BLOOD COUNT 11.9 10^3/uL (4.3-11.0)
[2022-10-16 06:25] LABS: ALBUMIN 2.7 GM/DL (3.2-4.5); BILIRUBIN,TOTAL 0.3 MG/DL (0.1-1.0); CALCIUM 8.6 MG/DL (8.5-10.1); CREATININE SERUM 0.69 MG/DL (0.60-1.30); POTASSIUM 3.4 MMOL/L (3.6-5.0); TOTAL PROTEIN 5.8 GM/DL (6.4-8.2); URIC ACID 4.7 MG/DL (2.6-7.2)
[2022-10-16] MEDS: CATHETER FLUSH 10 ML SYR IV SCH ×2 (06:37→14:00)
[2022-10-16] MEDS: PRENATAL VITAMIN 1 EA TAB PO SCH (07:00)
[2022-10-16] MEDS: BUDESONIDE/FORMOTEROL 80/4.5 MCG INHALER IH SCH (08:00)
[2022-10-16] MEDS: FLUTICASONE NASAL SPRAY (FLONASE) 16 GM BTL NS SCH (09:00)
[2022-10-16] MEDS ORDERED: OXYTOCIN PRE-MIX DRIP 500 ML IV SCH (09:30)
[2022-10-16] MEDS ORDERED: OXYTOCIN PRE-MIX DRIP 500 ML IV ONE (09:35)
[2022-10-16] MEDS ORDERED: LABETALOL HCL 20 MG/4 ML VIAL ONE (10:25)
[2022-10-16] MEDS ORDERED: LABETALOL HCL 20 MG/4 ML VIAL IV ONE (10:30)
--- NOTE | 2022-10-16 10:54 | Labor Progress Note ---
Labor Progress Note Labor Progress Note Date Seen by Provider: Oct 16, 2022 Time Seen by Provider: 09:20 Subjective: Pt denies complaints. BP overnight stable. Preeclamptic labs stable. Patient is now day #3 of cervical ripening/IOL with cytotec started evening of 10/14/22 with cytotec 25 mcg q4 hours. Cx now 2-3/50/-3/VTX/BOWI @ 0923 hours...AROM clear at that time with IUPC placed at that time. Pitocin started also. BP occcasionally in severe range overnight but improved with position. BP now persistently in severe range requiring a single dose of IV Labetalol 20 mg IV and now 150s/80s. Also starting IV Magnesium Sulfate prophylaxis at this time (4 gm bolus followed by 1 gm/hour). Objective: (Can we insert 24 hour vitals here?) Cervical exam: 2-3 Consistency: soft Position: mid Presentation: [] heart tones: 130, moderate variability, +accels, no decels Tocometer: contractions q 3 minutes currently slightly less than 180 MVUs Assessment/Plan: Cedric Goyal is a (24 /Para 3 / 0 at 39 weeks with gestational HTN admitted for cx ripening/IOL with vaginal cytotec. Day #3 of vaginal cytotec 25 mcg q4h (started evening of 10/14/22). Now cervix 2-3/50/-3 with AROM clear and IUPC @ 0923 hours, on Pitocin augmentation. Labetalol 20 mg IV just now for persistent severe range BP to which BP now back down to 150s/80s. Starting IV Magnesium Sulfate prophylaxis (4 gm bolus followed by 1 gm per hour) GBS negative Discussed labor pain control with IV meds and/or epidural. Patient understands condition and no questions or concerns voiced at this time. Vitals - Labs Vital Signs - I&O Vital Signs Date Time Temp Pulse Resp B/P (MAP) Pulse Ox O2 Delivery O2 Flow Rate FiO2 10/16/22 06:00 36.2 18 Room Air 10/16/22 05:30 71 18 133/63 (86) Room Air 10/16/22 05:00 80 18 165/93 (117) Room Air 10/16/22 04:30 18 Room Air 10/16/22 04:00 18 Room Air 10/16/22 03:30 18 Room Air 10/16/22 03:00 18 Room Air 10/16/22 02:30 18 Room Air 10/16/22 02:00 18 Room Air 10/16/22 01:30 74 18 142/72 (95) Room Air 10/16/22 01:00 36.7 73 18 160/83 (108) Room Air 10/16/22 00:30 18 Room Air 10/16/22 00:00 18 Room Air 10/15/22 23:30 18 Room Air 10/15/22 23:00 18 Room Air 10/15/22 22:30 18 Room Air 10/15/22 22:00 18 Room Air 10/15/22 21:30 18 Room Air 10/15/22 21:00 85 18 146/86 (106) Room Air 10/15/22 20:30 101 18 167/93 (117) Room Air 10/15/22 20:00 75 18 175/93 (120) Room Air 10/15/22 19:30 36.0 82 18 162/92 (115) Room Air 10/15/22 18:05 36.4 92 18 124/79 (94) Room Air 10/15/22 17:05 93 18 143/84 (103) Room Air 10/15/22 16:30 36.2 10/15/22 16:05 91 18 152/86 (108) Room Air 10/15/22 14:05 93 18 143/81 (101) Room Air 10/15/22 13:10 80 18 146/84 (104) Room Air 10/15/22 13:07 86 18 177/89 (118) Room Air 10/15/22 12:05 36.8 90 18 140/86 (104) Room Air 10/15/22 11:00 96 18 155/87 (109) Room Air Labs Laboratory Tests 10/16/22 05:00: White Blood Count 11.9H, Red Blood Count 3.74L, Hemoglobin 9.9L, Hematocrit 30L, Mean Corpuscular Volume 81, Mean Corpuscular Hemoglobin 27, Mean Corpuscular Hemoglobin Concent 33, Red Cell Distribution Width 12.8, Platelet Count 314, Mean Platelet Volume 8.8L, Immature Granulocyte % (Auto) 1, Neutrophils (%) (Auto) 70, Lymphocytes (%) (Auto) 19, Monocytes (%) (Auto) 8, Eosinophils (%) (Auto) 2, Basophils (%) (Auto) 0, Neutrophils # (Auto) 8.4H, Lymphocytes # (Auto) 2.3, Monocytes # (Auto) 1.0, Eosinophils # (Auto) 0.2, Basophils # (Auto) 0.0, Immature Granulocyte # (Auto) 0.1 10/16/22 05:54: Sodium Level 140, Potassium Level 3.4L, Chloride Level 111H, Carbon Dioxide Level 19L, Anion Gap 10, Blood Urea Nitrogen 5L, Creatinine 0.69, Estimat Glomerular Filtration Rate 124, BUN/Creatinine Ratio 7, Glucose Level 85, Uric Acid 4.7, Calcium Level 8.6, Corrected Calcium 9.6, Total Bilirubin 0.3, Aspartate Amino Transf (AST/SGOT) 12, Alanine Aminotransferase (ALT/SGPT) 8, Alkaline Phosphatase 154H, Total Protein 5.8L, Albumin 2.7L RA DESIR Oct 16, 2022 10:54
[2022-10-16] MEDS ORDERED: CALCIUM GLUC. 10% 4.65 MEQ/10 ML VIAL IV SCH (11:00)
[2022-10-16] MEDS ORDERED: MAGNESIUM 4 GM/100 ML IVPB 100 ML IV ONE (11:05)
[2022-10-16] MEDS: MAGNESIUM SULFATE DRIP 500 ML IV SCH (11:45)
[2022-10-16] MEDS: D5 LR IV SOLUTION 1,000 ML IV SCH ×2 (15:21→20:20)
[2022-10-16] MEDS ORDERED: fentaNYL 2 mcg/ml BUPIVA 0.125 100 ML ONE (16:08)
[2022-10-16] MEDS ORDERED: ONDANSETRON 4 MG/2 ML (SDV) Z0FRAN IV PRN (16:45)
[2022-10-16] MEDS ORDERED: fentaNYL 2 mcg/ml BUPIVA 0.125 100 ML IV SCH (16:45)
[2022-10-16] MEDS ORDERED: NALOXONE 0.4 MG/ML 1 ML (NARCAN) VIAL IV PRN ×2 (16:45→23:00)
[2022-10-16] MEDS ORDERED: CATHETER FLUSH 10 ML SYR IV PRN (16:45)
[2022-10-16] MEDS ORDERED: LACTATED RINGERS 1,000 ML IV ONE (16:45)
[2022-10-16] MEDS ORDERED: fentaNYL INJ 100 MCG/2 ML AMP ONE (16:52)
[2022-10-16] MEDS: CETIRIZINE 10MG TABLET PO SCH (18:40)
[2022-10-16] MEDS ORDERED: LIDOCAINE 1% INJ 10 ML VIAL ONE (21:05)
--- NOTE | 2022-10-16 22:30 | OB Labor & Delivery Record ---
Vag Delivery Note Vag Delivery Note Date of Delivery: 10/16/22 Preoperative Diagnosis: Cedric Goyal is a (24 /Para 3 / 0,Gestational Age (wks)39 weeks Postoperative Diagnosis: Preeclampsia with severe features Surgeon: RA DESIR Psychiatric Nurse: None Anesthesia: Epidural Delivery Type: Findings: Viable male infant, apgars 8/9, weight pending Lacerations: None Intact placenta with 3 vessel cord. Loose nuchal cord x 1, body cord or shoulder dystocia Estimated Blood Loss: 25 ml (twenty five, minimal) Complications: None Condition: Stable Description of Procedure: Complete: 2106 Baby: 2207: [id number] (Spontaneous and Intact on exam) Comments. Cord clamped x 2 after 1 minute, then cord cut and rapid IV Pitocin infusion started, uterus massaged by me and firm. Placenta delivered easily. No lacerations of cervix or vagina or perineum. No blood in bag. EBL minimal, truly <25 mL. Mother and baby doing well. Will do 2nd bag of IV Pitocin. Repeat CBC and PIH panel in AM. Continue IV Magnesium Sulfate for 24 hours. Vitals - Labs Vital Signs - I&O Vital Signs Date Time Temp Pulse Resp B/P (MAP) Pulse Ox O2 Delivery O2 Flow Rate FiO2 10/16/22 20:30 97 140/74 (96) 100 Room Air 10/16/22 20:13 98 16 134/71 (92) 100 Room Air 10/16/22 19:58 102 147/77 (100) 100 Room Air 10/16/22 19:44 90 20 138/68 (91) 99 Room Air 10/16/22 19:28 88 140/69 (92) 100 Room Air 10/16/22 19:15 89 18 135/70 (91) 98 Non Rebreather 15.00 10/16/22 19:00 85 18 111/58 (75) 98 Room Air 10/16/22 18:45 85 18 116/58 (77) 99 Room Air 10/16/22 18:30 93 18 117/56 (76) 99 Room Air 10/16/22 18:15 93 18 127/58 (81) 99 Room Air 10/16/22 18:00 91 18 131/67 (88) 99 Room Air 10/16/22 17:45 87 18 124/61 (82) 100 Room Air 10/16/22 17:40 82 18 126/59 (81) 99 Room Air 10/16/22 17:35 83 18 131/61 (84) 99 Room Air 10/16/22 17:30 36.7 89 18 125/64 (84) 100 Room Air 10/16/22 17:25 87 18 134/69 (90) 99 Room Air 10/16/22 17:20 99 18 133/65 (87) 98 Room Air 10/16/22 17:15 88 18 133/62 (85) 100 Room Air 10/16/22 17:10 98 18 136/68 (90) 98 Room Air 10/16/22 17:05 89 18 127/62 (83) 98 Room Air 10/16/22 17:00 86 18 131/67 (88) 100 Room Air 10/16/22 16:56 86 18 130/68 (88) 98 Room Air 10/16/22 16:53 90 18 132/74 (93) 98 Room Air 10/16/22 16:50 83 18 135/74 (94) 98 Room Air 10/16/22 16:47 85 18 123/71 (88) Room Air 10/16/22 16:45 81 18 153/75 (101) 100 Room Air 10/16/22 16:30 89 18 152/79 (103) 100 Room Air 10/16/22 16:15 89 18 172/81 (111) 100 Room Air 10/16/22 16:00 88 18 160/85 (110) 100 Room Air 10/16/22 15:45 92 18 143/88 (106) 100 Room Air 10/16/22 15:30 83 18 154/87 (109) 100 Room Air 10/16/22 15:15 36.6 77 18 131/77 (95) 100 Room Air 10/16/22 15:00 75 18 137/69 (91) 100 Room Air 10/16/22 14:45 77 18 155/75 (101) 99 Room Air 10/16/22 14:30 73 18 148/82 (104) 99 Room Air 10/16/22 14:15 86 18 136/77 (96) 99 Room Air 10/16/22 14:00 76 18 139/76 (97) 99 Room Air 10/16/22 13:45 67 18 141/78 (99) 98 Room Air 10/16/22 13:30 74 18 141/76 (97) 98 Room Air 10/16/22 13:15 73 18 138/78 (98) 98 Room Air 10/16/22 13:00 36.1 74 18 146/81 (102) 100 Room Air 10/16/22 12:45 77 18 143/78 (99) 100 Room Air 10/16/22 12:30 74 18 144/72 (96) 98 Room Air 10/16/22 12:15 73 18 146/71 (96) 98 Room Air 10/16/22 12:00 36.7 81 18 124/67 (86) 98 Room Air 10/16/22 11:30 72 18 135/70 (91) 100 Room Air 10/16/22 11:15 75 18 156/88 (110) 100 Room Air 10/16/22 11:00 74 18 163/90 (114) 100 Room Air 10/16/22 10:45 77 18 153/83 (106) 100 Room Air 10/16/22 10:30 77 18 158/86 (110) 100 Room Air 10/16/22 10:15 68 18 172/95 (120) 100 Room Air 10/16/22 10:00 68 18 170/91 (117) 100 Room Air 10/16/22 09:45 36.6 83 18 184/103 (130) 100 Room Air 10/16/22 06:00 36.2 18 Room Air 10/16/22 05:30 71 18 133/63 (86) Room Air 10/16/22 05:00 80 18 165/93 (117) Room Air 10/16/22 04:30 18 Room Air 10/16/22 04:00 18 Room Air 10/16/22 03:30 18 Room Air 10/16/22 03:00 18 Room Air 10/16/22 02:30 18 Room Air 10/16/22 02:00 18 Room Air 10/16/22 01:30 74 18 142/72 (95) Room Air 10/16/22 01:00 36.7 73 18 160/83 (108) Room Air 10/16/22 00:30 18 Room Air 10/16/22 00:00 18 Room Air 10/15/22 23:30 18 Room Air 10/15/22 23:00 18 Room Air 10/15/22 22:30 18 Room Air Labs Laboratory Tests 10/16/22 05:00: White Blood Count 11.9H, Red Blood Count 3.74L, Hemoglobin 9.9L, Hematocrit 30L, Mean Corpuscular Volume 81, Mean Corpuscular Hemoglobin 27, Mean Corpuscular Hemoglobin Concent 33, Red Cell Distribution Width 12.8, Platelet Count 314, Mean Platelet Volume 8.8L, Immature Granulocyte % (Auto) 1, Neutrophils (%) (Auto) 70, Lymphocytes (%) (Auto) 19, Monocytes (%) (Auto) 8, Eosinophils (%) (Auto) 2, Basophils (%) (Auto) 0, Neutrophils # (Auto) 8.4H, Lymphocytes # (Auto) 2.3, Monocytes # (Auto) 1.0, Eosinophils # (Auto) 0.2, Basophils # (Auto) 0.0, Immature Granulocyte # (Auto) 0.1 10/16/22 05:54: Sodium Level 140, Potassium Level 3.4L, Chloride Level 111H, Carbon Dioxide Level 19L, Anion Gap 10, Blood Urea Nitrogen 5L, Creatinine 0.69, Estimat Glomerular Filtration Rate 124, BUN/Creatinine Ratio 7, Glucose Level 85, Uric Acid 4.7, Calcium Level 8.6, Corrected Calcium 9.6, Total Bilirubin 0.3, Aspartate Amino Transf (AST/SGOT) 12, Alanine Aminotransferase (ALT/SGPT) 8, Alkaline Phosphatase 154H, Total Protein 5.8L, Albumin 2.7L RA DESIR DO Oct 16, 2022 22:30
[2022-10-16] MEDS: OXYTOCIN PRE-MIX DRIP 500 ML IV SCH ×2 (23:06→23:07)
[2022-10-17] VITALS (22 sets, daily range): BP systolic 122–171; BP diastolic 58–107
[2022-10-17] MEDS: IBUPROFEN 600 MG (MOTRIN) TAB PO SCH ×5 (00:15→23:00)
[2022-10-17] MEDS: D5 LR IV SOLUTION 1,000 ML IV SCH ×2 (01:58→14:47)
[2022-10-17] MEDS: ACETAMINOPHEN 500 MG TAB (TYLENOL) PO SCH ×4 (01:58→19:00)
[2022-10-17] MEDS: MAGNESIUM SULFATE DRIP 500 ML IV SCH (05:52)
[2022-10-17 06:14] LABS: ALBUMIN 2.7 GM/DL (3.2-4.5); BILIRUBIN,TOTAL 0.2 MG/DL (0.1-1.0); CALCIUM 8.7 MG/DL (8.5-10.1); CREATININE SERUM 0.7 MG/DL (0.60-1.30); POTASSIUM 3.6 MMOL/L (3.6-5.0); TOTAL PROTEIN 5.7 GM/DL (6.4-8.2); URIC ACID 5.1 MG/DL (2.6-7.2)
[2022-10-17] MEDS: CATHETER FLUSH 10 ML SYR IV SCH ×2 (06:40→22:00)
[2022-10-17 06:44] LABS: BASOPHILS % (AUTO) 0 % (0-10); EOSINOPHILS % (AUTO) 0 % (0-10); HEMATOCRIT 30 % (35-52); HEMOGLOBIN 9.8 g/dL (11.5-16.0); LYMPHOCYTES # (AUTO) 2.2 10^3/uL (1.0-4.0); LYMPHOCYTES % (AUTO) 10 % (12-44); MEAN CORPUSCULAR HEMOGLOBIN 27 pg (25-34); MEAN CORPUSCULAR HGB CONC 33 g/dL (32-36); MEAN CORPUSCULAR VOLUME 80 fL (80-99); MONOCYTES # (AUTO) 1.7 10^3/uL (0.0-1.0); MONOCYTES % (AUTO) 8 % (0-12); NEUTROPHILS # (AUTO) 17.1 10^3/uL (1.8-7.8); NEUTROPHILS % (AUTO) 81 % (42-75); PLATELET COUNT 374 10^3/uL (130-400); WHITE BLOOD COUNT 21.2 10^3/uL (4.3-11.0)
[2022-10-17] MEDS: MONTELUKAST 10 MG (SINGULAIR) TAB PO SCH (09:00)
[2022-10-17] MEDS: PRENATAL VITAMIN 1 EA TAB PO SCH (09:24)
[2022-10-17] MEDS: DOCUSATE SODIUM 100 MG (COLACE) CAP PO SCH ×2 (09:24→21:00)
--- NOTE | 2022-10-17 09:35 | Postpartum Progress Note ---
Note Note Day # 1 Subjective: Patient is without complaints. Ambulating to bathroom with assistance. On IV Magnesium Sulfate with kumar until 2000 hours today, continues on 1 gm/hr Magnesium Sulfate. Tolerating a regular diet without nausea or vomiting. Normal lochia. Pain is well controlled with oral pain medications. No LAW WRITER symptoms. BPs have been in normal range overnight. HCT stable at 30%. Objective: VSS/AF Physical Exam: General - Alert and oriented, no apparent distress Abdomen - Soft, appropriately tender to palpation, non-distended, fundus firm at umbilicus-4 cm Extremities - no edema, negative Isaac's bilaterally Assessment: Post- day # 1, s/p vaginal delivery. Preeclampsia with severe features requiring 20 mg IV Labetalol during labor, BPs normal Plan: Continue IV Magnesium Sulfate and kumar until 2000 hours tonight then D/C Routine orders otherwise. Vitals - Labs Vital Signs - I&O Vital Signs Date Time Temp Pulse Resp B/P (MAP) Pulse Ox O2 Delivery O2 Flow Rate FiO2 10/17/22 06:30 36.8 90 16 131/58 (82) 98 Room Air 10/17/22 05:30 36.5 92 18 122/60 (80) 98 Room Air 10/17/22 04:30 36.9 99 18 137/77 (97) 98 Room Air 10/17/22 03:30 37.5 109 20 130/59 (82) 98 Room Air 10/17/22 01:23 37.0 109 20 142/77 (98) 98 Room Air 10/17/22 00:12 115 143/77 (99) 10/16/22 23:57 114 150/76 (100) 10/16/22 23:42 114 145/73 (97) 10/16/22 23:27 101 145/76 (99) 10/16/22 23:12 92 144/76 (98) 10/16/22 22:57 108 150/77 (101) 10/16/22 22:42 37.1 110 18 136/77 (96) Room Air 10/16/22 22:27 132/61 (84) 10/16/22 21:59 104 128/60 (82) 100 Room Air 10/16/22 21:43 100 144/70 (94) 100 Room Air 3/17/23 21:30 123 148/67 (94) 100 Room Air 10/16/22 21:13 115 153/83 (106) 100 Room Air 10/16/22 20:58 108 145/73 (97) 99 Room Air 10/16/22 20:43 104 145/75 (98) 100 Room Air 10/16/22 20:30 97 140/74 (96) 100 Room Air 10/16/22 20:13 98 16 134/71 (92) 100 Room Air 10/16/22 19:58 102 147/77 (100) 100 Room Air 10/16/22 19:44 90 20 138/68 (91) 99 Room Air 10/16/22 19:28 88 140/69 (92) 100 Room Air 10/16/22 19:15 89 18 135/70 (91) 98 Non Rebreather 15.00 10/16/22 19:00 85 18 111/58 (75) 98 Room Air 10/16/22 18:45 85 18 116/58 (77) 99 Room Air 10/16/22 18:30 93 18 117/56 (76) 99 Room Air 10/16/22 18:15 93 18 127/58 (81) 99 Room Air 10/16/22 18:00 91 18 131/67 (88) 99 Room Air 10/16/22 17:45 87 18 124/61 (82) 100 Room Air 10/16/22 17:40 82 18 126/59 (81) 99 Room Air 10/16/22 17:35 83 18 131/61 (84) 99 Room Air 10/16/22 17:30 36.7 89 18 125/64 (84) 100 Room Air 10/16/22 17:25 87 18 134/69 (90) 99 Room Air 10/16/22 17:20 99 18 133/65 (87) 98 Room Air 10/16/22 17:15 88 18 133/62 (85) 100 Room Air 10/16/22 17:10 98 18 136/68 (90) 98 Room Air 10/16/22 17:05 89 18 127/62 (83) 98 Room Air 10/16/22 17:00 86 18 131/67 (88) 100 Room Air 10/16/22 16:56 86 18 130/68 (88) 98 Room Air 10/16/22 16:53 90 18 132/74 (93) 98 Room Air 10/16/22 16:50 83 18 135/74 (94) 98 Room Air 10/16/22 16:47 85 18 123/71 (88) Room Air 10/16/22 16:45 81 18 153/75 (101) 100 Room Air 10/16/22 16:30 89 18 152/79 (103) 100 Room Air 10/16/22 16:15 89 18 172/81 (111) 100 Room Air 10/16/22 16:00 88 18 160/85 (110) 100 Room Air 10/16/22 15:45 92 18 143/88 (106) 100 Room Air 10/16/22 15:30 83 18 154/87 (109) 100 Room Air 10/16/22 15:15 36.6 77 18 131/77 (95) 100 Room Air 10/16/22 15:00 75 18 137/69 (91) 100 Room Air 10/16/22 14:45 77 18 155/75 (101) 99 Room Air 10/16/22 14:30 73 18 148/82 (104) 99 Room Air 10/16/22 14:15 86 18 136/77 (96) 99 Room Air 10/16/22 14:00 76 18 139/76 (97) 99 Room Air 10/16/22 13:45 67 18 141/78 (99) 98 Room Air 10/16/22 13:30 74 18 141/76 (97) 98 Room Air 10/16/22 13:15 73 18 138/78 (98) 98 Room Air 10/16/22 13:00 36.1 74 18 146/81 (102) 100 Room Air 10/16/22 12:45 77 18 143/78 (99) 100 Room Air 10/16/22 12:30 74 18 144/72 (96) 98 Room Air 10/16/22 12:15 73 18 146/71 (96) 98 Room Air 10/16/22 12:00 36.7 81 18 124/67 (86) 98 Room Air 10/16/22 11:30 72 18 135/70 (91) 100 Room Air 10/16/22 11:15 75 18 156/88 (110) 100 Room Air 10/16/22 11:00 74 18 163/90 (114) 100 Room Air 10/16/22 10:45 77 18 153/83 (106) 100 Room Air 10/16/22 10:30 77 18 158/86 (110) 100 Room Air 10/16/22 10:15 68 18 172/95 (120) 100 Room Air 10/16/22 10:00 68 18 170/91 (117) 100 Room Air 10/16/22 09:45 36.6 83 18 184/103 (130) 100 Room Air I & O 10/17/22 07:00 Intake Total 2000 ml Output Total 3453 ml Balance -1453 ml Labs Laboratory Tests 10/17/22 05:30: White Blood Count 21.2H, Red Blood Count 3.69L, Hemoglobin 9.8L, Hematocrit 30L, Mean Corpuscular Volume 80, Mean Corpuscular Hemoglobin 27, Mean Corpuscular Hemoglobin Concent 33, Red Cell Distribution Width 12.9, Platelet Count 374, Mean Platelet Volume 9.0, Immature Granulocyte % (Auto) 1, Neutrophils (%) (Auto) 81H, Lymphocytes (%) (Auto) 10L, Monocytes (%) (Auto) 8, Eosinophils (%) (Auto) 0, Basophils (%) (Auto) 0, Neutrophils # (Auto) 17.1H, Lymphocytes # (Auto) 2.2, Monocytes # (Auto) 1.7H, Eosinophils # (Auto) 0.0, Basophils # (Auto) 0.0, Immature Granulocyte # (Auto) 0.2H, Sodium Level 139, Potassium Level 3.6, Chloride Level 111H, Carbon Dioxide Level 17L, Anion Gap 11, Blood Urea Nitrogen 5L, Creatinine 0.70, Estimat Glomerular Filtration Rate 124, BUN/Creatinine Ratio 7, Glucose Level 84, Uric Acid 5.1, Calcium Level 8.7, Corrected Calcium 9.7, Total Bilirubin 0.2, Aspartate Amino Transf (AST/SGOT) 17, Alanine Aminotransferase (ALT/SGPT) 10, Alkaline Phosphatase 152H, Total Protein 5.7L, Albumin 2.7L RA DESIR DO Oct 17, 2022 09:35
[2022-10-17] MEDS ORDERED: MAGNESIUM 4 GM/100 ML IVPB 100 ML IV ONE (11:00)
--- NOTE | 2022-10-17 12:08 | Anesthesia-Regional Post-Op ---
Regional Patient Condition Mental Status: Alert, Oriented x3 Circulation: Same as Pre-Op Headache: Absent Sensation: Full Recovery Motor Block: Absent Post Op Complications Complications None Follow Up Care/Instructions Patient Instructions None needed. Anesthesia/Patient Condition Patient is doing well, no complaints, stable vital signs, no apparent adverse anesthesia problems. No complications reported per nursing. SARAH HERNANDEZ CRNA Oct 17, 2022 12:08
[2022-10-17] MEDS: FLUTICASONE NASAL SPRAY (FLONASE) 16 GM BTL NS SCH (18:11)
[2022-10-17] MEDS: BUDESONIDE/FORMOTEROL 80/4.5 MCG INHALER IH SCH (18:13)
[2022-10-17] MEDS: CETIRIZINE 10MG TABLET PO SCH (18:13)
[2022-10-17] MEDS: LABETALOL 200 MG (NORMODYNE) TAB PO SCH (22:20)
[2022-10-18] MEDS: ACETAMINOPHEN 500 MG TAB (TYLENOL) PO SCH ×2 (02:28→08:51)
[2022-10-18 02:29] VITALS: BP 177/107
[2022-10-18 02:53] VITALS: BP 164/89
[2022-10-18] MEDS: IBUPROFEN 600 MG (MOTRIN) TAB PO SCH (06:27)
[2022-10-18 06:59] VITALS: BP 133/65
[2022-10-18] MEDS: LABETALOL 200 MG (NORMODYNE) TAB PO SCH (08:50)
[2022-10-18] MEDS: PRENATAL VITAMIN 1 EA TAB PO SCH (08:50)
[2022-10-18] MEDS: DOCUSATE SODIUM 100 MG (COLACE) CAP PO SCH (08:50)
[2022-10-18 08:52] VITALS: BP 158/75
[2022-10-18] MEDS ORDERED: LABE200T10 PO (10:22)
[2022-10-18] MEDS ORDERED: ACET-2267 PO (10:22)
[2022-10-18] MEDS ORDERED: IBUP-1773 PO (10:22)
--- NOTE | 2022-10-18 10:31 | Short Stay Summary ---
Discharge Summary Hospital Course Was the Problem List Reviewed?: Yes Final Diagnosis: Preeclampsia with severe features Hospital Course Date of Admission: Oct 14, 2022 at 16:54 Admission Diagnosis : Gestational Hypertension Family Physician/Provider: Stephenie Garcia Smog Technician Date of Discharge: 10/18/22 Discharge Diagnosis: Preeclampsia with severe features Hospital Course: Patient admitted evening of 10/14/22 for cervical ripening and IOL with cytotec. AROM and Pitocin augmentation 10/16/22. Delivered viable over intact perineum and minimal EBL evening of 10/16/22. Patient received a single dose of IV Labetalol 20 mg during labor and placed on oral Labetalol 200 mg bid evening of 10/17/22 due to severe range BP. BP only mildly elevated at times on current regimen. She will take BP at home and will call clinic if severely elevated 160/110 or greater. Otherwise will follow up with Dr. Pardo office in 7-10 days for BP check. Uncomplicated course otherwise. Labs and Pending Lab Test: N/A Home Meds Active Tylenol Extra Strength (Acetaminophen) 500 Mg Tablet 500 Mg PO Q6H 15 Days Ibuprofen 600 Mg Tablet 600 Mg PO Q6H PRN 15 Days Labetalol HCl 200 Mg Tablet 200 Mg PO BID 30 Days Reported Vitamins ( Vit W-Ca,Fe,FA(<1 mg)) 27 Mg Iron-800 Mcg Tablet 1 Each PO DAILY Budesonide-Formoterol 160-4.5 (Budesonide/Formoterol Fumarate) 160 Mcg-4.5 Mcg/Actuation Hfa.aer.ad Montelukast Sodium 10 Mg Tablet Cetirizine HCl 10 Mg Tablet Fluticasone Propionate 50 Mcg/Actuation Odell.susp Assessment/Pt Instructions Vaginal rest x 6 weeks, no strenuous physical activity x 6 weeks. Check BP at home twice a day. Call clinic or L&D (after hours) if BP greater than 160/110. Follow up with Dr. Pardo office in 7-10 days for BP check, call for appoint ment. Discharge Instructions Discharge Diet: No Restrictions Activity as Tolerated: Yes Discharge Physical Examination General Appearance: Oriented X3 HEENT: Mucous Memb Moist/[place] Respiratory: Normal Air Movement Cardiovascular: Regular Rate Abdominal: No Tenderness Extremities: No Tenderness/Swelling Skin: No Rashes Neuro: Normal Gait Psych/Mental Status: Mental Status NL Allergies: Coded Allergies: levofloxacin (Verified Allergy, Severe, 12/08/16) tramadol (Verified Allergy, Unknown, HIVES, 07/10/14) Discharge Summary Date of Admission Oct 14, 2022 at 16:54 Date of Discharge RA DESIR DO Oct 18, 2022 10:28
[2022-10-20] MEDS ORDERED: LABE200T10 PO (09:14)
[2022-10-20] MEDS ORDERED: AMLO-250 PO (09:14)
[2022-10-20] MEDS ORDERED: FURO-125 PO (09:14)
== END 2022-10-18 12:10 | disposition home or self-care (01) | DRG 807 ==
LOC: WSo 15:21 → LDRP 15:21 → WSo 16:53 → LDRP 16:54
PROVIDERS: ADMIT Obstetrics & Gynecology; ATTEND Obstetrics & Gynecology
PROC: 3E0DXGC Introduction of Other Therapeutic Substance into Mouth and Pharynx, External Approach (ICD-10-PCS; 2022-10-14)
PROC: 10H07YZ Insertion of Other Device into Products of Conception, Via Natural or Artificial Opening (ICD-10-PCS; 2022-10-15)
PROC: 10E0XZZ Delivery of Products of Conception, External Approach (ICD-10-PCS; principal; 2022-10-16)
DX: O14.14 Severe pre-eclampsia complicating childbirth (principal); Z37.0 Single live birth; Z3A.38 38 weeks gestation of pregnancy; O99.52 Diseases of the respiratory system complicating childbirth; J45.909 Unspecified asthma, uncomplicated; O69.81X0 Labor and delivery complicated by cord around neck, without compression, not applicable or unspecified; Z88.1 Allergy status to other antibiotic agents; Z91.09 Other allergy status, other than to drugs and biological substances
CPT/HCPCS: 36415; 80053; 84550; 85025; 86780; 86850; 86900; 86901

== ENCOUNTER → 2022-10-14 | Outpatient (CLI) | payer MEDICAID ==
[~2022-10-14] MED LIST changes: +HYDR-3817 PO
== END ==
LOC: LABNPT 14:45
PROVIDERS: ATTEND Nurse Practitioner Women's Health
DX: O13.9 Gestational [pregnancy-induced] hypertension without significant proteinuria, unspecified trimester (principal); Z3A.00 Weeks of gestation of pregnancy not specified
CPT/HCPCS: 82570; 84156

== ENCOUNTER 2022-10-19 05:43 | Inpatient (IN) | payer MEDICAID ==
[2022-10-19] VITALS (16 sets, daily range): BP systolic 141–180; BP diastolic 73–102
[~2022-10-19] VITALS: Ht 162.6 cm; Wt 94.8 kg
[~2022-10-19 05:43] MED LIST changes: +ACET-2267 PO; +BUDE10.26; +CETI10TA17; +FLUT16SP22; +HYDR-3817 PO; +LABE200T10 PO; +MONT-40; +PREN1TAB79 PO
[2022-10-19] MEDS ORDERED: LABETALOL HCL 20 MG/4 ML VIAL IV ONE (06:15)
[2022-10-19] MEDS ORDERED: NS IV 1000 ML 1,000 ML IV SCH (06:15)
[2022-10-19 06:16] LABS: BASOPHILS # (AUTO) 0.1 10^3/uL (0.0-0.1); BASOPHILS % (AUTO) 0 % (0-10); EOSINOPHILS # (AUTO) 0.5 10^3/uL (0.0-0.3); EOSINOPHILS % (AUTO) 4 % (0-10); HEMATOCRIT 29 % (35-52); HEMOGLOBIN 9.4 g/dL (11.5-16.0); LYMPHOCYTES % (AUTO) 14 % (12-44); MEAN CORPUSCULAR HEMOGLOBIN 27 pg (25-34); MEAN CORPUSCULAR HGB CONC 32 g/dL (32-36); MEAN CORPUSCULAR VOLUME 82 fL (80-99); MEAN PLATELET VOLUME 8.7 fL (9.0-12.2); MONOCYTES # (AUTO) 0.8 10^3/uL (0.0-1.0); MONOCYTES % (AUTO) 5 % (0-12); NEUTROPHILS # (AUTO) 11.1 10^3/uL (1.8-7.8); NEUTROPHILS % (AUTO) 76 % (42-75); PLATELET COUNT 406 10^3/uL (130-400); WHITE BLOOD COUNT 14.5 10^3/uL (4.3-11.0)
[2022-10-19] MEDS ORDERED: LABETALOL HCL 20 MG/4 ML VIAL ONE (06:22)
[2022-10-19] MEDS ORDERED: CEFEPIME INJECTION 1,000 MG in NS (IVPB) 50 ML IV ONE (06:30)
[2022-10-19 06:37] LABS: CALCIUM 8.7 MG/DL (8.5-10.1); FIBRIN DEGRADATION PRODUCTS 2.5 UG/ML (0.00-0.49); INR 0.8 (0.8-1.4); PROTHROMBIN TIME PATIENT 11.4 SEC (12.2-14.7)
[2022-10-19 06:38] LABS: TOTAL PROTEIN 6.8 GM/DL (6.4-8.2)
[2022-10-19 06:40] LABS: BILIRUBIN,TOTAL 0.2 MG/DL (0.1-1.0); EOSINOPHILS % (MANUAL) 3 %; LYMPHOCYTES % (MANUAL) 14 %; MONOCYTES % (MANUAL) 4 %; NEUTROPHILS % (MANUAL) 79 %; RBC MORPH NORMAL
[2022-10-19 06:42] LABS: CREATININE SERUM 0.77 MG/DL (0.60-1.30)
[2022-10-19 06:44] LABS: MAGNESIUM 1.5 MG/DL (1.6-2.4)
--- NOTE | 2022-10-19 06:46 | Diagnostic Imaging Report ---
INDICATION: Chest pain and shortness of breath. Portable chest 6:07 AM Heart size and pulmonary vascularity are normal. There are no infiltrates, effusions or pneumothoraces. IMPRESSION: No acute abnormalities in the chest. Dictated by: Dictated on workstation # [id number]
[2022-10-19 07:29] LABS: BILIRUBIN,URINE NEGATIVE (NEGATIVE); CLARITY,URINE CLOUDY; COLOR,URINE ORANGE; GLUCOSE, URINE (UA) NEGATIVE (NEGATIVE); KETONES,URINE NEGATIVE (NEGATIVE); LEUKOCYTE ESTERASE ,URINE 2+ (NEGATIVE); NITRITE,URINE NEGATIVE (NEGATIVE); PH,URINE 6.5 (5-9); PROTEIN,URINE 1+ (NEGATIVE)
[2022-10-19] MEDS ORDERED: NS 100 ML (IVPB) BAG IV ONE (07:30)
[2022-10-19] MEDS ORDERED: HOLD METFORMIN - RECEIVED CONTRAST 20 ML VIAL IV SCH (07:30)
[2022-10-19] MEDS ORDERED: IOHEXOL 350 MG/ML 100 ML (OMNIPAQUE 350) VIAL IV ONE (07:30)
--- NOTE | 2022-10-19 07:36 | Diagnostic Imaging Report ---
PROCEDURE: CT angiography Chest TECHNIQUE: After intravenous administration of contrast, thin section axial CT angiography of the chest was performed. 3D MIP reconstructions were made. All CT scans use one or more of the following dose optimizing techniques: automated exposure control, MA and/or KvP adjustment based on a patient size and exam type, or iterative reconstruction. INDICATION: Shortness of breath and chest pain, . COMPARISON: None available. FINDINGS: Vasculature: No pulmonary emboli. No CT evidence of pulmonary hypertension or right ventricular strain. Thoracic aorta is normal in caliber. No aortic dissection or pseudoaneurysm. Heart and mediastinum: Visualized thyroid is normal. No supraclavicular, axillary, or intra-thoracic lymphadenopathy. Heart is mildly enlarged. There is no pericardial effusion. Pleura: Trace bilateral pleural effusions. No pneumothorax. Lungs and airway: No endoluminal lesion in the trachea or central bronchi. Smooth septal thickening with groundglass attenuation scattered throughout the lungs. Upper abdomen: Allowing for the phase of contrast, no acute abnormality in the upper abdomen is seen. Musculoskeletal: No concerning osseous lesion. IMPRESSION: 1. No pulmonary emboli. 2. Mild pulmonary edema. 3. Trace bilateral pleural effusions. Dictated by: Dictated on workstation # [id number]
[2022-10-19] MEDS ORDERED: FUROSEMIDE 40 MG/4 ML INJ (LASIX) IVP ONE (07:45)
[2022-10-19 07:52] LABS: BACTERIA,URINE FEW /HPF; RBC,URINE >100 /HPF
--- NOTE | 2022-10-19 08:01 | ED General ---
General Chief Complaint: Respiratory Problems Stated Complaint: SOB Nursing Triage Note: PATIENT ARRIVED WITH COMPLAINT OF SOB, STATES HX OF ASTHMA. PATIENT STATES TOOK BX AT HOME PRIOR TO ARRIVAL. PATIENT VERBALIZED POST PARDIUM X3 DAYS STATES DELIVERY ON WEDNESDAY, RELEASED FROM HOSPITAL WITH PO MED FOR HTN. STATES HAS TAKEN ONE DOSE. PATIENT VERBALIZED SHE IS DIZZY Source of Information: Patient, Old Records History of Present Illness Date Seen by Provider: Oct 19, 2022 Time Seen by Provider: 06:06 Initial Comments PT ARRIVES VIA POV FROM HOME PT WAS ADMITTED LAST Wednesday10/14/22 FOR PRE-ECLAMPSIA, AND DELIVERED ON WEDNESDAY VIA , AND DISMISSED YESTERDAY WITH RX FOR ORAL LABETALOL . [place] WOKE UP AT 0500 SHORT OF BREATH AND HAVING DIFFUSE CHEST PAIN RATES PAIN 10/10 SHE HAS HISTORY OF ASTHMA AND USED HER ALBUTEROL INHALER TWICE THIS MORNING WITHOUT RELIEF. SHE HAS HAD CONTINUED LEG SWELLING. NO COUGH NO FEVER NO NAUSEA/VOMITING SLIGHT HEADACHE, AND HAS BEEN DIZZY THIS MORNING NO VISION CHANGES NO PARESTHESIAS OR MOTOR DEFICITS SHE HAS NOT TAKEN HER MORNING LABETALOL TODAY. SHE SMOKES MARIJUANA ON A DAILY BASIS, INCLUDING LAST NIGHT / THIS MORNING. 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 ABERNATHY Allergies and Home Medications Allergies Coded Allergies: levofloxacin (Verified Allergy, Severe, 12/08/16) tramadol (Verified Allergy, Unknown, HIVES, 07/10/14) Patient Home Medication List Acetaminophen (Tylenol Extra Strength) 500 Mg Tablet, 500 MG PO Q6H Prescribed by: Antonino Whitlock on 10/18/22 1022 Budesonide/Formoterol Fumarate (Budesonide-Formoterol 160-4.5) 160 Mcg-4.5 Mcg/Actuation Hfa.aer.ad, (Reported) Entered as Reported by: BARI MARTINEZ on 10/14/22 1605 Cetirizine HCl (Cetirizine HCl) 10 Mg Tablet, (Reported) Entered as Reported by: BARI MARTINEZ on 10/14/22 1605 Fluticasone Propionate (Fluticasone Propionate) 50 Mcg/Actuation [place].susp, (Reported) Entered as Reported by: BARI MARTINEZ on 10/14/22 1605 Ibuprofen (Ibuprofen) 600 Mg Tablet, 600 MG PO Q6H PRN for PAIN-MILD Prescribed by: Antonino Whitlock on 10/18/22 1022 Labetalol HCl (Labetalol HCl) 200 Mg Tablet, 200 MG PO BID Prescribed by: Antonino Whitlock on 10/18/22 1022 Montelukast Sodium (Montelukast Sodium) 10 Mg Tablet, (Reported) Entered as Reported by: BARI MARTINEZ on 10/14/22 1605 Vit W-Ca,Fe,FA(<1 mg) ( Vitamins) 27 Mg Iron-800 Mcg Tablet, 1 EACH PO DAILY, (Reported) Entered as Reported by: BARI MARTINEZ on 10/14/22 1605 Discontinued Medications Acetaminophen (Acetaminophen) 500 Mg Tablet, 1,000 MG PO Q8H PRN for PAIN-MILD (1-4) Discontinued Reason: No Longer Taking Prescribed by: ISRAEL FLORES on 08/24/19 1340 Ibuprofen (Ibu) 600 Mg Tablet, 600 MG PO Q6HR Discontinued Reason: No Longer Taking Prescribed by: ISRAEL FLORES on 08/24/19 1340 Ondansetron (Ondansetron Odt) 4 Mg Tab.rapdis, 4 MG PO Q4H Discontinued Reason: No Longer Taking Prescribed by: OSIRIS RAMOS on 01/01/22 1436 Oxycodone Hcl (Oxycodone IR) 5 Mg Tab, 5 MG PO Q4H PRN for PAIN-SEVERE (8-10) Discontinued Reason: No Longer Taking Prescribed by: ISRAEL FLORES on 08/24/19 1340 Review of Systems Review of Systems Constitutional: see HPI, dizziness; No fever EENTM: no symptoms reported Respiratory: see HPI, orthopnea, short of breath Cardiovascular: see HPI, chest pain, edema; No palpitations, No syncope Gastrointestinal: no symptoms reported; No abdominal pain, No nausea, No vomiting Genitourinary: see HPI Musculoskeletal: no symptoms reported Skin: no symptoms reported Psychiatric/Neurological: Anxiety Hematologic/Lymphatic: No Symptoms Reported Immunological/Allergic: no symptoms reported Past Wfgajep-Wvsnij-Wqdsoc Hx Patient Social History Tobacco Use?: No Substance use?: Yes Substance type: Marijuana Substance frequency: Daily Alcohol Use?: No Immunizations Up To Date Tetanus Booster (TDap): Less than 5yrs PED Vaccines UTD: Yes Seasonal Allergies Seasonal Allergies: Yes Past Medical History Surgery/Hospitalization HX: ASTHMA SX- LITHOTRIPSY, D&C, THUMB Surgeries: Yes (R THUMB/TORN LIGAMENTS AND TENDONS, LITHOTRIPSY; D&C) Orthopedic, Renal Respiratory: Yes Asthma Currently Using CPAP: No Currently Using BIPAP: No Cardiac: Yes (PRE-ECLAMPSIA) Neurological: No : No Hx : 3 Hx Para: 1 Hx Total # of Abortions (Sp): 2 Reproductive Disorders: No Sexually Transmitted Disease: No HIV/AIDS: No Genitourinary: Yes (S/P LITHOTRIPSY) Kidney Stones Gastrointestinal: No Musculoskeletal: Yes (R THUMB) Fractures Endocrine: No HEENT: No Loss of Vision: Denies Hearing Impairment: Denies Cancer: No Psychosocial: No Integumentary: No Blood Disorders: No Family Medical History Cardiovascular disease 19 FATHER Hypertension 19 FATHER Respiratory disorder 19 FATHER No Pertinent Family Hx SOCIAL HISTORY: -DENIES SMOKING CIGARETTES -DRUGS--SMOKES MARIJUANA DAILY -ETOH--DENIES USE PAST SURGICAL HISTORY: -D&C X 1 -LITHOTRIPSY -RIGHT THUMB SURGERY -RIGHT KNEE ARTHROSCOPY Physical Exam Vital Signs Vital Signs - First Documented 10/19/22 06:00 O2 Flow Rate 3.00 Capillary Refill : Less Than 3 Seconds Height, Weight, BMI Height: 5'3.00" Weight: 165lbs. 0.0oz. 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 Norm as Tested Skin: Normal Color, Warm/Dry; No Rash Focused Exam Lactate Level 10/19/22 06:37: Lactic Acid Level 1.05 Lactic Acid Level Laboratory Tests Test 10/19/22 06:37 Lactic Acid Level 1.05 MMOL/L (0.50-2.00) Progress/Results/Core Measures Suspected Sepsis SIRS Temperature: Pulse: 84 Respiratory Rate: 26 Laboratory Tests 10/19/22 06:05: White Blood Count 14.5H Blood Pressure 185 /118 Mean: 140 10/19/22 06:37: Lactic Acid Level 1.05 Laboratory Tests 10/19/22 06:05: Creatinine 0.77, INR Comment 0.8, Platelet Count 406H, Total Bilirubin 0.2 Results/Orders Lab Results Laboratory Tests Test 10/19/22 06:05 10/19/22 06:12 10/19/22 06:37 10/19/22 07:23 Range/Units White Blood Count 14.5 H 4.3-11.0 10^3/uL Red Blood Count 3.53 L 3.80-5.11 10^6/uL Hemoglobin 9.4 L 11.5-16.0 g/dL Hematocrit 29 L 35-52 % Mean Corpuscular Volume 82 80-99 fL Mean Corpuscular Hemoglobin 27 25-34 pg Mean Corpuscular Hemoglobin Concent 32 32-36 g/dL Red Cell Distribution Width 13.3 10.0-14.5 % Platelet Count 406 H 130-400 10^3/uL Mean Platelet Volume 8.7 L 9.0-12.2 fL Immature Granulocyte % (Auto) 1 % Neutrophils (%) (Auto) 76 H 42-75 % Lymphocytes (%) (Auto) 14 12-44 % Monocytes (%) (Auto) 5 0-12 % Eosinophils (%) (Auto) 4 0-10 % Basophils (%) (Auto) 0 0-10 % Neutrophils # (Auto) 11.1 H 1.8-7.8 10^3/uL Lymphocytes # (Auto) 2.0 1.0-4.0 10^3/uL Monocytes # (Auto) 0.8 0.0-1.0 10^3/uL Eosinophils # (Auto) 0.5 H 0.0-0.3 10^3/uL Basophils # (Auto) 0.1 0.0-0.1 10^3/uL Immature Granulocyte # (Auto) 0.1 0.0-0.1 10^3/uL Neutrophils % (Manual) 79 % Lymphocytes % (Manual) 14 % Monocytes % (Manual) 4 % Eosinophils % (Manual) 3 % Blood Morphology Comment NORMAL Prothrombin Time 11.4 L 12.2-14.7 SEC INR Comment 0.8 0.8-1.4 Activated Partial Thromboplast Time 35 24-35 SEC D-Dimer 2.50 H 0.00-0.49 UG/ML Sodium Level 140 135-145 MMOL/L Potassium Level 4.0 3.6-5.0 MMOL/L Chloride Level 109 H 98-107 MMOL/L Carbon Dioxide Level 18 L 21-32 MMOL/L Anion Gap 13 5-14 MMOL/L Blood Urea Nitrogen 9 7-18 MG/DL Creatinine 0.77 0.60-1.30 MG/DL Estimat Glomerular Filtration Rate 110 BUN/Creatinine Ratio 12 Glucose Level 80 70-105 MG/DL Calcium Level 8.7 8.5-10.1 MG/DL Corrected Calcium 9.5 8.5-10.1 MG/DL Magnesium Level 1.5 L 1.6-2.4 MG/DL Total Bilirubin 0.2 0.1-1.0 MG/DL Aspartate Amino Transf (AST/SGOT) 30 5-34 U/L Alanine Aminotransferase (ALT/SGPT) 19 0-55 U/L Alkaline Phosphatase 124 40-136 U/L Troponin I 0.055 H <0.028 NG/ML B-Type Natriuretic Peptide 448.6 H <100.0 PG/ML Total Protein 6.8 6.4-8.2 GM/DL Albumin 3.0 L 3.2-4.5 GM/DL Influenza Type A (RT-PCR) Not Detected Not Detecte Influenza Type B (RT-PCR) Not Detected Not Detecte SARS-CoV-2 RNA (RT-PCR) Not Detected Not Detecte Lactic Acid Level 1.05 0.50-2.00 MMOL/L Urine Color ORANGE Urine Clarity CLOUDY Urine pH 6.5 5-9 Urine Specific [place] 1.015 L 1.016-1.022 Urine Protein 1+ H NEGATIVE Urine Glucose (UA) NEGATIVE NEGATIVE Urine Ketones NEGATIVE NEGATIVE Urine Nitrite NEGATIVE NEGATIVE Urine Bilirubin NEGATIVE NEGATIVE Urine Urobilinogen 0.2 < = 1.0 MG/DL Urine Leukocyte Esterase 2+ H NEGATIVE Urine RBC (Auto) 3+ H NEGATIVE Urine RBC >100 H /HPF Urine WBC 5-10 H /HPF Urine Squamous Epithelial Cells 2-5 /HPF Urine Crystals NONE /LPF Urine Bacteria FEW H /HPF Urine Casts NONE /LPF Urine Mucus NEGATIVE /LPF Urine Culture Indicated CULTURE PENDING Urine Opiates Screen NEGATIVE NEGATIVE Urine Oxycodone Screen NEGATIVE NEGATIVE Urine Methadone Screen NEGATIVE NEGATIVE Urine Propoxyphene Screen NEGATIVE NEGATIVE Urine Barbiturates Screen NEGATIVE NEGATIVE Ur Tricyclic Antidepressants Screen NEGATIVE NEGATIVE Urine Phencyclidine Screen NEGATIVE NEGATIVE Urine Amphetamines Screen NEGATIVE NEGATIVE Urine Methamphetamines Screen NEGATIVE NEGATIVE Urine Benzodiazepines Screen NEGATIVE NEGATIVE Urine Cocaine Screen NEGATIVE NEGATIVE Urine Cannabinoids Screen NEGATIVE NEGATIVE Test 10/19/22 08:16 Range/Units Troponin I 0.065 H <0.028 NG/ML My Orders Orders - LISA ARTIS DO Ed Iv/Invasive Line Start (10/19/22 06:06) Ekg Tracing (10/19/22 06:06) O2 (10/19/22 06:06) Monitor-Rhythm Ecg Trace Only (10/19/22 06:06) Bnp Cyndi (10/19/22 06:06) Cbc With Automated Diff (10/19/22 06:06) Comprehensive Metabolic Panel (10/19/22 06:06) Fibrin Degradation Products (10/19/22 06:06) Magnesium (10/19/22 06:06) Protime With Inr (10/19/22 06:06) Partial Thromboplastin Time (10/19/22 06:06) Troponin I Cyndi (10/19/22 06:06) Chest 1 View, Ap/Pa Only (10/19/22 06:06) Ed Iv/Invasive Line Start (10/19/22 06:06) Ns Iv 1000 Ml (Sodium Chloride 0.9%) (10/19/22 06:15) Covid 19 Inhouse Test (10/19/22 06:06) Influenza A And B By Pcr (10/19/22 06:06) Isolation Central Supply Req (10/19/22 06:06) Manual Differential (10/19/22 06:05) Labetalol Injection (Normodyne Injection (10/19/22 06:15) Labetalol Injection (Normodyne Injection (10/19/22 06:22) Blood Culture (10/19/22 06:29) Sputum Culture (10/19/22 06:29) Urinalysis (10/19/22 06:29) Urine Culture (10/19/22 06:29) Ed Iv/Invasive Line Start (10/19/22 06:29) Vital Signs Adult Sepsis Patie Q15M (10/19/22 06:29) Remove Rings In Anticipation O (10/19/22 06:29) Lactic Acid Analyzer (10/19/22 06:29) Cefepime Injection (Maxipime Injection) (10/19/22 06:30) Ct Angio Chest W (R/O Pe) (10/19/22 06:55) Iohexol Injection (Omnipaque 350 Mg/Ml 1 (10/19/22 07:30) Received Contrast (Hold Metformin- Contr (10/19/22 07:30) Ns (Ivpb) (Sodium Chloride 0.9% Ivpb Bag (10/19/22 07:30) Furosemide Injection (Lasix Injection) (10/19/22 07:45) Magnesium 1 Gm/100 Ml Ivpb (Magnesium Herrera (10/19/22 08:00) Troponin I Cyndi (10/19/22 07:58) Ekg Tracing (10/19/22 07:58) Drug Screen Stat (Urine) (10/19/22 08:01) Medications Given in ED Current Medications Medications Dose Ordered Sig/Cecilia Route Start Time Stop Time Status Last Admin Dose Admin Furosemide 40 mg ONCE ONCE IVP 10/19/22 07:45 10/19/22 07:46 DC 10/19/22 08:03 40 MG Iohexol 100 ml ONCE ONCE IV 10/19/22 07:30 10/19/22 07:31 DC 10/19/22 07:33 77 ML Labetalol HCl 20 mg ONCE ONCE IV 10/19/22 06:15 10/19/22 06:23 DC 10/19/22 06:59 10 MG Sodium Chloride 100 ml ONCE ONCE IV 10/19/22 07:30 10/19/22 07:31 DC 10/19/22 07:33 80 ML Vital Signs/I&O 10/19/22 10/19/22 10/19/22 05:59 05:59 06:00 Temp 37.1 Pulse 84 Resp 26 B/P (MAP) 185/118 (140) Pulse Ox 87 96 O2 Delivery Room Air Room Air Nasal Cannula O2 Flow Rate 3.00 Capillary Refill : Less Than 3 Seconds Blood Pressure Mean: 140 Progress Note : Progress Note VITALS ON ARRIVAL: -BP 185/118, HR 84, RR 26, O2 SAT 87% ON ROOM AIR O2 SATS UP TO 96-98% ON 3L/NC SEPSIS LAB ALSO ORDERED, PRECAUTION COVID AND FLU TESTING DONE GIVEN: -LABETALOL -LASIX -MAGNESIUM -ANTIBIOTICS BP DOWN TO 150'S/90'S, HR IN 70'S, O2 SATS REMAIN IN UPPER 90'S ON 3L/NC. 0700--CHEST PAIN IS GONE, SHORTNESS OF BREATH IS IMPROVED. NO FURTHER COMPLAINTS OF CHEST PAIN OR SHORTNESS OF BREATH FOR REMAINDER OF ER STAY REVIEWED PRIOR RECORDS INCLUDING RECENT OB ADMIT, ER VISITS, H&P'S, TESTS/PROCEDURES, DISCHARGE SUMMARIES. DISCUSSED TEST RESULTS, NEED FOR ADMIT AND PT IS AGREEABLE TO PLAN ECG Initial ECG Impression Date: Oct 19, 2022 Initial ECG Impression Time: 06:14 Initial ECG Rate: 71 Initial ECG Rhythm: Normal Sinus Initial ECG Comparisson: No Previous ECG Available Comment INTERPRETED BY ME EKG : EKG Time: 08:19 Rate: 71 Rhythm: Normal Sinus ECG Comparisson: Unchanged Comment INTERPRETED BY ME Diagnostic Imaging Comments CXR--PER RADIOLOGIST REPORT AT 0655 Heart size and pulmonary vascularity are normal. There are no infiltrates, effusions or pneumothoraces. IMPRESSION: No acute abnormalities in the chest. CT CHEST ANGIOGRAM--PER RADIOLOGIST REPORT AT 0743 COMPARISON: None available. FINDINGS: Vasculature: No pulmonary emboli. No CT evidence of pulmonary hypertension or right ventricular strain. Thoracic aorta is normal in caliber. No aortic dissection or pseudoaneurysm. Heart and mediastinum: Visualized thyroid is normal. No supraclavicular, axillary, or intra-thoracic lymphadenopathy. Heart is mildly enlarged. There is no pericardial effusion. Pleura: Trace bilateral pleural effusions. No pneumothorax. Lungs and airway: No endoluminal lesion in the trachea or central bronchi. Smooth septal thickening with groundglass attenuation scattered throughout the lungs. Upper abdomen: Allowing for the phase of contrast, no acute abnormality in the upper abdomen is seen. Musculoskeletal: No concerning osseous lesion. IMPRESSION: 1. No pulmonary emboli. 2. Mild pulmonary edema. 3. Trace bilateral pleural effusions. Reviewed: Reviewed by Me Departure Communication (Admissions) 0744--SPOKE WITH DR. ABERNATHY, ACCEPTS PT FOR ADMIT. ADVISES MAGNESIUM BOLUS AND DRIP. Impression Primary Impression: POST PERSISTENT PRE-ECLAMPSIA Additional Impressions: CHF (congestive heart failure) Elevated troponin History of asthma Cannabis dependence, daily use Disposition: ADMITTED INPATIENT Condition: Improved Admissions Decision to Admit Reason: Admit from ER (General) Decision to Admit/Date: Oct 19, 2022 Time/Decision to Admit Time: 07:45 Departure-Patient Inst. Referrals: [facility]ICE (PCP) Primary Care Physician REYNALDO OCHOA APRN (Family) Primary Care Physician LISA ARTIS DO Oct 19, 2022 08:01
[2022-10-19] MEDS: MAGNESIUM 1 GM/100 ML IVPB 100 ML IV SCH ×2 (08:03→09:08)
[2022-10-19 08:18] LABS: AMPHETAMINE SCREEN, URINE NEGATIVE (NEGATIVE); BARBITURATE SCREEN URINE NEGATIVE (NEGATIVE); BENZODIAZEPINES SCREEN URINE NEGATIVE (NEGATIVE); CANNABINOID SCREEN, URINE NEGATIVE (NEGATIVE); COCAINE SCREEN URINE NEGATIVE (NEGATIVE); METHADONE STAT NEGATIVE (NEGATIVE); OPIATE SCREEN URINE NEGATIVE (NEGATIVE); OXYCODONE STAT NEGATIVE (NEGATIVE); PROPOXYPHENE STAT NEGATIVE (NEGATIVE); TRICYCLIC ANTIDEPRESSANTS SCRE NEGATIVE (NEGATIVE)
[2022-10-19] MEDS: MAGNESIUM SULFATE DRIP 500 ML IV SCH (09:59)
[2022-10-19] MEDS ORDERED: LABETALOL 200 MG (NORMODYNE) TAB PO NR (10:00)
[2022-10-19] MEDS ORDERED: CALCIUM GLUC. 10% 4.65 MEQ/10 ML VIAL ONE (12:17)
--- NOTE | 2022-10-19 12:20 | History & Physical-Surgical ---
HPO-Surgical History of Present Illness Chief Complaint: PATIENT ARRIVED WITH COMPLAINT OF SOB, STATES HX OF ASTHMA. PATIENT STATES TOOK BX AT HOME PRIOR TO ARRIVAL. PATIENT VERBALIZED POST PARDIUM X3 DAYS STATES DELIVERY ON WEDNESDAY, RELEASED FROM HOSPITAL WITH PO MED FOR HTN. STATES HAS TAKEN ONE DOSE. PATIENT VERBALIZED SHE IS DIZZY Diagnosis/Surgical Indication: Hypertensive emergency w/ hx of preE PP day 5 Procedure: n/a Weight (Pounds): 165 Weight (Ounces): 0.0 Height (Feet): 5 Height (Inches): 3.00 Allergies and Home Medications Allergies Coded Allergies: levofloxacin (Verified Allergy, Severe, 12/08/16) tramadol (Verified Allergy, Unknown, HIVES, 07/10/14) Patient Home Medication List Home Medication List Reviewed: Yes Acetaminophen (Tylenol Extra Strength) 500 Mg Tablet, 500 MG PO Q6H Prescribed by: Antonino Whitlock on 10/18/22 1022 Budesonide/Formoterol Fumarate (Budesonide-Formoterol 160-4.5) 160 Mcg-4.5 Mcg/Actuation Hfa.aer.ad, (Reported) Entered as Reported by: BARI MARTINEZ on 10/14/22 160 Cetirizine HCl (Cetirizine HCl) 10 Mg Tablet, (Reported) Entered as Reported by: BARI MARTINEZ on 10/14/22 160 Fluticasone Propionate (Fluticasone Propionate) 50 Mcg/Actuation [place].susp, (Reported) Entered as Reported by: BARI MARTINEZ on 10/14/22 160 Ibuprofen (Ibuprofen) 600 Mg Tablet, 600 MG PO Q6H PRN for PAIN-MILD Prescribed by: Antonino Whitlock on 10/18/22 102 Labetalol HCl (Labetalol HCl) 200 Mg Tablet, 200 MG PO BID Prescribed by: Antonino Whitlock on 10/18/22 1022 Montelukast Sodium (Montelukast Sodium) 10 Mg Tablet, (Reported) Entered as Reported by: BARI MARTINEZ on 10/14/22 160 Vit W-Ca,Fe,FA(<1 mg) ( Vitamins) 27 Mg Iron-800 Mcg Tablet, 1 EACH PO DAILY, (Reported) Entered as Reported by: BARI MARTINEZ on 10/14/22 1605 Discontinued Medications Acetaminophen (Acetaminophen) 500 Mg Tablet, 1,000 MG PO Q8H PRN for PAIN-MILD (1-4) Discontinued Reason: No Longer Taking Prescribed by: ISRAEL FLORES on 08/24/19 1340 Ibuprofen (Ibu) 600 Mg Tablet, 600 MG PO Q6HR Discontinued Reason: No Longer Taking Prescribed by: ISRAEL FLORES on 08/24/19 1340 Ondansetron (Ondansetron Odt) 4 Mg Tab.rapdis, 4 MG PO Q4H Discontinued Reason: No Longer Taking Prescribed by: OSIRIS RAMOS on 01/01/22 1436 Oxycodone Hcl (Oxycodone IR) 5 Mg Tab, 5 MG PO Q4H PRN for PAIN-SEVERE (8-10) Discontinued Reason: No Longer Taking Prescribed by: ISRAEL FLORES on 08/24/19 1340 Past Dmbgkdu-Ndpypu-Hvaerm Hx Patient Social History Drug of Choice: MARIJUANA USE LAST WEEK 2nd Hand Smoke Exposure: Yes Recent Hopitalizations: No Have you traveled recently?: No Alcohol Use?: No Substance type: Marijuana Immunizations Up To Date Tetanus Booster (TDap): Less than 5yrs Pediatric: Yes Date of Influenza Vaccine: May 03, 2017 Seasonal Allergies Seasonal Allergies: Yes Surgeries Yes (R THUMB/TORN LIGAMENTS AND TENDONS, LITHOTRIPSY; D&C) Orthopedic, Renal Respiratory Yes Currently Using CPAP: No Currently Using BIPAP: No Cardiovascular Yes (PRE-ECLAMPSIA) Neurological No Reproductive System : No Hx : 3 Hx Para: 1 Hx Total # of Abortions (Spona: 2 Hx Reproductive Disorders: No Sexually Transmitted Disease: No HIV/AIDS: No Genitourinary Yes (S/P LITHOTRIPSY) Kidney Stones Gastrointestinal No Musculoskeletal Yes (R THUMB) Fractures Endocrine History of Endocrine Disorders: No HEENT History of HEENT Disorders: No Loss of Vision: Denies Hearing Impairment: Denies Cancer No Psychosocial History of Psychiatric Problem: No Integumentary History of Skin or Integumenta: No Blood Transfusions History of Blood Disorders: No Family Medical History Significant Family History: No Pertinent Family Hx Other Significan Family Hx: SOCIAL HISTORY: -DENIES SMOKING CIGARETTES -DRUGS--SMOKES MARIJUANA DAILY -ETOH--DENIES USE PAST SURGICAL HISTORY: -D&C X 1 -LITHOTRIPSY -RIGHT THUMB SURGERY -RIGHT KNEE ARTHROSCOPY Family Hx: Cardiovascular disease 19 FATHER Hypertension 19 FATHER Respiratory disorder 19 FATHER Exam Vital Signs Vital Signs 10/19/22 12:05 Temp 36.7 Pulse 86 Resp 20 B/P (MAP) 148/74 (98) Pulse Ox 99 O2 Delivery Nasal Cannula O2 Flow Rate 2.00 Capillary Refill : Less Than 3 Seconds Labs Laboratory Tests Test 10/19/22 06:05 10/19/22 06:12 10/19/22 06:37 10/19/22 07:23 Range/Units White Blood Count 14.5 H 4.3-11.0 10^3/uL Red Blood Count 3.53 L 3.80-5.11 10^6/uL Hemoglobin 9.4 L 11.5-16.0 g/dL Hematocrit 29 L 35-52 % Mean Corpuscular Volume 82 80-99 fL Mean Corpuscular Hemoglobin 27 25-34 pg Mean Corpuscular Hemoglobin Concent 32 32-36 g/dL Red Cell Distribution Width 13.3 10.0-14.5 % Platelet Count 406 H 130-400 10^3/uL Mean Platelet Volume 8.7 L 9.0-12.2 fL Immature Granulocyte % (Auto) 1 % Neutrophils (%) (Auto) 76 H 42-75 % Lymphocytes (%) (Auto) 14 12-44 % Monocytes (%) (Auto) 5 0-12 % Eosinophils (%) (Auto) 4 0-10 % Basophils (%) (Auto) 0 0-10 % Neutrophils # (Auto) 11.1 H 1.8-7.8 10^3/uL Lymphocytes # (Auto) 2.0 1.0-4.0 10^3/uL Monocytes # (Auto) 0.8 0.0-1.0 10^3/uL Eosinophils # (Auto) 0.5 H 0.0-0.3 10^3/uL Basophils # (Auto) 0.1 0.0-0.1 10^3/uL Immature Granulocyte # (Auto) 0.1 0.0-0.1 10^3/uL Neutrophils % (Manual) 79 % Lymphocytes % (Manual) 14 % Monocytes % (Manual) 4 % Eosinophils % (Manual) 3 % Blood Morphology Comment NORMAL Prothrombin Time 11.4 L 12.2-14.7 SEC INR Comment 0.8 0.8-1.4 Activated Partial Thromboplast Time 35 24-35 SEC D-Dimer 2.50 H 0.00-0.49 UG/ML Sodium Level 140 135-145 MMOL/L Potassium Level 4.0 3.6-5.0 MMOL/L Chloride Level 109 H 98-107 MMOL/L Carbon Dioxide Level 18 L 21-32 MMOL/L Anion Gap 13 5-14 MMOL/L Blood Urea Nitrogen 9 7-18 MG/DL Creatinine 0.77 0.60-1.30 MG/DL Estimat Glomerular Filtration Rate 110 BUN/Creatinine Ratio 12 Glucose Level 80 70-105 MG/DL Calcium Level 8.7 8.5-10.1 MG/DL Corrected Calcium 9.5 8.5-10.1 MG/DL Magnesium Level 1.5 L 1.6-2.4 MG/DL Total Bilirubin 0.2 0.1-1.0 MG/DL Aspartate Amino Transf (AST/SGOT) 30 5-34 U/L Alanine Aminotransferase (ALT/SGPT) 19 0-55 U/L Alkaline Phosphatase 124 40-136 U/L Troponin I 0.055 H <0.028 NG/ML B-Type Natriuretic Peptide 448.6 H <100.0 PG/ML Total Protein 6.8 6.4-8.2 GM/DL Albumin 3.0 L 3.2-4.5 GM/DL Influenza Type A (RT-PCR) Not Detected Not Detecte Influenza Type B (RT-PCR) Not Detected Not Detecte SARS-CoV-2 RNA (RT-PCR) Not Detected Not Detecte Lactic Acid Level 1.05 0.50-2.00 MMOL/L Urine Color ORANGE Urine Clarity CLOUDY Urine pH 6.5 5-9 Urine Specific [place] 1.015 L 1.016-1.022 Urine Protein 1+ H NEGATIVE Urine Glucose (UA) NEGATIVE NEGATIVE Urine Ketones NEGATIVE NEGATIVE Urine Nitrite NEGATIVE NEGATIVE Urine Bilirubin NEGATIVE NEGATIVE Urine Urobilinogen 0.2 < = 1.0 MG/DL Urine Leukocyte Esterase 2+ H NEGATIVE Urine RBC (Auto) 3+ H NEGATIVE Urine RBC >100 H /HPF Urine WBC 5-10 H /HPF Urine Squamous Epithelial Cells 2-5 /HPF Urine Crystals NONE /LPF Urine Bacteria FEW H /HPF Urine Casts NONE /LPF Urine Mucus NEGATIVE /LPF Urine Culture Indicated CULTURE PENDING Urine Opiates Screen NEGATIVE NEGATIVE Urine Oxycodone Screen NEGATIVE NEGATIVE Urine Methadone Screen NEGATIVE NEGATIVE Urine Propoxyphene Screen NEGATIVE NEGATIVE Urine Barbiturates Screen NEGATIVE NEGATIVE Ur Tricyclic Antidepressants Screen NEGATIVE NEGATIVE Urine Phencyclidine Screen NEGATIVE NEGATIVE Urine Amphetamines Screen NEGATIVE NEGATIVE Urine Methamphetamines Screen NEGATIVE NEGATIVE Urine Benzodiazepines Screen NEGATIVE NEGATIVE Urine Cocaine Screen NEGATIVE NEGATIVE Urine Cannabinoids Screen NEGATIVE NEGATIVE Test 10/19/22 08:16 Range/Units Troponin I 0.065 H <0.028 NG/ML General Appearance: Alert, Oriented X3 HEENT: Atraumatic Respiratory: Other (diffuse crackles bilateral lung bases) Cardiovascular: Regular Rate Abdominal: Normal Bowel Sounds Extremities: No Clubbing Skin: No Rashes Neuro: Normal Gait Psych/Mental Status: Mental Status NL Assessment/Plan Assessment and Plan Diagnosis: 22 yo pp day 5 NVD Hypertensive emergency pp after PreE diagnosis P: Admit with MgSO diuresis, monitoring reflexes, UOP strict. Labetalol IV prn and PO 200 mg TID. Will consider start Norvasc after MgSO is off. Admission Diagnosis Admission Status: Observation KWAKU ABERNATHY DO Oct 19, 2022 12:20 pm
[2022-10-19] MEDS: LABETALOL 200 MG (NORMODYNE) TAB PO SCH ×2 (13:16→21:12)
[2022-10-19] MEDS ORDERED: IBUPROFEN 600 MG (MOTRIN) TAB PO PRN (14:15)
[2022-10-19] MEDS ORDERED: ACETAMINOPHEN 500 MG TAB (TYLENOL) PO PRN (15:30)
[2022-10-19] MEDS: DOCUSATE SODIUM 100 MG (COLACE) CAP PO SCH (21:12)
[2022-10-20] VITALS (16 sets, daily range): BP systolic 138–179; BP diastolic 78–117
[2022-10-20] MEDS: MAGNESIUM SULFATE DRIP 500 ML IV SCH (01:03)
[2022-10-20] MEDS ORDERED: LACTATED RINGERS 1,000 ML IV SCH (02:45)
[2022-10-20] MEDS: LABETALOL 200 MG (NORMODYNE) TAB PO SCH ×2 (04:59→12:04)
[2022-10-20] MEDS ORDERED: FUROSEMIDE 40 MG/4 ML INJ (LASIX) IVP NR (08:00)
[2022-10-20] MEDS: DOCUSATE SODIUM 100 MG (COLACE) CAP PO SCH (08:03)
[2022-10-20] MEDS ORDERED: LABE200T10 PO (09:14)
[2022-10-20] MEDS ORDERED: FURO-125 PO (09:14)
[2022-10-20] MEDS ORDERED: AMLO-250 PO (09:14)
[2022-10-21] MEDS ORDERED: amLODIPine 5 MG (NORVASC) TAB PO SCH (09:30)
--- NOTE | 2022-10-21 14:42 | Physician Query Clarification ---
PQ-Further Specificity Admission/Discharge Admission Date: Oct 19, 2022 at 08:33 Discharge Date: Oct 20, 2022 at 17:00 Dr. Abernathy, The medical record reflects the following clinical scenario: History/Risk Factors: pre-eclampsia, HTN emergency, CHF Clinical Findings: Troponin 0.065 Treatment: labetalol 20 mg IV Question: Can you further specify the elevated troponin per the clinical indicators above? Please document a response in the Progress Notes or Discharge Summary. 1. MS 2 2. elevated troponin not further specified 3. Other, with explanation of the clinical findings. 4. Clinically undetermined, no explanation for the clinical findings. PHYSICIAN RESPONSE Can you specify per above: Clinically undetermined Explanation/Clinical Findings BNP and Troponin levels can be falsely elevated in the peripartum period due to increased cardiovascular stress/pressure without an myocardial infarction. ER physician had ordered these, which were not necessary. In responding to this query, please exercise your independent professional judgment. The purpose of this communication is to more accurately reflect the complexity of your patients condition. The fact that a question is asked does not imply that any particular answer is desired or expected. Thank you for your timely response to this clarification. Requestors name: Nette THIS PHYSICIAN QUERY FORM IS A PERMANENT PART OF THE MEDICAL RECORD NETTE SANCHEZ Oct 21, 2022 14:42 KWAKU ABERNATHY DO Oct 21, 2022 15:04
--- NOTE | 2022-10-21 14:46 | Physician Query Clarification ---
PQ-CHF Specificity Admission Date: Oct 19, 2022 at 08:33 Discharge Date: Oct 20, 2022 at 17:00 Dr. Abernathy, The medical record reflects the following clinical scenario: History/Risk Factors: pre-eclampsia, Hypertensive emergency, CHF Clinical Findings: BNP 448.6 Treatment: IVP 40 mg Lasix Question: Can you further specify the acuity &/or type of CHF per the clinical indicators above? Please document a response in the Progress Notes or Discharge Summary. 1. Acuity: Acute, Chronic or Acute on Chronic 2. Type: Systolic, Diastolic or Systolic & Diastolic 3. Unspecified: CHF cannot be further specified regarding type or acuity 4. Other, with explanation of clinical findings 5. Clinically undetermined, no explanation for clinical findings PHYSICIAN RESPONSE Acuity: Other (list below) Type: Other (explain below) Other, clinical findings BNP elevation occurs with normally due to increased cardiac output and stress. BNP should not have been ordered. The same as troponin, and d-dimer, all of which are not specific to any diagnosis in peripartum period. In responding to this query, please exercise your independent professional judgment. The purpose of this communication is to more accurately reflect the complexity of your patients condition. The fact that a question is asked does not imply that any particular answer is desired or expected. Thank you for your timely response to this clarification. Requestors name: Nette THIS PHYSICIAN QUERY FORM IS A PERMANENT PART OF THE MEDICAL RECORD NETTE SANCHEZ Oct 21, 2022 14:46 KWAKU ABERNATHY DO Oct 21, 2022 15:06
== END 2022-10-20 17:00 | disposition home or self-care (01) | DRG 776 ==
LOC: EDUNIT# 05:43 → ER 05:45 → LDRP 08:33
PROVIDERS: ADMIT Obstetrics & Gynecology; ATTEND Obstetrics & Gynecology
DX: O15.2 Eclampsia complicating the puerperium (principal); I16.1 Hypertensive emergency; O90.89 Other complications of the puerperium, not elsewhere classified; J45.909 Unspecified asthma, uncomplicated; F12.20 Cannabis dependence, uncomplicated; F41.9 Anxiety disorder, unspecified; Z20.822 Contact with and (suspected) exposure to COVID-19; Z88.1 Allergy status to other antibiotic agents; Z91.09 Other allergy status, other than to drugs and biological substances; Z79.899 Other long term (current) drug therapy
CPT/HCPCS: 36415; 71045; 71275; 80053; 80306; 81000; 83605; 83735; 83880; 84484; 85007; 85027; 85379; 85610; 85730; 87040; 87088; 87636; 93005; 93041